=== PATIENT | female | born 1950 | race Caucasian/White ===

== ENCOUNTER 2023-11-21 04:34 | Inpatient (IN) | payer MEDICARE, SELFPAY ==
[2023-11-20 18:42] VITALS: BP 108/73
[2023-11-20 19:02] LABS: % Basophils 0.4 % (0-2); % Eosinophils 3.6 % (0-6); % Immature Granulocytes 0.4 % (0-0.5); % Lymphocytes 16.9 % (20.5-51.1); % Monocytes 6.5 % (1.7-9.3); % Neutrophils 72.2 % (42.2-75.2); Absolute Basophils 0.1 10^3/uL (0-0.2); Absolute Eosinophils 0.4 10^3/uL (0-0.7); Absolute Immature Granulocytes 0.1 10^3/uL (0-0.05); Absolute Lymphocytes 1.9 10^3/uL (1.2-3.4); Absolute Monocytes 0.7 10^3/uL (0.1-0.6); Absolute Neutrophils 8.1 10^3/uL (1.4-6.5); Hematocrit 24.1 % (37.0-47.0); Hemoglobin 7.5 g/dL (12.0-16.0); Mean Corp Hgb Conc. 31.1 g/dL (33.0-37.0); Mean Corpuscular Hgb 23.9 pg (27.0-31.0); Mean Corpuscular Volume 76.8 fL (81.0-99.0); Mean Platelet Volume 9.5 fL (7.4-10.4); Nucleated Red Blood Cells % 0 %; Platelet Count 419 10^3/uL (130-400); Red Blood Cell Count 3.14 10^6/uL (4.20-5.40); White Blood Cell Count 11.3 10^3/uL (4.8-10.8)
[2023-11-20 19:22] LABS: ALT (SGPT) 11 U/L (0-35); AST (SGOT) 14 U/L (14-36); Albumin 3.9 g/dl (3.5-5.0); Alkaline Phosphatase 111 U/L (38-126); Blood Urea Nitrogen 23 mg/dl (7-17); Calcium 9.3 mg/dl (8.4-10.2); Carbon Dioxide 22 mmol/L (22-30); Chloride 101 mmol/L (98-107); Glucose 150 mg/dl (70-99); Potassium 3.9 mmol/L (3.5-5.1); Sodium 135 mmol/L (135-145); Total Bilirubin 0.8 mg/dl (0.2-1.3); Total Protein 6.9 g/dl (6.3-8.2); eGFR 33.63
[2023-11-21] VITALS (27 sets, daily range): BP systolic 81–138; BP diastolic 53–91; BMI 37.1; BMI 35.1
--- NOTE | 2023-11-21 01:09 | ED.GENMED ---
History of Present Illness
General
Chief Complaint: Rectal Bleeding
Source: patient
Exam Limitations: none
Time Seen by Provider: 11/21/23 00:17
Nursing documentation reviewed up to this point in time: agreed with
Travel History
Have you had any contact with someone who has COVID-19?: No
Do you have any symptoms of coronavirus? Fever > 100 degrees, chills, cough, shortness of breath, sore throat, loss of taste or smell, muscle aches, or headache?: No
History of Present Illness
History of Present Illness:
73-year-old female with past medical history of stroke A-fib CHF hypertension hyperlipidemia on Eliquis presents to the ER for rectal bleeding. She reports has been constipated has been straining but she has bloody colored stool seeping out. She
denies any abdominal pain. She does feel weak and lightheaded. Family reports patient is pale.
Past History
Past History
ED Past Medical History: Arrthythmia (AFib), CHF, HTN, Hypercholesterolemia, NIDDM, Hypothyroidism and Other (PNA )
ED Past Surgical History: Gynecological (Tubal ligation)
Social History
Tobacco: Non-smoker
Alcohol: None
Drug: None
Personal:
Living: with family
Employment: Retired
Family History
Family History: Diabetes
Review of Systems
Review of Systems
Allergies reviewed?: Yes
Other source history: family
All Other Systems: ROS reviewed and negative except as documented in HPI and ROS
Constitutional: Reports fatigue
EENT: Reports no symptoms
Respiratory: Reports no symptoms
Cardiac: Reports no symptoms
ABD/GI: Reports other (blood stools )
Musculoskeletal: Reports no symptoms
Skin: Reports no symptoms
Neurological: Reports no symptoms
Psychiatric: Reports no symptoms
Phy Exam
General Physical Exam
General Presentation: no apparent distress
General age: appears stated age
General Skin: warm, dry and pale
General Habitus: elderly
General Mental: alert
General Hydration: appears well hydrated
Cardiovascular Exam
Cardiovascular Exam: tachycardia
Pulmonary Exam
Pulmonary Exam: lungs clear and no respiratory distress
Gastrointestinal Exam
Gastrointestinal Exam: non tender, soft and other (Maroon/bloody-colored stool)
Neurological Exam
Neurological Exam: alert and oriented x3
[place] Coma Scale
Eye Opening: Spontaneous
Verbal Response: Oriented
Motor Response: Obeys Commands
GCS Total Score: 15
Musculoskeletal Exam
Musculoskeletal Exam: full ROM
Skin Exam
Skin Exam: normal color and warm/dry
Psychiatric Exam
Psychiatric Exam: normal mood/affect
Course
Orders/Labs/Results
Orders:
Orders
11/20/23 18:44
Electrocardiogram (*1) Urgent
Reason for Study: Bradycardia / Tachycardia
EKG- Treatment ONCE
PT/INR [Prothrombin Time] Urgent
11/20/23 18:57
Complete Blood Count/With Diff Urgent
Comprehensive Metabolic Panel Urgent
11/21/23 01:08
Electrocardiogram (*1) Stat
Reason for Study: Abdominal Pain
EKG- Treatment ONCE
IV Insert/Care/Rem.- Treatment PRN
11/21/23 01:09
Type+Screen Urgent
IV Insert/Care/Rem.- Treatment PRN
11/21/23 01:12
0.9% Sodium Chloride 500 ml [Nss] 500 ml IV BOLUS
11/21/23 01:34
* Blood Bank Products Urgent
Marybeth Orders: arabella
Blood Bank Products: *Packed RBC Leuko(PRBC's)
Quantity: 2
Transfuse Today: Yes
Reason: Bleeding
Patient will require pre-treatment for transfusion:: No
Comment: obtained
Abnormal Lab Results
11/20/23 11/21/23
18:57 01:02
WBC 11.3 H 10^3/uL
(4.8-10.8)
RBC 3.14 L 10^6/uL
(4.20-5.40)
Hgb 7.5 L g/dL
(12.0-16.0)
Hct 24.1 L %
(37.0-47.0)
MCV 76.8 L fL
(81.0-99.0)
MCH 23.9 L pg
(27.0-31.0)
MCHC 31.1 L g/dL
(33.0-37.0)
RDW 16.0 H %
(11.5-14.5)
Plt Count 419 H 10^3/uL
(130-400)
Abs Immat Gran (auto) 0.1 H 10^3/uL
(0-0.05)
Absolute Neuts (auto) 8.1 H 10^3/uL
(1.4-6.5)
Absolute Monos (auto) 0.7 H 10^3/uL
(0.1-0.6)
Lymphocytes % 16.9 L %
(20.5-51.1)
PT 24.3 H Sec
(11.4-14.6)
BUN 23 H mg/dl
(7-17)
Creatinine 1.6 H mg/dL
(0.6-1.0)
Glucose 150 H mg/dl
(70-99)
11/20/23 18:57
11/20/23 18:57
Vital Signs
Initial and Last Documented VS:
Initial Vital Signs
Temp Pulse Resp BP Pulse Ox
98.2 F 117 16 108/73 98
11/20/23 18:42 11/20/23 18:42 11/20/23 18:42 11/20/23 18:42 11/20/23 18:42
Last Documented Vital Signs
Temp Pulse Resp BP Pulse Ox
98.2 F 117 16 108/73 98
11/20/23 18:42 11/20/23 18:42 11/20/23 18:42 11/20/23 18:42 11/20/23 18:42
Channel Opener consulted with Physician
Channel Opener consulted with physician?: Yes
Name of Physician Consulted: alexandra
MDM/Problems Addressed
Differential Diagnosis Includes:
Not limited to GI bleed hemorrhoids anemia
MDM/Problems Addressed:
Patient is a 73-year-old female on Eliquis for A-fib history presents to the ER for rectal bleeding. Patient has had intermittent bleeding for the past several weeks with constipation on exam there is maroon-colored stool no active bleeding she is
pale and does complain of fatigue. She did take Eliquis tonight as well as this morning. Patient has a hemoglobin of 7.5 with symptomatic anemia on anticoagulation will transfuse. Case reviewed with ED physician
Chronic conditions affecting care:
A-fib on Eliquis
*Pulse Oximetry
Patient hypoxic: no
*Critical Care Note
Total Time (30-74mins, 75-104mins- exclusive of procedures): Not Applicable
ED Attending Note
-
Portions of this chart may have been created with voice recognition software.� Occasional wrong word or��sound alike� substitutions may have occurred due to the inherent limitations of voice recognition software.
Discharge Plan
Departure
Patient Disposition: Admit
Date of Disposition: 11/21/23
Time of Disposition: 01:36
Admit to: Telemetry
Admit to doctor: jose
Presentation/result/management discussed w/ accepting MD/DO: Hospitalist
Patient with high blood pressure during this ER visit?: No
Condition: Fair
Covid-19: Not Applicable
Discharge Problem:
Acute GI bleeding, Symptomatic anemia, Acute renal insufficiency
Prescriptions:
No Action
tamsulosin 0.4 MG capsule
0.4 mg PO DAILY
cholecalciferol (vitamin D3) 1,000 UNITS tablet
1,000 units PO DAILY
insulin degludec [Tresiba FlexTouch U-100] 100 UNIT/ML insulin pen
26 unit SQ DAILY@1600
atorvastatin 40 mg Tablet
40 mg PO DAILY
glipizide 10 mg tablet extended release 24hr
10 mg PO BID@0900,1700
metoprolol succinate 50 MG tablet extended release 24 hr
75 mg PO BID
levothyroxine 125 MCG tablet
125 mcg PO DAILY
Eliquis 5 mg Tablet
5 mg PO BID Qty: 60 0RF
furosemide 40 mg Tablet
40 mg PO DAILY Qty: 30 0RF
potassium chloride 20 mEq Tablet Extended Release
20 meq PO BID
diltiazem HCl 180 mg Capsule,Extended Release 24hr
360 mg PO DAILY Qty: 30 0RF
cefdinir 300 mg capsule
300 mg PO BID Qty: 10 0RF
Referrals:
Pallavi Clarke PA-C [Family Provider] -
Interventions
Interventions:
*ED COVID-19 Vaccine History Last Done: 11/20/23 18:42
Discharge Date and Time
Print Language: TAMAZIGHT
[2023-11-21 01:32] LABS: PT 24.3 Sec (11.4-14.6)
[2023-11-21] MEDS: NSS 500 IV (02:28)
--- NOTE | 2023-11-21 04:23 | HPS.HSE ---
Family Physician
-
Family Physician: Pallavi Clarke PAC
Chief Complaint
-
rectal bleed
History of Present Illness
HPI
73F on chr Eliquis, Persistent AF, PPM implant, Chr HFpEF seen at ER for evalautipon of rectal bleed.
Acute rectal bleeding preceded by constipated
last night noted bloody colored stool seeping out.
No abdominal pain
Associated weakness and lightheaded
Last dose of Eliquis
Medical History
Past Medical History
Past Medical History: Reports Other
Additional Past Medical History:
Arrhythmia (AFib), CHF, HTN, Hypercholesterolemia, NIDDM, Hypothyroidism and Other (PNA )
Past Surgical History: Reports Gynocological (tubal ligation )
Social History
Tobacco: Non-smoker
Alcohol: None
Drug: None
Personal:
Living: With Family
Family History
Family History: Not pertinent
Allergies / Home Medications
Allergies reflects when Allergies were last updated in [employer].
Home Medications with original date entered in [employer]
Allergy/Medication List:
Allergies
Allergy/AdvReac Type Severity Reaction Status Date / Time
sulfamethoxazole Allergy hypotension Verified 11/20/23 18:43
[From Bactrim]
trimethoprim [From Bactrim] Allergy hypotension Verified 11/20/23 18:43
Home Medications
cholecalciferol (vitamin D3) 25 mcg (1,000 unit) tablet 1,000 units PO DAILY Supplement 07/31/21
insulin degludec 100 unit/mL (3 mL) subcutaneous pen (Tresiba FlexTouch U-100 insulin) 26 unit SQ DAILY@1600 Diabetes 07/31/21
tamsulosin 0.4 mg capsule 0.4 mg PO DAILY Urinary issue 07/31/21
atorvastatin 40 mg tablet 40 mg PO DAILY High cholesterol 09/28/22
glipizide 10 mg tablet, extended release 24 hr 10 mg PO BID@0900,1700 Diabetes 09/28/22
levothyroxine 125 mcg tablet 125 mcg PO DAILY Thyroid 09/28/22
metoprolol succinate 50 mg tablet,extended release 24 hr 75 mg PO BID Arrhythmia 09/28/22
apixaban 5 mg tablet (Eliquis) 5 mg PO BID #60 tabs 10/01/22
furosemide 40 mg tablet 40 mg PO DAILY #30 tabs 10/01/22
potassium chloride 20 mEq tablet,extended release 20 meq PO BID 12/02/22
cefdinir 300 mg capsule 300 mg PO BID #10 caps 12/07/22
diltiazem HCl 180 mg capsule,extended release 24 hr 360 mg (2 x 180 mg) PO DAILY #30 caps 12/07/22
Review of Systems
-
Constitutional: Reports No Symptoms
EENT: Reports No Symptoms
Respiratory: Reports No Symptoms
Cardiac: Reports No Symptoms
Abdomen/GI: Reports Bloody Stools
: Reports No Symptoms
Musculoskeletal: Reports No Symptoms
Skin: Reports No Symptoms
Neurological: Reports No Symptoms
Endocrine: Reports No Symptoms
Hematologic/Lymphatic: Reports No Symptoms
Psych: Reports No Symptoms
Physical Exam
Vital Signs
Vital Signs
Temp Pulse Resp BP Pulse Ox
98.2 F 115 21 92/57 98
11/20/23 18:42 11/21/23 04:01 11/21/23 04:01 11/21/23 04:01 11/21/23 04:01
Physical Exam
General: No Apparent Distress, Comfortable and Conversant
HEENT: NormoCephalic, Anicteric and Other (pale conjunctiva )
Cardiac: S1/S2 and Irregular Rhythm; No Murmur
GI: Soft, Non Tender, Non Distended and Normal Bowel Sounds
Rectal: Maroon Stools
Genito-urinary: Deferred by me
Musculoskeletal: No Edema
Skin: Warm, Dry and Other (pale complexion )
Neuro: AO x 3
Psych: Calm
Laboratory Results
-
11/20/23 18:57
11/20/23 18:57
Laboratory Results
PT 24.3 Sec (11.4-14.6) H 11/21/23 01:02
INR 2.20 11/21/23 01:02
Total Bilirubin 0.8 mg/dl (0.2-1.3) 11/20/23 18:57
AST 14 U/L (14-36) 11/20/23 18:57
ALT 11 U/L (0-35) 11/20/23 18:57
Alkaline Phosphatase 111 U/L (38-126) 11/20/23 18:57
Data Reviewed
-
Lab Data: Labs Reviewed by me
Old Records: Reviewed
Impression/Plan
-
Reviewed VS: remarkable for HR 115 BP 97/66
Data
WCC 11
Hgb 7.5 - bl 12 -13 MCV 75
Plt 419
INR 2.2
BUN 23
Cr 1.6 -bl 1.5- 1.8
e GFR 33
11/21/23 @0108Hr EKG
ACCELERATED JUNCTIONAL RHYTHM
NONSPECIFIC ST AND T WAVE ABNORMALITY
ABNORMAL ECG
WHEN COMPARED WITH ECG OF 20-NOV-2023 18:47,
JUNCTIONAL RHYTHM HAS REPLACED SINUS RHYTHM
NONSPECIFIC T WAVE ABNORMALITY HAS REPLACED INVERTED T WAVES IN LATERAL LEADS
11/20/23 @ 1844Hr EKG:
SINUS TACHYCARDIA WITH 1ST DEGREE A-V BLOCK
LOW VOLTAGE QRS
NONSPECIFIC ST AND T WAVE ABNORMALITY
ABNORMAL ECG
WHEN COMPARED WITH ECG OF 06-DEC-2022 03:41,
IL INTERVAL HAS INCREASED
VENT. RATE HAS INCREASED BY 44 BPM
T WAVE INVERSION NOW EVIDENT IN LATERAL LEADS
Last hospitalist admission: 12/02/22 - 12/07/22
Pacemaker implant
Persistent atrial fibrillation with tachybradycardia
Chr HFpEF
UTI
ASSESSMENT & PLAN
Pending Rx reconciliation
Acute maroon/bloody-colored stool painless rectal bleed preceded by constipation and straining
Asso, ACBL severe symptomatic anemia with Hgb7.5
Micrcytosis
Mild hypotension due to acute blood loss
Last dose of Eliquis
DDx; Hemorrhoids, diverticulosis, AVM
- Held eliquis
- T & C
- Blood consented
- agree with 2 units Blood Tx
- To give IV Lasix 40mg in between each units of Blood
- Trend H&H
- IV PPI daily
- IVF
- check ferritin
- GI consult
HX Persistent AG with tachybrady syndrome
PPM implant
Coagulopathy due to Eliquis
- held Eliquis due to GIB
- Held Cardizem, Frusemide , metoprolol due to hypotension
HX chr HFpEH
- Not in acute exacerbation
- To give IV Lasix 40mg in between each units of Blood
- Held schedule PO Lasix
CKD3b
- so far stable Cr
- f/u Cr
IDDM
- Held glipizide
- 1/2 the dose pf Tresiba = 13 units HS due tp NPO
- ISS low
HX CVA
Hyperlipidemia
- on statin can cont when no longer NPO
DVT Px: SCd
Full code
IP TLM
--- NOTE | 2023-11-21 06:02 | W.PN.UPDATE ---
Update Note
Progress Note Update
Patient is hypotensive with BP 81/53, HR 116, resp 17 and 98% on RA. Currently is receiving the first unit of blood. One time order placed of NSS IV bolus of 250cc.
[2023-11-21] MEDS: NSS 250 IV (08:00)
[2023-11-21] MEDS: PROTONIX IV 40 MG IV (08:14)
[2023-11-21] MEDS: NSS (PRESERVATIVE FREE) 10 ML IV (08:14)
[2023-11-21 08:55] LABS: Iron 35 ug/dl (37-170)
[2023-11-21 09:05] LABS: Percent Saturation 8 % (20-50); Total Iron Binding Capacity 437 ug/dl (265-497)
--- NOTE | 2023-11-21 09:07 | CON.GI ---
Addendum entered and electronically signed by Velvet Romero DO 11/21/23 15:28:
The patient was seen and examined by me independently in collaboration with the nurse practitioner.
Past medical history/social history/medications/allergies/family history reviewed.
Lab data and imaging data reviewed.
Briefly, patient is a 73 y.o. 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
hematochezia over the last few weeks. No prior colonoscopy or noninvasive stool testing for CRC screening. She denies any family history of colorectal cancer or advanced polyps. She reports her daughter has Crohns disease, diagnosed at age 20. She
suffers from baseline constipation, does not take any laxatives, states miralax gives her diarrhea, which I suspect is actually overflow diarrhea in the setting of chronic constipation. She was found to be anemic on arrival, hgb 7.5, INR 2.20, MCV
76.8, BUN 23/Cr. 1.6. Iron panel c/w iron deficiency anemia.
Given microcytic, iron deficiency anemia without prior endoscopic evaluation, recommend performing both EGD and Colonoscopy on (as long as INR <1.7). Last dose of eliquis taken yesterday, will allow 48 hours for washout period. Recommend
transfuse to hemoglobin >8 in setting of cardiac disease. Please give a dose of miralax 17 g tonight, clear liquids and full colonoscopy prep tomorrow. Please have patient evaluated by cardiology for pre-procedural risk stratification.
Needs regular bowel regimen on discharge.
Original Note:
Consultation
-
Date/Time Consultation Requested: 11/21/23 @ 04:40
Date/Time Consultation Performed: 11/21/23 @ 09:00
Requesting Provider: RAVIN Powell
Performing Provider: RAVIN Siu; Dr. Brendan Proctor
Reason for Consultation: rectal bleed, Eliquis on hold
Medical History
Chief Complaint / HPI
Chief Complaint: rectal bleeding
History of Present Illness:
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
hypertension, hyperlipidemia, hypothyroidism, DM2, CKD stage 3, who presented to the emergency room with complaints of rectal bleeding, which we are being asked to evaluate for. The pt notes she has been progressively constipated over the past month
which is new. She notes occasional episodes of constipation with diarrhea but overall fairly regular. She will take stool softeners when she gets constipated which usually helps. She notes significant straining to move her bowels recently as they
are difficult to pass. She has tried stool softeners again but this has not helped. She notes for the past 2 weeks she has been seeing dark blood passing when she has a bowel movement. She admits to feeling a 'pop' when trying to have a BM prior to
this onset and felt blood gush at that time. She is unable to quantify the amount of blood but wears a panty liner and it does not saturate the pad. She assumes she has hemorrhoids but has never had a colonoscopy. She generally has not been feeling
well over the past week with complaints of weakness and fatigue. She does admit to STOCK but denies chest pain. She denies any history of GI bleed but notes she had some anemia about a year ago when she was hospitalized with pneumonia. Her appetite
has been somewhat down but feels this is secondary to not feeling well. She otherwise denies any fevers, chills, abdominal pain, nausea, vomiting, dysphagia, unintentional weight loss, or heartburn. She follows with Dr. Harper from cardiology for
Afib and has a PPM for sick sinus syndrome and has had some tachycardia which her medications are being adjusted. She denies any FH CRC or other GI cancers or disorders. She is on Eliquis with her last dose yesterday at 8/9pm. She denies use of
NSAID's. She denies prior EGD/colonoscopy as above. Routine labs on admission showed WBC 11.3, hemoglobin 7.5, MCV 76.8, platelets 419,000, INR 2.20, BUN 23, creatinine 1.6, sodium 135, potassium 3.9, serum iron 35, iron saturation 8 total bilirubin
0.8, AST 14, ALT 11, alk phos 111, with ferritin, vitamin B12, and folate levels pending. EKG showing sinus tachycardia with first-degree AV block with T wave inversion evident in lateral leads. She had a repeat EKG with no significant change
earlier this morning. Noted to be hypotensive and tachycardic this morning, transfused with 1 unit of blood and given an IV fluid bolus with improvement. She denies any complaints currently.
Past Medical History
Past Medical History: Arrhythmias (Chronic atrial fibrillation, tachybradycardia syndrome with permanent pacemaker placement), CHF (Preserved EF), HTN, Hypercholesterolemia, Hypothyroidism, IDDM and Other (CKD stage III)
Past Surgical History: Cardiac (PPM) and Gynecological (tubal ligation)
Family History
Family History: Reviewed & Not Pertinent
Allergies / Home Medications
Allergy/AdvReac Type Severity Reaction Status Date / Time
sulfamethoxazole Allergy hypotension Verified 11/20/23 18:43
[From Bactrim]
trimethoprim [From Bactrim] Allergy hypotension Verified 11/20/23 18:43
�Medication �Instructions �Recorded
cholecalciferol (vitamin D3) 25 1,000 units PO DAILY Supplement 07/31/21
mcg (1,000 unit) tablet
insulin degludec 100 unit/mL (3 26 unit SQ DAILY@1600 Diabetes 07/31/21
mL) subcutaneous pen (Tresiba
FlexTouch U-100 insulin)
tamsulosin 0.4 mg capsule 0.4 mg PO DAILY Urinary issue 07/31/21
atorvastatin 40 mg tablet 40 mg PO DAILY High cholesterol 09/28/22
glipizide 10 mg tablet, extended 10 mg PO BID@0900,1700 Diabetes 09/28/22
release 24 hr
levothyroxine 125 mcg tablet 125 mcg PO DAILY Thyroid 09/28/22
metoprolol succinate 50 mg 75 mg PO BID Arrhythmia 09/28/22
tablet,extended release 24 hr
apixaban 5 mg tablet (Eliquis) 5 mg PO BID #60 tabs 10/01/22
furosemide 40 mg tablet 40 mg PO DAILY #30 tabs 10/01/22
potassium chloride 20 mEq 20 meq PO BID 12/02/22
tablet,extended release
cefdinir 300 mg capsule 300 mg PO BID #10 caps 12/07/22
diltiazem HCl 180 mg 360 mg (2 x 180 mg) PO DAILY #30 12/07/22
capsule,extended release 24 hr caps
Review of Systems
-
History Source: Patient
Constitutional: Reports Fatigue
EENT: Reports No Symptoms
Respiratory: Reports Trouble Breathing
Cardiac: Reports No Symptoms
Abdomen/GI: Reports Constipated and Bloody Stools
: Reports No Symptoms
Musculoskeletal: Reports No Symptoms
Skin: Reports No Symptoms
Neurological: Reports Weakness (generalized)
Vital Signs
Temp Pulse Resp BP Pulse Ox
98.6 F 116 17 103/66 100
11/21/23 08:19 11/21/23 08:19 11/21/23 08:19 11/21/23 08:19 11/21/23 08:19
Physical Exam
Exam
General: Well Developed, Comfortable and Other (pale appearing female in NAD)
HEENT: Normocephalic, Anicteric and Atraumatic
Respiratory: Clear
Cardiac: S1/S2 and Regular Rhythm (tachycardia on tele monitor)
Breast: Deferred by me
GI: Soft, Non Tender, Non Distended, Normal Bowel Sounds and Other (obese abdomen)
Rectal: Brown (brown with BRB oozing from her rectum)
Musculoskeletal: No Edema
Skin: Warm and Dry
Neuro: Awake, Alert and Oriented
Psych: Calm
Results
WBC 11.3 10^3/uL (4.8-10.8) H 11/20/23 18:57
Hgb 7.5 g/dL (12.0-16.0) L 11/20/23 18:57
Hct 24.1 % (37.0-47.0) L 11/20/23 18:57
MCV 76.8 fL (81.0-99.0) L 11/20/23 18:57
Plt Count 419 10^3/uL (130-400) H 11/20/23 18:57
Absolute Neuts (auto) 8.1 10^3/uL (1.4-6.5) H 11/20/23 18:57
PT 24.3 Sec (11.4-14.6) H 11/21/23 01:02
INR 2.20 11/21/23 01:02
Sodium 135 mmol/L (135-145) 11/20/23 18:57
Potassium 3.9 mmol/L (3.5-5.1) 11/20/23 18:57
Chloride 101 mmol/L (98-107) 11/20/23 18:57
Carbon Dioxide 22 mmol/L (22-30) 11/20/23 18:57
BUN 23 mg/dl (7-17) H 11/20/23 18:57
Creatinine 1.6 mg/dL (0.6-1.0) H 11/20/23 18:57
Calcium 9.3 mg/dl (8.4-10.2) 11/20/23 18:57
Total Bilirubin 0.8 mg/dl (0.2-1.3) 11/20/23 18:57
AST 14 U/L (14-36) 11/20/23 18:57
ALT 11 U/L (0-35) 11/20/23 18:57
Alkaline Phosphatase 111 U/L (38-126) 11/20/23 18:57
Prior GI Procedures:
EGD: none
Colonoscopy: none
Assessment / Plan
-
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
hypertension, hyperlipidemia, hypothyroidism, DM2, CKD stage 3, who presented to the emergency room with complaints of rectal bleeding for the last 2 weeks intermittently with new onset of constipation, found to have symptomatic anemia with concern
for lower GI bleeding. Eliquis was held on admission and she was transfused with 1 unit of PRBC pending additional unit. Picture consistent with localized bleeding, possibly hemorrhoidal v diverticular. She is hemodynamically stable at this time,
although mildly tachycardic.
Problem list:
-Rectal bleeding
-Symptomatic microcytic anemia
-Chronic anticoagulation on Eliquis
-OSMANY on CKD
-Tachycardia
-SSS s/p PPM placement
-Afib on AC
Other current medical history:
-Hypothyroidism
-Hypertension
-Hyperlipidemia
-CHF with preserved EF
Recommendations:
-Etiology of rectal bleeding possibly secondary to hemorrhoids v diverticular disease with reported constipation prior v other
---With BRB oozing from her rectum mixed with brown stool seen, suspect this to be hemorrhoidal exacerbated with constipation and Eliquis but with no prior colonoscopy cannot exclude malignancy
-Will review with Dr. Proctor, as the pt has never had a colonoscopy may be beneficial to do inpatient with the degree of her anemia v flex v anoscopy.
-Continue to hold Eliquis
-Monitor h/h and transfuse for hgb less than 7
-CLD OK for today
-Consider bleeding scan v CTA if brisk significant bleeding (if renal function improves but she does have CKD)
-Discussed with Dr. Manzano
-Monitor hemodynamics
-Will need management of constipation as well, can start with MiraLax 1 capful daily
-Consider CRC pending above
-Will follow
-
-
Thank you for consultation and allowing me to participate in the patient's care. Please call the loss prevention agent GI physician during the after hours with any questions or concerns.
[2023-11-21 09:48] LABS: Ferritin 8.3 ng/ml (11.1-264.0)
[2023-11-21 10:19] LABS: Folate 14.8 ng/ml (2.76-20); Vitamin B12 241 pg/ml (239-931)
[2023-11-21] MEDS: LASIX 40 MG IV ×2 (10:45→10:51)
[2023-11-21 11:49] LABS: Glucose - Point of Care 95 mg/dl (70-99)
--- NOTE | 2023-11-21 11:49 | W.PN.HOSP.TC ---
Addendum entered and electronically signed by Demetria Manzano MD 11/21/23 12:06:
non-billable note (H&P signed same calendar date)
Original Note:
Today's Communication/Plan
-
see outlined plan
Assessment / Plan
Assessment / Plan
Assessment:
Lower GI and rectal bleeding, exacerbated by Eliquis
symptomatic microcytic anemia
- Monitor Hb - next repeat is 2pm. Has received 2 urgent units PRBCs for Hb of 7.5 (baseline from last year 12)
- Iron deficiency on labs - start IV iron course tomorrow
- GI consulted
- considering colonoscopy vs flex vs anoscopy
- for now, continue clears
- continue Miralax
- may need colorectal input depending on etiology
Parox A. Fib
Hx of SSS s/p PPM
Chronic HFpEF
- resume Metoprolol with parameters; tachycardic in setting of bleeding
- hold Cardizem
- hold Eliquis
- holding oral Lasix
- IV Lasix given in between PRBCs; monitor I/Os, weights
CKD 3b
- monitor labs
Hypothyroidism - continue LT4
Essential Hypertension
- resume Metoprolol with parameters
- hold Cardizem
Hyperlipidemia - statin
type 2 DM
- continue SSI
- check A1c
- holding Jardiance/Glipizide
- continue Tresiba at 50% dose (13 units from 26 units) while limited intake
reactive thrombocytosis in setting of bleeding
DVT ppx: SCDs
Code: Full
Anticipated Discharge: > 48 hours
Subjective/Interval History
-
Date of Service: November 21, 2023
receiving 2nd unit of blood
no current complaints
Objective Data
-
Labs:
Laboratory Results
0411/21/23 11/21/23
01:02 06:00 11:00
WBC Pending
Hgb Pending
Hct Pending
Plt Count Pending
PT 24.3 H
INR 2.20
Sodium Pending
Potassium Pending
Chloride Pending
Carbon Dioxide Pending
BUN Pending
Creatinine Pending
Glucose Pending
Calcium Pending
11/21/23
14:00
WBC
Hgb Pending
Hct Pending
Plt Count
PT
INR
Sodium
Potassium
Chloride
Carbon Dioxide
BUN
Creatinine
Glucose
Calcium
Vital Signs:
Vital Signs
Temp Pulse Resp BP Pulse Ox
98.7 F 117 14 105/74 97
11/21/23 11:30 11/21/23 11:30 11/21/23 11:30 11/21/23 11:30 11/21/23 09:48
I&O
11/20/23 11/21/23 11/22/23
06:59 06:59 06:59
Intake Total 0 / 0 750 / 750
Balance 0 / 0 750 / 750
Physical Exam
-
General: No Apparent Distress and Obese
HEENT: Normocephalic, Atraumatic and Other (pale)
Respiratory: Clear to Auscultation; Negative Wheezes or Rales
Cardiac: Regular Rhythm, S1/S2 and Tachycardic
Rectal: Deferred by Provider (see GI note)
Genito-urinary: No Costovertebral Tender
Neuro: AO x 3
Psych: Calm
Data Reviewed
-
Total Time Spent with Patient (in minutes): 51
Labs: Labs Reviewed by me
[2023-11-21] MEDS: NOVOLOG FLEXPEN-LOW RESISTANCE SC ×2 (11:53→11:54)
[2023-11-21] MEDS: TOPROL XL 50 MG PO ×2 (14:14→19:53)
--- NOTE | 2023-11-21 15:00 | PTCARENOTE ---
11/20- Patient transferred and oriented to unit without issue. AAOX3; Skin=pale but CDI; Patient is able to independently walk with steady gait to bathroom. +PulsesX4; Cool pale extremitiesX4. Patient currently denies any complaints or needs.
--- NOTE | 2023-11-21 15:29 | W.PN.UPDATE ---
Update Note
Progress Note Update
Billing purposes
[2023-11-21 16:21] LABS: Glucose - Point of Care 241 mg/dl (70-99)
--- NOTE | 2023-11-21 16:32 | CON.CAR ---
Addendum entered and electronically signed by Rd Alvarado MD 11/21/23 18:24:
I saw and examined the patient.
The COMMUNITY SERVICE COORDINATOR's note was reviewed and I agree with the note.
73-year-old patient with paroxysmal atrial fibrillation, mitral annular calcification with moderate stenosis, hypertension diabetes prior subdural hematoma, heart failure preserved ejection fraction who was admitted with GI bleeding in the setting
of Eliquis. Patient had bloody stool and was noted to have severe anemia with a hemoglobin of 7.5 now admitted to the hospitalist with consultation by GI. ECG with possible atrial tachycardia versus sinus tach with first-degree AV block. Patient
normally on combination of beta-joseph and diltiazem. Patient has received PRBC and hemoglobin is up to 10.8. Last dose of Eliquis was about 24 hours ago.
-Hold Eliquis
-Monitor volume status with administration of PRBC.
-By hospitalist at a lower dose. Will continue to monitor response.
-With patient's prior history of PAF/atrial arrhythmias and mitral stenosis she has some increased risk for procedures but considering procedure with GI bleeding would be reasonable to plan to proceed with colonoscopy and EGD on . Patient's
condition will be reassessed tomorrow regarding stability to undergo procedures .
Original Note:
Consultation
Consultation Request
Date/Time Consultation Requested: 11/21/23 16:15
Date/Time Consultation Performed: 11/21/23 16:30
Requesting Provider: RAVIN Siu
Performing Provider: RAVIN Reyes for Dr. Alvarado
Reason for Consultation: Risk assessment
Medical History
-
Chief Complaint: BRBPR
History of Present Illness:
Indu Quesada is a 73-year-old female (known to Dr. Hsu, her primary scrap hooker), with paroxysmal atrial fibrillation (on apixaban), mitral stenosis, prior CVA, hypertension, type 2 diabetes melitis, prior subdural/SAH hemorrhage, HFpEF, and
chronic kidney disease who presented to the emergency department with a chief complaint of bright red blood per rectum. She endorsed constipation and had bloody stool with associated lightheadedness. Hemoglobin on arrival 7.5, last hemoglobin 12.0
in Dec, 2022. She has received 2 units of packed red blood cells. Hemoglobin 10.8 this afternoon. GI plans for colonoscopy. Cardiology was consulted for risk assessment.
Past Medical History
Past Medical History: Arrhythmias (Paroxysmal atrial fibrillation), CHF, CVA, HTN, Hypercholesterolemia, NIDDM, Renal Failure (CKD) and Valvular Disease (Mitral stenosis)
Past Surgical History: None
Social History
Tobacco: Non-Smoker
Alcohol: None
Drug: None
Living: With Family
Family History
Family History: Other (Father from CVA at age 57. Mom had CABG at the age of 68.)
Allergies / Home Medications
Allergy/AdvReac Type Severity Reaction Status Date / Time
sulfamethoxazole Allergy hypotension Verified 11/20/23 18:43
[From Bactrim]
trimethoprim [From Bactrim] Allergy hypotension Verified 11/20/23 18:43
�Medication �Instructions �Recorded �Confirmed �Type
cholecalciferol (vitamin D3) 25 1,000 units PO DAILY Supplement 07/31/21 11/21/23 History
mcg (1,000 unit) tablet
insulin degludec 100 unit/mL (3 26 unit SQ HS Diabetes 07/31/21 11/21/23 History
mL) subcutaneous pen (Tresiba
FlexTouch U-100 insulin)
tamsulosin 0.4 mg capsule 0.4 mg PO DAILY Urinary issue 07/31/21 11/21/23 History
atorvastatin 40 mg tablet 40 mg PO HS High cholesterol 09/28/22 11/21/23 History
glipizide 10 mg tablet, extended 10 mg PO BID@0800,1700 Diabetes 09/28/22 11/21/23 History
release 24 hr
levothyroxine 125 mcg tablet 125 mcg PO DAILY Thyroid 09/28/22 11/21/23 History
apixaban 5 mg tablet (Eliquis) 5 mg PO BID #60 tabs 10/01/22 11/21/23 Rx
furosemide 40 mg tablet 40 mg PO DAILY #30 tabs 10/01/22 11/21/23 Rx
potassium chloride 20 mEq 20 meq PO HS 12/02/22 11/21/23 History
tablet,extended release
diltiazem HCl 360 mg 360 mg PO DAILY Blood Pressure 11/21/23 11/21/23 History
capsule,extended release 24 hr
empagliflozin 25 mg tablet 25 mg PO DAILY Diabetes 11/21/23 11/21/23 History
(Jardiance)
metoprolol succinate 100 mg 100 mg PO BID Blood Pressure 11/21/23 11/21/23 History
tablet,extended release 24 hr
Physical Exam
Vital Signs
Temp Pulse Resp BP Pulse Ox
98.4 F 91 16 120/77 99
11/21/23 15:49 11/21/23 15:49 11/21/23 15:49 11/21/23 15:49 11/21/23 15:49
Impression / Plan
-
Pre-procedure risk assessment - EGD & colonoscopy
-Chest pain free
-No recent HF exacerbation
-No shortness of breath
Anemia, in the setting of LGIB
-S/P PRBC x 2
-Apixaban is on hold
-GI plans for EGD and colonoscopy
Tachycardia
-Possibly atrial tachycardia
-AV agents on hold in the setting of hypotension
-No telemetry for review, reviewed with nurse, may need to resume at low dose
Paroxysmal atrial fibrillation
-AV naveen agents on hold
-Oral Anticoagulation: Apixaban 5mg BID on hold as above
-[id number]: score 7 (Heart failure, HTN, Diabetes Mellitus, prior Stroke/TIA, age 65-73, female gender)
HFpEF, chronic
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
Mod mitral stenosis, peak/mean gradient 18/6mmHg
CKD3b
Type II DM
Data Reviewed
-
EKG: Report Reviewed by me (Sinus tachycardia, possibly atrial tachycardia, rate 114)
Medical Tests (Nuc Med, Echo etc): Report Reviewed by me (Echo as above)
Labs: Labs Reviewed by me
Old Records: Reviewed
[2023-11-21 16:35] LABS: Hematocrit 33.4 % (37.0-47.0); Hemoglobin 10.8 g/dL (12.0-16.0); Mean Corp Hgb Conc. 32.3 g/dL (33.0-37.0); Mean Corpuscular Hgb 25.9 pg (27.0-31.0); Mean Corpuscular Volume 80.1 fL (81.0-99.0); Mean Platelet Volume 9.9 fL (7.4-10.4); Platelet Count 396 10^3/uL (130-400); Red Blood Cell Count 4.17 10^6/uL (4.20-5.40); Red Cell Dist. Width 15.9 % (11.5-14.5); White Blood Cell Count 9.9 10^3/uL (4.8-10.8)
[2023-11-21 16:59] LABS: Blood Urea Nitrogen 22 mg/dl (7-17); Carbon Dioxide 23 mmol/L (22-30); Chloride 108 mmol/L (98-107); Estimated Creatinine Clearance 32 ml/min; Glucose 246 mg/dl (70-99); Potassium 3.8 mmol/L (3.5-5.1); Sodium 139 mmol/L (135-145); eGFR 33.63
[2023-11-21] MEDS: NOVOLOG FLEXPEN-LOW RESISTANCE 2 UNITS SC (17:45)
[2023-11-21 21:06] LABS: Glucose - Point of Care 246 mg/dl (70-99)
[2023-11-21] MEDS: KCL 20 MEQ PO (21:08)
[2023-11-21] MEDS: LIPITOR 40 MG PO (21:08)
[2023-11-21] MEDS: LANTUS 0.130000000000000004 UNITS SC (21:08)
[2023-11-22 03:20] VITALS: BP 121/77
--- NOTE | 2023-11-22 04:45 | DOWNTIME ---
There was a Retrotope Client Striker Out Downtime on 11/22/2023 from 0100 to 11/22/2023 at 0439. Downtime documentation of patient's care, including medication administrations, has been reconciled in the electronic record per guidelines. Refer to the
patient's paper chart under the miscellaneous tab to see printed paper medication records and downtime forms.
[2023-11-22 05:05] VITALS: BMI 34.9
[2023-11-22] MEDS: SYNTHROID 125 MCG PO (06:13)
[2023-11-22 07:47] LABS: Glucose - Point of Care 77 mg/dl (70-99)
[2023-11-22] MEDS: NOVOLOG FLEXPEN-LOW RESISTANCE SC ×2 (07:49→11:44)
[2023-11-22 07:55] VITALS: BP 110/73
[2023-11-22] MEDS: FLOMAX 0.400000000000000022 MG PO (08:04)
[2023-11-22] MEDS: MIRALAX 17 GRAMS PO (08:04)
[2023-11-22] MEDS: PROTONIX IV 40 MG IV (08:05)
[2023-11-22] MEDS: TOPROL XL 50 MG PO (08:05)
[2023-11-22] MEDS: NSS (PRESERVATIVE FREE) 10 ML IV (08:05)
[2023-11-22 09:12] LABS: Glycohemoglobin (HgbA1c) 7.6 % (4.0-5.6)
[2023-11-22 09:36] LABS: Hematocrit 31.1 % (37.0-47.0); Hemoglobin 9.7 g/dL (12.0-16.0); Mean Corp Hgb Conc. 31.2 g/dL (33.0-37.0); Mean Corpuscular Hgb 25.2 pg (27.0-31.0); Mean Corpuscular Volume 80.8 fL (81.0-99.0); Mean Platelet Volume 10.1 fL (7.4-10.4); Platelet Count 355 10^3/uL (130-400); Red Blood Cell Count 3.85 10^6/uL (4.20-5.40); Red Cell Dist. Width 15.9 % (11.5-14.5); White Blood Cell Count 10.1 10^3/uL (4.8-10.8)
[2023-11-22 09:51] LABS: INR 1.52; PT 18.4 Sec (11.4-14.6)
[2023-11-22 10:13] LABS: Blood Urea Nitrogen 20 mg/dl (7-17); Calcium 8.9 mg/dl (8.4-10.2); Carbon Dioxide 23 mmol/L (22-30); Chloride 111 mmol/L (98-107); Estimated Creatinine Clearance 36 ml/min; Glucose 74 mg/dl (70-99); Potassium 4.1 mmol/L (3.5-5.1); Sodium 138 mmol/L (135-145); eGFR 39.48
--- NOTE | 2023-11-22 11:06 | W.PN.GI.CBS2 ---
Today's Communication / Plan
-
EGD and Colonoscopy tomorrow.
Assessment / Plan
-
73-year-old female with a past medical history significant for persistent atrial fibrillation on Eliquis, tachy-thanh syndrome s/p dual chamber PPM, moderate mitral stenosis, CKD 3b, DM2, chronic HFpEF, HLD, hypothyroidism admitted with persistent
small-volume hematochezia, found to be profoundly anemic with iron deficiency, but otherwise, hemodynamically stable.
Recommendations:
-Etiology of rectal bleeding possibly secondary to benign anorectal pathology such as hemorrhoids vs. diverticular disease vs. AVM vs. Dieulafoy vs. ischemic vs. bleeding polyp vs. malignancy
-No prior colonoscopy, family history (daughter) with Crohn's disease; history/clinical symptoms not c/w IBD
-Hgb 7.5 --> 10.8 s/p 2 units of PRBC, repeat this AM was 9.7, recommend maintaining hemoglobin >8 in setting of cardiac disease
-maintain 2 large-bore peripheral gauge IVs
-Iron panel c/w iron deficiency-- started on IV iron
-Continue to hold eliquis
-Appreciate cardiology consultation, will plan to proceed with EGD and Colonoscopy tomorrow
-Clear liquid diet and prep today, NPO PMN
-If patient develops hemodynamically unstable GI Bleeding, please obtain stat CTA (borderline Cr, now improved from 1.6 -->1.4 in setting of CKD3b)
-Needs daily bowel regimen upon discharge
Subjective
Subjective
Date of Service: November 22, 2023
Patient seen and examined at the bedside, overall offers no complaints. She was transfused with 2 units of PRBC, repeat hemoglobin was 10.8, this morning is down to 9.7. She states she continued to have rectal bleeding overnight. INR today is
1.5, down from 2.2 yesterday. She is amenable to both EGD and colonoscopy tomorrow for evaluation of both iron deficiency anemia as well as recurrent rectal bleeding.
Objective
Data Reviewed
Laboratory Data:
Laboratory Results
11/22/23 08:42
11/22/23 08:42
Laboratory Results
PT 18.4 Sec (11.4-14.6) H 11/22/23 08:42
INR 1.52 11/22/23 08:42
Total Bilirubin 0.8 mg/dl (0.2-1.3) 11/20/23 18:57
AST 14 U/L (14-36) 11/20/23 18:57
ALT 11 U/L (0-35) 11/20/23 18:57
Alkaline Phosphatase 111 U/L (38-126) 11/20/23 18:57
Vital Signs and I&O:
Vital Signs
Temp Pulse Resp BP Pulse Ox
97.8 F 124 16 110/73 97
11/22/23 07:55 11/22/23 07:55 11/22/23 07:55 11/22/23 07:55 11/22/23 07:55
I&O
11/21/23 11/22/23 11/23/23
06:59 06:59 06:59
Intake Total 0 / 0 2189
Balance 0 / 0 2189
Physical Exam
Physical Exam
HEENT: Moist mucous membranes
Cardiology: Normal Sinus Rhythm, S1 and S2
Pulmonary: Clear and Other
GI: Soft, Non Distended, Non Tender and Normal Bowel Sounds
Extremities: No Edema
Neuro: Non Focal
[2023-11-22 11:40] LABS: Glucose - Point of Care 85 mg/dl (70-99)
--- NOTE | 2023-11-22 11:55 | W.PN.CD ---
Addendum entered and electronically signed by Spencer Neal MD 11/22/23 12:25:
I saw and examined the patient.
The AGRONOMY TEACHER's note was reviewed and I agree with the note.
Comment: 73F with GIB. Noted to have SVT stuck at 115 bpm
- increase BB
- CV would be challenging given apixaban hold and some uncertainty regarding her ability to tolerate AC afterward.
- OK for EGD/colon in AM
Original Note:
Today's Communication / Plan
-
-increase metoprolol and follow HR/BP
-Egd and colonoscopy are planned for tomorrow
Impression / Plan
-
73-year-old female (known to Dr. Hsu, her primary lawn maintenance worker), with paroxysmal atrial fibrillation (on apixaban), mitral stenosis, prior CVA, hypertension, type 2 diabetes melitis, prior subdural/SAH hemorrhage, HFpEF, and chronic kidney
disease who presented to the emergency department with blood stool and a hemoglobin of 7.5. Eliquis held and PRBC's given.
Pre-procedure risk assessment:
-EGD & colonoscopy (plan is for )
-With patient's prior history of PAF/atrial arrhythmias and mitral stenosis she has some increased risk for procedures, but considering active GI bleeding, would be reasonable to plan to proceed with colonoscopy and EGD on . Denies any SOB,
laying flat without difficulty. Monitor volume and telemetry.
Anemia, in the setting of GIB
-S/P PRBC x 2
-Apixaban is on hold
-GI plans for EGD and colonoscopy
-per patient, blood in stool still noted today
Tachycardia
-looks like atrial tachycardia to my review of telemetry
-some palps at times, but mostly asymptomatic
-BP's were on low end, so diltiazem held and BB started at lower dose. I will decrease to her usual BB dose (metoprolol 100 mg PO BID)
Paroxysmal atrial fibrillation
-BB/CCB plan as above
-Eliquis held
-follow telemetry
HFpEF, chronic
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
Mod mitral stenosis, peak/mean gradient 18/6mmHg
CKD3b
Type II DM
Physical Exam
Vital Signs/Labs
Vital Signs
Temp Pulse Resp BP Pulse Ox
97.8 F 124 16 110/73 97
11/22/23 07:55 11/22/23 07:55 11/22/23 07:55 11/22/23 07:55 11/22/23 07:55
11/21/23 11/22/23 11/23/23
06:59 06:59 06:59
Actual Weight 92 kg 86.438 kg
11/22/23 08:42
11/22/23 08:42
PT 18.4 Sec (11.4-14.6) H 11/22/23 08:42
INR 1.52 11/22/23 08:42
Physical Exam
Constitutional: No acute distress
EENT: Anicteric
Cardiovascular: Rhythm & rate is regular (regular, but tachycardic)
Respiratory: Respiratory effort normal and Lungs clear to auscul.
GI: Soft, Non tender and Normal bowel sounds
Neuro/Psych: AO x 3
Other: Skin (warm and dry)
Data Reviewed
-
Date of Service: November 22, 2023
EKG: Other (atrial tachycardia)
Labs: Labs Reviewed by me
[2023-11-22 12:03] VITALS: BP 106/73
[2023-11-22] MEDS: DULCOLAX 10 MG PO (12:18)
--- NOTE | 2023-11-22 12:30 | W.PN.HOSP.TC ---
Today's Communication/Plan
-
home BB dose; monitor tele
clears for now and prep. NPO p MN for EGD/Colon
Assessment / Plan
Assessment / Plan
Assessment:
Lower GI and rectal bleeding, exacerbated by Eliquis
symptomatic microcytic anemia
- s/p 2 units PRBC. Hb 9.7. Continue to trend
- Iron deficiency on labs - continue IV iron course
- GI following
- continue clears; prep tonight and NPO for EGD/Colon tomorrow
Parox A. Fib
Hx of SSS s/p PPM
Chronic HFpEF
- resume Metoprolol 100mg BID with parameters; tachycardic (SVT) in setting of bleeding
- hold Cardizem
- hold Eliquis
- holding oral Lasix
- IV Lasix prn if giving PRBCs; monitor I/Os, weights
CKD 3b
- monitor labs
Hypothyroidism - continue LT4
Essential Hypertension
- resume Metoprolol with parameters
- hold Cardizem
Hyperlipidemia - statin
type 2 DM
- A1c 7.6%
- holding Jardiance/Glipizide
- continue SSI
- continue Tresiba at 50% dose (13 units from 26 units) while limited intake
reactive thrombocytosis in setting of bleeding
DVT ppx: SCDs
Code: Full
Anticipated Discharge: > 48 hours
Subjective/Interval History
-
Date of Service: November 22, 2023
no complaints
Hb 9.7, INR 1.5
reports rectal bleeding overnight
Objective Data
-
Labs:
Laboratory Results
11/22/23
08:42
WBC 10.1
Hgb 9.7 L
Hct 31.1 L
Plt Count 355
PT 18.4 H
INR 1.52
Sodium 138
Potassium 4.1
Chloride 111 H
Carbon Dioxide 23
BUN 20 H
Creatinine 1.4 H
Glucose 74
Calcium 8.9
Vital Signs:
Vital Signs
Temp Pulse Resp BP Pulse Ox
98.0 F 123 16 106/73 96
11/22/23 12:03 11/22/23 12:03 11/22/23 12:03 11/22/23 12:03 11/22/23 12:03
I&O
11/21/23 11/22/23 11/23/23
06:59 06:59 06:59
Intake Total 0 / 0 2189
Balance 0 / 0 2189
Physical Exam
-
General: No Apparent Distress
HEENT: Normocephalic and Atraumatic
Cardiac: Regular Rhythm, S1/S2 and Tachycardic
Genito-urinary: No Costovertebral Tender
Neuro: AO x 3
Psych: Calm
Data Reviewed
-
Total Time Spent with Patient (in minutes): 42
Labs: Labs Reviewed by me
--- NOTE | 2023-11-22 12:34 | CM ---
Patient received consult for advance directive, paperwork provided to patient. Initial assessment completed. Patient reports she lives wit her son, daughter, daughter in law, and granddaughter in a 2 story home, patient mostly resides on first
floor, ramp to enter with half a step onto porch. Patient reports she has a walker at home and a wheelchair from her , patient reports she mostly ambulates without device. Patient reports VN in the past after a stroke, unsure with who, denies
SNF. Patient confirms PCP Pallavi Clarke through [facility], pharmacy [facility], unsure if she has prescription coverage. Patient denies food insecurities at home. Per Hospitalist note, plan for EGD/colonoscopy . CM will
continue to follow for discharge planning needs.
Plan; home no needs, watch for VN needs.
[2023-11-22] MEDS: FERRLECIT 110 MG IV (13:08)
[2023-11-22] MEDS: NULYTELY SOLUTION 4 LITERS PO (15:43)
[2023-11-22 15:55] VITALS: BP 124/93
[2023-11-22 17:10] LABS: Glucose - Point of Care 210 mg/dl (70-99)
[2023-11-22] MEDS: NOVOLOG FLEXPEN-LOW RESISTANCE 2 UNITS SC (17:14)
[2023-11-22 19:00] VITALS: BP 132/69
[2023-11-22] MEDS: TOPROL XL 100 MG PO (20:28)
[2023-11-22 22:01] LABS: Glucose - Point of Care 184 mg/dl (70-99)
[2023-11-22] MEDS: KCL 20 MEQ PO (22:05)
[2023-11-22] MEDS: LANTUS 0.130000000000000004 UNITS SC (22:05)
[2023-11-22] MEDS: LIPITOR 40 MG PO (22:05)
[2023-11-22 23:00] VITALS: BP 164/98
[2023-11-23 03:00] VITALS: BP 132/90
[2023-11-23 05:45] VITALS: BMI 35.0
[2023-11-23 06:06] LABS: Glucose - Point of Care 108 mg/dl (70-99)
[2023-11-23] MEDS: SYNTHROID 125 MCG PO (06:09)
[2023-11-23] MEDS: NOVOLOG FLEXPEN-LOW RESISTANCE SC ×3 (06:10→17:53)
[2023-11-23 08:00] VITALS: BP 116/79
--- NOTE | 2023-11-23 08:07 | W.PN.HOSP.TC ---
Today's Communication/Plan
-
Plan for upper endoscopy and colonoscopy today.
Assessment / Plan
Assessment / Plan
Physical exam:
General: Well Developed, Well Nourished and No Apparent Distress
HEENT: Normocephalic, Atraumatic and Moist Mucous Membranes
Respiratory: Clear to Auscultation; Negative Wheezes, Rales or Rhonchi
Cardiac: Regular Rhythm, tachycardic, and S1/S2
GI: Soft, Nontender and Nondistended
Musculoskeletal: No Clubbing, No Cyanosis and No Edema
Neuro: Awake, Alert and Oriented
Psych: Calm
Assessment:
Lower GI and rectal bleeding, exacerbated by Eliquis
symptomatic microcytic anemia
- s/p 2 units PRBC. Hb 10.1 today. Continue to trend
- Iron deficiency on labs - continue IV iron course
- GI following
- s/p prep last night and NPO for EGD/Colon today
Parox A. Fib
Hx of SSS s/p PPM
Chronic HFpEF
- resume Metoprolol 100mg BID with parameters; tachycardic (SVT) in setting of bleeding
- hold Cardizem
- hold Eliquis
-INR 1.5 yesterday
- holding oral Lasix
- IV Lasix prn if giving PRBCs; monitor I/Os, weights
-Might require cardioversion but cardiology will reevaluate after GI workup.
CKD 3b
- monitor labs
Hypothyroidism - continue LT4
Essential Hypertension
- resume Metoprolol with parameters
- hold Cardizem
Hyperlipidemia - statin
type 2 DM
- A1c 7.6%
- holding Jardiance/Glipizide
- continue SSI
- continue Tresiba at 50% dose (13 units from 26 units) while limited intake
reactive thrombocytosis in setting of bleeding
DVT ppx: SCDs
Code: Full
Anticipated Discharge: 24 - 48 hours
Subjective/Interval History
-
Date of Service: November 23, 2023
Patient denies any chest pain or shortness of breath. No abdominal pain.
Objective Data
-
Labs:
Laboratory Results
11/23/23
07:39
WBC Pending
Hgb Pending
Hct Pending
Plt Count Pending
Sodium Pending
Potassium Pending
Chloride Pending
Carbon Dioxide Pending
BUN Pending
Creatinine Pending
Glucose Pending
Calcium Pending
Vital Signs:
Vital Signs
Temp Pulse Resp BP Pulse Ox
98 F 131 14 132/90 100
11/23/23 03:00 11/23/23 03:00 11/23/23 03:00 11/23/23 03:00 11/23/23 03:00
I&O
11/22/23 11/23/23 11/24/23
06:59 06:59 06:59
Intake Total 2190 / 2190 1450 / 1450
Balance 2190 / 2190 1450 / 1450
Review of Systems
-
All other systems: Reviewed and negative
[2023-11-23] MEDS: MIRALAX PO (08:16)
[2023-11-23] MEDS: PROTONIX IV 40 MG IV (08:23)
[2023-11-23] MEDS: FLOMAX 0.400000000000000022 MG PO (08:23)
[2023-11-23] MEDS: TOPROL XL 100 MG PO ×2 (08:23→20:05)
[2023-11-23] MEDS: NSS (PRESERVATIVE FREE) 10 ML IV (08:23)
[2023-11-23 08:27] LABS: Hematocrit 32.4 % (37.0-47.0); Hemoglobin 10.1 g/dL (12.0-16.0); Mean Corp Hgb Conc. 31.2 g/dL (33.0-37.0); Mean Corpuscular Hgb 25.3 pg (27.0-31.0); Mean Corpuscular Volume 81.2 fL (81.0-99.0); Mean Platelet Volume 9.9 fL (7.4-10.4); Platelet Count 355 10^3/uL (130-400); Red Blood Cell Count 3.99 10^6/uL (4.20-5.40); Red Cell Dist. Width 16.5 % (11.5-14.5); White Blood Cell Count 9.5 10^3/uL (4.8-10.8)
--- NOTE | 2023-11-23 08:34 | W.PN.CD ---
Today's Communication / Plan
-
-Previously cleared and no changes since -> EGD/colon today
- Will need to sort out SVT after EGD/colonoscopy. May need DARION/CV, which would require some coordination given her GIB/need for AC after CV
Impression / Plan
-
Impression: 73-year-old female (known to Dr. Hsu, her primary trouble operator), with paroxysmal atrial fibrillation (on apixaban), mitral stenosis, prior CVA, hypertension, type 2 diabetes melitis, prior subdural/SAH hemorrhage, HFpEF, and
chronic kidney disease who presented to the emergency department with blood stool and a hemoglobin of 7.5. Eliquis held and PRBC's given.
Plan:
Pre-procedure risk assessment:
-EGD & colonoscopy
-Previously cleared and no changes since -> EGD/colon today
Anemia, in the setting of GIB
-S/P PRBC x 2
-Apixaban is on hold
Tachycardia
- Will need to sort out after EGD/colonoscopy
- May need DARION/CV
Paroxysmal atrial fibrillation
-BB/CCB plan as above
-Eliquis held
-follow telemetry
HFpEF, chronic
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
Mod mitral stenosis, peak/mean gradient 18/6mmHg
CKD3b
Type II DM
Subjective: rare paps.
Physical Exam
Vital Signs/Labs
Vital Signs
Temp Pulse Resp BP Pulse Ox
36.6 C 131 14 132/90 100
11/23/23 03:00 11/23/23 03:00 11/23/23 03:00 11/23/23 03:00 11/23/23 03:00
11/22/23 11/23/23 11/24/23
06:59 06:59 06:59
Actual Weight 190 lb 9 oz 191 lb
11/23/23 07:39
PT 18.4 Sec (11.4-14.6) H 11/22/23 08:42
INR 1.52 11/22/23 08:42
Physical Exam
Constitutional: No acute distress
EENT: Anicteric and Moist mucous membranes
Cardiovascular: Rhythm & rate is regular (Tachycardia), Systolic murmur absent and Diastolic murmur absent
Respiratory: Respiratory effort normal, Lungs clear to auscul., Crackles Absent and Rhonchi Absent
GI: Soft, Distention absent and Normal bowel sounds
Neuro/Psych: Alert
Data Reviewed
-
Date of Service: November 23, 2023
EKG: Other (SVT 115-130)
[2023-11-23 09:18] LABS: Blood Urea Nitrogen 16 mg/dl (7-17); Carbon Dioxide 26 mmol/L (22-30); Chloride 110 mmol/L (98-107); Estimated Creatinine Clearance 39 ml/min; Glucose 83 mg/dl (70-99); Potassium 3.6 mmol/L (3.5-5.1); Sodium 140 mmol/L (135-145); eGFR 43.15
[2023-11-23 13:42] LABS: Glucose - Point of Care 53 mg/dl (70-99)
[2023-11-23 13:45] VITALS: BP 110/84
[2023-11-23 14:01] LABS: Glucose - Point of Care 63 mg/dl (70-99)
--- NOTE | 2023-11-23 14:07 | W.PN.UPDATE ---
Update Note
Progress Note Update
s/p EGD and Colonoscopy today.
EGD Findings:
-Normal Esophagus
-Mild gastritis, biopsied.
-Normal duodenum, biopsies taken to r/o celiac disease
Colonoscopy Findings:
-Copious amounts of formed stool in the rectum. Mild oozing noted, unable to discern where it was coming from. Mucosa underneath stool appeared ulcerated but unable to determine severity/extent due to stool burden
Recc:
-Clear liquid diet, NPO PMN
-Prep for repeat colonoscopy tomorrow
-Orders for enema placed for today as well as tomorrow morning
-Hold eliquis
-Discussed plan with patient following procedure
[2023-11-23 14:23] LABS: Glucose - Point of Care 91 mg/dl (70-99)
--- NOTE | 2023-11-23 15:03 | CM ---
Patient seen bedside, chart reviewed. Plan for repeat colonoscopy tomorrow. CM will continue to be available, will follow for discharge planning needs.
Plan; home no needs likely.
[2023-11-23] MEDS: FLEET MINERAL OIL ENEMA 133 ML RECTAL (15:13)
[2023-11-23] MEDS: FERRLECIT 110 MG IV (15:13)
[2023-11-23] MEDS: NULYTELY SOLUTION 4 LITERS PO (15:13)
[2023-11-23 16:00] VITALS: BP 121/85
[2023-11-23 17:51] LABS: Glucose - Point of Care 81 mg/dl (70-99)
[2023-11-23 19:37] VITALS: BP 130/86
[2023-11-23 21:51] LABS: Glucose - Point of Care 143 mg/dl (70-99)
[2023-11-23] MEDS: LANTUS 0.130000000000000004 UNITS SC (21:52)
[2023-11-23] MEDS: LIPITOR 40 MG PO (21:52)
[2023-11-23] MEDS: KCL 20 MEQ PO (21:52)
[2023-11-23 23:50] VITALS: BP 125/82
[2023-11-24] VITALS (8 sets, daily range): BP systolic 90–125; BP diastolic 60–85; BMI 35.5
[2023-11-24] MEDS: SYNTHROID 125 MCG PO (06:01)
[2023-11-24 06:06] LABS: Glucose - Point of Care 64 mg/dl (70-99)
[2023-11-24 06:27] LABS: Glucose - Point of Care 69 mg/dl (70-99)
[2023-11-24 06:41] LABS: Glucose - Point of Care 81 mg/dl (70-99)
--- NOTE | 2023-11-24 07:16 | W.PN.HOSP.TC ---
Today's Communication/Plan
-
Colonoscopy today. Cardiac monitoring.
Assessment / Plan
Assessment / Plan
Physical exam:
General: Well Developed, Well Nourished and No Apparent Distress
HEENT: Normocephalic, Atraumatic and Moist Mucous Membranes
Respiratory: Clear to Auscultation; Negative Wheezes, Rales or Rhonchi
Cardiac: Regular Rhythm, tachycardic, and S1/S2
GI: Soft, Nontender and Nondistended
Musculoskeletal: No Clubbing, No Cyanosis and No Edema
Neuro: Awake, Alert and Oriented
Psych: Calm
EGD Findings:
-Normal Esophagus
-Mild gastritis, biopsied.
-Normal duodenum, biopsies taken to r/o celiac disease
Colonoscopy Findings:
-Copious amounts of formed stool in the rectum. Mild oozing noted, unable to discern where it was coming from. Mucosa underneath stool appeared ulcerated but unable to determine severity/extent due to stool burden
Assessment:
Lower GI and rectal bleeding, exacerbated by Eliquis
symptomatic microcytic anemia
- s/p 2 units PRBC. Hb 9.6 today. Continue to trend
- Iron deficiency on labs - continue IV iron course
- GI following
- s/p prep last night again and NPO for repeat colonoscopy today.
Asymptomatic hypotension and sinus tachycardia or atrial tachycardia
-Discussed with cardiology today and okay to hold beta-blockers preprocedure.
-Cardiology will continue to follow-up closely
-Holding anticoagulation for upcoming procedure today
Parox A. Fib
Hx of SSS s/p PPM
Chronic HFpEF
- resume Metoprolol 100mg BID with parameters; tachycardic (SVT) in setting of bleeding once able to tolerate oral
- hold Cardizem
- hold Eliquis
-INR 1.5 last time checked
- holding oral Lasix
- IV Lasix prn if giving PRBCs; monitor I/Os, weights
-Might require cardioversion but cardiology will reevaluate after GI workup.
CKD 3b
- monitor labs
Hypothyroidism - continue LT4
Essential Hypertension
- resume Metoprolol with parameters when able to tolerate
- hold Cardizem
Hyperlipidemia - statin
type 2 DM
- A1c 7.6%
- holding Jardiance/Glipizide
- continue SSI
- continue Tresiba at 50% dose (13 units from 26 units) while limited intake
reactive thrombocytosis in setting of bleeding
DVT ppx: SCDs
Code: Full
Anticipated Discharge: 24 - 48 hours
Subjective/Interval History
-
Date of Service: November 24, 2023
Patient thinks that she had a good bowel prep overnight. Heart rate elevated and blood pressure relatively low but denies any palpitations, diaphoresis, lightheadedness. Denies chest pain or shortness of breath.
Objective Data
-
Labs:
Laboratory Results
11/24/23
06:00
WBC Pending
Hgb Pending
Hct Pending
Plt Count Pending
Sodium Pending
Potassium Pending
Chloride Pending
Carbon Dioxide Pending
BUN Pending
Creatinine Pending
Glucose Pending
Calcium Pending
Vital Signs:
Vital Signs
Temp Pulse Resp BP Pulse Ox
98.6 F 135 18 125/82 100
11/24/23 03:49 11/24/23 03:49 11/24/23 03:49 11/24/23 03:49 11/24/23 03:49
I&O
11/23/23 11/24/23 11/25/23
06:59 06:59 06:59
Intake Total 1450 / 1450 480 / 480 240 / 240
Balance 1450 / 1450 480 / 480 240 / 240
Review of Systems
-
All other systems: Reviewed and negative
[2023-11-24 07:31] LABS: Glucose - Point of Care 110 mg/dl (70-99)
[2023-11-24] MEDS: NOVOLOG FLEXPEN-LOW RESISTANCE SC ×3 (07:38→16:29)
--- NOTE | 2023-11-24 07:47 | W.PN.CD ---
Today's Communication / Plan
-
add back on cardiac medication when able
cscope today
Impression / Plan
-
Impression: 73-year-old female (known to Dr. Hsu, her primary toll service observer), with paroxysmal atrial fibrillation (on apixaban), mitral stenosis, prior CVA, hypertension, type 2 diabetes melitis, prior subdural/SAH hemorrhage, HFpEF, and
chronic kidney disease who presented to the emergency department with blood stool and a hemoglobin of 7.5. Eliquis held and PRBC's given.
Plan:
Pre-procedure risk assessment:
-EGD without significant finding & colonoscopy today
-Previously cleared and no changes since -> EGD today
Anemia, in the setting of GIB (7.5 on admit)
-S/P PRBC x 2
-Apixaban is on hold
Tachycardia
-appears to be sinus tachycardia with first degree avblock, cannot rule out AT
- Will need to sort out after EGD/colonoscopy
Paroxysmal atrial fibrillation
-BB/CCB on hold due to NPO resume when able.
-Eliquis held, resume when taking po
-follow telemetry
HFpEF, chronic
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
Mod mitral stenosis, peak/mean gradient 18/6mmHg
CKD3b
Type II DM
Subjective: completed prep last night, no further bleeding, for cscope today
Physical Exam
Vital Signs/Labs
Vital Signs
Temp Pulse Resp BP Pulse Ox
98.6 F 135 18 125/82 100
11/24/23 03:49 11/24/23 03:49 11/24/23 03:49 11/24/23 03:49 11/24/23 03:49
11/23/23 11/24/23 11/25/23
06:59 06:59 06:59
Actual Weight 86.636 kg 87.861 kg
PT 18.4 Sec (11.4-14.6) H 11/22/23 08:42
INR 1.52 11/22/23 08:42
Physical Exam
Constitutional: No acute distress
Cardiovascular: Rhythm & rate is regular, Pedal edema is absent, JVD pressure is normal and Systolic murmur absent
Respiratory: Respiratory effort normal, Lungs clear to auscul., Wheeze Absent, Crackles Absent and Rhonchi Absent
Neuro/Psych: AO x 3
Data Reviewed
-
Date of Service: November 24, 2023
EKG: Tracing Personally Visualized and interpreted (ECG 4/16 ST with first degree av block) and Other (tele svt at 130's---?sinus tachycardia vs at)
[2023-11-24] MEDS: TOPROL XL PO (08:41)
[2023-11-24] MEDS: PROTONIX IV 40 MG IV (08:42)
[2023-11-24] MEDS: MIRALAX PO (08:42)
[2023-11-24] MEDS: NSS (PRESERVATIVE FREE) 10 ML IV (08:42)
[2023-11-24] MEDS: FLOMAX PO (08:47)
[2023-11-24 08:57] LABS: Hematocrit 30.5 % (37.0-47.0); Hemoglobin 9.6 g/dL (12.0-16.0); Mean Corp Hgb Conc. 31.5 g/dL (33.0-37.0); Mean Corpuscular Hgb 25.5 pg (27.0-31.0); Mean Corpuscular Volume 81.1 fL (81.0-99.0); Mean Platelet Volume 10.1 fL (7.4-10.4); Platelet Count 372 10^3/uL (130-400); Red Blood Cell Count 3.76 10^6/uL (4.20-5.40); Red Cell Dist. Width 16.9 % (11.5-14.5); White Blood Cell Count 8.4 10^3/uL (4.8-10.8)
[2023-11-24] MEDS: FLEET MINERAL OIL ENEMA 133 ML RECTAL (09:29)
[2023-11-24 09:33] LABS: Blood Urea Nitrogen 12 mg/dl (7-17); Calcium 9.3 mg/dl (8.4-10.2); Carbon Dioxide 21 mmol/L (22-30); Chloride 110 mmol/L (98-107); Estimated Creatinine Clearance 42 ml/min; Glucose 61 mg/dl (70-99); Magnesium 2.1 mg/dl (1.6-2.3); Potassium 4.1 mmol/L (3.5-5.1); Sodium 141 mmol/L (135-145)
--- NOTE | 2023-11-24 12:14 | W.PN.UPDATE ---
Update Note
Progress Note Update
s/p Colonoscopy today for evaluation of LIZETT and hematochezia.
3 mm polyp removed via cold snare polypectomy found in the ascending colon
Friable, ulcerated and inflamed mucosa found in the distal area with associated superficial ulcer, which bled easily upon contact, biopsies taken. Suspect stercoral colitis/ulcer in setting of constipation vs. mucosal prolapse vs. malignancy vs.
IBD.
Recommendations:
-Hydrocortisone suppositories daily x 1 month
-bowel regimen-- start with miralax 17g BID
-Will contact patient once pathology returns
-follow-up in GI office for ongoing management of acute on chronic constipation
-hold off on small bowel evaluation at this time, given source of bleeding identified
-Okay to resume eliquis tomorrow
GI will sign off. Please call with questions.
[2023-11-24 12:33] LABS: Glucose - Point of Care 95 mg/dl (70-99)
[2023-11-24] MEDS: FERRLECIT 110 MG IV (13:58)
--- NOTE | 2023-11-24 14:28 | CM ---
Patient for colonoscopy today. Patient seen bedside, reports no needs to CM at this time. CM will continue to follow for discharge planning needs.
Plan; home no needs likely.
[2023-11-24 16:21] LABS: Glucose - Point of Care 149 mg/dl (70-99)
[2023-11-24] MEDS: TOPROL XL 100 MG PO (20:24)
[2023-11-24] MEDS: KCL 20 MEQ PO (20:24)
[2023-11-24] MEDS: LIPITOR 40 MG PO (20:24)
[2023-11-24] MEDS: LANTUS 0.130000000000000004 UNITS SC (20:25)
[2023-11-24 21:26] LABS: Glucose - Point of Care 201 mg/dl (70-99)
[2023-11-24] MEDS: ANUSOL HC RECTAL (23:45)
[2023-11-25 03:00] VITALS: BP 107/67
[2023-11-25 06:00] VITALS: BMI 35.6
[2023-11-25] MEDS: SYNTHROID 125 MCG PO (06:27)
[2023-11-25 07:00] VITALS: BP 99/61
[2023-11-25] MEDS: MIRALAX 17 GRAMS PO ×2 (08:00→21:00)
[2023-11-25 08:19] LABS: Glucose - Point of Care 108 mg/dl (70-99)
[2023-11-25 08:43] LABS: Hematocrit 30.9 % (37.0-47.0); Hemoglobin 9.6 g/dL (12.0-16.0); Mean Corp Hgb Conc. 31.1 g/dL (33.0-37.0); Mean Corpuscular Hgb 25.7 pg (27.0-31.0); Mean Corpuscular Volume 82.8 fL (81.0-99.0); Platelet Count 331 10^3/uL (130-400); Red Blood Cell Count 3.73 10^6/uL (4.20-5.40); Red Cell Dist. Width 17.9 % (11.5-14.5); White Blood Cell Count 10.1 10^3/uL (4.8-10.8)
[2023-11-25] MEDS: NOVOLOG FLEXPEN-LOW RESISTANCE SC ×3 (08:54→17:04)
[2023-11-25] MEDS: TOPROL XL 100 MG PO ×2 (08:55→21:00)
[2023-11-25] MEDS: PROTONIX IV 40 MG IV (08:55)
[2023-11-25] MEDS: FLOMAX 0.400000000000000022 MG PO (08:56)
[2023-11-25 09:13] LABS: Blood Urea Nitrogen 16 mg/dl (7-17); Carbon Dioxide 17 mmol/L (22-30); Chloride 113 mmol/L (98-107); Estimated Creatinine Clearance 36 ml/min; Glucose 89 mg/dl (70-99); Potassium 4.5 mmol/L (3.5-5.1); Sodium 140 mmol/L (135-145); eGFR 39.48
[2023-11-25] MEDS: NSS (PRESERVATIVE FREE) 10 ML IV (09:30)
[2023-11-25] MEDS: FLEET MINERAL OIL ENEMA 133 ML RECTAL (09:54)
[2023-11-25 11:35] LABS: Glucose - Point of Care 83 mg/dl (70-99)
[2023-11-25 11:43] VITALS: BP 115/73
--- NOTE | 2023-11-25 11:46 | W.PN.HOSP.TC ---
Today's Communication/Plan
-
see bold
Assessment / Plan
Assessment / Plan
Gen: NAD, AAOx3.
Eyes: EOMI, PERRLA, no scleral icterus.
Neck: supple.
CV: tachy, reg rhythm, +S1/S2, no m/r/g.
Resp: CTAB, no rales, wheezes, or rhonchi.
Abd: +BS, soft, NT, ND
Skin: No rashes.
Neuro: CN 2-12 intact, non-focal.
Psych: Normal mood and affect.
EGD Findings:
-Normal Esophagus
-Mild gastritis, biopsied.
-Normal duodenum, biopsies taken to r/o celiac disease
Colonoscopy Findings:
-3 mm polyp removed via cold snare polypectomy found in the ascending colon. Friable, ulcerated and inflamed mucosa found in the distal area with associated superficial ulcer, which bled easily upon contact, biopsies taken. Suspect stercoral
colitis/ulcer in setting of constipation vs. mucosal prolapse vs. malignancy vs. IBD.
Lower GI and rectal bleeding:
-exacerbated by Eliquis
-symptomatic microcytic acute blood loss anemia
-s/p 2 units pRBC. Hb stable at 9.6 today. Continue to trend
-Iron deficiency on labs - continue IV iron course
-Colonoscopy above. Follow-up biopsy results.
-Anusol suppositories
-GI has signed off. Ok to restart Eliquis as per GI.
Asymptomatic hypotension and sinus tachycardia or atrial tachycardia
-cont BB
-Dr. Alvarado to see today
-? DARION/CV
Other problems:
Paroxysmal atrial fibrillation, h/o SSS s/p PPM: cont BB, restart Eliquis, home Cardizem on hold.
Chronic HFpEF: cont BB
CKD3b
Hypothyroidism: cont Levoxyl - continue LT4
Essential Hypertension: cont BB
Hyperlipidemia: cont statin
DM2: a1c 7.6%. Cont Lantus/SSI/accuchecks
Reactive thrombocytosis in setting of bleeding
FULL/SCDs
Anticipated Discharge: 24 - 48 hours
Subjective/Interval History
-
Date of Service: November 25, 2023
Occasional L-sided chest pressure. Denies SOB.
Objective Data
-
Labs:
Laboratory Results
11/25/23
07:58
WBC 10.1
Hgb 9.6 L
Hct 30.9 L
Plt Count 331
Sodium 140
Potassium 4.5
Chloride 113 H
Carbon Dioxide 17 L
BUN 16
Creatinine 1.4 H
Glucose 89
Calcium 9.0
Vital Signs:
Vital Signs
Temp Pulse Resp BP Pulse Ox
98.3 F 136 24 107/67 96
11/25/23 07:00 11/25/23 08:55 11/25/23 07:00 11/25/23 08:55 11/25/23 07:00
I&O
11/24/23 11/25/23 11/26/23
06:59 06:59 06:59
Intake Total 480 / 480 240 / 240
Balance 480 / 480 240 / 240
[2023-11-25] MEDS: ELIQUIS 5 MG PO ×2 (12:26→21:00)
--- NOTE | 2023-11-25 13:16 | W.PN.CD ---
Today's Communication / Plan
-
Heart rate still not adequately controlled.
Patient now back on usual beta-joseph dose
She was also on diltiazem 360 mg a day. Will resume low-dose short acting Cardizem and titrate as tolerated
Continue to monitor with reinitiation of anticoagulation
Impression / Plan
-
Impression: 73-year-old female (known to Dr. Hsu, her primary surgery manager), with paroxysmal atrial fibrillation (on apixaban), mitral stenosis, prior CVA, hypertension, type 2 diabetes melitis, prior subdural/SAH hemorrhage, HFpEF, and
chronic kidney disease who presented to the emergency department with blood stool and a hemoglobin of 7.5. Eliquis held and PRBC's given.
Plan:
Anemia, in the setting of GIB (7.5 on admit)
-S/P PRBC x 2
-Colonoscopy performed patient with polypectomy also more friable, ulcerated and inflamed mucosa found in the distal area with associated superficial ulcer, which bled easily upon contact, biopsies taken. Suspect stercoral colitis/ulcer in setting
of constipation vs. mucosal prolapse vs. malignancy vs. IBD.
-Eliquis okay to restart per GI. Being restarted by hospitalist. Monitor for recurrent bleeding.
Tachycardia
Patient with suspected atrial tachycardia.
Rates been challenging to control initially blood pressure limited resuming patient's outpatient dosing of metoprolol and Cardizem. Patient back on metoprolol. Will resume low-dose Cardizem. Of note patient had been on 360 a day
Paroxysmal atrial fibrillation
-BB/CCB on hold due to NPO resume when able.
-Eliquis held, resume when taking po
-follow telemetry
HFpEF, chronic
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
Mod mitral stenosis, peak/mean gradient 18/6mmHg
CKD3b
Type II DM
Subjective: Post colonoscopy. Patient palpitations but
Physical Exam
Vital Signs/Labs
Vital Signs
Temp Pulse Resp BP Pulse Ox
98.9 F 139 20 115/73 99
11/25/23 11:43 11/25/23 11:43 11/25/23 11:43 11/25/23 11:43 11/25/23 11:43
11/24/23 11/25/23 11/26/23
06:59 06:59 06:59
Actual Weight 87.861 kg 88.167 kg
11/25/23 07:58
11/25/23 07:58
PT 18.4 Sec (11.4-14.6) H 11/22/23 08:42
INR 1.52 11/22/23 08:42
Magnesium 2.0 mg/dl (1.6-2.3) 11/25/23 07:58
Physical Exam
Constitutional: No acute distress
Cardiovascular: Rhythm & rate is regular (Tachycardic)
Respiratory: Respiratory effort normal
GI: Soft
Neuro/Psych: Alert
Data Reviewed
-
Date of Service: November 25, 2023
Medical Decision Making: Reviewed Test Results
EKG: Report Reviewed by me
Medical Tests (PFT, Pathology etc): Report Reviewed by me
[2023-11-25] MEDS: CARDIZEM 30 MG PO ×2 (13:39→21:35)
[2023-11-25] MEDS: FERRLECIT 110 MG IV (13:40)
[2023-11-25] MEDS: CARDIZEM PO (14:37)
[2023-11-25 15:00] VITALS: BP 92/55
[2023-11-25 16:49] LABS: Glucose - Point of Care 134 mg/dl (70-99)
[2023-11-25 20:05] VITALS: BP 125/75
[2023-11-25] MEDS: LIPITOR 40 MG PO (21:35)
[2023-11-25] MEDS: KCL 20 MEQ PO (21:35)
[2023-11-25] MEDS: ANUSOL HC 25 MG RECTAL (21:36)
[2023-11-25] MEDS: LANTUS 0.130000000000000004 UNITS SC (23:00)
[2023-11-25 23:04] LABS: Glucose - Point of Care 170 mg/dl (70-99)
[2023-11-25 23:06] VITALS: BP 126/86
[2023-11-26 03:19] VITALS: BP 116/69
[2023-11-26 06:00] VITALS: BMI 36.1
[2023-11-26] MEDS: SYNTHROID 125 MCG PO (06:15)
[2023-11-26 07:39] LABS: Glucose - Point of Care 134 mg/dl (70-99)
[2023-11-26 08:00] VITALS: BP 114/76
[2023-11-26] MEDS: TOPROL XL 100 MG PO ×2 (08:11→21:45)
[2023-11-26] MEDS: CARDIZEM 30 MG PO ×2 (08:11→13:18)
[2023-11-26] MEDS: FLOMAX 0.400000000000000022 MG PO (08:11)
[2023-11-26] MEDS: ELIQUIS 5 MG PO ×2 (08:11→21:44)
[2023-11-26] MEDS: NSS (PRESERVATIVE FREE) 10 ML IV (08:12)
[2023-11-26] MEDS: MIRALAX 17 GRAMS PO (08:12)
[2023-11-26] MEDS: FLEET MINERAL OIL ENEMA 133 ML RECTAL (08:12)
[2023-11-26] MEDS: NOVOLOG FLEXPEN-LOW RESISTANCE SC (08:12)
[2023-11-26] MEDS: PROTONIX IV 40 MG IV (08:13)
[2023-11-26 11:30] LABS: Glucose - Point of Care 193 mg/dl (70-99)
--- NOTE | 2023-11-26 11:30 | W.PN.HOSP.TC ---
Today's Communication/Plan
-
see bold
Assessment / Plan
Assessment / Plan
Gen: NAD, AAOx3.
Eyes: EOMI, PERRLA, no scleral icterus.
Neck: supple.
CV: remains tachy, reg rhythm, +S1/S2, no m/r/g.
Resp: remains CTAB, no rales, wheezes, or rhonchi.
Abd: +BS, soft, NT, ND
Skin: No rashes.
Neuro: remains CN 2-12 intact, non-focal.
Psych: Normal mood and affect.
EGD Findings:
-Normal Esophagus
-Mild gastritis, biopsied.
-Normal duodenum, biopsies taken to r/o celiac disease
Colonoscopy Findings:
-3 mm polyp removed via cold snare polypectomy found in the ascending colon. Friable, ulcerated and inflamed mucosa found in the distal area with associated superficial ulcer, which bled easily upon contact, biopsies taken. Suspect stercoral
colitis/ulcer in setting of constipation vs. mucosal prolapse vs. malignancy vs. IBD.
Lower GI and rectal bleeding:
-exacerbated by Eliquis
-symptomatic microcytic acute blood loss anemia
-s/p 2 units pRBC. Hb stable at 9.6 today. Continue to trend
-Iron deficiency on labs - continue IV iron course
-Colonoscopy above. Follow-up biopsy results.
-Anusol suppositories
-GI has signed off. Eliquis restarted as per GI.
Asymptomatic hypotension and sinus tachycardia or atrial tachycardia
-cont BB, short acting cardizem (started 11/25/23)
-Dr. Alvarado to see later today (discussed with Dr. Alvarado)
-? DARION/CV
Other problems:
Paroxysmal atrial fibrillation, h/o SSS s/p PPM: cont BB/Eliquis/short acting cardizem
Chronic HFpEF: cont BB
CKD3b
Hypothyroidism: cont Levoxyl - continue LT4
Essential Hypertension: cont BB
Hyperlipidemia: cont statin
DM2: a1c 7.6%. Cont Lantus/SSI/accuchecks
Reactive thrombocytosis in setting of bleeding
FULL/SCDs
Anticipated Discharge: 24 - 48 hours
Subjective/Interval History
-
Date of Service: November 26, 2023
Denies CP. SOB with ambulation.
Objective Data
-
Vital Signs:
Vital Signs
Temp Pulse Resp BP Pulse Ox
98.6 F 128 18 114/76 98
11/26/23 08:00 11/26/23 08:11 11/26/23 08:00 11/26/23 08:11 11/26/23 08:00
I&O
11/25/23 11/26/23 11/27/23
06:59 06:59 06:59
Intake Total 240 / 240 580 / 580 720 / 720
Balance 240 / 240 580 / 580 720 / 720
[2023-11-26 11:37] VITALS: BP 114/70
[2023-11-26] MEDS: NOVOLOG FLEXPEN-LOW RESISTANCE 1 UNITS SC (11:51)
[2023-11-26 12:31] LABS: Hematocrit 29.3 % (37.0-47.0); Hemoglobin 9.2 g/dL (12.0-16.0); Mean Corp Hgb Conc. 31.4 g/dL (33.0-37.0); Mean Corpuscular Hgb 25.7 pg (27.0-31.0); Mean Corpuscular Volume 81.8 fL (81.0-99.0); Platelet Count 304 10^3/uL (130-400); Red Blood Cell Count 3.58 10^6/uL (4.20-5.40); Red Cell Dist. Width 18.7 % (11.5-14.5); White Blood Cell Count 8.4 10^3/uL (4.8-10.8)
[2023-11-26 12:42] LABS: Blood Urea Nitrogen 18 mg/dl (7-17); Calcium 8.6 mg/dl (8.4-10.2); Carbon Dioxide 21 mmol/L (22-30); Chloride 110 mmol/L (98-107); Estimated Creatinine Clearance 39 ml/min; Glucose 175 mg/dl (70-99); Potassium 4.5 mmol/L (3.5-5.1); Sodium 134 mmol/L (135-145); eGFR 43.15
--- NOTE | 2023-11-26 12:46 | W.PN.CD ---
Today's Communication / Plan
-
rates still in 120s
will titrate cardizme and try to get back to outpatient dosing.
if rates remain fast despite the above and she continues totolerate Eliquis then may cosidier DARION/CV tomorrow.
will keep NPO.
Impression / Plan
-
Impression: 73-year-old female (known to Dr. Hsu, her primary receiver), with paroxysmal atrial fibrillation (on apixaban), mitral stenosis, prior CVA, hypertension, type 2 diabetes melitis, prior subdural/SAH hemorrhage, HFpEF, and
chronic kidney disease who presented to the emergency department with blood stool and a hemoglobin of 7.5. Eliquis held and PRBC's given.
Plan:
Anemia, in the setting of GIB (7.5 on admit)
-S/P PRBC x 2
-Colonoscopy performed patient with polypectomy also more friable, ulcerated and inflamed mucosa found in the distal area with associated superficial ulcer, which bled easily upon contact, biopsies taken. Suspect stercoral colitis/ulcer in setting
of constipation vs. mucosal prolapse vs. malignancy vs. IBD.
-Eliquis okay to restart per GI. Being restarted by hospitalist. Monitor for recurrent bleeding.
Tachycardia
Patient with suspected atrial tachycardia.
Rates been challenging to control initially blood pressure limited resuming patient's outpatient dosing of metoprolol and Cardizem. Patient back on metoprolol. titrating cardizem
Paroxysmal atrial fibrillation
-BB/CCB on hold due to NPO resume when able.
-Eliquis held, resume when taking po
-follow telemetry
HFpEF, chronic
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
Mod mitral stenosis, peak/mean gradient 18/6mmHg
CKD3b
Type II DM
Subjective: Post colonoscopy. Patient palpitations but
Physical Exam
Vital Signs/Labs
Vital Signs
Temp Pulse Resp BP Pulse Ox
98.7 F 136 14 114/70 100
11/26/23 11:37 11/26/23 11:37 11/26/23 11:37 11/26/23 11:37 11/26/23 11:37
11/25/23 11/26/23 11/27/23
06:59 06:59 06:59
Actual Weight 88.167 kg 89.539 kg
11/26/23 12:13
11/26/23 12:13
PT 18.4 Sec (11.4-14.6) H 11/22/23 08:42
INR 1.52 11/22/23 08:42
Magnesium 2.0 mg/dl (1.6-2.3) 11/25/23 07:58
Physical Exam
Constitutional: No acute distress
EENT: Anicteric
Cardiovascular: Rhythm & rate is regular (tachycardic)
Respiratory: Respiratory effort normal
GI: Soft and Non tender
Neuro/Psych: Alert
Data Reviewed
-
Date of Service: November 26, 2023
X-Ray/CT/US/MRI/NUC/PET: Report Reviewed by me
Medical Tests (PFT, Pathology etc): Report Reviewed by me
Labs: Labs Reviewed by me
[2023-11-26] MEDS: CARDIZEM 60 MG PO (13:19)
[2023-11-26] MEDS: FERRLECIT 110 MG IV (13:22)
[2023-11-26 15:02] VITALS: BP 115/75
[2023-11-26 17:06] LABS: Glucose - Point of Care 237 mg/dl (70-99)
[2023-11-26] MEDS: NOVOLOG FLEXPEN-LOW RESISTANCE 2 UNITS SC (17:11)
[2023-11-26] MEDS: CARDIZEM 90 MG PO (17:28)
[2023-11-26 19:42] VITALS: BP 96/61
[2023-11-26 21:17] LABS: Glucose - Point of Care 263 mg/dl (70-99)
[2023-11-26] MEDS: MIRALAX PO ×2 (21:45→21:53)
[2023-11-26] MEDS: KCL 20 MEQ PO (21:46)
[2023-11-26] MEDS: ANUSOL HC 25 MG RECTAL (21:46)
[2023-11-26] MEDS: CARDIZEM PO (21:46)
[2023-11-26] MEDS: LANTUS 0.130000000000000004 UNITS SC (21:46)
[2023-11-26] MEDS: LIPITOR 40 MG PO (21:47)
[2023-11-26 23:16] VITALS: BP 106/71
[2023-11-26 23:51] LABS: Glucose - Point of Care 232 mg/dl (70-99)
[2023-11-27] MEDS: NOVOLOG FLEXPEN-LOW RESISTANCE 2 UNITS SC (00:05)
[2023-11-27 03:53] VITALS: BP 109/74
[2023-11-27 03:54] VITALS: BMI 36.7
[2023-11-27] MEDS: SYNTHROID PO (05:15)
[2023-11-27 05:47] LABS: Glucose - Point of Care 173 mg/dl (70-99)
[2023-11-27] MEDS: NOVOLOG FLEXPEN-LOW RESISTANCE 1 UNITS SC ×2 (05:54→13:42)
[2023-11-27 07:53] VITALS: BP 118/76
[2023-11-27 08:53] LABS: Hematocrit 30.7 % (37.0-47.0); Hemoglobin 9.4 g/dL (12.0-16.0); Mean Corp Hgb Conc. 30.6 g/dL (33.0-37.0); Mean Corpuscular Volume 84.8 fL (81.0-99.0); Mean Platelet Volume 9.9 fL (7.4-10.4); Platelet Count 294 10^3/uL (130-400); Red Blood Cell Count 3.62 10^6/uL (4.20-5.40)
[2023-11-27] MEDS: ELIQUIS 5 MG PO ×2 (09:07→20:44)
[2023-11-27] MEDS: TOPROL XL 100 MG PO (09:07)
[2023-11-27] MEDS: FLOMAX 0.400000000000000022 MG PO (09:07)
[2023-11-27] MEDS: CARDIZEM 90 MG PO (09:08)
[2023-11-27] MEDS: NSS (PRESERVATIVE FREE) 10 ML IV (09:08)
[2023-11-27] MEDS: MIRALAX PO ×4 (09:08→20:44)
[2023-11-27] MEDS: PROTONIX IV 40 MG IV (09:09)
[2023-11-27 09:21] LABS: Blood Urea Nitrogen 17 mg/dl (7-17); Calcium 9.3 mg/dl (8.4-10.2); Carbon Dioxide 18 mmol/L (22-30); Chloride 112 mmol/L (98-107); Estimated Creatinine Clearance 40 ml/min; Glucose 161 mg/dl (70-99); Sodium 138 mmol/L (135-145); eGFR 43.15
[2023-11-27] MEDS: FLEET MINERAL OIL ENEMA RECTAL (09:45)
--- NOTE | 2023-11-27 11:31 | W.PN.CD ---
Today's Communication / Plan
-
EP Consult dictated
DARION/DCCV today
Once in sinus we will initiate sotalol
May need to progress to AV node ablation (PVI/fib ablation is an option but her MV disease makes terminal computer operator sinus less likely to maintain)
80 min spent on consult today.
Impression / Plan
-
Impression: 73-year-old female (known to Dr. Hsu, her primary document management analyst), with paroxysmal atrial fibrillation (on apixaban), mitral stenosis, prior CVA, hypertension, type 2 diabetes melitis, prior subdural/SAH hemorrhage, HFpEF, and
chronic kidney disease who presented to the emergency department with blood stool and a hemoglobin of 7.5. Eliquis held and PRBC's given.
Persistent AFib/flutter
- Long hx of AFib
- At one time felt to be permanent
- But has conversion pause of 7 sec to NSR and pacer placed (December 2022)
- AFib was high burden on pacer checks but became persistent since Jun 2023
- More recently stuck in mostly 2:1 Flutter (likely typical)
- Back on Eliquis
- Reasonable to proceed to DARION/Cardioversion but will need to add AAD or send for ablation to keep in sinus
- Once in sinus will add AAD (sotalol or tikosyn or amiodarone)
- If sinus does not hold then AFib ablation or AV node ablation
- She has had been feeling in general worse since Fall 2022 suggesting fast flutter was bothering here.
Acute blood loss anemia, (Hgb 7.5 on admit) from GI bleed, S/P PRBC x 2 thsi admit
GI bleed
-Colonoscopy performed patient with polypectomy also more friable, ulcerated and inflamed mucosa found in the distal area with associated superficial ulcer, which bled easily upon contact, biopsies taken. Suspect stercoral colitis/ulcer in setting
of constipation vs. mucosal prolapse vs. malignancy vs. IBD.
-Eliquis okay to restart per GI. Being restarted by hospitalist. Monitor for recurrent bleeding.
HFpEF, chronic
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
Mod mitral stenosis, peak/mean gradient 18/6mmHg
CKD3b
Type II DM
Subjective: Post colonoscopy. Patient palpitations but
Physical Exam
Vital Signs/Labs
Vital Signs
Temp Pulse Resp BP Pulse Ox
98.7 F 126 16 118/72 97
11/27/23 07:53 11/27/23 09:08 11/27/23 07:53 11/27/23 09:08 11/27/23 07:53
11/26/23 11/27/23 11/28/23
06:59 06:59 06:59
Actual Weight 89.539 kg 90.832 kg
11/27/23 08:16
11/27/23 08:16
PT 18.4 Sec (11.4-14.6) H 11/22/23 08:42
INR 1.52 11/22/23 08:42
Magnesium 2.0 mg/dl (1.6-2.3) 11/25/23 07:58
Data Reviewed
-
Date of Service: November 27, 2023
--- NOTE | 2023-11-27 12:00 | ITS.CL.CARDI ---
Customer Support Representative - Cardioversion
Cardioversion
Procedure Report:
Date of Procedure: November 27 2023
Procedure: Cardioversion
Indication: Symptomatic atrial fibrillation
Performing Physician: César Solis DO, FACC
Technique: The patient was brought to the holding area. Signed informed consent was obtained. A time out was called and performed. The patient was anesthetized by the anesthesia service. Anticoagulation status was reviewed and appropriate. R2 pads
were placed anteriorly and posteriorly. Following successful DARION, a 250 J synchronized biphasic shock restored normal sinus rhythm without significant bradycardia. There were no complications.
Conclusion: Uncomplicated cardioversion from atrial fibrillation to sinus rhythm.
Recommendation: Routine post cardioversion care. Continue meterman anticoagulation.
[2023-11-27 13:24] LABS: Potassium 4.6 mmol/L (3.5-5.1)
[2023-11-27 13:30] VITALS: BP 115/76
--- NOTE | 2023-11-27 13:38 | W.PN.HOSP.TC ---
Today's Communication/Plan
-
s/p CV/DARION
reduce BB, stop CCB
Amio load
Assessment / Plan
Assessment / Plan
EGD Findings:
-Normal Esophagus
-Mild gastritis, biopsied.
-Normal duodenum, biopsies taken to r/o celiac disease
Colonoscopy Findings:
-3 mm polyp removed via cold snare polypectomy found in the ascending colon. Friable, ulcerated and inflamed mucosa found in the distal area with associated superficial ulcer, which bled easily upon contact, biopsies taken. Suspect stercoral
colitis/ulcer in setting of constipation vs. mucosal prolapse vs. malignancy vs. IBD.
Assessment:
Lower GI and rectal bleeding:
-exacerbated by Eliquis
-symptomatic microcytic acute blood loss anemia
-s/p 2 units pRBC. Hb stable at 9.4 today. Continue to trend
-Iron deficiency on labs - completed IV iron course
-Colonoscopy above. Follow-up biopsy results.
-Anusol suppositories
-GI has signed off. Eliquis restarted as per GI.
Persistent atrial fibrillation, h/o SSS s/p PPM
- cont BB
- s/p DARION/CV today
- Amio started
- continue Eliquis
- follow Cards recs; may initiate Sotalol
Chronic HFpEF: cont BB
CKD3b
Hypothyroidism: cont Levoxyl - continue LT4
Essential Hypertension: cont BB
Hyperlipidemia: cont statin
DM2: a1c 7.6%. Cont Lantus/SSI/accuchecks
Reactive thrombocytosis in setting of bleeding
FULL/SCDs
Anticipated Discharge: 24 - 48 hours
Subjective/Interval History
-
Date of Service: November 27, 2023
s/p cardioversion
no new complaints
Objective Data
-
Labs:
Laboratory Results
11/27/23
08:16
WBC 9.0
Hgb 9.4 L
Hct 30.7 L
Plt Count 294
Sodium 138
Potassium 4.6
Chloride 112 H
Carbon Dioxide 18 L
BUN 17
Creatinine 1.3 H
Glucose 161 H
Calcium 9.3
Vital Signs:
Vital Signs
Temp Pulse Resp BP Pulse Ox
98.7 F 126 16 118/72 97
11/27/23 07:53 11/27/23 09:08 11/27/23 07:53 11/27/23 09:08 11/27/23 07:53
I&O
11/26/23 11/27/23 11/28/23
06:59 06:59 06:59
Intake Total 580 / 580 2330 / 2330
Balance 580 / 580 2330 / 2330
Physical Exam
-
General: No Apparent Distress
HEENT: Normocephalic and Atraumatic
Respiratory: Negative Wheezes or Rales
Cardiac: Regular Rhythm and S1/S2
GI: Soft and Nontender
Neuro: AO x 3
Psych: Calm
Data Reviewed
-
Total Time Spent with Patient (in minutes): 41
Labs: Labs Reviewed by me
[2023-11-27 13:41] LABS: Glucose - Point of Care 153 mg/dl (70-99)
--- NOTE | 2023-11-27 16:02 | CM ---
CM reviewed chart, spoke with Hospitalist, plan for discharge tomorrow, no needs. CM will continue to follow for discharge planning needs.
Plan; no needs.
[2023-11-27 16:05] VITALS: BP 100/61
[2023-11-27] MEDS: PACERONE 400 MG PO ×2 (16:36→22:51)
[2023-11-27 16:56] LABS: Glucose - Point of Care 284 mg/dl (70-99)
[2023-11-27] MEDS: NOVOLOG FLEXPEN-LOW RESISTANCE 3 UNITS SC (16:56)
[2023-11-27 20:08] VITALS: BP 125/61
[2023-11-27] MEDS: TOPROL XL 50 MG PO (20:44)
[2023-11-27 21:30] LABS: Glucose - Point of Care 358 mg/dl (70-99)
[2023-11-27] MEDS: LIPITOR 40 MG PO (22:50)
[2023-11-27] MEDS: KCL 20 MEQ PO (22:50)
[2023-11-27] MEDS: ANUSOL HC RECTAL ×2 (22:50→22:54)
[2023-11-27] MEDS: LANTUS 0.179999999999999993 UNITS SC (22:53)
[2023-11-27 23:39] VITALS: BP 113/70
[2023-11-28 04:44] VITALS: BP 104/63
[2023-11-28 04:51] VITALS: BMI 36.8
[2023-11-28] MEDS: SYNTHROID 125 MCG PO (06:06)
[2023-11-28 07:31] LABS: Glucose - Point of Care 235 mg/dl (70-99)
[2023-11-28 08:01] VITALS: BP 101/65
[2023-11-28 08:34] LABS: Hematocrit 29.8 % (37.0-47.0); Hemoglobin 9.3 g/dL (12.0-16.0); Mean Corp Hgb Conc. 31.2 g/dL (33.0-37.0); Mean Corpuscular Hgb 26.3 pg (27.0-31.0); Mean Corpuscular Volume 84.2 fL (81.0-99.0); Mean Platelet Volume 10.4 fL (7.4-10.4); Platelet Count 286 10^3/uL (130-400); Red Blood Cell Count 3.54 10^6/uL (4.20-5.40); Red Cell Dist. Width 19.7 % (11.5-14.5); White Blood Cell Count 9.9 10^3/uL (4.8-10.8)
[2023-11-28] MEDS: FLOMAX 0.400000000000000022 MG PO (08:59)
[2023-11-28] MEDS: PROTONIX 40 MG PO (09:00)
[2023-11-28] MEDS: ELIQUIS 5 MG PO (09:00)
[2023-11-28] MEDS: MIRALAX PO ×2 (09:00→22:59)
[2023-11-28] MEDS: PACERONE 400 MG PO ×3 (09:00→23:00)
[2023-11-28] MEDS: JARDIANCE 25 MG PO (09:00)
[2023-11-28] MEDS: NOVOLOG FLEXPEN-LOW RESISTANCE 2 UNITS SC (09:00)
[2023-11-28] MEDS: TOPROL XL 50 MG PO ×2 (09:01→23:00)
[2023-11-28] MEDS: NSS (PRESERVATIVE FREE) IV (09:01)
--- NOTE | 2023-11-28 09:05 | W.PN.UPDATE ---
Update Note
Progress Note Update
Preliminary pathology results from patient's colonosocpy on 11/23 with findings of invasive squamous cell carcinoma, well-differentiated, p16 immunostain pending (should return today, per pathology). Discussed findings this morning with patient.
Discussed with primary team, Dr. Manzano. I also consulted colorectal surgery to see patient.
[2023-11-28 09:23] LABS: Blood Urea Nitrogen 23 mg/dl (7-17); Calcium 9.1 mg/dl (8.4-10.2); Carbon Dioxide 18 mmol/L (22-30); Chloride 110 mmol/L (98-107); Estimated Creatinine Clearance 35 ml/min; Glucose 208 mg/dl (70-99); Potassium 5.1 mmol/L (3.5-5.1); Sodium 135 mmol/L (135-145); eGFR 36.34
--- NOTE | 2023-11-28 10:14 | CON.CRS ---
Consultation
-
Date/Time Consultation Requested: 11/28/2023, 09:45
Date/Time Consultation Performed: 11/28/2023, 10:15
Requesting Provider: Velvet Romero DO
Performing Provider: Gerry Bradford MD
Reason for Consultation: anal cancer
Medical History
-
Chief Complaint: anal bleeding
History of Present Illness:
73-year-old with a past medical history of a permanent pacemaker and chronic A-fib on Eliquis, female presents to the emergency department on 11/20 complaining of anal bleeding. The patient states she has been constipated over the past month
which is new for her. She has episodes of constipation and diarrhea and is taking stool softeners when she gets constipated. She states that she has been straining to move her bowels given how hard they are to pass. Normally she was regular before
this instance. She has noticed dark blood clots when she has a bowel movement and has needed to use a panty liner. She also states her appetite has been decreased because she has been not feeling well. She denies fevers or chills. She denies
abdominal pain nausea or vomiting. She denies weight loss. She has never had a colonoscopy before. She denies a history of HPV or cervical dysplasia.
On admission her hemoglobin was 10.8. The patient received 2 units of packed red blood cells in the ER. Gastroenterology was consulted and an EGD and colonoscopy were performed on 11/23/2023. Due to poor prep, the patient again underwent a
colonoscopy on 11/24/2023. A localized area of moderately congested granular friable and ulcerated mucosa was found in the rectum which bled easily. There is also one 3 mm polyp in the ascending colon. Pathology back today on the rectal/anal area
reveals an invasive squamous cell carcinoma. We have been consulted for further surgical opinion.
Past Medical History
Past Medical History: Arrhythmias (atrial fibrillation, tachybradycardia syndrome), CHF, HTN, Hypercholesterolemia and Other (NIDDM, hypothyroidism, CKD)
Past Surgical History: Cardiac (PPM) and Gynecological (tubal ligation)
Social History
Tobacco: Non-Smoker
Alcohol: None
Drug: None
Living: With Family
Family History
Family History: Other (daughter with Crohns)
Allergies / Home Medications
Allergy/AdvReac Type Severity Reaction Status Date / Time
sulfamethoxazole Allergy hypotension Verified 11/20/23 18:43
[From Bactrim]
trimethoprim [From Bactrim] Allergy hypotension Verified 11/20/23 18:43
�Medication �Instructions �Recorded �Confirmed �Type
cholecalciferol (vitamin D3) 25 1,000 units PO DAILY Supplement 07/31/21 11/21/23 History
mcg (1,000 unit) tablet
insulin degludec 100 unit/mL (3 26 unit SQ HS Diabetes 07/31/21 11/21/23 History
mL) subcutaneous pen (Tresiba
FlexTouch U-100 insulin)
tamsulosin 0.4 mg capsule 0.4 mg PO DAILY Urinary issue 07/31/21 11/21/23 History
atorvastatin 40 mg tablet 40 mg PO HS High cholesterol 09/28/22 11/21/23 History
glipizide 10 mg tablet, extended 10 mg PO BID@0800,1700 Diabetes 09/28/22 11/21/23 History
release 24 hr
levothyroxine 125 mcg tablet 125 mcg PO DAILY Thyroid 09/28/22 11/21/23 History
apixaban 5 mg tablet (Eliquis) 5 mg PO BID #60 tabs 10/01/22 11/21/23 Rx
furosemide 40 mg tablet 40 mg PO DAILY #30 tabs 10/01/22 11/21/23 Rx
potassium chloride 20 mEq 20 meq PO HS Electrolyte Repletion 12/02/22 11/21/23 History
tablet,extended release
diltiazem HCl 360 mg 360 mg PO DAILY Blood Pressure 11/21/23 11/21/23 History
capsule,extended release 24 hr
empagliflozin 25 mg tablet 25 mg PO DAILY Diabetes 11/21/23 11/21/23 History
(Jardiance)
metoprolol succinate 100 mg 100 mg PO BID Blood Pressure 11/21/23 11/21/23 History
tablet,extended release 24 hr
Review of Systems
-
History Source: Patient
All other systems: Negative unless noted
Abdomen/GI: Constipated, Bloody Stools and Anorexia
A 10 point review of systems was completed, and was negative except as per HPI.
Physical Exam
Vital Signs
Temp 98.1 F 11/28/23 08:01
Pulse 73 11/28/23 08:01
Resp Rate 16 11/28/23 08:01
Blood pressure 101/65 11/28/23 08:01
SaO2 96 11/28/23 08:01
11/27/23 11/28/23 11/29/23
06:59 06:59 06:59
Actual Weight 90.832 kg 91.2 kg
Body Mass Index (BMI) 36.8
Lab Results / Allergies
11/28/23 08:03
11/28/23 08:03
WBC 9.9 10^3/uL (4.8-10.8) 11/28/23 08:03
Hgb 9.3 g/dL (12.0-16.0) L 11/28/23 08:03
Hct 29.8 % (37.0-47.0) L 11/28/23 08:03
Plt Count 286 10^3/uL (130-400) 11/28/23 08:03
Abs Immat Gran (auto) 0.1 10^3/uL (0-0.05) H 11/20/23 18:57
Neutrophils % 72.2 % (42.2-75.2) 11/20/23 18:57
Allergy/AdvReac Type Severity Reaction Status Date / Time
sulfamethoxazole Allergy hypotension Verified 11/20/23 18:43
[From Bactrim]
trimethoprim [From Bactrim] Allergy hypotension Verified 11/20/23 18:43
Physical Exam
General: Well Developed and Well Nourished
GI: Soft, Non Tender and Non Distended
Rectal: Other (external hemorrhoids, noted posterior anal mass on GUADALUPE, firm, no bleeding on fingertip, no prolapsing mass noted)
Skin: Warm and Dry
Neuro: AO x 3
Assessment / Plan
-
Assessment: 73yo female with a history of atrial fibrillation and PPM, on Eliquis, with rectal bleeding for the past month s/p 2 units PRBCs, found to have an anal mass on colonoscopy - path is invasive squamous cell
Plan:
Discussed diagnosis with patient. Will order CT C/A/P for metastatic work up. I discussed her lowered GFR with her and we will hydrate her prior/after the CT scan. Discussed with hospitalist. I have tentatively placed her on the OR schedule for this
, 11/30/2023 for an [id number] placement with Dr. Bradford. Hold Eliquis for now. Will consult medical oncology. No urgent surgery needed at this time. Will follow.
--- NOTE | 2023-11-28 11:47 | W.PN.CD ---
Today's Communication / Plan
-
- OK to hold eliquis if needed
- No plan for further cardioversion - if AF noted plan for rate control
Impression / Plan
-
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
chronic kidney disease who presented to the emergency department with blood stool and a hemoglobin of 7.5. Eliquis held and PRBC's given.
Persistent AFib/flutter
- Long hx of AFib
- At one time felt to be permanent
- But has conversion pause of 7 sec to NSR and pacer placed (December 2022)
- AFib was high burden on pacer checks but became persistent since Jun 2023
- More recently stuck in mostly 2:1 Flutter (likely typical)
- s/p DARION/ DCCV on 11/28/23
- Back on Eliquis due to cardioversion but GI bleed and biopsy consistent with invasive squamous cell carcinoma
- started on Amiodarone 400mg TID. plan to load for 5 days then 200 mg QD.
- If sinus does not hold then AFib /flutter ablation or AV node ablation
- OK to stop Eliquis if GI work up warrants it.
Acute blood loss anemia, (Hgb 7.5 on admit) from GI bleed, S/P PRBC x 2 thsi admit
GI bleed
-Colonoscopy performed patient with polypectomy also more friable, ulcerated and inflamed mucosa found in the distal area with associated superficial ulcer, which bled easily upon contact, biopsies taken. Suspect stercoral colitis/ulcer in setting
of constipation vs. mucosal prolapse vs. malignancy vs. IBD.
-Eliquis okay to restart per GI. Being restarted by hospitalist. Monitor for recurrent bleeding.
HFpEF, chronic
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
Mod mitral stenosis, peak/mean gradient 18/6mmHg
CKD3b
Type II DM
Subjective: s/p DARION/DCCV yesterday. now in sinus
Physical Exam
Vital Signs/Labs
Vital Signs
Temp Pulse Resp BP Pulse Ox
98.1 F 73 16 101/65 96
11/28/23 08:01 11/28/23 08:01 11/28/23 08:01 11/28/23 08:01 11/28/23 08:01
11/27/23 11/28/23 11/29/23
06:59 06:59 06:59
Actual Weight 90.832 kg 91.2 kg
11/28/23 08:03
11/28/23 08:03
PT 18.4 Sec (11.4-14.6) H 11/22/23 08:42
INR 1.52 11/22/23 08:42
Magnesium 2.0 mg/dl (1.6-2.3) 11/25/23 07:58
Physical Exam
Constitutional: No acute distress and Comfortable
EENT: Anicteric and Moist mucous membranes
Cardiovascular: Rhythm & rate is regular, Pedal edema is absent, JVD present and Systolic murmur present
Respiratory: Respiratory effort normal, Lungs clear to auscul. and Wheeze Absent
GI: Soft, Non tender and Normal bowel sounds
Neuro/Psych: Alert, Oriented and AO x 3
Data Reviewed
-
Date of Service: November 28, 2023
Medical Decision Making: Reviewed Test Results and Independent Historian Assessment
EKG: Tracing Personally Visualized and interpreted
Echo: Report Reviewed by me
Labs: Labs Reviewed by me
Old Records: Reviewed
[2023-11-28 11:56] LABS: Glucose - Point of Care 340 mg/dl (70-99)
[2023-11-28] MEDS: NOVOLOG FLEXPEN-LOW RESISTANCE 4 UNITS SC (12:05)
[2023-11-28 12:14] VITALS: BP 111/57
--- NOTE | 2023-11-28 13:49 | W.PN.HOSP.TC ---
Today's Communication/Plan
-
IV heparin while holding Eliquis
CT A/P with contrast; IVF added for prophylaxis
Colorectal, medical onc consults
Assessment / Plan
Assessment / Plan
EGD Findings:
-Normal Esophagus
-Mild gastritis, biopsied.
-Normal duodenum, biopsies taken to r/o celiac disease
Colonoscopy Findings:
-3 mm polyp removed via cold snare polypectomy found in the ascending colon. Friable, ulcerated and inflamed mucosa found in the distal area with associated superficial ulcer, which bled easily upon contact, biopsies taken. Suspect stercoral
colitis/ulcer in setting of constipation vs. mucosal prolapse vs. malignancy vs. IBD.
Assessment:
Lower GI and rectal bleeding:
- exacerbated by Eliquis
- symptomatic microcytic acute blood loss anemia
- s/p 2 units pRBC. Hb stable at 9.3 today. Continue to trend
- Iron deficiency on labs - completed IV iron course
- Colonoscopy above. Biopsy revealed: invasive squamous cell carcinoma, well-differentiated
- Colorectal consulted. CT A/P with contrast pending.
- Medical oncology consulted
- continue Anusol suppositories daily
Persistent atrial fibrillation, h/o SSS s/p PPM
- cont BB
- s/p DARION/CV 11/26
- Amio started
- holding Eliquis; start IV Heparin drip which requires intensive monitoring of PTT
- follow Cards recs; may initiate Sotalol
Chronic HFpEF: cont BB
CKD3b
- provide IVF for contrast prophylaxis in setting of CT scan
Hypothyroidism: cont Levoxyl - continue LT4
Essential Hypertension: cont BB
Hyperlipidemia: cont statin
DM2: a1c 7.6%. Cont Lantus/SSI/accuchecks
Reactive thrombocytosis in setting of bleeding
FULL/SCDs
Anticipated Discharge: > 48 hours
Subjective/Interval History
-
Date of Service: November 28, 2023
no complaints
she was notified by GI today of findings of cancer from scope biopsies
Objective Data
-
Labs:
Laboratory Results
11/28/23
08:03
WBC 9.9
Hgb 9.3 L
Hct 29.8 L
Plt Count 286
Sodium 135
Potassium 5.1
Chloride 110 H
Carbon Dioxide 18 L
BUN 23 H
Creatinine 1.5 H
Glucose 208 H
Calcium 9.1
Vital Signs:
Vital Signs
Temp Pulse Resp BP Pulse Ox
98.7 F 73 16 111/57 96
11/28/23 12:14 11/28/23 12:14 11/28/23 12:14 11/28/23 12:14 11/28/23 12:14
I&O
11/27/23 11/28/23 11/29/23
06:59 06:59 06:59
Intake Total 2330 / 2330 1220 / 1220
Balance 2330 / 2330 1220 / 1220
Physical Exam
-
General: No Apparent Distress
HEENT: Normocephalic and Atraumatic
Respiratory: Negative Wheezes
Cardiac: Regular Rhythm
GI: Soft
Genito-urinary: No Costovertebral Tender
Neuro: AO x 3
Psych: Calm
Data Reviewed
-
Total Time Spent with Patient (in minutes): 52
Labs: Labs Reviewed by me
--- NOTE | 2023-11-28 14:20 | CON.ONC ---
Impression
Impression
anal squamous cell carcinoma, prelim report
blood loss/iron def anemia, s/p prbcs and IV iron
afib, s/p cardioversion this admission, on Eliquis outpatient, now heparin
Plan
Plan
Discussed diagnosis of anal SCC
Await official path report
Staging CT scans ordered
Port tentatively for 11/29
Monitor CBC, s/p iron infusions
Anticoagulation per cardiology. Monitor for bleeding.
Definitive treatment plans TBD, likely chemo/RT if localized.
Will involve Rad Onc once staging scans and final path have resulted.
Will follow along and arrange f/u at time of discharge
Patient History
History of Present Illness
73 yo F w/ h/o Afib on Eliquis, presented with one month h/o rectal bleeding. EGD and colonoscopy on 11/23/23 showed mild gastritis, and copious amounts of formed stool in the rectum, with mild oozing. Repeat colonoscopy 11/24/23 showed friable,
ulcerated and inflamed mucosa in the distal rectum with ulcerated ulcer, biopsies taken. Per report, prelim is consistent with squamous call carcinoma of the anus, HPV pending. No h/o prior colonoscopy.
Eliquis was held at admission, she was just started on heparin. She required blood transfusion and rec'd a course of IV iron.
Hospital course noted for symptomatic afib, for which she underwent cardioversion.
Staging CT scans have been ordered, tentative port placement .
Past-Medical/Surgical History
Past Medical History
Past Medical History: Reports Other
Additional Past Medical History:
Arrhythmia (AFib), CHF, HTN, Hypercholesterolemia, NIDDM, Hypothyroidism and Other (PNA )
Past Surgical History: Reports Gynocological (tubal ligation )
Social History
Tobacco: Non-smoker
Alcohol: None
Drug: None
Personal:
Living: With Family
Family History
Family History: Not pertinent
Patient Medication
�Medication �Instructions �Recorded �Confirmed �Last Taken �Type
cholecalciferol (vitamin D3) 25 1,000 units PO DAILY Supplement 07/31/21 11/21/23 11/20/23 History
mcg (1,000 unit) tablet
insulin degludec 100 unit/mL (3 26 unit SQ HS Diabetes 07/31/21 11/21/23 11/20/23 History
mL) subcutaneous pen (Tresiba
FlexTouch U-100 insulin)
tamsulosin 0.4 mg capsule 0.4 mg PO DAILY Urinary issue 07/31/21 11/21/23 11/20/23 History
atorvastatin 40 mg tablet 40 mg PO HS High cholesterol 09/28/22 11/21/23 11/20/23 History
glipizide 10 mg tablet, extended 10 mg PO BID@0800,1700 Diabetes 09/28/22 11/21/23 11/20/23 History
release 24 hr
levothyroxine 125 mcg tablet 125 mcg PO DAILY Thyroid 09/28/22 11/21/23 11/20/23 History
apixaban 5 mg tablet (Eliquis) 5 mg PO BID #60 tabs 10/01/22 11/21/23 11/20/23 20:00 Rx
furosemide 40 mg tablet 40 mg PO DAILY #30 tabs 10/01/22 11/21/23 11/20/23 Rx
potassium chloride 20 mEq 20 meq PO HS Electrolyte Repletion 12/02/22 11/21/23 11/20/23 History
tablet,extended release
diltiazem HCl 360 mg 360 mg PO DAILY Blood Pressure 11/21/23 11/21/23 11/20/23 History
capsule,extended release 24 hr
empagliflozin 25 mg tablet 25 mg PO DAILY Diabetes 11/21/23 11/21/23 11/20/23 History
(Jardiance)
metoprolol succinate 100 mg 100 mg PO BID Blood Pressure 11/21/23 11/21/23 11/20/23 History
tablet,extended release 24 hr
Active Medications
Generic Name Dose Route Start Last Admin
Trade Name Freq PRN Reason Stop Dose Admin
Acetaminophen 650 mg 11/21/23 04:39
Acetaminophen 325 Mg Tablet PO 12/19/23 04:38
Q4HPRN PRN
mild pain/GARZA/temp> 100.4F
Amiodarone HCl 400 mg 11/27/23 16:00 11/28/23 09:00
Amiodarone 200 Mg Tablet PO 12/25/23 15:59 400 mg
TID CARLOS Administration
Apixaban 5 mg 11/25/23 12:00 11/28/23 09:00
Apixaban (Eliquis) 5 Mg Tablet PO 12/23/23 11:59 5 mg
BID CARLOS Administration
Atorvastatin Calcium 40 mg 11/21/23 22:00 11/27/23 22:50
Atorvastatin (Lipitor) 40 Mg Tablet PO 12/19/23 21:59 40 mg
HS CARLOS Administration
Dextrose 12.5 grams 11/21/23 04:39
Dextrose 50% (0.5 Grams/Ml) 50 Ml Syringe IV 12/19/23 04:38
[id number] PRN
hypoglycemia
Protocol
Empagliflozin 25 mg 11/28/23 08:45 11/28/23 09:00
Empagliflozin (Jardiance) 25 Mg Tablet PO 12/26/23 08:44 25 mg
DAILY CARLOS Administration
Furosemide 40 mg 11/29/23 08:00
Furosemide 40 Mg Tablet PO 12/27/23 07:59
DAILY CARLOS
Glipizide 10 mg 11/28/23 17:00
Glipizide 5 Mg Extended Release (24 H) Tablet PO 12/26/23 16:59
BID@0800,1700 CARLOS
Glucagon 1 mg 11/21/23 04:39
Glucagon 1 Mg Vial IM 12/19/23 04:38
PRN PRN
hypoglycemia
Protocol
Hydrocortisone Acetate 25 mg 11/24/23 22:00 11/27/23 22:54
Anusol Hc 25 Mg Rectal Suppository RECTAL 12/22/23 21:59 Not Given
HS CARLOS
Insulin Glargine 26 units/ 0.26 mls @ 0 mls/hr 11/28/23 22:00
Device SC 12/25/23 21:59
HS CARLOS
As Directed
Sodium Chloride 1,000 mls @ 70 mls/hr 11/28/23 13:45
Nss IV 11/29/23 04:02
.[id number] CARLOS
Heparin Sodium 25,000 units in 250 mls @ 0 mls/hr 11/28/23 14:00
Heparin 43334 Units/250 Ml IV
PER PROTOCOL CARLOS
Protocol
Per Protocol
Insulin Aspart 0 units 11/27/23 17:00 11/28/23 12:05
Insulin Aspart Low Resistance 300 Units/3 Ml Pen.Injctr SC 12/25/23 16:59 4 units
AC CARLOS Administration
Protocol
Iohexol 0 ml 11/28/23 14:30
Iohexol (240 Mg/Ml) 50 Ml Cat Scan PO 11/28/23 14:31
ONCE ONE
Protocol
Levothyroxine Sodium 125 mcg 11/22/23 06:00 11/28/23 06:06
Levothyroxine 125 Mcg Tablet PO 12/20/23 05:59 125 mcg
DAILY@0600 CARLOS Administration
Metoprolol Succinate 50 mg 11/27/23 20:00 11/28/23 09:01
Metoprolol 50 Mg Extended Release Tablet PO 12/25/23 19:59 50 mg
BID CARLOS Administration
Pantoprazole Sodium 40 mg 11/28/23 08:00 11/28/23 09:00
Pantoprazole 40 Mg Delayed Release Tablet PO 12/26/23 07:59 40 mg
DAILY CARLOS Administration
Polyethylene Glycol 17 grams 11/25/23 08:00 11/28/23 09:00
Polyethylene Glycol Powder 17 Grams Packet PO 12/23/23 07:59 Not Given
BID CARLOS
Potassium Chloride 20 meq 11/21/23 22:00 11/27/23 22:50
Potassium Chloride 20 Meq Extended Release Tablet PO 12/19/23 21:59 20 meq
HS CARLOS Administration
Sodium Chloride 0 flush 11/21/23 05:00
Sodium Chloride 0.9% (Flush) Syringe IV 12/19/23 04:59
PER PROTOCOL CARLOS
Sodium Chloride 10 ml 11/21/23 08:00 11/28/23 09:01
Sodium Chloride 0.9% (Preservative Free) 10 Ml Vial IV 12/19/23 07:59 Not Given
DAILY CARLOS
Tamsulosin HCl 0.4 mg 11/22/23 08:00 11/28/23 08:59
Tamsulosin 0.4 Mg Capsule PO 12/20/23 07:59 0.4 mg
DAILY CARLOS Administration
Physical Exam
-
General: Well Developed, Well Nourished, No Apparent Distress and Comfortable
HEENT: Moist Mucous Membranes
Cardiology: Normal Sinus Rhythm
Pulmonary: Clear
GI: Soft and Normal Bowel Sounds
Musculoskeletal: No Clubbing, No Cyanosis and No Edema
Neurology: Non Focal, No Lateralizing Symptoms and No Word Finding Difficulty
Skin: Warm and Dry
Psych: Calm and Intact Judgement/Insight
Labs
Lab Results
WBC 9.9 10^3/uL (4.8-10.8) 11/28/23 08:03
RBC 3.54 10^6/uL (4.20-5.40) L 11/28/23 08:03
Hgb 9.3 g/dL (12.0-16.0) L 11/28/23 08:03
Hct 29.8 % (37.0-47.0) L 11/28/23 08:03
MCV 84.2 fL (81.0-99.0) 11/28/23 08:03
MCH 26.3 pg (27.0-31.0) L 11/28/23 08:03
MCHC 31.2 g/dL (33.0-37.0) L 11/28/23 08:03
RDW 19.7 % (11.5-14.5) H 11/28/23 08:03
Plt Count 286 10^3/uL (130-400) 11/28/23 08:03
MPV 10.4 fL (7.4-10.4) 11/28/23 08:03
Abs Immat Gran (auto) 0.1 10^3/uL (0-0.05) H 11/20/23 18:57
Absolute Neuts (auto) 8.1 10^3/uL (1.4-6.5) H 11/20/23 18:57
Absolute Lymphs (auto) 1.9 10^3/uL (1.2-3.4) 11/20/23 18:57
Absolute Monos (auto) 0.7 10^3/uL (0.1-0.6) H 11/20/23 18:57
Absolute Eos (auto) 0.4 10^3/uL (0-0.7) 11/20/23 18:57
Absolute Basos (auto) 0.1 10^3/uL (0-0.2) 11/20/23 18:57
Immature Gran % 0.4 % (0-0.5) 11/20/23 18:57
Neutrophils % 72.2 % (42.2-75.2) 11/20/23 18:57
Lymphocytes % 16.9 % (20.5-51.1) L 11/20/23 18:57
Monocytes % 6.5 % (1.7-9.3) 11/20/23 18:57
Eosinophils % 3.6 % (0-6) 11/20/23 18:57
Basophils % 0.4 % (0-2) 11/20/23 18:57
Creatinine 1.5 mg/dL (0.6-1.0) H 11/28/23 08:03
Vital Signs
Vital Signs
Temp Pulse Resp BP Pulse Ox
98.7 F 73 16 111/57 96
11/28/23 12:14 11/28/23 12:14 11/28/23 12:14 11/28/23 12:14 11/28/23 12:14
[2023-11-28] MEDS: OMNIPAQUE 50 ML PO (14:48)
[2023-11-28] MEDS: NSS 1000 IV (14:49)
--- NOTE | 2023-11-28 14:56 | CM ---
Patient seen bedside, offered support. CM reviewed chart, per Hospitalist notes, medical oncology consulted. CM will continue to follow for discharge planning needs.
IMM signed placed in chart.
Plan; will depend on further medical eval.
[2023-11-28 15:03] LABS: APTT 38.3 Sec (23.4-35.0)
[2023-11-28 16:28] VITALS: BP 113/65
[2023-11-28 16:48] LABS: Glucose - Point of Care 160 mg/dl (70-99)
[2023-11-28] MEDS: GLUCOTROL XL (EXTENDED RELEASE) PO (16:53)
[2023-11-28] MEDS: NOVOLOG FLEXPEN-LOW RESISTANCE 1 UNITS SC (16:54)
[2023-11-28 19:15] VITALS: BP 133/77
--- NOTE | 2023-11-28 20:30 | VATNOTE ---
Unsuccessful attempt at IV start x2 at this time. 2nd VAT RN attempted unsuccessfully x1. Due to pt's need for continuous medication infusion and frequent lab draws PICC order was recommended to PCN who will contact provider to obtain order due to
patient's limited venous access.
[2023-11-28 21:26] LABS: Glucose - Point of Care 142 mg/dl (70-99)
--- NOTE | 2023-11-28 21:45 | VATNOTE ---
PICC tip placement in the SVC, notified PCN of same. Asked if a baseline PTT was drawn, PCN states it was drawn a couple of hours ago. Reminded PCN to change all infusion tubing prior to using PICC.
[2023-11-28] MEDS: HEPARIN 25000 UNITS/250 ML IV (22:46)
[2023-11-28] MEDS: ANUSOL HC RECTAL (22:59)
[2023-11-28] MEDS: LANTUS 0.260000000000000009 UNITS SC (22:59)
[2023-11-28] MEDS: KCL 20 MEQ PO (23:00)
--- NOTE | 2023-11-28 23:00 | PTCARENOTE ---
Pt ordered 1x bag of NS and IV heparin gtt at 10 mL/hr with no IV access. Pt's IV removed during CT abd/pelvis d/t leakage. VAT contacted and unable to insert peripheral IV despite multiple attempts. [place] TODD Nickerson notified of difficult
access, need for frequent lab draws and continuous IV infusions as well as port placement planned for . [place] TOD[facility] Nickerson ordered PICC line insertion. Double lumen PICC inserted in right brachial vein by VAT, CXR ordered by this RN
and confirmed placement of right PICC line. Confirmation of placement discussed with VAT. IV NS now infusing at 70 mL/hr and heparin gtt infusing at 10 mL/hr in PICC. Blood return noted in both lumens by this RN before beginning both infusions. Pt
sent for another attempt at CT abd/pelvis after PICC line insertion was confirmed. Will continue to monitor.
[2023-11-28] MEDS: LIPITOR 40 MG PO (23:01)
[2023-11-28 23:09] VITALS: BP 119/71
[2023-11-29] VITALS (9 sets, daily range): BP systolic 74–130; BP diastolic 56–80; PULSE 76; O2SAT 98; BMI 36.5
[2023-11-29 05:25] LABS: % Basophils 0.7 % (0-2); % Eosinophils 4.1 % (0-6); % Immature Granulocytes 0.6 % (0-0.5); % Lymphocytes 15.1 % (20.5-51.1); % Monocytes 5.7 % (1.7-9.3); % Neutrophils 73.8 % (42.2-75.2); Absolute Basophils 0.1 10^3/uL (0-0.2); Absolute Eosinophils 0.4 10^3/uL (0-0.7); Absolute Immature Granulocytes 0.1 10^3/uL (0-0.05); Absolute Lymphocytes 1.3 10^3/uL (1.2-3.4); Absolute Monocytes 0.5 10^3/uL (0.1-0.6); Absolute Neutrophils 6.4 10^3/uL (1.4-6.5); Hematocrit 30.1 % (37.0-47.0); Mean Corp Hgb Conc. 29.9 g/dL (33.0-37.0); Mean Corpuscular Hgb 25.9 pg (27.0-31.0); Mean Corpuscular Volume 86.5 fL (81.0-99.0); Mean Platelet Volume 10.4 fL (7.4-10.4); Nucleated Red Blood Cells % 0 %; Platelet Count 261 10^3/uL (130-400); Red Blood Cell Count 3.48 10^6/uL (4.20-5.40); Red Cell Dist. Width 20.5 % (11.5-14.5); White Blood Cell Count 8.7 10^3/uL (4.8-10.8)
[2023-11-29 06:00] LABS: Blood Urea Nitrogen 20 mg/dl (7-17); Calcium 9.2 mg/dl (8.4-10.2); Carbon Dioxide 19 mmol/L (22-30); Chloride 115 mmol/L (98-107); Estimated Creatinine Clearance 32 ml/min; Glucose 93 mg/dl (70-99); Potassium 4.3 mmol/L (3.5-5.1); Sodium 139 mmol/L (135-145); eGFR 33.63
[2023-11-29] MEDS: SYNTHROID 125 MCG PO (06:12)
[2023-11-29 07:20] LABS: Glucose - Point of Care 89 mg/dl (70-99)
[2023-11-29] MEDS: NOVOLOG FLEXPEN-LOW RESISTANCE SC ×3 (07:32→17:06)
--- NOTE | 2023-11-29 08:05 | W.PN.ONC2 ---
Today's Communication / Plan
-
CT scan negative for metastatic disease. Will need definitive chemoradiation. Port-A-Cath replaced tomorrow.
Anticoagulation management per cardiology based on cardioversion 11/26. Currently on IV heparin. Will need to be held for Port-A-Cath placement.
Impression
Impression
anal squamous cell carcinoma
blood loss/iron def anemia, s/p prbcs and IV iron
afib, s/p cardioversion this admission, on Eliquis outpatient, now heparin
Plan
Plan
Discussed diagnosis of anal SCC by Dr. Bernard yesterday
Staging CT scans show no evidence of metastatic disease in the chest/abdomen/pelvis
Port tentatively for 11/29
Monitor CBC, s/p iron infusions
Anticoagulation per cardiology. Monitor for bleeding.
Definitive treatment plans typically include combination chemoradiation.
To be set up as an outpatient.
Subjective/Objective
Chief Complaint
ACS Heme Onc
Subjective
Patient has no complaints. She is on IV heparin.
Vital Signs:
Vital Signs
Temp Pulse Resp BP Pulse Ox
97.8 F 72 16 129/66 96
11/29/23 07:58 11/29/23 07:58 11/29/23 07:58 11/29/23 07:58 11/29/23 07:58
Lab Results:
Laboratory Data
WBC 8.7 10^3/uL (4.8-10.8) 11/29/23 05:05
Hgb 9.0 g/dL (12.0-16.0) L 11/29/23 05:05
Plt Count 261 10^3/uL (130-400) 11/29/23 05:05
PT 18.4 Sec (11.4-14.6) H 11/22/23 08:42
INR 1.52 11/22/23 08:42
APTT 49.0 Sec (23.4-35.0) H 11/29/23 05:05
eGFR 33.63 11/29/23 05:05
Physical Exam
HEENT: No Jaundice
Cardiology: S1 and S2
Pulmonary: Clear
GI: Soft
[2023-11-29] MEDS: GLUCOTROL XL (EXTENDED RELEASE) 10 MG PO ×2 (08:35→17:07)
[2023-11-29] MEDS: FLOMAX 0.400000000000000022 MG PO (08:35)
[2023-11-29] MEDS: PACERONE 400 MG PO ×3 (08:35→22:38)
[2023-11-29] MEDS: TOPROL XL 50 MG PO ×2 (08:36→20:11)
[2023-11-29] MEDS: NSS (PRESERVATIVE FREE) IV (08:36)
[2023-11-29] MEDS: MIRALAX PO ×2 (08:36→20:11)
[2023-11-29] MEDS: JARDIANCE 25 MG PO (08:36)
[2023-11-29] MEDS: LASIX 40 MG PO (08:36)
[2023-11-29] MEDS: PROTONIX 40 MG PO (08:36)
[2023-11-29 09:34] LABS: Total Protein 6.1 g/dl (6.3-8.2)
[2023-11-29 10:12] LABS: LDH 207 U/L (120-246)
[2023-11-29 11:17] LABS: Body Fluid pH 7.43
--- NOTE | 2023-11-29 11:19 | W.PN.UPDATE ---
Update Note
Progress Note Update
Attempted to round on patient but she was not in the room due to a procedure. Discussed case with hospitalist. NPO at midnight for port tomorrow. Hold heparin gtt at midnight.
[2023-11-29 11:27] LABS: Body Fluid Amylase < 30 U/L; Body Fluid Glucose 103 mg/dl; Body Fluid LDH < 90 U/L; Body Fluid Protein < 2.0 g/dl; Body Fluid Triglycerides < 30 mg/dl
[2023-11-29 11:29] LABS: Body Fluid Mononuclear 92.7 %; Body Fluid Polymorphonuclear 7.3 %; Body Fluid WBC 232 /CUMM
[2023-11-29 11:36] LABS: Body Fluid Second Tech EF
--- NOTE | 2023-11-29 11:44 | W.PN.HOSP.TC ---
Today's Communication/Plan
-
s/p thoracentesis
hold IV heparin @ [place] for PORT placement
Assessment / Plan
Assessment / Plan
EGD Findings:
-Normal Esophagus
-Mild gastritis, biopsied.
-Normal duodenum, biopsies taken to r/o celiac disease
Colonoscopy Findings:
-3 mm polyp removed via cold snare polypectomy found in the ascending colon. Friable, ulcerated and inflamed mucosa found in the distal area with associated superficial ulcer, which bled easily upon contact, biopsies taken. Suspect stercoral
colitis/ulcer in setting of constipation vs. mucosal prolapse vs. malignancy vs. IBD.
Assessment:
Lower GI and rectal bleeding:
- exacerbated by Eliquis
- symptomatic microcytic acute blood loss anemia
- s/p 2 units pRBC. Hb stable at 9.0 today. Continue to trend
- Iron deficiency on labs - completed IV iron course
- Colonoscopy above. Biopsy revealed: invasive squamous cell carcinoma, well-differentiated
- Colorectal consulted. CT C/A/P without evidence of mets
- Medical oncology consulted
- for PORT placement tomorrow
- continue Anusol suppositories daily
Persistent atrial fibrillation, h/o SSS s/p PPM
- cont BB
- s/p DARION/CV 11/26
- Amio continues
- holding Eliquis; continue IV Heparin drip which requires intensive monitoring of PTT; will have to hold it at midnight for PORT placement in AM
- follow Cards recs
Moderate R pleural effusion
- s/p thoracentesis 11/28; cytology pending
Chronic HFpEF: cont BB
CKD3b
- monitor BMP
Hypothyroidism: cont Levoxyl - continue LT4
Essential Hypertension: cont BB
Hyperlipidemia: cont statin
DM2: a1c 7.6%. Cont Lantus/SSI/accuchecks
Reactive thrombocytosis in setting of bleeding
FULL/IV Heparin
Anticipated Discharge: > 48 hours
Subjective/Interval History
-
Date of Service: November 29, 2023
seen s/p thoracentesis 700 cc removed
denies any new complaints at present
some trickle bleed at times but vitals/Hb relatively stable; she is comfortable to continue AC
Objective Data
-
Labs:
Laboratory Results
11/29/23 11/29/23 11/29/23
05:05 11:56 17:35
WBC 8.7
Hgb 9.0 L
Hct 30.1 L
Plt Count 261
APTT 49.0 H Cancelled Pending
Sodium 139
Potassium 4.3
Chloride 115 H
Carbon Dioxide 19 L
BUN 20 H
Creatinine 1.6 H
Glucose 93
Calcium 9.2
Vital Signs:
Vital Signs
Temp Pulse Resp BP Pulse Ox
98 F 69 16 117/65 96
11/29/23 10:00 11/29/23 10:35 11/29/23 10:35 11/29/23 10:35 11/29/23 10:00
I&O
11/28/23 11/29/23 11/30/23
06:59 06:59 06:59
Intake Total 1220 / 1220 1150 / 1150
Balance 1220 / 1220 1150 / 1150
Physical Exam
-
General: No Apparent Distress
HEENT: Normocephalic and Atraumatic
Respiratory: Negative Wheezes or Rales
Cardiac: Regular Rhythm and S1/S2
GI: Soft
Neuro: AO x 3
Psych: Calm
Data Reviewed
-
Total Time Spent with Patient (in minutes): 51
Labs: Labs Reviewed by me
[2023-11-29 12:11] LABS: Glucose - Point of Care 163 mg/dl (70-99)
--- NOTE | 2023-11-29 14:20 | CM ---
Patient seen bedside, reports no needs at this time. Per Hospitalist patient for PORT placement tomorrow. PT assessed patient, no skilled need. CM will continue to follow for discharge planning needs.
Plan; home no needs likely.
[2023-11-29 16:51] LABS: Glucose - Point of Care 81 mg/dl (70-99)
[2023-11-29] MEDS: LANTUS SC (17:05)
[2023-11-29 18:28] LABS: APTT 60.1 Sec (23.4-35.0)
[2023-11-29 21:19] LABS: Glucose - Point of Care 164 mg/dl (70-99)
[2023-11-29] MEDS: HEPARIN 25000 UNITS/250 ML IV (22:20)
[2023-11-29] MEDS: ANUSOL HC RECTAL (22:37)
[2023-11-29] MEDS: KCL 20 MEQ PO (22:38)
[2023-11-29] MEDS: LIPITOR 40 MG PO (22:38)
[2023-11-30] VITALS (19 sets, daily range): BP systolic 74–149; BP diastolic 52–92; BMI 35.2
--- NOTE | 2023-11-30 | PTCARENOTE ---
Heparin gtt on hold per MD order d/t port placement procedure in AM 11/29.
[2023-11-30] MEDS: SYNTHROID PO (04:16)
[2023-11-30 05:11] LABS: % Basophils 0.5 % (0-2); % Eosinophils 3.8 % (0-6); % Immature Granulocytes 0.2 % (0-0.5); % Lymphocytes 19.7 % (20.5-51.1); % Neutrophils 69.8 % (42.2-75.2); Absolute Basophils 0.1 10^3/uL (0-0.2); Absolute Eosinophils 0.4 10^3/uL (0-0.7); Absolute Lymphocytes 1.8 10^3/uL (1.2-3.4); Absolute Monocytes 0.6 10^3/uL (0.1-0.6); Absolute Neutrophils 6.5 10^3/uL (1.4-6.5); Hematocrit 29.7 % (37.0-47.0); Hemoglobin 9.1 g/dL (12.0-16.0); Mean Corp Hgb Conc. 30.6 g/dL (33.0-37.0); Mean Corpuscular Hgb 26.5 pg (27.0-31.0); Mean Corpuscular Volume 86.6 fL (81.0-99.0); Mean Platelet Volume 9.8 fL (7.4-10.4); Nucleated Red Blood Cells % 0 %; Platelet Count 237 10^3/uL (130-400); Red Blood Cell Count 3.43 10^6/uL (4.20-5.40); Red Cell Dist. Width 21.1 % (11.5-14.5); White Blood Cell Count 9.3 10^3/uL (4.8-10.8)
[2023-11-30 05:43] LABS: Blood Urea Nitrogen 21 mg/dl (7-17); Carbon Dioxide 22 mmol/L (22-30); Chloride 114 mmol/L (98-107); Estimated Creatinine Clearance 29 ml/min; Glucose 40 mg/dl (70-99); Potassium 4.2 mmol/L (3.5-5.1); Sodium 143 mmol/L (135-145)
[2023-11-30 05:46] LABS: Glucose - Point of Care 50 mg/dl (70-99)
[2023-11-30] MEDS: DEXTROSE 50% SYRINGE 12.5 GRAMS IV ×2 (05:49→11:38)
[2023-11-30 06:23] LABS: Glucose - Point of Care 112 mg/dl (70-99)
--- NOTE | 2023-11-30 06:29 | PTCARENOTE ---
0600: Pt's lab draw glucose was 40, accucheck 50. Pt asymptomatic at this time. Pt provided IV Dextrose 50% as pt is currently NPO for port placement this AM. [place] [employer] FINAL [employer]PECT[employer] Princess Nickerson notified, will recheck blood sugar in 15 minutes.
0615: Rechecked accucheck was 112, pt still asymptomatic. [place] TODD Nickerson notified of results, no new orders at this time. Will pass along to dayshift PCT to recheck blood sugar at 0815 and 1015, then 0300 tomorrow morning 11/30.
--- NOTE | 2023-11-30 07:55 | W.PN.CD ---
Today's Communication / Plan
-
- Port placement today
- Please call with questions.
Impression / Plan
-
Impression: 73-year-old female (known to Dr. 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
chronic kidney disease who presented to the emergency department with blood stool and a hemoglobin of 7.5. Eliquis held and PRBC's given.
Persistent AFib/flutter
- Long hx of AFib
- AF one time felt to be permanent
- But has conversion pause of 7 sec to NSR and pacer placed (December 2022)
- AFib was high burden on pacer checks but became persistent since Jun 2023
- More recently stuck in mostly 2:1 Flutter (likely typical)
- s/p DARION/ DCCV on 11/28/23
- Back on Eliquis due to cardioversion but GI bleed and biopsy consistent with invasive squamous cell carcinoma
- started on Amiodarone 400mg TID (day 3/5). plan to load for 5 days then 200 mg QD.
- If sinus does not hold then AFib /flutter ablation or AV node ablation
- OK to stop Eliquis if GI work up warrants it.
Acute blood loss anemia, (Hgb 7.5 on admit) from GI bleed, S/P PRBC x 2 this admit
GI bleed
-Colonoscopy performed patient with polypectomy also more friable, ulcerated and inflamed mucosa found in the distal area with associated superficial ulcer, -biopsy consistent with invasive squamous cell carcinoma
-Eliquis on hold. Port placement today. Monitor for recurrent bleeding.
- Hold heparin for procedure. Restart Eliquis if smf ehrn acceptable by GI/surg.
HFpEF, chronic
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
Mod mitral stenosis, peak/mean gradient 18/6mmHg
CKD3b
Type II DM
Subjective: s/p DARION/DCCV- now in sinus. Port placement for chemo
Physical Exam
Vital Signs/Labs
Vital Signs
Temp Pulse Resp BP Pulse Ox
97.6 F 72 18 104/55 96
11/30/23 04:18 11/30/23 04:18 11/30/23 04:18 11/30/23 04:18 11/30/23 04:18
11/29/23 11/30/23 12/01/23
06:59 06:59 06:59
Actual Weight 90.463 kg 87.203 kg
11/30/23 05:03
11/30/23 05:03
PT 18.4 Sec (11.4-14.6) H 11/22/23 08:42
INR 1.52 11/22/23 08:42
APTT 60.1 Sec (23.4-35.0) H 11/29/23 17:29
Magnesium 2.0 mg/dl (1.6-2.3) 11/25/23 07:58
Physical Exam
Constitutional: No acute distress and Comfortable
Cardiovascular: Rhythm & rate is regular and Systolic murmur present
Respiratory: Respiratory effort normal, Wheeze Absent and Crackles Absent
GI: Soft and Normal bowel sounds
Neuro/Psych: Alert, Oriented and AO x 3
Data Reviewed
-
Date of Service: November 30, 2023
Medical Decision Making: Reviewed Test Results
EKG: Tracing Personally Visualized and interpreted and Report Reviewed by me
Echo: Report Reviewed by me
Labs: Labs Reviewed by me
Old Records: Reviewed
[2023-11-30] MEDS: LASIX PO (08:25)
[2023-11-30] MEDS: JARDIANCE PO (08:25)
[2023-11-30] MEDS: GLUCOTROL XL (EXTENDED RELEASE) PO (08:25)
[2023-11-30] MEDS: NSS (PRESERVATIVE FREE) IV (08:25)
[2023-11-30] MEDS: MIRALAX PO (08:26)
[2023-11-30] MEDS: TOPROL XL PO ×2 (08:26→16:17)
[2023-11-30 08:31] LABS: Glucose - Point of Care 72 mg/dl (70-99)
--- NOTE | 2023-11-30 11:24 | W.IMMPOSTOP ---
Addendum entered and electronically signed by Gerry Bradford MD 11/30/23 11:37:
Patient's son, maxim Jackson.
Original Note:
Surgical Immed Post Op Note
-
Primary Surgeon: Elodia Bradford MD
Assisting Surgeon: none
Pre-op Diagnosis: anal cancer
Post-op Diagnosis: same
Procedure Performed: 1) flexible sigmoidoscopy 2) right subclavian port-a-cath placement.
Anesthesia Type: MAC plus local
Specimen / Cultures: none
Estimated Blood Loss: 25 cc
Complications: no immediate
Operative Findings: 50% circumferential posterior anorectal mass (non-obstructing)
Will get CXR.
[2023-11-30 11:30] LABS: Glucose - Point of Care 44 mg/dl (70-99)
[2023-11-30 11:57] LABS: Glucose - Point of Care 85 mg/dl (70-99)
[2023-11-30 12:07] LABS: Glucose 40 mg/dl (70-99)
--- NOTE | 2023-11-30 12:08 | PTCARENOTE ---
Post op accu-check 44, Blood draw results 40 patient was treated with50% Dextrose 12.5 gram I.V. Accu-check post 85 patient was asymptomatic
--- NOTE | 2023-11-30 12:46 | PN.DE.MGMTRT ---
Insulin Management
- -
11/30/2023: Diabetes Management Consult
73 year old female admitted on 11/21/23 w/ h/o rectal bleeding. EGD/colonoscopy on 11/23/23 showed mild gastritis, and copious amounts of formed stool in the rectum, with mild oozing. Repeat colonoscopy 11/24/23 showed friable, ulcerated and inflamed
mucosa in the distal rectum w/ ulcerated ulcer c/w Anal SCC.
PMH includes: PAF, Mitral stenosis, H/o CVA, HTN, HLD, H/o SDH/SAH, HFpEF, CKD Hypothyroid and T2DM, A1C 7.6%, states it was ~10% a yr ago, was taking Tresiba 26 units @ HS, Glipizide 10mg BID and Jardiance 25mg daily prior to admission. States she
was previously taking Metformin-->d/c'd ~a yr ago due to CKD, and was started on glipizide and Jardiance. Cr 1.8, eGFR 29.20
Pt seen in PACU s/p flexible sigmoidoscopy and right subclavian port-a-cath placement.
Pt is Awake, A/O x3, resting in bed, offers no complaints, able to participate in discussion regarding Diabetes.
States that she routinely follows with [facility], sees Dr. Nicholson. She has 2 glucose meters with enough supplies- OneTouch and [employer]
Current Diabetes regimen includes, Lantus 26 units- has been reduced to 18 units @ HS, glipizide 10mg BID and Jardiance 25mg -currently on hold.
Pt is noted for recurrently hypoglycemia, as low as 40 this AM. Last dose of Lantus was on 11/27, and glipizide 10mg last evening @ dinner time.
Pt has been NPO since [place] for procedure, states she is not hungry and does not have much of an appetite.
Will further reduce Lantus dose to 15 units @ HS. HOLD Lantus if pt does not eat her dinner tonight.
Reduce Glipizide from 10mg to 5mg BID, 1st dose in AM. Change diet from 2000 chloé to 1800 chloé diet.
Will closely follow and make further adjustments if needed
Diabetes History
- -
Type of Diabetes: 2 requiring insulin
Pre-Admission Diabetes Regimen
11/30/23
05:03
Creatinine 1.8 H
Lab Results
Hemoglobin A1c 7.6 % (4.0-5.6) H 11/21/23 16:26
Insulin Pump Settings
IP Diabetes Regimen
11/29/23 11/29/23 11/30/23
16:50 21:18 05:03
Glucose 40 L*
POC Glucose 81 164 H
11/30/23 11/30/23 11/30/23
05:44 06:21 08:29
Glucose
POC Glucose 50 L* 112 H 72
11/30/23 11/30/23 11/30/23
11:28 11:42 11:55
Glucose 40 L*
POC Glucose 44 L* 85
Meal type: Dinner
Meal type: Lunch
Meal type: Breakfast
Amount consumed: 100%
Amount consumed: 100%
Amount consumed: 100%
Patient Education
[2023-11-30 13:09] LABS: Glucose - Point of Care 78 mg/dl (70-99)
--- NOTE | 2023-11-30 15:43 | W.PN.HOSP.TC ---
Today's Communication/Plan
-
appreciate MIXER BLENDER recs for DM management
resume Eliquis this evening
repeat AM labs - if Cr rises further, will consider Renal eval
Assessment / Plan
Assessment / Plan
EGD Findings:
-Normal Esophagus
-Mild gastritis, biopsied.
-Normal duodenum, biopsies taken to r/o celiac disease
Colonoscopy Findings:
-3 mm polyp removed via cold snare polypectomy found in the ascending colon. Friable, ulcerated and inflamed mucosa found in the distal area with associated superficial ulcer, which bled easily upon contact, biopsies taken. Suspect stercoral
colitis/ulcer in setting of constipation vs. mucosal prolapse vs. malignancy vs. IBD.
Assessment:
Lower GI and rectal bleeding:
- exacerbated by Eliquis
- symptomatic microcytic acute blood loss anemia
- s/p 2 units pRBC. Hb stable at 9.1 today. Continue to trend
- Iron deficiency on labs - completed IV iron course
- Colonoscopy above. Biopsy revealed: invasive squamous cell carcinoma, well-differentiated
- Colorectal consulted. CT C/A/P without evidence of mets
- Medical oncology consulted - OP f/u to consider chemo/XRT
- s/p PORT placement 11/29
- continue Anusol suppositories daily
Persistent atrial fibrillation, h/o SSS s/p PPM
- cont BB
- s/p DARION/CV 11/26
- Amio load continues; at DC to Amio 200mg daily
- resume Eliquis tonight; cleared by CRS service
- follow Cards recs
Moderate R pleural effusion
- s/p thoracentesis 11/28; cytology pending
Chronic HFpEF: cont BB
CKD3b
- monitor BMP
Hypothyroidism: cont Levoxyl - continue LT4
Essential Hypertension: cont BB
Hyperlipidemia: cont statin
DM2: a1c 7.6%. Cont Lantus/SSI/accuchecks
- MIXER BLENDER managing
Reactive thrombocytosis in setting of bleeding
FULL/IV Heparin
Anticipated Discharge: 24 - 48 hours
Subjective/Interval History
-
Date of Service: November 30, 2023
seen s/p PORT placement
reports poor appetite and therefore sugar was low
Objective Data
-
Labs:
Laboratory Results
11/30/23 11/30/23
05:03 11:42
WBC 9.3
Hgb 9.1 L
Hct 29.7 L
Plt Count 237
Sodium 143
Potassium 4.2
Chloride 114 H
Carbon Dioxide 22
BUN 21 H
Creatinine 1.8 H
Glucose 40 L* 40 L*
Calcium 9.0
Vital Signs:
Vital Signs
Temp Pulse Resp BP Pulse Ox
98.4 F 75 20 92/52 95
11/30/23 15:35 11/30/23 15:35 11/30/23 15:35 11/30/23 15:35 11/30/23 15:35
I&O
11/29/23 11/30/23 12/01/23
06:59 06:59 06:59
Intake Total 2580 / 2580 1640 / 1640 200 / 200
Balance 2580 / 2580 1640 / 1640 200 / 200
Physical Exam
-
General: No Apparent Distress
HEENT: Normocephalic, Atraumatic and Other (PORT)
Respiratory: Negative Wheezes
Cardiac: Regular Rhythm and S1/S2
Genito-urinary: No Costovertebral Tender
Neuro: AO x 3
Psych: Calm
Data Reviewed
-
Total Time Spent with Patient (in minutes): 41
Labs: Labs Reviewed by me
[2023-11-30] MEDS: PACERONE PO (16:16)
[2023-11-30] MEDS: PACERONE 400 MG PO ×2 (16:21→22:17)
[2023-11-30] MEDS: FLOMAX 0.400000000000000022 MG PO (16:21)
[2023-11-30] MEDS: PROTONIX 40 MG PO (16:21)
[2023-11-30 17:20] LABS: Glucose - Point of Care 188 mg/dl (70-99)
[2023-11-30] MEDS: NOVOLOG FLEXPEN-LOW RESISTANCE 1 UNITS SC (17:40)
[2023-11-30 18:21] LABS: Urine Albumin Negative (Neg - Trace); Urine Bilirubin Negative (Negative); Urine Character Clear (Clear); Urine Color Yellow; Urine Glucose 2+ (Negative); Urine Ketone Negative (Negative); Urine Leukocyte 2+ (Negative); Urine Nitrite Negative (Negative); Urine Occult Blood 1+ (Negative); Urine Specific Gravity 1.005 (<1.030); Urine Urobilinogen Negative (Neg - 1+)
[2023-11-30 18:26] LABS: Urine Bacteria Moderate (Negative)
[2023-11-30 18:41] LABS: Urine Sodium 34 mmol/L (30-90)
[2023-11-30] MEDS: ELIQUIS 5 MG PO (20:10)
[2023-11-30] MEDS: TOPROL XL 25 MG PO (20:10)
[2023-11-30 21:26] LABS: Glucose - Point of Care 192 mg/dl (70-99)
[2023-11-30] MEDS: LIPITOR 40 MG PO (22:16)
[2023-11-30] MEDS: LANTUS 0.149999999999999994 UNITS SC (22:16)
[2023-11-30] MEDS: KCL 20 MEQ PO (22:17)
[2023-11-30] MEDS: ANUSOL HC RECTAL (22:21)
[2023-12-01] VITALS (8 sets, daily range): BP systolic 85–139; BP diastolic 49–76; PULSE 62–72; O2SAT 97–99; BMI 35.9
--- NOTE | 2023-12-01 02:53 | PTCARENOTE ---
pt has rec'vd education and encouraged to accept rectal hydrocortisone suppository. Pt verbalizes understanding however is expressing she will refuse if for tonight , she has been going through a lot and would like to not have diarrhea. Pt requires
further education as she is not comprehending the suppositories use. Will continue to educate and give support.
[2023-12-01] MEDS: SYNTHROID 125 MCG PO (05:46)
[2023-12-01 06:43] LABS: % Basophils 0.7 % (0-2); % Eosinophils 4.8 % (0-6); % Immature Granulocytes 0.4 % (0-0.5); % Lymphocytes 14.5 % (20.5-51.1); % Monocytes 6.4 % (1.7-9.3); % Neutrophils 73.2 % (42.2-75.2); Absolute Basophils 0.1 10^3/uL (0-0.2); Absolute Eosinophils 0.4 10^3/uL (0-0.7); Absolute Lymphocytes 1.2 10^3/uL (1.2-3.4); Absolute Monocytes 0.5 10^3/uL (0.1-0.6); Hematocrit 32.7 % (37.0-47.0); Hemoglobin 9.6 g/dL (12.0-16.0); Mean Corp Hgb Conc. 29.4 g/dL (33.0-37.0); Mean Corpuscular Hgb 26.3 pg (27.0-31.0); Mean Corpuscular Volume 89.6 fL (81.0-99.0); Mean Platelet Volume 10.8 fL (7.4-10.4); Nucleated Red Blood Cells % 0 %; Platelet Count 238 10^3/uL (130-400); Red Blood Cell Count 3.65 10^6/uL (4.20-5.40); Red Cell Dist. Width 21.2 % (11.5-14.5); White Blood Cell Count 8.1 10^3/uL (4.8-10.8)
[2023-12-01 07:17] LABS: Blood Urea Nitrogen 18 mg/dl (7-17); Calcium 9.1 mg/dl (8.4-10.2); Carbon Dioxide 20 mmol/L (22-30); Chloride 115 mmol/L (98-107); Estimated Creatinine Clearance 28 ml/min; Glucose 112 mg/dl (70-99); Potassium 4.9 mmol/L (3.5-5.1); Sodium 144 mmol/L (135-145)
[2023-12-01] MEDS: MIRALAX PO (07:35)
[2023-12-01] MEDS: NSS (PRESERVATIVE FREE) IV (07:36)
[2023-12-01] MEDS: GLUCOTROL XL (EXTENDED RELEASE) 5 MG PO (07:37)
[2023-12-01] MEDS: FLOMAX 0.400000000000000022 MG PO (07:37)
[2023-12-01] MEDS: TOPROL XL 25 MG PO ×2 (07:37→19:57)
[2023-12-01] MEDS: PACERONE 400 MG PO ×3 (07:37→21:59)
[2023-12-01] MEDS: PROTONIX 40 MG PO (07:38)
[2023-12-01] MEDS: ELIQUIS 5 MG PO ×2 (07:38→20:04)
[2023-12-01 07:47] LABS: Glucose - Point of Care 113 mg/dl (70-99)
[2023-12-01] MEDS: NOVOLOG FLEXPEN-LOW RESISTANCE SC (07:59)
--- NOTE | 2023-12-01 08:12 | PN.DE.MGMTRT ---
Insulin Management
- -
12/01/2023: Diabetes Management F/U:
73 year old female admitted on 11/21/23 w/ h/o rectal bleeding. EGD/colonoscopy on 11/23/23 showed mild gastritis, and copious amounts of formed stool in the rectum, with mild oozing. Repeat colonoscopy 11/24/23 showed friable, ulcerated and inflamed
mucosa in the distal rectum w/ ulcerated ulcer c/w Anal SCC.
PMH includes: PAF, Mitral stenosis, H/o CVA, HTN, HLD, H/o SDH/SAH, HFpEF, CKD Hypothyroid and T2DM, A1C 7.6%, states it was ~10% a yr ago, was taking Tresiba 26 units @ HS, Glipizide 10mg BID and Jardiance 25mg daily prior to admission. States she
was previously taking Metformin-->d/c'd ~a yr ago due to CKD, and was started on glipizide and Jardiance. Cr 1.8, eGFR 29.20
POD#1 s/p flexible sigmoidoscopy and right subclavian port-a-cath placement.
Pt is Awake, A/O x3, resting in bed, offers no complaints, able to participate in discussion regarding Diabetes.
Glucose improved with reduced dose of Lantus. FBG 112 (V) this AM and 113 prebreakfast.
Will make no changes to current regimen: Lantus 15 units @ HS and Glipizide 5mg BID, 1st dose this AM.
Jardiance remains on hold for eGFR<45. Will closely follow and resume Jardiance when renal fxn has improved and if needed
Diabetes History
- -
Type of Diabetes: 2 requiring insulin
Pre-Admission Diabetes Regimen
12/01/23
06:11
Creatinine 1.8 H
Lab Results
Hemoglobin A1c 7.6 % (4.0-5.6) H 11/21/23 16:26
Insulin Pump Settings
IP Diabetes Regimen
11/30/23 11/30/23 11/30/23
08:29 11:28 11:42
Glucose 40 L*
POC Glucose 72 44 L*
11/30/23 11/30/23 11/30/23
11:55 13:07 17:19
Glucose
POC Glucose 85 78 188 H
11/30/23 12/01/23 12/01/23
21:25 06:11 07:46
Glucose 112 H
POC Glucose 192 H 113 H
Patient Education
[2023-12-01] MEDS: STERILE WATER FOR INJECTION 10 ML IV (09:06)
[2023-12-01] MEDS: ROCEPHIN 1000 MG IV (09:06)
[2023-12-01] MEDS: SODIUM BICARBONATE 1150 MEQ IV (09:08)
--- NOTE | 2023-12-01 09:51 | W.PN.CRS1 ---
Today's Communication / Plan
-
discontinue dressing tomorrow
okay for blood thinners
f/u with oncology
will s/o
Assessment/Plan
-
POD#1 insertion of port-a-cath placement in the setting of anal cancer
1. Dressing for cath can be removed tomorrow.
2. Eliquis has been resumed. Okay to start heparin gtt today if needed.
3. OOB as tolerated.
4. No plans for further surgery at this time.
5. She will need follow up with hematology oncology and radiation.
6. Follow up with Dr. Bradford after her treatments with oncology. Will sign off, please contact if further issues arise.
Subjective Data
Subjective Data
Date of Service: December 01, 2023
Patient states she has no complaints. She is sore from the area of infusaport insertion yesterday.
Objective Data
-
Vital Signs
Temp Pulse Resp BP Pulse Ox
98.5 F 70 12 139/76 97
12/01/23 07:54 12/01/23 07:54 12/01/23 07:54 12/01/23 07:54 12/01/23 07:54
Intake & Output
11/30/23 12/01/23 12/02/23
06:59 06:59 06:59
Intake Total 1640 / 1640 1160 / 1160
Balance 1640 / 1640 1160 / 1160
Intake:
Oral fluids 1580 / 1580 960 / 960
IV fluids (Total) 200 / 200
Normosol 200 / 200
IV piggybacks 60 / 60
Other:
Number of approximated MODERATE 1 2
amounts of urine
Number of approximated LARGE 1
amounts of urine
Lab Results
12/01/23 06:11
12/01/23 06:11
Physical Exam
-
General: No Acute Distress and AOx3
Abdomen: Soft, Non Distended and Non Tender
Wound: Dressing in Place
--- NOTE | 2023-12-01 11:47 | W.PN.HOSP.TC ---
Today's Communication/Plan
-
Rocephin for UTI pending cultures
bicarbonate IVF to help improve OSMANY; hold Lasix
repeat PT/OT
Assessment / Plan
Assessment / Plan
EGD Findings:
-Normal Esophagus
-Mild gastritis, biopsied.
-Normal duodenum, biopsies taken to r/o celiac disease
Colonoscopy Findings:
-3 mm polyp removed via cold snare polypectomy found in the ascending colon. Friable, ulcerated and inflamed mucosa found in the distal area with associated superficial ulcer, which bled easily upon contact, biopsies taken. Suspect stercoral
colitis/ulcer in setting of constipation vs. mucosal prolapse vs. malignancy vs. IBD.
Assessment:
Lower GI and rectal bleeding:
- exacerbated by Eliquis
- symptomatic microcytic acute blood loss anemia
- s/p 2 units pRBC. Hb stable at 9.6 today. Continue to trend
- Iron deficiency on labs - completed IV iron course
- Colonoscopy above. Biopsy revealed: invasive squamous cell carcinoma, well-differentiated
- Colorectal consulted. CT C/A/P without evidence of mets
- Medical oncology consulted - OP f/u to consider chemo/XRT
- s/p PORT placement 11/29; dressing to be removed Monday. Outpatient Colorectal follow up
- continue Anusol suppositories daily
Persistent atrial fibrillation, h/o SSS s/p PPM
- cont BB; Dilt stopped
- s/p DARION/CV 11/26
- Amio load continues; at DC decrease Amio to 200mg daily
- Continue Eliquis
- Cards signed off
Moderate R pleural effusion
- s/p thoracentesis 11/28; cytology pending
Chronic HFpEF
- cont BB
- hold Lasix
OSMANY on CKD3b with metabolic acidosis
- suspect relatively dry in setting of multiple procedures, bowel prep, bleeding
- FENA pre-renal
- hold Lasix; give 1 bag bicarbonate fluids
- monitor BMP
UTI
- start Rocephin, day 1 - await culture
Hypothyroidism: cont Levoxyl - continue LT4
Essential Hypertension: cont BB
Hyperlipidemia: cont statin
DM2: a1c 7.6%. Cont Lantus + glipizide/SSI/accu-checks
- holding Jardiance
- STILL WORKER HELPER managing
Reactive thrombocytosis in setting of bleeding
DVT ppx: Eliquis
Code: Full
Anticipated Discharge: 24 - 48 hours
Subjective/Interval History
-
Date of Service: December 01, 2023
found to have UTI - Abx started
denies any new complaints
Objective Data
-
Labs:
Laboratory Results
12/01/23
06:11
WBC 8.1
Hgb 9.6 L
Hct 32.7 L
Plt Count 238
Sodium 144
Potassium 4.9
Chloride 115 H
Carbon Dioxide 20 L
BUN 18 H
Creatinine 1.8 H
Glucose 112 H
Calcium 9.1
Vital Signs:
Vital Signs
Temp Pulse Resp BP Pulse Ox
98.2 F 62 14 113/49 100
12/01/23 11:13 12/01/23 11:13 12/01/23 11:13 12/01/23 11:13 12/01/23 11:13
I&O
11/30/23 12/01/23 12/02/23
06:59 06:59 06:59
Intake Total 1640 / 1640 1160 / 1160
Balance 1640 / 1640 1160 / 1160
Physical Exam
-
General: No Apparent Distress
HEENT: Normocephalic and Atraumatic
Respiratory: Negative Wheezes
Cardiac: Regular Rhythm
GI: Soft
Genito-urinary: No Costovertebral Tender
Musculoskeletal: No Edema
Neuro: AO x 3
Psych: Calm
Data Reviewed
-
Total Time Spent with Patient (in minutes): 42
Labs: Labs Reviewed by me
[2023-12-01 12:19] LABS: Glucose - Point of Care 176 mg/dl (70-99)
--- NOTE | 2023-12-01 12:27 | W.PN.ONC ---
Addendum entered and electronically signed by Odilia Bernard MD 12/01/23 16:40:
Agree w/ A&P as below
Likely d/c in next day or two
Will arrange med onc office f/u
I've reached out to rad onc asking that they arrange outpatient consultation as well, to plan chemo/RT
Original Note:
Today's Communication / Plan
-
11/30 Hgb 9.6, Hct 32.7, PLT 238
s/p 2units PRBCs
Monitor CBC with diff daily
Transfuse as needed to maintain Hgb >[address] scans show no evidence of metastatic disease in the chest/abdomen/pelvis
11/29 Port-a-cath placed successfully
Resumption of Eliquis per Cardiology
Monitor for bleeding
Urine culture in progress: Gram negative bacilli
B12/folate repletion
Continue PT/OT
Supportive care
Definitive treatment plans typically include combination chemoradiation to be set up as an outpatient.
Radiation Oncology to get involved upon discharge. Await final pathology from pleural fluid.
[place] office has been notified of patient to begin coordinating care. Our card was provided.
Impression
Impression
Anal squamous cell carcinoma
Lower GI bleed on Eliquis
Symptomatic blood loss anemia
Iron deficiency anemia s/p IV iron
Atrial fibrillation s/p cardioversion this admission
Acute urinary tract infection
Right pleural effusion s/p thoracentesis
Gastritis on EGD
Acute kidney injury
Subjective/Objective
Subjective/Objective
patient is resting in bed. she notes skin irritation from silk tape covering former PICC site. Right chest wall port site is covered. she denies pain.
Vital Signs:
Vital Signs
Temp Pulse Resp BP Pulse Ox
98.2 F 62 14 113/49 100
12/01/23 11:13 12/01/23 11:13 12/01/23 11:13 12/01/23 11:13 12/01/23 11:13
physical exam:
aaox3, calm/cooperative
HRR, lungs clear/diminished on RA
scattered erythema/ecchymosis bilateral arms
dressings in place
Lab Results:
Laboratory Data
WBC 8.1 10^3/uL (4.8-10.8) 12/01/23 06:11
Hgb 9.6 g/dL (12.0-16.0) L 12/01/23 06:11
Plt Count 238 10^3/uL (130-400) 12/01/23 06:11
PT 18.4 Sec (11.4-14.6) H 11/22/23 08:42
INR 1.52 11/22/23 08:42
APTT 60.1 Sec (23.4-35.0) H 11/29/23 17:29
eGFR 29.20 12/01/23 06:11
11/28/23 CT c/a/p: No CT evidence for metastatic disease in the chest, abdomen, or pelvis. Soft tissue mass at the level of the anus measuring up to 5.2 cm compatible with the provided history of anal carcinoma. Moderate right and small left pleural
effusions. Additional chronic findings are stable, as detailed above.
11/29/23 Thoracentesis: Successful ultrasound-guided thoracentesis, yielding 700 cc of clear yellow pleural fluid.
11/24/23 Pathology:
A. Rectum, �ulcer�, cold forceps biopsy:
Invasive squamous cell carcinoma, well-differentiated.
CMV immunostain is negative.
B. Colon, ascending, polyp, cold snare polypectomy:
Inflammatory-type polyp with hyperplastic change
[2023-12-01] MEDS: NOVOLOG FLEXPEN-LOW RESISTANCE 1 UNITS SC ×2 (12:42→17:59)
[2023-12-01] MEDS: FOLVITE 1 MG PO (15:38)
[2023-12-01] MEDS: VITAMIN B-12 1000 MCG PO (15:39)
--- NOTE | 2023-12-01 15:47 | PTOTSP ---
pt currently demonstrates ability to complete simple ADLs, functional transfers, ambulation with supervision to no assistance. pt tolerated standing at sink, reports going to bathroom without difficulty. no acute OT needs identified, will sign off.
--- NOTE | 2023-12-01 16:00 | CM ---
Reviewed the chart notes and spoke with the patient at the bedside. IMM signed and placed on the chart. The patient anticipates being discharged to home with no anticipated needs when medically stable. CM continues to be available to
patient/family and is monitoring medical plan for needs at discharge.
Plan: Discharge to home when medically stable.
[2023-12-01] MEDS: GLUCOTROL 5 MG PO (17:22)
[2023-12-01 17:40] LABS: Glucose - Point of Care 173 mg/dl (70-99)
[2023-12-01 21:58] LABS: Glucose - Point of Care 206 mg/dl (70-99)
[2023-12-01] MEDS: KCL 20 MEQ PO (21:59)
[2023-12-01] MEDS: LANTUS 0.149999999999999994 UNITS SC (21:59)
[2023-12-01] MEDS: ANUSOL HC RECTAL (21:59)
[2023-12-01] MEDS: LIPITOR 40 MG PO (22:00)
[2023-12-02 03:50] VITALS: BP 117/64
[2023-12-02] MEDS: SYNTHROID 125 MCG PO (05:39)
[2023-12-02 06:00] VITALS: BMI 36.6
[2023-12-02 07:36] LABS: Glucose - Point of Care 55 mg/dl (70-99)
[2023-12-02] MEDS: NOVOLOG FLEXPEN-LOW RESISTANCE SC ×3 (07:43→17:20)
[2023-12-02 07:45] VITALS: BP 116/60
[2023-12-02 07:54] LABS: Glucose - Point of Care 78 mg/dl (70-99)
[2023-12-02] MEDS: PACERONE 400 MG PO ×3 (07:55→21:23)
[2023-12-02] MEDS: PROTONIX 40 MG PO (07:55)
[2023-12-02] MEDS: VITAMIN B-12 1000 MCG PO (07:55)
[2023-12-02] MEDS: ELIQUIS 5 MG PO ×2 (07:55→20:36)
[2023-12-02] MEDS: TOPROL XL 25 MG PO ×2 (07:56→20:35)
[2023-12-02] MEDS: FLOMAX 0.400000000000000022 MG PO (07:56)
[2023-12-02] MEDS: FOLVITE 1 MG PO (07:56)
[2023-12-02 07:57] LABS: % Basophils 0.6 % (0-2); % Eosinophils 5.9 % (0-6); % Immature Granulocytes 0.2 % (0-0.5); % Lymphocytes 16.3 % (20.5-51.1); % Monocytes 6.3 % (1.7-9.3); % Neutrophils 70.7 % (42.2-75.2); Absolute Basophils 0.1 10^3/uL (0-0.2); Absolute Eosinophils 0.5 10^3/uL (0-0.7); Absolute Lymphocytes 1.3 10^3/uL (1.2-3.4); Absolute Monocytes 0.5 10^3/uL (0.1-0.6); Absolute Neutrophils 5.8 10^3/uL (1.4-6.5); Hematocrit 29.8 % (37.0-47.0); Hemoglobin 9.1 g/dL (12.0-16.0); Mean Corp Hgb Conc. 30.5 g/dL (33.0-37.0); Mean Corpuscular Hgb 26.3 pg (27.0-31.0); Mean Corpuscular Volume 86.1 fL (81.0-99.0); Mean Platelet Volume 10.8 fL (7.4-10.4); Nucleated Red Blood Cells % 0 %; Platelet Count 203 10^3/uL (130-400); Red Blood Cell Count 3.46 10^6/uL (4.20-5.40); Red Cell Dist. Width 20.8 % (11.5-14.5); White Blood Cell Count 8.2 10^3/uL (4.8-10.8)
[2023-12-02] MEDS: ROCEPHIN 1000 MG IV (07:57)
[2023-12-02] MEDS: MIRALAX PO (07:57)
[2023-12-02] MEDS: STERILE WATER FOR INJECTION 10 ML IV (07:57)
[2023-12-02] MEDS: NSS (PRESERVATIVE FREE) IV (08:02)
[2023-12-02] MEDS: GLUCOTROL PO (08:15)
[2023-12-02 08:56] LABS: Blood Urea Nitrogen 20 mg/dl (7-17); Calcium 8.7 mg/dl (8.4-10.2); Carbon Dioxide 24 mmol/L (22-30); Chloride 108 mmol/L (98-107); Estimated Creatinine Clearance 32 ml/min; Glucose 50 mg/dl (70-99); Potassium 4.6 mmol/L (3.5-5.1); Sodium 137 mmol/L (135-145); eGFR 33.63
[2023-12-02 10:04] LABS: Glucose - Point of Care 181 mg/dl (70-99)
--- NOTE | 2023-12-02 11:36 | W.PN.HOSP.TC ---
Today's Communication/Plan
-
Continue with empirical antibiotic pending culture data
Hold glipizide.
DC planning
Assessment / Plan
Assessment / Plan
EGD Findings:
-Normal Esophagus
-Mild gastritis, biopsied.
-Normal duodenum, biopsies taken to r/o celiac disease
Colonoscopy Findings:
-3 mm polyp removed via cold snare polypectomy found in the ascending colon. Friable, ulcerated and inflamed mucosa found in the distal area with associated superficial ulcer, which bled easily upon contact, biopsies taken. Suspect stercoral
colitis/ulcer in setting of constipation vs. mucosal prolapse vs. malignancy vs. IBD.
Assessment:
Lower GI and rectal bleeding:
- exacerbated by Eliquis
- symptomatic microcytic acute blood loss anemia
- s/p 2 units pRBC. Hb stable at 9.1 today. Continue to trend
- Iron deficiency on labs - completed IV iron course
- Colonoscopy above. Biopsy revealed: invasive squamous cell carcinoma, well-differentiated
- Colorectal consulted. CT C/A/P without evidence of mets
- Medical oncology consulted - OP f/u to consider chemo/XRT
- s/p PORT placement 11/29; dressing removed . Outpatient Colorectal follow up
- continue Anusol suppositories daily
Persistent atrial fibrillation, h/o SSS s/p PPM
- cont BB; Dilt stopped
- s/p DARION/CV 11/26
- Amio load continues; at DC decrease Amio to 200mg daily
- Continue Eliquis
- Cards signed off
Moderate R pleural effusion
- s/p thoracentesis 11/28; cytology pending
Chronic HFpEF
- cont BB
- hold Lasix
OSMANY on CKD3b with metabolic acidosis
- suspect relatively dry in setting of multiple procedures, bowel prep, bleeding
- FENA pre-renal
- hold Lasix; given 1 bag bicarbonate fluids
- monitor BMP
UTI
- start Rocephin, day 1 - await culture
Hypothyroidism: cont Levoxyl - continue LT4
Essential Hypertension: cont BB
Hyperlipidemia: cont statin
DM2: a1c 7.6%. on Lantus + glipizide/SSI/accu-checks
- Hypoglycemia noted - would hold sulfonylureas going forward.
- holding Jardiance
- MANAGER SUSTAINABILITY managing
Reactive thrombocytosis in setting of bleeding
DVT ppx: Eliquis
Code: Full
Anticipated Discharge: 24 - 48 hours
Subjective/Interval History
-
Date of Service: December 02, 2023
Tolerating diet okay.
Objective Data
-
Labs:
Laboratory Results
12/02/23 12/02/23
07:13 07:14
WBC 8.2
Hgb 9.1 L
Hct 29.8 L
Plt Count 203
Sodium 137
Potassium 4.6
Chloride 108 H
Carbon Dioxide 24
BUN 20 H
Creatinine 1.6 H
Glucose 50 L*
Calcium 8.7
Vital Signs:
Vital Signs
Temp Pulse Resp BP Pulse Ox
98.2 F 61 16 116/60 98
12/02/23 07:45 12/02/23 07:55 12/02/23 07:45 12/02/23 07:55 12/02/23 08:00
I&O
12/01/23 12/02/23 12/03/23
06:59 06:59 06:59
Intake Total 1160 / 1160 3060 / 3060
Balance 1160 / 1160 3060 / 3060
Review of Systems
-
Constitutional: Denies Fever
EENT: Denies Sore Throat
Respiratory: Denies Cough or Trouble Breathing
Cardiac: Denies Chest Pain
Abdomen/GI: Denies Abdominal Pain, Nausea or Vomiting
Genitourinary: Denies Dysuria or Frequency
Neuro: Denies Dizzy
Physical Exam
-
General: No Apparent Distress and Appears in Distress
HEENT: Normocephalic
Cardiac: Regular Rhythm and S1/S2; Negative Tachycardic
GI: Soft and Nontender
Neuro: AO x 3
Data Reviewed
-
Labs: Labs Reviewed by me
[2023-12-02 11:47] VITALS: BP 111/61
[2023-12-02 12:10] LABS: Glucose - Point of Care 127 mg/dl (70-99)
[2023-12-02 15:07] VITALS: BP 126/71
[2023-12-02 17:14] LABS: Glucose - Point of Care 120 mg/dl (70-99)
[2023-12-02 19:18] VITALS: BP 128/53
[2023-12-02 21:16] LABS: Glucose - Point of Care 194 mg/dl (70-99)
[2023-12-02] MEDS: LIPITOR 40 MG PO (21:34)
[2023-12-02] MEDS: KCL 20 MEQ PO (21:34)
[2023-12-02] MEDS: LANTUS 0.149999999999999994 UNITS SC (21:35)
[2023-12-02] MEDS: ANUSOL HC 25 MG RECTAL (21:36)
[2023-12-02 23:16] VITALS: BP 135/62
[2023-12-03] VITALS (7 sets, daily range): BP systolic 119–146; BP diastolic 60–76
[2023-12-03 04:46] LABS: Glucose - Point of Care 112 mg/dl (70-99)
[2023-12-03] MEDS: SYNTHROID 125 MCG PO (05:14)
[2023-12-03 07:06] LABS: Hematocrit 29.6 % (37.0-47.0); Hemoglobin 9.3 g/dL (12.0-16.0); Mean Corp Hgb Conc. 31.4 g/dL (33.0-37.0); Mean Corpuscular Hgb 26.3 pg (27.0-31.0); Mean Corpuscular Volume 83.9 fL (81.0-99.0); Mean Platelet Volume 11.3 fL (7.4-10.4); Platelet Count 198 10^3/uL (130-400); Red Blood Cell Count 3.53 10^6/uL (4.20-5.40); Red Cell Dist. Width 20.7 % (11.5-14.5); White Blood Cell Count 7.6 10^3/uL (4.8-10.8)
[2023-12-03 07:45] LABS: Glucose - Point of Care 94 mg/dl (70-99)
[2023-12-03] MEDS: NOVOLOG FLEXPEN-LOW RESISTANCE SC ×2 (08:13→12:14)
[2023-12-03] MEDS: FLOMAX 0.400000000000000022 MG PO (08:14)
[2023-12-03] MEDS: TOPROL XL 25 MG PO ×2 (08:14→20:40)
[2023-12-03] MEDS: FOLVITE 1 MG PO (08:14)
[2023-12-03] MEDS: PROTONIX 40 MG PO (08:14)
[2023-12-03] MEDS: ELIQUIS 5 MG PO ×2 (08:14→20:40)
[2023-12-03] MEDS: VITAMIN B-12 1000 MCG PO (08:14)
[2023-12-03] MEDS: PACERONE 400 MG PO ×3 (08:14→22:09)
[2023-12-03] MEDS: ROCEPHIN 1000 MG IV (08:15)
[2023-12-03] MEDS: NSS (PRESERVATIVE FREE) IV (08:15)
[2023-12-03] MEDS: STERILE WATER FOR INJECTION 10 ML IV (08:15)
[2023-12-03] MEDS: MIRALAX PO (08:19)
[2023-12-03 12:13] LABS: Glucose - Point of Care 137 mg/dl (70-99)
--- NOTE | 2023-12-03 14:12 | CON.ID ---
Consultation
-
Date/Time Consultation Requested: December 03, 2023 1053
Date/Time Consultation Performed: December 03, 2023 1410
Requesting Provider: Dr. Ismael Dodson
Performing Provider: Dr. Juana Hartmann
Reason for Consultation: ESBL in urine
Chief Complaint / Past History
Chief Complaint
Rectal bleeding
History of Present Illness
History obtained from review of medical records as well as from the patient. She is a 73-year-old female with atrial fibrillation, diabetes mellitus, CKD 3B who presented to the hospital on November 19 with bright red blood per rectum. She underwent
colonoscopy noted to have rectal ulcer which was biopsied and resulted as invasive squamous cell carcinoma. Patient in permanent atrial fibrillation status post DARION and cardioversion. Noted to have small pleural effusion status post thoracentesis
with negative infection. November 29 she underwent port placement, flex sig noted to have nonobstructing 50% circumferential anorectal mass. November 29 patient's creatinine noted to be have increased. Urine analysis reflex to urine culture obtained.
Patient was started on ceftriaxone for possible UTI. The culture came back as 60,000 CFU ESBL E. coli. Today patient reports she is not sure why the urine culture was obtained. She has no urinary symptoms of dysuria, urinary urgency, or
frequency. No flank pain. She feels well overall.
Past History
Additional Past Medical History:
Diabetes mellitus
Hypertension
Hypothyroidism
Dyslipidemia
Atrial fibrillation
Pacemaker placement
Heart failure with preserved EF
CKD3b
hx CVA
Tubal ligation
Allergy History:
sulfamethoxazole [From Bactrim] Allergy (Verified 11/20/23 18:43)
hypotension
trimethoprim [From Bactrim] Allergy (Verified 11/20/23 18:43)
hypotension
Medications Reviewed: Yes
Current Antibiotics:
Ceftriaxone d3
Social History
Tobacco: Non-Smoker
Alcohol: None
Drug: None
Personal:
Family History
Family History: Not Pertinent
Review of Systems
Review of Systems
General: Negative Fever, Chills or Change in Appetite
HEENT: Negative Sinus Problems or Headache
Respiratory: Negative Dyspnea or Cough
Gasteroenterology: Negative Nausea or Vomiting
Genital / Urological: Negative Dysuria or Flank Pain
Endocrine: Negative Weakness
Skin / Hair / Nails: Negative Rash
Neurological: Negative Headache or Dizziness
All systems: All other systems were reviewed and were negative
Vital Signs
Temp Pulse Resp BP Pulse Ox
97.6 F 61 16 124/60 95
12/03/23 11:21 12/03/23 11:21 12/03/23 11:21 12/03/23 11:21 12/03/23 11:21
Physical Exam
Physical Exam
Constitutional: No Acute Distress and Comfortable
Eyes: Negative No Conjunctival Hemorrhage
Cardiovascular: Regular Rate and S1/S2
Pulmonary: Clear
Gastrointestinal: Soft, Non Tender and Non Distended
Genito-Urinary: Negative Suprapubic Tenderness or CVA Tenderness
Extremities: Negative Edema
Neurological: AO x 3
Lines: Port (RCW steristrip in place)
Lab / Diagnostic Study Results
12/03/23 06:17
12/02/23 07:14
Abs Immat Gran (auto) 0.0 10^3/uL (0-0.05) 12/02/23 07:13
Absolute Neuts (auto) 5.8 10^3/uL (1.4-6.5) 12/02/23 07:13
Absolute Lymphs (auto) 1.3 10^3/uL (1.2-3.4) 12/02/23 07:13
Absolute Monos (auto) 0.5 10^3/uL (0.1-0.6) 12/02/23 07:13
Absolute Basos (auto) 0.1 10^3/uL (0-0.2) 12/02/23 07:13
Immature Gran % 0.2 % (0-0.5) 12/02/23 07:13
Neutrophils % 70.7 % (42.2-75.2) 12/02/23 07:13
Lymphocytes % 16.3 % (20.5-51.1) L 12/02/23 07:13
Monocytes % 6.3 % (1.7-9.3) 12/02/23 07:13
Eosinophils % 5.9 % (0-6) 12/02/23 07:13
Basophils % 0.6 % (0-2) 12/02/23 07:13
PT 18.4 Sec (11.4-14.6) H 11/22/23 08:42
INR 1.52 11/22/23 08:42
Ur Squamous Epith Cells 11-15 /LPF (Few) 11/30/23 18:12
Microbiology Results
Micro:
11/30/23 18:12 Urine Culture - Final
Urine Escherichia coli - ESBL
11/29/23 10:23 Body Fluid Culture - Final
Pleural Fluid No Growth After 72 Hours
Gram Stain - Final
11/29/23 10:19 Acid Fast Bacilli Smear - Preliminary
Pleural Fluid Acid Fast Bacilli Culture - Preliminary
11/29/23 10:19 Fungal Smear - Final
Pleural Fluid No yeast or fungal elements seen.
Fungal Culture - Preliminary
Culture in progress.
Positive cultures are reported as soon as detected.
Final report to follow in four to five weeks.
11/28/23 CT a/p: No CT evidence for metastatic disease in the chest, abdomen, or pelvis. Soft tissue mass at the level of the anus measuring up to 5.2 cm compatible with the provided history of anal carcinoma. Moderate right and small left pleural
effusions.
Assessment / Plan
# Asymptomatic ESBL-Ecoli bacteruria
- no indication for abx.
-DC ceftriaxone
# OSMANY on CKD3 improving
# New dx of anorectal cancer.
ID will sign off.
Care Review
Plan reviewed with: Physician (Dr. Dodson)
--- NOTE | 2023-12-03 15:12 | W.PN.HOSP.TC ---
Today's Communication/Plan
-
Consult ID
DC planning
Assessment / Plan
Assessment / Plan
EGD Findings:
-Normal Esophagus
-Mild gastritis, biopsied.
-Normal duodenum, biopsies taken to r/o celiac disease
Colonoscopy Findings:
-3 mm polyp removed via cold snare polypectomy found in the ascending colon. Friable, ulcerated and inflamed mucosa found in the distal area with associated superficial ulcer, which bled easily upon contact, biopsies taken. Suspect stercoral
colitis/ulcer in setting of constipation vs. mucosal prolapse vs. malignancy vs. IBD.
Assessment:
Lower GI and rectal bleeding:
- exacerbated by Eliquis
- symptomatic microcytic acute blood loss anemia
- s/p 2 units pRBC. Hb stable at 9.3 today.
- Iron deficiency on labs - completed IV iron course
- Colonoscopy above. Biopsy revealed: invasive squamous cell carcinoma, well-differentiated
- Colorectal consulted. CT C/A/P without evidence of mets
- Medical oncology consulted - OP f/u to consider chemo/XRT
- s/p PORT placement 11/29; dressing removed . Outpatient Colorectal follow up
- continue Anusol suppositories daily
Persistent atrial fibrillation, h/o SSS s/p PPM
- cont BB; Dilt stopped
- s/p DARION/CV 11/26
- Amio load continues; at DC decrease Amio to 200mg daily
- Continue Eliquis
- Cards signed off
Moderate R pleural effusion
- s/p thoracentesis 11/28; cytology pending
Chronic HFpEF
- cont BB
- hold Lasix
OSMANY on CKD3b with metabolic acidosis
- suspect relatively dry in setting of multiple procedures, bowel prep, bleeding
- FENA pre-renal
- hold Lasix; given 1 bag bicarbonate fluids
- monitor BMP
Possible UTI
- UA with squamous cells, pt asymptomatic.
- UCX ESBL Ecoli
- suspect contamination -consult ID
Hypothyroidism: cont Levoxyl - continue LT4
Essential Hypertension: cont BB
Hyperlipidemia: cont statin
DM2: a1c 7.6%. on Lantus + glipizide/SSI/accu-checks
- Hypoglycemia noted - would hold sulfonylureas going forward.
- holding Jardiance
- APPLICATION SERVICES MANAGER managing
Reactive thrombocytosis in setting of bleeding
DVT ppx: Eliquis
Code: Full
Anticipated Discharge: Within 24 hours
Subjective/Interval History
-
Date of Service: December 03, 2023
Feels ok
Urinated 3 times today so far . Her frequency is from lasix she thinks.No dyuria or change in urine habits.
Objective Data
-
Labs:
Laboratory Results
12/03/23
06:17
WBC 7.6
Hgb 9.3 L
Hct 29.6 L
Plt Count 198
Vital Signs:
Vital Signs
Temp Pulse Resp BP Pulse Ox
97.6 F 61 16 124/60 95
12/03/23 11:21 12/03/23 11:21 12/03/23 11:21 12/03/23 11:21 12/03/23 11:21
I&O
12/02/23 12/03/23 12/04/23
06:59 06:59 06:59
Intake Total 3060 / 3060 1300 / 1300 1200 / 1200
Balance 3060 / 3060 1300 / 1300 1200 / 1200
Review of Systems
-
Respiratory: Denies Trouble Breathing
Cardiac: Denies Chest Pain
Abdomen/GI: Denies Abdominal Pain, Nausea or Vomiting
Neuro: Denies Dizzy
Physical Exam
-
General: No Apparent Distress
HEENT: Moist Mucous Membranes
Respiratory: Clear to Auscultation
Cardiac: Regular Rhythm and S1/S2
Neuro: AO x 3
Data Reviewed
-
Labs: Labs Reviewed by me
--- NOTE | 2023-12-03 16:23 | PTCARENOTE ---
Received patient as transfer from [address] [place] [address] into room 2128. Patient AAOx3, VSS, ambulatory in room, NSR on pvc monitor. Patient oriented to room and call chaves, states no complaints at this time.
[2023-12-03 16:52] LABS: Glucose - Point of Care 228 mg/dl (70-99)
[2023-12-03] MEDS: NOVOLOG FLEXPEN-LOW RESISTANCE 2 UNITS SC (17:48)
[2023-12-03] MEDS: TYLENOL 650 MG PO (20:39)
[2023-12-03] MEDS: LIPITOR 40 MG PO (20:40)
[2023-12-03 21:49] LABS: Glucose - Point of Care 196 mg/dl (70-99)
[2023-12-03] MEDS: LANTUS 0.149999999999999994 UNITS SC (22:09)
[2023-12-03] MEDS: KCL 20 MEQ PO (22:09)
[2023-12-03] MEDS: ANUSOL HC RECTAL (22:12)
[2023-12-04 03:27] VITALS: BP 143/70
[2023-12-04 06:00] VITALS: BMI 36.8
[2023-12-04] MEDS: SYNTHROID 125 MCG PO (06:44)
[2023-12-04 08:01] LABS: Glucose - Point of Care 106 mg/dl (70-99)
[2023-12-04 08:10] VITALS: BP 146/76
[2023-12-04] MEDS: NOVOLOG FLEXPEN-LOW RESISTANCE SC (08:36)
[2023-12-04] MEDS: PROTONIX 40 MG PO (08:36)
[2023-12-04] MEDS: PACERONE 400 MG PO ×2 (08:37→17:54)
[2023-12-04] MEDS: NSS (PRESERVATIVE FREE) IV (08:38)
[2023-12-04] MEDS: ELIQUIS 5 MG PO (08:39)
[2023-12-04] MEDS: FOLVITE 1 MG PO (08:39)
[2023-12-04] MEDS: FLOMAX 0.400000000000000022 MG PO (08:39)
[2023-12-04] MEDS: TOPROL XL 25 MG PO (08:39)
[2023-12-04] MEDS: VITAMIN B-12 1000 MCG PO (08:39)
--- NOTE | 2023-12-04 08:41 | PN.DE.MGMTRT ---
Insulin Management
- -
12/04/2023: Diabetes Management F/U:
73 year old female admitted on 11/21/23 w/ h/o rectal bleeding. EGD/colonoscopy on 11/23/23 showed mild gastritis, and copious amounts of formed stool in the rectum, with mild oozing. Repeat colonoscopy 11/24/23 showed friable, ulcerated and inflamed
mucosa in the distal rectum w/ ulcerated ulcer c/w Anal SCC.
PMH includes: PAF, Mitral stenosis, H/o CVA, HTN, HLD, H/o SDH/SAH, HFpEF, CKD Hypothyroid and T2DM, A1C 7.6%, states it was ~10% a yr ago, was taking Tresiba 26 units @ HS, Glipizide 10mg BID and Jardiance 25mg daily prior to admission. States she
was previously taking Metformin-->d/c'd ~a yr ago due to CKD, and was started on glipizide and Jardiance. Cr 1.8, eGFR 29.20
POD#4 s/p flexible sigmoidoscopy and right subclavian port-a-cath placement.
Pt is Awake, A/O x3, resting in bed, offers no complaints, able to participate in discussion regarding Diabetes.
States her appetite is poor and she is not eating as much.
Glipizide was d/c'd on 12/01 due to hypoglycemia. Glucose has remained stable w/o recurrent hypoglycemic episodes.
Pre-dinner glucose 228, received 2 units of corrective insulin, FBG 106 this AM.
Will make no changes to current regimen: Lantus 15 units @ HS.
Instructed pt to closely monitor her blood sugars and resume Glipizide 5mg once a day in AM if her BG is >150 before lunch and dinner.
Pt will follow up with her PCP to determine when to resume Jardiance-remains on hold for eGFR<45.
Diabetes History
- -
Type of Diabetes: 2 requiring insulin
Pre-Admission Diabetes Regimen
Lab Results
Hemoglobin A1c 7.6 % (4.0-5.6) H 11/21/23 16:26
Insulin Pump Settings
IP Diabetes Regimen
12/03/23 12/03/23 12/03/23
12:12 16:50 21:48
POC Glucose 137 H 228 H 196 H
12/04/23
07:59
POC Glucose 106 H
Meal type: Breakfast
Amount consumed: 100%
Patient Education
[2023-12-04] MEDS: MIRALAX 17 GRAMS PO (08:43)
--- NOTE | 2023-12-04 09:13 | W.PN.ONC ---
Today's Communication / Plan
-
12/03 Hgb 9.3, Hct 29.6, PLT 198
s/p 2units PRBCs
Monitor CBC w/ diff daily
Transfuse as needed to maintain Hgb >7, PLT>20
Eliquis resumed per Cardiology - monitor for bleeding
IV iron completed
Right chest wall port placed successfully
Right pleural fluid cytology remains pending
CT c/a/p without evidence of metastatic disease
Radiation Oncology planning for outpatient consultation upon discharge
Discharge planning home in progress
Emotional support
[facility] office has been updated of patient's clinical status.
Impression
Impression
Anal squamous cell carcinoma
Lower GI bleed on Eliquis
Symptomatic blood loss anemia
Iron deficiency anemia s/p IV iron
Atrial fibrillation s/p cardioversion this admission
ESBL urinary tract infection
Right pleural effusion s/p thoracentesis
Gastritis seen on EGD
Acute kidney injury
Subjective/Objective
Subjective/Objective
patient ambulating around the room independently with PT. OOB to the chair and tolerating diet. denies pain. she states her port site feels less sore.
Vital Signs:
Vital Signs
Temp Pulse Resp BP Pulse Ox
97.7 F 63 16 146/76 98
12/04/23 08:10 12/04/23 08:39 12/04/23 08:10 12/04/23 08:39 12/04/23 08:10
Lab Results:
Laboratory Data
WBC 7.6 10^3/uL (4.8-10.8) 12/03/23 06:17
Hgb 9.3 g/dL (12.0-16.0) L 12/03/23 06:17
Plt Count 198 10^3/uL (130-400) 12/03/23 06:17
PT 18.4 Sec (11.4-14.6) H 11/22/23 08:42
INR 1.52 11/22/23 08:42
APTT 60.1 Sec (23.4-35.0) H 11/29/23 17:29
eGFR 33.63 12/02/23 07:14
physical exam unchanged.
[2023-12-04 10:31] VITALS: BP 130/65; PULSE 63; O2SAT 98
[2023-12-04 11:31] VITALS: BP 130/65
[2023-12-04 11:50] LABS: Glucose - Point of Care 193 mg/dl (70-99)
[2023-12-04] MEDS: NOVOLOG FLEXPEN-LOW RESISTANCE 1 UNITS SC (12:47)
--- NOTE | 2023-12-04 14:24 | W.PN.HOSP.TC ---
Today's Communication/Plan
-
DC
Assessment / Plan
Assessment / Plan
EGD Findings:
-Normal Esophagus
-Mild gastritis, biopsied.
-Normal duodenum, biopsies taken to r/o celiac disease
Colonoscopy Findings:
-3 mm polyp removed via cold snare polypectomy found in the ascending colon. Friable, ulcerated and inflamed mucosa found in the distal area with associated superficial ulcer, which bled easily upon contact, biopsies taken. Suspect stercoral
colitis/ulcer in setting of constipation vs. mucosal prolapse vs. malignancy vs. IBD.
Assessment:
Lower GI and rectal bleeding:
- exacerbated by Eliquis
- symptomatic microcytic acute blood loss anemia
- s/p 2 units pRBC. Hb stable at 9.3 yesterday.
- Iron deficiency on labs - completed IV iron course
- Colonoscopy above. Biopsy revealed: invasive squamous cell carcinoma, well-differentiated
- Colorectal consulted. CT C/A/P without evidence of mets
- Medical oncology consulted - OP f/u to consider chemo/XRT
- s/p PORT placement 11/29; dressing removed . Outpatient Colorectal follow up
- continue Anusol suppositories daily
-Patient had bowel movement with some blood but at that time she had bowel movement without blood. No overt bleeding or clots. She is back on Eliquis. In review of A-fib and cardioversion on this admission would favor continuing Eliquis unless
symptoms she has significant active bleeding. She is not weak or tired. She did well with PT today. Patient advised to keep an eye on her stools and if persistent bleeding or clots or feeling weak to stop Eliquis and get a H&H check.
Persistent atrial fibrillation, h/o SSS s/p PPM
- cont BB; Dilt stopped
- s/p DARION/CV 11/26
- Amio load continues; at DC decrease Amio to 200mg daily
- Continue Eliquis
- Cards signed off
Moderate R pleural effusion
- s/p thoracentesis 11/28; cytology pending
Chronic HFpEF
- cont BB
- hold Lasix
OSMANY on CKD3b with metabolic acidosis
- suspect relatively dry in setting of multiple procedures, bowel prep, bleeding
- FENA pre-renal
- hold Lasix; given 1 bag bicarbonate fluids
- monitor BMP
Possible UTI
- UA with squamous cells, pt asymptomatic.
- UCX ESBL Ecoli
- suspect contamination -consult ID
Hypothyroidism: cont Levoxyl - continue LT4
Essential Hypertension: cont BB
Hyperlipidemia: cont statin
DM2: a1c 7.6%. on Lantus + glipizide/SSI/accu-checks
- Hypoglycemia noted - would hold sulfonylureas going forward.
- holding Jardiance due to low GFR
- FUR DRESSING SUPERVISOR input noted.
Reactive thrombocytosis in setting of bleeding
DVT ppx: Eliquis
Code: Full
PT report noted.
No home care needs on discharge
Patient seen by oncology today and would follow-up with their team on discharge for treatments.
Total time of discharge 35 minutes
Anticipated Discharge: Today
Subjective/Interval History
-
Date of Service: December 04, 2023
Change bowel movement was little bloody, no clots. She had a small bowel movements where there was no blood. No abdominal pain. No nausea vomiting.
No fever or chills.
Objective Data
-
Vital Signs:
Vital Signs
Temp Pulse Resp BP Pulse Ox
97.7 F 63 16 130/65 98
12/04/23 11:31 12/04/23 11:31 12/04/23 11:31 12/04/23 11:31 12/04/23 11:31
I&O
12/03/23 12/04/23 12/05/23
06:59 06:59 06:59
Intake Total 1300 / 1300 1200 / 1200
Balance 1300 / 1300 1200 / 1200
Review of Systems
-
Constitutional: Denies Fever or Weakness
EENT: Denies Sore Throat
Respiratory: Denies Cough or Trouble Breathing
Cardiac: Denies Chest Pain
Neuro: Denies Dizzy or Headache
Physical Exam
-
General: No Apparent Distress
HEENT: Moist Mucous Membranes
Respiratory: Clear to Auscultation
Cardiac: Regular Rhythm and S1/S2; Negative Tachycardic
GI: Soft and Nontender
Neuro: AO x 3
Psych: Calm
--- NOTE | 2023-12-04 14:39 | W.DS.TRANS ---
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
-
Discharge Instructions:
Discharge Diagnosis/Procedures Anorectal cancer; GI bleed needing blood
transufion; afib s/p DARION/CV
Diet Diabetic, Carb Controlled
Activity As tolerated
Driving Restrictions Not until seen by your Dr
Bathing Restrictions None
Blood Work CBC/BMP blood check in one week -arrange through
your PCP
Instructions:
Stand-Alone Forms:
Changes to Home Medications: Yes
Discharge Medications:
DC Medications w/original date entered in [facility]
cholecalciferol (vitamin D3) 25 mcg (1,000 unit) tablet 1,000 units PO DAILY Supplement 07/31/21
tamsulosin 0.4 mg capsule 0.4 mg PO DAILY Urinary issue 07/31/21
atorvastatin 40 mg tablet 40 mg PO HS High cholesterol 09/28/22
levothyroxine 125 mcg tablet 125 mcg PO DAILY Thyroid 09/28/22
apixaban 5 mg tablet (Eliquis) 5 mg PO BID #60 tabs 10/01/22
furosemide 40 mg tablet 40 mg PO DAILY #30 tabs 10/01/22
potassium chloride 20 mEq tablet,extended release 20 meq PO HS Electrolyte Repletion 12/02/22
amiodarone 200 mg tablet 200 mg PO DAILY #30 tabs 12/04/23
cyanocobalamin (vitamin B-12) 1,000 mcg tablet 1,000 mcg PO DAILY #30 tabs 12/04/23
glipizide 5 mg tablet 5 mg PO DAILY #30 tabs 12/04/23
hydrocortisone acetate 25 mg rectal suppository 25 mg OK HS #7 ea 12/04/23
insulin degludec 100 unit/mL (3 mL) subcutaneous pen (Tresiba FlexTouch U-100 insulin) 15 unit (0.15 mL) SQ HS Diabetes #0 mL 12/04/23
metoprolol succinate 25 mg tablet,extended release 24 hr 25 mg PO BID #60 tabs 12/04/23
polyethylene glycol 3350 17 gram oral powder packet (HealthyLax) 17 g PO DAILY #30 ea 12/04/23
Home Medication Changes
To medication-MiraLAX, Anusol, vitamin B12, amiodarone
Change medication-decrease dose of metoprolol, decrease dose of diuretic insulin, decrease dose of glipizide
Discontinue medication-Cardizem
Pending Results: Yes (Cytology from pleural effusion)
[2023-12-04 16:09] VITALS: BP 150/77
--- NOTE | 2023-12-04 16:28 | CM ---
Patient has been medically cleared for discharge to home with no additional skilled services. Patient has made arrangement for transport home.
[2023-12-04 17:44] LABS: Glucose - Point of Care 259 mg/dl (70-99)
[2023-12-04] MEDS: NOVOLOG FLEXPEN-LOW RESISTANCE 3 UNITS SC (17:52)
== END 2023-12-04 19:37 | disposition home or self-care (01) | DRG 375 ==
LOC: 2 NORTH 04:34
PROVIDERS: Emergency Medicine; Hospitalist; Internal Medicine; Nuclear Medicine Nuclear Cardiology; Physician Assistant; Radiology Vascular & Interventional Radiology; Registered Nurse; ADMITTING PHYSICIAN Internal Medicine; ATTENDING PHYSICIAN Internal Medicine; CONSULT PHYSICIAN Internal Medicine Cardiovascular Disease; CONSULT PHYSICIAN Internal Medicine Hematology & Oncology; CONSULT PHYSICIAN Internal Medicine Infectious Disease; CONSULT PHYSICIAN Surgery; EMERGENCY PHYSICIAN Student in an Organized Health Care Education/Training Program; FAMILY PHYSICIAN Physician Assistant; OTHER PHYSICIAN Internal Medicine; OTHER PHYSICIAN Internal Medicine Cardiovascular Disease
PROC: 30233N1 Transfusion of Nonautologous Red Blood Cells into Peripheral Vein, Percutaneous Approach (ICD-10-PCS; 2023-11-21)
PROC: 0DB68ZX Excision of Stomach, Via Natural or Artificial Opening Endoscopic, Diagnostic (ICD-10-PCS; 2023-11-23)
PROC: 0DB98ZX Excision of Duodenum, Via Natural or Artificial Opening Endoscopic, Diagnostic (ICD-10-PCS; 2023-11-23)
PROC: 0DJD8ZZ Inspection of Lower Intestinal Tract, Via Natural or Artificial Opening Endoscopic (ICD-10-PCS; 2023-11-23)
PROC: 0DBP8ZX Excision of Rectum, Via Natural or Artificial Opening Endoscopic, Diagnostic (ICD-10-PCS; 2023-11-24)
PROC: 0DBK8ZZ Excision of Ascending Colon, Via Natural or Artificial Opening Endoscopic (ICD-10-PCS; 2023-11-24)
PROC: 5A2204Z Restoration of Cardiac Rhythm, Single (ICD-10-PCS; 2023-11-27)
PROC: B24BZZ4 Ultrasonography of Heart with Aorta, Transesophageal (ICD-10-PCS; 2023-11-27)
PROC: 02HV33Z Insertion of Infusion Device into Superior Vena Cava, Percutaneous Approach (ICD-10-PCS; 2023-11-28)
PROC: 0W993ZZ Drainage of Right Pleural Cavity, Percutaneous Approach (ICD-10-PCS; 2023-11-29)
PROC: 0JH60XZ Insertion of Tunneled Vascular Access Device into Chest Subcutaneous Tissue and Fascia, Open Approach (ICD-10-PCS; 2023-11-30)
DX: C21.0 Malignant neoplasm of anus, unspecified (principal); D62 Acute posthemorrhagic anemia; I48.21 Permanent atrial fibrillation; I13.0 Hypertensive heart and chronic kidney disease with heart failure and stage 1 through stage 4 chronic kidney disease, or unspecified chronic kidney disease; I50.32 Chronic diastolic (congestive) heart failure; D68.32 Hemorrhagic disorder due to extrinsic circulating anticoagulants; N17.9 Acute kidney failure, unspecified; K62.6 Ulcer of anus and rectum; I48.92 Unspecified atrial flutter; J91.8 Pleural effusion in other conditions classified elsewhere; K92.1 Melena; Q43.8 Other specified congenital malformations of intestine; E87.20 Acidosis, unspecified; N39.0 Urinary tract infection, site not specified; N18.32 Chronic kidney disease, stage 3b; E78.00 Pure hypercholesterolemia, unspecified; E03.9 Hypothyroidism, unspecified; E11.22 Type 2 diabetes mellitus with diabetic chronic kidney disease; I49.5 Sick sinus syndrome; T45.515A Adverse effect of anticoagulants, initial encounter; I95.9 Hypotension, unspecified; K58.0 Irritable bowel syndrome with diarrhea; E66.9 Obesity, unspecified; I08.1 Rheumatic disorders of both mitral and tricuspid valves; K29.70 Gastritis, unspecified, without bleeding; K64.8 Other hemorrhoids; D12.2 Benign neoplasm of ascending colon; Z68.36 Body mass index [BMI] 36.0-36.9, adult; Z79.01 Long term (current) use of anticoagulants; Z79.4 Long term (current) use of insulin; Z79.899 Other long term (current) drug therapy; Z86.73 Personal history of transient ischemic attack (TIA), and cerebral infarction without residual deficits; Z95.0 Presence of cardiac pacemaker; E11.649 Type 2 diabetes mellitus with hypoglycemia without coma; K31.89 Other diseases of stomach and duodenum
CPT/HCPCS: 88305; 32555; 71045; 71260; 74177; 76000; 80048; 80053; 81003; 81015; 82150; 82570; 82607; 82728; 82746; 82945; 82947; 82962; 83036; 83540; 83550; 83615; 83735; 83986; 84155; 84157; 84300; 84478; 85025; 85027; 85610; 85730; 86850; 86900; 86901; 86920; 87015; 87070; 87077; 87086; 87102; 87116; 87186; 87205; 87206; 88112; 88341; 88342; 89051; 92960; 93005; 93312; 93320; 93325; 97116; 97162; 97164; 97165; 97530; 99285; C1788; J1610; J2916; P9016; Q9967

== ENCOUNTER 2024-02-10 21:13 | Inpatient (IN) | payer MEDICARE, SELFPAY ==
[2024-02-10] VITALS (29 sets, daily range): BP systolic 66–128; BP diastolic 35–83; BMI 34.8; BMI 35.3
[2024-02-10 15:04] LABS: Glucose - Point of Care 58 mg/dl (70-99)
--- NOTE | 2024-02-10 15:19 | ED.GENMED ---
History of Present Illness
General
Chief Complaint: Cancer Problem
Source: patient and ambulance crew
Time Seen by Provider: 02/10/24 15:02
History of Present Illness
History of Present Illness:
73yoF with a history of rectal cancer receiving chemotherapy and radiation, atrial fibrillation on Eliquis, hypertension, and type 2 diabetes presenting via EMS for evaluation of generalized weakness. Patient reports feeling generally week over the
past several days. She reports decreased PO intake and has not eaten today. She is also having decreased urine output and dysuria. She endorses palpitations but denies any chest pain. She developed chills earlier today and is febrile to 100.5 on
arrival. She was unable to ambulate today due to her weakness and EMS was called. She denies any vomiting or diarrhea. She receives her cancer treatment at [facility] and was started on chemo/radiation within the past month.
Past History
Past History
ED Past Medical History: Arrthythmia (AFib), CHF, HTN, Hypercholesterolemia, NIDDM, Hypothyroidism and Other (PNA )
ED Past Surgical History: Gynecological (Tubal ligation)
Social History
Tobacco: Non-smoker
Alcohol: None
Drug: None
Personal:
Living: with family
Employment: Retired
Family History
Family History: Diabetes
Phy Exam
Physical Exam
Physical Exam:
Ill appearing, deconditioned, pale
General Physical Exam
General age: appears older than age
General Skin: warm, dry and pale
General Habitus: elderly and frail
General Mental: alert
Cardiovascular Exam
Cardiovascular Exam: irregularly irregular and tachycardia
Pulmonary Exam
Pulmonary Exam: lungs clear, no respiratory distress, no crackles and no wheezing
Gastrointestinal Exam
Gastrointestinal Exam: non tender, soft and non distended
Musculoskeletal Exam
Musculoskeletal Exam: no edema
Course
Orders/Labs/Results
Orders:
Orders
02/10/24 14:52
Electrocardiogram (*1) Urgent
Reason for Study: Tachycardia
02/10/24 14:53
EKG- Treatment ONCE
02/10/24 15:17
0.9% Sodium Chloride 1000 ml [Nss] 1,000 ml IV BOLUS
Acetaminophen [Tylenol] 1,000 mg PO NOW STA
02/10/24 15:18
CR Chest - 2 Views Urgent
Comment:
Reason For Exam: Fever
02/10/24 15:26
COVID-19 Antigen Urgent
Source: Nasal Swab
Influenza A+B Rapid Molecular Urgent
GLENYS Source: Nasal Swab
Specimen Description:
02/10/24 16:04
CMP [Comprehensive Metabolic Panel] Urgent
Complete Blood Count/With Diff Urgent
Lactic Acid Urgent
Magnesium Urgent
TSH Reflex To Free T4 Urgent
Troponin I Urgent
02/10/24 16:10
Blood Culture Routine
GLENYS Source: Blood/Venous
Specimen Description:
Blood Culture Urgent
GLENYS Source: Blood/Venous
Specimen Description:
02/10/24 16:45
Potassium Chloride [KCl] 20 meq PO NOW STA
02/10/24 17:15
0.9% Sodium Chloride 1000 ml [Nss] 1,000 ml IV BOLUS
02/10/24 17:16
CT Abd/pel Without Iv Or Oral Urgent
Comment:
Reason For Exam: Fever, unknown source, hx of rectal cancer, OSMANY
02/10/24 17:22
Cefepime HCl [Maxipime] 2,000 mg IV NOW STA
02/10/24 18:00
Straight Cath As Directed
Frequency: One time now
02/10/24 18:02
Urinalysis Reflex To Culture Urgent
Date Specimen was Collected: 02/10/24
Time Specimen was Collected: 18:00
Urine Microscopic Reflex Cult Urgent
Urine Culture Urgent
GLENYS Source: U
Specimen Description:
Date Specimen was Collected: 02/10/24
Time Specimen was Collected: 18:00
02/10/24 18:28
0.9% Sodium Chloride 500 ml [Nss] 500 ml IV BOLUS
02/10/24 19:30
NORepinephrine 4 MG/250 ML [Levophed] 4 mg in 250 ml IV PER PROTOCOL
Initial dose in mcg/min, then titrate:: 2
Titrate to keep:: SBP > 90 mmHg
Titrate by mcg/min:: 1-2 mcg/min
Frequency of titrations (minutes):: 5
Maximum dose in ICU in mcg/min:: 30
Maximum dose in IMU in mcg/min:: 8
Maximum dose in IVU in mcg/min:: 4
Begin to taper infusion when:: Remained at goal for 4hrs
Taper by mcg/min:: 1-2 mcg/min
Frequency of taper (minutes) if patient maintains goal:: 30
Taper to off?: Yes
If infusion off & no longer maintaining goal:: Contact Provider
02/10/24 20:30
Lactate Level [Lactic Acid] Routine
02/10/24 20:52
Vancomycin [Vancocin] 1,750 mg 0.9% Sodium Chloride 500 ml [Nss] 500 ml IV NOW
02/10/24 20:54
Admit/Transfer Patient As Directed
Co-Sign Provider:
Level of Care: Inpatient admission
Assign to:: ICU
Physician / Group: [email or web address]
Diagnosis: Septic shock, Neutropenic fever,
Reason for Hospitalization: Septic shock require pressors
Neutropenic fever related to current chrmo and XRT
Oliguruc OSMANY due to septic shock
Pancytopenia
Severe thrombocytopenia due to sepsis and chemo
Current Recatal CA
Expected length of stay greater than two midnights?: Yes
ELOS- Estimated Length of Stay in days: 7
I certify the patient meets the requirements for IP care: Yes
02/10/24 20:57
Code Status As Directed
Resuscitation Status: Full Code
02/10/24 22:00
VANCOMYCIN Pharmacy to Dose [VANCOCIN Pharmacy to Dose] 1 each Pharmacy To Prepare [Call Pharmacy To Prepare] 0 ml IV PER PROTOCOL
02/11/24 06:00
Vancomycin Random IN AM
Abnormal Lab Results
02/10/24 02/10/24 02/10/24
15:00 16:04 18:02
WBC 0.4 L* 10^3/uL
(4.8-10.8)
RBC 3.62 L 10^6/uL
(4.20-5.40)
Hgb 9.5 L g/dL
(12.0-16.0)
Hct 29.2 L %
(37.0-47.0)
MCV 80.7 L fL
(81.0-99.0)
MCH 26.2 L pg
(27.0-31.0)
MCHC 32.5 L g/dL
(33.0-37.0)
RDW 18.0 H %
(11.5-14.5)
Plt Count 37 L 10^3/uL
(130-400)
Absolute Neuts (auto) 0.1 L* 10^3/uL
(1.4-6.5)
Absolute Lymphs (auto) 0.1 L 10^3/uL
(1.2-3.4)
Immature Gran % 2.6 H %
(0-0.5)
Neutrophils % 36.8 L %
(42.2-75.2)
Monocytes % 13.2 H %
(1.7-9.3)
Eosinophils % 13.2 H %
(0-6)
Potassium 3.4 L mmol/L
(3.5-5.1)
Chloride 113 H mmol/L
(98-107)
Carbon Dioxide 20 L mmol/L
(22-30)
BUN 44 H mg/dl
(7-17)
Creatinine 2.1 H mg/dL
(0.6-1.0)
Total Protein 5.9 L g/dl
(6.3-8.2)
Albumin 3.2 L g/dl
(3.5-5.0)
Leukocyte Esterase Rfl Trace A
(Negative)
Urine Bacteria (Reflex) Many A
(Negative)
POC Glucose 58 L mg/dl
(70-99)
02/10/24 02/10/24 02/10/24
19:42 19:56 20:07
WBC
RBC
Hgb
Hct
MCV
MCH
MCHC
RDW
Plt Count
Absolute Neuts (auto)
Absolute Lymphs (auto)
Immature Gran %
Neutrophils %
Monocytes %
Eosinophils %
Potassium
Chloride
Carbon Dioxide
BUN
Creatinine
Total Protein
Albumin
Leukocyte Esterase Rfl
Urine Bacteria (Reflex)
POC Glucose 52 L* mg/dl 55 L* mg/dl 62 L mg/dl
(70-99) (70-99) (70-99)
02/10/24 16:04
02/10/24 16:04
Vital Signs
Initial and Last Documented VS:
Initial Vital Signs
Temp Pulse Resp Pulse Ox
100.5 F H 138 18 94
02/10/24 14:47 02/10/24 14:47 02/10/24 14:47 02/10/24 14:47
Last Documented Vital Signs
Temp Pulse Resp BP Pulse Ox
98.6 F 130 30 98/64 99
02/10/24 18:14 02/10/24 21:15 02/10/24 17:45 02/10/24 21:15 02/10/24 19:33
MDM/Problems Addressed
Differential Diagnosis Includes:
73yoF presenting for generalized weakness and poor PO intake. Hx of rectal cancer on chemo and radiation. She is febrile to 100.5 on arrival. HR 138. EKG confirms afib with RVR. She is also hypoglycemia to 56 and has not eaten at all today. Patient
is ill appearing and pale on arrival. Mucous membranes are dry. Differential diagnosis includes but is not limited to: Sepsis, dehydration, electrolyte abnormality, OSMANY
Initial ED plan: Check septic workup including blood cultures, UA, COVID/influenza swab, chest x-ray. Apple juice for hypoglycemia. Tylenol and IV fluid bolus and reassess.
*EKG
Interpreted by ED Provider?: Yes
EKG Intrepretation Date: 02/10/24
Heart Rate: 139
Rate: tachycardiac
Rhythm: a-fib
[place]: left axis deviation
Ischemia: non-specific ST changes
*Critical Care Note
Total Time (30-74mins, 75-104mins- exclusive of procedures): 45
Update Note
Update Note:
Labs reveal pancytopenia with a white blood cell count of 0.4 and a platelet count of 37. ANC 0.1. Creatinine 2.1 which is up from 1.6 in November 2023. No clear source of infection identified. Possible UTI as there are many bacteria on urinalysis
although only 3-5 WBCs. Chest x-ray clear. CT abdomen added which is negative for source of infection. Patient became hypotensive during ED stay. Patient was persistently hypotensive despite receiving 30 cc/kg of IV fluids and she was initiated
on IV Levophed for blood pressure support. IV cefepime given for broad coverage. Patient was admitted for further management.
ED Attending Note
-
Portions of this chart may have been created with voice recognition software.� Occasional wrong word or��sound alike� substitutions may have occurred due to the inherent limitations of voice recognition software.
Discharge Plan
Departure
Patient Disposition: Admit
Date of Disposition: 02/10/24
Time of Disposition: 20:41
Presentation/result/management discussed w/ accepting MD/DO: Hospitalist
Discharge Problem:
Septic shock, Neutropenic fever, Pancytopenia, Atrial fibrillation with RVR, Hypoglycemia
Interventions
Interventions:
*Risk Screen - Suicide Last Done: 02/10/24 14:47
*General Assessment Last Done: 02/10/24 14:47
*Neglect/Abuse Screening Last Done: 02/10/24 14:47
ED- Fall Risk Assessment Last Done: 02/10/24 14:47
*ED COVID-19 Vaccine History Last Done: 02/10/24 14:47
[2024-02-10 15:32] LABS: Glucose - Point of Care 82 mg/dl (70-99)
[2024-02-10] MEDS: TYLENOL 1000 MG PO (15:50)
[2024-02-10] MEDS: NSS 1000 IV ×2 (16:02→17:47)
[2024-02-10 16:10] LABS: COVID-19 Antigen Negative (Negative)
[2024-02-10 16:17] LABS: % Eosinophils 13.2 % (0-6); % Immature Granulocytes 2.6 % (0-0.5); % Lymphocytes 34.2 % (20.5-51.1); % Monocytes 13.2 % (1.7-9.3); % Neutrophils 36.8 % (42.2-75.2); Absolute Eosinophils 0.1 10^3/uL (0-0.7); Absolute Lymphocytes 0.1 10^3/uL (1.2-3.4); Absolute Monocytes 0.1 10^3/uL (0.1-0.6); Hematocrit 29.2 % (37.0-47.0); Hemoglobin 9.5 g/dL (12.0-16.0); Mean Corp Hgb Conc. 32.5 g/dL (33.0-37.0); Mean Corpuscular Hgb 26.2 pg (27.0-31.0); Mean Corpuscular Volume 80.7 fL (81.0-99.0); Mean Platelet Volume 10.4 fL (7.4-10.4); Nucleated Red Blood Cells % 0 %; Platelet Count 37 10^3/uL (130-400); Red Blood Cell Count 3.62 10^6/uL (4.20-5.40)
[2024-02-10 16:29] LABS: AST (SGOT) 15 U/L (14-36); Albumin 3.2 g/dl (3.5-5.0); Alkaline Phosphatase 67 U/L (38-126); Blood Urea Nitrogen 44 mg/dl (7-17); Carbon Dioxide 20 mmol/L (22-30); Estimated Creatinine Clearance 24 ml/min; Glucose 84 mg/dl (70-99); Magnesium 1.6 mg/dl (1.6-2.3); Potassium 3.4 mmol/L (3.5-5.1); Total Bilirubin 1.2 mg/dl (0.2-1.3); Total Protein 5.9 g/dl (6.3-8.2); eGFR 24.27
[2024-02-10 16:37] LABS: ALT (SGPT) 16 U/L (0-35); Calcium 8.4 mg/dl (8.4-10.2); Chloride 113 mmol/L (98-107); Sodium 143 mmol/L (135-145)
[2024-02-10 16:41] LABS: Troponin I < 0.012 ng/ml
[2024-02-10] MEDS: KCL 20 MEQ PO (16:51)
[2024-02-10 16:59] LABS: TSH Reflex To Free T4 0.74 uIU/ml (0.47-4.68)
[2024-02-10 17:03] LABS: Absolute Neutrophils 0.1 10^3/uL (1.4-6.5); White Blood Cell Count 0.4 10^3/uL (4.8-10.8)
[2024-02-10] MEDS: MAXIPIME 2000 MG IV (17:26)
[2024-02-10 18:16] LABS: Urine Albumin Negative (Neg - Trace); Urine Bilirubin Negative (Negative); Urine Character Clear (Clear); Urine Color Yellow; Urine Glucose Negative (Negative); Urine Ketone Negative (Negative); Urine Leukocyte Trace (Negative); Urine Nitrite Negative (Negative); Urine Occult Blood Negative (Negative); Urine Specific Gravity 1.015 (<1.030); Urine Urobilinogen Negative (Neg - 1+)
[2024-02-10] MEDS: NSS 500 IV (19:04)
[2024-02-10 19:20] LABS: Urine Bacteria Many (Negative); Urine Red Blood Cell 0-2 /HPF (0-2)
[2024-02-10 19:44] LABS: Glucose - Point of Care 52 mg/dl (70-99)
[2024-02-10 19:57] LABS: Glucose - Point of Care 55 mg/dl (70-99)
[2024-02-10 20:08] LABS: Glucose - Point of Care 62 mg/dl (70-99)
[2024-02-10 20:20] LABS: Glucose - Point of Care 71 mg/dl (70-99)
[2024-02-10] MEDS: LEVOPHED 250 IV (20:23)
--- NOTE | 2024-02-10 20:48 | HPS.HSE ---
Family Physician
-
Family Physician: Pallavi Clarke, PAC
Chief Complaint
-
Generalized weakness with poor POs, poor urine output
History of Present Illness
73F HX anorectal CA on chemo and XRT , AF on Eliquis , HTN, T2DM bib EMD for evaluation of generalized weakness.
Generalized weakness:
- over several days with por appetite, poor PO intake
- noted decreased UO and dysuria but unremarkable UA at ER
- new onset of chills earlier today and is febrile to 100.5 on arrival
- receives her cancer treatment at [facility]
- currently on XRT. Last chemo was 1 week ago
Medical History
Past Medical History
Past Medical History: Reports Other
Additional Past Medical History:
Arrhythmia (AFib), CHF, HTN, Hypercholesterolemia, NIDDM, Hypothyroidism and Other (PNA )
Past Surgical History: Reports Gynocological (tubal ligation )
Social History
Tobacco: Non-smoker
Alcohol: None
Drug: None
Personal:
Living: With Family
Family History
Family History: Not pertinent
Allergies / Home Medications
Allergies reflects when Allergies were last updated in [facility].
Home Medications with original date entered in [facility]
Allergy/Medication List:
Allergies
Allergy/AdvReac Type Severity Reaction Status Date / Time
sulfamethoxazole Allergy hypotension Verified 11/20/23 18:43
[From Bactrim]
trimethoprim [From Bactrim] Allergy hypotension Verified 11/20/23 18:43
Home Medications
cholecalciferol (vitamin D3) 25 mcg (1,000 unit) tablet 1,000 units PO DAILY Supplement 07/31/21
insulin degludec 100 unit/mL (3 mL) subcutaneous pen (Tresiba FlexTouch U-100 insulin) 26 unit SQ DAILY@1600 Diabetes 07/31/21
tamsulosin 0.4 mg capsule 0.4 mg PO DAILY Urinary issue 07/31/21
atorvastatin 40 mg tablet 40 mg PO DAILY High cholesterol 09/28/22
glipizide 10 mg tablet, extended release 24 hr 10 mg PO BID@0900,1700 Diabetes 09/28/22
levothyroxine 125 mcg tablet 125 mcg PO DAILY Thyroid 09/28/22
metoprolol succinate 50 mg tablet,extended release 24 hr 75 mg PO BID Arrhythmia 09/28/22
apixaban 5 mg tablet (Eliquis) 5 mg PO BID #60 tabs 10/01/22
furosemide 40 mg tablet 40 mg PO DAILY #30 tabs 10/01/22
potassium chloride 20 mEq tablet,extended release 20 meq PO BID 12/02/22
cefdinir 300 mg capsule 300 mg PO BID #10 caps 12/07/22
diltiazem HCl 180 mg capsule,extended release 24 hr 360 mg (2 x 180 mg) PO DAILY #30 caps 12/07/22
Review of Systems
-
Constitutional: Reports See HPI, Fever and Chills
EENT: Reports No Symptoms
Respiratory: Reports No Symptoms
Cardiac: Reports No Symptoms
Abdomen/GI: Reports No Symptoms and Bloody Stools
: Reports Other (poor urine output )
Musculoskeletal: Reports No Symptoms
Skin: Reports No Symptoms
Neurological: Reports Weakness (generalized)
Endocrine: Reports No Symptoms
Hematologic/Lymphatic: Reports No Symptoms
Psych: Reports No Symptoms
Physical Exam
Vital Signs
Vital Signs
Temp Pulse Resp BP Pulse Ox
98.6 F 130 30 83/60 99
02/10/24 18:14 02/10/24 20:30 02/10/24 17:45 02/10/24 20:30 02/10/24 19:33
Physical Exam
General: Well Developed, Well Nourished, Conversant, Appears in Distress (anxiuos ), Poor Appetite and Other (obese )
HEENT: NormoCephalic, Anicteric and Moist mucous membranes (dry)
Respiratory: Clear; No Wheezes, Rales or Rhonchi
Cardiac: S1/S2, Irregular Rhythm and Tachycardia
Breast: Deferred by me
GI: Soft, Non Tender and Non Distended
Rectal: Deferred by Provider
Genito-urinary: Deferred by me
Musculoskeletal: No Edema
Skin: Warm, Dry and Other (Non tender Rt SCL PORT ); No Rash
Neuro: AO x 3 and No Motor Deficits
Psych: Intact Judgment/Insight and Anxious
Laboratory Results
-
02/10/24 16:04
02/10/24 16:04
Laboratory Results
Lactic Acid 1.0 mmol/L (0.7-2.0) 02/10/24 16:04
Total Bilirubin 1.2 mg/dl (0.2-1.3) 02/10/24 16:04
AST 15 U/L (14-36) 02/10/24 16:04
ALT 16 U/L (0-35) 02/10/24 16:04
Alkaline Phosphatase 67 U/L (38-126) 02/10/24 16:04
Troponin I < 0.012 ng/ml 02/10/24 16:04
Data Reviewed
-
Diagnostic Radiology: Report Reviewed by me
CT Scan: Report Reviewed by me
Lab Data: Labs Reviewed by me
Old Records: Reviewed
Impression/Plan
-
Reviewed VS: Tmax 100.5 Lowest BP 73/56-->90/50 HR 130 RR 30 POx 99
Data
WCC 0.4 - baseline is 7-8 in November 2023
ANC 157
Hgb 9.5 - baseline is low 9s
Plt 37 - baseline is 198
Na 143
K 3.4
Cl 113
BUN 44
Cr 2.1 - baseline is mid 1s to 1.8
eGFR 24- baseline is 33s c/w CKD 3b
Nl LFts
BCx x2 sent
NEG UA
NEG Covid
02/10/24 CXR: No acute cardiopulmonary process.
02/10/24 CT Abd/pel Without Iv Or Oral
- No clear evidence for an acute process in the abdomen or pelvis given the significant limitations of the lack of oral and intravenous contrast.
- Soft tissue thickening at the level of the anus compatible with the patient's known anal carcinoma.
09/29/22 TTE
LVEF 50
Moderate mitral stenosis.
Mild tricuspid regurgitation. Severely elevated PASP. Estimated PASP of 68 mmHg assuming a right atrial pressure of 15 mmHg.
Last hospitalist admission: 11/21/23 - 12/04/23
DC DIAGNOSES:
1. Lower gastrointestinal bleed.
2. Symptomatic acute blood loss anemia status post 2 units of blood transfusion.
3. Moderate right pleural effusion status post thoracentesis,cytology pending.
4. Acute kidney injury on chronic kidney disease, stage 3B.
SECONDARY DIAGNOSES:
1. Persistent atrial fibrillation.
2. Chronic heart failure with preserved ejection fraction.
3. Essential hypertension.
4. Hyperlipidemia.
5. Hypothyroidism.
6. Diabetes mellitus with hemoglobin A1c of 10.6.
ASSESSMENT & PLAN
Pending Rx reconciliation
Septic shock require pressors
Neutropenic fever related to current chemo and XRT : calculated ANC 157
No obvious source of infection identified on CXR, CT abdomen, or UA.
No prior MRSA screen in Micro data
Non tender Rt SCL PORT
- BCx times 2
- Agree with Cefepime, will add IV Vanco dose by pharmacy for current eGFR
- Switch to IVF LR
- cont NE gtt
- Held all anti HTN Meds
- ID and ICU consult
Oliguric OSMANY due to septic shock
HX CKD3b with metabolic acidosis
- hold Frusemide
- Trend BMP
- f/u UO
Pancytopenia due to chemo
Severe thrombocytopenia due to sepsis and chemo
No active bleeding
Current Rectal CA
Has Non tender Rt SCL PORT
- currently on XRT. Last chemo was 1 week
- T & S
- Blood consented and scanned
- Trend CBC with Diff
- Onco consult
Fast AF due to septic shock
Permissive VR due to sepsis
HX Prx AF on Eliquis
- Held Eliquis for now
- cont Amiodarone
Chronic HFpEF
- Held BB and Frusemide due to septic shock
Essential Hypertension:
- Held BB and Frusemide
Hyperlipidemia: cont statin
DM2: Last a1c 7.6%.
- Held Glipizide
- Held Jardiance
- Held Lantus
- add ISS low
DVT Px: SCD
Code: Full code
ICU
Total Critical Care Time__50___ minutes.
I was immediately available to the patient and staff. I personally examined, reviewed labs, diagnostic images/reports, interpretations, treatment plans, discussed patient care with other providers and family or caregivers (if patient is unable to
make decisions), entered orders as appropriate and documented the medical record.
--- NOTE | 2024-02-10 20:55 | PHA.VAN.IN ---
Assessment
- Assessment
Renal Function: Appears elevated from baseline
Maximum Temperature: 100.5 F
Plan
- Plan
Initial / Loading Dose: VANCO 1750MG X1
Monitoring: RANDOM 02/10 @0600
Pharmacokinetics Vancomycin I
- -
Patient Age: 73
Patient Sex: Female
Vancomycin Day #: 1
Indication:
Requesting Provider: DR. GONCALVES
Pertinent Antimicrobial Allergies:
TRIMETHOPRIM-SULFAMETHOXAZOLE (HYPOTENSION)
Height / Weight:
Height 5 ft 2 in
Actual Weight 86.1 kg
IBW in k.1
Adjusted BW in k.5
Pertinent Past Medical History: RECTAL CANCER ON CHEMO/RADIATION, DM
- Vital Signs / Lab Results
Temp Pulse Resp BP Pulse Ox
98.6 F 127 30 80/63 99
02/10/24 18:14 02/10/24 20:45 02/10/24 17:45 02/10/24 20:45 02/10/24 19:33
Lab Results - Hematology
02/10/24
16:04
WBC 0.4 L*
Lab Results - Chemistry
02/10/24
16:04
BUN 44 H
Creatinine 2.1 H
Estimated Creat Clear 24
Albumin 3.2 L
02/10/24
16:04
Lactic Acid 1.0
Lab Results - Urine
02/10/24
18:02
Urine Nitrite (Reflex) Negative
Leukocyte Esterase Rfl Trace A
Urine WBC (Reflex) 3-5
Urine Bacteria (Reflex) Many A
Microbiology Results
02/10/24 15:26 Influenza Types A & B (MAKENNA) - Final
Nasal Swab Negative for Influenza A & B, NAAT
Negative results must be combined with clinical observations
and patient history.
Nucleic Acid Amplification test (NAAT)performed on the
[employer] NOW platform.
[2024-02-10 22:30] LABS: Glucose - Point of Care 87 mg/dl (70-99)
[2024-02-10] MEDS: LR 1000 IV (22:32)
[2024-02-10] MEDS: NEO-SYNEPHRINE 250 IV (22:44)
[2024-02-10] MEDS: VANCOCIN 535 MG IV (22:56)
[2024-02-10] MEDS: KCL 160 MEQ IV (23:36)
[2024-02-10 23:42] LABS: Glucose - Point of Care 77 mg/dl (70-99)
[2024-02-11] VITALS (35 sets, daily range): BP systolic 77–109; BP diastolic 47–87; BMI 35.3
[2024-02-11] MEDS: CORDARONE 103 MG IV (00:17)
--- NOTE | 2024-02-11 00:24 | PTCARENOTE ---
rec'd patient from ER around 2200. levo gtt infusing through RCW port. no other IV access upon arrival, delay in hanging meds, see MAR. pt oriented x3. assessment as documented. afebrile. afib on monitor, HR 140s-160s, ICU MANAGER CULINARY aware. amio bolus
infusing. levo gtt titrated off per MANAGER CULINARY, merrill gtt initiated and titrated off per protocol. on RA, denies SOB. BGM [address] arrival. [address] in place. buttocks and groin excoriated, barrier ointment applied. US guided IV placed in LAC. mono repleted.
call chaves within reach, care ongoing.
[2024-02-11] MEDS: CORDARONE 518 MG IV (00:29)
--- NOTE | 2024-02-11 02:14 | PTCARENOTE ---
US guided PIV infiltrated, LUE puffy and firm. PIV removed, RCW port currently infusing amio gtt, no other access at this time. multiple RNs attempted PIV access. ICU EARLY CHILDHOOD DIRECTOR aware.
[2024-02-11] MEDS: MAGNESIUM SULFATE 50 IV (03:05)
[2024-02-11 03:33] LABS: % Eosinophils 10.3 % (0-6); % Lymphocytes 41.4 % (20.5-51.1); % Monocytes 20.7 % (1.7-9.3); % Neutrophils 27.6 % (42.2-75.2); Absolute Lymphocytes 0.1 10^3/uL (1.2-3.4); Absolute Monocytes 0.1 10^3/uL (0.1-0.6); Hematocrit 27.7 % (37.0-47.0); Hemoglobin 8.9 g/dL (12.0-16.0); Mean Corp Hgb Conc. 32.1 g/dL (33.0-37.0); Mean Corpuscular Hgb 26.2 pg (27.0-31.0); Mean Corpuscular Volume 81.5 fL (81.0-99.0); Nucleated Red Blood Cells % 6.9 %; Platelet Count 33 10^3/uL (130-400); Red Cell Dist. Width 18.1 % (11.5-14.5)
[2024-02-11 03:39] LABS: Absolute Neutrophils 0.1 10^3/uL (1.4-6.5); White Blood Cell Count 0.3 10^3/uL (4.8-10.8)
[2024-02-11 03:42] LABS: APTT 33.8 Sec (23.4-35.0); INR 2.02; PT 23.1 Sec (11.4-14.6)
[2024-02-11 03:49] LABS: Vancomycin Random 22.2 ug/ml
[2024-02-11 03:54] LABS: ALT (SGPT) 16 U/L (0-35); AST (SGOT) 17 U/L (14-36); Albumin 2.7 g/dl (3.5-5.0); Alkaline Phosphatase 55 U/L (38-126); Blood Urea Nitrogen 42 mg/dl (7-17); Calcium 7.7 mg/dl (8.4-10.2); Carbon Dioxide 18 mmol/L (22-30); Chloride 116 mmol/L (98-107); Estimated Creatinine Clearance 24 ml/min; Glucose 90 mg/dl (70-99); Magnesium 1.4 mg/dl (1.6-2.3); Potassium 3.9 mmol/L (3.5-5.1); Sodium 141 mmol/L (135-145); Total Bilirubin 1.3 mg/dl (0.2-1.3); Total Protein 5.2 g/dl (6.3-8.2); eGFR 24.27
--- NOTE | 2024-02-11 04:30 | PTCARENOTE ---
AM labs sent. VAT placed 24g in R hand, IVF infusing. no UOP overnight, BS for 515ml, SC for 550mL. pt with pain in vagina/groin/buttock areas due to radiation therapy. barrier ointment applied. purewick removed. pt repositioned. call chaves within
reach, care ongoing.
[2024-02-11] MEDS: STERILE WATER FOR INJECTION 10 ML IV ×3 (04:58→22:19)
[2024-02-11] MEDS: MAXIPIME 1000 MG IV (04:58)
--- NOTE | 2024-02-11 07:06 | CON.INTV ---
Consultation
Consultation Request
Date/Time Consultation Requested: 02/10
Date/Time Consultation Performed: 02/10
Reason for Consultation: Critical care
Medical History
-
History of Present Illness:
History obtained from hospital records, patient, outpatient records. Patient with extremely complex medical history. 73-year-old female with history of anal cancer status postchemotherapy/radiation treated primarily at [facility], atrial
fibrillation, history of stroke, diabetes, brought in by ambulance because of general weakness. Patient has had poor p.o. intake, general weakness over the past few days, states she last received chemotherapy about 1 week ago. She also describes
chills and subjective fevers. She gets occasional chest discomfort. She denies any falls or syncope. Upon arrival to [facility], temperature 100.5, pulse 138, breathing 18, 94%. She was noted to to be pancytopenic. She was pancultured,
given IV fluids. CT abdomen was obtained without any source of infection. Patient developed hypotension that ED, requiring norepinephrine. She was given cefepime/vancomycin admitted to ICU for further management
.
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
history of heart failure, ESBL UTI, GERD/gastritis, history of lower GI bleed on anticoagulation. History of pacemaker 2022, tubal ligation
Past Medical History
Past Medical History: None (See above)
Past Surgical History: None (See above)
Social History
Tobacco: Non-smoker
Alcohol: Occasional
Drug: None
Living: With Family (Takes care of her 10-year-old grandchild. Under significant stress at home. Children have issues with the law/drug abuse, lives with son and daughter as well)
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
Family History
Family History: Other (Both mother and father , history of diabetes. Father had a stroke age 57, mother had coronary disease bypass surgery age 68)
Allergies / Home Medications
Allergies
Allergy/AdvReac Type Severity Reaction Status Date / Time
sulfamethoxazole Allergy hypotension Verified 11/20/23 18:43
[From Bactrim]
trimethoprim [From Bactrim] Allergy hypotension Verified 11/20/23 18:43
Home Medications
�Medication �Instructions �Recorded �Confirmed �Last Taken �Type
cholecalciferol (vitamin D3) 25 1,000 units PO DAILY Supplement 07/31/21 11/21/23 11/20/23 History
mcg (1,000 unit) tablet
tamsulosin 0.4 mg capsule 0.4 mg PO DAILY Urinary issue 07/31/21 11/21/23 11/20/23 History
atorvastatin 40 mg tablet 40 mg PO HS High cholesterol 09/28/22 11/21/23 11/20/23 History
levothyroxine 125 mcg tablet 125 mcg PO DAILY Thyroid 09/28/22 11/21/23 11/20/23 History
apixaban 5 mg tablet (Eliquis) 5 mg PO BID #60 tabs 10/01/22 11/21/23 11/20/23 20:00 Rx
furosemide 40 mg tablet 40 mg PO DAILY #30 tabs 10/01/22 11/21/23 11/20/23 Rx
potassium chloride 20 mEq 20 meq PO HS Electrolyte Repletion 12/02/22 11/21/23 11/20/23 History
tablet,extended release
amiodarone 200 mg tablet 200 mg PO DAILY #30 tabs 12/04/23 Unknown Rx
cyanocobalamin (vitamin B-12) 1,000 mcg PO DAILY #30 tabs 12/04/23 Unknown Rx
1,000 mcg tablet
glipizide 5 mg tablet 5 mg PO DAILY #30 tabs 12/04/23 Unknown Rx
hydrocortisone acetate 25 mg 25 mg CO HS #7 ea 12/04/23 Unknown Rx
rectal suppository
insulin degludec 100 unit/mL (3 15 unit (0.15 mL) SQ HS Diabetes 12/04/23 11/21/23 11/20/23 Rx
mL) subcutaneous pen (Tresiba #0 mL
FlexTouch U-100 insulin)
metoprolol succinate 25 mg 25 mg PO BID #60 tabs 12/04/23 Unknown Rx
tablet,extended release 24 hr
polyethylene glycol 3350 17 gram 17 g PO DAILY #30 ea 12/04/23 Unknown Rx
oral powder packet (HealthyLax)
Review of Systems
-
All other systems: Negative unless noted
Vitals / Labs / Diagnostic Testing
Vital Signs
Temp Pulse Resp BP Pulse Ox
99.6 F 133 17 99/69 98
02/11/24 03:04 02/11/24 06:00 02/11/24 06:00 02/11/24 06:00 02/11/24 06:00
Lab Data
02/11/24 03:03
02/11/24 03:03
Laboratory Results
02/11/24
03:03
PT 23.1 H
INR 2.02
APTT 33.8
Microbiology
02/10/24 15:26 Nasal Swab Influenza Types A & B (MAKENNA) - Final
Negative for Influenza A & B, NAAT
Negative results must be combined with clinical observations
and patient history.
Nucleic Acid Amplification test (NAAT)performed on the
[employer] NOW platform.
Diagnostic Testing:
Physical Exam
-
HEENT: Normocephalic, Anicteric and Other (Anterior chest port)
Cardiovascular: S1/S2, Irregular Rhythm (Tachycardic), Murmur (n), Rub (n), Peripheral Edema (tr) and Calf Tenderness (n)
Respiratory: Wheeze (n), Rales (n), Rhonchi (n) and Non-Labored Respirations
GI: Soft, Non Distended (Obese) and Non Tender
Neurology: Awake (Lethargic but arousable. Depressed affect) and No Motor Deficits (General weakness)
Skin: Other (Pallorous, no skin rash)
General: Comfortable (Appears fatigued)
Assessment
-
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
pancytopenic, hypotensive with fevers and renal insufficiency. Patient admitted to ICU for neutropenic fever and sepsis
Septic shock, requiring pressors
Neutropenic fever
Pancytopenia, ANC 157
Acute renal insufficiency, creatinine 2.1
History of CKD stage IIIb
History of renal failure July 2021 with
Anal squamous cell cancer, stage III
Diagnosed November 2023, not surgical candidate
Ongoing chemotherapy/radiation at [place]
Follows oncology ([facility])
Atrial fibrillation with rapid ventricular response
On amiodarone
Held for lower GI bleed
Moderate MR/TR, mitral stenosis
Per DARION 11/27/2023
Moderate pulm hypertension, PA systolic pressure 68 per echo September 2022
Conditions present prior to admission
History of congestive heart failure
Tachybradycardia syndrome
Pacemaker placement August 2022
History of stroke 1994
Diabetes
Morbid obesity
Plan/recommendations
Patient with extremely complex medical history. Salient features include neutropenic fever with septic shock without any obvious source at this time. Abdominal imaging without any focal abnormality
No abdominal pain on exam. Chest x-ray unremarkable
Patient with also complex cardiac history, valvular disease, pulm hypertension, difficult to control atrial fibrillation. She is not on anticoagulation due to recent lower GI bleed
She does have a Medtronic pacemaker
Moving forward
Continue with empiric antibiotics, cefepime/vancomycin.
Follow cultures (blood, urine)
She has a history of ESBL UTI November 2023, resistant to cefepime. Sensitive to ampicillin/clavulanate, ertapenem, gentamicin, meropenem, Zosyn, Bactrim
ID has been consulted
Remarkably, lactate is normal
Patient with anal cancer, ongoing chemotherapy/radiation
Oncology has been consulted
Will hold off on stress dose steroids at this time. Not sure whether patient received steroids with her chemotherapy regimen
Oncology has been consulted
If does not respond to fluids and requires increased pressors, will empirically start stress dose steroids
Continue with IV fluids, LR
Recent echocardiogram with normal biventricular function, pulm hypertension noted. Baseline creatinine 1.6
Currently 2.1
Monitor I's and O's
Pancytopenia noted. Maintain active type and screen
Will require PICC line, midline
May require central line depending on clinical course. Will contact IR if needed
Port is currently accessed
Lastly, may require cardiology evaluation
Patient has Medtronic pacemaker. Digoxin was discontinued in the past due to renal disease
Patient follows cardiology ([facility])
Follow blood sugars, insulin sliding scale
DVT prophylaxis: Sequential teds
GI prophylaxis: Will add Protonix
Remains high risk situation
Presently, full CODE STATUS noted
TCCT 50 min
--- NOTE | 2024-02-11 07:40 | PHA.VAN.FU ---
Vancomycin Assessment / Plan
- Assessment
Renal Function: Stable (2.1>2.1)
WBC's are: Trending Down (0.4>0.3, MVG=720)
In the past 24 hrs, patient has been: Febrile (Tmax 100.5 02/10/24 at 14:47 orally, currently afebrile)
Concomitant Antimicrobials: Cefepime
- Assessment - Therapeutic Drug Monitoring
Random Level: 22.2 drawn ~4 hrs after vanco 1750mg loading dose given
- Dosing Plan
Dosing by Level: Hold off on dosing today
- Monitoring Plan
Random Level: Ordered for 02/12/24 at 06:00
- Follow Up
Pharmacy will continue to follow.
Vancomycin Follow UP
- -
Patient Age: 73
Patient Sex: Female
Vancomycin Day #: 2
Indication: NEUTR
Requesting Provider: DR. GONCALVES
Pertinent Antimicrobial Allergies:
TRIMETHOPRIM-SULFAMETHOXAZOLE (HYPOTENSION)
Height / Weight:
Height 5 ft 2 in
Actual Weight 87.5 kg
IBW in k.1
Adjusted BW in k.5
Pertinent Past Medical History: RECTAL CANCER ON CHEMO/RADIATION, DM
- Vital Signs / Lab Results
Temp Pulse Resp BP Pulse Ox
99.6 F 133 17 99/69 98
02/11/24 03:04 02/11/24 06:00 02/11/24 06:00 02/11/24 06:00 02/11/24 06:00
Lab Results - Hematology
02/10/24 02/11/24
16:04 03:03
WBC 0.4 L* 0.3 L*
Lab Results - Chemistry
02/10/24 02/11/24
16:04 03:03
BUN 44 H 42 H
Creatinine 2.1 H 2.1 H
Estimated Creat Clear
Albumin 3.2 L 2.7 L
02/10/24 02/10/24 02/10/24
16:04 20:30 22:03
Lactic Acid 1.0 Cancelled Cancelled
02/11/24
02:03
Lactic Acid Cancelled
Lab Results - Urine
02/10/24
18:02
Urine Nitrite (Reflex) Negative
Leukocyte Esterase Rfl Trace A
Microbiology Results
02/10/24 15:26 Influenza Types A & B (MAKENNA) - Final
Nasal Swab Negative for Influenza A & B, NAAT
Negative results must be combined with clinical observations
and patient history.
Nucleic Acid Amplification test (NAAT)performed on the
Virtual Web platform.
Therapeutic Drug Monitoring
Random Vancomycin 22.2 ug/ml 02/11/24 03:03
[2024-02-11] MEDS: NOVOLOG FLEXPEN-LOW RESISTANCE SC ×3 (07:45→16:38)
[2024-02-11] MEDS: LR 1000 IV ×2 (08:09→16:45)
--- NOTE | 2024-02-11 08:32 | PTCARENOTE ---
Update with yarn sorter team. Review concerns for ICU and events of evening. Continue to work with VAT team. Follow up picc vs midline. Amiodarone as per protocol. Neosynephrine remains off. IVF as ordered will follow lab trends and continue with
assessment, vital sign trends ongoing. Follow input output trends with bladder scan and urine totals. Ongoing skin concerns will update wound care needs, continue with skin care protocols. Patient emotional this am. Continue emotional support and
supportive cares. Await consult follow up.
--- NOTE | 2024-02-11 09:03 | CON.ID ---
Consultation
-
Date/Time Consultation Requested: 02/10/24 22:03
Date/Time Consultation Performed: 02/11/24 9:03
Requesting Provider: Dr Howell
Performing Provider: Dr Myers
Reason for Consultation: Rectal CA on XRT a/w septic shock, neurtropenic fever, OSMANY on CKD3b
Chief Complaint / Past History
Chief Complaint
Generalized weakness with poor POs, poor urine output
History of Present Illness
Ms Quesada is a 73 year old female with history of anorectal cancer on on chemotherapy and XRT (last chemotherapy about 1 week ago, typically gets treatment at [facility]), DM2 presented here last night via EMS for several days of weakness, dysuria,
decreased urine output. Also palpitations without chest pain. Progressed to fevers and chills on the day of admission. When she was unable to ambulate EMS was called. Of note on hydrocortisone as an outpatient.
Since arrival here tmax 100.5 orally, initially hypotensive requiring pressors to a max of norepi 4 now off, pulse remains 130s, intermittent tachypnea noted, wbc 0.4 on arrival now 0.3, hgb 8.9, plt 33 down from normal 3 months ago, ANC 100, cr 1.6
baseline now 2.1, lactic acid 1.0, covid ag neg, CT a/p without IV or oral contrast: soft tissue thickening at the anus - consistent with anal carcinoma, CXR: no acute process, ua negative, urine culture pending, blood cultures x2 in progress,
influenza negative, previously colonized with an ESBL a few months ago. Currently on vancomycin and cefepime, ID is consulted for assistance with management.
Past History
Additional Past Medical History:
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
heart failure, ESBL UTI, GERD/gastritis, history of lower GI bleed on anticoagulation. History of pacemaker 2022, tubal ligation
Additional Past Surgical History:
(tubal ligation )
Allergy History:
sulfamethoxazole [From Bactrim] Allergy (Verified 11/20/23 18:43)
hypotension
trimethoprim [From Bactrim] Allergy (Verified 11/20/23 18:43)
hypotension
Medications Reviewed: Yes
Social History
Tobacco: Non-Smoker
Alcohol: None
Drug: None
Personal: Other (Takes care of her 10-year-old grandchild. Under significant stress at home. Children have issues with the law/drug abuse, lives with son and daughter as well)
Family History
Family History: Not Pertinent
Review of Systems
Review of Systems
General: Fever and Chills
All systems: All other systems were reviewed and were negative
Vital Signs
Temp Pulse Resp BP Pulse Ox
99 F 135 24 88/61 98
02/11/24 07:47 02/11/24 07:47 02/11/24 07:47 02/11/24 07:47 02/11/24 08:00
Physical Exam
Physical Exam
Constitutional: No Acute Distress, Chronically Ill and Obese
Cardiovascular: Regular Rate and S1/S2; Negative Murmur or Rub
Pulmonary: Clear and Symmetric; Negative Wheezes, Rales or Rhonchi
Gastrointestinal: Soft, Non Tender, Non Distended and Normal Bowel Sounds
Skin: Warm and Dry; Negative Rash or Jaundice
Wound: Other (few scattered open lesions around the rectum without significant surrounding erythema)
Neurological: Awake
Lines: Port and Other (midline)
Lab / Diagnostic Study Results
02/11/24 03:03
02/11/24 03:03
Abs Immat Gran (auto) 0.0 10^3/uL (0-0.05) 02/11/24 03:03
Absolute Neuts (auto) 0.1 10^3/uL (1.4-6.5) L* 02/11/24 03:03
Absolute Lymphs (auto) 0.1 10^3/uL (1.2-3.4) L 02/11/24 03:03
Absolute Monos (auto) 0.1 10^3/uL (0.1-0.6) 02/11/24 03:03
Absolute Basos (auto) 0.0 10^3/uL (0-0.2) 02/11/24 03:03
Immature Gran % 0.0 % (0-0.5) 02/11/24 03:03
Neutrophils % 27.6 % (42.2-75.2) L 02/11/24 03:03
Lymphocytes % 41.4 % (20.5-51.1) 02/11/24 03:03
Monocytes % 20.7 % (1.7-9.3) H 02/11/24 03:03
Eosinophils % 10.3 % (0-6) H 02/11/24 03:03
Basophils % 0.0 % (0-2) 02/11/24 03:03
PT 23.1 Sec (11.4-14.6) H 02/11/24 03:03
INR 2.02 02/11/24 03:03
Lactic Acid Cancelled 02/11/24 02:03
Microbiology Results
Micro:
02/10/24 16:10 Blood Culture - Pending
Blood/Venous
02/10/24 16:10 Blood Culture - Pending
Blood/Venous
02/10/24 18:02 Urine Culture - Pending
Urine
02/10/24 15:26 Influenza Types A & B (MAKENNA) - Final
Nasal Swab Negative for Influenza A & B, NAAT
Negative results must be combined with clinical observations
and patient history.
Nucleic Acid Amplification test (NAAT)performed on the
[employer] platform.
Assessment / Plan
Neutropenic Fever
Pancytopenia
Anal Cancer on chemotherapy
OSMANY on CKD
- blood cultures x2 in progress
- note colonization with ESBL
- CXR without infiltrates
- UA negative, urine culture in progress
- covid and influenza ags negative
- mrsa screen, will continue vancomycin to at least 48 hours while following blood cultures in this neutropenic patient with open skin lesions
- weaned off of pressors overnight
- start meropenem - renally dosed
- continue vancomycin - has open lesions around the rectum
- follow clinically
Care Review
Plan reviewed with: Physician (Dr Edge)
[2024-02-11] MEDS: MERREM 500 MG IV ×2 (09:32→22:19)
[2024-02-11 09:33] LABS: Glycohemoglobin (HgbA1c) 7.8 % (4.0-5.6)
[2024-02-11] MEDS: SYNTHROID 125 MCG PO (09:39)
[2024-02-11] MEDS: PROTONIX IV 40 MG IV (09:39)
[2024-02-11] MEDS: OFIRMEV 100 IV ×3 (10:14→22:42)
[2024-02-11 10:16] LABS: Lactic Acid 1.5 mmol/L (0.7-2.0)
--- NOTE | 2024-02-11 10:25 | W.PN.HOSP.TC ---
Addendum entered and electronically signed by Beny Hector MD 02/11/24 11:23:
I personally performed a history and physical exam of the patient and discussed management with the resident. I reviewed the resident's note and agree with the documented findings and plan of care HPI/CC except changes in documentation.
73-year-old female with anal cancer on chemotherapy admitted with generalized weakness. Also had several days of poor appetite and poor p.o. intake. She had decreased urine output
DARION 11/27/2023-normal LV size and function. Ejection fraction 55 to 60%. Biatrial enlargement. Dense mitral annular calcification. Mild to moderate MR. Mild to moderate TR. Moderate MS.
CVS: S1-S2 irregular, tachy, sm at apex
Chest: CTA B/L
Abdomen: Soft, NT , Bowel sounds present
Extremities: No edema
CASH PROCESSOR: Non focal exam
# Septic shock
Neutropenic fever
CAT scan of the abdomen pelvis without contrast-no evidence of infection
Urinalysis-without evidence of UTI
Chest x-ray without evidence of pneumonia
Blood cultures and urine culture pending
Loose stools- check stool studies
On pressors
History of ESBL UTI
Antibiotics changed to meropenem and continue vancomycin
Infectious disease has been consulted
Continue IV fluids
Pressors and wean as tolerated
# Squamous cell anal cancer stage III status postchemotherapy/radiation at [facility]
Diagnosed December 2023
No surgery
Follows with Dr. Bernard oncology
Oncology Consulted
# Pancytopenia secondary to chemotherapy
Transfuse as needed
Last chemotherapy was a week ago
# Acute kidney injury likely secondary to septic shock
History of CKD stage IIIb
Metabolic acidosis
Hold Lasix
# Atrial fibrillation with rapid rate
History of DARION cardioversion November 2023
Continue amiodarone
Patient is also on Eliquis as outpatient- holding as she has thrombocytopenia
# Pacemaker placement 2022
# Moderate MR/TR and MS
Moderate pulmonary hypertension
# Chronic heart failure. Ejection fraction
Hold beta-blockers and Lasix secondary to hypotension
# Hypomagnesemia-replaced
# Hyperlipidemia-continue statin
# Diabetes
Hold glipizide/Jardiance/Lantus
Use sliding scale coverage
# Hypothyroidism-continue Synthroid 125 mcg
# History of stroke
# History of ESBL UTI
# GERD/gastritis-add PPI
# History of right pleural effusion with thoracentesis in the past
# History of lower GI bleed while on anticoagulation
# History of prior intracranial hemorrhage-details unclear
# Obesity per BMI criteria
# Hypoalbuminemia
# DVT prophylaxis-SCDs
# Full code
Discussed with infectious disease
Discussed with music therapist [employer]
D/W RN at bed side
Called son went to message no mail box
Called daughter listed and updated. Made her aware that mom is really sick hypotensive
Total Critical Care Time 45 minutes. I was immediately available to the patient and staff. I personally examined, reviewed labs, diagnostic images/reports, interpretations, treatment plans, discussed patient care with other providers and family
or caregivers (if patient is unable to make decisions), entered orders as appropriate and documented the medical record.
Original Note:
Today's Communication/Plan
-
Septic Shock:
No obvious source of infection. Off pressors with normal MAP
CXR: No acute cardiopulmonary process,
Blood cxs x2: pending
Urinalysis unremarkable, recent hx of Ecoli (ESBL) urine Cx pending
Will send stool cultures/study
Continue Cefepime + Meropenem
Appreciate ID input
Anal cancer:
-Receives chemotherapy and radiation with GVH. Last chemo 2 weeks ago, last radiation 1 week ago
Pancytopenia
Likely secondary to chemotherapy
-Appreciate hem/onc
Afib
with RVR on presentation
Recent Hx of cardioversion with return to SR
-Hold Eliquis given thrombocytopenia
-Continue Amioderone for rhythm control
OSMANY on CKD3b
Oliguria, Cr 2.1. Unimproved with IVF hydration. Baseline 1.2 from 11/2023
Continue IVF
-Get urinary sodium and creatinine
Hypokalemia:
Repleted, resolved
Hypertension:
Hold home antihypertensive for shock
Diabetes:
Hold Home meds
-ISS
Hyperlipidemia
-Continue Statin
Hx of CHF:
-Metoprolol and furiosemide held for shock
Hx of Stroke
Obesity
DVT prophylaxis: SCDs
Code Status; Full Code
Assessment / Plan
Assessment / Plan
Anticipated Discharge: > 48 hours
Subjective/Interval History
-
Date of Service: February 11, 2024
Off pressors
Objective Data
-
Labs:
Laboratory Results
02/11/24 02/11/24
03:03 09:55
WBC 0.3 L*
Hgb 8.9 L
Hct 27.7 L
Plt Count 33 L
PT 23.1 H
INR 2.02
APTT 33.8
Sodium 141
Potassium 3.9 Pending
Chloride 116 H
Carbon Dioxide 18 L
BUN 42 H
Creatinine 2.1 H
Glucose 90
Calcium 7.7 L
Total Bilirubin 1.3
AST 17
ALT 16
Alkaline Phosphatase 55
Vital Signs:
Vital Signs
Temp Pulse Resp BP Pulse Ox
99 F 133 21 95/60 97
02/11/24 07:47 02/11/24 09:00 02/11/24 09:00 02/11/24 08:00 02/11/24 09:00
I&O
02/10/24 02/11/24 02/12/24
06:59 06:59 06:59
Intake Total 1789.8 / 1906.5 596.8 / 596.8
Output Total 550 / 550
Balance 1239.8 / 1356.5 596.8 / 596.8
Review of Systems
-
History Source: Patient
Respiratory: Denies Cough or Trouble Breathing
Cardiac: Denies Chest Pain
Abdomen/GI: Reports Diarrhea; Denies Abdominal Pain or Constipated
Genitourinary: Reports Dysuria
Physical Exam
-
General: No Apparent Distress, Comfortable, Obese and Other (somnolent, but responsive)
HEENT: Normocephalic, Atraumatic and Anicteric
Respiratory: Clear to Auscultation and Non Labored Respirations
Cardiac: Regular Rhythm, S1/S2 and Tachycardic; Negative Murmur
GI: Soft, Nontender, Nondistended and Normal Bowel Sounds
Musculoskeletal: No Clubbing, No Cyanosis and No Edema
Skin: Warm and Dry; Negative Rash
Neuro: Oriented and Other (Somnolent, but rousable and responds to questions )
[2024-02-11 10:27] LABS: Potassium 4.1 mmol/L (3.5-5.1)
[2024-02-11 11:53] LABS: Glucose - Point of Care 84 mg/dl (70-99)
--- NOTE | 2024-02-11 12:13 | CM ---
CM following re: discharge planning.
Reviewed pt's chart, met with pt.
Pt is a 73 year old female, admitted with primary dx of Septic shock.
Pt reports she lives with son and a daughter 2SH, 2 steps to enter, has 1st floor set up. Pt reports she mostly ambulates with a cane, has a walker and a w/c, [facility]. pt expressed her desire to return back home at discharge with [facility] and
family support.
PCP: Pallavi Lunsford
Pharmacy: [facility].
D/C plan: home with [facility] and family support. Family to transport at discharge.
CM will follow with discharge plan updates as hospitalization progresses
--- NOTE | 2024-02-11 12:38 | PTCARENOTE ---
Hospitalist team in and out at bedside. Oncology also into see patient. Instructor Programmable Controllers continues to round and follow up vs and assessment trends. Infectious disease at bedside earlier today with follow up labs and antibiotics. Continue with drip trends
and charting. Ongoing hourly rounds, safety checks and skin cares as per unit based protocols.
[2024-02-11 13:22] LABS: Urine Sodium < 5 mmol/L (30-90)
--- NOTE | 2024-02-11 15:23 | CON.ONC ---
Impression
Impression
sepsis - unclear etiology
neutropenic fever
anal cancer -s/p mitomycin C/ infusional 5FU 01/28 - 02/01 - ongoing XRT
afib
anemia
thrombocytopenia
OSMANY on CKD
Plan
Plan
1. Sepsis / neutropenic fever
-in ICU - nutrition internship managing
-cultures pending
-antibiotics as per ID
2. Anal cancer s/p mitomycin C/ 5FU - 01/28 - 02/01 - w/ oncoing XRT
-component of cytopenias are likely related to recent chemotherapy administration
-monitor CBC closely
-w/ patient being critically ill - XRT will likely be held
-cont supportive care
Will continue to follow with you.
Patient History
History of Present Illness
73y/o female seen in consultation today regarding h/o anal cancer. She is currently undergoing concurrent chemotherapy and XRT, under the care of Dr. Still and Dr. Lang. She received her 1st week of mitomycin C and infusional 5FU 01/28 - 02/01.
She now presents to the [place] ER w/ increased fatigue and lethargy. On arrival to the ER, she was febrile to 100.5 and tachycardic. Due to hypotension, she was admitted to the ICU for management of sepsis. She has been started on
pressors along w/ broad spectrum antibiotics. CBC on presentation revealed neutropenia w/ total WBC 400, w/ ANC 100. Hemoglobin was 9.5g/dl and platelet count 37,000.
She remains febrile this am. She notes no SOB at rest. No chest pain. No abdominal pain.
Past-Medical/Surgical History
PMH:
anal cancer - mitomycin C/ infusional 5FU - XRT
atrial fibrillation
history of right pleural effusion
hyperthyroidism
hypertension
hyperlipidemia
hypothyroidism
history of stroke 1994
ESBL UTI
GERD/gastritis
history of lower GI bleed on anticoagulation
History of pacemaker 2022
SH:
Tobacco: Non-smoker
Alcohol: Occasional
Drug: None
FH:
Family History: Other (Both mother and father , history of diabetes. Father had a stroke age 57, mother had coronary disease bypass surgery age 68
Allergies: NKDA
Patient Medication
�Medication �Instructions �Recorded �Confirmed �Last Taken �Type
cholecalciferol (vitamin D3) 25 1,000 units PO DAILY Supplement 07/31/21 02/11/24 02/09/24 08:00 History
mcg (1,000 unit) tablet
tamsulosin 0.4 mg capsule 0.4 mg PO DAILY Urinary issue 07/31/21 02/11/24 02/09/24 08:00 History
atorvastatin 40 mg tablet 40 mg PO HS High cholesterol 09/28/22 02/11/24 02/10/24 18:00 History
levothyroxine 125 mcg tablet 125 mcg PO DAILY Thyroid 09/28/22 02/11/24 02/09/24 07:00 History
apixaban 5 mg tablet (Eliquis) 5 mg PO BID #60 tabs 10/01/22 02/11/24 02/10/24 18:00 Rx
furosemide 40 mg tablet 40 mg PO DAILY #30 tabs 10/01/22 02/11/24 02/10/24 Rx
potassium chloride 20 mEq 20 meq PO HS Electrolyte Repletion 12/02/22 02/11/24 02/08/24 08:00 History
tablet,extended release
amiodarone 200 mg tablet 200 mg PO DAILY #30 tabs 12/04/23 02/11/24 02/10/24 08:00 Rx
cyanocobalamin (vitamin B-12) 1,000 mcg PO DAILY #30 tabs 12/04/23 02/11/24 02/09/24 08:00 Rx
1,000 mcg tablet
glipizide 5 mg tablet 5 mg PO DAILY #30 tabs 12/04/23 02/11/24 02/10/24 08:00 Rx
hydrocortisone acetate 25 mg 25 mg AR HS #7 ea 12/04/23 02/11/24 02/08/24 Rx
rectal suppository
insulin degludec 100 unit/mL (3 15 unit (0.15 mL) SQ HS Diabetes 12/04/23 02/11/24 02/10/24 21:00 Rx
mL) subcutaneous pen (Tresiba #0 mL
FlexTouch U-100 insulin)
metoprolol succinate 25 mg 25 mg PO BID #60 tabs 12/04/23 02/11/24 02/10/24 08:00 Rx
tablet,extended release 24 hr
polyethylene glycol 3350 17 gram 17 g PO DAILY #30 ea 12/04/23 02/11/24 02/09/24 08:00 Rx
oral powder packet (HealthyLax)
Active Medications
Generic Name Dose Route Start Last Admin
Trade Name Freq PRN Reason Stop Dose Admin
Amiodarone HCl 200 mg 02/11/24 08:00
Amiodarone 200 Mg Tablet PO 03/10/24 07:59
DAILY CARLOS
Atorvastatin Calcium 40 mg 02/11/24 22:00
Atorvastatin (Lipitor) 40 Mg Tablet PO 03/10/24 21:59
HS CARLOS
Cholecalciferol 25 mcg 02/12/24 08:00
Cholecalciferol (Vitamin D3) 25 Mcg Tablet (1,000 Units) PO 03/11/24 07:59
DAILY CARLOS
Cyanocobalamin 1,000 mcg 02/12/24 08:00
Cyanocobalamin 1,000 Mcg Tablet PO 03/11/24 07:59
DAILY CARLOS
Dextrose 12.5 grams 02/10/24 22:03
Dextrose 50% (0.5 Grams/Ml) 50 Ml Syringe IV 03/09/24 22:02
[id number] PRN
hypoglycemia
Protocol
Glucagon 1 mg 02/10/24 22:03
Glucagon 1 Mg Vial IM 03/09/24 22:02
PRN PRN
hypoglycemia
Protocol
Hydrocortisone Acetate 25 mg 02/10/24 22:03 02/10/24 23:28
Anusol Hc 25 Mg Rectal Suppository RECTAL 03/09/24 22:02 Not Given
HS CARLOS
Vancomycin HCl 1 each/ Device 0 mls @ 0 mls/hr 02/10/24 22:00
IV
PER PROTOCOL CARLOS
As Directed
Lactated Ringer's 1,000 mls @ 100 mls/hr 02/10/24 22:03 02/11/24 08:09
Lr IV 1,000 mls
.Q10H CARLOS Administration
Phenylephrine HCl 50 mg in 250 mls @ 0 mls/hr 02/10/24 22:30 02/10/24 22:44
Adam-Synephrine IV 250 mls
PER PROTOCOL CARLOS Administration
Protocol
Per Protocol
Amiodarone HCl 900 mg/ 518 mls @ 0 mls/hr 02/10/24 23:45 02/11/24 00:29
Dextrose/Water IV 518 mls
PER PROTOCOL CARLOS Administration
Protocol
Per Protocol
Acetaminophen 1,000 mg in 100 mls @ 400 mls/hr 02/11/24 10:08 02/11/24 10:14
Ofirmev IV 02/12/24 10:07 100 mls
Q6HPRN PRN Administration
temp > 100.5
Protocol
Insulin Aspart 0 units 02/11/24 07:30 02/11/24 12:34
Insulin Aspart Low Resistance 300 Units/3 Ml Pen.Injctr SC 03/10/24 07:29 Not Given
AC CARLOS
Protocol
Levothyroxine Sodium 125 mcg 02/11/24 10:00 02/11/24 09:39
Levothyroxine 125 Mcg Tablet PO 03/10/24 09:59 125 mcg
DAILY@0600 CARLOS Administration
Meropenem 500 mg 02/11/24 10:00 02/11/24 09:32
Meropenem 500 Mg/10 Ml Vial IV 500 mg
Q12H CARLOS Administration
Pantoprazole Sodium 40 mg 02/11/24 10:00 02/11/24 09:39
Pantoprazole Sodium 40 Mg/10 Ml Vial IV 03/10/24 09:59 40 mg
DAILY CARLOS Administration
Sodium Chloride 0 flush 02/10/24 23:00
Sodium Chloride 0.9% (Flush) Syringe IV 03/09/24 22:59
PER PROTOCOL CARLOS
Sterile Water 10 ml 02/11/24 10:00 02/11/24 09:32
Sterile Water For Injection 10 Ml Vial IV 03/10/24 09:59 10 ml
Q12H CARLOS Administration
Tamsulosin HCl 0.4 mg 02/12/24 08:00
Tamsulosin 0.4 Mg Capsule PO 03/11/24 07:59
DAILY CARLOS
Review of Systems
-
A limited ROS was performed due to the patient's critically ill state w/ pertinent findings as per HPI.
Physical Exam
-
General: Well Developed
HEENT: Negative Jaundice
Cardiology: Irregular Rate/Rhythm
Pulmonary: Other (decreased at bases)
GI: Soft
Extremities: No C/C/E
Neurology: Non Focal
Labs
Lab Results
WBC 0.3 10^3/uL (4.8-10.8) L* 02/11/24 03:03
RBC 3.40 10^6/uL (4.20-5.40) L 02/11/24 03:03
Hgb 8.9 g/dL (12.0-16.0) L 02/11/24 03:03
Hct 27.7 % (37.0-47.0) L 02/11/24 03:03
MCV 81.5 fL (81.0-99.0) 02/11/24 03:03
MCH 26.2 pg (27.0-31.0) L 02/11/24 03:03
MCHC 32.1 g/dL (33.0-37.0) L 02/11/24 03:03
RDW 18.1 % (11.5-14.5) H 02/11/24 03:03
Plt Count 33 10^3/uL (130-400) L 02/11/24 03:03
MPV Not Reportable 02/11/24 03:03
Abs Immat Gran (auto) 0.0 10^3/uL (0-0.05) 02/11/24 03:03
Absolute Neuts (auto) 0.1 10^3/uL (1.4-6.5) L* 02/11/24 03:03
Absolute Lymphs (auto) 0.1 10^3/uL (1.2-3.4) L 02/11/24 03:03
Absolute Monos (auto) 0.1 10^3/uL (0.1-0.6) 02/11/24 03:03
Absolute Eos (auto) 0.0 10^3/uL (0-0.7) 02/11/24 03:03
Absolute Basos (auto) 0.0 10^3/uL (0-0.2) 02/11/24 03:03
Immature Gran % 0.0 % (0-0.5) 02/11/24 03:03
Neutrophils % 27.6 % (42.2-75.2) L 02/11/24 03:03
Lymphocytes % 41.4 % (20.5-51.1) 02/11/24 03:03
Monocytes % 20.7 % (1.7-9.3) H 02/11/24 03:03
Eosinophils % 10.3 % (0-6) H 02/11/24 03:03
Basophils % 0.0 % (0-2) 02/11/24 03:03
Creatinine 2.1 mg/dL (0.6-1.0) H 02/11/24 03:03
Vital Signs
Vital Signs
Temp Pulse Resp BP Pulse Ox
100.5 F H 117 16 108/77 100
02/11/24 11:47 02/11/24 15:00 02/11/24 15:00 02/11/24 15:00 02/11/24 15:00
--- NOTE | 2024-02-11 15:35 | PTCARENOTE ---
Patient's daughter updated via phone by MD. Follow up concerns of cares. She stated that her mother has been dealing with alot of stress and has history of frequent urinary tract infections. Continue with teaching, supportive cares and skin care
protocols. Patient still states has no appetite, feels sick to stomach with PO intake at all. Continue to offer fluids and nutrition, offer several options even reviewed menu options. Patient continues to offer no interest at this time. Will update
MD follow any changes and orders.
--- NOTE | 2024-02-11 16:51 | PTCARENOTE ---
Patient again expressing no interest in dinner. Also expressing she's exhausted and does not want to talk with her family as of this assessment. Skin cares and completed bed bath done. Repositioned for comfort, meds with follow up via emar. Heart
rate much improved thru shift. See follow up vital sign trends.
[2024-02-11 17:13] LABS: Glucose - Point of Care 73 mg/dl (70-99)
--- NOTE | 2024-02-11 18:06 | PTCARENOTE ---
Continue to offer nourishment. Patient tolerating sips of tr shimon and apple juice. Ordered clear tray soup broth jello reinforcing need to increase po intake. Patient expressing concerns with nausea, loose stools and abdominal pain. Discuss some
diet concerns, reinforce teaching and continue supportive cares. Will update possible dietary consult to assist in am.
--- NOTE | 2024-02-11 20:30 | PTCARENOTE ---
rec'd patient. assessment as documented. oriented x3. afib on monitor. amio/IVF/merrill gtts continue. SCDs in place. on 2L NC, denies SOB. poor appetite, oral intake provided at this time. brewer in place. excoriation to groin/buttocks, cream provided.
pt repositioned with pillows. call chaves within reach, care ongoing.
[2024-02-11] MEDS: LIPITOR 40 MG PO (22:18)
[2024-02-12] VITALS (58 sets, daily range): BP systolic 60–115; BP diastolic 37–100; BMI 36.2
[2024-02-12] MEDS: CORDARONE 518 MG IV (01:15)
[2024-02-12] MEDS: LR 1000 IV ×3 (03:49→21:50)
--- NOTE | 2024-02-12 04:18 | PTCARENOTE ---
AM labs sent. merrill, amio, IVF gtts continue. HR 90-110s, MAP maintained >65. pt with small BM, cleaned and repositioned, stool sample sent. call chaves within reach, care ongoing.
[2024-02-12 04:41] LABS: ALT (SGPT) 25 U/L (0-35); AST (SGOT) 24 U/L (14-36); Albumin 2.5 g/dl (3.5-5.0); Alkaline Phosphatase 56 U/L (38-126); Blood Urea Nitrogen 46 mg/dl (7-17); Calcium 7.8 mg/dl (8.4-10.2); Carbon Dioxide 19 mmol/L (22-30); Chloride 114 mmol/L (98-107); Estimated Creatinine Clearance 24 ml/min; Glucose 81 mg/dl (70-99); Magnesium 1.9 mg/dl (1.6-2.3); Sodium 139 mmol/L (135-145); Total Bilirubin 1.2 mg/dl (0.2-1.3); Vancomycin Random 12.3 ug/ml; eGFR 24.27
[2024-02-12 04:42] LABS: % Eosinophils 6.3 % (0-6); % Immature Granulocytes 2.1 % (0-0.5); % Lymphocytes 45.8 % (20.5-51.1); % Monocytes 18.8 % (1.7-9.3); Absolute Lymphocytes 0.2 10^3/uL (1.2-3.4); Absolute Monocytes 0.1 10^3/uL (0.1-0.6); Hematocrit 26.8 % (37.0-47.0); Hemoglobin 8.6 g/dL (12.0-16.0); Mean Corp Hgb Conc. 32.1 g/dL (33.0-37.0); Mean Corpuscular Hgb 26.1 pg (27.0-31.0); Mean Corpuscular Volume 81.5 fL (81.0-99.0); Nucleated Red Blood Cells % 8.3 %; Platelet Count 52 10^3/uL (130-400); Red Blood Cell Count 3.29 10^6/uL (4.20-5.40)
[2024-02-12 04:44] LABS: White Blood Cell Count 0.5 10^3/uL (4.8-10.8)
[2024-02-12 04:45] LABS: Absolute Neutrophils 0.1 10^3/uL (1.4-6.5)
[2024-02-12] MEDS: SYNTHROID 125 MCG PO (05:07)
[2024-02-12] MEDS: NEO-SYNEPHRINE 250 IV ×2 (05:48→18:25)
--- NOTE | 2024-02-12 07:22 | W.PN.HOSP.TC ---
Addendum entered and electronically signed by Beny Hector MD 02/12/24 15:04:
Resumed anticoagulation with heparin drip while in ICU. Hold off on Eliquis until patient is more stable.
Addendum entered and electronically signed by Beny Hector MD 02/12/24 11:26:
I personally performed a history and physical exam of the patient and discussed management with the resident. I reviewed the resident's note and agree with the documented findings and plan of care HPI/CC except changes in documentation.
73-year-old female with anal cancer on chemotherapy admitted with generalized weakness. Also had several days of poor appetite and poor p.o. intake. She had decreased urine output
DARION 11/27/2023-normal LV size and function. Ejection fraction 55 to 60%. Biatrial enlargement. Dense mitral annular calcification. Mild to moderate MR. Mild to moderate TR. Moderate MS.
CVS: S1-S2 tachy, sm at apex
Chest: CTA B/L, decreased at bases
Abdomen: Soft, NT , Bowel sounds present
Extremities: No edema
SYSTEMS LEAD: Non focal exam
# Septic shock
Neutropenic fever
CAT scan of the abdomen pelvis without contrast-no evidence of infection
Urinalysis-without evidence of UTI
Chest x-ray without evidence of pneumonia
Blood cultures and urine culture pending
C diff AG positive and toxin neg- Will add PO Vanco
On pressors
History of ESBL UTI
Antibiotics changed to meropenem and continue vancomycin
Infectious disease following
Continue IV fluids
Pressors and wean as tolerated-Back on it now
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
Diagnosed December 2023
No surgery
Follows with Dr. Bernard oncology
Oncology Consulted and following
# Pancytopenia secondary to chemotherapy
Transfuse as needed
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
# Acute kidney injury likely secondary to septic shock
History of CKD stage IIIb
Metabolic acidosis- better
Hold Lasix
# Atrial fibrillation with rapid rate
History of DARION cardioversion November 2023
Continue amiodarone, change from IV to PO
Patient is also on Eliquis as outpatient- Restarted per D/W Heme Onc
# Pacemaker placement 2022
# Moderate MR/TR and MS
Moderate pulmonary hypertension
# Chronic heart failure with preserved EF
Hold beta-blockers and Lasix secondary to hypotension
# Hypomagnesemia-replaced
# Hyperlipidemia-continue statin
# Diabetes
Hold glipizide/Jardiance/Lantus
Use sliding scale coverage
# Hypothyroidism-continue Synthroid 125 mcg
# History of stroke
# History of ESBL UTI
# GERD/gastritis-added PPI
# History of right pleural effusion with thoracentesis in the past
# History of lower GI bleed while on anticoagulation
# History of prior intracranial hemorrhage-details unclear
# Obesity per BMI criteria
# Hypoalbuminemia
# DVT prophylaxis-SCDs
# Full code
D/W [employer]
Total Critical Care Time 37 minutes. I was immediately available to the patient and staff. I personally examined, reviewed labs, diagnostic images/reports, interpretations, treatment plans, discussed patient care with other providers entered
orders as appropriate and documented the medical record.
Original Note:
Today's Communication/Plan
-
Continue IV antibiotic, IV fluids, pressors as needed
Assessment / Plan
Assessment / Plan
73-year-old female with anal cancer on chemotherapy admitted with generalized weakness. Also had several days of poor appetite and poor p.o. intake. She had decreased urine output
Septic Shock:
No obvious source of infection. hypotensive, back on pressors for reduced MAP
CXR: No acute cardiopulmonary process,
Blood cxs x2: pending
Urinalysis unremarkable, recent hx of Ecoli (ESBL) urine Cx pending
stool cultures/study pending
Continue vancomycin + Meropenem
Appreciate ID input
Anal cancer:
-Receives chemotherapy and radiation with [facility]. Last chemo 1-2 weeks ago, last radiation 1 week ago
-Pain control
Pancytopenia
Likely secondary to chemotherapy
-Will transfuse as needed
-Appreciate heme-onc input
Afib
with RVR on presentation
Recent Hx of cardioversion with return to SR
-Okay to resume Eliquis
-Continue Amioderone for rhythm control
OSMANY on CKD3b
Oliguria, Cr 2.1. Unimproved with IVF hydration. Baseline 1.2 from 11/2023
FeNa 0%. Prerenal, secondary to shock
-Continue IVF
Hypokalemia:
Repleted, resolved
Hypomagnesemia:
Repleted, resolved, monitor
Hypertension:
Hold home antihypertensive for shock
Diabetes:
Hold Home meds
-ISS
Hyperlipidemia
-Continue Statin
Hx of CHF:
-Metoprolol and furosemide held for shock
Pacemaker placement 2022
Hx of Stroke
Obesity
History of ESBL UTI
GERD/gastritis-add PPI
History of right pleural effusion with thoracentesis in the past
History of lower GI bleed while on anticoagulation
History of prior intracranial hemorrhage-details unclear
Hypoalbuminemia
DVT prophylaxis: SCDs
Code Status; Full Code
Anticipated Discharge: > 48 hours
Subjective/Interval History
-
Date of Service: February 12, 2024
Back on pressors this morning for MAP 55
Objective Data
-
Labs:
Laboratory Results
02/12/24
03:57
WBC 0.5 L*
Hgb 8.6 L
Hct 26.8 L
Plt Count 52 L D
Sodium 139
Potassium 4.0
Chloride 114 H
Carbon Dioxide 19 L
BUN 46 H
Creatinine 2.1 H
Glucose 81
Calcium 7.8 L
Total Bilirubin 1.2
AST 24
ALT 25
Alkaline Phosphatase 56
Vital Signs:
Vital Signs
Temp Pulse Resp BP Pulse Ox
99.8 F 115 12 80/47 100
02/12/24 07:08 02/12/24 06:31 02/12/24 06:31 02/12/24 06:31 02/12/24 06:31
I&O
02/11/24 02/12/24 02/13/24
06:59 06:59 06:59
Intake Total 1789.8 / 1906.5 3526.3 / 3526.3
Output Total 550 / 550 1035 / 1035
Balance 1239.8 / 1356.5 2491.3 / 2491.3
Review of Systems
-
History Source: Patient
Constitutional: Reports Chills
Respiratory: Reports No Symptoms; Denies Cough or Trouble Breathing
Cardiac: Reports Palpitations; Denies Chest Pain
Abdomen/GI: Reports No Symptoms; Denies Abdominal Pain, Nausea or Vomiting
Breast: Reports No Symptoms
Musculoskeletal: Reports No Symptoms and Muscle Stiffness (mild neck stiffness); Denies Joint Pain or Joint Swelling
Physical Exam
-
General: Comfortable; Negative Respiratory Distress
HEENT: Normocephalic, Atraumatic and Moist Mucous Membranes; Negative Thrush
Respiratory: Clear to Auscultation and Non Labored Respirations; Negative Wheezes, Rales or Rhonchi
Cardiac: Regular Rhythm, S1/S2 and Tachycardic
GI: Soft, Nontender, Nondistended and Normal Bowel Sounds
Musculoskeletal: No Clubbing, No Cyanosis and No Edema
Skin: Warm and Dry
Neuro: Awake and Alert
Psych: Calm
--- NOTE | 2024-02-12 07:36 | W.PN.INTV ---
Today's Communication / Plan
Recommendations
Transition to oral amiodarone
Wean pressors as able
Continue broad-spectrum antibiotics
IV fluids
Ensure supplements, follow blood sugars
Assessment
-
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
pancytopenic, hypotensive with fevers and renal insufficiency. Patient admitted to ICU for neutropenic fever and sepsis
Septic shock, requiring pressors
Neutropenic fever
Pancytopenia, ANC 157
Acute renal insufficiency, creatinine 2.1
History of CKD stage IIIb
History of renal failure July 2021 with
Anal squamous cell cancer, stage III
Diagnosed November 2023, not surgical candidate
Ongoing chemotherapy/radiation at [facility]
Follows oncology ([facility])
Atrial fibrillation with rapid ventricular response
On amiodarone
Held for lower GI bleed
Moderate MR/TR, mitral stenosis
Per DARION 11/27/2023
Moderate pulm hypertension, PA systolic pressure 68 per echo September 2022
Conditions present prior to admission
History of congestive heart failure
Tachybradycardia syndrome
Pacemaker placement August 2022
History of stroke 1994
Diabetes
Morbid obesity
Plan/recommendations
Patient with extremely complex medical history. Salient features include neutropenic fever with septic shock without any obvious source at this time. Abdominal imaging without any focal abnormality
No abdominal pain on exam. Chest x-ray unremarkable
Patient with also complex cardiac history, valvular disease, pulm hypertension, difficult to control atrial fibrillation. She is not on anticoagulation due to recent lower GI bleed
She does have a [employer] pacemaker
Remains on amiodarone drip, Adam-Synephrine
Moving forward
Continue with empiric antibiotics, vancomycin/meropenem. Micafungin added
Follow cultures (blood, urine)
She has a history of ESBL UTI November 2023, resistant to cefepime. Sensitive to ampicillin/clavulanate, ertapenem, gentamicin, meropenem, Zosyn, Bactrim
Remarkably, lactate is normal
Perianal lesions noted secondary to radiation therapy
ID following
Patient with anal cancer, ongoing chemotherapy/radiation
Oncology following
Will hold off on stress dose steroids at this time. Not sure whether patient received steroids with her chemotherapy regimen
Oncology has been consulted
If does not respond to fluids and requires increased pressors, will empirically start stress dose steroids
Continue with IV fluids, LR
Recent echocardiogram with normal biventricular function, pulm hypertension noted. Baseline creatinine 1.6
Currently 2.1
Monitor I's and O's
Pancytopenia noted. Maintain active type and screen
Presently have midline. May require PICC line depending on clinical course. Hopefully we can avoid
May require central line depending on clinical course. Will contact IR if needed
Port is currently accessed
Lastly, may require cardiology evaluation
Patient has Medtronic pacemaker. Digoxin was discontinued in the past due to renal disease
Amiodarone started, remains. May consider transitioning to oral
Patient follows cardiology ([facility])
Consider cardiology evaluation if rate control becomes an issue
Follow blood sugars, insulin sliding scale
Hypoglycemia noted but hemoglobin A1c 7.8
Ensure supplements
DVT prophylaxis: Sequential teds
GI prophylaxis: Protonix
Remains high risk situation
Presently, full CODE STATUS noted
TCCT 31 min
Subjective Dataa
Subjective Data
Date of Service:
Date of Service: February 12, 2024
Subjective:
Patient remains critically ill, but may be slightly improved with regards to fatigue and strength. Remains neutropenic. Requiring pressors, Adam-Synephrine at 56 mcg. Also on amiodarone drip. Patient denies chest pain but does have some mild
abdominal discomfort, rectal pain, perineal pain
Objective Data
Data Reviewed
Vital Signs / I&O / Oxygen:
Vital Signs
Temp Pulse Resp BP Pulse Ox
99.8 F 115 12 80/47 100
02/12/24 07:08 02/12/24 06:31 02/12/24 06:31 02/12/24 06:31 02/12/24 06:31
Intake and Output
02/11/24 02/12/24 02/13/24
06:59 06:59 06:59
Intake Total 1789.8 / 1906.5 3526.3 / 3526.3
Output Total 550 / 550 1035 / 1035
Balance 1239.8 / 1356.5 2491.3 / 2491.3
SaO2 100
Nasal Cannula flow liters per 2
minute
Physical Exam
General: Comfortable, Other (.Upper extremity midline ) and Other (Anterior chest port)
HEENT: Normocephalic and Anicteric
Cardiovascular: S1-S2, Regular Rhythm, Murmur (n), Rub (n), Peripheral Edema (n) and Calf Tenderness (n)
Respiratory: Wheeze (n), Crackles (n), Rhonchi (n) and Non-Labored Respirations
GI: Soft, Non Distended and Non Tender
Neurology: Awake, Alert and No Motor Deficits
Skin: Good Color (Mild pallor), Cyanosis (n), Jaundice (n) and Rash
Labs/Micro/Reports
Lab Data
02/12/24 03:57
02/12/24 03:57
Microbiology
02/10/24 16:10 Blood/Venous Blood Culture - Preliminary
No Growth in 24 hours- Final report to follow
02/10/24 16:10 Blood/Venous Blood Culture - Preliminary
No Growth in 24 hours- Final report to follow
02/10/24 15:26 Nasal Swab Influenza Types A & B (MAKENNA) - Final
Negative for Influenza A & B, NAAT
Negative results must be combined with clinical observations
and patient history.
Nucleic Acid Amplification test (NAAT)performed on the
[employer] platform.
[2024-02-12 07:40] LABS: Glucose - Point of Care 84 mg/dl (70-99)
[2024-02-12] MEDS: NOVOLOG FLEXPEN-LOW RESISTANCE SC ×3 (07:57→17:19)
[2024-02-12] MEDS: FLOMAX 0.4 MG PO (08:00)
[2024-02-12] MEDS: VITAMIN D3 (cholecalciferol) 25 MCG PO (08:00)
[2024-02-12] MEDS: VITAMIN B-12 1000 MCG PO (08:00)
[2024-02-12] MEDS: PROTONIX IV 40 MG IV (08:03)
[2024-02-12] MEDS: OFIRMEV 100 IV (08:05)
--- NOTE | 2024-02-12 08:42 | W.PN.ID1 ---
Date of Service
Date of Service: February 12, 2024
Today's Communication
- continue meropenem - renally dosed
- continue vancomycin - has open lesions around the rectum
- add micafungin
Assessment / Plan
Shock likely Septic- ongoing
Neutropenic Fever
Pancytopenia
Anal Cancer on chemotherapy with open excoriations around the anus
OSMANY on CKD
Pacemaker
- blood cultures x2 in progress - no growth to date
- note recent colonization with ESBL
- urine culture in progress
- mrsa screen, will continue vancomycin to at least 72 hours while following blood cultures in this neutropenic patient with open skin lesions, ongoing shock
- continue meropenem - renally dosed
- continue vancomycin - has open lesions around the rectum
- add micafungin
- follow clinically
Chief Complaint
-: Clinical Sepsis (shock) and Other (neutropenic fever)
Subjective / Review of Systems
fever curve improving
now requiring phenylephrine at 50 mcg/min
tachycardia ongoing
mild improvement in leukopenia, plt improving
cr 2.1
blood cultures x2 no growth to date
C difficile was sent today, stool culture was sent today
reports that she did have more tenderness around her rectum prior to arrival
-s/p mitomycin C/ infusional 5FU 01/28 - 02/01 - ongoing XRT
Vital Signs / Physical Exam
Vital Signs
Vital Signs
Temp Pulse Resp BP Pulse Ox
99.8 F 115 12 80/47 100
02/12/24 07:08 02/12/24 06:31 02/12/24 06:31 02/12/24 06:31 02/12/24 06:31
Physical Exam
Constitutional: Acutely Ill and Chronically Ill
Cardiovascular: Regular Rate and S1/S2; Negative Murmur or Rub
Pulmonary: Clear and Symmetric; Negative Wheezes or Rales
Gastrointestinal: Soft, Non Tender, Non Distended and Normal Bowel Sounds
Skin: Warm and Dry; Negative Rash or Jaundice
Objective Data
Lab Data
Lab Results
02/12/24 03:57
02/12/24 03:57
PT 23.1 Sec (11.4-14.6) H 02/11/24 03:03
INR 2.02 02/11/24 03:03
APTT 33.8 Sec (23.4-35.0) 02/11/24 03:03
Estimated Creat Clear 24 ml/min 02/12/24 03:57
Lactic Acid 1.5 mmol/L (0.7-2.0) 02/11/24 09:55
Total Bilirubin 1.2 mg/dl (0.2-1.3) 02/12/24 03:57
AST 24 U/L (14-36) 02/12/24 03:57
ALT 25 U/L (0-35) 02/12/24 03:57
Alkaline Phosphatase 56 U/L (38-126) 02/12/24 03:57
Most recent labs reviewed.
Micro Results:
02/12/24 03:59 C. difficile GDH Antigen & Toxins - Pending
Feces/Stool
02/12/24 03:59 Salmonella/Shigella Culture - Pending
Feces/Stool Campylobacter Culture - Pending
Shiga Toxin Test - Pending
02/10/24 16:10 Blood Culture - Preliminary
Blood/Venous No Growth in 24 hours- Final report to follow
02/10/24 16:10 Blood Culture - Preliminary
Blood/Venous No Growth in 24 hours- Final report to follow
02/11/24 09:55 MRSA Screen - Pending
Nose
02/10/24 18:02 Urine Culture - Pending
Urine
02/10/24 15:26 Influenza Types A & B (MAKENNA) - Final
Nasal Swab Negative for Influenza A & B, NAAT
Negative results must be combined with clinical observations
and patient history.
Nucleic Acid Amplification test (NAAT)performed on the
[employer] platform.
--- NOTE | 2024-02-12 09:20 | PHA.VAN.FU ---
Vancomycin Assessment / Plan
- Assessment
Renal Function: Stable
WBC's are: Stable
Neutropenia: ANC = 100
Concomitant Antimicrobials: meropenem, micafungin
- Assessment - Therapeutic Drug Monitoring
Random Level: 12.3 - drawn ~25H after previous level of 22.2
Calculated ke: 0.0237
Calculated half life (H): 29.2
- Dosing Plan
Dosing by Level: Re-dose today (Vanc 1000mg)
- Monitoring Plan
Random Level: 02/12 600
- Follow Up
Pharmacy will continue to follow.
Vancomycin Follow UP
- -
Patient Age: 73
Patient Sex: Female
Vancomycin Day #: 3
Indication: Neutropenic Fever
Requesting Provider: Dr. Howell / [facility]
Pertinent Antimicrobial Allergies:
aulfamethoxazole/trimethoprim - hypotension
Height / Weight:
Height 5 ft 2 in
Actual Weight 89.6 kg
IBW in k.1
Adjusted BW in k.5
Pertinent Past Medical History: BMI ~36, CKD (baseline SCR ~1.2), DM, Anal cancer
- Vital Signs / Lab Results
Temp Pulse Resp BP Pulse Ox
99.8 F 115 12 80/47 97
02/12/24 07:08 02/12/24 06:31 02/12/24 06:31 02/12/24 06:31 02/12/24 08:00
Lab Results - Hematology
02/10/24 02/11/24 02/12/24
16:04 03:03 03:57
WBC 0.4 L* 0.3 L* 0.5 L*
Lab Results - Chemistry
02/10/24 02/11/24 02/12/24
16:04 03:03 03:57
BUN 44 H 42 H 46 H
Creatinine 2.1 H 2.1 H 2.1 H
Estimated Creat Clear
Albumin 3.2 L 2.7 L 2.5 L
02/10/24 02/10/24 02/10/24
16:04 20:30 22:03
Lactic Acid 1.0 Cancelled Cancelled
02/11/24 02/11/24 02/11/24
02:03 06:03 09:55
Lactic Acid Cancelled Cancelled 1.5
Microbiology Results
02/10/24 16:10 Blood Culture - Preliminary
Blood/Venous No Growth in 24 hours- Final report to follow
02/10/24 16:10 Blood Culture - Preliminary
Blood/Venous No Growth in 24 hours- Final report to follow
02/10/24 15:26 Influenza Types A & B (MAKENNA) - Final
Nasal Swab Negative for Influenza A & B, NAAT
Negative results must be combined with clinical observations
and patient history.
Nucleic Acid Amplification test (NAAT)performed on the
[employer] platform.
Therapeutic Drug Monitoring
Random Vancomycin 12.3 ug/ml 02/12/24 03:57
--- NOTE | 2024-02-12 09:41 | PTCARENOTE ---
Received pt awake and alert.Speech is appropriate.c/o /10 perineum pain.Medicated with Tylenol with good relief.A Fib noted.Right SQ port intact with Amiodarone and Phenylephrine gtts.LR infusing via right midline.O2 2l NC.POX 98%Decreased breath
sounds bibasilar noted.Appetite poor.Pt is fearful of eating.she states 'it goes right through me'.Ensure ordered as per MD.Rogers draining yellow urine.Skin integrity as documented.Woud care consulted as per MD order for assessment and relief of
shaina discomfort.Plan of care discussed with pt.
[2024-02-12] MEDS: STERILE WATER FOR INJECTION 10 ML IV ×2 (10:18→21:51)
[2024-02-12] MEDS: MERREM 500 MG IV ×2 (10:18→21:51)
--- NOTE | 2024-02-12 10:18 | W.PN.ONC2 ---
Today's Communication / Plan
-
- persistent neutropenia with low grade fever over last 24 hours.
- hemodynamically stable on phenylephrine, amio gtt for afib
- ok to resume anticoagulation for afib at this time.
Impression
Impression
sepsis - unclear etiology
neutropenic fever
anal cancer -s/p mitomycin C/ infusional 5FU 01/28 - 02/01 - ongoing XRT
afib
anemia
thrombocytopenia
OSMANY on CKD
Plan
Plan
1. Sepsis / neutropenic fever
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
-cultures pending. BCx NTD, UA fairly unremarkable (trace LE)
-antibiotics as per ID
- G-CSF commonly held with current regimen due to concomitant radiation however this is not absolute contraindication. Pt clinically stable at this time. therefore will continue to hold.
2. Anal cancer s/p mitomycin C/ 5FU - 01/28 - 02/01 - w/ ongoing XRT
-component of cytopenias are likely related to recent chemotherapy administration
-monitor CBC closely
-w/ patient being critically ill - XRT on hold (gets at [facility])
-cont supportive care
- thrombocytopenia improving with plts 52k now. Ok to restart stroke ppx AC with hx of afib at this time from hematological standpoint. Favor use of Lovenox vs. heparin gtt while in pt/ICU then transition to eliquis once more stable.
Will continue to follow with you.
Subjective/Objective
Chief Complaint
neutropenic fever
Subjective
pt notes episode of significant chills overnight. Denies SOB, cough, diarrhea, abdominal pain. She remains on phenylephrine for BP support, amio drip for Afib with RVR. Denies chest pain.
Vital Signs:
Vital Signs
Temp Pulse Resp BP Pulse Ox
99.8 F 118 13 79/54 98
02/12/24 07:08 02/12/24 10:00 02/12/24 10:00 02/12/24 10:00 02/12/24 10:00
Lab Results:
Laboratory Data
WBC 0.5 10^3/uL (4.8-10.8) L* 02/12/24 03:57
Hgb 8.6 g/dL (12.0-16.0) L 02/12/24 03:57
Plt Count 52 10^3/uL (130-400) L D 02/12/24 03:57
PT 23.1 Sec (11.4-14.6) H 02/11/24 03:03
INR 2.02 02/11/24 03:03
APTT 33.8 Sec (23.4-35.0) 02/11/24 03:03
eGFR 24.27 02/12/24 03:57
Physical Exam
HEENT: No Jaundice
Cardiology: Irregular rate/rhythm (afib with tachycardia )
Pulmonary: Clear
GI: Soft
Extremities: No Edema
Neuro: Non Focal
Review of Systems
Review of Systems
Constitutional: Reports Fatigue and Other (chills )
Head: Denies Sore Throat
Respiratory: Denies Dyspnea
Cardiovascular: Denies Chest Pain or Palpitations
Gastrointestinal: Denies Diarrhea
Neurological: Denies Headache
[2024-02-12] MEDS: MYCAMINE 105 MG IV (10:27)
--- NOTE | 2024-02-12 11:48 | PN.CDI ---
Addendum entered and electronically signed by Beny Hector MD 02/12/24 14:22:
Documentation is complete at this time.
Original Note:
CDI
- -
CDI:
Physician Documentation Request
Admit Date: 02/10/24 21:13
Dear Doctor Nicky,
Patient admitted with septic shock, neutropenic fever.
Urine culture positive for e coli
UA result:
Laboratory Tests
02/10/24
18:02
Urine Color Yellow
Urine Clarity Clear
Urine Nitrite (Reflex) Negative
Leukocyte Esterase Rfl Trace A
Urine WBC (Reflex) 3-5
Urine Bacteria (Reflex) Many A
Could you please provide a diagnosis, that supports the above lab abnormalities and additional evaluation/ monitoring:
UTI
Asymptomatic Bacteruria
Other
Use of terms such as suspected, likely, concern for, or probable (associated with a specific diagnosis that is being evaluated, monitored, or treated as if it exists) are acceptable and can be coded in the inpatient setting, when documented at the
time of discharge.
Thank you,
Ana Jack RN, BSN
CDI Specialist
tiger text
Please use your independent medical judgment in providing your response.
[2024-02-12] MEDS: PACERONE 200 MG PO (11:59)
[2024-02-12 12:14] LABS: Glucose - Point of Care 132 mg/dl (70-99)
--- NOTE | 2024-02-12 12:27 | PTCARENOTE ---
Pt assessed.No change in assessment noted.Amiodarone discontinued as ordered.+ liquid BM.
[2024-02-12] MEDS: VANCOCIN 200 IV (13:14)
[2024-02-12] MEDS: FIRVANQ 125 MG PO ×3 (13:23→23:44)
--- NOTE | 2024-02-12 14:31 | WOUNDNOTE ---
YAZMIN RN note: Patient admitted with septic shock, neutropenic fever.
See H&P for complete history. Lives with son.
PMH: Obesity, NIDDM,A FIB-ELIQUIS, CHF,HTN,UTI, Rectal cancer with recent chemo and radiation.
Wound Location and type/assessment: Patient admitted with: Perianal severe excoriation from both Diarrhea and chemo/radiation. Appearing as burn on skin rather than ulcers. Patient states she has had loose stools for last few weeks, suspect
incontinent associated skin damage. Barrier cream in use. Lidocaine topical gel is now on order. RN Alysha assisted with care. Heels and sacrum are intact. Skin folds of groin with milder MASD.
Appetite: poor po intake recently.
Pressure redistribution devices in place: Centrella air with turning schedule, pillow under calves.
Plan: Discussed concerns with pharmacy team in ICU, came up with a plan to use Cholestyramine with Aquaphor then can use lidocaine gel inbtw application prn diarrhea and skin care. Pharmacist will put in orders and confirm with Dr. Edge. Nurse
Alysha updated on care. Updated care plan and will follow as needed.
Note to case management of equipment requested for discharge: TBD.
--- NOTE | 2024-02-12 15:36 | CM ---
CM following re: discharge planning.
Discussed in Rounds, reviewed pt's chart. Per Rounds meeting, wean pressors as able, continue supportive care. PT and OT to evaluate.
Pt lives with son and a daughter 2SH, 2 steps to enter, has 1st floor set up. Pt reports she mostly ambulates with a cane, has a walker and a w/c, known to [facility].
A referral to [facility] made.
D/C plan: home with [facility] and family support. Family to transport at discharge.
CM will follow with discharge plan updates as hospitalization progresses
[2024-02-12] MEDS: SOLU-CORTEF 100 MG IV (15:49)
[2024-02-12] MEDS: HEPARIN 25000 UNITS/250 ML IV (15:54)
--- NOTE | 2024-02-12 16:00 | PTCARENOTE ---
Pt assessed.Phenylephrine titrated up to [address] Avlarado made aware. Stress dose steroids ordered.Heparin gtt initiated as ordered.
[2024-02-12 16:08] LABS: Hematocrit 25.3 % (37.0-47.0); Hemoglobin 8.1 g/dL (12.0-16.0); Mean Corpuscular Hgb 26.2 pg (27.0-31.0); Mean Corpuscular Volume 81.9 fL (81.0-99.0); Platelet Count 71 10^3/uL (130-400); Red Blood Cell Count 3.09 10^6/uL (4.20-5.40); Red Cell Dist. Width 18.4 % (11.5-14.5)
[2024-02-12 16:14] LABS: APTT 43.1 Sec (23.4-35.0)
[2024-02-12 16:16] LABS: White Blood Cell Count 0.7 10^3/uL (4.8-10.8)
[2024-02-12 16:19] LABS: Cortisol, Random 37.4 ug/dl
[2024-02-12 17:28] LABS: Glucose - Point of Care 142 mg/dl (70-99)
[2024-02-12] MEDS: LMX 4 1 APPLIC TOPICAL (18:04)
--- NOTE | 2024-02-12 19:58 | PTCARENOTE ---
rec'd patient. assessment as documented. oriented x3, afib on monitor. on 2L NC, denies SOB. merrill gtt and IVF continue. heparin gtt infusing, PTT due at 2200. pt with poor appetite, PO intake offered. brewer in place. pt repositioned, call chaves within
reach, care ongoing.
[2024-02-12] MEDS: QUESTRAN 4 grams in 100 grams AQUAPHOR 1 APPLIC TOPICAL (20:19)
[2024-02-12 21:36] LABS: Glucose - Point of Care 191 mg/dl (70-99)
[2024-02-12] MEDS: TYLENOL 650 MG PO (21:51)
[2024-02-12] MEDS: LIPITOR 40 MG PO (21:51)
[2024-02-12 22:16] LABS: APTT 72.8 Sec (23.4-35.0)
[2024-02-12] MEDS: SOLU-CORTEF 50 MG IV (23:44)
[2024-02-13] VITALS (51 sets, daily range): BP systolic 83–131; BP diastolic 43–89; PULSE 114–117; O2SAT 100; BMI 37.3
--- NOTE | 2024-02-13 00:53 | PTCARENOTE ---
pt with liquid/mucoid BM x2 this shift. pt c/o severe pain with shaina care, creams applied. otherwise assessment unchanged. call chaves within reach, care ongoing.
--- NOTE | 2024-02-13 04:10 | PTCARENOTE ---
AM labs sent. pt provided liquids overnight, appetite remains poor. repositioned with assistance, cont. with cream to groin and rectum/buttocks. call chaves within reach, care ongoing.
[2024-02-13 04:23] LABS: % Basophils 0.9 % (0-2); % Eosinophils 0.5 % (0-6); % Immature Granulocytes 2.8 % (0-0.5); % Lymphocytes 9.6 % (20.5-51.1); % Monocytes 16.5 % (1.7-9.3); % Neutrophils 69.7 % (42.2-75.2); Absolute Immature Granulocytes 0.1 10^3/uL (0-0.05); Absolute Lymphocytes 0.2 10^3/uL (1.2-3.4); Absolute Monocytes 0.4 10^3/uL (0.1-0.6); Absolute Neutrophils 1.5 10^3/uL (1.4-6.5); Hematocrit 27.3 % (37.0-47.0); Hemoglobin 8.8 g/dL (12.0-16.0); Mean Corp Hgb Conc. 32.2 g/dL (33.0-37.0); Mean Corpuscular Hgb 26.3 pg (27.0-31.0); Mean Corpuscular Volume 81.7 fL (81.0-99.0); Nucleated Red Blood Cells % 3.7 %; Platelet Count 105 10^3/uL (130-400); Red Blood Cell Count 3.34 10^6/uL (4.20-5.40); Red Cell Dist. Width 18.6 % (11.5-14.5)
[2024-02-13 04:32] LABS: APTT 76.8 Sec (23.4-35.0)
[2024-02-13 04:40] LABS: White Blood Cell Count 2.2 10^3/uL (4.8-10.8)
[2024-02-13 04:42] LABS: Vancomycin Random 16.5 ug/ml
[2024-02-13 04:44] LABS: ALT (SGPT) 27 U/L (0-35); AST (SGOT) 18 U/L (14-36); Albumin 2.3 g/dl (3.5-5.0); Alkaline Phosphatase 58 U/L (38-126); Blood Urea Nitrogen 50 mg/dl (7-17); Carbon Dioxide 17 mmol/L (22-30); Chloride 110 mmol/L (98-107); Estimated Creatinine Clearance 26 ml/min; Glucose 209 mg/dl (70-99); Sodium 136 mmol/L (135-145); Total Bilirubin 1.1 mg/dl (0.2-1.3); Total Protein 4.9 g/dl (6.3-8.2); eGFR 25.73
[2024-02-13 04:49] LABS: Potassium 4.4 mmol/L (3.5-5.1)
[2024-02-13] MEDS: FIRVANQ 125 MG PO ×4 (06:12→22:55)
[2024-02-13] MEDS: SOLU-CORTEF 50 MG IV (06:12)
[2024-02-13] MEDS: SYNTHROID 125 MCG PO (06:12)
--- NOTE | 2024-02-13 07:08 | W.PN.INTV ---
Today's Communication / Plan
Recommendations
Weaning down on pressors
ST ongoing, may need cards eval if not improving
PT/OT, OOB--she has pressure sores on her buttocks/deconditioning is a factor
Continue abx per ID
Slow progress
Assessment
-
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
pancytopenic, hypotensive with fevers and renal insufficiency. Patient admitted to ICU for neutropenic fever and sepsis
Septic shock, requiring pressors
UTI, E coli
Neutropenic fever
Pancytopenia, ANC 157
Acute renal insufficiency, creatinine 2.1
History of CKD stage IIIb
History of renal failure July 2021 with
Anal squamous cell cancer, stage III
Diagnosed November 2023, not surgical candidate
Ongoing chemotherapy/radiation at [place]
Follows oncology ([facility])
Atrial fibrillation with rapid ventricular response
On amiodarone
Held for lower GI bleed
s/p recent CV 11/27/23
Moderate MR/TR, mitral stenosis
Per [facility] 11/27/2023
Moderate pulm hypertension, PA systolic pressure 68 per echo September 2022
Conditions present prior to admission
History of congestive heart failure
Tachybradycardia syndrome
Pacemaker placement August 2022
History of stroke 1994
Diabetes
Morbid obesity
Plan/recommendations
Patient with extremely complex medical history: valvular disease, pulm hypertension, difficult to control atrial fibrillation.
She is not on anticoagulation due to recent lower GI bleed
She does have a [employer] pacemaker
Remains on amiodarone drip, Adam-Synephrine--weaning down
UTI noted, E coli+
Abdominal imaging without any focal abnormality
No abdominal pain on exam. Chest x-ray unremarkable
Moving forward
Continue with empiric antibiotics, vancomycin/meropenem. Micafungin added
Follow cultures (blood, urine)
She has a history of ESBL UTI November 2023, resistant to cefepime.
Sensitive to ampicillin/clavulanate, ertapenem, gentamicin, meropenem, Zosyn, Bactrim
Remarkably, lactate is normal
Perianal lesions noted secondary to radiation therapy
ID following
Patient with anal cancer, ongoing chemotherapy/radiation
Oncology following
Stop stress dose steroids at this time.
Not sure whether patient received steroids with her chemotherapy regimen--has SD dosing which we will confirm
Oncology has been consulted
Adam maintained at 55, wean as tolerated
Continue with IV fluids, LR
Recent echocardiogram with normal biventricular function, pulm hypertension noted. Baseline creatinine 1.6
Currently 2.1
Monitor I's and O's
Pancytopenia noted. Maintain active type and screen
Port is currently accessed
Lastly, may require cardiology evaluation, sinus tach ongoing
Patient has Medtronic pacemaker. Digoxin was discontinued in the past due to renal disease
Amiodarone started, remains. May consider transitioning to oral
Patient follows cardiology ([facility])
Consider cardiology evaluation if rate control becomes an issue
Follow blood sugars, insulin sliding scale
Hypoglycemia noted but hemoglobin A1c 7.8
Ensure supplements
DVT prophylaxis: Sequential teds
GI prophylaxis: Protonix
PT/OT, OOB
Presently, full CODE STATUS noted
Diagnostic Data
CXR 02/10/24- No acute cardiopulmonary process.
Duplex 02/12/24- 1. No evidence of deep venous thrombosis in the bilateral lower extremities as described above.
CT Abd 02/10/24- No clear evidence for an acute process in the abdomen or pelvis given the significant limitations of the lack of oral and intravenous contrast. Soft tissue thickening at the level of the anus compatible with the patient's known anal
carcinoma.
PET CT 01/15/24- Face and neck: There are no areas of abnormal FDG avidity in the face or neck. There is no cervical lymphadenopathy
CHEST: There are no areas of abnormal FDG avidity in the chest. There is small-moderate right pleural effusion with associated compressive atelectasis at the right lung base
There is mild hazy and groundglass parenchymal airspace disease in the upper portions of both lungs.
Abdomen and pelvis: There is a 6.5 cm FDG avid rectal neoplasm measuring 17.4 SUV max consistent with patient's known malignancy
There is no evidence of metastatic disease or metastatic adenopathy in the abdomen or pelvis.
Osseous: There is degenerative disc disease at L5-S1. There is no evidence of FDG avid metastasis in the regional osseous system.
[facility]ION 11/27/23- CONCLUSIONS: Normal left ventricular size and function. Left ventricular ejection fraction is 55-60%. Biatrial enlargement No left atrial appendage thrombus. Dense mitral annular calcification. Thickened restricted mitral valve
leaflets. Mild to moderate mitral regurgitation. Mild to moderate tricuspid regurgitation. Compared to prior echo from Sep 2022, prior echo had EF 50%with known moderate MS with mean mitral gradient 6 mmHg.
-----
Critical Care time 36 mins -- The patient is admitted for acute critical illness for the treatment of vital organ failure and/or prevention of further life-threatening conditions. Total care includes time spent in review of history, physical exam,
medications, hemodynamic/ventilator parameters, laboratory data, imaging and discussion with house staff, pharmacy, respiratory therapy, jumpbasting lining baster, and nursing.
Subjective Dataa
Subjective Data
Date of Service:
Date of Service: February 13, 2024
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
Subjective:
Doing well, remains on low dose pressor/weaning down
Still has tachycardia but this appears baseline
Deconditioned appearing
No new complaints
Objective Data
Data Reviewed
Vital Signs / I&O / Oxygen:
Vital Signs
Temp Pulse Resp BP Pulse Ox
99.1 F 109 15 114/74 99
02/13/24 03:38 02/13/24 07:00 02/13/24 07:00 02/13/24 07:00 02/13/24 07:00
Intake and Output
02/12/24 02/13/24 02/14/24
06:59 06:59 06:59
Intake Total 3526.3 / 3658.0 3784.7 / 3784.7
Output Total 1035 / 1035 940 / 940
Balance 2491.3 / 2623.0 2844.7 / 2844.7
SaO2 99
Nasal Cannula flow liters per 2
minute
Physical Exam
General: Comfortable, Other (Upper extremity midline ) and Other (Anterior chest port)
HEENT: Normocephalic, Anicteric and Moist Mucous Membranes
Cardiovascular: S1-S2, Regular Rhythm, Murmur (n), Rub (n), Peripheral Edema (n) and Calf Tenderness (n)
Respiratory: Clear, Wheeze (n), Crackles (n), Rhonchi (n) and Non-Labored Respirations
GI: Soft, Non Distended and Non Tender
Neurology: Awake, Alert, Oriented, AO x 3, No Motor Deficits and Depressed (flat affect)
Skin: Good Color (Mild pallor), Cyanosis (n), Jaundice (n) and Rash
Labs/Micro/Reports
Lab Data
02/13/24 03:59
02/13/24 03:59
Laboratory Results
02/12/24 02/12/24 02/13/24
15:48 21:59 03:59
APTT 43.1 H 72.8 H 76.8 H
Microbiology
02/10/24 16:10 Blood/Venous Blood Culture - Preliminary
No Growth in 48 hours- Final report to follow
02/10/24 16:10 Blood/Venous Blood Culture - Preliminary
No Growth in 48 hours- Final report to follow
02/11/24 09:55 Nose MRSA Screen - Final
No Methicillin Resistant Staphylococcus aureus isolated.
02/10/24 18:02 Urine Urine Culture - Preliminary
Escherichia coli
02/12/24 03:59 Feces/Stool C. difficile GDH Antigen & Toxins - Final
C. difficile antigen positive, toxin negative.
Clostridium difficile present, but toxin not detected.
Patient may be a carrier, colonized with nontoxinogenic
strain or the level of toxin in sample is below detection
limits. This information should be used in conjunction with
the patient's clinical history.
02/10/24 15:26 Nasal Swab Influenza Types A & B (MAKENNA) - Final
Negative for Influenza A & B, NAAT
Negative results must be combined with clinical observations
and patient history.
Nucleic Acid Amplification test (NAAT)performed on the
[employer] platform.
--- NOTE | 2024-02-13 07:28 | W.PN.HOSP.TC ---
Addendum entered and electronically signed by Liam Sykes MD 02/13/24 11:32:
I saw and evaluated the patient. I reviewed the resident�s note and agree with findings and plan as documented in the resident�s note.
Patient reports diarrhea without melena or hematochezia.
Gen: NAD, AAOx3.
Eyes: EOMI, PERRLA, no scleral icterus.
Neck: supple.
CV: tachycardic, irreg/irreg, +S1/S2, no m/r/g.
Resp: CTAB, no rales, wheezes, or rhonchi.
Abd: +BS, soft, NT, ND
Skin: No rashes.
Neuro: CN 2-12 intact, non-focal.
Psych: Normal mood and affect.
02/12/24 03:59 Feces/Stool Salmonella/Shigella Culture - Preliminary
Culture in Progress
02/12/24 03:59 Feces/Stool Campylobacter Culture - Preliminary
Culture in Progress
02/10/24 18:02 Urine Urine Culture - Final
Escherichia coli - ESBL
02/10/24 16:10 Blood/Venous Blood Culture - Preliminary
No Growth in 48 hours- Final report to follow
02/10/24 16:10 Blood/Venous Blood Culture - Preliminary
No Growth in 48 hours- Final report to follow
02/11/24 09:55 Nose MRSA Screen - Final
No Methicillin Resistant Staphylococcus aureus isolated.
02/12/24 03:59 Feces/Stool C. difficile GDH Antigen & Toxins - Final
C. difficile antigen positive, toxin negative.
Clostridium difficile present, but toxin not detected.
Patient may be a carrier, colonized with nontoxinogenic
strain or the level of toxin in sample is below detection
limits. This information should be used in conjunction with
the patient's clinical history.
02/10/24 15:26 Nasal Swab Influenza Types A & B (MAKENNA) - Final
Negative for Influenza A & B, NAAT
Negative results must be combined with clinical observations
and patient history.
Nucleic Acid Amplification test (NAAT)performed on the
[employer] platform.
Septic shock and neutropenic fever:
-Fevers resolved
-Continue IV meropenem/vancomycin/micafungin as per infectious disease
-cont PO Vanco with C diff Ag POS
-wean vasopressin as tolerated
Afib with RVR:
-currently on PO Amio, heparin gtt
-c/s cardiology
Non-AG met acidosis, OSMANY:
-baseline Cr 1.6
-will start PO HCO3-
Total critical care time spent = 43min
Original Note:
Today's Communication/Plan
-
ABX, IV fluids pain management
Assessment / Plan
Assessment / Plan
73-year-old female with anal cancer on chemotherapy admitted with generalized weakness. Also had several days of poor appetite and poor p.o. intake. She had decreased urine output
Septic Shock:
Off pressors
Neutropenic fever.
CXR: No acute cardiopulmonary process,
Blood cxs x2: No growth in 48 hours
Urinalysis unremarkable, recent hx of Ecoli (ESBL). Urine cultures positive for E. coli.
C. difficile antigen positive toxin negative. Oral vancomycin started stool studies pending
Continue p.o. vancomycin + IV vancomycin (skin excoriation). Consider switch from meropenem to other agent for E. coli UTI
Appreciate ID input
Anal cancer:
-Receives chemotherapy and radiation with [facility]. Last chemo 1-2 weeks ago, last radiation 1 week ago
-Pain control
Pancytopenia
Likely secondary to chemotherapy. Leukopenia and thrombocytopenia improving
-Anemia stable. Will transfuse as needed
-Appreciate heme-onc input
Afib
with RVR on presentation
-Continue heparin, will convert to oral anticoagulant when patient is more stable.
-Converted to oral amiodarone
OSMANY on CKD3b
Oliguria, Cr 2.0. Baseline 1.2 from 11/2023
FeNa 0%. Prerenal, secondary to shock
-Continue IVF
Hypokalemia:
Repleted, resolved
Hypomagnesemia:
Repleted, resolved, monitor
Hypertension:
Hold home antihypertensive for shock
Diabetes:
Hold Home meds
-ISS
Hyperlipidemia
-Continue Statin
Hx of CHF:
-Metoprolol and furosemide held for shock
Pacemaker placement 2022
Hx of Stroke
Obesity
History of ESBL UTI
GERD/gastritis-add PPI
History of right pleural effusion with thoracentesis in the past
History of lower GI bleed while on anticoagulation
History of prior intracranial hemorrhage-details unclear
Hypoalbuminemia
DVT prophylaxis: SCDs
Code Status; Full Code
Anticipated Discharge: 24 - 48 hours
Subjective/Interval History
-
Date of Service: February 13, 2024
Poor appetite but will make effort to eat
Severe rectal pain
Patient subjectively feels better
Objective Data
-
Labs:
Laboratory Results
02/12/24 02/13/24 02/13/24
21:59 03:59 11:00
WBC 2.2 L*
Hgb 8.8 L
Hct 27.3 L
Plt Count 105 L D
APTT 72.8 H 76.8 H Pending
Sodium 136
Potassium 4.4
Chloride 110 H
Carbon Dioxide 17 L
BUN 50 H
Creatinine 2.0 H
Glucose 209 H
Calcium 8.0 L
Total Bilirubin 1.1
AST 18
ALT 27
Alkaline Phosphatase 58
Vital Signs:
Vital Signs
Temp Pulse Resp BP Pulse Ox
99.1 F 109 15 114/74 99
02/13/24 03:38 02/13/24 07:00 02/13/24 07:00 02/13/24 07:00 02/13/24 07:00
I&O
02/12/24 02/13/24 02/14/24
06:59 06:59 06:59
Intake Total 3526.3 / 3658.0 3784.7 / 3912.2 127.5 / 127.5
Output Total 1035 / 1035 940 / 940
Balance 2491.3 / 2623.0 2844.7 / 2972.2 127.5 / 127.5
Review of Systems
-
History Source: Patient
Constitutional: Reports Weakness
Respiratory: Reports No Symptoms; Denies Cough or Trouble Breathing
Cardiac: Reports No Symptoms; Denies Chest Pain
Abdomen/GI: Reports No Symptoms; Denies Abdominal Pain, Nausea or Vomiting
Physical Exam
-
HEENT: Normocephalic and Atraumatic
Respiratory: Clear to Auscultation; Negative Wheezes, Rales, Rhonchi or Crackles
Cardiac: S1/S2 and Irregular Rhythm; Negative Murmur, Rub or Calf Tenderness
GI: Soft, Nontender, Nondistended and Normal Bowel Sounds
Genito-urinary: Clear Urine and Rogers
Musculoskeletal: No Clubbing, No Cyanosis and No Edema
Skin: Warm, Dry and Rash (redness in sacral area)
Neuro: Awake, Alert and Oriented
Psych: Calm
[2024-02-13] MEDS: VITAMIN B-12 1000 MCG PO (07:42)
[2024-02-13] MEDS: FLOMAX 0.4 MG PO (07:42)
[2024-02-13] MEDS: PROTONIX 40 MG PO (07:42)
[2024-02-13] MEDS: PACERONE 200 MG PO (07:42)
[2024-02-13] MEDS: VITAMIN D3 (cholecalciferol) 25 MCG PO (07:42)
[2024-02-13 07:50] LABS: Glucose - Point of Care 224 mg/dl (70-99)
[2024-02-13] MEDS: NOVOLOG FLEXPEN-LOW RESISTANCE 2 UNITS SC (07:52)
[2024-02-13] MEDS: QUESTRAN 4 grams in 100 grams AQUAPHOR 1 APPLIC TOPICAL ×2 (07:53→19:51)
--- NOTE | 2024-02-13 08:29 | PHA.VAN.FU ---
Vancomycin Assessment / Plan
- Assessment
Renal Function: Stable
WBC's are: Trending Up
Neutropenia: ANC = 1500
In the past 24 hrs, patient has been: Afebrile
Concomitant Antimicrobials: meropenem, micafungin, vanco PO
- Assessment - Therapeutic Drug Monitoring
Random Level: 16.5 - drawn ~14.5H after previous dose of 1000mg
- Dosing Plan
Dosing by Level: Re-dose today (Vanc 1000mg)
Dosing Comments: re-dose today but may require prolonged interval based on half-life >24H
- Monitoring Plan
Random Level: 02/13 0600
- Follow Up
Pharmacy will continue to follow.
Vancomycin Follow UP
- -
Patient Age: 73
Patient Sex: Female
Vancomycin Day #: 4
Indication: Neutropenic Fever
Requesting Provider: Dr. Howell / [place]
Pertinent Antimicrobial Allergies:
aulfamethoxazole/trimethoprim - hypotension
Height / Weight:
Height 5 ft 2 in
Actual Weight 92.5 kg
IBW in k.1
Adjusted BW in k.5
Pertinent Past Medical History: BMI ~36, CKD (baseline SCR ~1.2), DM, Anal cancer
- Vital Signs / Lab Results
Temp Pulse Resp BP Pulse Ox
98.0 F 110 15 111/73 99
02/13/24 07:52 02/13/24 07:42 02/13/24 07:00 02/13/24 07:42 02/13/24 07:00
Lab Results - Hematology
02/10/24 02/11/24 02/12/24
16:04 03:03 03:57
WBC 0.4 L* 0.3 L* 0.5 L*
02/12/24 02/13/24
15:48 03:59
WBC 0.7 L* 2.2 L*
Lab Results - Chemistry
02/10/24 02/11/24 02/12/24
16:04 03:03 03:57
BUN 44 H 42 H 46 H
Creatinine 2.1 H 2.1 H 2.1 H
Estimated Creat Clear
Albumin 3.2 L 2.7 L 2.5 L
02/13/24
03:59
BUN 50 H
Creatinine 2.0 H
Estimated Creat Clear 26
Albumin 2.3 L
02/10/24 02/10/24 02/10/24
16:04 20:30 22:03
Lactic Acid 1.0 Cancelled Cancelled
02/11/24 02/11/24 02/11/24
02:03 06:03 09:55
Lactic Acid Cancelled Cancelled 1.5
Microbiology Results
02/10/24 16:10 Blood Culture - Preliminary
Blood/Venous No Growth in 48 hours- Final report to follow
02/10/24 16:10 Blood Culture - Preliminary
Blood/Venous No Growth in 48 hours- Final report to follow
02/11/24 09:55 MRSA Screen - Final
Nose No Methicillin Resistant Staphylococcus aureus isolated.
02/10/24 18:02 Urine Culture - Preliminary
Urine Escherichia coli
02/12/24 03:59 C. difficile GDH Antigen & Toxins - Final
Feces/Stool C. difficile antigen positive, toxin negative.
Clostridium difficile present, but toxin not detected.
Patient may be a carrier, colonized with nontoxinogenic
strain or the level of toxin in sample is below detection
limits. This information should be used in conjunction with
the patient's clinical history.
Therapeutic Drug Monitoring
Random Vancomycin 16.5 ug/ml 02/13/24 03:59
[2024-02-13] MEDS: MYCAMINE 105 MG IV (09:21)
[2024-02-13] MEDS: NEO-SYNEPHRINE 250 IV (09:25)
[2024-02-13] MEDS: MERREM 500 MG IV ×2 (09:29→21:34)
[2024-02-13] MEDS: STERILE WATER FOR INJECTION 10 ML IV ×2 (09:29→21:33)
[2024-02-13] MEDS: TYLENOL 650 MG PO (09:36)
[2024-02-13] MEDS: LMX 4 1 APPLIC TOPICAL (09:36)
--- NOTE | 2024-02-13 09:54 | W.PN.ID1 ---
Date of Service
Date of Service: February 13, 2024
Today's Communication
continue meropenem
continue vancomycin another day while following blood cultures
continue micafungin for now
follow hemodynamics
Assessment / Plan
Shock likely Septic- ongoing
Neutropenic Fever - resolved
Anal Cancer on chemotherapy with open excoriations around the anus
OSMANY on CKD
Pacemaker
- blood cultures x2 in progress - no growth to date
- 02/09 urine culture 100 K ESBL E coli
- mrsa screen negative
- will continue vancomycin to at least 72 hours while following blood cultures in this neutropenic patient with open skin lesions, ongoing shock
- continue meropenem - renally dosed
- continue vancomycin - has open lesions around the rectum
- conntinue micafungin for today -
- follow clinically
Chief Complaint
-: Clinical Sepsis (shock) and Other (neutropenic fever)
Subjective / Review of Systems
afebrile
continues to require pressors
wbc now improved
hgb 8.8
plt 105
anc now 1500
cr 2.0
urine culture esbl e coli
does complain of some suprapubic pressure now
Vital Signs / Physical Exam
Vital Signs
Vital Signs
Temp Pulse Resp BP Pulse Ox
98.0 F 110 15 111/73 99
02/13/24 07:52 02/13/24 07:42 02/13/24 07:00 02/13/24 07:42 02/13/24 07:00
Physical Exam
Constitutional: No Acute Distress and Chronically Ill
Cardiovascular: Regular Rate and S1/S2; Negative Murmur or Rub
Pulmonary: Clear and Symmetric; Negative Wheezes or Rales
Gastrointestinal: Soft, Non Tender, Non Distended and Normal Bowel Sounds
Skin: Warm and Dry; Negative Rash or Jaundice
Objective Data
Lab Data
Lab Results
02/13/24 03:59
02/13/24 03:59
PT 23.1 Sec (11.4-14.6) H 02/11/24 03:03
INR 2.02 02/11/24 03:03
APTT 76.8 Sec (23.4-35.0) H 02/13/24 03:59
Estimated Creat Clear 26 ml/min 02/13/24 03:59
Lactic Acid 1.5 mmol/L (0.7-2.0) 02/11/24 09:55
Total Bilirubin 1.1 mg/dl (0.2-1.3) 02/13/24 03:59
AST 18 U/L (14-36) 02/13/24 03:59
ALT 27 U/L (0-35) 02/13/24 03:59
Alkaline Phosphatase 58 U/L (38-126) 02/13/24 03:59
Most recent labs reviewed.
Micro Results:
02/10/24 18:02 Urine Culture - Final
Urine Escherichia coli - ESBL
02/10/24 16:10 Blood Culture - Preliminary
Blood/Venous No Growth in 48 hours- Final report to follow
02/10/24 16:10 Blood Culture - Preliminary
Blood/Venous No Growth in 48 hours- Final report to follow
02/11/24 09:55 MRSA Screen - Final
Nose No Methicillin Resistant Staphylococcus aureus isolated.
02/12/24 03:59 C. difficile GDH Antigen & Toxins - Final
Feces/Stool C. difficile antigen positive, toxin negative.
Clostridium difficile present, but toxin not detected.
Patient may be a carrier, colonized with nontoxinogenic
strain or the level of toxin in sample is below detection
limits. This information should be used in conjunction with
the patient's clinical history.
02/12/24 03:59 Salmonella/Shigella Culture - Pending
Feces/Stool Campylobacter Culture - Pending
Shiga Toxin Test - Pending
02/10/24 15:26 Influenza Types A & B (MAKENNA) - Final
Nasal Swab Negative for Influenza A & B, NAAT
Negative results must be combined with clinical observations
and patient history.
Nucleic Acid Amplification test (NAAT)performed on the
[employer] platform.
[2024-02-13] MEDS: VANCOCIN 200 IV (10:40)
[2024-02-13 11:36] LABS: APTT 73.9 Sec (23.4-35.0)
[2024-02-13 11:55] LABS: Glucose - Point of Care 326 mg/dl (70-99)
--- NOTE | 2024-02-13 12:00 | PTCARENOTE ---
Received pt in bed, c/o rectal pain, rectum macerated, pt cleaned and repositioned, ointment applied, see MAR. Assisted pt OOB to chair. HR 150's briefly w/ activity, recovered to low 110's while resting in bed. PT/OT orders placed by . Pt
continues w/ incontinence of loose/mucoid stool. Pt ate 100% on breakfast, drank Ensure. IVFs capped per MD. At change of shift, Adam @ 55 mcg/min, decreased to 35mcg per protocol, will continue to monitor and wean as tolerates. Heparin gtt @
1100units/hr, per protocol, infusing via R Midline. R SQ port w/ KVO and ABX, good blood return. 2L NC, LSCTA, sating 97-99%. Full assessment as documented. Will continue to monitor.
--- NOTE | 2024-02-13 12:16 | CON.CAR ---
Addendum entered and electronically signed by Marco Zelaya MD 02/13/24 14:38:
Patient seen and examined in collaboration with PGY 2 resident; agree with below.
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
Cardiology consulted for atrial fibrillation with RVR.
-Examination: Irregular rate and rhythm, tachycardic; compensated on examination.
-Will reload with amiodarone; give 150 mg IV now, then placed on a drip for 24 hours.
-Will likely then placed on amiodarone 400 mg PO BID tomorrow.
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
-Will follow.
Original Note:
Consultation
Consultation Request
Date/Time Consultation Requested: 02/13/2024-11:29 AM.
Date/Time Consultation Performed: 02/13/2024-1 PM
Requesting Provider: Dr. Onel Wheeler
Performing Provider: Wendi Holder for Marco Gonzalez
Reason for Consultation: A-fib with RVR
Medical History
-
Chief Complaint: Generalized fatigue, subjective fevers and chills that improved,SOB
History of Present Illness:
73-year-old female with PMHx significant for squamous cell carcinoma of the anus, s/p radiation and chemotherapy, A-fib with RVR s/p cardioversion on long-term anticoagulation, tachycardia-bradycardia syndrome s/p dual chamber pacemaker, CVA x 2,
CKD stage IIIb, subdural/subarachnoid hemorrhage, GERD, type 2 diabetes mellitus, hypertension, hyperlipidemia, chronic heart failure (HFpEF) presents to the emergency room 3 days ago with 1 week onset of generalized fatigue subjective fevers and
chills and shortness of breath x 1 week. Currently patient's fever chills and fatigue improved.
Patient always had baseline dyspnea on exertion, could not walk 1 block without getting short of breath, but over the last 1 week patient found it difficult to walk from her recliner to the restroom. This was accompanied by fatigue fevers and
chills. Patient also reports to be sleeping in the recliner as her baseline but recently has been propping up herself with pillows. However following hospital admission 3 days ago her symptoms improved. Currently she has been experiencing
palpitations.
She denies having syncopal episodes, PND, lightheadedness, dizziness.
Past Medical History
Past Medical History: CHF, HTN, Hypercholesterolemia, Hypothyroidism, NIDDM, Renal Failure and Other (Anal cancer s/p radiation and chemotherapy, A-fib with RVR s/p cardioversion on long-term anticoagulation with Eliquis, tachycardia-bradycardia
syndrome s/p dual-chamber pacemaker, CVA x 2, subdural/subarachnoid hemorrhage,)
Past Surgical History: None
Social History
Tobacco: Non-Smoker
Alcohol: Occasional
Drug: None
Living: With Family (Lives with son and daughter, reports to sleep in hallway, children have issues with law, significant stress at home.)
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
Allergies / Home Medications
Allergy/AdvReac Type Severity Reaction Status Date / Time
sulfamethoxazole Allergy hypotension Verified 11/20/23 18:43
[From Bactrim]
trimethoprim [From Bactrim] Allergy hypotension Verified 11/20/23 18:43
�Medication �Instructions �Recorded �Confirmed �Type
cholecalciferol (vitamin D3) 25 1,000 units PO DAILY Supplement 07/31/21 02/11/24 History
mcg (1,000 unit) tablet
tamsulosin 0.4 mg capsule 0.4 mg PO DAILY Urinary issue 07/31/21 02/11/24 History
atorvastatin 40 mg tablet 40 mg PO HS High cholesterol 09/28/22 02/11/24 History
levothyroxine 125 mcg tablet 125 mcg PO DAILY Thyroid 09/28/22 02/11/24 History
apixaban 5 mg tablet (Eliquis) 5 mg PO BID #60 tabs 10/01/22 02/11/24 Rx
furosemide 40 mg tablet 40 mg PO DAILY #30 tabs 10/01/22 02/11/24 Rx
potassium chloride 20 mEq 20 meq PO HS Electrolyte Repletion 12/02/22 02/11/24 History
tablet,extended release
amiodarone 200 mg tablet 200 mg PO DAILY #30 tabs 12/04/23 02/11/24 Rx
cyanocobalamin (vitamin B-12) 1,000 mcg PO DAILY #30 tabs 12/04/23 02/11/24 Rx
1,000 mcg tablet
glipizide 5 mg tablet 5 mg PO DAILY #30 tabs 12/04/23 02/11/24 Rx
hydrocortisone acetate 25 mg 25 mg ND HS #7 ea 12/04/23 02/11/24 Rx
rectal suppository
insulin degludec 100 unit/mL (3 15 unit (0.15 mL) SQ HS Diabetes 12/04/23 02/11/24 Rx
mL) subcutaneous pen (Tresiba #0 mL
FlexTouch U-100 insulin)
metoprolol succinate 25 mg 25 mg PO BID #60 tabs 12/04/23 02/11/24 Rx
tablet,extended release 24 hr
polyethylene glycol 3350 17 gram 17 g PO DAILY #30 ea 12/04/23 02/11/24 Rx
oral powder packet (HealthyLax)
Review of Systems
-
History Source: Patient
Constitutional: Fatigue
Respiratory: Trouble Breathing
Cardiac: Palpitations
Abdomen/GI: No Symptoms
Musculoskeletal: Muscle Pain
Skin: No Symptoms
Neurological: No Symptoms
Hematologic/Lymphatic: No Symptoms
Physical Exam
Vital Signs
Temp Pulse Resp BP Pulse Ox
96.9 F L 127 13 99/60 99
02/13/24 11:47 02/13/24 10:30 02/13/24 10:30 02/13/24 10:30 02/13/24 10:56
Lab Results
07/09/24 03:59
02/13/24 03:59
Troponin I < 0.012 ng/ml 02/10/24 16:04
Physical Exam
General: Comfortable (On mid flow nasal cannula)
HEENT: Normocephalic and Anicteric
Respiratory: Clear; Negative Wheezes, Crackles or Rhonchi
Cardiac: S1/S2 and Irregular Rhythm; Negative Murmur, Rub or Peripheral Edema
GI: Soft, Non Tender, Non Distended and Normal Bowel Sounds
Musculoskeletal: No Edema
Neuro: AO x 3
Psych: Calm
Impression / Plan
-
background -
73-year-old female known to cardiology service in the past for persistent A-fib s/p cardioversion on Eliquis, tachycardia - bradycardia syndrome s/p dual-chamber pacemaker placement-2022, chronic HFpEF, mitral stenosis, prior CVA-1994, 2005,
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
fevers and chills x 1 week-found to have pancytopenia and neutropenic fever, currently in septic shock. Cardiology consulted for A-fib with RVR. (known to Dr. Hsu, her primary toy consultant),
Impression -
Septic shock -
-Requiring pressors, Adam-Synephrine weaning down.
AFib with RVR -
-Long hx of AFib, came in with sinus rhythm.
-Currently telemetry findings significant for A-fib with RVR, with aberrations.
-Will give a bolus of amiodarone 150 mg, and then start her on amiodarone drip.
-Monitor for hypotension when on amiodarone drip may need Adam-Synephrine dose titration..
-Underwent cardioversion 11/27/2023.
-Anticoagulation-currently on heparin drip.
-On rhythm control with amiodarone 200 once daily and anticoagulation with Eliquis at home.
Chronic HFpEF -
-Physical examination findings not consistent for decompensation.
-Hence currently stable. Does not need an echocardiogram as of today.
-Will reevaluate if necessary.
-Given septic shock-Home GDMT-furosemide, metoprolol succinate on hold.
-Not on any GDMT-during current hospitalization (SGLT2, MRA, loop diuretics, beta-blockers.)
-Monitor weight, I&O.
Systemic hypertension-
-Home antihypertensive medications-furosemide 40 mg, metoprolol succinate 25 twice a day on hold.
Tachybradycardia syndrome-
-S/P dual chamber PPM 12/05/2022
Pancytopenia
CKD3b
Type II DM
Squamous cell carcinoma of the anus
History of CVA x 2
History of ESBL UTI
GERD
History of right pleural effusion s/p thoracocentesis in the past.
Subjective-
Patient reports to experience occasional palpitations X 2 days.
Data reviewed-
EKG-02/10/2024-atrial fibrillation with RVR.
Telemetry-02/13/20243557-[id number] heart rate 102, A-fib with RVR with some aberrations.
Echocardiogram-11/27/2023-LVEF 55 to 60%, biatrial enlargement, mitral annulus calcification with mitral stenosis, mild to mod MR, TR.
11/27/2023-s/p cardioversion.
12/05/2022-[employer] dual chamber pacemaker placement.
Data Reviewed
-
EKG: Tracing Personally Visualized and interpreted
CT Scan: Image Personally Visualized and interpreted
Medical Tests (Nuc Med, Echo etc): Image Personally Visualized and interpreted
Labs: Labs Reviewed by me
--- NOTE | 2024-02-13 12:27 | W.PN.ONC ---
Today's Communication / Plan
-
Neutropenia has resolved. Platelets also continue to rise. No objections to resuming Eliquis.
I am concerned about her overall condition. With anal cancer, this is to an extent are best shot at achieving a cure. It is important not to interrupt chemotherapy and radiation therapy. If she were to go to a rehab facility, that might happen.
In addition, her radiation is at [facility]. I will look into potential transfer either to [facility] or [facility].
Impression
Impression
sepsis - unclear etiology
neutropenic fever
anal cancer -s/p mitomycin C/ infusional 5FU 01/28 - 02/01 - ongoing XRT
afib
anemia
thrombocytopenia
OSMANY on CKD
Plan
Plan
1. Sepsis / neutropenic fever
-in ICU - direct care professional managing
-cultures pending. BCx NTD, UA fairly unremarkable (trace LE)
-antibiotics as per ID
- G-CSF commonly held with current regimen due to concomitant radiation however this is not absolute contraindication. Pt clinically stable at this time. therefore will continue to hold.
2. Anal cancer s/p mitomycin C/ 5FU - 01/28 - 02/01 - w/ ongoing XRT
-component of cytopenias are likely related to recent chemotherapy administration
-monitor CBC closely
-w/ patient being critically ill - XRT on hold (gets at [facility])
-cont supportive care
- thrombocytopenia improving with plts 52k now. Ok to restart stroke ppx AC with hx of afib at this time from hematological standpoint. Favor use of Lovenox vs. heparin gtt while in pt/ICU then transition to eliquis once more stable.
Will continue to follow with you.
Subjective/Objective
Subjective/Objective
She is feeling about the same. She remains quite weak. Examination is unchanged.
Vital Signs:
Vital Signs
Temp Pulse Resp BP Pulse Ox
96.9 F L 127 13 99/60 99
02/13/24 11:47 02/13/24 10:30 02/13/24 10:30 02/13/24 10:30 02/13/24 10:56
Lab Results:
Laboratory Data
WBC 2.2 10^3/uL (4.8-10.8) L* 02/13/24 03:59
Hgb 8.8 g/dL (12.0-16.0) L 02/13/24 03:59
Plt Count 105 10^3/uL (130-400) L D 02/13/24 03:59
PT 23.1 Sec (11.4-14.6) H 02/11/24 03:03
INR 2.02 02/11/24 03:03
APTT 73.9 Sec (23.4-35.0) H 02/13/24 11:09
eGFR 25.73 02/13/24 03:59
[2024-02-13] MEDS: NOVOLOG FLEXPEN-LOW RESISTANCE SC (12:58)
[2024-02-13] MEDS: NOVOLOG FLEXPEN-MODERATE RESISTANCE 9 UNITS SC ×2 (12:58→17:34)
[2024-02-13] MEDS: SODIUM BICARBONATE 650 MG PO ×3 (12:58→21:33)
[2024-02-13] MEDS: CORDARONE 103 MG IV (13:52)
[2024-02-13] MEDS: CORDARONE 518 MG IV (14:08)
[2024-02-13] MEDS: NOVOLIN N vial 0.1 UNITS SC (14:49)
[2024-02-13 15:03] LABS: Glucose - Point of Care 415 mg/dl (70-99)
[2024-02-13] MEDS: HEPARIN 25000 UNITS/250 ML IV (15:14)
[2024-02-13 15:50] LABS: Glucose 372 mg/dl (70-99)
--- NOTE | 2024-02-13 16:10 | PTCARENOTE ---
@ 1400 Amio bolus given, followed by gtt started @ 1mg/min 33.3. HR now 99-110's A fib. Adam weaned to off, however BP dropped 83/53 at this time. Adam restarted @ 25mcg/min. Will continue to monitor. Pt remained OOB from 0800 until 1500, working w/
PT/OT in the room.
--- NOTE | 2024-02-13 16:15 | PTCARENOTE ---
Dr Scott made aware pt's BS is 372, 10 units NPH had been ordered and given, NovoLog SS increased to moderate and 15 units Lantus added for tonight.
--- NOTE | 2024-02-13 16:24 | CM ---
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
to [facility]. Will send referral to [facility] to see if they would accept patient.
Plan; Possible transfer to [facility] or [facility].
[2024-02-13 17:45] LABS: Glucose - Point of Care 391 mg/dl (70-99)
--- NOTE | 2024-02-13 20:16 | PTCARENOTE ---
Received patient AAOx3, following commands, pain at acceptable level. Trace generalized anasarca, +1 bilateral lower extremity. BP 90s-100s/50s-60s. Normothermic, SCDs on, heparin gtt ongoing per order. On 2 liters nasal cannula, saturating 100%,
lung sounds diminished throughout. Abdomen soft, round, obese, hypoactive bowel sounds. Rogers in place draining yellow urine. MASD on groin and rectum. Amio gtt ongoing through right subcutaneous port, heparin and neosynephrine gtt ongoing through
midline per order. Call chaves within reach.
[2024-02-13] MEDS: LIPITOR 40 MG PO (21:33)
[2024-02-13] MEDS: LANTUS 0.15 UNITS SC (21:34)
[2024-02-13] MEDS: NOVOLOG FLEXPEN 10 UNITS SC (21:47)
[2024-02-13 21:52] LABS: Glucose - Point of Care 327 mg/dl (70-99)
[2024-02-14] VITALS (32 sets, daily range): BP systolic 78–122; BP diastolic 53–87; PULSE 115; BMI 39.0
--- NOTE | 2024-02-14 00:38 | PTCARENOTE ---
Mouth care and denture care done. Patient ate about 55% of dinner. Covered with insulin for HS check. Otherwise patient assessment unchanged from previous, call chaves within reach.
--- NOTE | 2024-02-14 04:35 | PTCARENOTE ---
Patient assessment unchanged from previous, sleeping comfortably. Call chaves within reach.
[2024-02-14] MEDS: SYNTHROID 125 MCG PO (05:42)
[2024-02-14] MEDS: FIRVANQ 125 MG PO ×2 (05:43→20:47)
[2024-02-14 06:09] LABS: Hematocrit 25.5 % (37.0-47.0); Hemoglobin 8.3 g/dL (12.0-16.0); Mean Corp Hgb Conc. 32.5 g/dL (33.0-37.0); Mean Corpuscular Hgb 25.9 pg (27.0-31.0); Mean Corpuscular Volume 79.7 fL (81.0-99.0); Mean Platelet Volume 11.2 fL (7.4-10.4); Platelet Count 118 10^3/uL (130-400); Red Cell Dist. Width 18.2 % (11.5-14.5)
--- NOTE | 2024-02-14 06:18 | PTCARENOTE ---
CHG bath done, brewre care done, gown and sheets changed. Repositioned, labs sent.
[2024-02-14 06:20] LABS: APTT 89.8 Sec (23.4-35.0)
[2024-02-14 06:27] LABS: Blood Urea Nitrogen 55 mg/dl (7-17); Calcium 7.8 mg/dl (8.4-10.2); Carbon Dioxide 19 mmol/L (22-30); Chloride 105 mmol/L (98-107); Estimated Creatinine Clearance 27 ml/min; Glucose 208 mg/dl (70-99); Sodium 130 mmol/L (135-145); eGFR 25.73
[2024-02-14 06:33] LABS: Vancomycin Random 19.6 ug/ml
--- NOTE | 2024-02-14 07:14 | W.PN.INTV ---
Today's Communication / Plan
Recommendations
Doing well, off pressors
Transition amio to oral, can transition to Eliquis as well
PT/OT, continued
Tolerating diet, will adjust insulin requirements today
Abx per ID
Discussions with care team regarding transfer to [facility], we will sign off upon transfer
Assessment
-
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
pancytopenic, hypotensive with fevers and renal insufficiency. Patient admitted to ICU for neutropenic fever and sepsis
Septic shock, improving
UTI, E coli
Neutropenic fever
Pancytopenia, ANC 157
Acute renal insufficiency, creatinine 2.1
History of CKD stage IIIb
History of renal failure July 2021 with
Anal squamous cell cancer, stage III
Diagnosed November 2023, not surgical candidate
Ongoing chemotherapy/radiation at [place]
Follows oncology ([facility])
Atrial fibrillation with rapid ventricular response
On amiodarone
Held for lower GI bleed
s/p recent CV 11/27/23
Moderate MR/TR, mitral stenosis
Per [facility] 11/27/2023
Moderate pulm hypertension, PA systolic pressure 68 per echo September 2022
Conditions present prior to admission
History of congestive heart failure
Tachybradycardia syndrome
Pacemaker placement August 2022
History of stroke 1994
Diabetes
Morbid obesity
Plan/recommendations
Patient with extremely complex medical history: valvular disease, pulm hypertension, difficult to control atrial fibrillation.
She is not on anticoagulation due to recent lower GI bleed
She does have a Medtronic pacemaker
Remains on amiodarone drip, can transition to orals, now off pressors
UTI noted, E coli+
Abdominal imaging without any focal abnormality
No abdominal pain on exam. Chest x-ray unremarkable
Moving forward
Continue with empiric antibiotics, vancomycin/meropenem. Micafungin added
Follow cultures (blood, urine)
She has a history of ESBL UTI November 2023, resistant to cefepime.
Sensitive to ampicillin/clavulanate, ertapenem, gentamicin, meropenem, Zosyn, Bactrim
Remarkably, lactate is normal
Perianal lesions noted secondary to radiation therapy
ID following
Patient with anal cancer, ongoing chemotherapy/radiation
Oncology following
Consideration for transfer to [facility] per notes for ongoing treatment
Stop stress dose steroids at this time.
Not sure whether patient received steroids with her chemotherapy regimen--has ND dosing which we will confirm
Continue with IV fluids, LR
Recent echocardiogram with normal biventricular function, pulm hypertension noted.
Baseline creatinine 1.6 --> peak 2.1/ now 2.0
Monitor I's and O's
Pancytopenia noted. Maintain active type and screen
Port is currently accessed
Lastly, may require cardiology evaluation, sinus tach ongoing
Patient has Medtronic pacemaker. Digoxin was discontinued in the past due to renal disease
Amiodarone PO ongoing
Patient follows cardiology ([facility])
Consider cardiology evaluation if rate control becomes an issue
Follow blood sugars, insulin sliding scale
Adjustments on prandial insulin, required units overnight
Hypoglycemia noted but hemoglobin A1c 7.8
Ensure supplements
DVT prophylaxis: Sequential teds
GI prophylaxis: Protonix
PT/OT, OOB
Presently, full CODE STATUS noted
Diagnostic Data
CXR 02/10/24- No acute cardiopulmonary process.
Duplex 02/12/24- 1. No evidence of deep venous thrombosis in the bilateral lower extremities as described above.
CT Abd 02/10/24- No clear evidence for an acute process in the abdomen or pelvis given the significant limitations of the lack of oral and intravenous contrast. Soft tissue thickening at the level of the anus compatible with the patient's known anal
carcinoma.
PET CT 01/15/24- Face and neck: There are no areas of abnormal FDG avidity in the face or neck. There is no cervical lymphadenopathy
CHEST: There are no areas of abnormal FDG avidity in the chest. There is small-moderate right pleural effusion with associated compressive atelectasis at the right lung base
There is mild hazy and groundglass parenchymal airspace disease in the upper portions of both lungs.
Abdomen and pelvis: There is a 6.5 cm FDG avid rectal neoplasm measuring 17.4 SUV max consistent with patient's known malignancy
There is no evidence of metastatic disease or metastatic adenopathy in the abdomen or pelvis.
Osseous: There is degenerative disc disease at L5-S1. There is no evidence of FDG avid metastasis in the regional osseous system.
DARION 11/27/23- CONCLUSIONS: Normal left ventricular size and function. Left ventricular ejection fraction is 55-60%. Biatrial enlargement No left atrial appendage thrombus. Dense mitral annular calcification. Thickened restricted mitral valve
leaflets. Mild to moderate mitral regurgitation. Mild to moderate tricuspid regurgitation. Compared to prior echo from Sep 2022, prior echo had EF 50%with known moderate MS with mean mitral gradient 6 mmHg.
-----
Critical Care time 34 mins -- The patient is admitted for acute critical illness for the treatment of vital organ failure and/or prevention of further life-threatening conditions. Total care includes time spent in review of history, physical exam,
medications, hemodynamic/ventilator parameters, laboratory data, imaging and discussion with house staff, pharmacy, respiratory therapy, live in housekeeper nanny, and nursing.
Subjective Dataa
Subjective Data
Date of Service:
Date of Service: February 14, 2024
Chief Complaint: Claims Director Follow Up
Subjective:
no acute events ON, off pressors
no new complaints
tolerating diet
Objective Data
Data Reviewed
Vital Signs / I&O / Oxygen:
Vital Signs
Temp Pulse Resp BP Pulse Ox
96.4 F L 112 15 104/65 99
02/14/24 03:10 02/14/24 06:00 02/14/24 06:00 02/14/24 06:00 02/14/24 06:00
Intake and Output
02/13/24 02/14/24 02/15/24
06:59 06:59 06:59
Intake Total 3784.7 / 3912.2 2538.3 / 2538.3
Output Total 940 / 940 805 / 805
Balance 2844.7 / 2972.2 1733.3 / 1733.3
SaO2 99
Nasal Cannula flow liters per 2
minute
Physical Exam
General: Comfortable, Other (Upper extremity midline ) and Other (Anterior chest port)
HEENT: Normocephalic, Anicteric and Moist Mucous Membranes
Cardiovascular: S1-S2, Regular Rhythm, Murmur (n), Rub (n), Peripheral Edema (n) and Calf Tenderness (n)
Respiratory: Clear, Wheeze (n), Crackles (n), Rhonchi (n) and Non-Labored Respirations
GI: Soft, Non Distended and Non Tender
Neurology: Awake, Alert, Oriented, AO x 3, No Motor Deficits and Depressed (flat affect)
Skin: Good Color (Mild pallor), Cyanosis (n), Jaundice (n) and Rash
Labs/Micro/Reports
Lab Data
02/14/24 05:50
02/14/24 05:50
Laboratory Results
02/13/24 02/14/24
11:09 05:50
APTT 73.9 H 89.8 H
Microbiology
02/10/24 16:10 Blood/Venous Blood Culture - Preliminary
No Growth in 72 hours- Final report to follow
02/10/24 16:10 Blood/Venous Blood Culture - Preliminary
No Growth in 72 hours- Final report to follow
02/12/24 03:59 Feces/Stool Salmonella/Shigella Culture - Preliminary
Culture in Progress
02/12/24 03:59 Feces/Stool Campylobacter Culture - Preliminary
Culture in Progress
02/10/24 18:02 Urine Urine Culture - Final
Escherichia coli - ESBL
02/11/24 09:55 Nose MRSA Screen - Final
No Methicillin Resistant Staphylococcus aureus isolated.
02/12/24 03:59 Feces/Stool C. difficile GDH Antigen & Toxins - Final
C. difficile antigen positive, toxin negative.
Clostridium difficile present, but toxin not detected.
Patient may be a carrier, colonized with nontoxinogenic
strain or the level of toxin in sample is below detection
limits. This information should be used in conjunction with
the patient's clinical history.
--- NOTE | 2024-02-14 07:58 | W.PN.HOSP.TC ---
Addendum entered and electronically signed by Liam Sykes MD 02/14/24 14:24:
Acute kidney injury cannot be proven and has been ruled out at this time.
Addendum entered and electronically signed by Liam Sykes MD 02/14/24 11:17:
I saw and evaluated the patient. I reviewed the resident�s note and agree with findings and plan as documented in the resident�s note.
Patient reports SOB with exertion and diarrhea
Gen: remains NAD, AAOx3.
Eyes: EOMI, PERRLA, no scleral icterus.
Neck: supple.
CV: remains tachycardic, irreg/irreg, +S1/S2, no m/r/g.
Resp: remains CTAB, no rales, wheezes, or rhonchi.
Abd: +BS, soft, NT, ND
Skin: No rashes.
Neuro: CN 2-12 intact, non-focal.
Psych: Normal mood and affect.
02/12/24 03:59 Feces/Stool Salmonella/Shigella Culture - Final
No Salmonella, Shigella, Aeromonas or Plesiomonas species
isolated.
02/12/24 03:59 Feces/Stool Campylobacter Culture - Final
No Campylobacter species isolated.
02/10/24 16:10 Blood/Venous Blood Culture - Preliminary
No Growth in 72 hours- Final report to follow
02/10/24 16:10 Blood/Venous Blood Culture - Preliminary
No Growth in 72 hours- Final report to follow
02/10/24 18:02 Urine Urine Culture - Final
Escherichia coli - ESBL
02/11/24 09:55 Nose MRSA Screen - Final
No Methicillin Resistant Staphylococcus aureus isolated.
02/12/24 03:59 Feces/Stool C. difficile GDH Antigen & Toxins - Final
C. difficile antigen positive, toxin negative.
Clostridium difficile present, but toxin not detected.
Patient may be a carrier, colonized with nontoxinogenic
strain or the level of toxin in sample is below detection
limits. This information should be used in conjunction with
the patient's clinical history.
02/10/24 15:26 Nasal Swab Influenza Types A & B (MAKENNA) - Final
Negative for Influenza A & B, NAAT
Negative results must be combined with clinical observations
and patient history.
Nucleic Acid Amplification test (NAAT)performed on the
[employer] platform.
Septic shock and neutropenic fever:
-Fevers and neutropenia have resolved
-Continue IV meropenem and prophylactic PO Vanco (C diff Ag POS) infectious disease
-wean vasopressin as tolerated
Afib with RVR:
-cont Amio gtt
-cont Eliquis
-cardiology following
Non-AG met acidosis, OSMANY:
-baseline Cr 1.6
-cont PO HCO3-
Mild hyponatremia
Total time spent on today's encounter was 50 minutes which included time spent in counseling the patient/family regarding diagnosis and treatment plan as listed above, goals of care, and symptom management. Case was discussed with nursing staff,
specialists, and care coordinators/case management. All labs and imaging personally reviewed by me. Remainder the time spent in detailed review of previous records, lab data, imaging, and other medical provider documentation.
Original Note:
Today's Communication/Plan
-
Continue ABX, IV amiodarone, okay to stepdown to IMU
Assessment / Plan
Assessment / Plan
73-year-old female with anal cancer on chemotherapy admitted with generalized weakness. Also had several days of poor appetite and poor p.o. intake. She had decreased urine output
Septic Shock:
Off pressors
Neutropenic fever.
CXR: No acute cardiopulmonary process,
Blood cxs x2: No growth
Urinalysis unremarkable, recent hx of Ecoli (ESBL). Urine cultures positive for E. coli (ESBL).
C. difficile antigen positive toxin negative. Oral vancomycin started stool studies pending
Continue p.o. vancomycin + IV vancomycin (skin excoriation), Meropenem for ESBL coverage
Appreciate ID input
Anal cancer:
-Receives chemotherapy and radiation with [facility]. Last chemo 1-2 weeks ago, last radiation 1 week ago
-appreciate hemonc input
-Pain control
Pancytopenia
Likely secondary to chemotherapy. Neutropenia resolved. Leukopenia rapidly improving. thrombocytopenia resolved
-Anemia stable. Will transfuse as needed
-Appreciate heme-onc input
Afib
with RVR on presentation
-Switch to oral anticoagulant today
-Amioderone IV, will convert to oral per patient's response
OSMANY on CKD3b
Oliguria, Cr 2.0. Baseline 1.2 from 11/2023
FeNa 0%. Prerenal, secondary to shock
-Continue IVF
Hypokalemia:
Repleted, resolved
Hypomagnesemia:
Repleted, resolved
Hyponatremia: 130
-Follow BMP
Hypertension:
Hold home antihypertensive for shock
Diabetes:
Hold Home meds
-ISS
Hyperlipidemia
-Continue Statin
Hx of CHF:
-Metoprolol and furosemide held for shock
Pacemaker placement 2022
Hx of Stroke
Obesity
History of ESBL UTI
GERD/gastritis-add PPI
History of right pleural effusion with thoracentesis in the past
History of lower GI bleed while on anticoagulation
History of prior intracranial hemorrhage-details unclear
Hypoalbuminemia
DVT prophylaxis: SCDs
Code Status; Full Code
Anticipated Discharge: 24 - 48 hours
Subjective/Interval History
-
Date of Service: February 14, 2024
Improved appetite, generally feels better
Objective Data
-
Labs:
Laboratory Results
02/14/24
05:50
WBC 4.0 L
Hgb 8.3 L
Hct 25.5 L
Plt Count 118 L
APTT 89.8 H
Sodium 130 L
Potassium 4.0
Chloride 105
Carbon Dioxide 19 L
BUN 55 H
Creatinine 2.0 H
Glucose 208 H
Calcium 7.8 L
Vital Signs:
Vital Signs
Temp Pulse Resp BP Pulse Ox
96.9 F L 112 15 104/65 99
02/14/24 07:32 02/14/24 06:00 02/14/24 06:00 02/14/24 06:00 02/14/24 06:00
I&O
02/13/24 02/14/24 02/15/24
06:59 06:59 06:59
Intake Total 3784.7 / 3912.2 2538.3 / 2538.3
Output Total 940 / 940 805 / 805
Balance 2844.7 / 2972.2 1733.3 / 1733.3
Review of Systems
-
History Source: Patient
Constitutional: Denies Fever or Chills
Respiratory: Denies Cough or Trouble Breathing
Cardiac: Reports No Symptoms; Denies Chest Pain, Diaphoresis or Palpitations
Abdomen/GI: Reports No Symptoms; Denies Abdominal Pain, Nausea or Vomiting
Physical Exam
-
General: No Apparent Distress and Comfortable
Respiratory: Clear to Auscultation and Non Labored Respirations; Negative Wheezes, Rales, Rhonchi or Crackles
Cardiac: Regular Rhythm, S1/S2 and Tachycardic; Negative Murmur, Rub or Calf Tenderness
GI: Soft
Genito-urinary: No Costovertebral Tender and Clear Urine
Musculoskeletal: No Clubbing, No Cyanosis and No Edema
Skin: Warm and Dry
Neuro: Awake, Alert and Oriented
Psych: Calm
[2024-02-14 08:01] LABS: Glucose - Point of Care 228 mg/dl (70-99)
[2024-02-14] MEDS: NOVOLOG FLEXPEN-MODERATE RESISTANCE 9 UNITS SC (08:17)
[2024-02-14] MEDS: SODIUM BICARBONATE 650 MG PO ×3 (08:18→22:51)
[2024-02-14] MEDS: PROTONIX 40 MG PO (08:18)
[2024-02-14] MEDS: QUESTRAN 4 grams in 100 grams AQUAPHOR 1 APPLIC TOPICAL ×2 (08:18→20:47)
[2024-02-14] MEDS: VITAMIN B-12 1000 MCG PO (08:18)
[2024-02-14] MEDS: FLOMAX 0.4 MG PO (08:18)
[2024-02-14] MEDS: VITAMIN D3 (cholecalciferol) 25 MCG PO (08:18)
--- NOTE | 2024-02-14 09:08 | W.PN.ID1 ---
Date of Service
Date of Service: February 14, 2024
Today's Communication
- continue meropenem - renally dosed
- continue oral vancomycin - redosed at BID for prophyalxis
- stop IV vancomycin, stop micafungin
Assessment / Plan
Neutropenic Fever - resolved
Shock - resolved
UTI
Anal Cancer on chemotherapy with open excoriations around the anus
OSMANY on CKD
Pacemaker
- blood cultures x2 in progress - no growth to date
- 02/09 urine culture 100 K ESBL E coli
- continue meropenem - renally dosed
- continue oral vancomycin - redosed at BID for prophyalxis
- stop IV vancomycin, stop micafungin
- follow clinically; note plans for possible transfer to [facility] to continue oncology care per oncology team
Chief Complaint
-: Clinical Sepsis (shock) and Other (neutropenic fever)
Subjective / Review of Systems
persistent hypothermia
phenylephrine weaned off
wbc now 4.0
cr 2.0
colonized with C diff
reports ongoing tenderness in the perirectal area
Vital Signs / Physical Exam
Vital Signs
Vital Signs
Temp Pulse Resp BP Pulse Ox
97.5 F 112 15 104/65 99
02/14/24 08:54 02/14/24 06:00 02/14/24 06:00 02/14/24 06:00 02/14/24 06:00
Physical Exam
Constitutional: No Acute Distress
Cardiovascular: Regular Rate and S1/S2; Negative Murmur or Rub
Pulmonary: Clear and Symmetric; Negative Wheezes or Rales
Gastrointestinal: Soft, Tender (mild more so in the RLQ), Non Distended and Normal Bowel Sounds
Skin: Warm and Dry; Negative Rash or Jaundice
Objective Data
Lab Data
Lab Results
02/14/24 05:50
02/14/24 05:50
PT 23.1 Sec (11.4-14.6) H 02/11/24 03:03
INR 2.02 02/11/24 03:03
APTT 89.8 Sec (23.4-35.0) H 02/14/24 05:50
Estimated Creat Clear 27 ml/min 02/14/24 05:50
Lactic Acid 1.5 mmol/L (0.7-2.0) 02/11/24 09:55
Total Bilirubin 1.1 mg/dl (0.2-1.3) 02/13/24 03:59
AST 18 U/L (14-36) 02/13/24 03:59
ALT 27 U/L (0-35) 02/13/24 03:59
Alkaline Phosphatase 58 U/L (38-126) 02/13/24 03:59
Most recent labs reviewed.
Micro Results:
02/12/24 03:59 Salmonella/Shigella Culture - Final
Feces/Stool No Salmonella, Shigella, Aeromonas or Plesiomonas species
isolated.
Campylobacter Culture - Final
No Campylobacter species isolated.
Shiga Toxin Test - Pending
02/10/24 16:10 Blood Culture - Preliminary
Blood/Venous No Growth in 72 hours- Final report to follow
02/10/24 16:10 Blood Culture - Preliminary
Blood/Venous No Growth in 72 hours- Final report to follow
02/10/24 18:02 Urine Culture - Final
Urine Escherichia coli - ESBL
02/11/24 09:55 MRSA Screen - Final
Nose No Methicillin Resistant Staphylococcus aureus isolated.
02/12/24 03:59 C. difficile GDH Antigen & Toxins - Final
Feces/Stool C. difficile antigen positive, toxin negative.
Clostridium difficile present, but toxin not detected.
Patient may be a carrier, colonized with nontoxinogenic
strain or the level of toxin in sample is below detection
limits. This information should be used in conjunction with
the patient's clinical history.
02/10/24 15:26 Influenza Types A & B (MAKENNA) - Final
Nasal Swab Negative for Influenza A & B, NAAT
Negative results must be combined with clinical observations
and patient history.
Nucleic Acid Amplification test (NAAT)performed on the
[employer] platform.
--- NOTE | 2024-02-14 09:40 | W.PN.CD ---
Addendum entered and electronically signed by Marco Zelaya MD 02/14/24 14:32:
Patient seen and examined in collaboration with PGY2 Resident; agree with below.
-Patient still with atrial fibrillation with suboptimal heart rate control.
-Exam: Irregular rate and rhythm, decreased bibasilar breath sounds.
-Continue amiodarone drip for now.
-Continue harbour master.
-On Eliquis.
Original Note:
Today's Communication / Plan
-
-Amiodarone drip via central line.
-Switched to eliquis.
Impression / Plan
-
background -
73-year-old female known to cardiology service in the past for persistent A-fib s/p cardioversion on Eliquis, tachycardia - bradycardia syndrome s/p dual-chamber pacemaker placement-2022, chronic HFpEF, mitral stenosis, prior CVA-2005,
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
fevers and chills x 1 week-found to have pancytopenia and neutropenic fever, currently in septic shock. Cardiology consulted for A-fib with RVR. (known to Dr. Hsu, her primary youth care worker),
Impression -
Septic shock -
-Off of pressors, blood pressure remained stable.
AFib with RVR -
-Long hx of AFib, came in with sinus rhythm.
-Currently telemetry findings significant for A-fib with RVR, with aberrations.
-Will give a bolus of amiodarone 150 mg, and then on amiodarone drip since 02/13/2024.
-Continue amiodarone drip.
-Monitor for hypotension when on amiodarone drip, BP trending low.
-Underwent cardioversion 11/27/2023.
-Heparin discontinued, back on eliquis.
-On rhythm control with amiodarone 200 once daily and anticoagulation with Eliquis at home.
Chronic HFpEF -
-Physical examination findings not consistent for decompensation.
-Hence currently stable. Does not need an echocardiogram as of today.
-Will reevaluate if necessary.
-Given septic shock-Home GDMT-furosemide, metoprolol succinate on hold.
-Not on any GDMT-during current hospitalization (SGLT2, MRA, loop diuretics, beta-blockers.)
-Monitor weight, I&O.
Systemic hypertension-
-Home antihypertensive medications-furosemide 40 mg, metoprolol succinate 25 twice a day on hold.
Tachybradycardia syndrome-
-S/P dual chamber PPM 12/05/2022
Pancytopenia
CKD3b
Type II DM
Squamous cell carcinoma of the anus
History of CVA x 2
History of ESBL UTI
GERD
History of right pleural effusion s/p thoracocentesis in the past.
Subjective-
Patient reports to experience occasional palpitations X 2 days.
Data reviewed-
EKG-02/10/2024-atrial fibrillation with RVR.
Telemetry-02/13/20245803-[id number] heart rate 102, A-fib with RVR with some aberrations.
Echocardiogram-11/27/2023-LVEF 55 to 60%, biatrial enlargement, mitral annulus calcification with mitral stenosis, mild to mod MR, TR.
11/27/2023-s/p cardioversion.
12/05/2022-Medtronic dual chamber pacemaker placement.
Physical Exam
Vital Signs/Labs
Vital Signs
Temp Pulse Resp BP Pulse Ox
97.5 F 112 15 104/65 99
02/14/24 08:54 02/14/24 06:00 02/14/24 06:00 02/14/24 06:00 02/14/24 06:00
02/13/24 02/14/24 02/15/24
06:59 06:59 06:59
Actual Weight 92.5 kg 96.5 kg
02/14/24 05:50
02/14/24 05:50
PT 23.1 Sec (11.4-14.6) H 02/11/24 03:03
INR 2.02 02/11/24 03:03
APTT 89.8 Sec (23.4-35.0) H 02/14/24 05:50
Magnesium 1.9 mg/dl (1.6-2.3) 02/12/24 03:57
Physical Exam
Constitutional: Comfortable
Cardiovascular: Rhythm/rate is irregular, S1S2 is normal and Murmur/rub/gallop absent
Respiratory: Lungs clear to auscul. and Other (Diminished breath sounds in the left lower lobe.)
Neuro/Psych: AO x 3
Data Reviewed
-
Date of Service: February 14, 2024
EKG: Tracing Personally Visualized and interpreted
Labs: Labs Reviewed by me
[2024-02-14] MEDS: TYLENOL 650 MG PO (09:58)
[2024-02-14] MEDS: MERREM 500 MG IV ×2 (10:00→22:51)
[2024-02-14] MEDS: STERILE WATER FOR INJECTION 10 ML IV ×2 (10:00→22:51)
[2024-02-14] MEDS: ProAmatine 5 MG PO (10:46)
[2024-02-14] MEDS: ELIQUIS 5 MG PO ×2 (10:46→22:51)
--- NOTE | 2024-02-14 11:23 | W.PN.ONC2 ---
Addendum entered and electronically signed by Odilia Bernard MD 02/14/24 12:09:
agree w/ A&P as outlined below
Will d/w Rad Onc at [facility] re: possibility of transfer to [facility] to continue RT. Alternatively, could resume RT as outpatient if d/c in next 1-2 days.
Original Note:
Today's Communication / Plan
-
follow CBC
consider transfer to [facility] once medical stable, ie transferred out of ICU
Impression
Impression
sepsis - unclear etiology
neutropenic fever
anal cancer -s/p mitomycin C/ infusional 5FU 01/28 - 02/01 - ongoing XRT
afib
anemia
thrombocytopenia
OSMANY on CKD
Plan
Plan
1. Sepsis / neutropenic fever
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
-antibiotics as per ID
-neutropenia resolved
2. Anal cancer s/p mitomycin C/ 5FU - 01/28 - 02/01 - w/ ongoing XRT
-component of cytopenias are likely related to recent chemotherapy administration
-w/ patient being critically ill - XRT on hold (gets at [facility]) and will explore transfer options once transfered out of ICU to continue curative intent XRT at [facility]
-cont supportive care
- Hold anticoagulation, antiplatelet, and nsaids for platelet count <50,000 -platelet count recoved to >100,000
Subjective/Objective
Chief Complaint
fatigue, STOCK and continued diarrhea
Subjective
remains on pressor support
Vital Signs:
Vital Signs
Temp Pulse Resp BP Pulse Ox
96.5 F L 112 15 104/65 98
02/14/24 11:18 02/14/24 06:00 02/14/24 06:00 02/14/24 06:00 02/14/24 10:37
Lab Results:
Laboratory Data
WBC 4.0 10^3/uL (4.8-10.8) L 02/14/24 05:50
Hgb 8.3 g/dL (12.0-16.0) L 02/14/24 05:50
Plt Count 118 10^3/uL (130-400) L 02/14/24 05:50
PT 23.1 Sec (11.4-14.6) H 02/11/24 03:03
INR 2.02 02/11/24 03:03
APTT 89.8 Sec (23.4-35.0) H 02/14/24 05:50
eGFR 25.73 02/14/24 05:50
Physical Exam
HEENT: No Jaundice
Cardiology: Irregular rate/rhythm (afib with tachycardia )
Pulmonary: Clear
GI: Soft
Extremities: No Edema
Neuro: Non Focal
Review of Systems
Review of Systems
review of systems notable for subjective, otherwise negative
--- NOTE | 2024-02-14 12:00 | PTCARENOTE ---
Received pt AOx3, fatigued, assisted OOB to BSC then chair. Pt continues to be incontinent of loose bowel movements, c/o rectal pain, ointments applied, see MAR, 650mg PO Tylenol given. BP low but within normal limits, prn Midodrine as needed. A fib
on monitor 110-130's. Amio @ 0.5 mcg/min via R SQ Port. R midline w/ Heparin gtt, dc'd this AM and Eliquis started. Rogers w/ decreased urine output, Dr Scott aware. Pt to be downgraded to tele. RA 97%. Will continue to monitor. Full assessment as
documented
[2024-02-14] MEDS: NOVOLOG FLEXPEN-MODERATE RESISTANCE 3 UNITS SC (12:03)
[2024-02-14] MEDS: NOVOLOG FLEXPEN 5 UNITS SC ×2 (12:03→17:58)
[2024-02-14 12:13] LABS: Glucose - Point of Care 203 mg/dl (70-99)
--- NOTE | 2024-02-14 12:16 | PN.CDI ---
CDI
- -
CDI:
Physician Documentation Request
Admit Date: 02/10/24 21:13
Dear Doctor Nicky,
Patient admitted with septic shock an neutropenic fever.
Progress notes include a diagnosis of OSMANY.
Creatinine results:
Laboratory Tests
02/10/24 02/11/24 02/12/24
16:04 03:03 03:57
Creatinine 2.1 H 2.1 H 2.1 H
02/13/24 02/14/24
03:59 05:50
Creatinine 2.0 H 2.0 H
Criteria for OSMANY*
1 Increase in serum creatinine by > or = to 0.3 mg/dL (> or = to 26.5 micromol/L) within 48 hours, OR
2 Increase in serum creatinine to > or = to 1.5 times baseline, which is known or presumed to have occurred within 7 days, OR
3 Urine volume < 0.5 nL/kg/hour for six hours
Based on the above information and the recognized standard for OSMANY could you please verify this diagnoses is still accurate and reflective of the patient�s condition to ensure quality of the medical record.
Please clarify in the Progress Notes:
�OSMANY is/was present and is a clinical diagnosis based on (please include this additional support in the medical record)
�After study OSMANY has been ruled out
�Other
Use of terms such as suspected, likely, concern for, or probable (associated with a specific diagnosis that is being evaluated, monitored, or treated as if it exists) are acceptable and can be coded in the inpatient setting, when documented at the
time of discharge.
Thank you,
Ana Jack RN, BSN
CDI Specialist
tiger text
Please use your independent medical judgment in providing your response.
--- NOTE | 2024-02-14 13:04 | PTCARENOTE ---
Ken nice. Due to void @ 6551.
--- NOTE | 2024-02-14 14:33 | CM ---
CM following re: discharge planning.
Reviewed pt's chart, met with pt.
Pt stated she feels weak and she does not know what her next level of care will be.
PT and OT evaluations noted - acute rehab level of care recommended. Per RAVIN Clinton, pt will get radiation therapy at [facility] and [facility] recommended.
Per CM note from yesterday, a referral made to [facility] yesterday and a referral has been denied.
At this point, per RAVIN Clinton, pt most likely will be transferred to [facility].
D/C plan: uncertain at this time, possible transfer the pt to [facility].
CM will follow with discharge plan updates as hospitalization progresses.
[2024-02-14] MEDS: CORDARONE 518 MG IV (16:13)
[2024-02-14 17:54] LABS: Glucose - Point of Care 158 mg/dl (70-99)
[2024-02-14] MEDS: NOVOLOG FLEXPEN-MODERATE RESISTANCE 1 UNITS SC (17:57)
--- NOTE | 2024-02-14 21:18 | PTCARENOTE ---
Received patient AAOx3, following commands, pain at acceptable level. Trace generalized anasarca, +1 bilateral lower extremities. Afib, 100s, BP stable, 90s/60s-70s, SCDs on. Amio gtt ongoing per order. On room air, saturating 98%, lung sounds
diminished throughout. Abdomen soft, round, obese, hypoactive bowel sounds. Bladder scan due 0000. Loose stool, cleaned and questram and barrier cream applied. Subcutaneous port and PIVs WNL, patent. Warm blankets provided, call chaves within reach.
[2024-02-14 22:29] LABS: Glucose - Point of Care 168 mg/dl (70-99)
[2024-02-14] MEDS: LANTUS 0.2 UNITS SC (22:52)
[2024-02-14] MEDS: LIPITOR 40 MG PO (22:53)
[2024-02-15] VITALS (12 sets, daily range): BP systolic 87–113; BP diastolic 43–86; BMI 39.5
[2024-02-15 04:36] LABS: Blood Urea Nitrogen 58 mg/dl (7-17); Calcium 8.2 mg/dl (8.4-10.2); Carbon Dioxide 18 mmol/L (22-30); Chloride 104 mmol/L (98-107); Estimated Creatinine Clearance 28 ml/min; Glucose 160 mg/dl (70-99); Magnesium 2.1 mg/dl (1.6-2.3); Potassium 3.8 mmol/L (3.5-5.1); Sodium 131 mmol/L (135-145); eGFR 27.37
[2024-02-15] MEDS: SYNTHROID 125 MCG PO (06:04)
--- NOTE | 2024-02-15 07:39 | W.PN.HOSP.TC ---
Addendum entered and electronically signed by Liam Sykes MD 02/15/24 09:12:
I saw and evaluated the patient. I reviewed the resident�s note and agree with findings and plan as documented in the resident�s note.
Patient reports SOB with exertion and diarrhea
Gen: continues to remain NAD, AAOx3.
Eyes: EOMI, PERRLA, no scleral icterus.
Neck: supple.
CV: continues to remain tachycardic, irreg/irreg, +S1/S2, no m/r/g.
Resp: continues to remain CTAB, no rales, wheezes, or rhonchi.
Abd: +BS, soft, NT, ND
Skin: No rashes.
Neuro: CN 2-12 intact, non-focal.
Psych: Normal mood and affect.
02/10/24 16:10 Blood/Venous Blood Culture - Preliminary
No Growth in 4 days- Final report to follow
02/10/24 16:10 Blood/Venous Blood Culture - Preliminary
No Growth in 4 days- Final report to follow
02/12/24 03:59 Feces/Stool Salmonella/Shigella Culture - Final
No Salmonella, Shigella, Aeromonas or Plesiomonas species
isolated.
02/12/24 03:59 Feces/Stool Campylobacter Culture - Final
No Campylobacter species isolated.
02/10/24 18:02 Urine Urine Culture - Final
Escherichia coli - ESBL
02/11/24 09:55 Nose MRSA Screen - Final
No Methicillin Resistant Staphylococcus aureus isolated.
02/12/24 03:59 Feces/Stool C. difficile GDH Antigen & Toxins - Final
C. difficile antigen positive, toxin negative.
Clostridium difficile present, but toxin not detected.
Patient may be a carrier, colonized with nontoxinogenic
strain or the level of toxin in sample is below detection
limits. This information should be used in conjunction with
the patient's clinical history.
02/10/24 15:26 Nasal Swab Influenza Types A & B (MAKENNA) - Final
Negative for Influenza A & B, NAAT
Negative results must be combined with clinical observations
and patient history.
Nucleic Acid Amplification test (NAAT)performed on the
[employer] platform.
Septic shock and neutropenic fever due to ESBL E coli UTI:
-Fevers and neutropenia/leukopenia have resolved
-was on meropenem, now transitioning to 10 days Cipro (discussed with Dr. Myers)
-Continue prophylactic PO Vanco (C diff Ag POS) infectious disease
-wean vasopressin as tolerated
Afib with RVR:
-currently finishing Amio gtt and transitioning to PO Amio
-check echo
-cont Eliquis
-cardiology following
Anal CA:
-possible transfer to [facility] in next 1-2 days for XRT
Non-AG met acidosis: cont PO HCO3-
Mild hyponatremia
CKD3a
Total time spent on today's encounter was 51 minutes which included time spent in counseling the patient/family regarding diagnosis and treatment plan as listed above, goals of care, and symptom management. Case was discussed with nursing staff,
specialists, and care coordinators/case management. All labs and imaging personally reviewed by me. Remainder the time spent in detailed review of previous records, lab data, imaging, and other medical provider documentation.
Original Note:
Today's Communication/Plan
-
Continue ABX, amiodarone gtt
Assessment / Plan
Assessment / Plan
73-year-old female with anal cancer on chemotherapy admitted with generalized weakness. Also had several days of poor appetite and poor p.o. intake. She had decreased urine output
Septic Shock:
Secondary to UTI. Neutropenic fever.
Off pressors
CXR: No acute cardiopulmonary process,
Blood cxs x2: No growth
Urinalysis unremarkable, recent hx of Ecoli (ESBL). Urine cultures positive for E. coli (ESBL).
C. difficile antigen positive toxin negative. Stool cx negative
IV Vanc discontinued. Continue p.o. vancomycin for ppx and Meropenem for ESBL coverage, per ID
Appreciate ID input
Anal cancer:
-Receives chemotherapy and radiation with GVH. Last chemo 1-2 weeks ago, last radiation 1 week ago
-appreciate hemonc input
-Pain control
Pancytopenia
Likely secondary to chemotherapy. Neutropenia resolved. Leukopenia rapidly improving. thrombocytopenia resolved
-Anemia stable. Will transfuse as needed
-Appreciate heme-onc input
Afib
with RVR on presentation
-Continue Eliquis
-Continue Amioderone gtt today, will convert to oral per patient's response
-Appreciate cardiology input
Metabolic acidosis:
None anion gap.
-Continue bicarb, PO
-Follow BMP
OSMANY on CKD3b
Oliguria, Cr 2.0. Baseline cr 1.6
FeNa 0%. Prerenal, secondary to shock
-Follow BMP
Hypokalemia:
Repleted, resolved
Hypomagnesemia:
Repleted, resolved
Hyponatremia: 131
-Likely fluid overload from IVF
-Follow BMP
Hypertension:
Hold home antihypertensives for shock
Diabetes:
Hold Home meds
-ISS
Hyperlipidemia
-Continue Statin
Hx of CHF:
-Metoprolol and furosemide held for shock
Pacemaker placement 2022
Hx of Stroke
Obesity
History of ESBL UTI
GERD/gastritis-add PPI
History of right pleural effusion with thoracentesis in the past
History of lower GI bleed while on anticoagulation
History of prior intracranial hemorrhage-details unclear
Hypoalbuminemia
DVT prophylaxis: SCDs
Code Status; Full Code
Anticipated Discharge: 24 - 48 hours
Subjective/Interval History
-
Date of Service: February 15, 2024
Rogers discontinued yesterday afternoon. Patient required straight cath for voiding. Continued loose stools
Objective Data
-
Labs:
Laboratory Results
02/15/24 02/15/24
04:00 07:27
WBC Pending
Hgb Pending
Hct Pending
Plt Count Pending
Sodium 131 L
Potassium 3.8
Chloride 104
Carbon Dioxide 18 L
BUN 58 H
Creatinine 1.9 H
Glucose 160 H
Calcium 8.2 L
Vital Signs:
Vital Signs
Temp Pulse Resp BP Pulse Ox
96.6 F L 101 16 102/59 98
02/15/24 04:00 02/15/24 06:00 02/15/24 06:00 02/15/24 06:00 02/14/24 21:13
I&O
02/14/24 02/15/24 02/16/24
06:59 06:59 06:59
Intake Total 2538.3 / 2566.0 796.5 / 796.5
Output Total 805 / 805 700 / 700
Balance 1733.3 / 1761.0 96.5 / 96.5
Review of Systems
-
History Source: Patient
Respiratory: Denies Trouble Breathing
Cardiac: Reports No Symptoms; Denies Chest Pain or Palpitations
Abdomen/GI: Reports No Symptoms
Neuro: Denies Dizzy or Headache
Physical Exam
-
General: Comfortable
HEENT: Moist Mucous Membranes
Respiratory: Clear to Auscultation, Non Labored Respirations and Decreased Breath Sounds (righ lower lobe); Negative Wheezes, Rales, Rhonchi or Crackles
Cardiac: Irregular Rhythm and Tachycardic; Negative Murmur, Rub or Calf Tenderness
GI: Soft, Nontender and Nondistended
Musculoskeletal: No Clubbing, No Cyanosis, Edema, Right Lower Extrem (+1) and Edema, Left Lower Extrem (+1)
Skin: Warm and Dry; Negative Rash
Neuro: Awake, Alert and Oriented
[2024-02-15 07:55] LABS: Glucose - Point of Care 106 mg/dl (70-99)
[2024-02-15] MEDS: NOVOLOG FLEXPEN-MODERATE RESISTANCE SC ×3 (07:57→17:40)
[2024-02-15] MEDS: SODIUM BICARBONATE 650 MG PO ×3 (07:58→22:27)
[2024-02-15] MEDS: FLOMAX 0.4 MG PO (07:58)
[2024-02-15] MEDS: VITAMIN D3 (cholecalciferol) 25 MCG PO (07:58)
[2024-02-15] MEDS: ELIQUIS 5 MG PO ×2 (07:58→20:41)
[2024-02-15] MEDS: VITAMIN B-12 1000 MCG PO (07:58)
[2024-02-15] MEDS: PROTONIX 40 MG PO (07:58)
[2024-02-15] MEDS: QUESTRAN 4 grams in 100 grams AQUAPHOR 1 APPLIC TOPICAL ×2 (07:59→20:44)
[2024-02-15 08:09] LABS: Hematocrit 26.8 % (37.0-47.0); Mean Corp Hgb Conc. 33.6 g/dL (33.0-37.0); Mean Corpuscular Volume 80.5 fL (81.0-99.0); Mean Platelet Volume 10.8 fL (7.4-10.4); Platelet Count 158 10^3/uL (130-400); Red Blood Cell Count 3.33 10^6/uL (4.20-5.40); Red Cell Dist. Width 18.2 % (11.5-14.5); White Blood Cell Count 8.1 10^3/uL (4.8-10.8)
--- NOTE | 2024-02-15 08:40 | W.PN.CD ---
Addendum entered and electronically signed by Rd Alvarado MD 02/15/24 08:55:
14 beat wide complex rhythm at about 120 bpm, patient on amio
BB being restarted
echo ordered.
Original Note:
Today's Communication / Plan
-
Patient in A-fib rates mildly accelerated
transition from IV amiodarone to oral
Resume low-dose metoprolol. Then eventually can get back to metoprolol 25 mg twice daily which was outpatient dosing.
Continue anticoagulation
Impression / Plan
-
-
73-year-old female known to cardiology service in the past for persistent A-fib s/p cardioversion on Eliquis, tachycardia - bradycardia syndrome s/p dual-chamber pacemaker placement-2022, chronic HFpEF, mitral stenosis, prior CVA-1994, 2005,
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
fevers and chills x 1 week-found to have pancytopenia and neutropenic fever, currently in septic shock. Cardiology consulted for A-fib with RVR. (known to Dr. Hsu, her primary emergency response officer),
Septic shock -
-Off of pressors, blood pressure remained stable.
AFib with RVR -
-Long hx of AFib, came in with sinus rhythm. Then developed A-fib with RVR currently on IV amiodarone. Heart rates mildly accelerated. Patient not currently feeling A-fib.
-Transition back to amiodarone
-Patient has pacemaker.
-Resume metoprolol as both blood pressure tolerates
-After recovery from acute illness if patient does not convert back to sinus rhythm then could consider cardioversion. Last cardioversion 11/27/2023
-H continue Eliquis
-On rhythm control with amiodarone 200 once daily and anticoagulation with Eliquis at home.
Chronic HFpEF -
Stable continue to monitor volume status
Systemic hypertension-
-Home antihypertensive medications-furosemide 40 mg, metoprolol succinate 25 twice a day on hold.
Tachybradycardia syndrome-
-S/P dual chamber PPM 12/05/2022
Pancytopenia
CKD3b
Type II DM
Squamous cell carcinoma of the anus
History of CVA x 2
History of ESBL UTI
GERD
History of right pleural effusion s/p thoracocentesis in the past.
Subjective-
Patient reports to experience occasional palpitations X 2 days.
Data reviewed-
EKG-02/10/2024-atrial fibrillation with RVR.
Telemetry-02/13/20247891-[id number] heart rate 102, A-fib with RVR with some aberrations.
Echocardiogram-11/27/2023-LVEF 55 to 60%, biatrial enlargement, mitral annulus calcification with mitral stenosis, mild to mod MR, TR.
11/27/2023-s/p cardioversion.
12/05/2022-[employer] dual chamber pacemaker placement.
Physical Exam
Vital Signs/Labs
Vital Signs
Temp Pulse Resp BP Pulse Ox
97.5 F 101 16 102/59 98
02/15/24 08:13 02/15/24 06:00 02/15/24 06:00 02/15/24 06:00 02/14/24 21:13
02/14/24 02/15/24 02/16/24
06:59 06:59 06:59
Actual Weight 96.5 kg 97.9 kg
02/15/24 07:55
02/15/24 04:00
PT 23.1 Sec (11.4-14.6) H 02/11/24 03:03
INR 2.02 02/11/24 03:03
APTT 89.8 Sec (23.4-35.0) H 02/14/24 05:50
Magnesium 2.1 mg/dl (1.6-2.3) 02/15/24 04:00
Physical Exam
Constitutional: No acute distress
Cardiovascular: Rhythm/rate is irregular
Respiratory: Respiratory effort normal
GI: Soft
Neuro/Psych: Alert
Data Reviewed
-
Date of Service: February 15, 2024
Medical Decision Making: Reviewed Test Results
Medical Tests (PFT, Pathology etc): Image Personally Visualized and interpreted
Labs: Labs Reviewed by me
--- NOTE | 2024-02-15 08:48 | W.PN.ID1 ---
Date of Service
Date of Service: February 15, 2024
Today's Communication
- note weight up 10 kg since admission - further assessment/management per primary team
- start ciprofloxacin 02/10-02/19 (10 day course) - renally dosed
- EKG at 3PM to reassess qtc
- note drug:drug interaction between questran and oral vancomycin - Questran binds the oral vancomycin making it less effective, suggest d/c questran if feasible, if not able to do so limited utility of the oral vancomycin and it could be stopped
- will add probiotics at this time
Assessment / Plan
Neutropenic Fever - resolved
Hypotension - remains on midodrine
UTI
Anal Cancer on chemotherapy with open excoriations around the anus
OSMANY on CKD
Pacemaker
- note weight up 10 kg since admission - further assessment/management per primary team
- blood cultures x2 in progress - no growth to date
- 02/09 urine culture 100 K ESBL E coli
- stop meropenem
- start ciprofloxacin 02/10-02/19 (10 day course) - renally dosed
- EKG at 3PM to reassess qtc
- continue oral vancomycin - redosed at BID for prophylaxis
- note drug:drug interaction between questran and oral vancomycin - Questran binds the oral vancomycin making it less effective, suggest d/c questran if feasible, if not able to do so limited utility of the oral vancomycin and it could be stopped
- will add probiotics at this time
- follow clinically; note plans for possible transfer to [facility] to continue oncology care per oncology team
Chief Complaint
-: Clinical Sepsis (shock) and Other (neutropenic fever)
Subjective / Review of Systems
persistent hypothermia on core Ts
BP stable on midodrine
wbc normalized, plt normalized
cr 1.9
urine culture 100K ESBL E coli
qtc 480
Vital Signs / Physical Exam
Vital Signs
Vital Signs
Temp Pulse Resp BP Pulse Ox
97.5 F 101 16 102/59 98
02/15/24 08:13 02/15/24 06:00 02/15/24 06:00 02/15/24 06:00 02/14/24 21:13
Physical Exam
Constitutional: No Acute Distress and Chronically Ill
Cardiovascular: Regular Rate and S1/S2; Negative Murmur or Rub
Pulmonary: Clear and Symmetric; Negative Wheezes or Rales
Gastrointestinal: Soft, Non Tender, Non Distended and Normal Bowel Sounds
Skin: Warm and Dry; Negative Rash or Jaundice
Objective Data
Lab Data
Lab Results
02/15/24 07:55
02/15/24 04:00
PT 23.1 Sec (11.4-14.6) H 02/11/24 03:03
INR 2.02 02/11/24 03:03
APTT 89.8 Sec (23.4-35.0) H 02/14/24 05:50
Estimated Creat Clear 28 ml/min 02/15/24 04:00
Lactic Acid 1.5 mmol/L (0.7-2.0) 02/11/24 09:55
Total Bilirubin 1.1 mg/dl (0.2-1.3) 02/13/24 03:59
AST 18 U/L (14-36) 02/13/24 03:59
ALT 27 U/L (0-35) 02/13/24 03:59
Alkaline Phosphatase 58 U/L (38-126) 02/13/24 03:59
Most recent labs reviewed.
Micro Results:
02/10/24 16:10 Blood Culture - Preliminary
Blood/Venous No Growth in 4 days- Final report to follow
02/10/24 16:10 Blood Culture - Preliminary
Blood/Venous No Growth in 4 days- Final report to follow
02/12/24 03:59 Salmonella/Shigella Culture - Final
Feces/Stool No Salmonella, Shigella, Aeromonas or Plesiomonas species
isolated.
Campylobacter Culture - Final
No Campylobacter species isolated.
Shiga Toxin Test - Pending
02/10/24 18:02 Urine Culture - Final
Urine Escherichia coli - ESBL
02/11/24 09:55 MRSA Screen - Final
Nose No Methicillin Resistant Staphylococcus aureus isolated.
02/12/24 03:59 C. difficile GDH Antigen & Toxins - Final
Feces/Stool C. difficile antigen positive, toxin negative.
Clostridium difficile present, but toxin not detected.
Patient may be a carrier, colonized with nontoxinogenic
strain or the level of toxin in sample is below detection
limits. This information should be used in conjunction with
the patient's clinical history.
02/10/24 15:26 Influenza Types A & B (MAKENNA) - Final
Nasal Swab Negative for Influenza A & B, NAAT
Negative results must be combined with clinical observations
and patient history.
Nucleic Acid Amplification test (NAAT)performed on the
[employer] platform.
Care Review
Plan reviewed with: Physician (Dr Sykes - duration of antibiotics)
[2024-02-15] MEDS: VISBIOME 2 CAP PO (09:28)
[2024-02-15] MEDS: PACERONE 200 MG PO (09:29)
[2024-02-15] MEDS: LOPRESSOR 12.5 MG PO ×2 (09:29→20:41)
[2024-02-15] MEDS: FIRVANQ 125 MG PO ×2 (09:31→20:41)
[2024-02-15] MEDS: CIPRO 500 MG PO (11:49)
[2024-02-15] MEDS: NOVOLOG FLEXPEN SC ×3 (11:49→17:40)
[2024-02-15] MEDS: TYLENOL 650 MG PO (11:49)
--- NOTE | 2024-02-15 12:26 | W.PN.ONC2 ---
Today's Communication / Plan
-
Will continue to collaborate with the hospitalist if/when pt is medically stable to consider transfer to [facility] in order to continue XRT. Alternatively, could resume RT as outpatient if d/c in next 1-2 days.
Impression
Impression
sepsis - unclear etiology
neutropenic fever
anal cancer -s/p mitomycin C/ infusional 5FU 01/28 - 02/01 - ongoing XRT
afib
anemia
thrombocytopenia
OSMANY on CKD
Plan
Plan
1. Sepsis / neutropenic fever
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
-antibiotics as per ID
-neutropenia resolved
2. Anal cancer s/p mitomycin C/ 5FU - 01/28 - 02/01 - w/ ongoing XRT
-component of cytopenias are likely related to recent chemotherapy administration
-w/ patient being critically ill - XRT on hold (gets at [facility]) and will explore transfer options once transfered out of ICU to continue curative intent XRT at [facility]
-cont supportive care
- Hold anticoagulation, antiplatelet, and nsaids for platelet count <50,000 -platelet count recoved to >100,000
Subjective/Objective
Chief Complaint
4 loose stools overnight and abdominal discomfort unchanged
Subjective
denies overt bleeding
Vital Signs:
Vital Signs
Temp Pulse Resp BP Pulse Ox
97.9 F 122 12 104/76 98
02/15/24 12:19 02/15/24 12:00 02/15/24 12:00 02/15/24 12:00 02/15/24 08:00
Lab Results:
Laboratory Data
WBC 8.1 10^3/uL (4.8-10.8) 02/15/24 07:55
Hgb 9.0 g/dL (12.0-16.0) L 02/15/24 07:55
Plt Count 158 10^3/uL (130-400) D 02/15/24 07:55
PT 23.1 Sec (11.4-14.6) H 02/11/24 03:03
INR 2.02 02/11/24 03:03
APTT 89.8 Sec (23.4-35.0) H 02/14/24 05:50
eGFR 27.37 02/15/24 04:00
Physical Exam
HEENT: No Jaundice
Cardiology: Irregular rate/rhythm (afib with tachycardia )
Pulmonary: Clear
GI: Soft
Extremities: No Edema
Neuro: Non Focal
Review of Systems
Review of Systems
notable for subjective, otherwise negative
[2024-02-15 14:03] LABS: Glucose - Point of Care 94 mg/dl (70-99)
--- NOTE | 2024-02-15 14:45 | PTCARENOTE ---
pt unable to void, pt bladder scanned for 515 ml. straight cathed per protocol for 500 ml urine.
--- NOTE | 2024-02-15 16:50 | PTCARENOTE ---
pt transferred to room 2133 on new bed. report given to 2N RN.
--- NOTE | 2024-02-15 17:01 | PTCARENOTE ---
pt received from ICU. AAOx3, meds including insulin pen brought from ICU. Neutropenic and contact precautions. nursing assessment complete
[2024-02-15 17:18] LABS: Glucose - Point of Care 68 mg/dl (70-99)
[2024-02-15 17:38] LABS: Glucose - Point of Care 70 mg/dl (70-99)
[2024-02-15 18:16] LABS: Glucose - Point of Care 86 mg/dl (70-99)
[2024-02-15 20:06] LABS: Glucose - Point of Care 164 mg/dl (70-99)
[2024-02-15] MEDS: LMX 4 1 APPLIC TOPICAL (20:43)
[2024-02-15 22:25] LABS: Glucose - Point of Care 154 mg/dl (70-99)
[2024-02-15] MEDS: LANTUS 0.2 UNITS SC (22:27)
[2024-02-15] MEDS: LIPITOR 40 MG PO (22:27)
[2024-02-16 03:01] LABS: Glucose - Point of Care 98 mg/dl (70-99)
[2024-02-16] MEDS: SYNTHROID 125 MCG PO (05:08)
[2024-02-16 06:52] LABS: Hematocrit 27.2 % (37.0-47.0); Hemoglobin 9.1 g/dL (12.0-16.0); Mean Corp Hgb Conc. 33.5 g/dL (33.0-37.0); Mean Corpuscular Hgb 26.8 pg (27.0-31.0); Mean Platelet Volume 10.6 fL (7.4-10.4); Platelet Count 162 10^3/uL (130-400); Red Cell Dist. Width 18.5 % (11.5-14.5); White Blood Cell Count 10.1 10^3/uL (4.8-10.8)
[2024-02-16 07:11] LABS: Blood Urea Nitrogen 52 mg/dl (7-17); Calcium 8.3 mg/dl (8.4-10.2); Carbon Dioxide 22 mmol/L (22-30); Chloride 107 mmol/L (98-107); Estimated Creatinine Clearance 32 ml/min; Glucose 72 mg/dl (70-99); Sodium 134 mmol/L (135-145); eGFR 31.27
--- NOTE | 2024-02-16 07:44 | W.PN.HOSP.TC ---
Addendum entered and electronically signed by Liam Sykes MD 02/16/24 10:05:
I saw and evaluated the patient. I reviewed the resident�s note and agree with findings and plan as documented in the resident�s note.
Patient reports abdominal discomfort followed by chest pressure over the last 5 min.
Gen: NAD, AAOx3.
Eyes: EOMI, PERRLA, no scleral icterus.
Neck: supple.
CV: irreg/irreg, +S1/S2
Resp: CTAB, no rales, wheezes, or rhonchi.
Abd: +BS, soft, NT, ND
Skin: No rashes.
Neuro: CN 2-12 intact, non-focal.
Psych: Normal mood and affect.
02/10/24 16:10 Blood/Venous Blood Culture - Final
No Growth - Final Report
02/10/24 16:10 Blood/Venous Blood Culture - Final
No Growth - Final Report
02/12/24 03:59 Feces/Stool Salmonella/Shigella Culture - Final
No Salmonella, Shigella, Aeromonas or Plesiomonas species
isolated.
02/12/24 03:59 Feces/Stool Campylobacter Culture - Final
No Campylobacter species isolated.
02/12/24 03:59 Feces/Stool Shiga Toxin Test - Final
No E. coli Shiga Toxin 1 or 2 detected.
02/10/24 18:02 Urine Urine Culture - Final
Escherichia coli - ESBL
02/11/24 09:55 Nose MRSA Screen - Final
No Methicillin Resistant Staphylococcus aureus isolated.
02/12/24 03:59 Feces/Stool C. difficile GDH Antigen & Toxins - Final
C. difficile antigen positive, toxin negative.
Clostridium difficile present, but toxin not detected.
Patient may be a carrier, colonized with nontoxinogenic
strain or the level of toxin in sample is below detection
limits. This information should be used in conjunction with
the patient's clinical history.
02/10/24 15:26 Nasal Swab Influenza Types A & B (MAKENNA) - Final
Negative for Influenza A & B, NAAT
Negative results must be combined with clinical observations
and patient history.
Nucleic Acid Amplification test (NAAT)performed on the
[employer] ID NOW platform.
Septic shock and neutropenic fever due to ESBL E coli UTI:
-Fevers and neutropenia/leukopenia have resolved, off pressors
-was on meropenem, now on Cipro through 02/20/24
-Continue prophylactic PO Vanco (C diff Ag POS) infectious disease
Afib with RVR:
-was on Amio gtt, now transitioned to PO Amio and BB
-Echo showed normal EF, moderate mitral stenosis moderate to severe tricuspid regurgitation with pulmonary hypertension
-cont Eliquis
-cardiology following. Case discussed with Dr. Zelaya this AM, including discussion about current chest pressure complaint. He reports the patient is medically cleared for discharge. No further workup at this time.
Anal CA:
-transfer to [facility] today for XRT
Non-AG met acidosis: cont PO HCO3-
Mild hyponatremia
CKD3a
Medically cleared for transfer to [facility] for radiation therapy.
Total time spent on d/c = 40 min. This included today's physical exam, progress note, review of laboratory and diagnostic data, preparation of discharge documents and prescriptions, and discussions about the pt's hospital course and discharge plan
with the patient and other medical transcriber involved in the patient's care.
Original Note:
Today's Communication/Plan
-
Transfer to [facility]
Assessment / Plan
Assessment / Plan
73-year-old female with anal cancer on chemotherapy admitted with generalized weakness. Also had several days of poor appetite and poor p.o. intake. She had decreased urine output
Septic Shock:
Secondary to UTI. Neutropenic fever.
Off pressors
CXR: No acute cardiopulmonary process,
Blood cxs x2: No growth
Urinalysis unremarkable, recent hx of Ecoli (ESBL). Urine cultures positive for E. coli (ESBL).
C. difficile antigen positive toxin negative. Stool cx negative
IV Vanc discontinued. Continue p.o. vancomycin for ppx + Ciprofloxacin for ESBL coverage, per ID
Appreciate ID input
Anal cancer:
-Receives chemotherapy and radiation with [facility]. Last chemo 1-2 weeks ago, last radiation 1 week ago
-Ongoing XRT with [facility]
-appreciate hemonc input, transfer to [facility] to continue XRT
-Pain control
Pancytopenia
Likely secondary to chemotherapy. Neutropenia, thrombocytopenia, leukopenia resolved
-Anemia stable. Will transfuse as needed
-Appreciate heme-onc input
Afib
with RVR on presentation
-Continue Eliquis
-PO Amioderone, 25mg Metoprolol per cardiology
-Appreciate cardiology input
Metabolic acidosis:
None anion gap.
-Continue bicarb, PO
-Follow BMP
OSMANY on CKD3b
Oliguria, Cr 2.0. Baseline cr 1.6
FeNa 0%. Prerenal, secondary to shock. Improving. Cr 1.7
-Follow BMP
Hypokalemia:
Repleted, resolved
Hypomagnesemia:
Repleted, resolved
Hyponatremia: improving
-Likely fluid overload from IVF
-Follow BMP
Hypertension:
Restart metoprolol given afib
Diabetes:
Hold Home meds
-ISS
Hyperlipidemia
-Continue Statin
Hx of CHF:
-Metoprolol and furosemide held for shock
Pacemaker placement 2022
Hx of Stroke
Obesity
History of ESBL UTI
GERD/gastritis-add PPI
History of right pleural effusion with thoracentesis in the past
History of lower GI bleed while on anticoagulation
History of prior intracranial hemorrhage-details unclear
Hypoalbuminemia
DVT prophylaxis: SCDs
Code Status; Full Code
Anticipated Discharge: Today
Subjective/Interval History
-
Date of Service: February 16, 2024
Objective Data
-
Labs:
Laboratory Results
02/16/24
06:26
WBC 10.1
Hgb 9.1 L
Hct 27.2 L
Plt Count 162
Sodium 134 L
Potassium 4.0
Chloride 107
Carbon Dioxide 22
BUN 52 H
Creatinine 1.7 H
Glucose 72
Calcium 8.3 L
Vital Signs:
Vital Signs
Temp Pulse Resp BP Pulse Ox
97.7 F 97 16 113/71 100
02/15/24 23:36 02/15/24 23:36 02/15/24 23:36 02/15/24 23:36 02/15/24 23:36
I&O
02/15/24 02/16/24 02/17/24
06:59 06:59 06:59
Intake Total 796.5 / 813.2 450.1 / 450.1
Output Total 700 / 700 3400 / 3400
Balance 96.5 / 113.2 -2949.9 / -2949.9
Review of Systems
-
Respiratory: Reports No Symptoms; Denies Cough or Trouble Breathing
Cardiac: Reports No Symptoms; Denies Chest Pain or Palpitations
Abdomen/GI: Reports Diarrhea and Other (anorectal pain)
Physical Exam
-
General: Pain (buttock/anorectal)
HEENT: Moist Mucous Membranes
Respiratory: Clear to Auscultation and Non Labored Respirations; Negative Wheezes, Rales, Rhonchi or Crackles
Cardiac: S1/S2 and Irregular Rhythm; Negative Murmur, Rub or Calf Tenderness
GI: Soft, Nontender, Nondistended and Normal Bowel Sounds
Musculoskeletal: No Clubbing, No Cyanosis, Edema, Right Lower Extrem (2+) and Edema, Left Lower Extrem (2+)
Skin: Warm and Dry
Neuro: Awake, Alert and Oriented
Psych: Calm
[2024-02-16 07:50] VITALS: BP 115/74
[2024-02-16 07:55] VITALS: BMI 39.7
[2024-02-16 07:58] LABS: Glucose - Point of Care 66 mg/dl (70-99)
[2024-02-16 08:08] VITALS: BMI 39.5
[2024-02-16] MEDS: NOVOLOG FLEXPEN-MODERATE RESISTANCE SC (08:29)
[2024-02-16] MEDS: NOVOLOG FLEXPEN SC ×2 (08:29→13:50)
[2024-02-16] MEDS: FLOMAX 0.4 MG PO (08:33)
[2024-02-16] MEDS: VITAMIN D3 (cholecalciferol) 25 MCG PO (08:33)
[2024-02-16] MEDS: LOPRESSOR 12.5 MG PO ×2 (08:33→10:38)
[2024-02-16] MEDS: VITAMIN B-12 1000 MCG PO (08:33)
[2024-02-16 08:34] LABS: Glucose - Point of Care 85 mg/dl (70-99)
[2024-02-16] MEDS: FIRVANQ 125 MG PO ×2 (08:34→20:28)
[2024-02-16] MEDS: ELIQUIS 5 MG PO ×2 (08:34→20:28)
[2024-02-16] MEDS: VISBIOME 2 CAP PO (08:34)
[2024-02-16] MEDS: SODIUM BICARBONATE 650 MG PO ×3 (08:34→22:48)
[2024-02-16] MEDS: PROTONIX 40 MG PO (08:34)
[2024-02-16] MEDS: PACERONE 200 MG PO (08:34)
[2024-02-16] MEDS: QUESTRAN 4 grams in 100 grams AQUAPHOR 1 APPLIC TOPICAL ×2 (08:35→20:28)
--- NOTE | 2024-02-16 08:44 | W.PN.ONC2 ---
Today's Communication / Plan
-
Dispo planning in progress. If requires continued inpt level of care then transfer to [facility] to continue XRT. If stable for discharge then needs to continue XRT outpatient.
Impression
Impression
sepsis - resolved
neutropenic fever -resolved
anal cancer -s/p mitomycin C/ infusional 5FU 01/28 - 02/01 - ongoing XRT
afib
anemia
thrombocytopenia -resolved
OSMANY on CKD
Plan
Plan
1. Sepsis / neutropenic fever -resolved
-antibiotics as per ID
-neutropenia resolved
2. Anal cancer s/p mitomycin C/ 5FU - 01/28 - 02/01 - w/ ongoing XRT
-component of cytopenias are likely related to recent chemotherapy administration, neutropenia and thrombocytopenia resolved
-w/ patient being critically ill - XRT on hold (gets at [facility]) and will explore transfer options once transfered out of ICU to continue curative intent XRT at [facility]
-cont supportive care
Subjective/Objective
Chief Complaint
no new complaints
Subjective
HR controlled overnight off amio gtt
on doac, denies bleeding
small brown BM this morning
Vital Signs:
Vital Signs
Temp Pulse Resp BP Pulse Ox
97.8 F 113 18 115/74 100
02/16/24 07:50 02/16/24 08:33 02/16/24 07:50 02/16/24 08:33 02/16/24 07:50
Lab Results:
Laboratory Data
WBC 10.1 10^3/uL (4.8-10.8) 02/16/24 06:26
Hgb 9.1 g/dL (12.0-16.0) L 02/16/24 06:26
Plt Count 162 10^3/uL (130-400) 02/16/24 06:26
PT 23.1 Sec (11.4-14.6) H 02/11/24 03:03
INR 2.02 02/11/24 03:03
APTT 89.8 Sec (23.4-35.0) H 02/14/24 05:50
eGFR 31.27 02/16/24 06:26
Physical Exam
HEENT: No Jaundice
Cardiology: Irregular rhythm
Pulmonary: Clear
GI: Soft
Extremities: No Edema
Neuro: Non Focal
Review of Systems
Review of Systems
review of systems notable for subjective, otherwise negative
--- NOTE | 2024-02-16 09:54 | W.PN.CD ---
Today's Communication / Plan
-
-Continue amiodarone 200 mg PO daily.
-Will increase metoprolol to tartrate to 25 mg BID; unable to increase further due to blood pressure limitations.
-Continue Eliquis.
-No further recommendations from a cardiac standpoint; Cardiology will remain available on an as-needed basis.
Impression / Plan
-
-
73-year-old female with persistent A-fib s/p cardioversion (11/27/2023; on Eliquis), tachycardia-bradycardia syndrome s/p dual-chamber pacemaker placement-2022, chronic HFpEF, mitral stenosis, prior CVA-1994, 2005, previous subdural/subarachnoid
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
week-found to have pancytopenia and neutropenic fever, currently in septic shock. Cardiology consulted for A-fib with RVR. (known to Dr. Hsu, her primary older worker specialist),
Anal cancer/septic shock:
-Clinically improved; antibiotics as per ID.
-Possible transfer to [facility] for XRT.
AFib with RVR:
-Continue amiodarone 200 mg PO daily.
-Will increase metoprolol to tartrate to 25 mg BID; unable to increase further due to blood pressure limitations.
-Continue Eliquis.
Moderate mitral stenosis/moderate to severe TR (PASP 75-80 mmHg):
-The patient is fairly compensated on examination.
-No standing diuretic due to elevated BUN/creatinine.
Chronic HFpEF:
-Volume status is relatively stable as above.
Systemic hypertension:
-Controlled.
Tachybradycardia syndrome:
-S/P dual chamber PPM 12/05/2022
Pancytopenia
CKD3b
Type II DM
Squamous cell carcinoma of the anus
History of CVA x 2
History of ESBL UTI
GERD
History of right pleural effusion s/p thoracocentesis in the past.
Subjective-
No major events overnight.
Data reviewed-
EKG-02/10/2024-atrial fibrillation with RVR.
Telemetry-02/13/20241370-[id number]-[id number] heart rate 102, A-fib with RVR with some aberrations.
Echocardiogram-11/27/2023-LVEF 55 to 60%, biatrial enlargement, mitral annulus calcification with mitral stenosis, mild to mod MR, TR.
11/27/2023-s/p cardioversion.
12/05/2022-[employer] dual chamber pacemaker placement.
Physical Exam
Vital Signs/Labs
Vital Signs
Temp Pulse Resp BP Pulse Ox
97.8 F 113 18 115/74 100
02/16/24 07:50 02/16/24 08:33 02/16/24 07:50 02/16/24 08:33 02/16/24 07:50
02/15/24 02/16/24 02/17/24
06:59 06:59 06:59
Actual Weight 97.9 kg
02/16/24 06:26
02/16/24 06:26
PT 23.1 Sec (11.4-14.6) H 02/11/24 03:03
INR 2.02 02/11/24 03:03
APTT 89.8 Sec (23.4-35.0) H 02/14/24 05:50
Magnesium 2.1 mg/dl (1.6-2.3) 02/15/24 04:00
Physical Exam
Constitutional: No acute distress and Comfortable
EENT: Anicteric
Cardiovascular: Rhythm/rate is irregular, Pedal edema present (Trace-1+), Systolic murmur present (2/6) and S1S2 is normal
Respiratory: Respiratory effort normal and Lungs clear to auscul.
GI: Soft
Neuro/Psych: AO x 3
Other: Skin (Warm)
Data Reviewed
-
Date of Service: February 16, 2024
EKG: Tracing Personally Visualized and interpreted (Telemetry: Atrial fibrillation)
Echo: Tracing Personally Visualized and interpreted (EF 55-60%; moderate mitral stenosis; moderate to severe tricuspid regurgitation, PAP 75-80 mmHg.) and Report Reviewed by me
Medical Tests (PFT, Pathology etc): Discussed with Physician (Primary Hospitalist team)
Labs: Labs Reviewed by me
--- NOTE | 2024-02-16 10:24 | W.DCSUMMARY ---
Discharge Summary
Discharge Data
Date of Admission: 02/10/24
Date of Discharge: 02/16/24
-
Pending Results: No
Hospital Course
Discharge Physician: Hansa Saunders MD; Liam Sykes MD
Primary discharge diagnosis: Septic shock secondary to UTI, neutropenic fever, A-fib with rapid ventricular response, metabolic acidosis, acute kidney injury, hyponatremia, pancytopenia, hypokalemia, hypomagnesemia,
Chronic conditions prior to admission: Squamous cell anal cancer, CKD stage IIIb, hypertension, diabetes type 2, hyperlipidemia, heart failure, history of stroke,
Hospital Course: 73-year-old female with history of anal cancer status post chemotherapy/radiation (treated at [facility]), presented with poor p.o. intake, generalized weakness, occasional chest discomfort, chills/subjective fevers. She
also complained of loose stools. Upon arrival he was febrile tachycardic and noted to be pancytopenic. She was pancultured and given IV fluids in the ED, with cefepime/vancomycin started in the ED. She developed hypotension in the ED requiring
pressors and was admitted to ICU. Meropenem was started given patient's history of ESBL UTI, and IV vancomycin was started.
Stool cultures and blood cultures were negative. Urine culture revealed E. coli (ESBL) and stool study showed C. difficile antigen positive/toxin negative.
P.o. vancomycin was added. IV vancomycin was discontinued and Meropenem was changed to Ciprofloxacin based on sensitivities. A-fib + RVR was managed by cardiology with Amioderone drip/oral and eventually also resumption of Metoprolol as patient's
blood pressure stabilized after weaning off pressors.
Pain was managed with respect to patient's preference to avoid IV/PO narcotics.
There was steady resolution of OSMANY with improving Cr.
Pancytopenia steadily improved with resolution of leukopenia, neutropenia, and thrombocytopenia. Patient was then transferred to [facility] to continue curative XRT for anal cancer.
Relevant Data:
Peripheral vasc US 02/11: No evidence of deep venous thrombosis in the bilateral lower extremities.
CT abd/pelvis 02/09: No clear evidence for an acute process in the abdomen or pelvis given the significant limitations of the lack of oral and intravenous contrast. Soft tissue thickening at the level of the anus compatible with the patient's known
anal carcinoma.
CXR 02/09: No acute cardiopulmonary process
Echocardiogram 02/14: -LV ejection fraction is 55-60%. No regional wall motion abnormalities are seen.
-Enlarged right ventricular size. Normal right ventricular systolic function. Pacer wire seen in right ventricle.
-Moderately to severely dilated left atrium.
-Moderate mitral stenosis; peak/mean gradient are 19/7 mHg.
-Mild to moderate mitral regurgitation.
-Aortic sclerosis without stenosis. Trace aortic regurgitation.
-Moderate to severe, eccentric tricuspid regurgitation. Estimated pulmonary artery pressure of 75-80 mmHg
Consults:
Cardiology
Infectious disease
oncology
Wound care
Discharge Plan
-
Patient Disposition: Acute [facility]
Discharge Orders:
Discharge Patient (As Directed); Ordered 02/16/24
Ordered By: Hansa Saunders
Discharge Date and Time
Print Language: BELARUSIAN
[2024-02-16 10:46] LABS: Glucose - Point of Care 108 mg/dl (70-99)
[2024-02-16] MEDS: CIPRO 500 MG PO (10:48)
[2024-02-16 10:49] VITALS: BP 104/65
[2024-02-16 12:55] LABS: Glucose - Point of Care 168 mg/dl (70-99)
[2024-02-16] MEDS: NOVOLOG FLEXPEN-MODERATE RESISTANCE 1 UNITS SC ×2 (13:53→17:19)
--- NOTE | 2024-02-16 15:04 | CM ---
Reviewed the chart notes and spoke with the patient at the bedside. IMM reviewed. The patient was declined for transfer to [facility]. Patient will discharge to home with VN and outpatient rxt at [facility]. Patient takes an Uber to and from treatment.
Per daughter, all the cars in the house are in need of repair. CM continues to be available to patient/family and is monitoring medical plan for needs at discharge.
Plan: Discharge to home with VN services.
[2024-02-16 15:19] VITALS: BP 111/69
--- NOTE | 2024-02-16 15:44 | WOUNDNOTE ---
WOC RN NOTE: Patient visited to follow up on buttock wounds and to assess effectiveness of new treatment. Patient was visiting with family at time of visit. RN Pepito recently performed wound care and continence care on patient. Per Pepito the wound is
described as stable since prior assessment. Will continue to follow as needed.
[2024-02-16 17:15] LABS: Glucose - Point of Care 193 mg/dl (70-99)
[2024-02-16] MEDS: NOVOLOG FLEXPEN 5 UNITS SC (17:19)
[2024-02-16 19:25] VITALS: BP 133/76
[2024-02-16] MEDS: LOPRESSOR 25 MG PO (20:28)
[2024-02-16] MEDS: LMX 4 1 APPLIC TOPICAL (20:29)
[2024-02-16] MEDS: TYLENOL 650 MG PO (21:35)
[2024-02-16 22:07] LABS: Glucose - Point of Care 293 mg/dl (70-99)
[2024-02-16] MEDS: LANTUS 0.2 UNITS SC (22:47)
[2024-02-16] MEDS: LIPITOR 40 MG PO (22:48)
[2024-02-16 23:45] VITALS: BP 108/63
[2024-02-17 04:04] VITALS: BP 126/61
[2024-02-17 06:27] LABS: Hematocrit 24.9 % (37.0-47.0); Hemoglobin 8.3 g/dL (12.0-16.0); Mean Corp Hgb Conc. 33.3 g/dL (33.0-37.0); Mean Corpuscular Hgb 26.3 pg (27.0-31.0); Mean Corpuscular Volume 78.8 fL (81.0-99.0); Mean Platelet Volume 11.2 fL (7.4-10.4); Platelet Count 197 10^3/uL (130-400); Red Blood Cell Count 3.16 10^6/uL (4.20-5.40); Red Cell Dist. Width 18.6 % (11.5-14.5); White Blood Cell Count 9.8 10^3/uL (4.8-10.8)
[2024-02-17] MEDS: ROXICODONE 5 MG PO (06:29)
[2024-02-17] MEDS: SYNTHROID 125 MCG PO (06:30)
[2024-02-17 06:51] LABS: Blood Urea Nitrogen 47 mg/dl (7-17); Calcium 7.9 mg/dl (8.4-10.2); Carbon Dioxide 23 mmol/L (22-30); Chloride 108 mmol/L (98-107); Estimated Creatinine Clearance 34 ml/min; Glucose 183 mg/dl (70-99); Potassium 4.1 mmol/L (3.5-5.1); Sodium 136 mmol/L (135-145); eGFR 33.63
[2024-02-17 07:55] VITALS: BP 105/74
[2024-02-17 08:01] LABS: Glucose - Point of Care 217 mg/dl (70-99)
--- NOTE | 2024-02-17 08:02 | W.PN.HOSP.TC ---
Addendum entered and electronically signed by Liam Sykes MD 02/17/24 13:29:
Total time spent on d/c = 35 min. This included today's physical exam, progress note, review of laboratory and diagnostic data, preparation of discharge documents and prescriptions, and discussions about the pt's hospital course and discharge plan
with the patient and other medical billing coordinator involved in the patient's care.
Original Note:
Today's Communication/Plan
-
d/c
Assessment / Plan
Assessment / Plan
Gen: NAD, awake and alert
Eyes: EOMI, PERRLA, no scleral icterus.
Neck: supple.
CV: Remains irreg/irreg, +S1/S2
Resp: Remains CTAB, no rales, wheezes, or rhonchi.
Abd: +BS, soft, NT, ND
Skin: No rashes.
Neuro: CN 2-12 intact, non-focal.
Psych: Normal mood and affect.
02/10/24 16:10 Blood/Venous Blood Culture - Final
No Growth - Final Report
02/10/24 16:10 Blood/Venous Blood Culture - Final
No Growth - Final Report
02/12/24 03:59 Feces/Stool Salmonella/Shigella Culture - Final
No Salmonella, Shigella, Aeromonas or Plesiomonas species
isolated.
02/12/24 03:59 Feces/Stool Campylobacter Culture - Final
No Campylobacter species isolated.
02/12/24 03:59 Feces/Stool Shiga Toxin Test - Final
No E. coli Shiga Toxin 1 or 2 detected.
02/10/24 18:02 Urine Urine Culture - Final
Escherichia coli - ESBL
02/11/24 09:55 Nose MRSA Screen - Final
No Methicillin Resistant Staphylococcus aureus isolated.
02/12/24 03:59 Feces/Stool C. difficile GDH Antigen & Toxins - Final
C. difficile antigen positive, toxin negative.
Clostridium difficile present, but toxin not detected.
Patient may be a carrier, colonized with nontoxinogenic
strain or the level of toxin in sample is below detection
limits. This information should be used in conjunction with
the patient's clinical history.
02/10/24 15:26 Nasal Swab Influenza Types A & B (MAKENNA) - Final
Negative for Influenza A & B, NAAT
Negative results must be combined with clinical observations
and patient history.
Nucleic Acid Amplification test (NAAT)performed on the
[employer] NOW platform.
Echo 02/15/24:
-LV ejection fraction is 55-60%. No regional wall motion abnormalities are
seen.
-Enlarged right ventricular size. Normal right ventricular systolic function.
Pacer wire seen in right ventricle.
-Moderately to severely dilated left atrium.
-Moderate mitral stenosis; peak/mean gradient are 19/7 mHg.
-Mild to moderate mitral regurgitation.
-Aortic sclerosis without stenosis. Trace aortic regurgitation.
-Moderate to severe, eccentric tricuspid regurgitation. Estimated pulmonary
artery pressure of 75-80 mmHg.
Compared to previous echo on 09/29/2022, the degree of tricuspid regurgitation
has worsened (previously mild) with a increase in PASP (previously 68 mmHg).
Septic shock and neutropenic fever due to ESBL E coli UTI:
-Fevers and neutropenia/leukopenia have resolved, off pressors
-was on meropenem, now on Cipro through 02/20/24
-Continue prophylactic PO Vanco (C diff Ag POS) as per infectious disease
Afib with RVR:
-was on Amio gtt, now transitioned to PO Amio and BB
-Echo showed normal EF, moderate mitral stenosis moderate to severe tricuspid regurgitation with pulmonary hypertension
-cont Eliquis
-cardiology saw in consult and have cleared the pt for discharge
Other problems:
Essential hypertension: Continue metoprolol
HLD: Cont statin
Chronic HFpEF: cont BB. Lasix was held with septic shock
DM2: Cont Lantus/premeal Novolog, SSI/accuchecks
Anal CA: resume XRT after discharge
Non-AG met acidosis: resolved with PO HCO3-
Mild hyponatremia, resolved
CKD3a
Pancytopenia, leukopenia/thrombocytopenia have resolved
OSMANY on CDK3b, resolved
Hypokalemia, resolved
Hypomagnesemia, resolved
h/o PPM 2022
Morbid obesity due to excess calories
h/o CVA: cont Eliquis/statin
GERD: Cont PPI
FULL/Eliquis
Medically cleared for discharge. Case management aware.
Anticipated Discharge: Today
Subjective/Interval History
-
Date of Service: February 17, 2024
No new complaints.
Objective Data
-
Labs:
Laboratory Results
02/17/24
06:11
WBC 9.8
Hgb 8.3 L
Hct 24.9 L
Plt Count 197 D
Sodium 136
Potassium 4.1
Chloride 108 H
Carbon Dioxide 23
BUN 47 H
Creatinine 1.6 H
Glucose 183 H
Calcium 7.9 L
Vital Signs:
Vital Signs
Temp Pulse Resp BP Pulse Ox
98.0 F 114 18 105/74 97
02/17/24 07:55 02/17/24 07:55 02/17/24 07:55 02/17/24 07:55 02/17/24 07:55
I&O
02/16/24 02/17/24 02/18/24
06:59 06:59 06:59
Intake Total 450.1 / 450.1 480 / 480
Output Total 3400 / 3400 750 / 750 1850 / 1850
Balance -2949.9 / -2949.9 -270 / -270 -1850 / -1850
[2024-02-17 08:08] VITALS: BMI 39.5
[2024-02-17] MEDS: NOVOLOG FLEXPEN-MODERATE RESISTANCE 3 UNITS SC (09:16)
[2024-02-17] MEDS: NOVOLOG FLEXPEN 5 UNITS SC ×3 (09:17→17:47)
[2024-02-17] MEDS: PROTONIX 40 MG PO (09:18)
[2024-02-17] MEDS: ELIQUIS 5 MG PO (09:18)
[2024-02-17] MEDS: FLOMAX 0.4 MG PO (09:18)
[2024-02-17] MEDS: VITAMIN D3 (cholecalciferol) 25 MCG PO (09:18)
[2024-02-17] MEDS: PACERONE 200 MG PO (09:19)
[2024-02-17] MEDS: VITAMIN B-12 1000 MCG PO (09:19)
[2024-02-17] MEDS: LOPRESSOR 25 MG PO (09:19)
[2024-02-17] MEDS: VISBIOME 2 CAP PO (09:19)
[2024-02-17] MEDS: CIPRO 500 MG PO (09:19)
[2024-02-17] MEDS: FIRVANQ 125 MG PO (09:31)
[2024-02-17] MEDS: SODIUM BICARBONATE PO (09:44)
[2024-02-17] MEDS: QUESTRAN 4 grams in 100 grams AQUAPHOR 1 APPLIC TOPICAL (11:01)
[2024-02-17 11:55] VITALS: BP 110/65
[2024-02-17 12:24] LABS: Glucose - Point of Care 173 mg/dl (70-99)
[2024-02-17] MEDS: NOVOLOG FLEXPEN-MODERATE RESISTANCE 1 UNITS SC ×2 (12:43→17:46)
[2024-02-17 15:30] VITALS: BP 108/73
[2024-02-17 16:28] VITALS: BP 108/73
[2024-02-17 17:30] LABS: Glucose - Point of Care 170 mg/dl (70-99)
--- NOTE | 2024-02-19 20:09 | W.DCSUMMARY ---
Discharge Summary
Discharge Data
Date of Admission: 02/10/24
Date of Discharge: 02/17/24
-
Pending Results: No
Hospital Course
Discharge Physician: Liam Sykes MD
Primary discharge diagnosis: Septic shock secondary to ESBL Ecoli UTI, neutropenic fever, A-fib with rapid ventricular response, metabolic acidosis, acute kidney injury, hyponatremia, pancytopenia, hypokalemia, hypomagnesemia,
Chronic conditions prior to admission: Squamous cell anal cancer, CKD stage IIIb, hypertension, diabetes type 2, hyperlipidemia, heart failure, history of stroke,
Hospital Course: 73-year-old female with history of anal cancer status post chemotherapy/radiation (treated at [facility]), presented with poor p.o. intake, generalized weakness, occasional chest discomfort, chills/subjective fevers. She
also complained of loose stools. Upon arrival he was febrile tachycardic and noted to be pancytopenic. She was pancultured and given IV fluids in the ED, with cefepime/vancomycin started in the ED. She developed hypotension in the ED requiring
pressors and was admitted to ICU. Meropenem was started given patient's history of ESBL UTI, and IV vancomycin was started.
Stool cultures and blood cultures were negative. Urine culture revealed E. coli (ESBL) and stool study showed C. difficile antigen positive/toxin negative.
P.o. vancomycin was added. IV vancomycin was discontinued and Meropenem was changed to Ciprofloxacin based on sensitivities. A-fib + RVR was managed by cardiology with Amioderone drip/oral and eventually also resumption of Metoprolol as patient's
blood pressure stabilized after weaning off pressors.
Pain was managed with respect to patient's preference to avoid IV/PO narcotics.
There was steady resolution of OSMANY with improving Cr.
Pancytopenia steadily improved with resolution of leukopenia, neutropenia, and thrombocytopenia.
Patient was then discharged to home with visiting nurse on 02/16. Recommended to repeat BMP, magnesium, CBC in 4 days from discharge, prescription from PCP. She will continue XRT with [facility].
Relevant Data:
Peripheral vasc US 02/11: No evidence of deep venous thrombosis in the bilateral lower extremities.
CT abd/pelvis 02/09: No clear evidence for an acute process in the abdomen or pelvis given the significant limitations of the lack of oral and intravenous contrast. Soft tissue thickening at the level of the anus compatible with the patient's known
anal carcinoma.
CXR 02/09: No acute cardiopulmonary process
Echocardiogram 02/14: -LV ejection fraction is 55-60%. No regional wall motion abnormalities are seen.
-Enlarged right ventricular size. Normal right ventricular systolic function. Pacer wire seen in right ventricle.
-Moderately to severely dilated left atrium.
-Moderate mitral stenosis; peak/mean gradient are 19/7 mHg.
-Mild to moderate mitral regurgitation.
-Aortic sclerosis without stenosis. Trace aortic regurgitation.
-Moderate to severe, eccentric tricuspid regurgitation. Estimated pulmonary artery pressure of 75-80 mmHg
Consults:
Cardiology
Infectious disease
oncology
Wound care
Discharge Plan
-
Patient Disposition: Home with Home Care
Discharge Diagnosis/Procedures: Septic shock and neutropenic fever due to extended spectrum beta-lactamase Escherichia coli urinary tract infection, atrial fibrillation with rapid ventricular response
Condition: Good
Diet: 2 Gram Sodium, Diabetic, Carb Controlled and Other diet
Additional Diets: Fluid restrict to 1200 cc/day
Activity: With assistance
Driving Restrictions: No driving
Blood Work: BMP, magnesium, CBC in 4 days, prescription from PCP
Other Services: VN
Specialty Instructions: Weigh Daily- Call MD for wt gain/loss 3 lbs overnight/5 lbs in 1 week
Activity Restrictions/Additional Instructions:
Wound Care Instructions
shaina rectal skin: clean with mild soap and water or warm water, apply Cholestyramine with Aquaphor barrier cream as directed. lidocaine gel inbtw applications prn pain.
Referrals:
Pallavi Clarke PA-C [Family Provider] - in less than 1 week
Prescriptions:
New
ciprofloxacin HCl 500 mg Tablet
500 mg PO Q24H Qty: 7 0RF
vancomycin 125 mg capsule
125 mg PO BID Qty: 14 0RF
pantoprazole 40 mg Tablet,Delayed Release (Dr/Ec)
40 mg PO DAILY Qty: 30 0RF
metoprolol tartrate 25 mg Tablet
25 mg PO BID Qty: 60 0RF
Lactobac/Bifidobac [Visbiome]
2 cap PO DAILY Qty: 60 0RF
Continued
tamsulosin 0.4 MG capsule
0.4 mg PO DAILY
cholecalciferol (vitamin D3) 1,000 UNITS tablet
1,000 units PO DAILY
atorvastatin 40 mg Tablet
40 mg PO HS
levothyroxine 125 MCG tablet
125 mcg PO DAILY
Eliquis 5 mg Tablet
5 mg PO BID Qty: 60 0RF
furosemide 40 mg Tablet
40 mg PO DAILY Qty: 30 0RF
potassium chloride 20 mEq Tablet Extended Release
20 meq PO HS
polyethylene glycol 3350 [HealthyLax] 17 gram Powder In Packet
17 g PO DAILY Qty: 30 0RF
Patient Comments:
Pt not completely sure.
cyanocobalamin (vitamin B-12) 1,000 mcg Tablet
1,000 mcg PO DAILY Qty: 30 0RF
hydrocortisone acetate 25 mg Suppository
25 mg VT HS Qty: 7 0RF
amiodarone 200 mg tablet
200 mg PO DAILY Qty: 30 0RF
glipizide 5 mg tablet
5 mg PO DAILY Qty: 30 0RF
Rx Instructions:
TAKE Glipizide 5mg once a day in AM if her Blood glucose is >150 before lunch and dinner.
insulin degludec [Tresiba FlexTouch U-100] 100 UNIT/ML insulin pen
15 unit SQ HS Qty: 0 0RF
Discontinued
metoprolol succinate 25 mg Tablet Extended Release 24 Hr
25 mg PO BID Qty: 60 0RF
Discharge Orders:
Discharge Patient (As Directed); Ordered 02/17/24
Ordered By: Liam Skyes
Discharge Date and Time
Discharge Date/Time: 02/17/24 18:14
Print Language: HONG KONGER
== END 2024-02-17 18:14 | disposition home health service (06) | DRG 871 ==
LOC: 2 NORTH 21:13
PROVIDERS: Emergency Medicine; Hospitalist; Nurse Practitioner Primary Care; Physician Assistant; Student in an Organized Health Care Education/Training Program; ADMITTING PHYSICIAN Internal Medicine; ATTENDING PHYSICIAN Internal Medicine; CONSULT PHYSICIAN Internal Medicine Hematology & Oncology; CONSULT PHYSICIAN Student in an Organized Health Care Education/Training Program; EMERGENCY PHYSICIAN Emergency Medicine; FAMILY PHYSICIAN Physician Assistant; OTHER PHYSICIAN Internal Medicine Critical Care Medicine
PROC: 3E033XZ Introduction of Vasopressor into Peripheral Vein, Percutaneous Approach (ICD-10-PCS; 2024-02-10)
PROC: 02HV33Z Insertion of Infusion Device into Superior Vena Cava, Percutaneous Approach (ICD-10-PCS; 2024-02-10)
DX: A41.51 Sepsis due to Escherichia coli [E. coli] (principal); D61.810 Antineoplastic chemotherapy induced pancytopenia; R65.21 Severe sepsis with septic shock; N39.0 Urinary tract infection, site not specified; I13.0 Hypertensive heart and chronic kidney disease with heart failure and stage 1 through stage 4 chronic kidney disease, or unspecified chronic kidney disease; I50.32 Chronic diastolic (congestive) heart failure; C21.0 Malignant neoplasm of anus, unspecified; I48.19 Other persistent atrial fibrillation; E87.20 Acidosis, unspecified; N17.9 Acute kidney failure, unspecified; E11.22 Type 2 diabetes mellitus with diabetic chronic kidney disease; T45.1X5A Adverse effect of antineoplastic and immunosuppressive drugs, initial encounter; I49.5 Sick sinus syndrome; E78.00 Pure hypercholesterolemia, unspecified; R50.81 Fever presenting with conditions classified elsewhere; N18.32 Chronic kidney disease, stage 3b; E11.649 Type 2 diabetes mellitus with hypoglycemia without coma; K21.9 Gastro-esophageal reflux disease without esophagitis; I08.1 Rheumatic disorders of both mitral and tricuspid valves; E03.9 Hypothyroidism, unspecified; E87.6 Hypokalemia; E83.42 Hypomagnesemia; E88.09 Other disorders of plasma-protein metabolism, not elsewhere classified; R19.7 Diarrhea, unspecified; D63.1 Anemia in chronic kidney disease; Z95.0 Presence of cardiac pacemaker; Z86.73 Personal history of transient ischemic attack (TIA), and cerebral infarction without residual deficits; Z79.4 Long term (current) use of insulin; Z79.84 Long term (current) use of oral hypoglycemic drugs; E66.01 Morbid (severe) obesity due to excess calories; Z68.39 Body mass index [BMI] 39.0-39.9, adult; Z79.899 Other long term (current) drug therapy; Z92.3 Personal history of irradiation; Z88.2 Allergy status to sulfonamides; Z79.01 Long term (current) use of anticoagulants; Z79.890 Hormone replacement therapy; Z11.52 Encounter for screening for COVID-19
CPT/HCPCS: 71046; 74176; 80048; 80053; 80202; 81003; 81015; 82533; 82570; 82947; 82962; 83036; 83605; 83735; 84132; 84300; 84443; 84484; 85025; 85027; 85610; 85730; 87040; 87045; 87046; 87070; 87077; 87086; 87088; 87186; 87324; 87427; 87449; 87502; 87811; 93005; 93306; 93970; 96361; 96374; 96375; 97116; 97163; 97167; 97535; 99291

== ENCOUNTER 2024-12-05 06:04 | Day surgery (SDC) | payer MEDICARE, SELFPAY ==
[2024-12-05] VITALS (7 sets, daily range): BP systolic 18–151; BP diastolic 65–80; BMI 34.0
[2024-12-05] MEDS: NORMOSOL-R/PLASMALYTE-A 1000 IV (07:10)
[2024-12-05 07:14] LABS: Glucose - Point of Care 94 mg/dl (70-99)
[2024-12-05 08:42] LABS: Glucose - Point of Care 85 mg/dl (70-99)
== END 2024-12-05 09:30 | disposition home or self-care (01) ==
LOC: SDS 06:04
PROVIDERS: ATTENDING PHYSICIAN Surgery
DX: C21.1 Malignant neoplasm of anal canal (principal); K62.89 Other specified diseases of anus and rectum; Z85.048 Personal history of other malignant neoplasm of rectum, rectosigmoid junction, and anus
CPT/HCPCS: 45331; 88305; 82962; 88342

== ENCOUNTER → 2024-12-16 08:51 | Outpatient (REF) | payer MEDICARE, SELFPAY | LOC: HWRAD 08:51 | PROVIDERS: ATTENDING PHYSICIAN Internal Medicine Hematology & Oncology; FAMILY PHYSICIAN Physician Assistant | DX: C21.1 Malignant neoplasm of anal canal (principal) | CPT/HCPCS: 71250; 74176 ==

== ENCOUNTER → 2025-01-08 13:43 | Outpatient (REF) | payer MEDICARE, SELFPAY | LOC: MRI 3T 13:43 | PROVIDERS: ATTENDING PHYSICIAN Surgery | DX: C21.0 Malignant neoplasm of anus, unspecified (principal) | CPT/HCPCS: 72197; 76014; 76015; A9575 ==

== ENCOUNTER 2025-02-18 05:43 | Inpatient (IN) | payer MEDICARE, SELFPAY ==
[2025-02-18] VITALS (58 sets, daily range): BP systolic 63–130; BP diastolic 36–89; BMI 33.5; BMI 35.2
--- NOTE | 2025-02-18 02:45 | ED.GENMED ---
History of Present Illness
<Anali Segovia PA-C - Last Filed: 02/18/25 06:03>
General
Chief Complaint: Change in Mental Status
Source: patient
Exam Limitations: none
Time Seen by Provider: 02/18/25 02:16
Nursing documentation reviewed up to this point in time: agreed with
History of Present Illness
History of Present Illness:
This is a 74-year-old female with past medical history of A-fib on Eliquis, CHF, hypertension, anal cancer, insulin-dependent diabetes, who presents emergency department today with concerns of change in her mental status. Patient comes from home
and she lives with her daughter. Patient herself is able to communicate with me and she is able to tell me that it is February 2025 and is able to tell me that she is at [facility] and she is able to date of . Patient states that she is
here because she feels weak and feels generally unwell. Patient states that this feels similar to when she had to get blood transfusion in the past. Daughter reports that she noticed that the past few days, patient has been eating less and
spending more time in bed. She also reports that she has had a cough as well as darker stools however patient is on iron supplementation. Patient noticed some blood with wiping but notes that occasional bleeding with her history of cancer is not
unusual for her. Patient denies chest pain or shortness of breath. She denies syncopal episodes. She denies sensation of fevers or chills at home. Daughter reports that she has not been using the bathroom as much and when she went to go check on
her earlier this morning, patient's bed was soaked in urine. Daughter reports that the urine smelled strong. Patient follows with Dr. Bradford for her cola rectal care and follows with [facility] for her oncology care.
Past History
<Anali Segovia PA-C - Last Filed: 02/18/25 06:03>
Past History
ED Past Medical History: Arrthythmia (AFib), CHF, HTN, Hypercholesterolemia, NIDDM, Hypothyroidism and Other (PNA )
ED Past Surgical History: Gynecological (Tubal ligation)
Social History
Tobacco: Non-smoker
Alcohol: None
Drug: None
Personal:
Living: with family
Employment: Retired
Family History
Family History: Diabetes
Review of Systems
<Anali Segovia PA-C - Last Filed: 02/18/25 06:03>
Review of Systems
All Other Systems: ROS reviewed and negative except as documented in HPI and ROS
Phy Exam
<Anali Segovia PA-C - Last Filed: 02/18/25 06:03>
Physical Exam
Physical Exam:
General: Patient appears pale
Skin: Warm and dry, no rashes or lesions
Head: Normocephalic, atraumatic
Eyes: Sclera non-icteric. EOMs intact.
Cardiac: Regular rate and rhythm, no murmurs
Peripheral Vascular: No lower extremity swelling or edema
Pulm: Normal respiratory effort, lung sounds clear bilaterally
Abdomen: No abdominal tenderness to palpation
Genitourinary: Scar tissue appreciated around the rectum, no hemorrhoids, loose brown heme negative stool noted within the rectal vault, no torsten bleeding
Neuro: CN II-XII intact, no focal neurologic deficits.
Psychiatric: Appropriate mood and affect.
Course
<Anali Segovia PA-C - Last Filed: 02/18/25 06:03>
Orders/Labs/Results
Orders:
Orders
02/18/25 02:35
Electrocardiogram (*1) Urgent
Reason for Study: Other
Other Reason for Exam: Possible Sepsis
Straight cath- Treatment ONCE
CR Chest Portable - 1 View Urgent
Comment:
Reason For Exam: infection
Reason Study Needs to be Portable: Patient Unstable
02/18/25 02:36
EKG- Treatment ONCE
02/18/25 02:38
Basic Metabolic Panel Urgent
Comment: NO K
COVID-19 Antigen Urgent
Source: Nasal Swab
Complete Blood Count/With Diff Urgent
Lactic Acid Q4H
Comment: ON ICE, CANCEL 2ND ORDER IF FIRST LACTIC ACID LEVEL <2
Blood Culture Q20M
GLENYS Source: Blood/Venous
Specimen Description:
Comment: Urgent from separate sites. If patient screens positive for possible sepsis
Influenza A+B Rapid Molecular Urgent
GLENYS Source: Nasal Swab
Specimen Description:
02/18/25 02:44
Pro-BNP [NT-proBNP] Urgent
02/18/25 03:07
Type+Screen Routine
BBK Wristband Number:
Urinalysis Reflex To Culture Urgent
Date Specimen was Collected: 02/18/25
Time Specimen was Collected: 02:36
Urine Microscopic Reflex Cult Urgent
Blood Culture Q20M
GLENYS Source: Blood/Venous
Specimen Description:
Comment: Urgent from separate sites. If patient screens positive for possible sepsis
Urine Culture Urgent
GLENYS Source: U
Specimen Description:
Date Specimen was Collected: 02/18/25
Time Specimen was Collected: 02:36
02/18/25 03:08
0.9% Sodium Chloride 1000 ml [Nss] 1,000 ml IV BOLUS
02/18/25 03:48
0.9% Sodium Chloride 1000 ml [Nss] 1,000 ml IV BOLUS
02/18/25 03:51
Piperacillin/Tazo 3.375 Gram [Zosyn] 3.375 gram in 50 ml IV NOW
02/18/25 05:23
Potassium Urgent
02/18/25 05:29
Admit/Transfer Patient As Directed
Co-Sign Provider:
Level of Care: Inpatient admission
Assign to:: IMU- Intermediate Care
Physician / Group: Kaleb
Diagnosis: UTI, Hypotension
Reason for Hospitalization: UTI, Hypotension
Expected length of stay greater than two midnights?: Yes
ELOS- Estimated Length of Stay in days: 3
I certify the patient meets the requirements for IP care: Yes
PRN Pain Medication Management As Directed
May give lesser potent ordered pain med per pt: Yes
preference::
Protocol:: Medication orders for pain may be administered in a
manner that supports deferring to patient preference
when the pt is:
- Requesting an ordered lesser potent pain medication.
Least to most potent pain medications are defined
as: acetaminophen < NSAID < tramadol < opioids
(morphine, oxycodone, hydromorphone).
- Requesting a lesser dose of the same medication IF
ORDERED.
- Requesting a less intrusive route of administration
if both routes are prescribed by the provider (PO <
IV).
02/18/25 05:31
Code Status As Directed
Resuscitation Status: Full Code
02/18/25 05:49
NORepinephrine 4 MG/250 ML [Levophed] 4 mg in 250 ml IV PER PROTOCOL
Initial dose in mcg/min, then titrate:: 4
Titrate to keep:: MAP > 65 mmHg
Titrate by mcg/min:: 1-2 mcg/min
Frequency of titrations (minutes):: 5
Maximum dose in ICU in mcg/min:: 30
Maximum dose in IMU in mcg/min:: 8
Maximum dose in IVU in mcg/min:: 4
Begin to taper infusion when:: Remained at goal for 4hrs
Taper by mcg/min:: 1-2 mcg/min
Frequency of taper (minutes) if patient maintains goal:: 30
Taper to off?: Yes
If infusion off & no longer maintaining goal:: Contact Provider
02/18/25 05:50
Dextrose 50%-Water [Dextrose 50% Syringe] 12.5 grams IV [id number] PRN
Glucagon [GlucaGen] 1 mg IM PRN PRN
02/18/25 05:50
Bedside Glucose Monitoring As Directed
Frequency: AC&HS
Additional Instructions:: Change to q6h if pt on TPN, tube feeding or not eating
02/18/25 Breakfast
1800 calorie (15 carb) Diabetic
0.9% Sodium Chloride 500 ml [Nss] 500 ml IV 250 mls/hr
Levothyroxine [Synthroid] 125 mcg PO DAILY @ 0600
02/18/25 07:30
Insulin Aspart Corrective Low [Novolog Flexpen-Low Resistance] See Protocol SC AC
Abnormal Lab Results
02/18/25 02/18/25
02:38 03:07
RBC 3.62 L 10^6/uL
(4.20-5.40)
Hgb 11.4 L g/dL
(12.0-16.0)
Hct 34.4 L %
(37.0-47.0)
MCH 31.5 H pg
(27.0-31.0)
Abs Immat Gran (auto) 0.1 H 10^3/uL
(0-0.05)
Absolute Neuts (auto) 8.0 H 10^3/uL
(1.4-6.5)
Absolute Lymphs (auto) 0.9 L 10^3/uL
(1.2-3.4)
Absolute Monos (auto) 0.7 H 10^3/uL
(0.1-0.6)
Neutrophils % 81.3 H %
(42.2-75.2)
Lymphocytes % 9.6 L %
(20.5-51.1)
Chloride 112 H mmol/L
(98-107)
Carbon Dioxide 17 L mmol/L
(22-30)
BUN 46 H mg/dl
(7-17)
Creatinine 2.9 H mg/dL
(0.6-1.0)
Ur Occult Blood Reflex 3+ A
(Negative)
Urine Bilirubin 1+ A
(Negative)
Leukocyte Esterase Rfl 3+ A
(Negative)
Urine WBC (Reflex) 30-40 A /HPF
(0-5)
Urine Bacteria (Reflex) Many A
(Negative)
Urine Albumin (Reflex) 1+ A
(Neg - Trace)
02/18/25 02:38
02/18/25 05:23
Vital Signs
Temp: 100.6 F
Initial and Last Documented VS:
Initial Vital Signs
Temp Pulse Resp BP Pulse Ox
98.5 F 75 18 104/45 95
02/18/25 02:09 02/18/25 02:09 02/18/25 02:09 02/18/25 02:09 02/18/25 02:09
Last Documented Vital Signs
Temp Pulse Resp BP Pulse Ox
99.6 F 61 20 81/53 97
02/18/25 04:07 02/18/25 05:45 02/18/25 05:45 02/18/25 05:45 02/18/25 05:30
<Joy Swann, DO - Last Filed: 02/18/25 05:22>
Orders/Labs/Results
Orders:
Orders
02/18/25 02:35
Electrocardiogram (*1) Urgent
Reason for Study: Other
Other Reason for Exam: Possible Sepsis
Straight cath- Treatment ONCE
CR Chest Portable - 1 View Urgent
Comment:
Reason For Exam: infection
Reason Study Needs to be Portable: Patient Unstable
02/18/25 02:36
EKG- Treatment ONCE
02/18/25 02:38
Basic Metabolic Panel Urgent
Comment: NO K
COVID-19 Antigen Urgent
Source: Nasal Swab
Complete Blood Count/With Diff Urgent
Lactic Acid Q4H
Comment: ON ICE, CANCEL 2ND ORDER IF FIRST LACTIC ACID LEVEL <2
Blood Culture Q20M
GLENYS Source: Blood/Venous
Specimen Description:
Comment: Urgent from separate sites. If patient screens positive for possible sepsis
Influenza A+B Rapid Molecular Urgent
GLENYS Source: Nasal Swab
Specimen Description:
02/18/25 02:44
Pro-BNP [NT-proBNP] Urgent
02/18/25 03:07
Type+Screen Routine
BBK Wristband Number:
Urinalysis Reflex To Culture Urgent
Date Specimen was Collected: 02/18/25
Time Specimen was Collected: 02:36
Urine Microscopic Reflex Cult Urgent
Blood Culture Q20M
GLENYS Source: Blood/Venous
Specimen Description:
Comment: Urgent from separate sites. If patient screens positive for possible sepsis
Urine Culture Urgent
GLENYS Source: U
Specimen Description:
Date Specimen was Collected: 02/18/25
Time Specimen was Collected: 02:36
02/18/25 03:08
0.9% Sodium Chloride 1000 ml [Nss] 1,000 ml IV BOLUS
02/18/25 03:48
0.9% Sodium Chloride 1000 ml [Nss] 1,000 ml IV BOLUS
02/18/25 03:51
Piperacillin/Tazo 3.375 Gram [Zosyn] 3.375 gram in 50 ml IV NOW
02/18/25 05:23
Potassium Urgent
02/18/25 05:29
Admit/Transfer Patient As Directed
Co-Sign Provider:
Level of Care: Inpatient admission
Assign to:: IMU- Intermediate Care
Physician / Group: Kaleb
Diagnosis: UTI, Hypotension
Reason for Hospitalization: UTI, Hypotension
Expected length of stay greater than two midnights?: Yes
ELOS- Estimated Length of Stay in days: 3
I certify the patient meets the requirements for IP care: Yes
PRN Pain Medication Management As Directed
May give lesser potent ordered pain med per pt: Yes
preference::
Protocol:: Medication orders for pain may be administered in a
manner that supports deferring to patient preference
when the pt is:
- Requesting an ordered lesser potent pain medication.
Least to most potent pain medications are defined
as: acetaminophen < NSAID < tramadol < opioids
(morphine, oxycodone, hydromorphone).
- Requesting a lesser dose of the same medication IF
ORDERED.
- Requesting a less intrusive route of administration
if both routes are prescribed by the provider (PO <
IV).
02/18/25 05:31
Code Status As Directed
Resuscitation Status: Full Code
02/18/25 05:49
NORepinephrine 4 MG/250 ML [Levophed] 4 mg in 250 ml IV PER PROTOCOL
Initial dose in mcg/min, then titrate:: 4
Titrate to keep:: MAP > 65 mmHg
Titrate by mcg/min:: 1-2 mcg/min
Frequency of titrations (minutes):: 5
Maximum dose in ICU in mcg/min:: 30
Maximum dose in IMU in mcg/min:: 8
Maximum dose in IVU in mcg/min:: 4
Begin to taper infusion when:: Remained at goal for 4hrs
Taper by mcg/min:: 1-2 mcg/min
Frequency of taper (minutes) if patient maintains goal:: 30
Taper to off?: Yes
If infusion off & no longer maintaining goal:: Contact Provider
02/18/25 05:50
Dextrose 50%-Water [Dextrose 50% Syringe] 12.5 grams IV [id number] PRN
Glucagon [GlucaGen] 1 mg IM PRN PRN
02/18/25 05:50
Bedside Glucose Monitoring As Directed
Frequency: AC&HS
Additional Instructions:: Change to q6h if pt on TPN, tube feeding or not eating
02/18/25 Breakfast
1800 calorie (15 carb) Diabetic
0.9% Sodium Chloride 500 ml [Nss] 500 ml IV 250 mls/hr
Levothyroxine [Synthroid] 125 mcg PO DAILY @ 0600
02/18/25 07:30
Insulin Aspart Corrective Low [Novolog Flexpen-Low Resistance] See Protocol SC AC
Abnormal Lab Results
02/18/25 02/18/25
02:38 03:07
RBC 3.62 L 10^6/uL
(4.20-5.40)
Hgb 11.4 L g/dL
(12.0-16.0)
Hct 34.4 L %
(37.0-47.0)
MCH 31.5 H pg
(27.0-31.0)
Abs Immat Gran (auto) 0.1 H 10^3/uL
(0-0.05)
Absolute Neuts (auto) 8.0 H 10^3/uL
(1.4-6.5)
Absolute Lymphs (auto) 0.9 L 10^3/uL
(1.2-3.4)
Absolute Monos (auto) 0.7 H 10^3/uL
(0.1-0.6)
Neutrophils % 81.3 H %
(42.2-75.2)
Lymphocytes % 9.6 L %
(20.5-51.1)
Chloride 112 H mmol/L
(98-107)
Carbon Dioxide 17 L mmol/L
(22-30)
BUN 46 H mg/dl
(7-17)
Creatinine 2.9 H mg/dL
(0.6-1.0)
Ur Occult Blood Reflex 3+ A
(Negative)
Urine Bilirubin 1+ A
(Negative)
Leukocyte Esterase Rfl 3+ A
(Negative)
Urine WBC (Reflex) 30-40 A /HPF
(0-5)
Urine Bacteria (Reflex) Many A
(Negative)
Urine Albumin (Reflex) 1+ A
(Neg - Trace)
02/18/25 02:38
02/18/25 05:23
Vital Signs
Initial and Last Documented VS:
Initial Vital Signs
Temp Pulse Resp BP Pulse Ox
98.5 F 75 18 104/45 95
02/18/25 02:09 02/18/25 02:09 02/18/25 02:09 02/18/25 02:09 02/18/25 02:09
Last Documented Vital Signs
Temp Pulse Resp BP Pulse Ox
99.6 F 61 20 81/53 97
02/18/25 04:07 02/18/25 05:45 02/18/25 05:45 02/18/25 05:45 02/18/25 05:30
Mary Annlt;Anali Segovia PA-C - Last Filed: 02/18/25 06:03>
MDM/Problems Addressed
Differential Diagnosis Includes:
Differentials include iron deficiency anemia, acute blood loss anemia, urosepsis, acute upper respiratory tract infection,
MDM/Problems Addressed:
This is a 74-year-old female with past medical history of A-fib on Eliquis, CHF, hypertension, anal cancer, insulin-dependent diabetes, who presents emergency department today with concerns of change in her mental status. Upon arrival to the ER,
patient's blood pressure was in the 60s to 70s systolically. A line was placed and she is currently receiving a liter of IV fluids. Patient's port was accessed. Will obtain CBC, CMP, type and screen, proBNP, lactic acid. Patient's temperature
rectally is 100.6. Will obtain urine and chest x-ray.
Urinalysis concerning for infection. Chest x-ray shows questionable left lower lobe infiltrate. Her lactic acid is normal. She has no white blood cell count.
Will start Zosyn and refer for admission.
Chronic conditions affecting care:
Morton fibrillation, CHF, hypertension, hyperlipidemia, anal cancer
<Anali Segovia PA-C - Last Filed: 02/18/25 06:03>
*Pulse Oximetry
SaO2: 95
Oxygen Mode of Delivery: Room air
Patient hypoxic: no
*Critical Care Note
Total Time (30-74mins, 75-104mins- exclusive of procedures): Not Applicable
Data Reviewed
Review of Other/Old Records Reveals: Records (Reviewed discharge summary from 02/19/2024 patient seen for septic shock secondary to ESBL E. coli UTI and neutropenic fever)
Source: patient and records
<Anali Segovia PA-C - Last Filed: 02/18/25 06:03>
Patient Management
Escalation/DeEscalation of care consider admission/obs:
Admission indicated, case discussed with ED attending.
ED Attending Note
<BERTRAND Regan Last Filed: 02/18/25 06:03>
-
Portions of this chart may have been created with voice recognition software.� Occasional wrong word or��sound alike� substitutions may have occurred due to the inherent limitations of voice recognition software.
<Joy Swann DO - Last Filed: 02/18/25 05:22>
ED Attending Note
Patient seen and examined by attending physician: Yes
I performed a history and physical exam of patient and discussed management with resident, I reviewed resident's note and agree with documented findings and plan of care.: Yes
ED Attending Note:
74-year-old woman with history of A-fib on Eliquis, CVA, CHF, hypertension, hyperlipidemia, insulin requiring diabetes, pacemaker, anal carcinoma who is brought to the ED by her daughter with concern for generalized weakness, fatigue, lethargy and
confusion that began yesterday. Patient did not take her medications yesterday which is unlike her. She has had a cough over the past few days but no shortness of breath.
Daughter concern for UTI as urine is foul-smelling. Prior history of UTIs.
She also has history of anemia requiring blood transfusion in November 2023.
She does note intermittent scant rectal bleeding only noted with wiping. No current treatment for anal carcinoma.
Patient is awake, moderately fatigued but oriented x 3. Moderately pale in appearance and moderately hypotensive without tachycardia. Low-grade fever noted. Intermittent moist nonproductive cough is noted otherwise no shortness of breath. No
chest pain. No abdominal pain or back pain or flank pain.
With low-grade fever, hypotension, significant concern for sepsis. Concern for pneumonia, UTI. Concern for symptomatic anemia.
Port-A-Cath accessed, will initiate IV fluid bolus. Will check chest x-ray, labs, lactic acid, blood culture, urinalysis with reflex to culture.
History of CHF. This is also a consideration but less likely especially in light of cough and low-grade fever. There is however concern for exacerbation of CHF with IV fluid resuscitation.
Will require diligent observation.
If blood pressure does not respond to IV fluids will plan for IV pressors
If found to be significantly anemic we will plan for blood transfusion.
Discharge Plan
Departure
Patient Disposition: Admit
Date of Disposition: 02/18/25
Time of Disposition: 04:07
Admit to: Med/Surg
Presentation/result/management discussed w/ accepting MD/DO: Hospitalist
Patient with high blood pressure during this ER visit?: No
Condition: Fair
Discharge Problem:
Altered mental status, Generalized weakness
Interventions
Interventions:
*Risk Screen - Suicide Last Done: 02/18/25 02:13
*General Assessment Last Done: 02/18/25 02:09
*Neglect/Abuse Screening Last Done: 02/18/25 02:09
*ED- Fall Risk Assessment Last Done: 02/18/25 04:10
*ED COVID-19 Vaccine History Last Done: 02/18/25 04:10
ED- Pulmonary Assessment Last Done: 02/18/25 04:05
ED- Neurological Assessment Last Done: 02/18/25 04:05
ED- Cardiac Assessment Last Done: 02/18/25 04:05
[2025-02-18 02:55] LABS: Hematocrit 34.4 % (37.0-47.0); Hemoglobin 11.4 g/dL (12.0-16.0); Mean Corp Hgb Conc. 33.1 g/dL (33.0-37.0); Mean Corpuscular Volume 95.0 fL (81.0-99.0); Platelet Count 158 10^3/uL (130-400); Red Cell Dist. Width 14.4 % (11.5-14.5)
[2025-02-18 03:05] LABS: COVID-19 Antigen Negative (Negative)
[2025-02-18] MEDS: NSS 1000 IV ×4 (03:08→21:11)
[2025-02-18 03:17] LABS: Urine Character Clear (Clear)
[2025-02-18 03:20] LABS: Blood Urea Nitrogen 46 mg/dl (7-17); Calcium 8.5 mg/dl (8.4-10.2); Carbon Dioxide 17 mmol/L (22-30); Chloride 112 mmol/L (98-107); Estimated Creatinine Clearance 17 ml/min; Glucose 90 mg/dl (70-99); Sodium 139 mmol/L (135-145); eGFR 16.37
[2025-02-18 03:31] LABS: Nucleated Red Blood Cells % 0 %
[2025-02-18 03:34] LABS: Urine Red Blood Cell 0-2 /HPF (0-2); Urine Squamous Cell 0-2 /LPF (Few); Urine White Cell 30-40 /HPF (0-5)
[2025-02-18] MEDS: ZOSYN 50 IV ×4 (03:58→21:12)
[2025-02-18] MEDS: NSS 500 IV (05:22)
--- NOTE | 2025-02-18 05:35 | HPS.HSE ---
Family Physician
-
Family Physician: Kayla Adame PA-C
Chief Complaint
-
Weakness, lightheaded
History of Present Illness
Patient is a 74y F with PMH significant for squamous cell carcinoma of the anus, A-Fib, hypertension and DM-II who presents to ED complaining of generalized weakness, fatigue, cough and urinary complaints. Patient states that she has had cold /
cough symptoms for about one week. Multiple family members have been ill with similar symptoms. She reports mild, non-productive cough. No chest pain / back pain. No shortness of breath. She has felt progressively more weak / fatigued. She has
no GI complaints. No N/V.
She does report dysuria and urinary frequency / incontinence. She states that she has had frequent UTIs following her XRT for anal cancer last year.
Patient has chronic soft stool, chronic perianal irritation and occasional blood in toilet / on toilet paper.
She is currently scheduled for surgery in early March with Dr. Bradford.
Medical History
Past Medical History
Past Medical History: Reports Other
Additional Past Medical History:
Squamous Cell Cancer of the Anus
Persistent Atrial Fibrillation
Chronic HFpEF
ASCVD / CVA
Hypertension
DM-II
Hypothyroidism
Obesity
Past Surgical History: Reports Other
Additional Past Surgical History:
Tubal Ligation
PPM Placement
Port Placement
Anal Biopsy
Social History
Tobacco: Non-smoker
Alcohol: Occasional (Rare)
Drug: None
Family History
Family History: Not pertinent
Allergies / Home Medications
Allergies reflects when Allergies were last updated in [employer].
Home Medications with original date entered in [employer]
Allergy/Medication List:
Allergies
Allergy/AdvReac Type Severity Reaction Status Date / Time
sulfamethoxazole (From Allergy hypotension Verified 02/18/25 02:09
Bactrim)
trimethoprim (From Bactrim) Allergy hypotension Verified 02/18/25 02:09
Home Medications
cholecalciferol (vitamin D3) 25 mcg (1,000 unit) tablet 1,000 units PO DAILY Supplement 07/31/21
tamsulosin 0.4 mg capsule 0.4 mg PO DAILY Urinary issue 07/31/21
atorvastatin 40 mg tablet 40 mg PO HS High cholesterol 09/28/22
levothyroxine 125 mcg tablet 125 mcg PO DAILY Thyroid 09/28/22
potassium chloride 20 mEq tablet,extended release 20 meq PO HS Electrolyte Repletion 12/02/22
amiodarone 200 mg tablet 200 mg PO DAILY #30 tabs 12/04/23
cyanocobalamin (vitamin B-12) 1,000 mcg tablet 1,000 mcg PO DAILY #30 tabs 12/04/23
metoprolol tartrate 25 mg tablet 25 mg PO BID #60 tabs 02/17/24
apixaban 2.5 mg tablet (Eliquis) 2.5 mg PO BID 12/04/24
ferrous sulfate 325 mg (65 mg iron) tablet (iron) 325 mg PO DAILY 12/04/24
folic acid 1 mg tablet 1 mg PO DAILY 12/04/24
glipizide 5 mg tablet 2.5 mg PO DAILY PRN high glucose level 12/04/24
insulin degludec 100 unit/mL (3 mL) subcutaneous pen (Tresiba FlexTouch U-100 insulin) 8 unit SQ HS Diabetes 12/04/24
furosemide 40 mg tablet 40 mg PO MOWEFR 02/18/25
Review of Systems
-
History Source: Patient
A 12 point ROS was completed and negative except as noted: Yes
Constitutional: Reports Fatigue; Denies Fever or Chills
EENT: Reports Runny Nose; Denies Sore Throat
Respiratory: Reports Cough; Denies Trouble Breathing
Cardiac: Denies Chest Pain or Palpitations
Abdomen/GI: Reports Diarrhea and Bloody Stools; Denies Abdominal Pain, Nausea, Vomiting or Anorexia
: Reports Dysuria, Frequency, Incontinence and Dark Urine; Denies Flank Pain
Musculoskeletal: Denies Joint Pain or Edema
Neurological: Reports Weakness; Denies Dizzy or Headache
Psych: Denies Depression or Anxiety
Physical Exam
Vital Signs
Vital Signs
Temp Pulse Resp BP Pulse Ox
99.6 F 60 18 95/55 100
02/18/25 04:07 02/18/25 05:00 02/18/25 05:00 02/18/25 05:00 02/18/25 05:00
Physical Exam
General: Other (74y F in no acute distress.)
HEENT: Moist mucous membranes and PERRLA
Respiratory: Other (Few bibasilar rales. Otherwise clear. No rhonchi or wheezes.)
Cardiac: S1/S2 and Irregular Rhythm; No Murmur
GI: Soft, Non Distended, Normal Bowel Sounds and Other (Mild mid-abdominal tenderness. No rebound / guarding. Pos BS.)
Musculoskeletal: No Clubbing, No Cyanosis and No Edema
Neuro: AO x 3
Laboratory Results
-
02/18/25 02:38
Laboratory Results
Lactic Acid Cancelled 02/18/25 06:45
Total Bilirubin Cancelled 02/18/25 02:38
AST Cancelled 02/18/25 02:38
ALT Cancelled 02/18/25 02:38
Alkaline Phosphatase Cancelled 02/18/25 02:38
Impression/Plan
-
A/P: Patient is a 74y F with PMH significant for anal cancer, hypertension, DM-II who presents to ED complaining of weakness, fatigue, cough and urinary complaints.
UTI
Clinical Sepsis with Hypotension
- Admit for further evaluation and treatment.
- UA suggestive of infection with dark urine, incontinence and mild dysuria.
- Patient reports recurrent UTIs since XRT which may reflect inflammatory / radiation cystitis versus fistulous disease versus other.
- IV abx pending culture data.
- Follow for clinical improvement.
- Infection with hypotension. Febrile to 100.6 but not tachycardic, no leukocytosis.
- IVF boluses being given now in the ED.
- Continue IVFs and follow for improvement.
- +/- pressors if needed to maintain perfusion.
- Holding parameters for metoprolol.
URI / Cough
- Cough and recent sick contacts - improving per patient.
- CXR without evident infiltrate. Not hypoxemic.
- On Zosyn for now.
- Follow fever curve and monitor for any new symptoms, O2 requirements, etc.
OSMANY on CKD III
Non-Gapped Metabolic Acidosis
- SCr = 2.9 compared to known baseline of 1.6.
- Holding diuretics. IVFs support +/- pressors as noted above.
- Follow for improvement in renal function.
Persistent Atrial Fibrillation
- Stable. Rate-controlled on current regimen.
- Continue amiodarone. Continue metoprolol as BP allows.
- Continue Eliquis for stroke risk reduction.
Chronic HFpEF
- Stable. Does not appear volume overloaded on exam.
- Hold Lasix as noted above.
- Follow I/Os, daily weights, etc.
- Echo done 1 year ago with LVEF = 55-60% with moderate MS, mild - moderate MR and mod- severe TR.
DM-II
- Stable. Hold oral agents.
- Continue basal : bolus insulin regimen.
- Follow glucose and cover with SSI as needed.
- Update A1C.
Anal Cancer / Squamous Cell Cancer
- s/p course of chemo / XRT last summer.
- Recently with evidence of recurrence - biopsy proven in December.
- Scheduled for surgical intervention / resection in March.
DVT Prophylaxis: On Eliquis
Code Status: Full
[2025-02-18 05:42] LABS: Potassium 4.4 mmol/L (3.5-5.1)
[2025-02-18] MEDS: LEVOPHED 250 IV (05:57)
[2025-02-18] MEDS: SYNTHROID 125 MCG PO (06:18)
[2025-02-18 09:15] LABS: Glucose - Point of Care 83 mg/dl (70-99)
[2025-02-18] MEDS: ELIQUIS 5 MG PO ×2 (09:22→21:12)
[2025-02-18] MEDS: FLOMAX 0.4 MG PO (09:22)
[2025-02-18] MEDS: PACERONE 200 MG PO (09:23)
[2025-02-18] MEDS: NOVOLOG FLEXPEN-LOW RESISTANCE SC ×2 (09:36→12:47)
--- NOTE | 2025-02-18 10:02 | CM ---
Reviewed the chart notes and spoke with the patient at the beside. The patient resides with her son and daughter in a two story home with two steps to enter. The patient has a rolling walker, wheelchair, and cane. The patient has had [facility] in the
past, but no SNF. The patient confirmed her [facility] of choice [facility]. CM continues to be available to patient/family and is monitoring medical plan for needs at discharge.
Plan: Discharge to home when medically stable. No needs anticipated at this time.
--- NOTE | 2025-02-18 12:01 | W.PN.UPDATE ---
Update Note
Progress Note Update
Seen and examined independent of overnight physician
States of having loose bowel movements
States feeling weak
States of dry cough
General: Other (74y F in no acute distress.)
HEENT: Moist mucous membranes and PERRLA
Respiratory: Other (Few bibasilar rales. Otherwise clear. No rhonchi or wheezes.)
Cardiac: S1/S2 and Irregular Rhythm; No Murmur
GI: Soft, Non Distended, Normal Bowel Sounds and Other (Mild mid-abdominal tenderness. No rebound / guarding. Pos BS.)
Musculoskeletal: No Clubbing, No Cyanosis and No Edema
Neuro: AO x 3
A/P: Patient is a 74y F with PMH significant for anal cancer, hypertension, DM-II who presents to ED complaining of weakness, fatigue, cough and urinary complaints.
septic shock likely 2/2 uti-poa
- UA suggestive of infection with dark urine, incontinence and mild dysuria.
- Patient reports recurrent UTIs since XRT which may reflect inflammatory / radiation cystitis versus fistulous disease versus other.
- IV abx pending culture data.
- Follow for clinical improvement.
- Infection with hypotension. Febrile to 100.6 but not tachycardic, no leukocytosis.
- IVF boluses being given now in the ED.
- Continue IVFs and follow for improvement.
- Wean off Levophed as blood pressure tolerated
URI / Cough
- Cough and recent sick contacts - improving per patient.
- CXR without evident infiltrate. Not hypoxemic.
- On Zosyn for now.
- Follow fever curve and monitor for any new symptoms, O2 requirements, etc.
OSMANY on CKD III
Non-Gapped Metabolic Acidosis
- SCr = 2.9 compared to known baseline of 1.6.
- Holding diuretics. IVFs support +/- pressors as noted above.
- Follow for improvement in renal function.
Persistent Atrial Fibrillation
- Stable. Rate-controlled on current regimen.
- Continue amiodarone. hold BB
- Continue Eliquis for stroke risk reduction.
Chronic HFpEF
- Stable. Does not appear volume overloaded on exam.
- Hold Lasix as noted above.
- Follow I/Os, daily weights, etc.
- Echo done 1 year ago with LVEF = 55-60% with moderate MS, mild - moderate MR and mod- severe TR.
DM-II
- Stable. Hold oral agents.
- Continue basal : bolus insulin regimen.
- Follow glucose and cover with SSI as needed.
- Update A1C.
Anal Cancer / Squamous Cell Cancer
- s/p course of chemo / XRT last summer.
- Recently with evidence of recurrence - biopsy proven in December.
- Scheduled for surgical intervention / resection in March.
DVT Prophylaxis: On Eliquis
Code Status: Full
[2025-02-18 12:57] LABS: Glucose - Point of Care 115 mg/dl (70-99)
[2025-02-18 18:26] LABS: Glucose - Point of Care 154 mg/dl (70-99)
[2025-02-18] MEDS: NOVOLOG FLEXPEN-LOW RESISTANCE 1 UNITS SC (18:40)
[2025-02-18] MEDS: LIPITOR 40 MG PO (21:12)
[2025-02-18 21:52] LABS: Glucose - Point of Care 220 mg/dl (70-99)
[2025-02-18] MEDS: LANTUS 0.08 UNITS SC (21:57)
[2025-02-19] VITALS (17 sets, daily range): BP systolic 98–158; BP diastolic 53–129; PULSE 70; O2SAT 96; BMI 36.3
--- NOTE | 2025-02-19 03:15 | PTCARENOTE ---
Began weaning levo gtt at 21:00 by 1mcg/min. Levo gtt off at 01:20. Pt MAP > 65 since start of shift. Continues to have loose stools. Remains on zosyn and NS @100ml/hr. Crackles heard in L base. Prior CXR with hazy opacity at the left lung base.
VSS. Care ongoing. Call chaves and belongings within reach.
[2025-02-19] MEDS: SYNTHROID 125 MCG PO (04:33)
[2025-02-19] MEDS: ZOSYN 50 IV ×4 (04:33→21:49)
[2025-02-19 05:16] LABS: Hematocrit 29.3 % (37.0-47.0); Hemoglobin 9.4 g/dL (12.0-16.0); Mean Corp Hgb Conc. 32.1 g/dL (33.0-37.0); Mean Corpuscular Volume 95.8 fL (81.0-99.0); Platelet Count 134 10^3/uL (130-400); Red Cell Dist. Width 14.3 % (11.5-14.5)
[2025-02-19 05:32] LABS: ALT (SGPT) 40 U/L (0-35); AST (SGOT) 32 U/L (14-36); Albumin 2.8 g/dl (3.5-5.0); Alkaline Phosphatase 63 U/L (38-126); Blood Urea Nitrogen 41 mg/dl (7-17); Calcium 7.9 mg/dl (8.4-10.2); Carbon Dioxide 16 mmol/L (22-30); Chloride 116 mmol/L (98-107); Estimated Creatinine Clearance 24 ml/min; Glucose 136 mg/dl (70-99); Potassium 4.2 mmol/L (3.5-5.1); Sodium 136 mmol/L (135-145); Total Protein 5.8 g/dl (6.3-8.2); eGFR 24.12
[2025-02-19 06:02] LABS: Nucleated Red Blood Cells % 0 %
[2025-02-19] MEDS: NSS 1000 IV (07:40)
[2025-02-19] MEDS: FLOMAX 0.4 MG PO (08:00)
[2025-02-19] MEDS: PACERONE 200 MG PO (08:00)
[2025-02-19] MEDS: DESENEX/MITRAZOL/ZEASORB 1 APPLIC TOPICAL ×2 (08:00→19:52)
[2025-02-19] MEDS: ELIQUIS 5 MG PO ×2 (08:01→19:51)
--- NOTE | 2025-02-19 08:05 | PTCARENOTE ---
Pt aao3 . Sinus Rythm , lungs have some crackle , nss running as ordered. Pt incont B/B. Pt states she has a poor appetite states everything runs thrpugh her.
[2025-02-19 08:30] LABS: Glucose - Point of Care 119 mg/dl (70-99)
[2025-02-19] MEDS: NOVOLOG FLEXPEN-LOW RESISTANCE SC ×2 (08:35→18:10)
[2025-02-19 09:12] LABS: Glycohemoglobin (HgbA1c) 6.5 % (4.0-5.6)
--- NOTE | 2025-02-19 11:59 | W.PN.HOSP.TC ---
Today's Communication/Plan
-
Follow-up on the urine culture.
Continue with antibiotic
Start probiotic
Stool studies
P.o. bicarbonate
PT evaluation
DC fluids
Assessment / Plan
Assessment / Plan
A/P: Patient is a 74y F with PMH significant for anal cancer, hypertension, DM-II who presents to ED complaining of weakness, fatigue, cough and urinary complaints.
septic shock likely 2/2 uti-poa
- Urine culture preliminary gram-negative bacilli.
- Patient reports recurrent UTIs since XRT which may reflect inflammatory / radiation cystitis versus fistulous disease versus other.
- IV abx pending culture data.
- Follow for clinical improvement.
- Blood pressure starting to stabilize. Off Levophed. DC fluids.
Diarrhea likely secondary to gastroenteritis suspected viral
-Check stool studies
URI / Cough
- Cough and recent sick contacts - improving per patient.
- CXR without evident infiltrate. Not hypoxemic.
- On Zosyn for now.
- Follow fever curve and monitor for any new symptoms, O2 requirements, etc.
OSMANY on CKD III
Non-Gapped Metabolic Acidosis
- SCr = 2.9 compared to known baseline of 1.6.
- Holding diuretics. Creatinine slowly improving.
- Follow for improvement in renal function.. Start p.o. bicarbonate.
Persistent Atrial Fibrillation
- Stable. Rate-controlled on current regimen.
- Continue amiodarone. Metoprolol with hold parameters.
- Continue Eliquis for stroke risk reduction.
Chronic HFpEF
- Stable. Does not appear volume overloaded on exam.
- Hold Lasix as noted above.
- Follow I/Os, daily weights, etc.
- Echo done 1 year ago with LVEF = 55-60% with moderate MS, mild - moderate MR and mod- severe TR.
DM-II
- Stable. Hold oral agents.
- Continue basal : bolus insulin regimen.
- Follow glucose and cover with SSI as needed.
- Update A1C at 6.5
Anal Cancer / Squamous Cell Cancer
- s/p course of chemo / XRT last summer.
- Recently with evidence of recurrence - biopsy proven in December.
- Scheduled for surgical intervention / resection in March.
DVT Prophylaxis: On Eliquis
Code Status: Full
Anticipated Discharge: > 48 hours
Subjective/Interval History
-
Date of Service: February 19, 2025
States of multiple episode of loose bowel movements yesterday
No bowel movements overnight
States of feeling weak
States of decreased appetite
Off Levophed
Objective Data
-
Labs:
Laboratory Results
02/19/25
04:47
WBC 6.5
Hgb 9.4 L
Hct 29.3 L
Plt Count 134
Sodium 136
Potassium 4.2
Chloride 116 H
Carbon Dioxide 16 L
BUN 41 H
Creatinine 2.1 H
Glucose 136 H
Calcium 7.9 L
Total Bilirubin 1.3
AST 32
ALT 40 H
Alkaline Phosphatase 63
Vital Signs:
Vital Signs
Temp Pulse Resp BP Pulse Ox
98.8 F 71 22 107/60 96
02/19/25 11:15 02/19/25 10:00 02/19/25 10:00 02/19/25 10:00 02/19/25 10:00
I&O
02/18/25 02/19/25 02/20/25
06:59 06:59 06:59
Intake Total 1240 / 1240 350 / 350
Balance 1240 / 1240 350 / 350
Physical Exam
-
General: Well Developed, No Apparent Distress and Morbidly Obese
HEENT: Normocephalic, Atraumatic and Moist Mucous Membranes
Respiratory: Clear to Auscultation
Cardiac: Regular Rhythm and S1/S2; Negative Murmur, Rub or Gallop
GI: Soft, Nontender, Nondistended and Normal Bowel Sounds; Negative Organomegaly
Rectal: Deferred by Provider
Musculoskeletal: No Clubbing, No Cyanosis and No Edema
Skin: Negative Rash
Neuro: Awake, No Motor Deficits and Nonfocal/Grossly Intact
Psych: Calm
Data Reviewed
-
Total Time Spent with Patient (in minutes): 55
[2025-02-19 12:35] LABS: Glucose - Point of Care 153 mg/dl (70-99)
[2025-02-19] MEDS: NOVOLOG FLEXPEN-LOW RESISTANCE 1 UNITS SC (12:36)
--- NOTE | 2025-02-19 13:05 | WOUNDNOTE ---
SACRUM/COCCYX, MR#[id number]
--- NOTE | 2025-02-19 13:06 | WOUNDNOTE ---
LEFT BUTTOCK, MR#[id number]
--- NOTE | 2025-02-19 13:13 | WOUNDNOTE ---
WOC RN NOTE: Patient visited for wounds on HAP report. Upon assessment patient had DTI (purplish, blue ecchymotic, non-blanchable) appearing wound of her left lower buttocks. The wound was surrounded by newly healed skin. Patient said that the left
buttock was radiated in the past and the skin continues to open and close. Per patient report and history of radiation, this designer writer suspects that wound was present on admission. Patient also has small opening (.4x.3) of sacral coccyx that is likely
a result of MASD. Patient sitting with air cushion to chair and stood with minimal assistance. Patient on Centrella Max Air. Instructed patient to off-load buttocks and change position frequently. Please notify WOC RN if left buttock wounds opens
or worsens.
--- NOTE | 2025-02-19 13:19 | PN.CDI ---
CDI
- -
CDI:
Physician Documentation Request
Admit Date: 02/18/25 05:43
Dear Doctor Jenn,
Please review the following and provide your response in the progress notes.
Clinical Indicators:
Pt admitted with septic shock 2/2 UTI
Documented per nursing wound care note 02/18, ' Present on admission sacrum pressure injury stage 2 ..treatment provided silicone border ...'
Physician documentation of the type and location of wounds is required for compliant documentation. Based on the above clinical findings and your assessment, please provide the following in your progress note:
1. Location of the ulcer/wound, including laterality.
2. Type (etiology) of ulcer/wound:
- Pressure (decubitus) ulcer
- Non-pressure ulcer
- Other ( please specify)
Use of terms such as suspected, likely, concern for, or probable (associated with a specific diagnosis that is being evaluated, monitored, or treated as if it exists) are acceptable and can be coded in the inpatient setting, when documented at the
time of discharge.
Thank you,
Janeen Sultana RN
CDI Specialist
[place] [facility]
Please use your independent medical judgment in providing your response.
*Source: National Pressure Ulcer Advisory Panel (NPUAP)
--- NOTE | 2025-02-19 13:47 | CM ---
Continues feeling weak with dry cough, loose stools. IV/Zosyn. Discharge POC: Therapy recommendation today is SNF vs HH. Attempted to meet with patient to discuss. She was sleeping soundly. Will await further therapy evals to solidify plan.
[2025-02-19] MEDS: SODIUM BICARBONATE 650 MG PO ×2 (16:07→21:49)
[2025-02-19 18:09] LABS: Glucose - Point of Care 149 mg/dl (70-99)
[2025-02-19] MEDS: TOPROL XL 25 MG PO (19:51)
--- NOTE | 2025-02-19 20:45 | PTCARENOTE ---
pt received from dayshift RN. pt is awake and watching tv, aaox3. Pt ate 80% of dinner. satting 95% on RA. HR 62. BP 112/61(76). took hs pills whole with water. assessment as documented call light in reach.
[2025-02-19 21:32] LABS: Glucose - Point of Care 178 mg/dl (70-99)
[2025-02-19] MEDS: LIPITOR 40 MG PO (21:49)
[2025-02-19] MEDS: LANTUS 0.08 UNITS SC (21:50)
[2025-02-20] VITALS (18 sets, daily range): BP systolic 73–130; BP diastolic 48–77; BMI 36.9
[2025-02-20] MEDS: ZOSYN 50 IV (05:01)
[2025-02-20] MEDS: SYNTHROID 150 MCG PO (05:01)
[2025-02-20 05:23] LABS: Hematocrit 28.9 % (37.0-47.0); Hemoglobin 9.2 g/dL (12.0-16.0); Mean Corp Hgb Conc. 31.8 g/dL (33.0-37.0); Mean Corpuscular Volume 95.4 fL (81.0-99.0); Nucleated Red Blood Cells % 0 %; Platelet Count 124 10^3/uL (130-400); Red Cell Dist. Width 14.2 % (11.5-14.5)
[2025-02-20 05:42] LABS: ALT (SGPT) 32 U/L (0-35); AST (SGOT) 21 U/L (14-36); Albumin 2.8 g/dl (3.5-5.0); Alkaline Phosphatase 65 U/L (38-126); Blood Urea Nitrogen 33 mg/dl (7-17); Calcium 8.2 mg/dl (8.4-10.2); Carbon Dioxide 19 mmol/L (22-30); Chloride 115 mmol/L (98-107); Estimated Creatinine Clearance 27 ml/min; Glucose 178 mg/dl (70-99); Potassium 4.2 mmol/L (3.5-5.1); Sodium 136 mmol/L (135-145); Total Protein 5.9 g/dl (6.3-8.2); eGFR 27.20
[2025-02-20 08:05] LABS: Glucose - Point of Care 150 mg/dl (70-99)
[2025-02-20] MEDS: NOVOLOG FLEXPEN-LOW RESISTANCE 1 UNITS SC (09:37)
[2025-02-20] MEDS: FLOMAX 0.4 MG PO (09:39)
[2025-02-20] MEDS: VISBIOME 1 CAP PO (09:39)
[2025-02-20] MEDS: DESENEX/MITRAZOL/ZEASORB 1 APPLIC TOPICAL ×2 (09:40→21:41)
[2025-02-20] MEDS: ELIQUIS 5 MG PO (09:40)
[2025-02-20] MEDS: TOPROL XL 25 MG PO ×2 (09:41→21:39)
[2025-02-20] MEDS: PACERONE 200 MG PO (09:41)
[2025-02-20] MEDS: SODIUM BICARBONATE 650 MG PO ×3 (09:41→21:40)
[2025-02-20] MEDS: FLUSH (NSS) 2 FLUSH IV (09:43)
[2025-02-20] MEDS: ANCEF 5 IV ×2 (09:43→21:40)
--- NOTE | 2025-02-20 10:42 | W.PN.HOSP.TC ---
Addendum entered and electronically signed by Francis Barajas MD 02/20/25 14:41:
Sacrum stage II pressure injury likely POA
Wound care
Original Note:
Today's Communication/Plan
-
Transfer out of IMU
Continue p.o. bicarbonate
De-escalate antibiotic
Continue with out of bed
Assessment / Plan
Assessment / Plan
A/P: Patient is a 74y F with PMH significant for anal cancer, hypertension, DM-II who presents to ED complaining of weakness, fatigue, cough and urinary complaints.
septic shock likely 2/2 Klebsiella uti-poa
- Urine culture preliminary gram-negative bacilli.
- Patient reports recurrent UTIs since XRT which may reflect inflammatory / radiation cystitis versus fistulous disease versus other.
- De-escalate antibiotic to cefazolin monitor.
- Follow for clinical improvement.
- Blood pressure starting to stabilize. Off Levophed. DC fluids.
Diarrhea likely secondary to gastroenteritis suspected viral
-Check stool studies
URI / Cough
- Cough and recent sick contacts - improving per patient.
- CXR without evident infiltrate. Not hypoxemic.
- Follow fever curve and monitor for any new symptoms, O2 requirements, etc.
OSMANY on CKD III
Non-Gapped Metabolic Acidosis
- SCr = 2.9 on admission compared to known baseline of 1.6.
- Holding diuretics. If creatinine continues to improve and plateaus restart diuretics in next 24 to 48 hours.
- Follow for improvement in renal function.. Continue with p.o. bicarbonate. Acidosis improving.
Persistent Atrial Fibrillation
- Stable. Rate-controlled on current regimen.
- Continue amiodarone. Metoprolol with hold parameters.
- Continue Eliquis for stroke risk reduction.
Chronic HFpEF
- Stable. Does not appear volume overloaded on exam.
- Hold Lasix as noted above.
- Follow I/Os, daily weights, etc.
- Echo done 1 year ago with LVEF = 55-60% with moderate MS, mild - moderate MR and mod- severe TR.
DM-II
- Stable. Hold oral agents.
- Continue basal : bolus insulin regimen.
- Follow glucose and cover with SSI as needed.
- Update A1C at 6.5
Anal Cancer / Squamous Cell Cancer
- s/p course of chemo / XRT last summer.
- Recently with evidence of recurrence - biopsy proven in December.
- Scheduled for surgical intervention / resection in March.
DVT Prophylaxis: On Eliquis
Code Status: Full
PT SNF versus home PT. Will await for further clarification.
Anticipated Discharge: 24 - 48 hours
Subjective/Interval History
-
Date of Service: February 20, 2025
Patient blood pressure stabilized
She is feeling better
Tolerating diet to some extent
Objective Data
-
Labs:
Laboratory Results
02/20/25
05:10
WBC 7.4
Hgb 9.2 L
Hct 28.9 L
Plt Count 124 L
Sodium 136
Potassium 4.2
Chloride 115 H
Carbon Dioxide 19 L
BUN 33 H
Creatinine 1.9 H
Glucose 178 H
Calcium 8.2 L
Total Bilirubin 0.9
AST 21
ALT 32
Alkaline Phosphatase 65
Vital Signs:
Vital Signs
Temp Pulse Resp BP Pulse Ox
98.8 F 69 21 126/65 94
02/20/25 07:45 02/20/25 08:00 02/20/25 08:00 02/20/25 08:00 02/20/25 08:00
I&O
02/19/25 02/20/25 02/21/25
06:59 06:59 06:59
Intake Total 1240 / 1240 460 / 460
Output Total 600 / 600
Balance 1240 / 1240 -140 / -140
Physical Exam
-
General: Well Developed, No Apparent Distress and Morbidly Obese
HEENT: Normocephalic, Atraumatic and Moist Mucous Membranes
Respiratory: Clear to Auscultation
Cardiac: Regular Rhythm and S1/S2; Negative Murmur, Rub or Gallop
GI: Soft, Nontender, Nondistended and Normal Bowel Sounds; Negative Organomegaly
Rectal: Deferred by Provider
Musculoskeletal: No Clubbing, No Cyanosis and No Edema
Skin: Negative Rash
Neuro: Awake, No Motor Deficits and Nonfocal/Grossly Intact
Psych: Calm
Data Reviewed
-
Total Time Spent with Patient (in minutes): 55
[2025-02-20 11:38] LABS: Glucose - Point of Care 246 mg/dl (70-99)
--- NOTE | 2025-02-20 13:01 | CM ---
CM following for discharge plans. Current recommendations are for VN vs. SNF.
Plan: CM to follow up after PT/OT works with patient again.
[2025-02-20] MEDS: NOVOLOG FLEXPEN-LOW RESISTANCE 3 UNITS SC (13:39)
[2025-02-20] MEDS: TYLENOL 650 MG PO (16:26)
[2025-02-20 17:06] LABS: Glucose - Point of Care 220 mg/dl (70-99)
--- NOTE | 2025-02-20 17:33 | PTCARENOTE ---
Patient INC of urine and stool. Pure wick in use. Urine tea colored. Unable to obtain stools samples due mixing with urine. Patient had a small stool mixed with some blood. Sacral foam intact. VS stable. SR with underlying afib. Tylenol
given for moderate all over body pain. Call chaves in reach. Will monitor.
[2025-02-20] MEDS: NOVOLOG FLEXPEN-LOW RESISTANCE 2 UNITS SC (18:29)
--- NOTE | 2025-02-20 18:45 | PTCARENOTE ---
Patient hypotensive BP's 75-90/60's, low grade temperatures. Afib with pacing on monitor. Patient reports feeling fatigue. Orders obtained to transfer back to IMU.
[2025-02-20 21:24] LABS: Hematocrit 25.8 % (37.0-47.0); Hemoglobin 8.4 g/dL (12.0-16.0); Mean Corp Hgb Conc. 32.6 g/dL (33.0-37.0); Mean Corpuscular Volume 95.6 fL (81.0-99.0); Platelet Count 108 10^3/uL (130-400); Red Cell Dist. Width 14.2 % (11.5-14.5)
[2025-02-20] MEDS: LANTUS 0.08 UNITS SC (21:40)
[2025-02-20] MEDS: LIPITOR 40 MG PO (21:40)
[2025-02-20 21:43] LABS: Blood Urea Nitrogen 31 mg/dl (7-17); Calcium 7.5 mg/dl (8.4-10.2); Carbon Dioxide 17 mmol/L (22-30); Chloride 109 mmol/L (98-107); Estimated Creatinine Clearance 27 ml/min; Glucose 226 mg/dl (70-99); Magnesium 1.7 mg/dl (1.6-2.3); Potassium 3.9 mmol/L (3.5-5.1); Sodium 131 mmol/L (135-145); eGFR 27.20
[2025-02-20 21:59] LABS: Glucose - Point of Care 247 mg/dl (70-99)
--- NOTE | 2025-02-20 22:13 | W.PN.UPDATE ---
Update Note
Progress Note Update
RN reported patient had an episode of moderate amount of burgundy/blood stool once. BP at that time was 98.3. HR 110 BP 94/66 MAP 75. patient asymtomatic at present. Labs ordered
hgb drop 9.2->> 8.4, on Eliquis for Afib, will hold Eliquis and consult colorectal team as patient is known to them. 98.3. HR 110 BP 94/66 MAP 75
[2025-02-20] MEDS: ELIQUIS PO (22:30)
[2025-02-21] VITALS (12 sets, daily range): BP systolic 109–141; BP diastolic 58–114; BMI 37.3
--- NOTE | 2025-02-21 01:34 | PTCARENOTE ---
Assumed care for patient overnight. At change of shift pt had a moderate amount of burgundy blood mixed with stool. RAVIN Sánchez made aware, orders for labs. Hgb 8.4. Consult for colorectal surgery. Pt in A-fib on the monitor HR 120s. Nighttime
dose Eliquis held per RAVIN Sánchez see OCT. Pt remains on RA SpO2 96%. HR 95. Call chaves within reach.
[2025-02-21] MEDS: SYNTHROID 150 MCG PO (05:59)
[2025-02-21 06:20] LABS: Hematocrit 27.5 % (37.0-47.0); Hemoglobin 9.0 g/dL (12.0-16.0); Mean Corp Hgb Conc. 32.7 g/dL (33.0-37.0); Mean Corpuscular Volume 95.2 fL (81.0-99.0); Nucleated Red Blood Cells % 0 %; Platelet Count 135 10^3/uL (130-400); Red Cell Dist. Width 14.1 % (11.5-14.5)
[2025-02-21 06:43] LABS: ALT (SGPT) 20 U/L (0-35); AST (SGOT) 16 U/L (14-36); Albumin 2.7 g/dl (3.5-5.0); Alkaline Phosphatase 64 U/L (38-126); Blood Urea Nitrogen 30 mg/dl (7-17); Calcium 7.7 mg/dl (8.4-10.2); Carbon Dioxide 19 mmol/L (22-30); Chloride 112 mmol/L (98-107); Estimated Creatinine Clearance 30 ml/min; Glucose 173 mg/dl (70-99); Potassium 4.0 mmol/L (3.5-5.1); Sodium 136 mmol/L (135-145); Total Protein 5.8 g/dl (6.3-8.2); eGFR 31.08
[2025-02-21] MEDS: NOVOLOG FLEXPEN-LOW RESISTANCE SC (08:02)
[2025-02-21] MEDS: TOPROL XL 25 MG PO ×2 (08:03→19:50)
[2025-02-21] MEDS: ELIQUIS PO ×2 (08:03→11:29)
[2025-02-21] MEDS: FLOMAX 0.4 MG PO (08:03)
[2025-02-21] MEDS: SODIUM BICARBONATE 650 MG PO ×3 (08:03→21:52)
[2025-02-21] MEDS: VISBIOME 1 CAP PO (08:03)
[2025-02-21] MEDS: PACERONE 200 MG PO (08:03)
[2025-02-21] MEDS: DESENEX/MITRAZOL/ZEASORB 1 APPLIC TOPICAL ×2 (08:03→19:48)
[2025-02-21 08:13] LABS: Glucose - Point of Care 147 mg/dl (70-99)
[2025-02-21] MEDS: TYLENOL 650 MG PO (09:09)
[2025-02-21] MEDS: STERILE WATER FOR INJECTION 10 ML IV (11:36)
[2025-02-21] MEDS: ROCEPHIN 1000 MG IV (11:36)
[2025-02-21] MEDS: NOVOLOG FLEXPEN-LOW RESISTANCE 2 UNITS SC (11:42)
[2025-02-21 11:54] LABS: Glucose - Point of Care 210 mg/dl (70-99)
[2025-02-21 12:01] LABS: Hematocrit 25.6 % (37.0-47.0); Hemoglobin 8.2 g/dL (12.0-16.0)
--- NOTE | 2025-02-21 13:06 | CON.MD ---
Addendum entered and electronically signed by Gerry Bradford MD 02/21/25 13:20:
Correction: This patient's operation by me is posted for 03/28/2025, not , 03/13/2025.
Original Note:
Consultation - Medical
-
Full consult to be dictated.
History, vitals, labs, imaging reviewed. Patient seen and examined.
74-year-old female well-known to me with a diagnosis of squamous cell carcinoma of the anus/anal cancer which has been treated by Bhavya protocol chemoradiation. She unfortunately has had persistent disease in the anal area despite treatment. She
has no obvious metastatic disease on prior imaging although her last staging CT was over a month ago. I have recommended a robotic abdominal perineal resection with possible flap reconstruction by myself and Dr. Chen (of plastics) which is
tentatively scheduled for March 13. The operation was initially scheduled for this month, however the patient was reluctant to 'zepeda into it'. She is an inpatient now in the IMU with pneumonia and UTI. She apparently passed some transanal blood
recently. I was consulted for a colorectal opinion. On exam at the bedside she does have small amount of blood staining of the perianal skin. Bedside GUADALUPE by me confirms posterior anal canal mass with central ulceration. I believe the tumor is
the most likely source of the bleeding. The best way to address this will be her upcoming surgery. For now agree with holding the Eliquis and serial H&H's. I have also ordered a dry CT of the chest abdomen pelvis with the goal of repeat staging
as it has been over a month since her prior CT. Will follow along.
Consultation
-
Date/Time Consultation Requested: 02/21/2025
Performing Provider: Dr. Bradford
Reason for Consultation: Rectal bleeding/patient known to me
--- NOTE | 2025-02-21 13:26 | W.PN.HOSP.TC ---
Today's Communication/Plan
-
serial H&H
Ceftriaxoen/Doxy
Assessment / Plan
Assessment / Plan
74yo F with diagnosis of retal mass, planned for eventual resection with in Mar 2025, HLD, Afib on Eliquis, DM, hypothyroidism, HTN came with malaise, cough and found to be in septick shock 2/2 pneumonia and URI. Eventially developed
hematochezia, most likely 2/2 bleeding from rectal mass.
A/P:
#Septic shock on admission 2/2 UTI vs LLL pneumonia
Ceftriaxone/Doxy
Ucx with K.pneumonia sensistive to cephalosporin
Bcx NTD
Influenza and COVID-19 PCR neg
#Diarrhea
Stool for c.diff, Cx and WBC
#OSMANY on CKD 3a-b
follow Cr
hold Lasix
#Hematochezia 2/2 rectal CA
Serial H&H
transfuse to keep Hgb>8
ColorectalSx eval
CT abd/pelvis
Hold eliquis with acute bleed - patient understands and accepts risk of stroke
blood transfusion consent signed
#DM type 2 with neuropathy
Insulin SS, basal/bolus, Accuchecks, DM diet
#Hypothyroidism
#Essential HTN
#HLD
#Afib, paroxysmal
restarted toprol
telemetry
cont rest of meds
Hold Lasix
DVT ppx SCDs
Full code
I have spent at least 56min reviewing chart, test results, communication with consultants and providing direct patient care
Patient declined call to family
Anticipated Discharge: > 48 hours
Subjective/Interval History
-
Date of Service: February 21, 2025
Objective Data
-
Labs:
Laboratory Results
02/21/25 02/21/2502/21/25
05:58 11:41 19:30
WBC 8.9
Hgb 9.0 L 8.2 L Pending
Hct 27.5 L 25.6 L Pending
Plt Count 135 D
Sodium 136
Potassium 4.0
Chloride 112 H
Carbon Dioxide 19 L
BUN 30 H
Creatinine 1.7 H
Glucose 173 H
Calcium 7.7 L
Total Bilirubin 0.8
AST 16
ALT 20
Alkaline Phosphatase 64
Vital Signs:
Vital Signs
Temp Pulse Resp BP Pulse Ox
98.4 F 110 17 141/96 97
02/21/25 11:56 02/21/25 08:03 02/21/25 06:00 02/21/25 08:03 02/21/25 06:00
I&O
02/20/25 02/21/25 02/22/25
06:59 06:59 06:59
Intake Total 460 / 460 1005 / 1005
Output Total 600 / 600 800 / 800
Balance -140 / -140 205 / 205
Review of Systems
-
History Source: Patient
All other systems: Reviewed and negative
Constitutional: Reports Fatigue
Physical Exam
-
General: No Apparent Distress
HEENT: Normocephalic
Respiratory: Clear to Auscultation
Cardiac: Regular Rhythm
GI: Soft, Nontender and Nondistended
Musculoskeletal: No Clubbing, No Cyanosis and No Edema
Neuro: Awake, Alert, Oriented and AO x 3
Psych: Calm
--- NOTE | 2025-02-21 14:41 | CM ---
Monitoring H/H, Hgb @ 05:58-9.0 and at 11:41-8.2. Some bloody anal discharge. IV/Rocephin. Discharge POC: 02/19 therapy recommended SNF vs PT. Patient for surgical intervention on 03/13/25 for robotic abdominal perineal resection. Will follow
medical progression and therapy notes to determine discharge POC.
--- NOTE | 2025-02-21 16:31 | PTCARENOTE ---
Assumed care of patient this morning. She is aaox3, pleasant but forgetful. Pt did have one formed/soft brown/maroon stool. Stool sample sent for studies. Eliquis placed on Hold due to rectal bleeding. Pt did eat 50% or greater of meals. Pt sent for
CT scan. Q2T maintained. H&H and type and screen obtained per orders. Assessment, care and VS as charted.
--- NOTE | 2025-02-21 16:53 | W.PN.UPDATE ---
Update Note
Progress Note Update
Repeat CT of the chest abdomen and pelvis reviewed. No evidence for distant metastatic disease given the limitations of a noncontrast study. There is evidence for pneumonia, not surprisingly given her chest x-ray results from a few days ago.
Patient was updated via phone and appreciated the call. I reinforced to the patient that the planned operation on her is March 28.
[2025-02-21] MEDS: NOVOLOG FLEXPEN-LOW RESISTANCE 1 UNITS SC (17:55)
[2025-02-21 18:05] LABS: Glucose - Point of Care 176 mg/dl (70-99)
[2025-02-21] MEDS: VIBRAMYCIN 100 MG PO (19:49)
[2025-02-21 20:02] LABS: Hematocrit 26.9 % (37.0-47.0); Hemoglobin 8.8 g/dL (12.0-16.0)
[2025-02-21] MEDS: LIPITOR 40 MG PO (21:52)
[2025-02-21] MEDS: LANTUS 0.08 UNITS SC (21:53)
[2025-02-21 22:03] LABS: Glucose - Point of Care 187 mg/dl (70-99)
[2025-02-21 22:46] LABS: Glucose - Point of Care 181 mg/dl (70-99)
[2025-02-22] VITALS (14 sets, daily range): BP systolic 102–139; BP diastolic 68–94; BMI 37.4
--- NOTE | 2025-02-22 00:55 | PTCARENOTE ---
AAOx3, pleasant. Pt had a large formed BM no notable blood, slightly darker brown color. Eliquis on hold. A-fib on the monitor. HR 87. 98% SpO2 on room air. Sacral area cleansed with saline and new heart border foam. Sacral area reddened. Moisture
barrier cream applied. Assessment, care, and vitals as charted. Pt tolerating frequent turning and repositioning.
[2025-02-22 04:15] LABS: Hematocrit 27.9 % (37.0-47.0); Hemoglobin 9.0 g/dL (12.0-16.0); Mean Corp Hgb Conc. 32.3 g/dL (33.0-37.0); Mean Corpuscular Volume 95.2 fL (81.0-99.0); Nucleated Red Blood Cells % 0 %; Platelet Count 130 10^3/uL (130-400); Red Cell Dist. Width 14.0 % (11.5-14.5)
[2025-02-22 04:42] LABS: ALT (SGPT) 16 U/L (0-35); AST (SGOT) 21 U/L (14-36); Albumin 2.7 g/dl (3.5-5.0); Alkaline Phosphatase 67 U/L (38-126); Blood Urea Nitrogen 30 mg/dl (7-17); Calcium 7.8 mg/dl (8.4-10.2); Carbon Dioxide 20 mmol/L (22-30); Chloride 111 mmol/L (98-107); Estimated Creatinine Clearance 34 ml/min; Glucose 162 mg/dl (70-99); Potassium 4.3 mmol/L (3.5-5.1); Sodium 136 mmol/L (135-145); Total Protein 5.7 g/dl (6.3-8.2); eGFR 36.12
[2025-02-22] MEDS: SYNTHROID 150 MCG PO (05:51)
[2025-02-22 07:57] LABS: Glucose - Point of Care 150 mg/dl (70-99)
[2025-02-22] MEDS: PACERONE 200 MG PO (08:47)
[2025-02-22] MEDS: DESENEX/MITRAZOL/ZEASORB 1 APPLIC TOPICAL ×2 (08:47→19:44)
[2025-02-22] MEDS: SODIUM BICARBONATE 650 MG PO ×3 (08:47→22:17)
[2025-02-22] MEDS: FLOMAX 0.4 MG PO (08:47)
[2025-02-22] MEDS: VIBRAMYCIN 100 MG PO ×2 (08:47→19:44)
[2025-02-22] MEDS: TOPROL XL 25 MG PO ×2 (08:47→19:44)
[2025-02-22] MEDS: VISBIOME 1 CAP PO (08:47)
[2025-02-22] MEDS: NOVOLOG FLEXPEN-LOW RESISTANCE 1 UNITS SC (08:48)
[2025-02-22] MEDS: STERILE WATER FOR INJECTION 10 ML IV (10:03)
[2025-02-22] MEDS: ROCEPHIN 1000 MG IV (10:03)
--- NOTE | 2025-02-22 10:10 | PTCARENOTE ---
Pt seen by surgery team at bedside. Rectal exam done - no sign of bleeding. Pt incontinent of large amount of urine - pure wick placed. Pt is alert and pleasant.
--- NOTE | 2025-02-22 10:13 | W.PN.CRS1 ---
Addendum entered and electronically signed by Prosper Vasques MD 02/22/25 11:19:
I saw and examined the patient.
The Wave Soldering Machine Operator's note was reviewed and I agree with the note.
Comment: No specific complaints. Reports brown BM and no further bloody drainage. On rectal exam perianal area is dry, GUADALUPE negative for blood, positive for brown stool. OK for diet as perla. All other care as per primary team. Pls call with ?s
Original Note:
Today's Communication / Plan
-
Diet as tolerated
Assessment/Plan
-
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 She unfortunately has had persistent disease in the anal area despite treatment. She has no obvious metastatic
disease on imaging.
Robotic abdominal perineal resection with possible flap reconstruction with Dr. Bradford and Dr. hCen (of plastics) is tentatively scheduled next month.
She was evaluated this admission for rectal bleeding secondary to the known lesion. Currenty resolved on GUADALUPE with passage of brown stool.
On ABX for UTI with persistent low grade fever
H/H stable
Plan:
Diet as tolerated
AC as per primary team
CRS to follow peripherally, please call with questions concerns
Subjective Data
Subjective Data
Date of Service: February 22, 2025
Pt seen and examined at bedside with Dr. Vasques. Denies n/v. Tolerating diet. Incontinent of urine. Diarrhea yesterday which has slowed, incontinent of stool.
Objective Data
-
Vital Signs
Temp Pulse Resp BP Pulse Ox
98.7 F 104 20 139/88 96
02/22/25 07:55 02/22/25 08:47 02/22/25 06:00 02/22/25 08:47 02/22/25 06:00
Intake & Output
02/21/25 02/22/2525
06:59 06:59 06:59
Intake Total 1005 / 1005 480 / 480 180 / 180
Output Total 800 / 800
Balance 205 / 205 480 / 480 180 / 180
Intake:
Oral fluids 1005 / 1005 480 / 480 180 / 180
Output:
Urine, Voided 800 / 800
Other:
How many times incontinent 1 1
MODERATE amount urine
How many times incontinent 2 1 1
SATURATED amount urine
Lab Results
02/22/25 04:06
02/22/25 04:06
Physical Exam
-
General: No Acute Distress and AOx3
Abdomen: Soft, Non Distended and Non Tender
Rectal: No Gross Bleeding
[2025-02-22 12:46] LABS: Glucose - Point of Care 153 mg/dl (70-99)
--- NOTE | 2025-02-22 13:06 | W.PN.HOSP.TC ---
Today's Communication/Plan
-
restart Eliquis
Lasix
Labs in AM
PT/OT
Possible d/c in AM if labs improving
Assessment / Plan
Assessment / Plan
74yo F with diagnosis of retal mass, planned for eventual resection with in Mar 2025, HLD, Afib on Eliquis, DM, hypothyroidism, HTN came with malaise, cough and found to be in septick shock 2/2 pneumonia and URI. Eventially developed
hematochezia, most likely 2/2 bleeding from rectal mass, CT showed minimal rectal wall changes and ColorectalSx does not plan on intervention. Eliquis restarted as no additional bleeding
A/P:
#Septic shock on admission 2/2 UTI vs LLL pneumonia
Ceftriaxone/Doxy
Ucx with K.pneumonia sensitive to cephalosporin
Bcx NTD
Influenza and COVID-19 PCR neg
#Diarrhea
Stool neg for c.diff, and WBC
Cx pedning
#Acute on chronic HFpEF exacerbation
#b/l pleural effusions
most likely IVF with septic resuscitation to blame
LAsix and follow Cr
#OSMANY on CKD 3a-b
follow Cr
hold Lasix
#Hematochezia 2/2 rectal CA
#pretracheal lymph node measuring 2.0 x 1.3 cm
Outpatient oncology
Serial H&H
transfuse to keep Hgb>8
ColorectalSx eval
CT abd/pelvis: Circumferential anal wall thickening consistent with known malignancy, No evidence of metastatic disease
blood transfusion consent signed
#DM type 2 with neuropathy
Insulin SS, basal/bolus, Accuchecks, DM diet
#Hypothyroidism
#Essential HTN
#HLD
#Afib, paroxysmal
restarted toprol
telemetry
cont rest of meds
Hold Lasix
#Asymptomatic cholelithiasis
no follow up advised
DVT ppx SCDs
Full code
I have spent at least 56min reviewing chart, test results, communication with consultants and providing direct patient care
Patient declined call to family
Anticipated Discharge: 24 - 48 hours
Subjective/Interval History
-
Date of Service: February 22, 2025
Objective Data
-
Labs:
Laboratory Results
02/22/25 02/22/25 02/22/25
04:06 04:06 04:06
WBC 7.8
Hgb 9.0 L Cancelled
Hct 27.9 L Cancelled
Plt Count 130
Sodium 136
Potassium 4.3
Chloride 111 H
Carbon Dioxide 20 L
BUN 30 H
Creatinine 1.5 H
Glucose 162 H
Calcium 7.8 L
Total Bilirubin 0.7
AST 21
ALT 16
Alkaline Phosphatase 67
Vital Signs:
Vital Signs
Temp Pulse Resp BP Pulse Ox
98.7 F 104 20 139/88 97
02/22/25 07:55 02/22/25 08:47 02/22/25 06:00 02/22/25 08:47 02/22/25 10:43
I&O
02/21/25 02/22/25 02/23/25
06:59 06:59 06:59
Intake Total 1005 / 1005 480 / 480 180 / 180
Output Total 800 / 800
Balance 205 / 205 480 / 480 180 / 180
Review of Systems
-
History Source: Patient
All other systems: Reviewed and negative
Physical Exam
-
General: No Apparent Distress
HEENT: Normocephalic
Respiratory: Clear to Auscultation
GI: Soft, Nontender and Nondistended
Neuro: Awake, Alert, Oriented and AO x 3
Psych: Calm
[2025-02-22] MEDS: NOVOLOG FLEXPEN-LOW RESISTANCE SC (13:30)
[2025-02-22] MEDS: LASIX 40 MG IV (15:07)
[2025-02-22] MEDS: NOVOLOG FLEXPEN-LOW RESISTANCE 2 UNITS SC (16:46)
[2025-02-22 16:54] LABS: Glucose - Point of Care 206 mg/dl (70-99)
--- NOTE | 2025-02-22 19:26 | W.PN.UPDATE ---
Update Note
Progress Note Update
1925 Notified by RN that pt has been having urine frequency and incontinence x 8 times. Bladder scan done and was >1000ml. Will place brewer.
[2025-02-22] MEDS: ELIQUIS 5 MG PO (19:44)
[2025-02-22 21:20] LABS: Glucose - Point of Care 210 mg/dl (70-99)
--- NOTE | 2025-02-22 21:32 | PTCARENOTE ---
Pt bladder scanned @ 19:10 d/t frequent urination and abdominal 'pressure'. Bladder scan showed >1000. AUTOMATIC OPERATOR notified via tiger text. Brewer order placed. 16F brewer placed, initial output 1200ml clear yellow urine. Pt states that she feels relief of
pressure in abdomen. VSS. Care ongoing.
[2025-02-22] MEDS: LANTUS 0.08 UNITS SC (22:17)
[2025-02-22] MEDS: LIPITOR 40 MG PO (22:17)
[2025-02-23] VITALS (12 sets, daily range): BP systolic 92–116; BP diastolic 58–86; BMI 39.6
[2025-02-23] MEDS: SYNTHROID 150 MCG PO (05:23)
[2025-02-23 05:54] LABS: Hematocrit 26.4 % (37.0-47.0); Hemoglobin 8.8 g/dL (12.0-16.0); Mean Corp Hgb Conc. 33.3 g/dL (33.0-37.0); Mean Corpuscular Volume 94.0 fL (81.0-99.0); Nucleated Red Blood Cells % 0 %; Platelet Count 147 10^3/uL (130-400); Red Cell Dist. Width 14.1 % (11.5-14.5)
[2025-02-23 06:08] LABS: Chloride 110 mmol/L (98-107); Estimated Creatinine Clearance 38 ml/min; eGFR 39.23
[2025-02-23 06:35] LABS: Blood Urea Nitrogen 28 mg/dl (7-17); Calcium 7.9 mg/dl (8.4-10.2); Carbon Dioxide 22 mmol/L (22-30); Glucose 145 mg/dl (70-99); Magnesium 1.7 mg/dl (1.6-2.3); Potassium 3.8 mmol/L (3.5-5.1); Sodium 138 mmol/L (135-145)
[2025-02-23] MEDS: NOVOLOG FLEXPEN-LOW RESISTANCE SC (08:17)
[2025-02-23 08:26] LABS: Glucose - Point of Care 117 mg/dl (70-99)
[2025-02-23] MEDS: DESENEX/MITRAZOL/ZEASORB 1 APPLIC TOPICAL ×2 (09:02→21:06)
[2025-02-23] MEDS: PACERONE 200 MG PO (09:02)
[2025-02-23] MEDS: VIBRAMYCIN 100 MG PO ×2 (09:04→21:06)
[2025-02-23] MEDS: TOPROL XL 25 MG PO (09:04)
[2025-02-23] MEDS: VISBIOME 1 CAP PO (09:04)
[2025-02-23] MEDS: ELIQUIS 5 MG PO ×2 (09:04→21:06)
[2025-02-23] MEDS: SODIUM BICARBONATE 650 MG PO ×3 (09:04→21:06)
[2025-02-23] MEDS: LASIX IV (09:05)
[2025-02-23] MEDS: FLOMAX 0.4 MG PO (09:05)
[2025-02-23] MEDS: ROCEPHIN 1000 MG IV (11:16)
[2025-02-23] MEDS: STERILE WATER FOR INJECTION 10 ML IV (11:16)
--- NOTE | 2025-02-23 12:42 | W.PN.HOSP.TC ---
Today's Communication/Plan
-
follow AM labs and if stable - DC
TOV today
Assessment / Plan
Assessment / Plan
74yo F with diagnosis of retal mass, planned for eventual resection with in Mar 2025, HLD, Afib on Eliquis, DM, hypothyroidism, HTN came with malaise, cough and found to be in septick shock 2/2 pneumonia and URI. Eventially developed
hematochezia, most likely 2/2 bleeding from rectal mass, CT showed minimal rectal wall changes and ColorectalSx does not plan on intervention. Eliquis restarted as no additional bleeding noted. Lasix IV for treatment of fluid overload. Weaned off
O2. PT/OT recommending rehab
A/P:
#Septic shock on admission 2/2 UTI vs LLL pneumonia
Ceftriaxone/Doxy
Ucx with K.pneumonia sensitive to cephalosporin
Bcx NTD
Influenza and COVID-19 PCR neg
#Acute urinary retention
most likely 2/2 poor ambulatory status
TOV and PVR with bladder scan on 02/23/25
Patient has no neurological deficit in LE, no lower back pain and no paresthesia in perianal area.
Developed polyuria after Lasix
#Diarrhea
Stool neg for c.diff, and WBC
Cx NTD
#Acute on chronic HFpEF exacerbation
#b/l pleural effusions
most likely due to IVF during sepsis treatment
LAsix and follow Cr - Lasix switched to MOWeFri on 02/23/25 as patient weaned off O2
#OSMANY on CKD 3a-b
Cr on baseline
follow Cr
#Hematochezia 2/2 rectal CA
#pretracheal lymph node measuring 2.0 x 1.3 cm
Outpatient oncology
Serial H&H
transfuse to keep Hgb>8
ColorectalSx eval
CT abd/pelvis: Circumferential anal wall thickening consistent with known malignancy, No evidence of metastatic disease
blood transfusion consent signed
#DM type 2 with neuropathy
Insulin SS, basal/bolus, Accuchecks, DM diet
#Hypothyroidism
#Essential HTN
#HLD
#Afib, paroxysmal
restarted toprol
telemetry
cont rest of meds
#Asymptomatic cholelithiasis
no follow up advised
DVT ppx SCDs
Full code
I have spent at least 56min reviewing chart, test results, communication with consultants and providing direct patient care
Patient declined call to family
Anticipated Discharge: Within 24 hours
Subjective/Interval History
-
Date of Service: February 23, 2025
Objective Data
-
Labs:
Laboratory Results
02/23/25
05:30
WBC 6.1
Hgb 8.8 L
Hct 26.4 L
Plt Count 147
Sodium 138
Potassium 3.8
Chloride 110 H
Carbon Dioxide 22
BUN 28 H
Creatinine 1.4 H
Glucose 145 H
Calcium 7.9 L
Vital Signs:
Vital Signs
Temp Pulse Resp BP Pulse Ox
98.0 F 102 19 107/76 97
02/23/25 03:40 02/23/25 10:00 02/23/25 10:00 02/23/25 10:00 02/23/25 06:00
I&O
02/22/25 02/23/25 02/24/25
06:59 06:59 06:59
Intake Total 480 / 480 180 / 180
Output Total 2400 / 2400
Balance 480 / 480 -2220 / -2220
Review of Systems
-
History Source: Patient
All other systems: Reviewed and negative
Physical Exam
-
General: No Apparent Distress
HEENT: Normocephalic
Respiratory: Clear to Auscultation
GI: Soft, Nontender and Nondistended
Skin: Warm
Neuro: Awake, Alert, Oriented and AO x 3
Psych: Calm
[2025-02-23 13:52] LABS: Glucose - Point of Care 194 mg/dl (70-99)
[2025-02-23] MEDS: NOVOLOG FLEXPEN-LOW RESISTANCE 1 UNITS SC ×2 (15:07→17:31)
--- NOTE | 2025-02-23 15:52 | PTCARENOTE ---
Rec'd pt this AM. brewer removed per order. Pt able to void in BSC 500ml with no PVR remaining. complaining of gout pain. x1 assist with walker OOB. Tolerated being OOB for one hour before requesting to get back in bed due to not being able to get
comfortable. updated Dr. Hurt.
[2025-02-23 16:11] LABS: Glucose - Point of Care 161 mg/dl (70-99)
[2025-02-23] MEDS: LIPITOR 40 MG PO (21:06)
[2025-02-23] MEDS: TOPROL XL PO (21:06)
[2025-02-23] MEDS: LANTUS 0.08 UNITS SC (21:08)
[2025-02-23 21:16] LABS: Glucose - Point of Care 215 mg/dl (70-99)
[2025-02-24] VITALS (10 sets, daily range): BP systolic 92–120; BP diastolic 60–89; BMI 36.4
[2025-02-24] MEDS: SYNTHROID 150 MCG PO (05:21)
[2025-02-24 05:47] LABS: Hematocrit 27.8 % (37.0-47.0); Hemoglobin 9.0 g/dL (12.0-16.0); Mean Corp Hgb Conc. 32.4 g/dL (33.0-37.0); Mean Corpuscular Volume 94.6 fL (81.0-99.0); Nucleated Red Blood Cells % 0 %; Platelet Count 145 10^3/uL (130-400); Red Cell Dist. Width 14.0 % (11.5-14.5)
[2025-02-24 06:14] LABS: ALT (SGPT) 15 U/L (0-35); AST (SGOT) 17 U/L (14-36); Albumin 2.7 g/dl (3.5-5.0); Alkaline Phosphatase 67 U/L (38-126); Blood Urea Nitrogen 26 mg/dl (7-17); Calcium 8.1 mg/dl (8.4-10.2); Carbon Dioxide 25 mmol/L (22-30); Chloride 110 mmol/L (98-107); Estimated Creatinine Clearance 39 ml/min; Glucose 161 mg/dl (70-99); Potassium 3.9 mmol/L (3.5-5.1); Sodium 137 mmol/L (135-145); Total Protein 5.7 g/dl (6.3-8.2); eGFR 42.88
[2025-02-24] MEDS: LASIX 40 MG PO (07:55)
[2025-02-24] MEDS: TOPROL XL 50 MG PO (07:55)
[2025-02-24] MEDS: VIBRAMYCIN 100 MG PO (07:58)
[2025-02-24] MEDS: PACERONE 200 MG PO (07:58)
[2025-02-24] MEDS: ELIQUIS 5 MG PO (07:58)
[2025-02-24] MEDS: DESENEX/MITRAZOL/ZEASORB 1 APPLIC TOPICAL (07:58)
[2025-02-24] MEDS: SODIUM BICARBONATE 650 MG PO ×2 (07:58→16:13)
[2025-02-24] MEDS: FLOMAX 0.4 MG PO (07:58)
[2025-02-24] MEDS: VISBIOME 1 CAP PO (07:58)
[2025-02-24 08:01] LABS: Glucose - Point of Care 132 mg/dl (70-99)
[2025-02-24] MEDS: NOVOLOG FLEXPEN-LOW RESISTANCE SC (08:04)
[2025-02-24] MEDS: ROCEPHIN 1000 MG IV (09:58)
[2025-02-24] MEDS: STERILE WATER FOR INJECTION 10 ML IV (09:58)
--- NOTE | 2025-02-24 10:19 | W.PN.HOSP.TC ---
Today's Communication/Plan
-
Hgb stable, no complains, medcially stable for d/c
Assessment / Plan
Assessment / Plan
74yo F with diagnosis of retal mass, planned for eventual resection with in Mar 2025, HLD, Afib on Eliquis, DM, hypothyroidism, HTN came with malaise, cough and found to be in septick shock 2/2 pneumonia and URI. Eventially developed
hematochezia, most likely 2/2 bleeding from rectal mass, CT showed minimal rectal wall changes and ColorectalSx does not plan on intervention. Eliquis restarted as no additional bleeding noted. Lasix IV for treatment of fluid overload. Weaned off
O2. PT/OT recommending rehab
A/P:
#Septic shock on admission 2/2 UTI vs LLL pneumonia
Ceftriaxone/Doxy
Ucx with K.pneumonia sensitive to cephalosporin
plan to complete 10 days of cefuroxime and 7 days doxy upon d/c
Bcx NTD
Influenza and COVID-19 PCR neg
#Acute urinary retention
most likely 2/2 poor ambulatory status
passed TOV with 0ml PVR with bladder scan on 02/23/25
Patient has no neurological deficit in LE, no lower back pain and no paresthesia in perianal area.
Developed polyuria after Lasix
#Diarrhea
Stool neg for c.diff, and WBC
Cx NTD
#Acute on chronic HFpEF exacerbation
#b/l pleural effusions
most likely due to IVF during sepsis treatment
LAsix and follow Cr - Lasix switched to MOWeFri on 02/23/25 as patient weaned off O2
#OSMANY on CKD 3a-b
Cr on baseline
follow Cr
#Hematochezia 2/2 rectal CA
#pretracheal lymph node measuring 2.0 x 1.3 cm
Outpatient oncology
Serial H&H
transfuse to keep Hgb>8
ColorectalSx eval
CT abd/pelvis: Circumferential anal wall thickening consistent with known malignancy, No evidence of metastatic disease
blood transfusion consent signed
#DM type 2 with neuropathy
Insulin SS, basal/bolus, Accuchecks, DM diet
#Hypothyroidism
#Essential HTN
#HLD
#Afib, paroxysmal
restarted toprol
telemetry
cont rest of meds
#Asymptomatic cholelithiasis
no follow up advised
DVT ppx SCDs
Full code
I have spent at least 36min reviewing chart, test results, communication with consultants and providing direct patient care
Patient declined call to family
Anticipated Discharge: Today
Subjective/Interval History
-
Date of Service: February 24, 2025
Objective Data
-
Labs:
Laboratory Results
02/24/25
05:36
WBC 5.0
Hgb 9.0 L
Hct 27.8 L
Plt Count 145
Sodium 137
Potassium 3.9
Chloride 110 H
Carbon Dioxide 25
BUN 26 H
Creatinine 1.3 H
Glucose 161 H
Calcium 8.1 L
Total Bilirubin 0.6
AST 17
ALT 15
Alkaline Phosphatase 67
Vital Signs:
Vital Signs
Temp Pulse Resp BP Pulse Ox
98.6 F 100 17 100/73 94
02/24/25 08:14 02/24/25 08:00 02/24/25 08:00 02/24/25 08:00 02/24/25 08:00
I&O
02/23/25 02/24/25 02/25/25
06:59 06:59 06:59
Intake Total 180 / 180 480 / 480
Output Total 2400 / 2400 750 / 750
Balance -2220 / -2220 -270 / -270
Review of Systems
-
History Source: Patient
All other systems: Reviewed and negative
Physical Exam
-
General: No Apparent Distress
HEENT: Normocephalic
Respiratory: Clear to Auscultation
GI: Soft, Nontender and Nondistended
Musculoskeletal: No Clubbing, No Cyanosis and No Edema
Neuro: Awake, Alert, Oriented and AO x 3
Psych: Calm
--- NOTE | 2025-02-24 10:49 | W.DCSUMMARY ---
Addendum entered and electronically signed by Marc Hurt MD 02/25/25 14:57:
Acute blood loss anemia exacerbated by Eliquis
Original Note:
Discharge Summary
Discharge Data
Date of Admission: 02/18/25
Date of Discharge: 02/24/25
-
Pending Results: No
Hospital Course
74yo F with diagnosis of retal mass s/p chemo and RT in [facility], planned for eventual resection with in Mar 2025, HLD, Afib on Eliquis, DM, hypothyroidism, HTN came with malaise, cough and found to be in septick shock 2/2 pneumonia and URI.
Eventially developed hematochezia, most likely 2/2 bleeding from rectal mass, CT showed minimal rectal wall changes and ColorectalSx does not plan on intervention. Eliquis restarted as no additional bleeding noted. Lasix IV for treatment of fluid
overload. Weaned off O2. PT/OT recommending rehab vs HH and patient elected to go home as she has sufficient support there. Remained on RA on the day of d/c
I have spent at least 36min reviewing chart, test results, communication with consultants and providing direct patient care
Patient was managed for:
#Septic shock on admission 2/2 UTI vs LLL pneumonia
#Acute urinary retention
#Diarrhea
#Acute on chronic HFpEF exacerbation
#b/l pleural effusions
#OSMANY on CKD 3a-b
#Hematochezia 2/2 rectal CA
#pretracheal lymph node measuring 2.0 x 1.3 cm
#DM type 2 with neuropathy
#Hypothyroidism
#Essential HTN
#HLD
#Afib, paroxysmal
#Asymptomatic cholelithiasis
Discharge Plan
-
Patient Disposition: Penitentiary/SNF
Discharge Diagnosis/Procedures: UTI
Diet: Diabetic, Carb Controlled
Driving Restrictions: As prior to admission
Activity Restrictions/Additional Instructions:
Wound Care Instructions Left Lower Buttock DTI- Off-load/change position frequently. Notify WOC RN if wound opens or worsens.
Sacral MASD- Apply barrier ointment BID and PRN
Follow up at wound care center call for an appointment.
Referrals:
Kayla Adame PA-C [Family Provider]
Additional Discharge Medication Instructions: //Continue to follow with colorectal surgery for resection planned for 03/13/25 and established onc in [facility]
Prescriptions:
New
cefuroxime axetil 500 mg tablet
500 mg PO BID Qty: 12 0RF
doxycycline hyclate 100 mg capsule
100 mg PO BID Qty: 7 0RF
metoprolol succinate 50 mg Tablet Extended Release 24 Hr
50 mg PO BID Qty: 60 0RF
Eliquis 5 mg Tablet
5 mg PO BID Qty: 60 0RF
Lactobac/Bifidobac [Visbiome]
1 cap PO DAILY Qty: 30 0RF
Continued
tamsulosin 0.4 MG capsule
0.4 mg PO DAILY
cholecalciferol (vitamin D3) 1,000 UNITS tablet
1,000 units PO DAILY
atorvastatin 40 mg Tablet
40 mg PO HS
potassium chloride 20 mEq Tablet Extended Release
20 meq PO HS
cyanocobalamin (vitamin B-12) 1,000 mcg Tablet
1,000 mcg PO DAILY Qty: 30 0RF
amiodarone 200 mg tablet
200 mg PO DAILY Qty: 30 0RF
ferrous sulfate [iron] 325 mg (65 mg iron) Tablet
325 mg PO DAILY
folic acid 1 mg Tablet
1 mg PO DAILY
insulin degludec [Tresiba FlexTouch U-100] 100 UNIT/ML insulin pen
8 unit SQ HS
furosemide 40 mg tablet
40 mg PO MOWEFR
levothyroxine 150 mcg tablet
150 mcg PO DAILY
Changed
glipizide 5 mg tablet
2.5 mg PO DAILY Qty: 0 0RF
Rx Instructions:
TAKE Glipizide 2.5 mg once a day in AM if her Blood glucose is >135 before lunch and dinner.
Discontinued
Eliquis 2.5 mg Tablet
2.5 mg PO BID
metoprolol succinate 25 mg tablet extended release 24 hr
25 mg PO BID
Discharge Date and Time
Print Language: YEMENI
--- NOTE | 2025-02-24 11:42 | CM ---
Patient has been medically cleared for discharge to home with [facility] RN, PT/OT skilled services. Family will transport home. IMM completed.
--- NOTE | 2025-02-24 11:44 | PN.CDI ---
CDI
- -
CDI:
Physician Documentation Request
Admit Date: 02/18/25 05:43
Dear Doctor Licha,
Please review the following and provide your response in the progress notes.
Clinical Indicators:
Pt admitted with septic shock 2/2 UTI vs LLL PNA
Progress note 02/21, ' Eventually developed hematochezia, most likely 2/2 bleeding from rectal mass....#Hematochezia 2/2 rectal CA Serial H&Htransfuse to keep Hgb>8...Hold eliquis with acute bleed - patient understands and accepts risk of stroke
blood transfusion consent signed...'
Colorectal consult, ' rectal bleeding, which I believe is related to her known anal cancer. Would hold oninterventions for now. Agree with holding Eliquis and serial H and H's...'
Please clarify the relationship between these conditions:
Yes, _hematochezia__ is related to/associated with/exacerbated by Eliquis use ___.
No, _hematochezia__ is not related to/associated with/exacerbated by Eliquis use ___ but it is due to ___. (Please specify)
Other ( please specify)
Use of terms such as suspected, likely, concern for, or probable (associated with a specific diagnosis that is being evaluated, monitored, or treated as if it exists) are acceptable and can be coded in the inpatient setting, when documented at the
time of discharge.
Thank you,
Janeen Sultana RN
CDI Specialist
[place] [facility]
Please use your independent medical judgment in providing your response.
[2025-02-24 11:48] LABS: Glucose - Point of Care 189 mg/dl (70-99)
--- NOTE | 2025-02-24 11:52 | PN.CDI ---
CDI
- -
CDI:
Physician Documentation Request
Admit Date: 02/18/25 05:43
Dear Doctor Licha,
Please review the following and provide your response in the progress notes.
Clinical Indicators:
Pt admitted with septic shock 2/2 UTI vs LLL PNA
Progress note 02/21, ' Eventually developed hematochezia, most likely 2/2 bleeding from rectal mass....#Hematochezia 2/2 rectal CA Serial H&Htransfuse to keep Hgb>8...Hold eliquis with acute bleed - patient understands and accepts risk of stroke
blood transfusion consent signed...'
Colorectal consult, ' rectal bleeding, which I believe is related to her known anal cancer. Would hold oninterventions for now. Agree with holding Eliquis and serial H and H's...'
Trended Hemoglobin/Hematocrits below
02/18/25 02/19/25
02:38 04:47
Hgb 11.4 L 9.4 L
Hct 34.4 L 29.3 L
02/20/25 02/21/25 02/23/25
21:16 11:41 05:30
Hgb 8.4 L 8.2 L 8.8 L
Hct 25.8 L 25.6 L 26.4 L
02/24/25
05:36
Hgb 9.0 L
Hct 27.8 L
Please provide a diagnosis for the above findings :
Acute blood loss anemia/ Anemia due to cancer
Anemia due to cancer
Other ( please specify)
Use of terms such as suspected, likely, concern for, or probable (associated with a specific diagnosis that is being evaluated, monitored, or treated as if it exists) are acceptable and can be coded in the inpatient setting, when documented at the
time of discharge.
Thank you,
Janeen Sultana RN
CDI Specialist
[place] [facility]
Please use your independent medical judgment in providing your response.
[2025-02-24] MEDS: NOVOLOG FLEXPEN-LOW RESISTANCE 1 UNITS SC (12:37)
--- NOTE | 2025-02-24 16:06 | PTCARENOTE ---
Patient AOx3. Patient has flat affect. A fib on the monitor. On RA with SpO2 greater than 92%. Incontinent to bowel at times. Utilizes bedside commode for urine. Assist x1 when OOB. Call chaves within reach, bed in lowest position, and bed of wheels
locked.
--- NOTE | 2025-02-24 16:28 | PTCARENOTE ---
D/C paperwork reviewed with patient and son. Patient verbalized understanding. Escorted by transport to be d/c. Patient belongings sent with patient.
== END 2025-02-24 16:37 | disposition home health service (06) | DRG 871 ==
LOC: IMU 05:43
PROVIDERS: Hospitalist; Nurse Practitioner Gerontology; Physician Assistant; ADMITTING PHYSICIAN Hospitalist; ATTENDING PHYSICIAN Internal Medicine; EMERGENCY PHYSICIAN Emergency Medicine; FAMILY PHYSICIAN Physician Assistant; OTHER PHYSICIAN Surgery
DX: A41.9 Sepsis, unspecified organism (principal); I50.33 Acute on chronic diastolic (congestive) heart failure; J18.9 Pneumonia, unspecified organism; N39.0 Urinary tract infection, site not specified; N17.9 Acute kidney failure, unspecified; I13.0 Hypertensive heart and chronic kidney disease with heart failure and stage 1 through stage 4 chronic kidney disease, or unspecified chronic kidney disease; C21.8 Malignant neoplasm of overlapping sites of rectum, anus and anal canal; I48.19 Other persistent atrial fibrillation; D62 Acute posthemorrhagic anemia; D68.32 Hemorrhagic disorder due to extrinsic circulating anticoagulants; E87.20 Acidosis, unspecified; N18.31 Chronic kidney disease, stage 3a; E11.22 Type 2 diabetes mellitus with diabetic chronic kidney disease; E11.40 Type 2 diabetes mellitus with diabetic neuropathy, unspecified; E03.9 Hypothyroidism, unspecified; E78.00 Pure hypercholesterolemia, unspecified; K80.20 Calculus of gallbladder without cholecystitis without obstruction; I25.10 Atherosclerotic heart disease of native coronary artery without angina pectoris; E66.9 Obesity, unspecified; Z86.73 Personal history of transient ischemic attack (TIA), and cerebral infarction without residual deficits; L89.152 Pressure ulcer of sacral region, stage 2; I07.1 Rheumatic tricuspid insufficiency; Z79.01 Long term (current) use of anticoagulants; Z79.4 Long term (current) use of insulin; Z79.84 Long term (current) use of oral hypoglycemic drugs; Z79.890 Hormone replacement therapy; Z87.440 Personal history of urinary (tract) infections; Z92.21 Personal history of antineoplastic chemotherapy; Z11.52 Encounter for screening for COVID-19
CPT/HCPCS: 51701; 71045; 71250; 74176; 80048; 80053; 81003; 81015; 82962; 83036; 83605; 83735; 83880; 84132; 84443; 85014; 85018; 85025; 85027; 86850; 86900; 86901; 87040; 87045; 87046; 87077; 87086; 87186; 87324; 87427; 87449; 87502; 87811; 89055; 93005; 96361; 96365; 96367; 97163; 97530; 99285

== ENCOUNTER → 2025-03-25 12:59 | Outpatient (REF) | payer MEDICARE, SELFPAY | LOC: HWRCS 12:59 | PROVIDERS: ATTENDING PHYSICIAN Internal Medicine Cardiovascular Disease | DX: I48.0 Paroxysmal atrial fibrillation (principal); I50.32 Chronic diastolic (congestive) heart failure | CPT/HCPCS: 93306 ==

== ENCOUNTER → 2025-03-26 13:29 | Outpatient (REF) | payer MEDICARE, SELFPAY | LOC: RAD 13:29 | PROVIDERS: ATTENDING PHYSICIAN Obstetrics & Gynecology; FAMILY PHYSICIAN Physician Assistant | DX: N83.291 Other ovarian cyst, right side (principal); R19.00 Intra-abdominal and pelvic swelling, mass and lump, unspecified site; C21.0 Malignant neoplasm of anus, unspecified | CPT/HCPCS: 76830; 76856 ==

== ENCOUNTER 2025-03-28 05:58 | Inpatient (IN) | payer MEDICARE, SELFPAY ==
[2025-03-26 11:27] LABS: Hematocrit 31.5 % (37.0-47.0); Hemoglobin 9.7 g/dL (12.0-16.0); Mean Corp Hgb Conc. 30.8 g/dL (33.0-37.0); Mean Corpuscular Volume 98.4 fL (81.0-99.0); Platelet Count 172 10^3/uL (130-400); Red Cell Dist. Width 14.8 % (11.5-14.5)
[2025-03-26 11:35] LABS: INR 1.42; PT 17.9 Sec (11.4-14.6)
[2025-03-26 11:36] LABS: APTT 36.7 Sec (23.4-35.0)
[2025-03-26 11:57] LABS: Glycohemoglobin (HgbA1c) 5.7 % (4.0-5.6)
[2025-03-26 12:11] LABS: ALT (SGPT) 13 U/L (0-35); AST (SGOT) 14 U/L (14-36); Albumin 3.2 g/dl (3.5-5.0); Alkaline Phosphatase 80 U/L (38-126); Blood Urea Nitrogen 22 mg/dl (7-17); Calcium 8.4 mg/dl (8.4-10.2); Carbon Dioxide 25 mmol/L (22-30); Chloride 111 mmol/L (98-107); Glucose 75 mg/dl (70-99); Potassium 4.5 mmol/L (3.5-5.1); Sodium 140 mmol/L (135-145); Total Protein 6.5 g/dl (6.3-8.2); eGFR 29.02
[2025-03-26 14:02] VITALS: BMI 35.9
--- NOTE | 2025-03-26 15:12 | PTCARENOTE ---
Patients 03/26 INR-1.47; Creat-1.8. Maame@ Dr. Lujan Office, Noy @Dr Benitez Office, Afsaneh @ Dr. Wagner office and Nisha @ Dr. Bay notified
[2025-03-27 21:13] LABS: CA 125 29.1 U/mL (0-35)
[2025-03-28] VITALS (18 sets, daily range): BP systolic 30–112; BP diastolic 48–66; BMI 35.9; BMI 36.0
[2025-03-28] MEDS: TYLENOL 1000 MG PO (06:46)
[2025-03-28] MEDS: NORMOSOL-R/PLASMALYTE-A 1000 IV ×2 (06:46→20:35)
[2025-03-28] MEDS: NEURONTIN 600 MG PO (06:46)
[2025-03-28 06:54] LABS: Glucose - Point of Care 60 mg/dl (70-99)
--- NOTE | 2025-03-28 07:15 | W.SUR.PREOP ---
Pre-Operative Surgical Note
-
I have examined this patient prior to the performance of the scheduled procedure.
The patient's condition is unchanged from the time of the current History and
Physical and the patient is able to undergo the scheduled procedure.
[2025-03-28 07:22] LABS: Glucose - Point of Care 99 mg/dl (70-99)
[2025-03-28] MEDS: HEPARIN 5000 UNITS SC (07:27)
--- NOTE | 2025-03-28 07:43 | PTCARENOTE ---
Patient's blood sugar found to be 60 @ 0650. Hypoglycemia protocol initiated, Anesthesia made aware, Dextrose 12.5 gm given via IV. Blood glucose rechecked at 0712 and found to be 99. Patient denies any complaints at this time.
[2025-03-28 09:38] LABS: Glucose - Point of Care 48 mg/dl (70-99)
[2025-03-28 09:38] LABS: Glucose - Point of Care 56 mg/dl (70-99)
[2025-03-28 10:05] LABS: Glucose - Point of Care 61 mg/dl (70-99)
[2025-03-28 10:27] LABS: Glucose - Point of Care 141 mg/dl (70-99)
[2025-03-28 12:36] LABS: Glucose - Point of Care 122 mg/dl (70-99)
[2025-03-28 13:44] LABS: B.E. - POC -2.4 mmol/L; Glucose - POC 129 mg/dl (70-99); HCO3 - POC 23 mmol/L (21-28); Hematocrit - POC 30 % PCV (37-47); Hemodilution- POC Yes; Hemoglobin Calculated - POC 10.3; Ionized Calcium - POC 1.17 mmol/L (1.15-1.33); Lactate - POC 0.61 mmol/L (0.36-0.75); O2 Saturation %Calculated-POC 99.6 % (94-98); PCO2 - POC 42 mmHg (35-48); PO2 - POC 197 mmHg (83-108); Potassium - POC 3.4 mmol/L (3.5-5.1); Sodium - POC 148 mmol/L (136-145); Specimen Type - POC Arterial; pH - POC 7.35 (7.35-7.45)
--- NOTE | 2025-03-28 14:58 | W.IMMPOSTOP ---
Surgical Immed Post Op Note
-
Primary Surgeon: Nat Fonseca DO
Assisting Surgeon: LORI Ahumada
Pre-op Diagnosis: Right adnexal cyst; endometrial fluid seen on ultrasound, anal squamous cell carcinoma
Post-op Diagnosis: same
Procedure Performed: Dilation and curettage, Robotic total laparoscopic hysterectomy, bilateral salpingo-oopherectomy.
Anesthesia Type: general ET
Specimen / Cultures: uterus, cervix bilateral tubes and ovaries.
Estimated Blood Loss: 5ml
Complications: Perforation of posterior vaginal wall noted. Repaired after completion of rectosimoidectomy by Dr Bradford.
Operative Findings: Normal appearing uterus and bilateral fallopian tubes. Atrophic bilateral ovaries, small right adnexal cyst.
Uterus sounded to 6cm. Cervix atrophic with stenotic os. Perforation of posterior vaginal wall noted after D&C had been completed.
Small approximate 5mm aperture noted. Opening had enlarged to several centimeters after placement of telecommunications support uterine manipulator and vaginal balloon.
Repair completed after rectosigmoidectomy performed.
Radiation effects noted on pelvic tissues- some scarring near cervix. Thin vaginal tissue.
Counts correct times 2.
Stable to recovery.
[2025-03-28 15:05] LABS: B.E. - POC -3.9 mmol/L; Glucose - POC 125 mg/dl (70-99); HCO3 - POC 22 mmol/L (21-28); Hematocrit - POC 29 % PCV (37-47); Hemodilution- POC Yes; Hemoglobin Calculated - POC 10.0; Ionized Calcium - POC 1.14 mmol/L (1.15-1.33); Lactate - POC 0.68 mmol/L (0.36-0.75); O2 Saturation %Calculated-POC 99.7 % (94-98); PCO2 - POC 44 mmHg (35-48); PO2 - POC 215 mmHg (83-108); Potassium - POC 3.6 mmol/L (3.5-5.1); Sodium - POC 149 mmol/L (136-145); Specimen Type - POC Arterial; pH - POC 7.31 (7.35-7.45)
[2025-03-28 16:34] LABS: B.E. - POC -4.1 mmol/L; Glucose - POC 186 mg/dl (70-99); HCO3 - POC 22 mmol/L (21-28); Hematocrit - POC 29 % PCV (37-47); Hemodilution- POC Yes; Hemoglobin Calculated - POC 10.0; Ionized Calcium - POC 1.08 mmol/L (1.15-1.33); Lactate - POC 1.17 mmol/L (0.36-0.75); O2 Saturation %Calculated-POC 99.6 % (94-98); PCO2 - POC 41 mmHg (35-48); PO2 - POC 200 mmHg (83-108); Potassium - POC 3.7 mmol/L (3.5-5.1); Sodium - POC 147 mmol/L (136-145); Specimen Type - POC Arterial; pH - POC 7.33 (7.35-7.45)
[2025-03-28 17:26] LABS: B.E. - POC -4.2 mmol/L; Glucose - POC 213 mg/dl (70-99); HCO3 - POC 22 mmol/L (21-28); Hematocrit - POC 29 % PCV (37-47); Hemodilution- POC Yes; Hemoglobin Calculated - POC 9.9; Ionized Calcium - POC 1.11 mmol/L (1.15-1.33); Lactate - POC 1.32 mmol/L (0.36-0.75); O2 Saturation %Calculated-POC 99.5 % (94-98); PCO2 - POC 44 mmHg (35-48); PO2 - POC 189 mmHg (83-108); Potassium - POC 3.7 mmol/L (3.5-5.1); Sodium - POC 147 mmol/L (136-145); Specimen Type - POC Arterial; pH - POC 7.31 (7.35-7.45)
--- NOTE | 2025-03-28 19:17 | OR.RPT ---
Operative Report
Operative Report
Date of surgery: 04/28/2025
Surgeon: EVANGELINA Chen MD
Preoperative diagnosis: Colorectal cancer, status post radiation
Postoperative diagnosis: Same
Procedure:
1. Vertical rectus abdominis myocutaneous flap reconstruction of the perineum
Anesthesia: General
Complications: None
EBL: 30 cc
Specimens: Per Dr. Bradford
Indication for procedure: Patient is a 74-year-old female with a history of a low-lying colorectal cancer. She had prior radiation. Plan was made for an APR with Dr. Bradford. Given concern for the resultant defect in the radiated tissues, she was
referred to me for consideration of perineal reconstruction. Discussion was had with the patient about the use of both the vertical rectus abdominis myocutaneous flap as well as gracilis flaps to provide healthy tissue to the radiated field. Plan
was made to use the right hemiabdomen as a donor site which would result in a vertical laparotomy scar. Ostomy was planned for the left abdomen. Risk the procedure reviewed at length including flap failure and necrosis, need for repeat procedure,
hematoma, seroma, infection, hernia. She understood these risk desire to proceed
Procedure in detail: Patient was identified preoperatively and the surgical site was confirmed to be the right hemiabdomen and perineum. Consents were confirmed and all questions were answered. Patient was taken back to the operating room placed
supine on table. Anesthesia was induced patient was prepped and draped in usual sterile fashion. Colorectal surgery began their portion of the case. When I reentered the case, the patient had robotic access sites on her abdomen and a large defect
of the perineum. Vertical rectus myocutaneous flap was drawn out from the midline extending out to the lateral growth perforators to the right. Incision was made with a 15 blade and Bovie electrocautery was used to dissect out the flap while
preserving the D IEP vessels to the skin and subcutaneous tissues. A fascia sparing approach was taken dissecting along the fascia to the medial row perforators. A lateral incision was made and then dissection continued to the lateral perforators.
A minimal amount of fascia was retained within the flap accordingly. The pedicle was identified and protected throughout the dissection. Of note, the pedicle itself was very calcified and readily palpable. The superior extent of the muscle was
released and the flap was taken off the posterior rectus fascia. Meticulous hemostasis was ensured and then the flap was transposed into the peritoneum ensuring a tension-free pedicle without kinking. The flap was then debulked to fit the
peritoneal defect leaving largely rectus and a small skin island flap. Meticulous hemostasis was ensured and a deep drain was placed in the pelvis above the flap. The flap was inset with a series of heavy Vicryl sutures followed by chromic
sutures. The abdominal wall was able to be closed primarily. A subcutaneous drain was placed prior to skin closure which was performed with a combination the INSORB stapler and 3-0 Monocryl sutures. Patient tolerated the procedure well and was
performed without complication. At the end the case the flap showed no signs of venous congestion with punctate bleeding from the skin edges. No concern for vascular compromise. All counts were correct. Colorectal surgery then resume the case to
mature the ostomy.
--- NOTE | 2025-03-28 19:17 | W.IMMPOSTOP ---
Surgical Immed Post Op Note
-
Primary Surgeon: EVANGELINA Chen
Assisting Surgeon:
Pre-op Diagnosis: Colorectal cancer, status post APR
Post-op Diagnosis: Same
Procedure Performed: Vertical rectus abdominis myocutaneous flap reconstruction of the perineum
Anesthesia Type: General
Specimen / Cultures: Per colorectal surgery
Estimated Blood Loss: 30 cc
Complications: None
Operative Findings: Well-perfused flap without evidence of venous congestion
--- NOTE | 2025-03-28 19:24 | W.IMMPOSTOP ---
Addendum entered and electronically signed by Gerry Bradford MD 04/03/25 19:10:
Of note, patient had a stage II left sided buttock pressure sore present preoperatively and postoperatively.
Addendum entered and electronically signed by Marco Senior MD 03/28/25 21:37:
Assisting surgeon: Marco Senior MD (performed perineal dissection)
Addendum entered and electronically signed by Gerry Bradford MD 03/28/25 20:00:
Patient extubated now and off pressors. Still plan ICU given her age, comorbidities and length of anesthetic.
Patient's daughter, Alysha, updated via phone conversation.
Original Note:
Surgical Immed Post Op Note
-
Primary Surgeon: Elodia Bradford MD
Assisting Surgeon: LORI Brown; Zachary Koo MD PGY-6
Pre-op Diagnosis: anal cancer
Post-op Diagnosis: same
Procedure Performed: 1) robotic abdominoperineal resection (APR) 2) repair vaginal defect (also had BIANKA/BSO by Dr. Fonseca and VRAM flap perineal reconstruction by Dr. Chen).
Anesthesia Type: general plus local
Specimen / Cultures: 1) frozen section of left posterior pelvis 2) rectosigmoid to include anus
Estimated Blood Loss: 1,000 cc
Complications: creation vaginal defect (repaired)
Operative Findings: left posterior anorectal ring ulcer
[address] One on R is subcutaneous. One on L is pelvic.
NGT placed.
Rogers, ureteral stents with ICG by Dr. Mccall of urology. R stent removed at end of case.
Of note, received 2 uPRBCs and 1 gram TXA during operation.
On pressors during operation--sending to ICU intubated.
Dr. hCen recommends IV ancef postoperatively.
[2025-03-28 19:59] LABS: Glucose - Point of Care 153 mg/dl (70-99)
[2025-03-28 20:38] LABS: Hematocrit 25.4 % (37.0-47.0); Hemoglobin 8.2 g/dL (12.0-16.0); Mean Corp Hgb Conc. 32.3 g/dL (33.0-37.0); Mean Corpuscular Volume 92.4 fL (81.0-99.0); Nucleated Red Blood Cells % 0 %; Platelet Count 115 10^3/uL (130-400); Red Cell Dist. Width 15.9 % (11.5-14.5)
[2025-03-28 21:02] LABS: Blood Urea Nitrogen 14 mg/dl (7-17); Calcium 7.8 mg/dl (8.4-10.2); Carbon Dioxide 21 mmol/L (22-30); Chloride 113 mmol/L (98-107); Estimated Creatinine Clearance 37 ml/min; Glucose 141 mg/dl (70-99); Magnesium 2.0 mg/dl (1.6-2.3); Potassium 3.9 mmol/L (3.5-5.1); Sodium 142 mmol/L (135-145); eGFR 42.88
[2025-03-28 21:27] LABS: Glucose - Point of Care 150 mg/dl (70-99)
[2025-03-28] MEDS: LR 1000 IV (21:40)
[2025-03-28] MEDS: OFIRMEV 100 IV (23:09)
[2025-03-28 23:25] LABS: Glucose - Point of Care 156 mg/dl (70-99)
[2025-03-28] MEDS: DILAUDID 0.25 MG IV (23:43)
[2025-03-29] VITALS (15 sets, daily range): BP systolic 72–114; BP diastolic 48–92; BMI 36.0; BMI 37.0
[2025-03-29] MEDS: NOVOLOG FLEXPEN-MODERATE RESISTANCE SC ×3 (00:12→13:12)
[2025-03-29] MEDS: NOVOLOG FLEXPEN-MODERATE RESISTANCE 1 UNITS SC ×3 (00:14→17:43)
[2025-03-29] MEDS: LR 1000 IV (00:16)
[2025-03-29 00:39] LABS: Hematocrit 23.8 % (37.0-47.0); Hemoglobin 7.8 g/dL (12.0-16.0)
[2025-03-29] MEDS: LEVOPHED 250 IV ×2 (02:55→15:44)
--- NOTE | 2025-03-29 03:11 | PTCARENOTE ---
Late note due to patient care. Patient arrived from OR, drowsy but arouses to voice and able to answer questions appropriately. Afib on monitor, Ayana in the right wrist, BP labile, 2L LR infused and 1 unit PRBCs after repeat H&H 7.8. Levophed
started, titrated per protocol. B/L LE +2 edema, with palpable pulses, TEDS and SCDs on. Right arm +3 edema from infiltration from OR. Elevated with ice pack applied. Midline incision with Aquacel dressing. B/L Abdominal PRETTY drains with
serosanguineous output. Puncture site on right abdomen closed with surgical glue. Sacrum to anus with approximated stitches, dressed with ABD pads. Stage 2 left buttock. MASD in groin and breast. Right breast has a bruise. Unable to obtain temp.
Oral temp would not registered, anus is surgically closed, and Rogers is not temp sensing. Temporal temp 96.0, bare hugger applied. Turns as tolerated. Pain is controlled as of now.
[2025-03-29] MEDS: OFIRMEV 100 IV ×3 (05:17→17:43)
[2025-03-29 05:25] LABS: INR 1.64; PT 19.6 Sec (11.4-14.6)
[2025-03-29 05:26] LABS: APTT 33.0 Sec (23.4-35.0); Hematocrit 30.4 % (37.0-47.0); Hemoglobin 10.3 g/dL (12.0-16.0); Mean Corp Hgb Conc. 33.9 g/dL (33.0-37.0); Mean Corpuscular Volume 91.3 fL (81.0-99.0); Nucleated Red Blood Cells % 0 %; Platelet Count 165 10^3/uL (130-400); Red Cell Dist. Width 16.2 % (11.5-14.5)
[2025-03-29 05:29] LABS: Glucose - Point of Care 167 mg/dl (70-99)
[2025-03-29 05:37] LABS: Albumin 2.6 g/dl (3.5-5.0); Blood Urea Nitrogen 17 mg/dl (7-17); Calcium 8.3 mg/dl (8.4-10.2); Carbon Dioxide 20 mmol/L (22-30); Chloride 115 mmol/L (98-107); Estimated Creatinine Clearance 37 ml/min; Glucose 158 mg/dl (70-99); Magnesium 2.0 mg/dl (1.6-2.3); Potassium 4.7 mmol/L (3.5-5.1); Sodium 143 mmol/L (135-145); eGFR 42.88
[2025-03-29] MEDS: FLEXBUMIN 100 IV (06:26)
--- NOTE | 2025-03-29 06:29 | CON.HOSP ---
Consultation
-
Date/Time Consultation Requested: 03/28/25 7:40 PM
Date/Time Consultation Performed: 03/29/25 6:00 AM
Requesting Provider: Dr. Bradford
Performing Provider: Dr. Manuel
Reason for Consultation: Medical management
Family Physician
-
Family Physician: Kayla Adame PA-C
Chief Complaint
-
Anal Cancer
History of Present Illness
Patient is a 74y F with PMH significant for A-Fib, CHF and anal cancer with recent recurrence who presented to on 03/28 for scheduled surgery for resection of recurrent malignancy. Patient underwent ureteroscopy with bilateral ureteral stents,
robotic APR, BIANKA / BSO, repair of vaginal defect and perineal reconstruction / flap on 03/28/25. She received 2 units PRBC and 1g TXA during the surgeries. Patient was successfully extubated post-op. She was on pressors post-op which were able to
be weaned, but have since been restarted at low dose to maintain adequate perfusion.
Medicine service was consulted for management of patient's multiple medical issues.
Seen and examined this AM in the ICU. Patient denies any significant abdominal pain. No chest pain or dyspnea. She complains primarily of dry mouth and some sore throat related to NG tube.
Medical History
Past Medical History
Past Medical History: Reports Other
Additional Past Medical History:
Squamous Cell Cancer of the Anus
Persistent Atrial Fibrillation
Chronic HFpEF
ASCVD / CVA
Hypertension
DM-II
Hypothyroidism
Obesity
Additional Past Surgical History:
Robotic APR, BIANKA / BSO, Vaginal Defect Repair, Perineal Reconstruction / Flap (03/28/25)
Tubal Ligation
PPM Placement
Port Placement
Anal Biopsy
Social History
Tobacco: Non-smoker
Alcohol: Occasional
Drug: None
Family History
Family History: Reviewed & Not Pertinent
Allergies / Home Medications
Allergies reflects when Allergies were last updated in [facility].
Home Medications with original date entered in [facility]
Allergy/Medication List:
Allergies
Allergy/AdvReac Type Severity Reaction Status Date / Time
sulfamethoxazole (From Allergy hypotension Verified 03/28/25 06:35
Bactrim)
trimethoprim (From Bactrim) Allergy hypotension Verified 03/28/25 06:35
Home Medications
cholecalciferol (vitamin D3) 25 mcg (1,000 unit) tablet 1,000 units PO DAILY Supplement 07/31/21
tamsulosin 0.4 mg capsule 0.4 mg PO DAILY Urinary issue 07/31/21
atorvastatin 40 mg tablet 40 mg PO HS High cholesterol 09/28/22
potassium chloride 20 mEq tablet,extended release 20 meq PO HS Electrolyte Repletion 12/02/22
cyanocobalamin (vitamin B-12) 1,000 mcg tablet 1,000 mcg PO DAILY #30 tabs 12/04/23
ferrous sulfate 325 mg (65 mg iron) tablet (iron) 325 mg PO DAILY Supplement 12/04/24
folic acid 1 mg tablet 1 mg PO DAILY Supplement 12/04/24
insulin degludec 100 unit/mL (3 mL) subcutaneous pen (Tresiba FlexTouch U-100 insulin) 8 unit SQ HS Diabetes 12/04/24
furosemide 40 mg tablet 40 mg PO TUTH Fluid Retention/Swelling 02/18/25
levothyroxine 150 mcg tablet 150 mcg PO DAILY Thyroid 02/19/25
apixaban 5 mg tablet (Eliquis) 5 mg PO BID #60 tabs 02/24/25
glipizide 5 mg tablet 2.5 mg (1/2 x 5 mg) PO DAILY #0 tabs 02/24/25
metoprolol succinate 25 mg tablet,extended release 24 hr (Toprol XL) 25 mg PO BID #30 tabs 02/24/25
metronidazole 500 mg tablet 500 mg PO .1400.1500.2200 03/26/25
neomycin 500 mg tablet 1,000 mg PO .1400.1500.0 03/26/25
sodium sul 1.479 gram-potas ch 0.188 gram-magnes sul 0.225 gram tablet (Sutab) 24 tab PO PER PKG DIR 03/26/25
amoxicillin 500 mg capsule 500 mg PO BID 03/28/25
Review of Systems
-
History Source: Patient
A 12 point Review of Systems was completed except as noted: Yes
Constitutional: Reports Fatigue; Denies Fever or Chills
EENT: Reports Sore Throat
Respiratory: Denies Cough or Trouble Breathing
Cardiac: Denies Chest Pain
Abdomen/GI: Denies Abdominal Pain, Nausea or Vomiting
: Denies Flank Pain
Neurological: Denies Dizzy or Headache
Physical Exam
Vital Signs
Vital Signs
Temp Pulse Resp BP Pulse Ox
97.0 F 89 17 87/60 99
03/29/25 04:21 03/29/25 06:15 03/29/25 06:15 03/29/25 06:00 03/29/25 06:15
Physical Exam
General: Other (Pale appearing 74y F in no acute distress. Resting comfortably.)
HEENT: Other (NG in place. Dry MM. Neck supple.)
Respiratory: Other (Decreased at base. Few scattered rales.)
Cardiac: S1/S2 and Irregular Rhythm; Negative Murmur
GI: Other (Midline incision dressing in place. RUQ PRETTY with small amount sanguinous drainage. Midline PRETTY with large amount of sanguinous drainage. Perineal reconstruction incision(s).)
Genito-urinary: Other (Rogers in place draining light yellow urine.)
Musculoskeletal: Other (RUE 3-4+ edema (blood transfusion infiltration))
Neuro: AO x 3
Laboratory Results
-
PT 19.6 Sec (11.4-14.6) H 03/29/25 04:50
INR 1.64 03/29/25 04:50
APTT 33.0 Sec (23.4-35.0) 03/29/25 04:50
Total Bilirubin 0.8 mg/dl (0.2-1.3) 03/26/25 10:51
AST 14 U/L (14-36) 03/26/25 10:51
ALT 13 U/L (0-35) 03/26/25 10:51
Alkaline Phosphatase 80 U/L (38-126) 03/26/25 10:51
Impression / Plan
-
A/R: Patient is a 74y F with PMH significant for A-Fib, CHF and anal cancer with recent recurrence who presented to on 03/28 to undergo scheduled surgery / resection of malignancy. Medicine service consulted post-op for management of medical
issues.
Anal Cancer
POD #1 s/p Robotic APR, BIANKA/BSO, Repair of Vaginal Defect, Perineal Reconstruction / Flap
- Admitted to ICU post-op.
- Continue post-op care per surgical service(s).
- Monitor bloody appearing PRETTY drain output.
- Pain control, DVT prophylaxis, etc per Surgery.
- IV Ancef per Plastics recommendations.
Acute Blood Loss Anemia
Hypotension / Hypovolemic Shock
- Received 3 units PRBCs total thus far (and 1 g TXA), several liters IVFs and currently on maintenance Normosol.
- Also received dose of IV albumin overnight.
- Currently on low-dose Levophed for BP support - wean as able.
- Follow H&H and transfuse additional blood products if needed (Hgb this AM much improved at 10.3).
- Bolus fluids / albumin / etc if needed to maintain perfusion.
Hypothermia
- Mild hypothermia post-op. Likely combination of anesthesia, blood loss, etc.
- Angie hugger in place at present.
Chronic HFpEF
- Hypotensive at present as noted above.
- Suspect that patient will require IV diuresis at some point given volume needed for blood product replacement / hypotension / etc.
- Continue to follow accurate I/Os, daily weights, etc.
- IV Lasix PRN for worsening edema, increased weight, etc - as BP allows.
- Patient on only twice weekly Lasix as an outpatient.
Persistent Atrial Fibrillation
- Stable. Amiodarone held pre-op.
- Lopressor IV at low dose with holding parameters for BP.
- Eliquis on hold for surgery, blood loss, etc.
DM-II
- Stable. Hold usual oral agents.
- Follow glucose and cover with SSI as needed.
- A1C was 5.7 on 03/26/25.
CKD III
- Stable. SCr is actually improved from prior baseline (1.3 compared to 1.6).
- Follow for changes with fluid shifts / BP changes / etc.
- Avoid nephrotoxic agents / hypotension / etc.
Hypothyroidism
- TFTs normal in February of this year.
- Resume usual T4 supplementation when OK for PO meds.
- Repeat TFTs given hypothermia.
- Consider IV supplementation if patient remains NPO x several days.
DVT Prophylaxis: SCDs
Code Status: Full
Thank you for this consultation. Hospitalist service will follow along with you.
[2025-03-29 06:54] LABS: B.E. - POC -4.9 mmol/L; Glucose - POC 201 mg/dl (70-99); HCO3 - POC 20 mmol/L (21-28); Hematocrit - POC 23 % PCV (37-47); Hemodilution- POC No; Hemoglobin Calculated - POC 7.8; Ionized Calcium - POC 1.04 mmol/L (1.15-1.33); Lactate - POC 2.18 mmol/L (0.36-0.75); O2 Saturation %Calculated-POC 99.6 % (94-98); PCO2 - POC 36 mmHg (35-48); PO2 - POC 190 mmHg (83-108); Potassium - POC 3.0 mmol/L (3.5-5.1); Sodium - POC 146 mmol/L (136-145); Specimen Type - POC Arterial; pH - POC 7.35 (7.35-7.45)
--- NOTE | 2025-03-29 07:17 | CON.INTV ---
Consultation
Consultation Request
Date/Time Consultation Requested: 03/29
Date/Time Consultation Performed: 03/29
Reason for Consultation: Critical care
Medical History
-
History of Present Illness:
History obtained from reviewing outpatient and inpatient records, and obtaining history from the patient. Patient is a pleasant 74-year-old female with history of anal squamous cell carcinoma status post chemoradiation, with recent MRI imaging
01/29 with tumor in the anorectal junction area 2.6 cm. There was also a 2 cm septated cyst in the right ovary. Of note, patient had recent hospital stay, discharged 02/24/2025, presented with septic shock, pneumonia, hematochezia secondary to
bleeding from rectal mass. Patient was restarted on Eliquis therapy after management of bleeding, recommended to follow-up with colorectal surgery for planned resection 03/13/2025 and follow-up with oncology at [facility]. Patient is now status post
robotic abdominoperineal resection, BIANKA/BSO, VRAM flap perineal reconstruction. She was extubated but given 1 L blood loss, hypotension, requirement of pressors, she was admitted to ICU for further management
Presently she is on 4 mcg of norepinephrine. Otherwise she appears to be comfortable. She is complaining of abdominal discomfort. She also desaturates when taken off oxygen and lying flat.
PRETTY drains in place, with serosanguineous drainage, colostomy intact
.
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
history of heart failure, ESBL UTI, GERD/gastritis, history of lower GI bleed on anticoagulation. History of pacemaker 2022, tubal ligation
Past Medical History
Past Medical History: None (See above)
Past Surgical History: None (See above)
Social History
Tobacco: Non-smoker
Alcohol: Occasional
Drug: None
Living: With Family (Takes care of her 10-year-old grandchild. Under significant stress at home. Children have issues with the law/drug abuse, lives with son and daughter as well)
Employment: Retired ([employer])
Family History
Family History: Other (Both mother and father , history of diabetes. Father had a stroke age 57, mother had coronary disease bypass surgery age 68. 1 son with drug abuse issues, she does not keep in touch with)
Allergies / Home Medications
Allergies
Allergy/AdvReac Type Severity Reaction Status Date / Time
sulfamethoxazole (From Allergy hypotension Verified 03/28/25 06:35
Bactrim)
trimethoprim (From Bactrim) Allergy hypotension Verified 03/28/25 06:35
Home Medications
�Medication �Instructions �Recorded �Confirmed �Last Taken �Type
cholecalciferol (vitamin D3) 25 1,000 units PO DAILY Supplement 07/31/21 03/28/25 03/25/25 History
mcg (1,000 unit) tablet
tamsulosin 0.4 mg capsule 0.4 mg PO DAILY Urinary issue 07/31/21 03/28/25 03/27/25 08:00 History
atorvastatin 40 mg tablet 40 mg PO HS High cholesterol 09/28/22 03/28/25 03/27/25 22:00 History
potassium chloride 20 mEq 20 meq PO HS Electrolyte Repletion 12/02/22 03/28/25 03/25/25 History
tablet,extended release
cyanocobalamin (vitamin B-12) 1,000 mcg PO DAILY #30 tabs 12/04/23 03/28/25 03/25/25 Rx
1,000 mcg tablet
ferrous sulfate 325 mg (65 mg 325 mg PO DAILY Supplement 12/04/24 03/28/25 03/25/25 History
iron) tablet (iron)
folic acid 1 mg tablet 1 mg PO DAILY Supplement 12/04/24 03/28/25 03/25/25 History
insulin degludec 100 unit/mL (3 8 unit SQ HS Diabetes 12/04/24 03/28/25 03/27/25 22:00 History
mL) subcutaneous pen (Tresiba
FlexTouch U-100 insulin)
furosemide 40 mg tablet 40 mg PO TUTH Fluid 02/18/25 03/28/25 03/25/25 History
Retention/Swelling
levothyroxine 150 mcg tablet 150 mcg PO DAILY Thyroid 02/19/25 03/28/25 03/27/25 06:00 History
apixaban 5 mg tablet (Eliquis) 5 mg PO BID #60 tabs 02/24/25 03/28/25 03/23/25 Rx
glipizide 5 mg tablet 2.5 mg (1/2 x 5 mg) PO DAILY #0 02/24/25 03/28/25 2 Weeks Ago Rx
tabs ~03/14/25
metoprolol succinate 25 mg 25 mg PO BID #30 tabs 02/24/25 03/28/25 03/28/25 04:00 Rx
tablet,extended release 24 hr
(Toprol XL)
metronidazole 500 mg tablet 500 mg PO .1400.1500.2200 03/26/25 03/28/25 03/27/25 22:00 History
neomycin 500 mg tablet 1,000 mg PO .1400.1500.2200 03/26/25 03/28/25 03/27/25 22:00 History
sodium sul 1.479 gram-potas ch 24 tab PO PER PKG DIR 03/26/25 03/28/25 03/28/25 00:30 History
0.188 gram-magnes sul 0.225 gram
tablet (Sutab)
amoxicillin 500 mg capsule 500 mg PO BID 03/28/25 03/28/25 03/27/25 10:00 History
Review of Systems
-
All other systems: Negative unless noted
Vitals / Labs / Diagnostic Testing
Vital Signs
Temp Pulse Resp BP Pulse Ox
97.0 F 89 17 87/60 99
03/29/25 04:21 03/29/25 06:15 03/29/25 06:15 03/29/25 06:00 03/29/25 06:15
Laboratory Results
03/29/25
04:50
PT 19.6 H
INR 1.64
APTT 33.0
Diagnostic Testing:
Physical Exam
-
HEENT: Normocephalic, Anicteric, Other (Edentulous) and Other (Right anterior chest port)
Cardiovascular: S1/S2, Regular Rhythm, Murmur (n), Rub (n) and Peripheral Edema (tr, sequentials in place)
Respiratory: Wheeze (n), Rales (n), Rhonchi (n) and Non-Labored Respirations
GI: Soft, Non Distended, Tender (Mild) and Other (Ostomy, PRETTY drains)
Neurology: Awake, Alert, Oriented and No Motor Deficits (Moves all extremities)
Skin: Other (No clubbing, no cyanosis) and Other (Mild pallor)
General: Comfortable
Assessment
-
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
status post robotic abdominoperineal resection, BIANKA/BSO, VRAM flap perineal reconstruction, 03/28. Patient admitted to ICU postoperatively given significant blood loss, hypotension requiring pressors
S/p robotic abdominoperineal resection, BIANKA/BSO, repair of vaginal defect, VRAM flap perineal reconstruction, 03/28/25
Complicated by blood loss, 1 L per OR records
Hypotension requiring pressors, suspect secondary to prolonged anesthesia, bleeding
Received 2 units of blood, 1 g TXA intraoperatively
Postoperative anemia, hemoglobin 7.8
Acute blood loss anemia
Improved to 10.3 post-transfusion
Recently hospitalized and discharged 02/24/2025
rectal bleeding, septic shock, left lower lobe pneumonia/UTI
Conditions present prior to admission
History of CKD stage IIIb
Diabetes
Anal squamous cell cancer, stage III
Diagnosed November 2023
s/p chemotherapy/radiation at [facility]
Recurrence of disease per pelvic MRI January 2025
[facility]
Atrial fibrillation on Eliquis
Now off amiodarone Per cardiology, remains on beta-joseph (Shadi)
Moderate pulm hypertension, echo March 2025, stable compared to prior echo
With dilated RV, normal function, PA pressure 66
Normal EF
Moderate mitral stenosis
History of stroke 1994 and again 2022 per patient
Suspected sleep apnea
Plan/recommendations
Patient with extremely complex medical history.
Presently critically ill but stable
Remains on norepinephrine, received 3 units of blood
PRETTY drain with serosanguineous drainage, no torsten blood
Patient with also complex cardiac history, valvular disease, pulm hypertension, difficult to control atrial fibrillation, now on beta-joseph alone.
She has been on Eliquis as an outpatient
Recent hospital stay in February with rectal bleeding noted, controlled and Eliquis resumed
She does have a [employer] pacemaker
Moving forward
Continue with supportive care
Follow hemoglobin, transfuse as needed
Recent echocardiogram noted, moderate to severe pulm hypertension, dilated RV with normal function
Follow-up fluid status
Patient also has history of ESBL UTI
Recent hospital stay February with questionable UTI
Follow clinically
Patient also underwent BIANKA/BSO
Being followed by gynecology
Continue IV fluids
Remains on Ancef
Follow blood sugars
DVT prophylaxis: Sequential teds
GI prophylaxis: Protonix
Full code
TCCT 35 min
[2025-03-29] MEDS: NSS (PRESERVATIVE FREE) 10 ML IV (07:38)
[2025-03-29] MEDS: NORMOSOL-R/PLASMALYTE-A 1000 IV ×2 (07:38→17:43)
[2025-03-29] MEDS: PROTONIX IV 40 MG IV (07:38)
--- NOTE | 2025-03-29 07:46 | PTCARENOTE ---
Assumed care of pt. approx 0700.
Mentating appropriately, Pupils =/R 3mm, Focally intact. Weak but can move all extremities without reported decrease in sensation.
NSR w. Ectopy noted PVCs, normotensive via arterial line --> correlating within 10 points of NIBP. Normothermic --> Warming blanket removed.
RA trial --> sp02 100% --> Vesicular Bilaterally, RR 16-25.
Urine OP 50-100 ml/hr, euglycemic, brewer intact.
DRAINS
*PRETTY A intact draining 30-40 ml/hr
*PRETTY B intact very minimal OP
*Stoma red/intact no OP
Incision site intact.
Remains on 4mcg of Norepi see flow sheets for details.
[2025-03-29] MEDS: ANCEF 5 IV ×2 (07:56→16:40)
--- NOTE | 2025-03-29 08:16 | W.PN.HOSP.TC ---
Today's Communication/Plan
-
Continue management in the ICU
Continue with Levophed
NPO
Assessment / Plan
Assessment / Plan
Impression:
Patient is a 74y F with PMH significant for A-Fib, CHF and anal cancer with recent recurrence who presented to on 03/28 for scheduled surgery for resection of recurrent malignancy. Patient underwent ureteroscopy with bilateral ureteral stents,
robotic APR, BIANKA / BSO, repair of vaginal defect and perineal reconstruction / flap on 03/28/25. She received 2 units PRBC and 1g TXA during the surgeries. Patient was successfully extubated post-op. She was on pressors post-op which were able to
be weaned, but have since been restarted at low dose to maintain adequate perfusion.
Medicine service was consulted for management of patient's multiple medical issues.
Assessment/plan:
Anal Cancer
POD #1 s/p Robotic APR, BIANKA/BSO, Repair of Vaginal Defect, Perineal Reconstruction / Flap
- Admitted to ICU post-op.
- Continue post-op care per surgical service(s).
- Monitor bloody appearing PRETTY drain output.
- Pain control, DVT prophylaxis, etc per Surgery.
- IV Ancef per Plastics recommendations.
Acute Blood Loss Anemia
Hypotension / Hypovolemic Shock
- Received 3 units PRBCs total thus far (and 1 g TXA), several liters IVFs and currently on maintenance Normosol.
- Also received dose of IV albumin overnight.
- Currently on low-dose Levophed for BP support - wean as able.
- Follow H&H and transfuse additional blood products if needed (Hgb this AM much improved at 10.3).
- Bolus fluids / albumin / etc if needed to maintain perfusion.
Hypothermia
- Mild hypothermia post-op. Likely combination of anesthesia, blood loss, etc.
- resolved
Chronic HFpEF
- Hypotensive at present as noted above.
- Suspect that patient will require IV diuresis at some point given volume needed for blood product replacement / hypotension / etc.
- Continue to follow accurate I/Os, daily weights, etc.
- IV Lasix PRN for worsening edema, increased weight, etc - as BP allows.
- Patient on only twice weekly Lasix as an outpatient.
Persistent Atrial Fibrillation
- Stable. Amiodarone held pre-op.
- Lopressor IV at low dose with holding parameters for BP.
- Eliquis on hold for surgery, blood loss, etc.
DM-II
- Stable. Hold usual oral agents.
- Follow glucose and cover with SSI as needed.
- A1C was 5.7 on 03/26/25.
CKD III
- Stable. SCr is actually improved from prior baseline (1.3 compared to 1.6).
- Follow for changes with fluid shifts / BP changes / etc.
- Avoid nephrotoxic agents / hypotension / etc.
Hypothyroidism
- TFTs normal in February of this year.
- Resume usual T4 supplementation when OK for PO meds.
- Repeat TFTs given hypothermia.
- Consider IV supplementation if patient remains NPO x several days.
DVT Prophylaxis: SCDs
CODE STATUS: Full code
Diet: NPO
Disposition: Continue management in the ICU
Continue with Levophed
NPO
Total time spent on today's encounter was 74 minutes which included time spent in counseling the patient/family regarding diagnosis and treatment plan as listed above, goals of care, and symptom management. Case was discussed with nursing staff,
specialists, and care coordinators/case management. All labs and imaging personally reviewed by me. Remainder the time spent in detailed review of previous records, lab data, imaging, and other medical provider documentation.
Anticipated Discharge: > 48 hours
Subjective/Interval History
-
Date of Service: March 29, 2025
Patient cynthia in ICU, NG tube, blood chest pain, admit shortness of breath with turning.
Objective Data
-
Labs:
Laboratory Results
03/28/25 03/29/25 03/29/25
20:19 00:33 04:50
WBC 8.5 16.3 H
Hgb 8.2 L 7.8 L 10.3 L D
Hct 25.4 L 23.8 L 30.4 L
Plt Count 115 L D 165 D
PT 19.6 H
INR 1.64
APTT 33.0
Sodium 142 143
Potassium 3.9 4.7
Chloride 113 H 115 H
Carbon Dioxide 21 L 20 L
BUN 14 17
Creatinine 1.3 H 1.3 H
Glucose 141 H 158 H
Calcium 7.8 L 8.3 L
03/29/25
12:00
WBC
Hgb Pending
Hct Pending
Plt Count
PT
INR
APTT
Sodium Pending
Potassium Pending
Chloride Pending
Carbon Dioxide Pending
BUN Pending
Creatinine Pending
Glucose Pending
Calcium Pending
Vital Signs:
Vital Signs
Temp Pulse Resp BP Pulse Ox
98.1 F 79 19 107/71 100
03/29/25 07:00 03/29/25 07:45 03/29/25 07:45 03/29/25 07:00 03/29/25 07:46
I&O
03/28/25 03/29/25 03/30/25
06:59 06:59 06:59
Intake Total 3400 / 3595 297.5 / 297.5
Output Total 3220 / 3270 140 / 140
Balance 180 / 325 157.5 / 157.5
Physical Exam
-
General: Well Developed, Well Nourished and Obese
HEENT: Normocephalic, Atraumatic and Other (NG tube)
Respiratory: Rales and Non Labored Respirations
Cardiac: S1/S2 and Irregular Rhythm
Breast: Deferred by me
GI: Tender and Other (Drain at surgical site)
Genito-urinary: No Costovertebral Tender
Musculoskeletal: No Clubbing and No Cyanosis
Skin: Warm
Neuro: Awake, Alert, Oriented and AO x 3
Psych: Calm
Data Reviewed
-
Diagnostic Radiology: Image personally visualized and interpreted and Report Reviewed by me
CT Scan: Image personally visualized and interpreted and Report Reviewed by me
Ultrasound: Image personally visualized and interpreted and Report Reviewed by me
MRI: Image personally visualized and interpreted and Report Reviewed by me
Medical Tests (Nuc Med, Echo etc): Image personally visualized and interpreted and Report Reviewed by me
Labs: Labs Reviewed by me
Old Records: Reviewed
--- NOTE | 2025-03-29 08:26 | W.PN.PLAS ---
Progress Note
Subjective Data
No issues overnight
Objective Data
Vital Signs
Temp Pulse Resp BP Pulse Ox
98.1 F 79 19 107/71 100
03/29/25 07:00 03/29/25 07:45 03/29/25 07:45 03/29/25 07:00 03/29/25 07:46
Intake and Output
03/28/25 03/29/25 03/30/25
06:59 06:59 06:59
Intake Total 3400 / 3595 297.5 / 297.5
Output Total 3220 / 3270 140 / 140
Balance 180 / 325 157.5 / 157.5
Intake:
IV fluids (Total) 3020 / 3115 197.5 / 197.5
LR BOLUS 2000 / 1999
Norepinephrine 37.5 / 37.5
Normosol-R/Plasmalyte-A 1,000 720 / 800 160 / 160
ml @ 80 mls/hr IV .[id number] CARLOS
Rx#:[id number]
ns 300 / 300
IV piggybacks 100 / 100
Amount instilled into GI Tube ( 30 / 30 0 / 0
Total)
[place] Sump 30 / 30 0 / 0
Blood Products 100 / 100
Albumin 100 / 100
Blood Product Amount Infused ( 250 / 250
mL)
Packed Rbc Leukoreduced Unit 250 / 250
[id number]
Output:
Drain Output (Total) 495 / 495 40 / 40
Left Lower Abdomen Pierce- 440 / 440 40 / 40
Hoover
Right Lower Abdomen Pierce- 55 / 55
Hoover B
Gastrointestinal tube output ( 0 / 0
Total)
[place] Sump 0 / 0
Urine, Rogers 4345 / 2772 100 / 100
Physical exam:
No acute distress
No increased work of breathing
Alert and interactive
Abdominal incision dressing in place, PRETTY drain serosanguineous with appropriate output
Peritoneal flap warm evidence of good perfusion, no evidence of venous congestion,
Appropriate cap refill
Some skin edge demarcation consistent with ecchymoses
Assessment / Plan
Status post myocutaneous flap reconstruction after APR
No prolonged direct sitting
Pressure offloading to the flap
--- NOTE | 2025-03-29 08:48 | W.PN.OBG.DWH ---
Today's Communication / Plan
-
Continue postop mgmt as per colorectal service.
Assessment/Plan
-
POD#1 s/p dilation and curettage, followed by [facility] BSO performed due to hx right adnexal cyst, endometrial fluid on US, questionable postmenopausal bleeding reported today and for improved visualization for colorectal procedure. Incidental
vaginal perforation repaired. Underwent robotic rectosigmoidectomy to anus performed by colorectal surgery (Dr. Bradford and Dr. Senior) and had VRAM flap by
Dr. Chen.
I reviewed operative findings with Indu and reviewed procedures I performed. She expressed relief that uterus, cervix, tubes and ovaries were removed at time of this surgery.
Continue postop mgmt as per CRS service.
Subjective Data
-
POD#1
Indu is awake, alert.
Denies any significant pain.
She is happy surgery is completed.
No CP, SOB.
Objective Data
-
Vital Signs
Temp Pulse Resp BP Pulse Ox
98.1 F 79 19 107/71 100
03/29/25 07:00 03/29/25 07:45 03/29/25 07:45 03/29/25 07:00 03/29/25 07:46
VSS AFeb
Awake and alert
Cor: regular rate
Abd: soft, hypoactive BS
Ext:SCDs in place
--- NOTE | 2025-03-29 10:20 | CM ---
CM reviewed chart and met with pt bedside in ICU. Lives with her son and daughter, 2 story home, 2 MOON, independent in ADLs, personal care and ambulation at baseline, has first floor full BA, sleeps in recliner on first floor. Has RW, WC and cane.
Abulates with RW.
Current with [facility]
no hx SNF
PCP: Kayla Adame
Pharmacy: [facility] Mehran Weber
Anticipate home with [facility], CM will continue to follow for any discharge planning needs.
[2025-03-29] MEDS: LR 500 IV ×2 (12:19→17:42)
[2025-03-29 12:24] LABS: Hematocrit 27.8 % (37.0-47.0); Hemoglobin 9.3 g/dL (12.0-16.0)
--- NOTE | 2025-03-29 12:26 | PTCARENOTE ---
unable to down titrate levo due to hypotension --> payment manager notified --> 500 LR bolus given.
No new changes in assessment.
[2025-03-29 13:07] LABS: Blood Urea Nitrogen 17 mg/dl (7-17); Calcium 8.2 mg/dl (8.4-10.2); Carbon Dioxide 20 mmol/L (22-30); Chloride 113 mmol/L (98-107); Estimated Creatinine Clearance 35 ml/min; Glucose 142 mg/dl (70-99); Potassium 4.8 mmol/L (3.5-5.1); Sodium 143 mmol/L (135-145); eGFR 39.23
--- NOTE | 2025-03-29 14:16 | W.PN.GS2 ---
Addendum entered and electronically signed by Prosper Vasques MD 03/29/25 14:50:
I saw and examined the patient.
The HUMAN SERVICES WORKER's note was reviewed and I agree with the note.
Comment: Pain controlled. Excellent UOP. 4mcg levo back on after MAP dropped when levo stopped. pelvic PRETTY high output, clear ss fluid. Wean pressors as able. NGT/IVF. Monitor for ROBF
Original Note:
Today's Communication / Plan
-
NPO/NGT
Assessment / Plan
-
74 yo female s/p adjunctive chemo now presenting for operative management of anal cancer
POD #1 RAL APR (CRS), vaginal defect repair with BIANKA/BSO (STOCK BLENDER) and VRAM flap (Plastics)
Acute blood loss anemia S/P TXA and 2 units prbcs in OR with 2 additional units PRBC's post op
H/H drifting down s/p transfusion
Reactive leukocytosis present
Afebrile, on pressors but being weaned, HR wnl
Extubated post operatively
NGT with low outputs, await bowel recovery
Good urine output via Brewer, both stents have now been removed
Plan:
Continue NPO with NGT in place to suction and await return of bowel function
C/W IVF
Stoma nurse consulted for soma care
C/W SQ and Pelvic PRETTY's
IS while awake
Follow PRETTY outputs
Follow labs
C/W brewer
OR path pending
Scheduled tylneol IV and prn narcotics, hold NSAIDs given anemia
PPI for GI ppx
OOB as able
Hold chemical VTE ppx until h/h stable, SCDs while in bed
Appreciate medicine team following for medical management
Subjective Data
-
Date of Service: March 29, 2025
Pt seen and examined at bedside with Dr. Vasques. Denies n/v. Local irritation from NGT. Pain well managed.
Objective Data
-
Intake and Output
03/28/25 03/29/25 03/30/25
06:59 06:59 06:59
Intake Total 3400 / 3595 1517.5 / 1517.5
Output Total 3220 / 3270 480 / 480
Balance 180 / 325 1037.5 / 1037.5
Intake:
IV fluids (Total) 3020 / 3115 767.5 / 767.5
LR BOLUS 1999 / 1999
Norepinephrine 127.5 / 127.5
Normosol-R/Plasmalyte-A 1,000 720 / 800 640 / 640
ml @ 80 mls/hr IV .[id number] CARLOS
Rx#:[id number]
ns 300 / 300
IV piggybacks 100 / 100 600 / 600
Amount instilled into Drain ( 50 / 50
Total)
Left Lower Abdomen Pierce- 40 / 40
Hoover
Right Lower Abdomen Pierce- 10 / 10
Hoover B
Amount instilled into GI Tube ( 30 / 30 0 / 0
Total)
[place] Sump 30 / 30 0 / 0
Blood Products 100 / 100
Albumin 100 / 100
Blood Product Amount Infused ( 250 / 250
mL)
Packed Rbc Leukoreduced Unit 250 / 250
[id number]
Output:
Drain Output (Total) 495 / 495 120 / 120
Left Lower Abdomen Pierce- 440 / 440 120 / 120
Hoover
Right Lower Abdomen Pierce- 55 / 55
Hoover B
Gastrointestinal tube output ( 0 / 0
Total)
[place] Sump 0 / 0
Urine, Brewer 6322 / 7009 360 / 360
Vital Signs
Temp Pulse Resp BP Pulse Ox
98.5 F 79 18 106/92 100
03/29/25 11:30 03/29/25 13:45 03/29/25 13:45 03/29/25 08:00 03/29/25 13:45
Lab Results
03/29/25 12:12
03/29/25 12:12
Calcium 8.2 mg/dl (8.4-10.2) L 03/29/25 12:12
Phosphorus 4.4 mg/dl (2.5-4.5) 03/29/25 04:50
Magnesium 2.0 mg/dl (1.6-2.3) 03/29/25 04:50
Total Bilirubin 0.8 mg/dl (0.2-1.3) 03/26/25 10:51
AST 14 U/L (14-36) 03/26/25 10:51
ALT 13 U/L (0-35) 03/26/25 10:51
Alkaline Phosphatase 80 U/L (38-126) 03/26/25 10:51
Total Protein 6.5 g/dl (6.3-8.2) 03/26/25 10:51
Albumin 2.6 g/dl (3.5-5.0) L 03/29/25 04:50
Physical Exam
-
NAD
ABD soft, expected incisional tenderness, nd
Stoma pink/viable with bowel sweat in appliance, no flatus noted
SQ PRETTY 65ml overnight, Pelvic PRETTY with 490ml overnight
NGT with minimal light outputs
Brewer with horace urine with bloody sediment, stent removed at bedside
Patient has a brewer catheter: Yes
--- NOTE | 2025-03-29 15:27 | PTCARENOTE ---
Addendum entered by Walter Ny RN 03/29/25 16:18:
Colorectal surg/Powdered Sugar Supervisor notified of decreasing urine OP, drain updates.
500 LR bolus ordered.
Maint fluids increased to 120ml/hr per surg.
Repeat H/H ordered for 1800.
Original Note:
Offers no complaints of pain at this time.
Not tolerating weaning of norepi, remains at 4mcg.
No further changes in assessment.
--- NOTE | 2025-03-29 17:12 | W.PN.UPDATE ---
Update Note
Progress Note Update
Patient remains on pressors throughout the day
Waxing and waning urine output noted
Had given 500 cc bolus of LR earlier today, when urine output was 20 cc/h
Presently on norepinephrine at 3
Provided additional bolus of LR, 500 cc. Maintenance rate increased to 120 per surgery
Urine output seems to have picked up in the last hour, 80 cc/h
Ureteral stent x 1 removed
It is noted that echocardiogram 03/25/2025 shows normal LV but dilated RV with normal function, PA pressure 66
There is also moderate mitral stenosis
Continue to monitor volume status closely
Avoid large volume boluses, follow oxygenation
Follow hemoglobin
Patient remains on Ancef per surgery
Low threshold for panculture and broadening of antibiotics if hypotension persists
Reviewed with critical care nursing
[2025-03-29 17:55] LABS: Hematocrit 27.0 % (37.0-47.0); Hemoglobin 8.9 g/dL (12.0-16.0)
--- NOTE | 2025-03-29 18:12 | W.PN.UPDATE ---
Update Note
Progress Note Update
Called to speak with Alysha, daughter, today to review assistant quality manager procedure yesterday. Was unable to reach. Lm on voicemail.
[2025-03-29] MEDS: DILAUDID 0.25 MG IV (22:56)
[2025-03-29 23:17] LABS: Glucose - Point of Care 148 mg/dl (70-99)
[2025-03-30] VITALS: BP 98/70
[2025-03-30] MEDS: OFIRMEV 100 IV (00:45)
[2025-03-30] MEDS: ANCEF 5 IV ×3 (00:46→16:37)
[2025-03-30] MEDS: NOVOLOG FLEXPEN-MODERATE RESISTANCE SC ×4 (00:47→17:28)
[2025-03-30] MEDS: NORMOSOL-R/PLASMALYTE-A 1000 IV ×4 (02:22→18:50)
--- NOTE | 2025-03-30 03:36 | PTCARENOTE ---
Patient Aox3, VSS, remains on 5mg of levophed, Normosol @120ml/hr. Afib with PVCs on monitor, Vpaced at times. C/o of pain in throat, and abdominal pain only when she coughs. Midline incision with Aquacel dressing, old drainage. B/L PRETTY drains
serosanguineous out put, Rectal flap intact with sutures, scat amount of bloody drainage. UOP okay. SCDS/TEDS on. Q2 turns with pillows, as patient tolerates. Encouraging IS when awake.
[2025-03-30] MEDS: LEVOPHED 250 IV ×2 (04:31→13:36)
[2025-03-30 05:09] LABS: Hematocrit 27.1 % (37.0-47.0); Hemoglobin 8.9 g/dL (12.0-16.0); Mean Corp Hgb Conc. 32.8 g/dL (33.0-37.0); Mean Corpuscular Volume 91.6 fL (81.0-99.0); Platelet Count 141 10^3/uL (130-400); Red Cell Dist. Width 17.4 % (11.5-14.5)
[2025-03-30 05:21] LABS: Glucose - Point of Care 163 mg/dl (70-99)
[2025-03-30 05:31] LABS: Albumin 2.7 g/dl (3.5-5.0); Blood Urea Nitrogen 20 mg/dl (7-17); Calcium 8.3 mg/dl (8.4-10.2); Carbon Dioxide 23 mmol/L (22-30); Chloride 113 mmol/L (98-107); Estimated Creatinine Clearance 33 ml/min; Glucose 144 mg/dl (70-99); Magnesium 2.1 mg/dl (1.6-2.3); Potassium 4.7 mmol/L (3.5-5.1); Sodium 142 mmol/L (135-145); eGFR 36.12
[2025-03-30 06:00] VITALS: BMI 38.3
[2025-03-30 06:44] LABS: Glucose - Point of Care 145 mg/dl (70-99)
--- NOTE | 2025-03-30 07:16 | W.PN.INTV ---
Today's Communication / Plan
Recommendations
Continue with IV fluids
Wean pressors as able
Check random cortisol in a.m.
Urine output adequate
Antibiotics per surgery
Enoxaparin for DVT prophylaxis
Assessment
-
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
status post robotic abdominoperineal resection, BIANKA/BSO, VRAM flap perineal reconstruction, 03/28. Patient admitted to ICU postoperatively given significant blood loss, hypotension requiring pressors
S/p robotic abdominoperineal resection, BIANKA/BSO, repair of vaginal defect, VRAM flap perineal reconstruction, 03/28/25
Complicated by blood loss, 1 L per OR records
Hypotension requiring pressors, suspect secondary to prolonged anesthesia, bleeding
Received 2 units of blood, 1 g TXA intraoperatively
Postoperative anemia, hemoglobin 7.8
Acute blood loss anemia
Improved to 10.3 post-transfusion
Recently hospitalized and discharged 02/24/2025
rectal bleeding, septic shock, left lower lobe pneumonia/UTI
Conditions present prior to admission
History of CKD stage IIIb
Diabetes
Anal squamous cell cancer, stage III
Diagnosed November 2023
s/p chemotherapy/radiation at [place]
Recurrence of disease per pelvic MRI January 2025
Follows oncology ([facility])
Atrial fibrillation on Eliquis
Now off amiodarone Per cardiology, remains on beta-joseph (Shadi)
Moderate pulm hypertension, echo March 2025, stable compared to prior echo
With dilated RV, normal function, PA pressure 66
Normal EF
Moderate mitral stenosis
History of stroke 1994 and again 2022 per patient
Suspected sleep apnea
Plan/recommendations
At this time, patient remains critically ill but stable
Required 8 mg of norepinephrine, weaned down to 6
Urine output is adequate, 80 cc/h
Received 3 units of blood, hemoglobin 8.9, stable
PRETTY drain with serosanguineous drainage, no torsten blood
Patient with also complex cardiac history, valvular disease, pulm hypertension, difficult to control atrial fibrillation, now on beta-joseph alone.
She has been on Eliquis as an outpatient
Recent hospital stay in February with rectal bleeding noted, controlled and Eliquis resumed at time of discharge
Moving forward
Continue with supportive care
Follow hemoglobin, transfuse as needed
Recent echocardiogram noted, moderate to severe pulm hypertension, dilated RV with normal function
Follow-up fluid status
No change in oxygen requirement despite multiple fluid boluses, positive fluid balance
Continue with norepinephrine, wean as able
Patient states she has chronic low blood pressure, follows cardiology (Shadi)
Check a.m. random cortisol
Continue IV fluids per surgery
Fluid boluses intermittently
Patient also has history of ESBL UTI
Recent hospital stay February with questionable UTI
Unclear whether infectious process may be contributing to low blood pressure
Remains on Ancef per surgery
Follow clinically
Patient also underwent BIANKA/BSO
Being followed by gynecology
Follow blood sugars
DVT prophylaxis: Sequential teds. Enoxaparin added 03/30
GI prophylaxis: Protonix
Full code
TCCT 31 min
Data:
Echo 03/25/2025: Normal biventricular function with mildly dilated RV, moderate mitral stenosis, severe TR, PA pressure 66
Subjective Dataa
Subjective Data
Date of Service:
Date of Service: March 30, 2025
Subjective:
Patient without any significant changes. Complaining of mild abdominal discomfort but otherwise denies chest pain. Has mild shortness of breath but appears comfortable, no change in oxygen requirement. Remains critically ill requiring
norepinephrine
Objective Data
Data Reviewed
Vital Signs / I&O / Oxygen:
Vital Signs
Temp Pulse Resp BP Pulse Ox
98.6 F 94 24 98/70 99
03/30/25 03:13 03/30/25 05:45 03/30/25 05:45 03/30/25 00:00 03/30/25 05:45
Intake and Output
03/29/25 03/30/25 03/31/25
06:59 06:59 06:59
Intake Total 3400 / 3595 4273.1 / 4273.1
Output Total 3220 / 3270 2185 / 2185
Balance 180 / 325 2088.1 / 2088.1
SaO2 99
Nasal Cannula flow liters per 2
minute
Physical Exam
General: Comfortable
HEENT: Normocephalic and Anicteric
Cardiovascular: S1-S2, Regular Rhythm, Murmur (n), Rub (n) and Peripheral Edema (n)
Respiratory: Wheeze (n), Crackles (n), Rhonchi (n) and Non-Labored Respirations
GI: Soft, Non Distended, Non Tender and NG Tube (Ostomy, PRETTY drains)
Neurology: Awake, Alert and No Motor Deficits (Generally weak)
Skin: Good Color (Mild pallor), Jaundice (n) and Rash (n)
Labs/Micro/Reports
Lab Data
03/30/25 04:41
03/30/25 04:41
[2025-03-30 08:00] VITALS: BP 104/68
[2025-03-30] MEDS: NSS (PRESERVATIVE FREE) 10 ML IV (08:39)
[2025-03-30] MEDS: PROTONIX IV 40 MG IV (08:39)
--- NOTE | 2025-03-30 09:30 | PTCARENOTE ---
Rec'd care of patient at 0700. Patient drowsy. Arousable to voice. Oriented x3. MAEx4. Afib on tele monitor. Occasional pacing. +Murmur. +3 edema in RUE. +1 edema in b/l LE. Palpable pulses. Right radial nasim leveled and zeroed; correlating with bp
cuff. Pulse ox 99% on 2L nc. Weaned to RA; pulse ox down to 90%. 2L reapplied. Bibasilar crackles. Abdomen round/soft/tender. Midline incision aquacell dressing intact. Left carleen with sanguinous drainage; right carleen with serosanguineous drainage.
Perineal dressing intact. NGT to LIS; scant amount of clear output. Colostomy stoma pink, budded. Rogers in place for critical I/O. IVFs and Levophed infusing through right SQ port. Titrating Levophed for MAP>65. MASD observed under right breast and
in groin. Order for desenex placed. Repositioned for comfort. Tolerating ice chips. Call chaves within reach.
--- NOTE | 2025-03-30 09:41 | W.PN.GS2 ---
Addendum entered and electronically signed by Prosper Vasques MD 03/30/25 12:34:
I saw and examined the patient.
The GAUGE MAKER APPRENTICE's note was reviewed and I agree with the note.
Comment: Remains on low dose levo, slightly increased from yesterday from 4mcg to 6mcg. low ngt output, good uop. Drains ss. Stoma PPV with flat appliance. Cont current mgmt, wean pressors, await bowel function.
Original Note:
Today's Communication / Plan
-
c/w drains, ngt, brewer
Assessment / Plan
-
74 yo female s/p adjunctive chemo now presenting for operative management of anal cancer
POD #2 RAL APR (CRS), vaginal defect repair with BIANKA/BSO (NUT SHELLER) and VRAM flap (Plastics)
Acute blood loss anemia S/P TXA and 2 units prbcs in OR with 2 additional units PRBC's post op
H/H drifting stable today s/p transfusion
Reactive leukocytosis present, trending down
PRETTY outputs: SQ PRETTY 25ml overnight (5ml yesterday), Pelvic PRETTY with 160ml overnight (395 yesterday)
Afebrile, hypotensive and on pressors, HR wnl
Extubated post operatively
NGT with low outputs, await bowel recovery prior to removal
Good urine output via Brewer, both stents have now been removed
Renal function stable
Plan:
Continue NPO with NGT in place to suction and await return of bowel function
C/W IVF, boluses as per ICU team
Ancef 1gm q8h for surg. ppx
Stoma nurse consulted for soma care
C/W SQ and Pelvic PRETTY's, follow outputs
IS while awake
Follow PRETTY outputs
Follow labs
C/W brewer
OR path pending
Scheduled tylneol IV and prn narcotics, hold NSAIDs given anemia and elevated Cr
PPI for GI ppx
OOB as able
Start renal dose of lovenox sq for VTE ppx continue SCDs
Appreciate medicine team following for medical management. Discussed care with blade grader operator at bedside
Subjective Data
-
Date of Service: March 30, 2025
Pt seen and examined at bedside with Dr. Vasques. Reports pain is controlled. Feeling tired. Denies n/v.
Objective Data
-
Intake and Output
03/29/25 03/30/25 03/31/25
06:59 06:59 06:59
Intake Total 3400 / 3595 4273.1 / 4418.6 441.0 / 441.0
Output Total 3220 / 3270 2185 / 2265 240 / 240
Balance 180 / 325 2088.1 / 2153.6 201.0 / 201.0
Intake:
Oral fluids 0 / 0
IV fluids (Total) 3020 / 3115 2813.1 / 2958.6 441.0 / 441.0
LR BOLUS 1999 / 1999
Norepinephrine 413.1 / 438.6 81.0 / 81.0
Normosol-R/Plasmalyte-A 1,000 720 / 800 2400 / 2520 360 / 360
ml @ 120 mls/hr IV .Q8H20M CARLOS
Rx#:[id number]
ns 300 / 300
IV piggybacks 100 / 100 1200 / 1200
Amount instilled into Drain ( 130 / 130
Total)
Left Lower Abdomen Pierce- 80 / 80
Hoover
Right Lower Abdomen Pierce- 50 / 50
Hoover B
Amount instilled into GI Tube ( 30 / 30 30 / 30
Total)
[place] Sump 30 / 30 30 / 30
Blood Products 100 / 100
Albumin 100 / 100
Blood Product Amount Infused ( 250 / 250
mL)
Packed Rbc Leukoreduced Unit 250 / 250
[id number]
Output:
Drain Output (Total) 495 / 495 515 / 515
Left Lower Abdomen Pierce- 440 / 440 455 / 455
Hoover
Right Lower Abdomen Pierec- 55 / 55 60 / 60
Hoover B
Gastrointestinal tube output ( 0 / 0
Total)
[place] Sump 0 / 0
Urine, Brewer 2725 / 2775 1670 / 1750 240 / 240
Vital Signs
Temp Pulse Resp BP Pulse Ox
97.7 F 90 18 104/68 99
03/30/25 08:41 03/30/25 09:00 03/30/25 09:00 03/30/25 08:00 03/30/25 09:00
Lab Results
03/30/25 04:41
03/30/25 04:41
Calcium 8.3 mg/dl (8.4-10.2) L 03/30/25 04:41
Phosphorus 4.4 mg/dl (2.5-4.5) 03/29/25 04:50
Magnesium 2.1 mg/dl (1.6-2.3) 03/30/25 04:41
Total Bilirubin 0.8 mg/dl (0.2-1.3) 03/26/25 10:51
AST 14 U/L (14-36) 03/26/25 10:51
ALT 13 U/L (0-35) 03/26/25 10:51
Alkaline Phosphatase 80 U/L (38-126) 03/26/25 10:51
Total Protein 6.5 g/dl (6.3-8.2) 03/26/25 10:51
Albumin 2.7 g/dl (3.5-5.0) L 03/30/25 04:41
Physical Exam
-
NAD
ABD soft, expected incisional tenderness, nd
Stoma pink/viable with bowel sweat in appliance, no flatus noted
JPs with SSF
NGT with minimal light outputs
Brewer with horace urine
Patient has a brewer catheter: Yes
[2025-03-30] MEDS: DESENEX/MITRAZOL/ZEASORB 1 APPLIC TOPICAL ×2 (10:58→21:17)
--- NOTE | 2025-03-30 12:17 | PTCARENOTE ---
Systems reviewed. No major changes from previous assessment. Patient resting comfortably. Denies pain. Afib on tele. Titrating Levophed for MAP>65. Pulse ox 98-100% on 2L nc.
--- NOTE | 2025-03-30 12:23 | W.PN.HOSP.TC ---
Today's Communication/Plan
-
Continue management in the ICU
Continue with Levophed
NPO
Assessment / Plan
Assessment / Plan
Impression:
Patient is a 74y F with PMH significant for A-Fib, CHF and anal cancer with recent recurrence who presented to on 03/28 for scheduled surgery for resection of recurrent malignancy. Patient underwent ureteroscopy with bilateral ureteral stents,
robotic APR, BIANKA / BSO, repair of vaginal defect and perineal reconstruction / flap on 03/28/25. She received 2 units PRBC and 1g TXA during the surgeries. Patient was successfully extubated post-op. She was on pressors post-op which were able to
be weaned, but have since been restarted at low dose to maintain adequate perfusion.
Medicine service was consulted for management of patient's multiple medical issues.
Assessment/plan:
Anal Cancer
POD #1 s/p Robotic APR, BIANKA/BSO, Repair of Vaginal Defect, Perineal Reconstruction / Flap
- Admitted to ICU post-op.
- Continue post-op care per surgical service(s).
- Monitor bloody appearing PRETTY drain output.
- Pain control, DVT prophylaxis, etc per Surgery.
- IV Ancef per Plastics recommendations.
Acute Blood Loss Anemia
Hypotension / Hypovolemic Shock
- Received 3 units PRBCs total thus far (and 1 g TXA), several liters IVFs and currently on maintenance Normosol.
- Also received dose of IV albumin overnight.
- Currently on low-dose Levophed for BP support - wean as able.
- Follow H&H and transfuse additional blood products if needed (Hgb this AM much improved at 10.3).
- Bolus fluids / albumin / etc if needed to maintain perfusion.
03/30
Continue Levophed
Hypothermia
- Mild hypothermia post-op. Likely combination of anesthesia, blood loss, etc.
- resolved
Chronic HFpEF
- Hypotensive at present as noted above.
- Suspect that patient will require IV diuresis at some point given volume needed for blood product replacement / hypotension / etc.
- Continue to follow accurate I/Os, daily weights, etc.
- IV Lasix PRN for worsening edema, increased weight, etc - as BP allows.
- Patient on only twice weekly Lasix as an outpatient.
Persistent Atrial Fibrillation
- Stable. Amiodarone held pre-op.
- Lopressor IV at low dose with holding parameters for BP.
- Eliquis on hold for surgery, blood loss, etc.
DM-II
- Stable. Hold usual oral agents.
- Follow glucose and cover with SSI as needed.
- A1C was 5.7 on 03/26/25.
CKD III
- Stable. SCr is actually improved from prior baseline (1.3 compared to 1.6).
- Follow for changes with fluid shifts / BP changes / etc.
- Avoid nephrotoxic agents / hypotension / etc.
Hypothyroidism
- TFTs normal in February of this year.
- Resume usual T4 supplementation when OK for PO meds.
- Repeat TFTs given hypothermia.
- Consider IV supplementation if patient remains NPO x several days.
DVT Prophylaxis: SCDs
CODE STATUS: Full code
Diet: NPO
Disposition: Continue management in the ICU
Continue with Levophed
NPO
Total time spent on today's encounter was 74 minutes which included time spent in counseling the patient/family regarding diagnosis and treatment plan as listed above, goals of care, and symptom management. Case was discussed with nursing staff,
specialists, and care coordinators/case management. All labs and imaging personally reviewed by me. Remainder the time spent in detailed review of previous records, lab data, imaging, and other medical provider documentation.
Anticipated Discharge: > 48 hours
Subjective/Interval History
-
Date of Service: March 30, 2025
Patient denies chest pain, still currently on Levophed
Objective Data
-
Labs:
Laboratory Results
03/30/25
04:41
WBC 14.3 H
Hgb 8.9 L
Hct 27.1 L
Plt Count 141
Sodium 142
Potassium 4.7
Chloride 113 H
Carbon Dioxide 23
BUN 20 H
Creatinine 1.5 H
Glucose 144 H
Calcium 8.3 L
Vital Signs:
Vital Signs
Temp Pulse Resp BP Pulse Ox
97.6 F 99 22 104/68 100
03/30/25 11:32 03/30/25 12:00 03/30/25 12:00 03/30/25 08:00 03/30/25 12:00
I&O
03/29/25 03/30/25 03/31/25
06:59 06:59 06:59
Intake Total 3400 / 3595 4273.1 / 4418.6 876.0 / 876.0
Output Total 3220 / 3270 2185 / 2265 680 / 680
Balance 180 / 325 2088.1 / 2153.6 196.0 / 196.0
Physical Exam
-
General: Well Developed, Well Nourished and Obese
HEENT: Normocephalic, Atraumatic and Other (NG tube)
Respiratory: Rales and Non Labored Respirations
Cardiac: S1/S2 and Irregular Rhythm
Breast: Deferred by me
GI: Tender and Other (Drain at surgical site)
Genito-urinary: No Costovertebral Tender
Musculoskeletal: No Clubbing and No Cyanosis
Skin: Warm
Neuro: Awake, Alert, Oriented and AO x 3
Psych: Calm
[2025-03-30 12:25] LABS: Glucose - Point of Care 139 mg/dl (70-99)
[2025-03-30 16:00] VITALS: BP 109/74
--- NOTE | 2025-03-30 16:40 | PTCARENOTE ---
Systems reviewed. No changes. VSS.
[2025-03-30] MEDS: DILAUDID 0.25 MG IV (17:29)
[2025-03-30 17:35] LABS: Glucose - Point of Care 149 mg/dl (70-99)
[2025-03-30] MEDS: LOVENOX 30 MG SC (17:44)
--- NOTE | 2025-03-30 21:00 | PTCARENOTE ---
hotel service manager, aaox3, drowsy, AFib/AV paced HR 90-low 100s. SQ port/LA IV WNL- IVF, Levo infusing per work list. Ernestina rouse leveled/zeroed. Sat 100% on 2LNC. NGT to LIWS, flushed. colostomy pink, budded, no gas or stool noted in bag. Rogers cath
draining adequate amt yellow urine. mouth care done. call chaves with pt. care ongoing.
[2025-03-31] VITALS (7 sets, daily range): BP systolic 103–114; BP diastolic 50–59; BMI 38.0
[2025-03-31] MEDS: ANCEF 5 IV ×3 (00:51→16:20)
[2025-03-31] MEDS: LEVOPHED 250 IV ×3 (00:51→18:35)
[2025-03-31] MEDS: NOVOLOG FLEXPEN-MODERATE RESISTANCE 1 UNITS SC ×2 (00:58→12:14)
[2025-03-31] MEDS: CHLORASEPTIC/SORE THROAT SPRAY 1 SPRAY PO ×2 (00:58→21:39)
--- NOTE | 2025-03-31 01:00 | PTCARENOTE ---
no changes in pt assessment, prn dilaudid for 6/10 abd pain, CHG cloths, turned/repositioned. call chaves with pt.
[2025-03-31] MEDS: DILAUDID 0.5 MG IV (01:04)
[2025-03-31] MEDS: LR 1000 IV (01:04)
[2025-03-31 01:09] LABS: Glucose - Point of Care 162 mg/dl (70-99)
[2025-03-31 04:48] LABS: Hematocrit 22.7 % (37.0-47.0); Hemoglobin 7.2 g/dL (12.0-16.0); Mean Corp Hgb Conc. 31.7 g/dL (33.0-37.0); Mean Corpuscular Volume 95.0 fL (81.0-99.0); Platelet Count 117 10^3/uL (130-400); Red Cell Dist. Width 17.1 % (11.5-14.5)
[2025-03-31 05:21] LABS: Cortisol, Random 9.3 ug/dl
[2025-03-31] MEDS: NOVOLOG FLEXPEN-MODERATE RESISTANCE SC ×2 (05:38→18:47)
[2025-03-31 06:08] LABS: Hematocrit 21.1 % (37.0-47.0); Hemoglobin 6.6 g/dL (12.0-16.0); Mean Corp Hgb Conc. 31.3 g/dL (33.0-37.0); Mean Corpuscular Volume 94.6 fL (81.0-99.0); Nucleated Red Blood Cells % 0 %; Platelet Count 106 10^3/uL (130-400); Red Cell Dist. Width 17.3 % (11.5-14.5)
[2025-03-31 06:38] LABS: ALT (SGPT) < 10 U/L (0-35); AST (SGOT) 14 U/L (14-36); Albumin 1.6 g/dl (3.5-5.0); Alkaline Phosphatase 38 U/L (38-126); Blood Urea Nitrogen 13 mg/dl (7-17); Calcium 5.5 mg/dl (8.4-10.2); Carbon Dioxide 19 mmol/L (22-30); Chloride 126 mmol/L (98-107); Estimated Creatinine Clearance 56 ml/min; Glucose 111 mg/dl (70-99); Magnesium 1.5 mg/dl (1.6-2.3); Potassium 3.0 mmol/L (3.5-5.1); Sodium 146 mmol/L (135-145); Total Protein 3.5 g/dl (6.3-8.2); eGFR > 60.00
[2025-03-31] MEDS: DESENEX/MITRAZOL/ZEASORB 1 APPLIC TOPICAL ×2 (07:28→20:55)
[2025-03-31] MEDS: PROTONIX IV 40 MG IV (07:29)
[2025-03-31] MEDS: NSS (PRESERVATIVE FREE) 10 ML IV (07:29)
[2025-03-31 07:34] LABS: Glucose - Point of Care 156 mg/dl (70-99)
[2025-03-31] MEDS: KCL 270 MEQ IV ×2 (07:50→11:15)
[2025-03-31] MEDS: CALCIUM GLUCONATE 290 MG IV (07:58)
--- NOTE | 2025-03-31 08:14 | PTCARENOTE ---
Updated plan of cares, await follow up surgery for PT/OT needs. Labs and electrolytes as ordered. Follow vascular team access needs. Update with freelance graphic designer and surgery at bedside. Will continue to follow and update teaching and plan of cares.
--- NOTE | 2025-03-31 08:15 | VNURNOTE ---
Chart reviewed. Patient is current with [facility]. Will continue to follow hospital course and DC plans.
--- NOTE | 2025-03-31 08:35 | PTCARENOTE ---
Updated assessment, vitall sign trends ongoing and as documented. Vascular access team at bedside. Update in line needs with web solutions architect and team. Electrolytes as ordered, await prbc to follow post placement. Lab trends as ordered and follow up plan
of cares ongoing.
[2025-03-31] MEDS: MAGNESIUM SULFATE 50 IV (08:47)
[2025-03-31] MEDS: MYCOSTATIN CREAM 1 APPLIC TOPICAL ×2 (08:47→20:55)
[2025-03-31] MEDS: OFIRMEV 100 IV ×3 (10:28→21:39)
--- NOTE | 2025-03-31 10:33 | W.PN.HOSP.TC ---
Today's Communication/Plan
-
Hemoglobin of 6.6 receiving additional unit of PRBC
Replete electrolytes
IV antibiotics per surgery
Wean off Levophed
Assessment / Plan
Assessment / Plan
General: Well Developed, Well Nourished and Obese
HEENT: Normocephalic, Atraumatic and Other (NG tube)
Respiratory: Rales and Non Labored Respirations
Cardiac: S1/S2 and Irregular Rhythm
Breast: Deferred by me
GI: Tender and Other (Drain at surgical site)
Genito-urinary: brewer
Musculoskeletal: No Clubbing and No Cyanosis, Anasarca noted
Skin: Warm
Neuro: Awake, Alert, Oriented and AO x 3
Psych: Calm
Impression:
Patient is a 74y F with PMH significant for A-Fib, CHF and anal cancer with recent recurrence who presented to on 03/28 for scheduled surgery for resection of recurrent malignancy. Patient underwent ureteroscopy with bilateral ureteral stents,
robotic APR, BIANKA / BSO, repair of vaginal defect and perineal reconstruction / flap on 03/28/25. She received 2 units PRBC and 1g TXA during the surgeries. Patient was successfully extubated post-op. She was on pressors post-op which were able to
be weaned, but have since been restarted at low dose to maintain adequate perfusion.
Medicine service was consulted for management of patient's multiple medical issues.
Assessment/plan:
Anal Cancer s/p Robotic APR, BIANKA/BSO, Repair of Vaginal Defect, Perineal Reconstruction / Flap
- Continue post-op care per surgical service(s).
- Monitor bloody appearing PRETTY drain output.
- Pain control, DVT prophylaxis, etc per Surgery.
- IV Ancef per surgery recommendations.
Acute Blood Loss Anemia
Hypotension / Hypovolemic Shock
- Received 4 units PRBCs total thus far (and 1 g TXA) and receiving additional unit of PRBC now, several liters IVFs and currently on maintenance Normosol.
- Currently on low-dose Levophed for BP support - wean as able.
- Follow H&H and transfuse additional blood products if needed
- Bolus fluids / albumin / etc if needed to maintain perfusion.
Hypothermia
- Mild hypothermia post-op. Likely combination of anesthesia, blood loss, etc.
- resolved
Chronic HFpEF
- Hypotensive at present as noted above.
- Suspect that patient will require IV diuresis at some point given volume needed for blood product replacement / hypotension / etc.
- Continue to follow accurate I/Os, daily weights, etc.
- IV Lasix PRN for worsening edema, increased weight, etc - as BP allows.
- Patient on only twice weekly Lasix as an outpatient.
Persistent Atrial Fibrillation
- Stable. Amiodarone held pre-op.
- Lopressor IV at low dose with holding parameters for BP.
- Eliquis on hold for surgery, blood loss, etc.
DM-II
- Stable. Hold usual oral agents.
- Follow glucose and cover with SSI as needed.
- A1C was 5.7 on 03/26/25.
CKD III
- Stable. SCr is actually improved from prior baseline (1.3 compared to 1.6).
- Follow for changes with fluid shifts / BP changes / etc.
- Avoid nephrotoxic agents / hypotension / etc.
Hypothyroidism
- TFTs normal in February of this year.
- Resume usual T4 supplementation when OK for PO meds.
- Repeat TFTs given hypothermia.
- Consider IV supplementation if patient remains NPO x several days.
Hypocalcemia
Hypomagnesemia
Hypophosphatemia
Hypokalemia
-Replete and monitor
Mild hypernatremia
- Monitor for now.
DVT Prophylaxis: SCDs
CODE STATUS: Full code
Anticipated Discharge: > 48 hours
Subjective/Interval History
-
Date of Service: March 31, 2025
states of abd pain intermittent
receiving blood transfusion
Objective Data
-
Labs:
Laboratory Results
03/31/25 03/31/25 03/31/25
04:14 05:48 10:18
WBC 11.8 H 10.8
Hgb 7.2 L 6.6 L*
Hct 22.7 L 21.1 L
Plt Count 117 L 106 L
PT Pending
INR Pending
APTT Pending
Sodium Cancelled 146 H
Potassium Cancelled 3.0 L D
Chloride Cancelled 126 H
Carbon Dioxide Cancelled 19 L
BUN Cancelled 13
Creatinine Cancelled 0.9
Glucose Cancelled 111 H
Calcium Cancelled 5.5 L* D
Total Bilirubin Cancelled 0.4
AST Cancelled 14
ALT Cancelled < 10
Alkaline Phosphatase Cancelled 38
03/31/25
12:00
WBC
Hgb Pending
Hct Pending
Plt Count
PT
INR
APTT
Sodium Pending
Potassium Pending
Chloride Pending
Carbon Dioxide Pending
BUN Pending
Creatinine Pending
Glucose Pending
Calcium Pending
Total Bilirubin
AST
ALT
Alkaline Phosphatase
Vital Signs:
Vital Signs
Temp Pulse Resp BP Pulse Ox
97.5 F 101 20 114/59 100
03/31/25 09:50 03/31/25 09:50 03/31/25 09:50 03/31/25 09:50 03/31/25 09:45
I&O
03/30/25 03/31/25 04/01/25
06:59 06:59 06:59
Intake Total 4273.1 / 4418.6 3461.0 / 3658.0 944.5 / 944.5
Output Total 2185 / 2265 2970 / 2970 400 / 400
Balance 2088.1 / 2153.6 491.0 / 688.0 544.5 / 544.5
Data Reviewed
-
Total Time Spent with Patient (in minutes): 55
--- NOTE | 2025-03-31 11:06 | PTCARENOTE ---
Updatte with hospitalist team at bedside with patient.Continue follow up with neck band maker and pharmacy. Electrolyte replacement ongoing. Prepping to complete PRBC, vital signs as per protocol. Wound care update at bedside, continue follow up ostomy
teaching. Follow up labs as ordered with time adjust for bmp. Continue with teaching and follow up pt/ot plan of cares.
--- NOTE | 2025-03-31 11:51 | W.PN.CRS1 ---
Today's Communication / Plan
-
1 unit prbcs
repeat h/h pending
OOB with PT/OT
hold lovenox
continue ancef
Assessment/Plan
-
74 yo female s/p adjunctive chemo now presenting for operative management of anal cancer
POD #3 RAL APR (CRS), vaginal defect repair with BIANKA/BSO (BOARD LAYER) and VRAM flap (Plastics)
Acute blood loss anemia S/P TXA and 2 units prbcs in OR with 2 additional units PRBC's post op
Hgb 6.6, 1 unit PRBCs. Repeat CBC pending.
PRETTY outputs: about 330ml total
Afebrile, hypotensive and on pressors, HR wnl
NGT with low outputs, await bowel recovery prior to removal
Plan:
-Continue NPO with NGT in place to suction and await return of bowel function
-C/W IVF, boluses as per ICU team
-Ancef 1gm q8h per Dr. Chen (flaps)
-Stoma nurse consulted for soma care
-IS while awake
-Follow PRETTY outputs
-Follow labs
-OR path pending
-Scheduled tylneol IV and prn narcotics, hold NSAIDs given anemia and elevated Cr
-PPI for GI ppx
-OOB as able. PT/OT ordered.
- Lovenox held due to anemia. Continue SCD/TEDs for DVT prophylaxis.
-Appreciate medicine team following for medical management.
Subjective Data
Procedure
03/28/2025- RAL APR (CRS), vaginal defect repair with BIANKA/BSO (BOARD LAYER) and VRAM flap (Plastics)
Subjective Data
Date of Service: March 31, 2025
Patient states her pain is controlled. She is overall very tired. She denies nausea or vomiting.
Objective Data
-
Vital Signs
Temp Pulse Resp BP Pulse Ox
98.5 F 112 8 109/52 100
03/31/25 11:20 03/31/25 11:20 03/31/25 11:20 03/31/25 11:20 03/31/25 11:08
Intake & Output
03/30/25 03/31/25 04/01/25
06:59 06:59 06:59
Intake Total 4273.1 / 4418.6 3461.0 / 3658.0 1831.6 / 1831.6
Output Total 2185 / 2265 2970 / 2970 625 / 625
Balance 2088.1 / 2153.6 491.0 / 688.0 1206.6 / 1206.6
Intake:
Oral fluids 0 / 0
IV fluids (Total) 2813.1 / 2958.6 3371.0 / 3501.0 574.6 / 574.6
Lr 1,000 ml @ 100 mls/hr IV . 400 / 400
Q10H CARLOS Rx#:[id number]
Norepinephrine 413.1 / 438.6 591.0 / 621.0 174.6 / 174.6
Normosol-R/Plasmalyte-A 1,000 2400 / 2520 2780 / 2780
ml @ 120 mls/hr IV .Q8H20M CARLOS
Rx#:[id number]
IV piggybacks 1200 / 1200 732.0 / 732.0
Amount instilled into Drain ( 130 / 130
Total)
Left Lower Abdomen Pierce- 80 / 80
Hoover
Right Lower Abdomen Pierce- 50 / 50
Hoover B
Amount instilled into GI Tube (
Total)
[place] Sump /
Blood Products 100 / 100 275 / 275
Albumin 100 / 100
Packed red blood cells 275 / 275
Blood Product Amount Infused ( 250 / 250
mL)
Packed Rbc Leukoreduced Unit 250 / 250
[id number]
Output:
Drain Output (Total) 515 / 515 330 / 330 100 / 100
Left Lower Abdomen Pierce- 455 / 455 210 / 210 50 / 50
Hoover
Right Lower Abdomen Pierce- 60 / 60 120 / 120 50 / 50
Hoover B
Urine, Rogers 1670 / 1750 2640 / 2640 525 / 525
Physical Exam
-
General: No Acute Distress and AOx3
Abdomen: Soft, Non Distended and Non Tender
Skin: Warm and Dry
Incision: Clear, Dry, Intact
--- NOTE | 2025-03-31 12:20 | W.PN.PLAS ---
Progress Note
Subjective Data
No issues overnight
Objective Data
Vital Signs
Temp Pulse Resp BP Pulse Ox
98.5 F 105 15 109/52 100
03/31/25 11:20 03/31/25 12:00 03/31/25 12:00 03/31/25 11:20 03/31/25 12:00
Intake and Output
03/30/25 03/31/25 04/01/25
06:59 06:59 06:59
Intake Total 4273.1 / 4418.6 3461.0 / 3658.0 1921.6 / 1921.6
Output Total 2185 / 2265 2970 / 2970 625 / 625
Balance 2088.1 / 2153.6 491.0 / 688.0 1296.6 / 1296.6
Intake:
Oral fluids 0 / 0
IV fluids (Total) 2813.1 / 2958.6 3371.0 / 3501.0 597.1 / 597.1
Lr 1,000 ml @ 100 mls/hr IV . 400 / 400
Q10H CARLOS Rx#:[id number]
Norepinephrine 413.1 / 438.6 591.0 / 621.0 197.1 / 197.1
Normosol-R/Plasmalyte-A 1,000 2400 / 2520 2780 / 2780
ml @ 120 mls/hr IV .Q8H20M CARLOS
Rx#:[id number]
IV piggybacks 1200 / 1200 799.5 / 799.5
Amount instilled into Drain ( 130 / 130
Total)
Left Lower Abdomen Pierce- 80 / 80
Hoover
Right Lower Abdomen Pierce- 50 / 50
Hoover B
Amount instilled into GI Tube ( 30 / 30 90 / 90
Total)
[place] Sump 30 / 30 90 / 90
Blood Products 100 / 100 275 / 275
Albumin 100 / 100
Packed red blood cells 275 / 275
Blood Product Amount Infused ( 250 / 250
mL)
Packed Rbc Leukoreduced Unit 250 / 250
[id number]
Output:
Drain Output (Total) 515 / 515 330 / 330 100 / 100
Left Lower Abdomen Pierce- 455 / 455 210 / 210 50 / 50
Hoover
Right Lower Abdomen Pierce- 60 / 60 120 / 120 50 / 50
Hoover B
Urine, Rogers 1670 / 1750 2640 / 2640 525 / 525
Physical exam:
No acute distress
No increased work of breathing
Alert and interactive
Abdominal incision dressing in place, PRETTY drain serosanguineous with appropriate output
flap warm evidence of good perfusion, no evidence of venous congestion,
Appropriate cap refill
Some skin edge demarcation consistent with ecchymoses
Assessment / Plan
Status post myocutaneous flap reconstruction after APR
No prolonged direct sitting
Pressure offloading to the flap
Strip and record PRETTY drain output
[2025-03-31 12:23] LABS: Glucose - Point of Care 161 mg/dl (70-99)
[2025-03-31 12:35] LABS: INR 1.95; PT 22.4 Sec (11.4-14.6)
[2025-03-31 12:36] LABS: APTT 46.0 Sec (23.4-35.0)
[2025-03-31 12:44] LABS: Hematocrit 32.1 % (37.0-47.0); Hemoglobin 10.3 g/dL (12.0-16.0)
--- NOTE | 2025-03-31 12:46 | WOUNDNOTE ---
[facility] RN note: Patient s/p ostomy surgery for anal cancer, Robotic APR with repair of vaginal defect, BIANKA/BSO and VRAM flap perineal reconstruction.
See H&P for complete history.
PMH: DM, A Fib, CHF, HTN, obesity, UTI, stress incontinence and frequency, stroke and neuropathy.
Ostomy location and type: Colostomy LUQ, stoma pale pink, no gas and scant output. Patient remains NPO with NGT.
Planned with patient ostomy pouch emptying and changing appliance next few days. Gave patient ostomy folder and encouraged patient and family to review. Can answer any questions at teaching session with family. Asked patient to coordinate with her
children.
Waves wafer # [id number]
Waves pouch # [id number]
Ostomy supplies ordered from [facility] and asked nurse to place at bedside.
Turned patient, sacrum blanchable red, perineal dressing with ABD intact. Heels are blanchable and intact. Repositioned patient to L semi side lying position, pillows in use under calves and arms.
Note to case management: VN services recommended for ostomy teaching.
Nursing care plan updated, will follow as needed.
--- NOTE | 2025-03-31 13:08 | PTCARENOTE ---
Update with loan workout officer. Continue follow up labs as ordered. Await follow up orders. Continue incentive spirometer while awake. Will update blood bank and follow up medications with pharmacy. Continue emotional support, teaching and supportive
cares.
--- NOTE | 2025-03-31 14:02 | W.PN.INTV ---
Today's Communication / Plan
Recommendations
- Discontinue Ringer lactate infusion
- Lasix 20 mg IV stat
- Fresh frozen plasma x 2, vitamin K 10 mg IV for coagulopathy
- Additional KCl IV replacement, Iv Mg replacement
- Place midline IV cannula
Assessment
-
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
status post robotic abdominoperineal resection, BIANKA/BSO, VRAM flap perineal reconstruction, 03/28. Patient admitted to ICU postoperatively given significant blood loss, hypotension requiring pressors
Conditions present prior to admission
History of CKD stage IIIb
Diabetes
Anal squamous cell cancer, stage III
Diagnosed November 2023
s/p chemotherapy/radiation at [place]
Recurrence of disease per pelvic MRI January 2025
Follows oncology ([facility])
Atrial fibrillation on Eliquis
Now off amiodarone Per cardiology, remains on beta-joseph (Shadi)
Moderate pulm hypertension, echo March 2025, stable compared to prior echo
With dilated RV, normal function, PA pressure 66
Normal EF
Moderate mitral stenosis
History of stroke 1994 and again 2022 per patient
Suspected sleep apnea
Overview 03/2025: Patient currently with a MAP of 71, Levophed infusing at 8, Ringer lactate at 100/h. Saturating 100% on 2 L supplemental oxygen. Status post 4 unit PRBC in total.
Assessment and plan:
#1. Shock, hemorrhagic related to blood loss and likely post-op vasoplegia
- Still requiring Levophed, wean as tolerated
- s/p 4 units of PRBC
- Serial H&H. Hematocrit improving.
- Discontinue IV Ringer lactate infusion
- If hypotension persists, will consider abd/pelvis imaging
#2. Coagulopathy, suspect transfusion related
- INR noted to be elevated, give vitamin K 10 mg IV stat
- Fresh frozen plasma, 2 units, IV calcium given for hypocalcemia
- If additional blood transfusion needed will give FFP and platelets along with PRBC
- Lasix 20 mg IV stat
#3. S/p robotic abdominoperineal resection, BIANKA/BSO, repair of vaginal defect, VRAM flap perineal reconstruction, 03/28/25
- Complicated by blood loss, 1 L per OR records. TXA given intra-operatively
#4. Chronic HFpEF
- Patient appears volume overloaded on exam
- Discontinue Ringer lactate infusion, Lasix 20 mg IV x 1
- Monitor input and output closely
#5. Chronic atrial fibrillation.
- Holding of metoprolol in view of hypotension. Eliquis on hold in view of bleeding.
- Continue telemetry monitoring
Other medical diagnoses:
- Hypothyroidism
- Diabetes mellitus
- h/o CKD. Cr normal this AM.
DVT prophylaxis: Sequential compression. Lovenox on hold
GI prophylaxis: Protonix
Critical Care time 45 mins -- The patient is admitted for acute critical illness for the treatment of vital organ failure and/or prevention of further life-threatening conditions. Total care includes time spent in review of history, physical exam,
medications, hemodynamic/ventilator parameters, laboratory data, imaging and discussion with house staff, pharmacy, respiratory therapy, systems software specialist, and nursing.
Data:
Echo 03/25/2025: Normal biventricular function with mildly dilated RV, moderate mitral stenosis, severe TR, PA pressure 66
Subjective Dataa
Subjective Data
Date of Service:
Date of Service: March 31, 2025
Subjective:
Comfortably sitting in bed, in no acute distress.
Review of Systems
Genitourinary: Other (All 14 systems reviewed and negative except as stated above in the history of present illness.)
Objective Data
Data Reviewed
Vital Signs / I&O / Oxygen:
Vital Signs
Temp Pulse Resp BP Pulse Ox
98.5 F 102 17 109/52 100
03/31/25 11:20 03/31/25 13:00 03/31/25 13:00 03/31/25 11:20 03/31/25 13:05
Intake and Output
03/30/25 03/31/25 04/01/25
06:59 06:59 06:59
Intake Total 4273.1 / 4418.6 3461.0 / 3658.0
Output Total 2185 / 2265 2970 / 2970 625 / 625
Balance 2088.1 / 2153.6 491.0 / 688.0 1386.6 / 1386.6
SaO2 100
Nasal Cannula flow liters per 2
minute
Physical Exam
General: Comfortable
HEENT: Normocephalic and Anicteric
Cardiovascular: S1-S2, Regular Rhythm, Murmur (n), Rub (n) and Peripheral Edema (n)
Respiratory: Wheeze (n), Crackles (n), Rhonchi (n) and Non-Labored Respirations
GI: Soft, Non Distended, Non Tender and NG Tube (Ostomy, PRETTY drains)
Neurology: Awake, Alert and No Motor Deficits (Generally weak)
Skin: Good Color (Mild pallor), Jaundice (n) and Rash (n)
Labs/Micro/Reports
Lab Data
03/31/25 12:10
Laboratory Results
03/31/25
12:10
PT 22.4 H
INR 1.95
APTT 46.0 H
[2025-03-31] MEDS: AQUAMEPHYTON 51 MG IV (14:04)
--- NOTE | 2025-03-31 15:21 | CM ---
Rectal cancer. POD # 3: Robotic abdominoperineal resection,vaginal defect repair, BIANKA, BSO, VRAM flap perineal reconstruction. IV/Ab, fresh frozen plasma x 2 today, Vitamin K IV for coagulopathy. Discharge POC: TBD. Awaiting therapy evaluation
and recommendation.
[2025-03-31] MEDS: POTASSIUM PHOSPHATE 253.4091 MEQ IV (16:06)
[2025-03-31] MEDS: LASIX 20 MG IV (16:07)
[2025-03-31 18:51] LABS: Glucose - Point of Care 141 mg/dl (70-99)
--- NOTE | 2025-03-31 21:00 | PTCARENOTE ---
molding process technician, aaox3, drowsy. SQ port/LA IV/L midline WNL- Levo infusing per work list. Ernestina rouse leveled/zeroed. Sat 100% on 2LNC. NGT to LIWS, flushed. colostomy pink, budded, no gas or stool noted in bag. Rogers cath draining adequate amt yellow
urine. CHG cloths, denture care done. call chaves with pt. care ongoing.
[2025-03-31] MEDS: DILAUDID 0.25 MG IV (21:13)
[2025-03-31 21:31] LABS: Hematocrit 26.2 % (37.0-47.0); Hemoglobin 8.2 g/dL (12.0-16.0); Mean Corp Hgb Conc. 31.3 g/dL (33.0-37.0); Mean Corpuscular Volume 93.9 fL (81.0-99.0); Red Cell Dist. Width 17.0 % (11.5-14.5)
[2025-03-31 21:41] LABS: ALT (SGPT) 12 U/L (0-35); AST (SGOT) 19 U/L (14-36); Albumin 2.3 g/dl (3.5-5.0); Alkaline Phosphatase 54 U/L (38-126); Blood Urea Nitrogen 15 mg/dl (7-17); Calcium 7.0 mg/dl (8.4-10.2); Carbon Dioxide 20 mmol/L (22-30); Chloride 122 mmol/L (98-107); Estimated Creatinine Clearance 45 ml/min; Glucose 133 mg/dl (70-99); Potassium 4.3 mmol/L (3.5-5.1); Sodium 145 mmol/L (135-145); Total Protein 4.5 g/dl (6.3-8.2); eGFR 52.40
[2025-03-31 22:14] LABS: Platelet Count 99 10^3/uL (130-400)
--- NOTE | 2025-04-01 | PTCARENOTE ---
no changes in assessment.
[2025-04-01] MEDS: ANCEF 5 IV ×3 (00:07→17:09)
[2025-04-01] MEDS: NOVOLOG FLEXPEN-MODERATE RESISTANCE SC ×4 (00:12→17:29)
[2025-04-01 00:23] LABS: Glucose - Point of Care 147 mg/dl (70-99)
[2025-04-01] MEDS: OFIRMEV 100 IV (04:11)
[2025-04-01] MEDS: DILAUDID 0.25 MG IV ×2 (04:11→18:20)
[2025-04-01 04:30] LABS: Hematocrit 23.9 % (37.0-47.0); Hemoglobin 7.7 g/dL (12.0-16.0); Mean Corp Hgb Conc. 32.2 g/dL (33.0-37.0); Mean Corpuscular Volume 95.6 fL (81.0-99.0); Nucleated Red Blood Cells % 0 %; Platelet Count 83 10^3/uL (130-400); Red Cell Dist. Width 16.9 % (11.5-14.5)
--- NOTE | 2025-04-01 04:30 | PTCARENOTE ---
attempted to turn levo gtt off, not tolerating. no further changes in assessment.
[2025-04-01 04:37] LABS: INR 2.02; PT 23.0 Sec (11.4-14.6)
[2025-04-01 04:38] LABS: APTT 44.5 Sec (23.4-35.0)
[2025-04-01 05:20] LABS: Blood Urea Nitrogen 15 mg/dl (7-17); Calcium 6.6 mg/dl (8.4-10.2); Carbon Dioxide 21 mmol/L (22-30); Chloride 125 mmol/L (98-107); Estimated Creatinine Clearance 50 ml/min; Glucose 106 mg/dl (70-99); Magnesium 1.8 mg/dl (1.6-2.3); Potassium 3.9 mmol/L (3.5-5.1); Sodium 147 mmol/L (135-145); eGFR 58.75
[2025-04-01 06:00] VITALS: BMI 38.5
[2025-04-01] MEDS: CALCIUM GLUCONATE 130 MG IV (06:14)
[2025-04-01] MEDS: NSS (PRESERVATIVE FREE) 10 ML IV (07:56)
[2025-04-01] MEDS: PROTONIX IV 40 MG IV (07:56)
[2025-04-01] MEDS: DESENEX/MITRAZOL/ZEASORB 1 APPLIC TOPICAL ×2 (07:57→20:16)
[2025-04-01] MEDS: MYCOSTATIN CREAM 1 APPLIC TOPICAL ×2 (07:57→20:15)
[2025-04-01 08:34] VITALS: BP 98/54
--- NOTE | 2025-04-01 10:21 | W.PN.OBG.DWH ---
Today's Communication / Plan
-
cont recommendations per primary service.
Assessment/Plan
-
POD#5 s/p RA TLH BSO performed by nj
s/p Robotic laparoscopic rectosigmoidectomy and VRAM flap for anal carcinoma (Suzette/Gustavo)
anemia s/p transfusion yesterday 7.7 this am. Trending H/H.
Postop mgmt per primary service/Dr. Bradford.
Nothing to add from obstetrics gyn standpoint.
Subjective Data
-
POD#5
Pt awake, alert.
Adequate pain mgmt.
Objective Data
-
Laboratory Results
04/01/25 04:15
Vital Signs
Temp Pulse Resp BP Pulse Ox
97.5 F 108 14 98/54 100
04/01/25 08:00 04/01/25 10:00 04/01/25 10:00 04/01/25 08:34 04/01/25 10:00
VSS Afeb
cor: regular rate
abd: soft, dressings dry
ext: SCDs in
--- NOTE | 2025-04-01 10:22 | PTCARENOTE ---
Await pending cbc at 1200. Follow up possible plan of cares with sales financial analyst and surgery. PT and ot in for am evaluation waiting for afternoon labs. Levophed presently at 2mcg/min. Continue follow up input output totals, PRETTY and NGT totals. Update
rounds and plan of cares. Continue supportive cares and emotional support. Update OBGYN surgery follow up. Continue ongoing rounds.
--- NOTE | 2025-04-01 11:03 | W.PN.CRS1 ---
Today's Communication / Plan
-
continue ngt
repeat hgb at noon
monitor flaps
maintain ngt until bowel function
Assessment/Plan
-
74 yo female s/p adjunctive chemo now presenting for operative management of anal cancer
POD #4 RAL APR (CRS), vaginal defect repair with BIANKA/BSO (MAIL ROOM CLERK) and VRAM flap (Plastics)
Acute blood loss anemia S/P TXA and 2 units prbcs in OR with 2 additional units PRBC's post op
Hgb 7.7 (8.2)
PRETTY outputs: about 315ml total
Afebrile, hypotensive and on pressors, HR wnl
NGT with low outputs, await bowel recovery prior to removal
Plan:
-Continue NPO with NGT in place to suction and await return of bowel function
-Ancef 1gm q8h per Dr. Chen (flaps).
-Dr. Chen notified of dusky appearance of flaps - he will see later today.
-Stoma nurse consulted for soma care
-IS while awake
-Follow PRETTY outputs
-OR path pending
-Scheduled tylneol IV and prn narcotics, hold NSAIDs given anemia and elevated Cr
-PPI for GI ppx
-OOB as able. PT/OT ordered.
- Lovenox held due to anemia. Continue SCD/TEDs for DVT prophylaxis.
-Appreciate medicine team following for medical management.
-Repeat hemoglobin at noon
Subjective Data
Procedure
03/28/2025- RAL APR (CRS), vaginal defect repair with BIANKA/BSO (MAIL ROOM CLERK) and VRAM flap (Plastics)
Subjective Data
Date of Service: April 01, 2025
Patient has no complaints. Her pain is controlled. She is overall very tired. Denies nausea or vomiting. Awaiting bowel function.
Objective Data
-
Vital Signs
Temp Pulse Resp BP Pulse Ox
97.5 F 108 14 98/54 100
04/01/25 08:00 04/01/25 10:00 04/01/25 10:00 04/01/25 08:34 04/01/25 10:00
Intake & Output
03/31/25 04/01/25 04/02/25
06:59 06:59 06:59
Intake Total 3461.0 / 3658.0 3553.0 / 3564.5 34.0 / 34.0
Output Total 2970 / 2970 3540 / 3640 300 / 300
Balance 491.0 / 688.0 13.0 / -75.5 -266.0 / -266.0
Intake:
Oral fluids 0 / 0
IV fluids (Total) 3371.0 / 3501.0 811.5 / 823.0 34.0 / 34.0
Lr 1,000 ml @ 100 mls/hr IV . 400 / 400
Q10H CARLOS Rx#:[id number]
Norepinephrine 591.0 / 621.0 411.5 / 423.0 34.0 / 34.0
Normosol-R/Plasmalyte-A 1,000 2780 / 2780
ml @ 120 mls/hr IV .Q8H20M CARLOS
Rx#:[id number]
IV piggybacks 1613.5 / 1613.5
Amount instilled into GI Tube ( 90 / 90
Total)
[place]field Sump 90 / 90
Blood Products 878 / 878
Fresh frozen plasma 603 / 603
Packed red blood cells 275 / 275
Blood Product Amount Infused ( 250 / 250
mL)
Packed Rbc Leukoreduced Unit 250 / 250
[id number]
Output:
Drain Output (Total) 330 / 330 415 / 415
Left Lower Abdomen Pierce- 210 / 210 265 / 265
Hoover
Right Lower Abdomen Pierce- 120 / 120 150 / 150
Hoover B
Urine, Rogers 2640 / 2640 3125 / 3225 300 / 300
Lab Results
04/01/25 04:15
Physical Exam
-
General: No Acute Distress and AOx3
Abdomen: Soft, Non Distended and Non Tender
Rectal: Other (surgical flaps a little dusky but warm)
Skin: Warm and Dry
Incision: Clear, Dry, Intact
[2025-04-01 11:38] LABS: Glucose - Point of Care 123 mg/dl (70-99)
[2025-04-01 12:07] LABS: Hematocrit 30.2 % (37.0-47.0); Hemoglobin 9.6 g/dL (12.0-16.0); Mean Corp Hgb Conc. 31.8 g/dL (33.0-37.0); Mean Corpuscular Volume 95.6 fL (81.0-99.0); Platelet Count 111 10^3/uL (130-400); Red Cell Dist. Width 16.9 % (11.5-14.5)
--- NOTE | 2025-04-01 12:24 | PN.CDI ---
CDI
- -
CDI:
Physician Documentation Request
Admit Date: 03/28/25 05:58
Dear Doctor Jenn,
Please review the following and provide your response in the progress notes.
Clinical Indicators:
Pt admitted for Anal Cancer s/p Robotic APR, BIANKA/BSO, Repair of Vaginal Defect, Perineal Reconstruction / Flap.
03/28 character impersonator in wound panel noted Stage 2 left buttock pressure injury.
Physician documentation of the type and location of wounds is required for compliant documentation. Based on the above clinical findings and your assessment, please provide the following in your progress note:
1. Location of the ulcer/wound, including laterality.
2. Type (etiology) of ulcer/wound:
Stage 2 left buttock Pressure injury POA
Left buttock non-pressure injury POA
Other
Use of terms such as suspected, likely, concern for, or probable (associated with a specific diagnosis that is being evaluated, monitored, or treated as if it exists) are acceptable and can be coded in the inpatient setting, when documented at the
time of discharge.
Thank you,
Taisha Casillas RN, BSN
CDI Specialist
[place] [facility]
Please use your independent medical judgment in providing your response.
*Source: National Pressure Ulcer Advisory Panel (NPUAP)
[2025-04-01 12:30] VITALS: BP 108/53
--- NOTE | 2025-04-01 12:49 | W.PN.HOSP.TC ---
Today's Communication/Plan
-
Repeat hemoglobin stabilizing
Continue IV antibiotics per surgery
Monitor NG tube output
Pain control
Wean O2 as tolerated
Replete electrolytes
Assessment / Plan
Assessment / Plan
General: Well Developed, Well Nourished and Obese
HEENT: Normocephalic, Atraumatic and Other (NG tube)
Respiratory: Rales and Non Labored Respirations
Cardiac: S1/S2 and Irregular Rhythm
Breast: Deferred by me
GI: Tender and Other (Drain at surgical site)
Genito-urinary: brewer
Musculoskeletal: No Clubbing and No Cyanosis, Anasarca noted
Skin: Warm
Neuro: Awake, Alert, Oriented and AO x 3
Psych: Calm
Impression:
Patient is a 74y F with PMH significant for A-Fib, CHF and anal cancer with recent recurrence who presented to on 03/28 for scheduled surgery for resection of recurrent malignancy. Patient underwent ureteroscopy with bilateral ureteral stents,
robotic APR, BIANKA / BSO, repair of vaginal defect and perineal reconstruction / flap on 03/28/25. She received 2 units PRBC and 1g TXA during the surgeries. Patient was successfully extubated post-op. She was on pressors post-op which were able to
be weaned, but have since been restarted at low dose to maintain adequate perfusion.
Medicine service was consulted for management of patient's multiple medical issues.
Assessment/plan:
Anal Cancer s/p Robotic APR, BIANKA/BSO, Repair of Vaginal Defect, Perineal Reconstruction / Flap
- Continue post-op care per surgical service(s).
- Continue with NG tube output.
- Pain control, DVT prophylaxis, etc per Surgery.
- IV Ancef per surgery recommendations.
Acute Blood Loss Anemia
Shock likely secondary to hemorrhagic and hypovolemia
Coagulopathy with thrombocytopenia
- Received 5 units PRBCs total thus far (and 1 g TXA) and 2units of FFP and 10mg of Vitamin K. Hemoglobin improved to 9.6.
- Currently on low-dose Levophed for BP support - wean as able.
- Follow H&H and transfuse additional blood products if needed. If persistent downtrend of hemoglobin may need to consider CT abdomen pelvis
- Platelets are starting to stabilize and uptrending. If persistent downtrend in platelets noted check fibrinogen, D-dimer. Low likelihood of DIC.
Hypothermia
- Mild hypothermia post-op. Likely combination of anesthesia, blood loss, etc.
- resolved
Acute hypoxic respiratory insufficiency
- Currently on 2 L of oxygen. Wean O2 as tolerated.
Chronic HFpEF
- Hypotensive at present as noted above.
- Status post 20 mg of IV Lasix yesterday.
- Continue to follow accurate I/Os, daily weights, etc.
- IV Lasix PRN for worsening edema, increased weight, etc - as BP allows.
- Patient on only twice weekly Lasix as an outpatient.
Persistent Atrial Fibrillation
- Stable. Amiodarone held pre-op.
- Lopressor IV at low dose with holding parameters for BP.
- Eliquis on hold for surgery, blood loss, etc.
DM-II
- Stable. Hold usual oral agents.
- Follow glucose and cover with SSI as needed.
- A1C was 5.7 on 03/26/25.
CKD III
- Stable. SCr is actually improved from prior baseline (1.3 compared to 1.6).
- Follow for changes with fluid shifts / BP changes / etc.
- Avoid nephrotoxic agents / hypotension / etc.
Hypothyroidism
- TFTs normal in February of this year.
- Resume usual T4 supplementation when OK for PO meds.
- Repeat TFTs given hypothermia- TSH wnl.
- Consider IV supplementation if patient remains NPO x several days.
Hypocalcemia
Hypomagnesemia
Hypophosphatemia
Hypokalemia
-Replete and monitor
Mild hypernatremia
- Monitor for now. If persistent uptrend will need to be started on hypotonix fluids
DVT Prophylaxis: lovenox sc
CODE STATUS: Full code
Anticipated Discharge: > 48 hours
Subjective/Interval History
-
Date of Service: April 01, 2025
states of feeling sore/stiff laying in bed
Objective Data
-
Labs:
Laboratory Results
04/01/25 04/01/25
04:15 11:24
WBC 8.4 11.0 H
Hgb 7.7 L 9.6 L D
Hct 23.9 L 30.2 L
Plt Count 83 L 111 L D
PT 23.0 H
INR 2.02
APTT 44.5 H
Sodium 147 H
Potassium 3.9
Chloride 125 H
Carbon Dioxide 21 L
BUN 15
Creatinine 1.0
Glucose 106 H
Calcium 6.6 L*
Vital Signs:
Vital Signs
Temp Pulse Resp BP Pulse Ox
97.8 F 102 24 108/53 98
04/01/25 12:07 04/01/25 12:30 04/01/25 12:30 04/01/25 12:30 04/01/25 12:30
I&O
03/31/25 04/01/25 04/02/25
06:59 06:59 06:59
Intake Total 3461.0 / 3658.0 3553.0 / 3564.5 119.0 / 119.0
Output Total 2970 / 2970 3540 / 3640 350 / 350
Balance 491.0 / 688.0 13.0 / -75.5 -231.0 / -231.0
Data Reviewed
-
Total Time Spent with Patient (in minutes): 58
[2025-04-01 12:59] VITALS: BP 107/63; PULSE 120
[2025-04-01 13:00] VITALS: BP 101/54; PULSE 124; O2SAT 100
--- NOTE | 2025-04-01 13:25 | PTCARENOTE ---
Patient working with pt/ot sitting on side of bed. Await assist for standing and chair. Legs were very weak as noted. Repositioned after side of bed. Continue wean of levophed. Update surgery and rod bending machine operator repeat lab trends, follow up with
hospitalist. Am labs as ordered. left quad ostomy now noted with small amount of brown liquid, patient stating can feel stomach rumbling, some noted gas pains relief with turning and repositioning in bed. Denies pain at rest. Continue incentive
spirometer and teaching as needed.
[2025-04-01 14:08] VITALS: BMI 38.5
--- NOTE | 2025-04-01 15:00 | W.PN.INTV ---
Today's Communication / Plan
Recommendations
- Wean Levophed as tolerated
- Serial hemoglobin
- Follow-up chest x-ray in a.m.
Assessment
-
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
status post robotic abdominoperineal resection, BIANKA/BSO, VRAM flap perineal reconstruction, 03/28. Patient admitted to ICU postoperatively given significant blood loss, hypotension requiring pressors
Conditions present prior to admission
History of CKD stage IIIb
Diabetes
Anal squamous cell cancer, stage III
Diagnosed November 2023
s/p chemotherapy/radiation at [place]
Recurrence of disease per pelvic MRI January 2025
Follows oncology ([facility])
Atrial fibrillation on Eliquis
Now off amiodarone Per cardiology, remains on beta-joseph (Shadi)
Moderate pulm hypertension, echo March 2025, stable compared to prior echo
With dilated RV, normal function, PA pressure 66
Normal EF
Moderate mitral stenosis
History of stroke 1994 and again 2022 per patient
Suspected sleep apnea
Overview 04/01: Patient currently with a MAP of 74, Levophed infusing at 2, Ringer lactate stopped. Saturating 100% on 2 L supplemental oxygen.
Assessment and plan:
#1. Shock, hemorrhagic related to blood loss and likely post-op vasoplegia
- Still requiring Levophed, wean as tolerated, down to 2 now
- s/p 4 units of PRBC
- Serial H&H. Hematocrit stable
- Discontinued IV Ringer lactate infusion
- If hypotension worsens, will consider abd/pelvis imaging. No visible bleeding noted.
#2. Coagulopathy, suspect transfusion related
- INR noted to be elevated, give vitamin K 10 mg IV 03/31
- Fresh frozen plasma, 2 units, IV calcium given for hypocalcemia 03/31
- If additional blood transfusion needed will give FFP and platelets along with PRBC
- Considering no obvious bleeding and stable Hct, will hold off additional FFPs for now, at risk of volume overload.
#3. S/p robotic abdominoperineal resection, BIANKA/BSO, repair of vaginal defect, VRAM flap perineal reconstruction, 03/28/25
- Complicated by blood loss, 1 L per OR records. TXA given intra-operatively
#4. Chronic HFpEF
- f/u CXR in AM
- Will add lasix once weaned off Levophed
- Saturating 100% on 2 l O2
#5. Chronic atrial fibrillation.
- Holding of metoprolol in view of hypotension. Eliquis on hold in view of bleeding.
- Continue telemetry monitoring
Other medical diagnoses:
- Hypothyroidism
- Diabetes mellitus
- h/o CKD. Cr normal this AM.
DVT prophylaxis: Subcu Lovenox ordered.
GI prophylaxis: Protonix
Critical Care time 40 mins -- The patient is admitted for acute critical illness for the treatment of vital organ failure and/or prevention of further life-threatening conditions. Total care includes time spent in review of history, physical exam,
medications, hemodynamic/ventilator parameters, laboratory data, imaging and discussion with house staff, pharmacy, respiratory therapy, manager insurance, and nursing.
Data:
Echo 03/25/2025: Normal biventricular function with mildly dilated RV, moderate mitral stenosis, severe TR, PA pressure 66
Subjective Dataa
Subjective Data
Date of Service:
Date of Service: April 01, 2025
Subjective:
Comfortably lying in bed in no acute distress.
Review of Systems
Genitourinary: Other (No new symptoms reported.)
Objective Data
Data Reviewed
Vital Signs / I&O / Oxygen:
Vital Signs
Temp Pulse Resp BP Pulse Ox
97.8 F 126 16 108/53 100
04/01/25 12:07 04/01/25 14:15 04/01/25 14:15 04/01/25 12:30 04/01/25 14:15
Intake and Output
03/31/25 04/01/25 04/02/25
06:59 06:59 06:59
Intake Total 3461.0 / 3658.0 3553.0 / 3564.5 130.2 / 130.2
Output Total 2970 / 2970 3540 / 3640 450 / 450
Balance 491.0 / 688.0 13.0 / -75.5 -319.8 / -319.8
SaO2 100
Nasal Cannula flow liters per 2
minute
Physical Exam
General: Comfortable
HEENT: Normocephalic and Anicteric
Cardiovascular: S1-S2, Regular Rhythm, Murmur (n), Rub (n) and Peripheral Edema (n)
Respiratory: Wheeze (n), Crackles (n), Rhonchi (n) and Non-Labored Respirations
GI: Soft, Non Distended, Non Tender and NG Tube (Ostomy, PRETTY drains)
Neurology: Awake, Alert and No Motor Deficits (Generally weak)
Skin: Good Color (Mild pallor), Jaundice (n) and Rash (n)
Labs/Micro/Reports
Lab Data
04/01/25 11:24
04/01/25 04:15
Laboratory Results
04/01/25
04:15
PT 23.0 H
INR 2.02
APTT 44.5 H
--- NOTE | 2025-04-01 15:39 | PN.CDI ---
CDI
- -
CDI:
Physician Documentation Request
Admit Date: 03/28/25 05:58
Dear Colorectal surgery team,
Please review the following and provide your response in the progress notes.
Clinical Indicators:
Pt admitted for Anal Cancer s/p Robotic APR, BIANKA/BSO, Repair of Vaginal Defect, Perineal Reconstruction / Flap.
03/28 chief construction inspector in wound panel noted Stage 2 left buttock pressure injury.
Physician documentation of the type and location of wounds is required for compliant documentation. Based on the above clinical findings and your assessment, please provide the following in your progress note:
1. Location of the ulcer/wound, including laterality.
2. Type (etiology) of ulcer/wound:
Stage 2 left buttock Pressure injury POA
Left buttock non-pressure injury POA
Other
Use of terms such as suspected, likely, concern for, or probable (associated with a specific diagnosis that is being evaluated, monitored, or treated as if it exists) are acceptable and can be coded in the inpatient setting, when documented at the
time of discharge.
Thank you,
Taisha Casillas RN, BSN
CDI Specialist
[place] [facility]
Please use your independent medical judgment in providing your response.
*Source: National Pressure Ulcer Advisory Panel (NPUAP)
--- NOTE | 2025-04-01 16:00 | WOUNDNOTE ---
YAZMIN RN NOTE: Appliance changed and teaching done with patient. Stoma pale pink, slightly budded, for small amt of drainage, no stool output, has NGT in use. Peristomal skin intact. Stoma close to midline dressing, cut away edge of dressing to remove
old wafer and apply new wafer. Answered all questions and will follow toward end of week.
--- NOTE | 2025-04-01 16:20 | W.PN.PLAS ---
Progress Note
Subjective Data
Alerted to color changes of flap reconstruction, remains warm
Objective Data
Vital Signs
Temp Pulse Resp BP Pulse Ox
97.8 F 126 16 108/53 100
04/01/25 16:09 04/01/25 14:15 04/01/25 14:15 04/01/25 12:30 04/01/25 14:15
Intake and Output
03/31/25 04/01/25 04/02/25
06:59 06:59 06:59
Intake Total 3461.0 / 3658.0 3553.0 / 3564.5 130.2 / 130.2
Output Total 2970 / 2970 3540 / 3640 450 / 450
Balance 491.0 / 688.0 13.0 / -75.5 -319.8 / -319.8
Intake:
Oral fluids 0 / 0
IV fluids (Total) 3371.0 / 3501.0 811.5 / 823.0 60.2 / 60.2
Lr 1,000 ml @ 100 mls/hr IV . 400 / 400
Q10H CARLOS Rx#:[id number]
Norepinephrine 591.0 / 621.0 411.5 / 423.0 60.2 / 60.2
Normosol-R/Plasmalyte-A 1,000 2780 / 2780
ml @ 120 mls/hr IV .Q8H20M CARLOS
Rx#:[id number]
IV piggybacks 1613.5 / 1613.5
Amount instilled into Drain ( 70 / 70
Total)
Left Lower Abdomen Pierce- 50 / 50
Hoover
Right Lower Abdomen Pierce- 20 / 20
Hoover B
Amount instilled into GI Tube ( 90 / 90
Total)
[place] Sump 90 / 90
Blood Products 878 / 878
Fresh frozen plasma 603 / 603
Packed red blood cells 275 / 275
Blood Product Amount Infused ( 250 / 250
mL)
Packed Rbc Leukoreduced Unit 250 / 250
[id number]
Output:
Drain Output (Total) 330 / 330 415 / 415 50 / 50
Left Lower Abdomen Pierce- 210 / 210 265 / 265 50 / 50
Hoover
Right Lower Abdomen Pierce- 120 / 120 150 / 150
Hoover B
Urine, Rogers 2640 / 2640 3125 / 3225 400 / 400
Physical exam:
No acute distress
No increased work of breathing
Alert and interactive
Abdominal incision dressing in place, PRETTY drain serosanguineous with appropriate output
Flap warm to touch, not tense
Increased demarcation of the skin, possible superficial epidermal lysis
Pinprick without dark bleeding
Lab Results
04/01/25 11:24
04/01/25 04:15
Wound Documentation
03/31/25 12:46 Wound Note by Radha Kelly
[facility] RN note: Patient s/p ostomy surgery for anal cancer, Robotic APR with repair of vaginal defect, BIANKA/BSO and VRAM flap perineal reconstruction.
See H&P for complete history.
PMH: DM, A Fib, CHF, HTN, obesity, UTI, stress incontinence and frequency, stroke and neuropathy.
Ostomy location and type: Colostomy LUQ, stoma pale pink, no gas and scant output. Patient remains NPO with NGT.
Planned with patient ostomy pouch emptying and changing appliance next few days. Gave patient ostomy folder and encouraged patient and family to review. Can answer any questions at teaching session with family. Asked patient to coordinate with her
children.
Roddy wafer # [id number]
Roddy pouch # [id number]
Ostomy supplies ordered from [facility] and asked nurse to place at bedside.
Turned patient, sacrum blanchable red, perineal dressing with ABD intact. Heels are blanchable and intact. Repositioned patient to L semi side lying position, pillows in use under calves and arms.
Note to case management: VN services recommended for ostomy teaching.
Nursing care plan updated, will follow as needed.
Initialized on 03/31/25 12:46 - END OF NOTE
Assessment / Plan
Status post myocutaneous flap reconstruction after APR
No prolonged direct sitting
Pressure offloading to the flap
Strip and record PRETTY drain output
Flap now with signs of superficial skin slough. Flap remains warm to touch indicative of sufficient arterial inflow. Possibly venous congestion contributing however flap is not tense and pinprick did not elucidate dark bleeding
Will continue to follow. May require debridement versus wound care. Should the patient develop signs of sepsis, rising white count, will consider early intervention. Otherwise we will manage conservatively
[2025-04-01 17:30] LABS: Glucose - Point of Care 111 mg/dl (70-99)
[2025-04-01 17:35] VITALS: BP 109/53
[2025-04-01] MEDS: LOVENOX 40 MG SC (18:21)
--- NOTE | 2025-04-01 21:30 | PTCARENOTE ---
Levo gtt increased to 2 mcg/min per protocol.
[2025-04-02] MEDS: NOVOLOG FLEXPEN-MODERATE RESISTANCE SC ×5 (00:02→23:45)
[2025-04-02 00:03] LABS: Glucose - Point of Care 115 mg/dl (70-99)
[2025-04-02] MEDS: ANCEF 5 IV ×4 (00:24→23:45)
[2025-04-02] MEDS: LEVOPHED 250 IV (00:24)
[2025-04-02] MEDS: DILAUDID 0.25 MG IV ×2 (03:28→22:27)
[2025-04-02 05:10] VITALS: BMI 38.4
[2025-04-02 05:15] LABS: INR 1.29; PT 16.4 Sec (11.4-14.6)
[2025-04-02 05:16] LABS: APTT 29.3 Sec (23.4-35.0)
[2025-04-02 05:18] LABS: Hematocrit 31.6 % (37.0-47.0); Hemoglobin 9.9 g/dL (12.0-16.0); Mean Corp Hgb Conc. 31.3 g/dL (33.0-37.0); Mean Corpuscular Volume 96.0 fL (81.0-99.0); Nucleated Red Blood Cells % 0 %; Platelet Count 130 10^3/uL (130-400); Red Cell Dist. Width 16.9 % (11.5-14.5)
--- NOTE | 2025-04-02 05:30 | PTCARENOTE ---
Pt c/o abdominal pain. PRN dose of dilaudid administered per order.
[2025-04-02 05:32] LABS: Blood Urea Nitrogen 18 mg/dl (7-17); Calcium 8.7 mg/dl (8.4-10.2); Carbon Dioxide 23 mmol/L (22-30); Chloride 119 mmol/L (98-107); Estimated Creatinine Clearance 39 ml/min; Glucose 115 mg/dl (70-99); Magnesium 2.0 mg/dl (1.6-2.3); Potassium 4.8 mmol/L (3.5-5.1); Sodium 147 mmol/L (135-145); eGFR 42.88
--- NOTE | 2025-04-02 06:00 | PTCARENOTE ---
Levo gtt increased to 3 mcg/min per protocol.
[2025-04-02] MEDS: NSS (PRESERVATIVE FREE) 10 ML IV (07:23)
[2025-04-02] MEDS: PROTONIX IV 40 MG IV (07:23)
[2025-04-02] MEDS: MYCOSTATIN CREAM 1 APPLIC TOPICAL ×2 (07:24→19:29)
[2025-04-02] MEDS: DESENEX/MITRAZOL/ZEASORB 1 APPLIC TOPICAL ×2 (07:24→19:29)
[2025-04-02 07:39] VITALS: BP 93/51
[2025-04-02] MEDS: LR 500 IV ×2 (08:10→10:20)
--- NOTE | 2025-04-02 08:22 | W.PN.CRS1 ---
Today's Communication / Plan
-
ngt clamping trial
continue other care
Assessment/Plan
-
74 yo female s/p adjunctive chemo now presenting for operative management of anal cancer
POD #5 RAL APR (CRS), vaginal defect repair with BIANKA/BSO (FERMENTING CELLARS RECEIVER) and VRAM flap (Plastics)
Acute blood loss anemia S/P TXA and 2 units prbcs in OR with 2 additional units PRBC's post op
Hgb 9.9 (7.7)
PRETTY outputs: about 288ml total
Afebrile, hypotensive and on pressors, HR wnl
Plan:
-NGT clamping trial. Okay for clear liquids if removed.
-Ancef 1gm q8h per Dr. Chen (flaps).
-Dr. Chen notified of dusky appearance of flaps again today - he will see today
-Stoma nurse for stoma care
-IS while awake
-Follow PRETTY outputs
-OR path pending
-Scheduled Tylenol IV and prn narcotics, hold NSAIDs given anemia and elevated Cr
-PPI for GI ppx
-OOB as able. PT/OT ordered.
- Lovenox held due to anemia. Continue SCD/TEDs for DVT prophylaxis.
-Appreciate medicine team following for medical management.
Subjective Data
Procedure
03/28/2025- RAL APR (CRS), vaginal defect repair with BIANKA/BSO (FERMENTING CELLARS RECEIVER) and VRAM flap (Plastics)
Subjective Data
Date of Service: April 02, 2025
Patient states she having some function. Denies nausea or vomiting. She is still on levophed. Pain is controlled.
Objective Data
-
Vital Signs
Temp Pulse Resp BP Pulse Ox
97.9 F 116 22 93/51 98
04/02/25 07:32 04/02/25 07:39 04/02/25 07:39 04/02/25 07:39 04/02/25 07:39
Intake & Output
04/01/25 04/02/25 04/03/25
06:59 06:59 06:59
Intake Total 3553.0 / 3564.5 494.1 / 515.6 21.5 / 21.5
Output Total 3540 / 3640 1582.0 / 1682.0 100 / 100
Balance 13.0 / -75.5 -1087.9 / -1166.4 -78.5 / -78.5
Intake:
IV fluids (Total) 811.5 / 823.0 154.1 / 165.6 11.5 / 11.5
Lr 1,000 ml @ 100 mls/hr IV . 400 / 400
Q10H CARLOS Rx#:[id number]
Norepinephrine 411.5 / 423.0 154.1 / 165.6 11.5 / 11.5
IV piggybacks 1613.5 / 1613.5 120 / 130 10 / 10
Amount instilled into Drain ( 70 / 70
Total)
Left Lower Abdomen Pierce- 50 / 50
Hoover
Right Lower Abdomen Pierce- 20 / 20
Hoover B
Amount instilled into GI Tube ( 150 / 150
Total)
[place] Sump 150 / 150
Blood Products 878 / 878
Fresh frozen plasma 603 / 603
Packed red blood cells 275 / 275
Blood Product Amount Infused ( 250 / 250
mL)
Packed Rbc Leukoreduced Unit 250 / 250
[id number]
Output:
Liquid stool amount 50 / 50
Colostomy 50 / 50
Drain Output (Total) 415 / 415 288 / 288
Left Lower Abdomen Pierce- 265 / 265 235 / 235
Hoover
Right Lower Abdomen Pierce- 150 / 150 53 / 53
Hoover B
Gastrointestinal tube output ( 100 / 100
Total)
[place] Sump 100 / 100
Urine, Rogers 3125 / 3225 1144.0 / 1244.0 100 /
Lab Results
04/02/25 04:42
04/02/25 04:42
Physical Exam
-
General: No Acute Distress and AOx3
Abdomen: Soft, Non Distended and Non Tender
Wound: Dressing in Place
--- NOTE | 2025-04-02 08:35 | PTCARENOTE ---
Follow up assessment review with stereotype molder team, GI/surgery at bedside. Update am labs, follow up bmp and chest xray. Continue follow up input and output trends, ivf challenge and evaluate. Continue supportive cares and teaching. NGT clamped @0800
follow gi assessment and residual as ordered. Will update am rounds with critical care team.
--- NOTE | 2025-04-02 10:23 | PTCARENOTE ---
Update with hospitalist team, update critical care team in rounds. IVF challenge continues. Follow up input output totals and trends. NGT remains clamped at this time no noted nausea, pain, emesis or distention will follow up totals at 1200.
Continue with critical care trends.
[2025-04-02 12:04] VITALS: BP 108/58
--- NOTE | 2025-04-02 12:16 | W.PN.HOSP.TC ---
Today's Communication/Plan
-
LR IVF bolus
trend cbc
NGT clamping trial
OOB/PT
Assessment / Plan
Assessment / Plan
General: Well Developed, Well Nourished and Obese
HEENT: Normocephalic, Atraumatic and Other (NG tube)
Respiratory: Rales and Non Labored Respirations
Cardiac: S1/S2 and Irregular Rhythm
Breast: Deferred by me
GI: Tender and Other (Drain at surgical site)
Genito-urinary: brewer
Musculoskeletal: No Clubbing and No Cyanosis, Anasarca noted
Skin: Warm
Neuro: Awake, Alert, Oriented and AO x 3
Psych: Calm
Impression:
Patient is a 74y F with PMH significant for A-Fib, CHF and anal cancer with recent recurrence who presented to on 03/28 for scheduled surgery for resection of recurrent malignancy. Patient underwent ureteroscopy with bilateral ureteral stents,
robotic APR, BIANKA / BSO, repair of vaginal defect and perineal reconstruction / flap on 03/28/25. She received 2 units PRBC and 1g TXA during the surgeries. Patient was successfully extubated post-op. She was on pressors post-op which were able to
be weaned, but have since been restarted at low dose to maintain adequate perfusion.
Medicine service was consulted for management of patient's multiple medical issues.
Assessment/plan:
Anal Cancer s/p Robotic APR, BIANKA/BSO, Repair of Vaginal Defect, Perineal Reconstruction / Flap
- Continue post-op care per surgical service(s). Pain control.
- Continue with NG tube. NGT clamping trial.
- Pain control, DVT prophylaxis, etc per Surgery.
- IV Ancef per surgery recommendations.
Acute Blood Loss Anemia
Shock likely secondary to hemorrhagic and hypovolemia
Coagulopathy with thrombocytopenia
- Received 5 units PRBCs total thus far (and 1 g TXA) and 2units of FFP and 10mg of Vitamin K. Hemoglobin improved to 9.9.
- Currently on low-dose Levophed for BP support - wean as able.
- Follow H&H and transfuse additional blood products if needed. If persistent downtrend of hemoglobin may need to consider CT abdomen pelvis
- Platelets are starting to stabilize. Today at 130k improved. If persistent downtrend in platelets noted check fibrinogen, D-dimer. Low likelihood of DIC.
Hypothermia
- Mild hypothermia post-op. Likely combination of anesthesia, blood loss, etc.
- resolved
Acute hypoxic respiratory insufficiency
- Currently on 2 L of oxygen. Wean O2 as tolerated.
Chronic HFpEF
- Hypotensive at present as noted above.
- Status post 20 mg of IV Lasix earlier in the week.
- Continue to follow accurate I/Os, daily weights, etc.
- IV Lasix PRN for worsening edema, increased weight, etc - as BP allows.
- Patient on only twice weekly Lasix as an outpatient.
Persistent Atrial Fibrillation
- Stable. Amiodarone held pre-op.
- Lopressor IV at low dose with holding parameters for BP.
- Eliquis on hold for surgery, blood loss, etc.
DM-II
- Stable. Hold usual oral agents.
- Follow glucose and cover with SSI as needed.
- A1C was 5.7 on 03/26/25.
CKD III
- Stable. SCr is actually improved from prior baseline (1.3 compared to 1.6).
- Follow for changes with fluid shifts / BP changes / etc.
- Avoid nephrotoxic agents / hypotension / etc.
Hypothyroidism
- TFTs normal in February of this year.
- Resume usual T4 supplementation when OK for PO meds.
- Repeat TFTs given hypothermia- TSH wnl.
- Consider IV supplementation if patient remains NPO x several days.
Hypocalcemia
Hypomagnesemia
Hypophosphatemia
Hypokalemia
-Replete and monitor
Mild hypernatremia
- Monitor for now. If persistent uptrend will need to be started on hypotonic fluids
DVT Prophylaxis: lovenox sc
CODE STATUS: Full code
Anticipated Discharge: > 48 hours
Subjective/Interval History
-
Date of Service: April 02, 2025
remains on low dose levophed
Objective Data
-
Labs:
Laboratory Results
04/02/25
04:42
WBC 10.6
Hgb 9.9 L
Hct 31.6 L
Plt Count 130
PT 16.4 H
INR 1.29
APTT 29.3
Sodium 147 H
Potassium 4.8
Chloride 119 H
Carbon Dioxide 23
BUN 18 H
Creatinine 1.3 H
Glucose 115 H
Calcium 8.7 D
Vital Signs:
Vital Signs
Temp Pulse Resp BP Pulse Ox
97.4 F 119 21 108/58 100
04/02/25 11:15 04/02/25 12:04 04/02/25 12:04 04/02/25 12:04 04/02/25 12:04
I&O
04/01/25 04/02/25 04/03/25
06:59 06:59 06:59
Intake Total 3553.0 / 3564.5 494.1 / 515.6 1079.0 / 1079.0
Output Total 3540 / 3640 1582.0 / 1682.0 440 / 440
Balance 13.0 / -75.5 -1087.9 / -1166.4 639.0 / 639.0
[2025-04-02 12:36] LABS: Glucose - Point of Care 107 mg/dl (70-99)
--- NOTE | 2025-04-02 12:48 | PTCARENOTE ---
NGT with 150ml mucoid green drainage, 50ml via ostomy, 80ml left PRETTY as noted. NGT to lws will update GI. Continue follow up with gi and agricultural extension agent. Continue follow up inpuut output totals and fluid challenges as per agricultural extension agent. Levophed remains
unchanged.
--- NOTE | 2025-04-02 13:08 | W.PN.PLAS ---
Progress Note
Subjective Data
No complaints, some pain but controlled
Objective Data
Vital Signs
Temp Pulse Resp BP Pulse Ox
97.4 F 119 21 108/58 100
04/02/25 11:15 04/02/25 12:04 04/02/25 12:04 04/02/25 12:04 04/02/25 12:04
Intake and Output
04/01/25 04/02/25 04/03/25
06:59 06:59 06:59
Intake Total 3553.0 / 3564.5 494.1 / 515.6 1079.0 / 1079.0
Output Total 3540 / 3640 1582.0 / 1682.0 440 / 440
Balance 13.0 / -75.5 -1087.9 / -1166.4 639.0 / 639.0
Intake:
IV fluids (Total) 811.5 / 823.0 154.1 / 165.6 69.0 / 69.0
Lr 1,000 ml @ 100 mls/hr IV . 400 / 400
Q10H CARLOS Rx#:[id number]
Norepinephrine 411.5 / 423.0 154.1 / 165.6 69.0 / 69.0
IV piggybacks 1613.5 / 1613.5 120 / 130 1010 / 1010
Amount instilled into Drain ( 70 / 70
Total)
Left Lower Abdomen Pierce- 50 / 50
Hoover
Right Lower Abdomen Pierce- 20 / 20
Hoover B
Amount instilled into GI Tube ( 150 / 150
Total)
[place] Sump 150 / 150
Blood Products 878 / 878
Fresh frozen plasma 603 / 603
Packed red blood cells 275 / 275
Blood Product Amount Infused ( 250 / 250
mL)
Packed Rbc Leukoreduced Unit 250 / 250
[id number]
Output:
Liquid stool amount 50 / 50
Colostomy 50 / 50
Drain Output (Total) 415 / 415 288 / 288 90 /
Left Lower Abdomen Pierce- 265 / 265 235 / 235 90 / 90
Hoover
Right Lower Abdomen Pierce- 150 / 150 53 / 53
Hoover B
Gastrointestinal tube output ( 100 / 100
Total)
[place] Sump 100 / 100
Urine, Rogers 3125 / 3225 1144.0 / 1244.0 350 / 350
Physical exam:
No acute distress
No increased work of breathing
Alert and interactive
Abdominal incision dressing in place, PRETTY drain serosanguineous with appropriate output
Not tense
Perhaps cool but indeterminate
Increased superficial epidermal lysis
Pinprick without dark bleeding
Lab Results
04/02/25 04:42
04/02/25 04:42
Wound Documentation
04/01/25 16:00 (created 04/01/25 16:19) Wound Note by Radha Kelly
WON RN NOTE: Appliance changed and teaching done with patient. Stoma pale pink, slightly budded, for small amt of drainage, no stool output, has NGT in use. Peristomal skin intact. Stoma close to midline dressing, cut away edge of dressing to remove
old wafer and apply new wafer. Answered all questions and will follow toward end of week.
Initialized on 04/01/25 16:19 - END OF NOTE
Assessment / Plan
Status post myocutaneous flap reconstruction after APR
No prolonged direct sitting
Pressure offloading to the flap
Strip and record PRETTY drain output
Flap with signs of superficial skin slough. Considering early debridement for assessment of viability. No signs of sepsis, no leukocytosis.
Will continue to follow.
[2025-04-02] MEDS: ALBUMIN 5% 250 IV ×2 (13:12→13:50)
--- NOTE | 2025-04-02 13:19 | W.PN.INTV ---
Today's Communication / Plan
Recommendations
- LR 1 ltr bolus
- Give Albumin 2 bags
- EKG
- Wean Levophed as tolerated
- Amiodarone 150 mg followed by infusion
- Cardiology consult
Assessment
-
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
status post robotic abdominoperineal resection, BIANKA/BSO, VRAM flap perineal reconstruction, 03/28. Patient admitted to ICU postoperatively given significant blood loss, hypotension requiring pressors
Conditions present prior to admission
History of CKD stage IIIb
Diabetes
Anal squamous cell cancer, stage III
Diagnosed November 2023
s/p chemotherapy/radiation at [place]
Recurrence of disease per pelvic MRI January 2025
Follows oncology ([facility])
Atrial fibrillation on Eliquis
Now off amiodarone Per cardiology, remains on beta-joseph (Shadi)
Moderate pulm hypertension, echo March 2025, stable compared to prior echo
With dilated RV, normal function, PA pressure 66
Normal EF
Moderate mitral stenosis
History of stroke 1994 and again 2022 per patient
Suspected sleep apnea
Overview 04/02: Patient currently with a MAP of 80, Levophed infusing at 3. Saturating 100% on 2 L supplemental oxygen.
Assessment and plan:
#1. Shock, hemorrhagic related to blood loss and likely post-op vasoplegia
- Still requiring Levophed, wean as tolerated, @ 3 now
- s/p 4 units of PRBC
- Serial H&H. Hematocrit stable
- Suspect RVR with A fib also contributing to hypotension and difficulty weaning of Levophed.
#2. Coagulopathy, suspect transfusion related
- INR noted to be elevated, give vitamin K 10 mg IV 03/31
- Fresh frozen plasma, 2 units, IV calcium given for hypocalcemia 03/31
- If additional blood transfusion needed will give FFP and platelets along with PRBC
- Considering no obvious bleeding and stable Hct, will hold off additional FFPs for now, at risk of volume overload.
#3. S/p robotic abdominoperineal resection, BIANKA/BSO, repair of vaginal defect, VRAM flap perineal reconstruction, 03/28/25
- Complicated by blood loss, 1 L per OR records. TXA given intra-operatively
#4. Chronic HFpEF
- f/u CXR stable
- lasix continues to be on hold
- LR x 1 ltr given for low urine out put and suspect intra-vascular hypovolemia.
#5. Chronic atrial fibrillation with RVR, sick sinus syndrome
- Holding metoprolol in view of hypotension. Eliquis on hold in view of bleeding.
- Continue telemetry monitoring
- Amiodarone bolus and infusion, Cardiology consult
#6. Mild OSMANY
- Decreased urine out put, dry mouth, also hypotensive, suspect intra-vascular hypovolemia
- LR x 1 ltr
- Also hypoalbuminemic, will give 2 bags x 1.
- Labs in AM
Other medical diagnoses:
- Hypothyroidism
- Diabetes mellitus
DVT prophylaxis: Subcu Lovenox ordered.
GI prophylaxis: Protonix
Critical Care time 40 mins -- The patient is admitted for acute critical illness for the treatment of vital organ failure and/or prevention of further life-threatening conditions. Total care includes time spent in review of history, physical exam,
medications, hemodynamic/ventilator parameters, laboratory data, imaging and discussion with house staff, pharmacy, respiratory therapy, editor map, and nursing.
Data:
Echo 03/25/2025: Normal biventricular function with mildly dilated RV, moderate mitral stenosis, severe TR, PA pressure 66
Subjective Dataa
Subjective Data
Date of Service:
Date of Service: April 02, 2025
Subjective:
Comfortably lying in bed, no distress
Review of Systems
Genitourinary: Other (No new symptoms reported. )
Objective Data
Data Reviewed
Vital Signs / I&O / Oxygen:
Vital Signs
Temp Pulse Resp BP Pulse Ox
97.4 F 119 21 108/58 100
04/02/25 11:15 04/02/25 12:04 04/02/25 12:04 04/02/25 12:04 04/02/25 12:04
Intake and Output
04/01/25 04/02/25 04/03/25
06:59 06:59 06:59
Intake Total 3553.0 / 3564.5 494.1 / 515.6 1079.0 / 1079.0
Output Total 3540 / 3640 1582.0 / 1682.0 440 / 440
Balance 13.0 / -75.5 -1087.9 / -1166.4 639.0 / 639.0
SaO2 100
Nasal Cannula flow liters per 2
minute
Physical Exam
General: Comfortable
HEENT: Normocephalic and Anicteric
Cardiovascular: S1-S2, Regular Rhythm, Murmur (n) and Rub (n)
Respiratory: Wheeze (n), Crackles (n), Rhonchi (n) and Non-Labored Respirations
GI: Soft, Non Distended, Non Tender and NG Tube (Ostomy, PRETTY drains)
Neurology: Awake, Alert and No Motor Deficits (Generally weak)
Skin: Good Color (Mild pallor), Jaundice (n) and Rash (n)
Labs/Micro/Reports
Lab Data
04/02/25 04:42
04/02/25 04:42
Laboratory Results
04/02/25
04:42
PT 16.4 H
INR 1.29
APTT 29.3
[2025-04-02] MEDS: CORDARONE 103 MG IV (13:50)
--- NOTE | 2025-04-02 15:27 | W.PN.OBG.DWH ---
Today's Communication / Plan
-
Cont present mgmt per primary service.
Assessment/Plan
-
A/P: POD#5 Robotic assisted TLHBSO performed along with rectosigmoidectomy and VRAM flap by CRS and plastic surgery services.
Nothing to add from engineering design supervisor standpoint.
Continue care per primary service.
Subjective Data
-
POD# 5 s/p RA TLH BSO (in addition to rectosigmoisdectomy and VRAM flap)
Feeling better. Adequate pain relief.
Objective Data
-
Laboratory Results
04/02/25 04:42
04/02/25 04:42
Vital Signs
Temp Pulse Resp BP Pulse Ox
98.1 F 119 14 108/58 100
04/02/25 15:14 04/02/25 15:00 04/02/25 15:00 04/02/25 12:04 04/02/25 15:00
VSS afeb
Cor reg
Pulm: clear
abd: soft NDNT dressings with minimal staining, unchanged from yesterday.
ext edema much improved, minimal, no calf pain
[2025-04-02 15:41] VITALS: BP 104/58
--- NOTE | 2025-04-02 15:45 | PTCARENOTE ---
Addendum entered by Andrade Thomas RN 04/02/25 15:50:
levophed wean as per titration and taper protocols.
Original Note:
OBGYN team at bedside dressing assessment. Follow up albumin and amiodarone bolus. Amiodarone drip started as per protocol. Follow up ecg trends on chart. PM cares, back rub and follow up oral cares as per unit based protocols. Levophed wean will
follow via titration and fuad
--- NOTE | 2025-04-02 16:07 | CM ---
Transferred back to ICU. Discharge POC: Therapy rec for SNF. [employer] list provided.
--- NOTE | 2025-04-02 16:11 | CM ---
Discharge POC: Therapy rec for SNF. [employer] list provided.
[2025-04-02] MEDS: LOVENOX 40 MG SC (18:14)
[2025-04-02 18:15] LABS: Glucose - Point of Care 133 mg/dl (70-99)
[2025-04-02 18:25] VITALS: BP 106/64
--- NOTE | 2025-04-02 19:30 | PTCARENOTE ---
Patient received lying in bed with eyes closed, respirations nonlabored. She rouses easily to name called. See fabric worker foreman charted on worklist flowsheet. A&Ox4, flat affect and poor eye contact. NGT via right nare to LIS. Afebrile. Generalized
abdominal discomfort 10/14. Midline abdominal incision with aquacell dressing intact with small amount of old drainage. Left PRETTY drain to bulb suction with serosanguinous drainage, right PRETTY drain with more serous drainage. Colostomy LUQ pink, moist
and budded, no stool noted. Good bowel sounds t/o left abdomen, t/o right abdomen bowel sounds very hypoactive. Right SC portacath accessed, site WDL. Left Midline accessed, site WDL. Right radial Ayana site WDL, leveled and zeroed prn. O2 at 2L/nc,
BUL clear anteriorly, right base clear, left base diminished with fine crackles. S1S2 tachycardic, Afib on CM. Generalized anasarca 2+, right arm edema 3+ and elevated on pillow, left arm edema 2+, BLE edema 2+. Bed in low and locked position, call
chaves within reach.
[2025-04-02] MEDS: CHLORASEPTIC/SORE THROAT SPRAY 1 SPRAY PO (22:32)
--- NOTE | 2025-04-02 23:30 | PTCARENOTE ---
No marked change in patient assessment except noted UO low. SBP 90s but MAP > 65. Prn pain medication effective. Afebrile. Appears to be sleeping comfortably when undisturbed.
--- NOTE | 2025-04-02 23:50 | PTCARENOTE ---
Esmer KUMAR notified of patient's lower UO, 30cc/hr over the last 2 hours. Updated with patient clinical status. New orders received. IVF bolus given per order.
[2025-04-02 23:53] LABS: Glucose - Point of Care 143 mg/dl (70-99)
[2025-04-03] VITALS (35 sets, daily range): BP systolic 43–125; BP diastolic 24–94; BMI 40.1
[2025-04-03] MEDS: LR 1000 IV ×3 (00:08→21:39)
[2025-04-03] MEDS: LEVOPHED 250 IV (01:58)
--- NOTE | 2025-04-03 03:20 | PTCARENOTE ---
UO remains approx 25cc/hr. Esmer KUMAR notified. Order received for 500cc IVF bolus, given.
[2025-04-03] MEDS: LR 500 IV (03:23)
[2025-04-03] MEDS: DILAUDID 0.25 MG IV (04:08)
[2025-04-03 04:41] LABS: Hematocrit 29.8 % (37.0-47.0); Hemoglobin 9.2 g/dL (12.0-16.0); Mean Corp Hgb Conc. 30.9 g/dL (33.0-37.0); Mean Corpuscular Volume 98.0 fL (81.0-99.0); Nucleated Red Blood Cells % 0.8 %; Platelet Count 107 10^3/uL (130-400); Red Cell Dist. Width 16.5 % (11.5-14.5)
[2025-04-03 05:10] LABS: Blood Urea Nitrogen 16 mg/dl (7-17); Calcium 8.2 mg/dl (8.4-10.2); Carbon Dioxide 25 mmol/L (22-30); Chloride 117 mmol/L (98-107); Estimated Creatinine Clearance 39 ml/min; Glucose 146 mg/dl (70-99); Magnesium 1.8 mg/dl (1.6-2.3); Potassium 4.6 mmol/L (3.5-5.1); Sodium 147 mmol/L (135-145); eGFR 42.88
[2025-04-03] MEDS: NOVOLOG FLEXPEN-MODERATE RESISTANCE SC ×2 (06:00→13:52)
--- NOTE | 2025-04-03 06:30 | PTCARENOTE ---
OGT clamped. Patient is tolerating ice chips with minimal drainage from OGT.
--- NOTE | 2025-04-03 07:20 | PTCARENOTE ---
Report given verbally to oncoming shift, Brisa CRENSHAW. Bedside rounds completed. Questions answered.
--- NOTE | 2025-04-03 08:08 | W.PN.CRS1 ---
Today's Communication / Plan
-
OOB
continue current care
Assessment/Plan
-
74 yo female s/p adjunctive chemo now presenting for operative management of anal cancer
POD #6 RAL APR (CRS), vaginal defect repair with BIANKA/BSO (LAMINATOR PREFORMS) and VRAM flap (Plastics)
Acute blood loss anemia S/P TXA and 2 units prbcs in OR with 2 additional units PRBC's post op
Hgb 9.2 (9.9)
PRETTY outputs: about 683ml total
Afebrile, hypotensive and on pressors, HR wnl
Plan:
-NGT clamping trial again once the stoma starts producing flatus/stool.
-Ancef 1gm q8h per Dr. Chen (flaps).
-Dr. Chen notified of dusky appearance of flaps again today - he will see today
-Stoma nurse for stoma care
-IS while awake
-Follow PRETTY outputs
-OR path pending
-Scheduled Tylenol IV and prn narcotics, hold NSAIDs given anemia and elevated Cr
-PPI for GI ppx
-OOB as able. PT/OT ordered.
- Lovenox held due to anemia. Continue SCD/TEDs for DVT prophylaxis.
-Appreciate medicine team following for medical management.
Subjective Data
Procedure
03/28/2025- RAL APR (CRS), vaginal defect repair with BIANKA/BSO (LAMINATOR PREFORMS) and VRAM flap (Plastics)
Subjective Data
Date of Service: April 03, 2025
Patient states she is in 4/10 pain. She was nauseous yesterday when we tried the clamping trial. She was out of bed yesterday.
Objective Data
-
Vital Signs
Temp Pulse Resp BP Pulse Ox
97.5 F 108 13 106/64 100
04/03/25 00:00 04/03/25 07:00 04/03/25 07:00 04/02/25 18:25 04/03/25 07:00
Intake & Output
04/02/25 04/03/25 04/04/25
06:59 06:59 06:59
Intake Total 494.1 / 515.6 3949.1 / 3949.1
Output Total 1582.0 / 1682.0 2037
Balance -1087.9 / -1166.4 191.1 / 1910.1
Intake:
Oral fluids 60 / 60
IV fluids (Total) 154.1 / 165.6 2216.1 / 2216.1
Amiodarone. 400.1 / 400.1
KVO NS 100 / 100
LR BOLUS 1500 / 1500
Norepinephrine 154.1 / 165.6 216.0 / 216.0
IV piggybacks 120 / 130 1613 / 1613
Amount instilled into Drain ( 70 / 70
Total)
Left Lower Abdomen Pierce- 50 / 50
Hoover
Right Lower Abdomen Peirce- 20 / 20
Hoover B
Amount instilled into GI Tube ( 150 / 150 60 / 60
Total)
[place] Sump 150 / 150 60 / 60
Output:
Liquid stool amount 50 / 50
Colostomy 50 / 50
Drain Output (Total) 288 / 288 683 / 683
Left Lower Abdomen Pierce- 235 / 235 518 / 518
Hoover
Right Lower Abdomen Pierce- 53 / 53 165 / 165
[place] B
Gastrointestinal tube output ( 100 / 100 200 / 200
Total)
[place] Sump 100 / 100 200 / 200
Urine, [place] 1144.0 / 1244.0 1155 / 1155
Lab Results
04/03/25 04:21
04/03/25 04:21
Physical Exam
-
General: No Acute Distress and AOx3
Abdomen: Soft, Non Distended and Non Tender
Wound: Dressing Changed
--- NOTE | 2025-04-03 09:00 | PTCARENOTE ---
pt awake and oriented, A Fib on monitor rate at 100-115, BP maintained on Levophed at 2 mcg goal for map of 65, Lungs diminished at based with 02 sats of 100 on 2L , faint bowel sounds , NGT continues with LIS , encouraged for pt to plan for oob
today , pt seen by yarn salvager and colorectal surgery , abd dressing was removed
[2025-04-03] MEDS: NSS (PRESERVATIVE FREE) 10 ML IV (09:15)
[2025-04-03] MEDS: DESENEX/MITRAZOL/ZEASORB 1 APPLIC TOPICAL ×2 (09:16→20:37)
[2025-04-03] MEDS: PROTONIX IV 40 MG IV (09:16)
[2025-04-03] MEDS: MYCOSTATIN CREAM 1 APPLIC TOPICAL ×2 (09:17→20:37)
--- NOTE | 2025-04-03 10:42 | W.PN.PLAS ---
Today's Communication
-
To OR for superficial debridement
Progress Note
Subjective Data
Doing well
Alert and interactive
NGT in place
Understands plan for debridement procedure
Objective Data
Vital Signs
Temp Pulse Resp BP Pulse Ox
97.8 F 108 13 106/64 100
04/03/25 08:00 04/03/25 07:00 04/03/25 07:00 04/02/25 18:25 04/03/25 07:00
Intake and Output
04/02/25 04/03/25 04/04/25
06:59 06:59 06:59
Intake Total 494.1 / 515.6 3949.1 / 3949.1
Output Total 1582.0 / 1682.0 2037 / 2037
Balance -1087.9 / -1166.4 1911.1 / 1911.1
Intake:
Oral fluids 60 / 60
IV fluids (Total) 154.1 / 165.6 2216.1 / 2216.1
Amiodarone. 400.1 / 400.1
KVO NS 100 / 100
LR BOLUS 1500 / 1500
Norepinephrine 154.1 / 165.6 216.0 / 216.0
IV piggybacks 120 / 130 1613 / 1613
Amount instilled into Drain ( 70 / 70
Total)
Left Lower Abdomen Pierce- 50 / 50
Hoover
Right Lower Abdomen Pierce- 20 / 20
Hoover B
Amount instilled into GI Tube ( 150 / 150 60 / 60
Total)
[place] Sump 150 / 150 60 / 60
Output:
Liquid stool amount 50 / 50
Colostomy 50 / 50
Drain Output (Total) 288 / 288 683 / 683
Left Lower Abdomen Pierce- 235 / 235 518 / 518
Hoover
Right Lower Abdomen Pierce- 53 / 53 165 / 165
[place] B
Gastrointestinal tube output ( 100 / 100 200 / 200
Total)
[place] Sump 100 / 100 200 / 200
Urine, Rogers 1144.0 / 1244.0 1155 / 1155
Physical exam:
No acute distress
No increased work of breathing
Alert and interactive
NGT in place
Abdominal incision dressing in place, PRETTY drain serosanguineous with appropriate output
Not tense
Perhaps cool but indeterminate
Increased superficial epidermal lysis
Pinprick without dark bleeding
Lab Results
04/03/25 04:21
04/03/25 04:21
Wound Documentation
04/01/25 16:00 (created 04/01/25 16:19) Wound Note by Radha Kelly
WON RN NOTE: Appliance changed and teaching done with patient. Stoma pale pink, slightly budded, for small amt of drainage, no stool output, has NGT in use. Peristomal skin intact. Stoma close to midline dressing, cut away edge of dressing to remove
old wafer and apply new wafer. Answered all questions and will follow toward end of week.
Initialized on 04/01/25 16:19 - END OF NOTE
Assessment / Plan
Status post myocutaneous flap reconstruction after APR
No prolonged direct sitting
Pressure offloading to the flap/ perineum
Strip and record PRETTY drain output
Plan for OR today for debridement to viable tissue. This will be done to prevent any superinfection of tissue with ongoing or impending necrosis. Cleared with CRS and ICU. Spoke with the daughter prior to surgery and left VM with son explaining
todays procedure. Risks and benefits reviewed at length. Leaving necrotic skin and fat could lead to infection, sepsis and systemic compromise. Debridement will only remove nonviable tissue. Wound may then be closed over a drain or left with
dressings to further dermarcate based on intraoperative findings.
Patient consented and expressed understanding.
--- NOTE | 2025-04-03 10:49 | OR.RPT ---
Operative Report
Operative Report
Date of service: 04/03/2025
Surgeon: EVANGELINA Chen MD
Preoperative diagnosis: Colorectal cancer, status post radiation
Postoperative diagnosis: Same
Procedure:
1. Excisional Debridement to muscle [id number], perineum
2. Adjacent tissue transfer [id number], perineum
Anesthesia: General
Complications: None
Specimens: None
EBL: 30 cc
Indication for procedure: Patient is a 74-year-old female with a low-lying colorectal cancer status post radiation who underwent APR just under 1 week ago. She was noted to have a healthy viable flap postoperatively. Somewhere between postop day 4
and 5, the flap changed appearance and appeared dusky in nature. There was no evidence of venous congestion. There was some legitimate concern for arterial thrombosis in a background of possible mild DIC. Flap was evaluated and determined to be
cool to touch. As such a plan was made for debridement of the superficial tissues back to viable flap. Patient and the patient's family were notified of the return to the OR for the debridement. They were informed that a gracilis muscle flap may
need to be performed in the future depending on the patient's wound healing ability and current flap viability. Risks included need for repeat procedure, wound breakdown, infection, hematoma, seroma. Plan was made for another drain to be placed in
the peritoneum.
Procedure in detail: Patient was identified preoperatively and the surgical site was confirmed to be the perineum. All questions were answered and consents were confirmed. The patient was taken back to the operative room and intubated in the
supine position. She was then placed prone on the operating table. All pressure points were appropriately cushioned. She was then prepped and draped in usual sterile fashion using Betadine solution. Timeout for patient safety was performed was
confirmed that bilateral SCDs were in place and preoperative antibiotics have been administered. The procedure began by removing the sutures insetting the flap of the perineum. Excisional debridement using a 10 blade was then performed removing
the skin and subcutaneous tissues of the flap. This continued to the rectus muscle itself. A large bulk of the rectus muscle was removed until punctate bleeding was noted near the pedicle. As such the residual flap and pedicle was sutured in
place and a plan was made for adjacent tissue transfer of the local tissues of the pelvic floor to provide a multilayer closure. This was done by dissecting free the adjacent tissues in their respective layers and advancing them to the midline with
a series of 0 Vicryl sutures. A drain was placed in the deep subcutaneous tissues and the superficial tissues were closed in layers with a series of Vicryl and chromic sutures. Patient tolerated the procedure well and was performed out
complication. All counts were correct at the end the case. She was extubated taken back to the the ICU for further care.
--- NOTE | 2025-04-03 11:38 | W.PN.HOSP.TC ---
Today's Communication/Plan
-
OR today-f/u post op plastic recs
IV amiodarone
IVF
IV abx
trend hgb/platelets
Assessment / Plan
Assessment / Plan
Impression:
Patient is a 74y F with PMH significant for A-Fib, CHF and anal cancer with recent recurrence who presented to on 03/28 for scheduled surgery for resection of recurrent malignancy. Patient underwent ureteroscopy with bilateral ureteral stents,
robotic APR, BIANKA / BSO, repair of vaginal defect and perineal reconstruction / flap on 03/28/25. She received 2 units PRBC and 1g TXA during the surgeries. Patient was successfully extubated post-op. She was on pressors post-op which were able to
be weaned, but have since been restarted at low dose to maintain adequate perfusion.
Medicine service was consulted for management of patient's multiple medical issues.
Assessment/plan:
Anal Cancer s/p Robotic APR, BIANKA/BSO, Repair of Vaginal Defect, Perineal Reconstruction / Flap
- Continue post-op care per surgical service(s). Pain control.
- Continue with NG tube. NGT clamping trial once with signs of ROBF.
- Pain control. OOB/activity per surgery post op.
- IV Ancef per surgery recommendations. Plan for OR today by plastic surgery for perineal flap debridement.
Acute Blood Loss Anemia
Shock likely secondary to hemorrhagic and hypovolemia
Coagulopathy with thrombocytopenia
- Received 5 units PRBCs total thus far (and 1 g TXA) and 2units of FFP and 10mg of Vitamin K. Hemoglobin at 9.2.
- Currently on low-dose Levophed for BP support - wean as able.
- IV ppi. IVF.
- Follow H&H and transfuse additional blood products if needed. If persistent downtrend of hemoglobin may need to consider CT abdomen pelvis
- If persistent downtrend in platelets noted check fibrinogen, D-dimer. Low likelihood of DIC.
Persistent Atrial Fibrillation
- now in RVR. IV amiodarone started.
- Lopressor IV at low dose with holding parameters for BP.
- Eliquis on hold for surgery, blood loss, etc.
Hypothermia
- Mild hypothermia post-op. Likely combination of anesthesia, blood loss, etc.
- resolved
Acute hypoxic respiratory insufficiency
- Currently on 2 L of oxygen. Wean O2 as tolerated.
Chronic HFpEF
- Hypotensive at present as noted above.
- Status post 20 mg of IV Lasix earlier in the week.
- Continue to follow accurate I/Os, daily weights, etc.
- IV Lasix PRN for worsening edema, increased weight, etc - as BP allows.
- Patient on only twice weekly Lasix as an outpatient.
DM-II
- Stable. Hold usual oral agents.
- Follow glucose and cover with SSI as needed.
- A1C was 5.7 on 03/26/25.
CKD III
- Stable. SCr is actually improved from prior baseline (1.3 compared to 1.6).
- Follow for changes with fluid shifts / BP changes / etc.
- Avoid nephrotoxic agents / hypotension / etc.
Hypothyroidism
- TFTs normal in February of this year.
- Resume usual T4 supplementation when OK for PO meds.
- Repeat TFTs given hypothermia- TSH wnl.
- Started on IV levothyroid
Hypocalcemia
Hypomagnesemia
Hypophosphatemia
Hypokalemia
-Replete and monitor
Mild hypernatremia
- Monitor for now. If persistent uptrend will need to be started on hypotonic fluids
DVT Prophylaxis: lovenox sc
CODE STATUS: Full code
Anticipated Discharge: > 48 hours
Subjective/Interval History
-
Date of Service: April 03, [address] to OR
remains in afib
Objective Data
-
Labs:
Laboratory Results
04/03/25
04:21
WBC 7.2
Hgb 9.2 L
Hct 29.8 L
Plt Count 107 L
Sodium 147 H
Potassium 4.6
Chloride 117 H
Carbon Dioxide 25
BUN 16
Creatinine 1.3 H
Glucose 146 H
Calcium 8.2 L
Vital Signs:
Vital Signs
Temp Pulse Resp BP Pulse Ox
97.8 F 117 16 106/64 100
04/03/25 08:00 04/03/25 10:30 04/03/25 10:30 04/02/25 18:25 04/03/25 10:30
I&O
04/02/25 04/03/25 04/04/25
06:59 06:59 06:59
Intake Total 494.1 / 515.6 3949.1 / 3973.3 321.0 / 321.0
Output Total 1582.0 / 1682.0 2037 / 2062 220 / 220
Balance -1087.9 / -1166.4 1911.1 / 1910.3 101.0 / 101.0
Physical Exam
-
General: Well Developed, Well Nourished and Obese
HEENT: Normocephalic, Atraumatic and Other (NG tube)
Respiratory: Non Labored Respirations
Cardiac: Irregular Rhythm
Breast: Deferred by me
GI: Ostomy and Other (Drain at surgical site)
Genito-urinary: No Costovertebral Tender
Musculoskeletal: No Clubbing and No Cyanosis
Skin: Warm
Neuro: Awake
Psych: Calm
--- NOTE | 2025-04-03 11:52 | PTCARENOTE ---
pt was seen by Dr Chen and planed for a debridment of her flap to keep viable and prevent infection , she was sent to the OR at 11:00
--- NOTE | 2025-04-03 12:49 | W.IMMPOSTOP ---
Surgical Immed Post Op Note
-
Primary Surgeon: EVANGELINA Chen MD
Assisting Surgeon:
Pre-op Diagnosis: Advanced Colorectal cancer, s/p radiation, multiply comorbid
Post-op Diagnosis: Same
Procedure Performed: Excisional Debridement to muscle [id number], adjacent tissue transfer [id number]
Anesthesia Type: GA
Specimen / Cultures: None
Estimated Blood Loss: 10cc
Complications: None
Operative Findings: Superficial tissue necrotic, viable deep muscle at pelvic inlet
--- NOTE | 2025-04-03 12:55 | W.PN.UPDATE ---
Update Note
Progress Note Update
Plastic Surgery
Went to OR for Debridement of flap to muscle. Viable muscle proximally. Mobilized adjacent tissue of the pelvis for closure and elimation of space.
Placed one additional drain below scarpas in perineum
Pressure offloading - q1h position changes with bump to maintain sacral offloading in lateral decubitus
--- NOTE | 2025-04-03 13:00 | W.PN.INTV ---
Addendum entered and electronically signed by Ross Antunez MD 04/03/25 13:29:
Patient reevaluated after returning from the OR. Noted to be in rapid ventricular rate again with A-fib as well as MAP around 60-62.
- Switch to phenylephrine in view of tachycardia and titrate to keep MAP 65 or above
- Wean Levophed as tolerated
Original Note:
Today's Communication / Plan
Recommendations
- Start Ringer lactate infusion at 100 mL/h
- Wean Levophed as tolerated, target MAP 65 or above
- Depending upon her progress with oral intake, will consider TPN over next 24 hours
Assessment
-
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
status post robotic abdominoperineal resection, BIANKA/BSO, VRAM flap perineal reconstruction, 03/28. Patient admitted to ICU postoperatively given significant blood loss, hypotension requiring pressors
Conditions present prior to admission
History of CKD stage IIIb
Diabetes
Anal squamous cell cancer, stage III
Diagnosed November 2023
s/p chemotherapy/radiation at [facility]
Recurrence of disease per pelvic MRI January 2025
Follows oncology ([facility])
Atrial fibrillation on Eliquis
Now off amiodarone Per cardiology, remains on beta-joseph ([facility])
Moderate pulm hypertension, echo March 2025, stable compared to prior echo
With dilated RV, normal function, PA pressure 66
Normal EF
Moderate mitral stenosis
History of stroke 1994 and again 2022 per patient
Suspected sleep apnea
Overview 04/03: Patient currently with a MAP of 71, Levophed infusing at 2. Saturating 100% on 2 L supplemental oxygen. Amiodarone infusing at 0.5.
Assessment and plan:
#1. Shock, hemorrhagic related to blood loss and likely post-op vasoplegia
- Still requiring Levophed, wean as tolerated, @ 2 now
- s/p 4 units of PRBC
- Serial H&H. Hematocrit stable
- Suspect RVR with A fib also contributing to hypotension and difficulty weaning of Levophed.
#2. Coagulopathy, suspect transfusion related
- INR noted to be elevated, give vitamin K 10 mg IV 03/31
- Fresh frozen plasma, 2 units, IV calcium given for hypocalcemia 03/31
- If additional blood transfusion needed will give FFP and platelets along with PRBC
#3. S/p robotic abdominoperineal resection, BIANKA/BSO, repair of vaginal defect, VRAM flap perineal reconstruction, 03/28/25
- Complicated by blood loss, 1 L per OR records. TXA given intra-operatively
#3a. Concern for superficial necrosis of flap, 04/03
- Patient scheduled to go back to OR for debridement
- NPO
#4. Chronic HFpEF
- f/u CXR stable
- lasix continues to be on hold
- > 2 ltr LR given for low urine out put and suspect intra-vascular hypovolemia 04/02 along with albumin
- Start LR infusion @100 ml/h
#5. Chronic atrial fibrillation with RVR, sick sinus syndrome
- Holding metoprolol in view of hypotension. Eliquis on hold in view of bleeding.
- Continue telemetry monitoring
- Amiodarone bolus and infusion started 04/02, Cardiology consult, tachycardia better controlled.
#6. Mild OSMANY
- Decreased urine out put, dry mouth, also hypotensive, suspect intra-vascular hypovolemia
- s/p > 2 ltr LR and Albumin over last 24 hrs
- Initiate LR infusion at 100/h. Labs in AM. Avoid hypotension.
Other medical diagnoses:
- Hypothyroidism
- Diabetes mellitus
DVT prophylaxis: Subcu Lovenox ordered.
GI prophylaxis: Protonix
Critical Care time 45 mins -- The patient is admitted for acute critical illness for the treatment of vital organ failure and/or prevention of further life-threatening conditions. Total care includes time spent in review of history, physical exam,
medications, hemodynamic/ventilator parameters, laboratory data, imaging and discussion with house staff, pharmacy, respiratory therapy, rpg programmer, and nursing.
Data:
Echo 03/25/2025: Normal biventricular function with mildly dilated RV, moderate mitral stenosis, severe TR, PA pressure 66
Subjective Dataa
Subjective Data
Date of Service:
Date of Service: April 03, 2025
Subjective:
Patient comfortably lying in bed in no acute distress.
Review of Systems
Genitourinary: Other (No new symptoms reported.)
Objective Data
Data Reviewed
Vital Signs / I&O / Oxygen:
Vital Signs
Temp Pulse Resp BP Pulse Ox
97.8 F 117 16 106/64 100
04/03/25 08:00 04/03/25 10:30 04/03/25 10:30 04/02/25 18:25 04/03/25 10:30
Intake and Output
04/02/25 04/03/25 04/04/25
06:59 06:59 06:59
Intake Total 494.1 / 515.6 3949.1 / 3973.3 321.0 / 321.0
Output Total 1582.0 / 1682.0 2037 / 2062 220 / 220
Balance -1087.9 / -1166.4 1911.1 / 1910.3 101.0 / 101.0
SaO2 100
Nasal Cannula flow liters per 2
minute
Physical Exam
General: Comfortable
HEENT: Normocephalic and Anicteric
Cardiovascular: S1-S2, Regular Rhythm, Murmur (n) and Rub (n)
Respiratory: Wheeze (n), Crackles (n), Rhonchi (n) and Non-Labored Respirations
GI: Soft, Non Distended, Non Tender and NG Tube (Ostomy, PRETTY drains)
Neurology: Awake, Alert and No Motor Deficits (Generally weak)
Skin: Good Color (Mild pallor), Jaundice (n) and Rash (n)
Labs/Micro/Reports
Lab Data
04/03/25 04:21
04/03/25 04:21
[2025-04-03] MEDS: ANCEF IV (13:28)
[2025-04-03] MEDS: DILAUDID 0.5 MG IV (13:30)
[2025-04-03 13:48] LABS: Glucose - Point of Care 149 mg/dl (70-99)
[2025-04-03] MEDS: NEO-SYNEPHRINE 250 IV (13:53)
--- NOTE | 2025-04-03 14:07 | CON.CAR ---
Addendum entered and electronically signed by Mirta Barreto MD 04/03/25 16:45:
I saw and evaluated the patient, and I provided the substantive portion of the medical decision making.
I reviewed and agree with the note by Maureen Pendleton and it accurately reflects our care.
I personally performed the medical decision making of the this encounter and my assessment and plan is below:
74 y/o female (patient of Dr. Hsu) with persistent AFIB on Eliquis, HFpEF, hypertension, diabetes, and pacemaker. She has anal cancer and is now s/p robotic abdominoperineal resection, repair of vaginal defect, robotic total laparoscopic
hysterectomy, bilateral salpingo-oophorectomy, vertical rectus abdominis myocutaneous flap reconstruction of the perineum, cystoscopy and bilateral ureteral stent insertion (03/28/25) c/b hemorrhagic shock. We are asked to consult regarding afib
with rvr. She is now out of the OR after debridement of her flab. Initial vasopressor has been transitioned to phenylephrine from levophed. Amio gtt has been started to offer better rate control given hypotension. She is fatigued but no complaint
of cp or sob. No sense of arrhythmia. on Exam she is lethargic but interactive. Right arm echymotic, irreg irreg cta b.l.
Overall, agree w change of vasopressor for ongoing hypotension and af with rvr. Amiodarone will continue until can transition back to bb. Wean vasopressors as able. Monitor volume status given AF with rvr and h/o HFpEF.
Will follow
Original Note:
Consultation
Consultation Request
Date/Time Consultation Requested: 04/03/25 1311
Date/Time Consultation Performed: 04/03/25 1407
Requesting Provider: Dr. Antunez
Performing Provider: Maureen ALICIA for Dr. Barreto
Reason for Consultation: AFIB with RVR
Medical History
-
Chief Complaint: anal cancer
History of Present Illness:
74 y/o female (patient of Dr. Hsu) with persistent AFIB on Eliquis, HFpEF, hypertension, diabetes, and pacemaker. She has anal cancer and is now s/p robotic abdominoperineal resection, repair of vaginal defect, robotic total laparoscopic
hysterectomy, bilateral salpingo-oophorectomy, vertical rectus abdominis myocutaneous flap reconstruction of the perineum, cystoscopy and bilateral ureteral stent insertion (03/28/25). Post-operatively, she required PRBC's for acute blood loss
anemia, with hypotension requiring pressors. Today, she went back to OR for debridement of flap to muscle with plastic surgery. We are consulted for AFIB with RVR. She has persistent AFIB, rate-controlled with metoprolol, which has been held for
hypotension as noted. Yesterday, amiodarone IV was initiated for rapid rates with low BP. Today after her repeat surgery, rhythm now looks like atrial flutter with new RBBB. She is in no distress at the time of my assessment.
Past Medical History
Past Medical History: Arrhythmias, CHF, HTN and NIDDM
Social History
Tobacco: Non-Smoker
Family History
Family History: CAD (mom CABG age 68)
Allergies / Home Medications
Allergy/AdvReac Type Severity Reaction Status Date / Time
sulfamethoxazole (From Allergy hypotension Verified 03/28/25 06:35
Bactrim)
trimethoprim (From Bactrim) Allergy hypotension Verified 03/28/25 06:35
�Medication �Instructions �Recorded �Confirmed �Type
cholecalciferol (vitamin D3) 25 1,000 units PO DAILY Supplement 07/31/21 03/28/25 History
mcg (1,000 unit) tablet
tamsulosin 0.4 mg capsule 0.4 mg PO DAILY Urinary issue 07/31/21 03/28/25 History
atorvastatin 40 mg tablet 40 mg PO HS High cholesterol 09/28/22 03/28/25 History
potassium chloride 20 mEq 20 meq PO HS Electrolyte Repletion 12/02/22 03/28/25 History
tablet,extended release
cyanocobalamin (vitamin B-12) 1,000 mcg PO DAILY #30 tabs 12/04/23 03/28/25 Rx
1,000 mcg tablet
ferrous sulfate 325 mg (65 mg 325 mg PO DAILY Supplement 12/04/24 03/28/25 History
iron) tablet (iron)
folic acid 1 mg tablet 1 mg PO DAILY Supplement 12/04/24 03/28/25 History
insulin degludec 100 unit/mL (3 8 unit SQ HS Diabetes 12/04/24 03/28/25 History
mL) subcutaneous pen (Tresiba
FlexTouch U-100 insulin)
furosemide 40 mg tablet 40 mg PO TUTH Fluid 02/18/25 03/28/25 History
Retention/Swelling
levothyroxine 150 mcg tablet 150 mcg PO DAILY Thyroid 02/19/25 03/28/25 History
apixaban 5 mg tablet (Eliquis) 5 mg PO BID #60 tabs 02/24/25 03/28/25 Rx
glipizide 5 mg tablet 2.5 mg (1/2 x 5 mg) PO DAILY #0 02/24/25 03/28/25 Rx
tabs
metoprolol succinate 25 mg 25 mg PO BID #30 tabs 02/24/25 03/28/25 Rx
tablet,extended release 24 hr
(Toprol XL)
metronidazole 500 mg tablet 500 mg PO .[id number] Pre-op 03/26/25 03/28/25 History
PPX
neomycin 500 mg tablet 1,000 mg PO .1400.1500.2200 Pre-op 03/26/25 03/28/25 History
PPX
sodium sul 1.479 gram-potas ch 24 tab PO PER PKG DIR Pre-op prep 03/26/25 03/28/25 History
0.188 gram-magnes sul 0.225 gram
tablet (Sutab)
amoxicillin 500 mg capsule 500 mg PO BID Pre-op PPX 03/28/25 03/28/25 History
Review of Systems
-
History Source: Patient
All other systems: Negative unless noted
Constitutional: Other (post-op pain)
Respiratory: Trouble Breathing
Physical Exam
Vital Signs
Temp Pulse Resp BP Pulse Ox
97.8 F 117 16 106/64 100
04/03/25 08:00 04/03/25 10:30 04/03/25 10:30 04/02/25 18:25 04/03/25 10:30
Lab Results
04/03/25 04:21
04/03/25 04:21
Physical Exam
General: Well Developed and No Apparent Distress
HEENT: Normocephalic and Anicteric
Respiratory: Clear and Other (on O2 by NC)
Cardiac: Regular Rhythm
Musculoskeletal: No Edema
Skin: Warm and Dry
Neuro: Awake and Alert
Psych: Calm
Impression / Plan
-
Anal cancer:
-s/p robotic abdominoperineal resection, repair of vaginal defect, robotic total laparoscopic hysterectomy, bilateral salpingo-oophorectomy, vertical rectus abdominis myocutaneous flap reconstruction of the perineum, cystoscopy and bilateral
ureteral stent insertion (03/28/25)
-post-op course complicated by hypotension requiring blood products, fluid, vasopressors (suspected hemorrhagic shock- diagnosis is threat to life)
AFIB with RVR:
-patient has known persistent AFIB, which is consistent this hospitalization
-metoprolol has been held with hypotension
-rates fast in setting of acute illness and appropriately held meds. She does not feel this.
-now on IV amiodarone, which was started since HR fast and BP low. Continue for now; this requires intensive monitoring.
-additionally, levo switched to merrill
-New RBBB is noted today. Rhythm looks more like flutter currently.
-Eliquis held in setting of acute bleeding as above
-per OP notes, was on digoxin the past but stopped in 2020 when she had acute renal failure
HFpEF:
-chronic
-Echo 03/25/25: Ejection fraction is 55-60%. Right ventricle appears dilated with normal function. Moderate mitral stenosis; peak/mean gradients 15/5 mmHg. Moderate to severe tricuspid regurgitation. Estimated pulmonary artery pressure of 66 mmHg,
assuming a right atrial pressure of 8 mmHg. Compared to a prior transthoracic echocardiogram study from 02/15/2024 no significant changes are seen.
-monitor volume
Pacemaker:
-continue to monitor in device clinic
Data Reviewed
-
EKG: Tracing Personally Visualized and interpreted (AFIB with RVR RBBB)
Radiology: Report Reviewed by me (CXR: Lines and tubes, as above. Low lung volumes with patchy bibasilar opacities, likely atelectasis and/or small effusion. No significant effusions or pneumothorax appreciated.)
Medical Tests (Nuc Med, Echo etc): Report Reviewed by me (echo as noted)
Labs: Labs Reviewed by me
--- NOTE | 2025-04-03 14:08 | CM ---
OR today: Colorectal cancer. Debridement of flap to muscle. Placed additional drain below scarpas in perineum, Pressure offloading - q1h position changes. Discharge POC: Supplied [employer] list to patient on 04/02/25. She requested this CM
forward referrals on her behalf. Referrals forwarded.
[2025-04-03 14:30] LABS: Glucose - Point of Care 186 mg/dl (70-99)
[2025-04-03] MEDS: CORDARONE 518 MG IV (15:29)
[2025-04-03] MEDS: ANCEF 5 IV (16:26)
[2025-04-03] MEDS: LOVENOX 40 MG SC (17:01)
[2025-04-03] MEDS: LEVOTHROID 115 MCG IV (17:02)
[2025-04-03 17:46] LABS: Glucose - Point of Care 160 mg/dl (70-99)
--- NOTE | 2025-04-03 17:53 | PTCARENOTE ---
pt returned to ICU at 1345 post perennial debridement , she was hypotensive , her heart rate up to 130s , her nasim flat and not giving blood back , nasim [place], Dr Antunez at bedside she was in a rapid afib with RVR on Levophed gtt at 4mcg , EKG done ,
her Levophed was stopped and she was started on merrill gtt , she was up to 120mcg for a goal map of 65 , she is now down to 100mcg , her HR is now controlled afib 70-100 , she was placed on a continuos lateral rotation mattress as ordered
[2025-04-03] MEDS: NOVOLOG FLEXPEN-MODERATE RESISTANCE 1 UNITS SC (18:01)
--- NOTE | 2025-04-03 20:00 | PTCARENOTE ---
Pt received sleeping. Arouses easily to name. Remains on merrill gtt. Titrated to keep MAP >65. NG intact to R nare-irrigates easily. Pt on sport bed on rotation. Assessment as charted.
--- NOTE | 2025-04-03 22:15 | PTCARENOTE ---
Urine output only 45 ml this shift. Discussed with house BRIDAL STYLIST SALES CONSULTANT. Adam increased to 40mcg. LR bolus given.
[2025-04-03] MEDS: LR 250 IV (22:16)
[2025-04-03 22:30] LABS: Hematocrit 32.3 % (37.0-47.0); Hemoglobin 10.0 g/dL (12.0-16.0)
[2025-04-03 23:53] LABS: Glucose - Point of Care 178 mg/dl (70-99)
[2025-04-04] VITALS (56 sets, daily range): BP systolic 35–142; BP diastolic 19–114; PULSE 106–158; O2SAT 95–96; BMI 40.0
[2025-04-04] MEDS: ANCEF 5 IV ×3 (00:06→20:30)
[2025-04-04] MEDS: NOVOLOG FLEXPEN-MODERATE RESISTANCE 1 UNITS SC ×4 (00:06→17:30)
--- NOTE | 2025-04-04 04:17 | PTCARENOTE ---
L PRETTY drain site leaking around drain-large amt serous drainage. Changed with drain sponges and ABD after cleansing with NSS. PRETTY bulb compressed but has no drainage.
[2025-04-04] MEDS: NEO-SYNEPHRINE 250 IV ×2 (04:31→18:36)
[2025-04-04 04:36] LABS: Hematocrit 31.5 % (37.0-47.0); Hemoglobin 9.9 g/dL (12.0-16.0); Mean Corp Hgb Conc. 31.4 g/dL (33.0-37.0); Mean Corpuscular Volume 97.5 fL (81.0-99.0); Nucleated Red Blood Cells % 0.9 %; Platelet Count 153 10^3/uL (130-400); Red Cell Dist. Width 16.5 % (11.5-14.5)
[2025-04-04 05:15] LABS: Blood Urea Nitrogen 21 mg/dl (7-17); Calcium 8.0 mg/dl (8.4-10.2); Carbon Dioxide 23 mmol/L (22-30); Chloride 115 mmol/L (98-107); Estimated Creatinine Clearance 34 ml/min; Glucose 189 mg/dl (70-99); Potassium 5.3 mmol/L (3.5-5.1); Sodium 145 mmol/L (135-145); eGFR 36.12
[2025-04-04 05:31] LABS: Glucose - Point of Care 181 mg/dl (70-99)
--- NOTE | 2025-04-04 05:37 | PTCARENOTE ---
Urine output remains poor. PAPER PATTERN FOLDER aware.
--- NOTE | 2025-04-04 07:10 | W.PN.INTV ---
Today's Communication / Plan
Recommendations
Extubated and doing well, remains on low-dose pressor, weaning to off
Remains n.p.o. with NG tube in place, diet advancement per team, likely to need TPN
Continuing IV antibiotics
Rate control with amiodarone, Eliquis on hold
Further postop care per colorectal and plastics
PT OT
If doing well and able to wean off pressors, can likely transfer to floors
Assessment
-
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
status post robotic abdominoperineal resection, BIANKA/BSO, VRAM flap perineal reconstruction, 03/28. Patient admitted to ICU postoperatively given significant blood loss, hypotension requiring pressors
Shock, hemorrhagic related to blood loss and likely post-op vasoplegia
Coagulopathy, suspect transfusion related
S/p robotic abdominoperineal resection, BIANKA/BSO, repair of vaginal defect, VRAM flap perineal reconstruction, 03/28/25
Concern for superficial necrosis of flap, s/p excisional debridement to muscle 10 x 30 cm with adjacent tissue transfer/ 04/03
OSMANY
Leukocytosis
Thrombocytopenia
Hyperkalemia
Hyperglycemia
Conditions present prior to admission
History of CKD stage IIIb
Diabetes
Anal squamous cell cancer, stage III
Diagnosed November 2023
s/p chemotherapy/radiation at [place]
Recurrence of disease per pelvic MRI January 2025
Follows oncology ([facility])
Atrial fibrillation on Eliquis
Now off amiodarone Per cardiology, remains on beta-joseph (Shadi)
Moderate pulm hypertension, echo March 2025, stable compared to prior echo
With dilated RV, normal function, PA pressure 66
Normal EF
Moderate mitral stenosis
History of stroke 1994 and again 2022 per patient
Suspected sleep apnea
Hypothyroidism
Plan:
Extubated and weaned off sedation
Pain control
Rass goal 0
Shock, hemorrhagic related to blood loss and likely post-op vasoplegia- Still requiring low dose merrill
Wean pressor as tolerated, midodrine PO if able to take meds
s/p 4 units of PRBC--Serial H&H. Hematocrit stable
Suspect RVR with A fib also contributing to hypotension and difficulty weaning of Levophed.
Eliquis on hold in view of bleeding.
Amiodarone bolus and infusion started 04/02, Cardiology consult, tachycardia better controlled.
Chronic HFpEF - f/u CXR stable - lasix continues to be on hold
Continue telemetry monitoring
Extubated and doing well
Remains on low supplemental o2, wean to off
Chest x-ray without acute findings
Encourage out of bed, I-S
Aspiration precautions
Currently n.p.o., NG tube in place
S/p robotic abdominoperineal resection, BIANKA/BSO, repair of vaginal defect, VRAM flap perineal reconstruction, 03/28/25
Complicated by blood loss, 1 L per OR records. TXA given intra-operatively
Likely to start TPN, colorectal following
Diet advancement per team
Concern for superficial necrosis of flap, 04/03
Patient returned to OR for excisional debridement
- followed by plastics
Coagulopathy, suspect transfusion related
INR noted to be elevated, give vitamin K 10 mg IV 03/31
Fresh frozen plasma, 2 units, IV calcium given for hypocalcemia 03/31
If additional blood transfusion needed will give FFP and platelets along with PRBC
Follow CBC
Mild OSMANY - Decreased urine out put, dry mouth, also hypotensive, suspect intra-vascular hypovolemia
s/p > 2 ltr LR and Albumin over last 24 hrs
Initiate LR infusion at 100/h. Labs in AM. Avoid hypotension.
Follow creat, IOs
Replete electrolytes as needed
DVT prophylaxis: Subcu Lovenox ordered.
GI prophylaxis: Protonix
Data:
CXR 04/02/25- Low lung volumes with patchy bibasilar opacities, likely atelectasis and/or small effusion. No significant effusions or pneumothorax appreciated.
03/28/25- Nasogastric tube is present with tip near the gastroesophageal junction and distal sidehole in the distal esophagus. Consideration for advancement of this tube. Interstitial edema. Linear atelectasis in the right midlung. Mild to moderate
elevation of the left hemidiaphragm, new since previous radiograph. Probable small bilateral pleural effusions.
CT CAP 02/21/25- Circumferential anal wall thickening consistent with known malignancy versus posttreatment change. Probably stable. No evidence of metastatic disease. However, extremely limited exam without IV contrast. Tiny pericardial effusion.
Stable. Progressed small right and new tiny left pleural effusions. Findings suggesting moderate bilateral lower lobe and mild upper lobe pneumonia. New. Mild mediastinal lymphadenopathy. Probably reactive. Stable. Gallstones. Stable. Mild diffuse
bladder wall thickening. This can be seen with cystitis or bladder outlet obstruction. Improved.
Findings suggesting bilateral lower third spacing. Progressed
Echo 03/25/2025: Normal biventricular function with mildly dilated RV, moderate mitral stenosis, severe TR, PA pressure 66
-----
Critical Care time 32 mins -- The patient is admitted for acute critical illness for the treatment of vital organ failure and/or prevention of further life-threatening conditions. Total care includes time spent in review of history, physical exam,
medications, hemodynamic/ventilator parameters, laboratory data, imaging and discussion with house staff, pharmacy, respiratory therapy, printed forms proofreader, and nursing.
Subjective Dataa
Subjective Data
Date of Service:
Date of Service: April 04, 2025
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
Subjective:
extubated, remains on low dose pressor
no new complaints
ngt remains
Objective Data
Data Reviewed
Vital Signs / I&O / Oxygen:
Vital Signs
Temp Pulse Resp BP Pulse Ox
98.5 F 101 13 97/65 100
04/04/25 03:09 04/04/25 06:00 04/04/25 06:00 04/04/25 06:00 04/04/25 06:00
Intake and Output
04/03/25 04/04/25 04/05/25
06:59 06:59 06:59
Intake Total 3949.1 / 3973.3 3047.8 / 3047.8
Output Total 2037 735 / 735
Balance 1911.1 / 1910.3 2312.8 / 2312.8
SaO2 100
Nasal Cannula flow liters per 2
minute
Physical Exam
General: Comfortable, Poor Appetite and Other (NAD)
HEENT: Normocephalic, Anicteric and Moist Mucous Membranes
Cardiovascular: S1-S2, Regular Rhythm, Murmur (n) and Rub (n)
Respiratory: Clear, Wheeze (n), Crackles (n), Rhonchi (n) and Non-Labored Respirations
GI: Soft, Non Distended, Non Tender, NG Tube (Ostomy, PRETTY drains) and Other (abdominal incisions are noted)
Neurology: Awake, Alert, Oriented and No Motor Deficits (Generally weak)
Skin: Good Color (Mild pallor), Jaundice (n) and Rash (n)
Labs/Micro/Reports
Lab Data
04/04/25 03:43
04/04/25 04:39
[2025-04-04] MEDS: NSS (PRESERVATIVE FREE) 10 ML IV (08:28)
[2025-04-04] MEDS: PROTONIX IV 40 MG IV (08:28)
--- NOTE | 2025-04-04 08:37 | W.PN.CD ---
Today's Communication / Plan
-
IV lasix 40mg now and assess response
continue iv amiodarone while still on vasopressor and npo
d/w Dr Scott and ICU nursing
Impression / Plan
-
Hemorhagic shock:
-threat to life
-post operatively
-hgb now stable, last transfusion 03/31/25
-levo switched to merrill given afib with rvr, weaning as able
AFIB with RVR:
-patient has known persistent AFIB, which is consistent this hospitalization
-metoprolol has been held with hypotension
-utilizing IV amiodarone in the setting of hypotension and NPO for rate control.
-New RBBB is note, Suspect rate related
-Eliquis held in setting of acute bleeding as above, resume when ok with surgery/medicine
-per OP notes, was on digoxin the past but stopped in 2020 when she had acute renal failure
HFpEF:-chronic
-wt now up 21 lbs in the setting of approapriate resuscitation for hemorrhagic shock
-now uop dropping and cr up, will trial a dose of IV lasix with intensive monitoring.
-Echo 03/25/25: Ejection fraction is 55-60%. Right ventricle appears dilated with normal function. Moderate mitral stenosis; peak/mean gradients 15/5 mmHg. Moderate to severe tricuspid regurgitation. Estimated pulmonary artery pressure of 66 mmHg,
assuming a right atrial pressure of 8 mmHg. Compared to a prior transthoracic echocardiogram study from 02/15/2024 no significant changes are seen.
Anal cancer:
-s/p robotic abdominoperineal resection, repair of vaginal defect, robotic total laparoscopic hysterectomy, bilateral salpingo-oophorectomy, vertical rectus abdominis myocutaneous flap reconstruction of the perineum, cystoscopy and bilateral
ureteral stent insertion (03/28/25)
-post-op course complicated by hypotension requiring blood products, fluid, vasopressors (suspected hemorrhagic shock- diagnosis is threat to life)
Pacemaker:
-continue to monitor in device clinic
CCT 31 minutes
Physical Exam
Vital Signs/Labs
Vital Signs
Temp Pulse Resp BP Pulse Ox
98.5 F 101 13 97/65 100
04/04/25 03:09 04/04/25 06:00 04/04/25 06:00 04/04/25 06:00 04/04/25 06:00
04/03/25 04/04/25 04/05/25
06:59 06:59 06:59
Actual Weight 212 lb 4.882 oz 211 lb 9.6 oz
04/04/25 03:43
04/04/25 04:39
PT 16.4 Sec (11.4-14.6) H 04/02/25 04:42
INR 1.29 04/02/25 04:42
APTT 29.3 Sec (23.4-35.0) 04/02/25 04:42
Magnesium 1.8 mg/dl (1.6-2.3) 04/03/25 04:21
Physical Exam
Constitutional: No acute distress
Cardiovascular: Rhythm/rate is irregular and Pedal edema present (1 b;l)
Respiratory: Respiratory effort normal and Wheeze Present (faint end expiratory )
GI: Soft
Neuro/Psych: AO x 3
Data Reviewed
-
Date of Service: April 04, 2025
EKG: Other (tele afib at time rvr)
[2025-04-04] MEDS: MYCOSTATIN CREAM 1 APPLIC TOPICAL ×2 (08:49→20:30)
[2025-04-04] MEDS: DESENEX/MITRAZOL/ZEASORB 1 APPLIC TOPICAL ×2 (08:49→20:30)
[2025-04-04] MEDS: LR 1000 IV ×2 (09:28→21:03)
--- NOTE | 2025-04-04 10:00 | PTCARENOTE ---
pt afib on monitor , she continues on neosynephrine for map goal of 65, labs noted , creatinine is increased with low urine output , director of therapy services aware
--- NOTE | 2025-04-04 10:36 | PTOTSP ---
Patient underwent surgery 04/03 with general anesthesia - will require updated PT and OT orders to resume therapy. Discussed with RN.
--- NOTE | 2025-04-04 10:37 | W.PN.CRS1 ---
Today's Communication / Plan
-
PICC/TPN.
Assessment/Plan
-
POD 7.
1. no substantial bowel function as of yet. Will order PICC/TPN.
2. WBC up a bit. On Ancef per Dr. Chen. Dr. Chen's operation yesterday noted--flap debrided--apparently viable at pelvic inlet.
3. on low dose merrill still.
4. continue other measures. Appreciate help of consultants.
Subjective Data
Procedure
03/28/2025- RAL APR (CRS), vaginal defect repair with BIANKA/BSO (MANAGER SPRING) and VRAM flap (Plastics)
Subjective Data
Date of Service: April 04, 2025
Patient with reasonable pain control. Awake and verbal. On merrill-.
Objective Data
-
Vital Signs
Temp Pulse Resp BP Pulse Ox
98.5 F 101 13 97/65 100
04/04/25 03:09 04/04/25 06:00 04/04/25 06:00 04/04/25 06:00 04/04/25 06:00
Intake & Output
04/03/25 04/04/25 04/05/25
06:59 06:59 06:59
Intake Total 3949.1 / 3973.3 3047.8 / 3047.8
Output Total 2037 735 / 735
Balance 1911.1 / 1910.3 2312.8 / 2312.8
Intake:
Oral fluids 60 / 60
IV fluids (Total) 2216.1 / 2240.3 2987.8 / 2987.8
Amiodarone. 400.1 / 416.8 400.8 / 400.8
KVO NS 100 / 100
LR BOLUS 1500 / 1500
Lr 1,000 ml @ 100 mls/hr IV . 200 / 200
Q10H CARLOS Rx#:[id number]
Lr 1,000 ml @ 100 mls/hr IV . 2099 / 2099
Q10H CARLOS Rx#:[id number]
Neosyneprhrine 227.0 / 227.0
Norepinephrine 216.0 / 223.5 60.0 / 60.0
IV piggybacks 1613 / 1613
Amount instilled into GI Tube ( 60 / 60 60 / 60
Total)
[place] Sump 60 / 60 60 / 60
Output:
Drain Output (Total) 683 / 683 315 / 315
C 40 / 40
Left Lower Abdomen Pierce- 518 / 518 100 / 100
[place]
Right Lower Abdomen Pierce- 165 / 165 125 / 125
Hoover B
Sacrum Pierce-Hoover C 50 / 50
Gastrointestinal tube output ( 200 / 200 0 / 0
Total)
[place] Sump 200 / 200 0 / 0
Urine, Rogers 1155 / 1180 420 / 420
Lab Results
04/04/25 03:43
04/04/25 04:39
Physical Exam
-
General: No Acute Distress
Chest: Clear
Cardiovascular: Regular Rate & Rhythm
Abdomen: Tender (Mild) and Other (stoma viable with a bit of gas in bag; JPs SS)
Skin: Warm
Incision: Clear, Dry, Intact and Skin Erythema
[2025-04-04] MEDS: LASIX 40 MG IV (10:39)
--- NOTE | 2025-04-04 11:11 | W.PN.HOSP.TC ---
Today's Communication/Plan
-
Continue with IV antibiotic
Continue with IV amiodarone
Monitor response with IV Lasix
TPN per surgery
Assessment / Plan
Assessment / Plan
General: Well Developed, Well Nourished and Obese
HEENT: Normocephalic, Atraumatic and Other (NG tube)
Respiratory: Non Labored Respirations
Cardiac: Irregular Rhythm, S1,S2, RVR
Breast: Deferred by me
GI: Ostomy and Other (Drain at surgical site)
Genito-urinary: brewer not much urinary output,
Musculoskeletal: No Clubbing and No Cyanosis
Skin: Warm, Diffuse anasarca noted
Neuro: Awake
Psych: Calm
Impression:
Patient is a 74y F with PMH significant for A-Fib, CHF and anal cancer with recent recurrence who presented to on 03/28 for scheduled surgery for resection of recurrent malignancy. Patient underwent ureteroscopy with bilateral ureteral stents,
robotic APR, BIANKA / BSO, repair of vaginal defect and perineal reconstruction / flap on 03/28/25. She received 2 units PRBC and 1g TXA during the surgeries. Patient was successfully extubated post-op. She was on pressors post-op which were able to
be weaned, but have since been restarted at low dose to maintain adequate perfusion.
Medicine service was consulted for management of patient's multiple medical issues.
Assessment/plan:
Anal Cancer s/p Robotic APR, BIANKA/BSO, Repair of Vaginal Defect, Perineal Reconstruction / Flap
- Continue post-op care per surgical service(s). Pain control.
- Continue with NG tube. NGT clamping trial once with signs of ROBF.
- Pain control. OOB/activity per surgery post op.
- IV Ancef per surgery recommendations.
- Status post debridement on 04/03/2025 of flap to muscle. Pressure offloading plastics.
- Plan to start TPN per surgery as patient without substantial return of bowel function
Acute Blood Loss Anemia
Shock likely secondary to hemorrhagic and hypovolemia
Coagulopathy with thrombocytopenia
- Received 5 units PRBCs total thus far (and 1 g TXA) and 2units of FFP and 10mg of Vitamin K. Hemoglobin at 9.9.
- Currently on low-dose phenylephrine for BP support - wean as able.
- IV ppi. IVF.
- Follow H&H and transfuse additional blood products if needed. If persistent downtrend of hemoglobin may need to consider CT abdomen pelvis
- If persistent downtrend in platelets noted check fibrinogen, D-dimer. Low likelihood of DIC.
Persistent Atrial Fibrillation
- now in RVR. IV amiodarone started.
- Lopressor IV at low dose with holding parameters for BP.
- Eliquis on hold for surgery, blood loss, etc.
- Cardiology following
Anasarca likely secondary to iatrogenic fluid administration PRBC, FFP, IV fluids etfc
- Patient has gained approximately 10 kg
- Agree with 40 mg of IV Lasix and monitor urinary response.
Hypothermia
- Mild hypothermia post-op. Likely combination of anesthesia, blood loss, etc.
- resolved
Acute hypoxic respiratory insufficiency
- Wean O2 as tolerated.
Chronic HFpEF
- Hypotensive at present as noted above.
- Status post 20 mg of IV Lasix earlier in the week.
- Continue to follow accurate I/Os, daily weights, etc.
- IV Lasix PRN for worsening edema, increased weight, etc - as BP allows.
- Patient on only twice weekly Lasix as an outpatient.
DM-II
- Stable. Hold usual oral agents.
- Follow glucose and cover with SSI as needed.
- A1C was 5.7 on 03/26/25.
CKD III
- Stable. SCr is actually improved from prior baseline (1.3 compared to 1.6).
- Follow for changes with fluid shifts / BP changes / etc.
- Avoid nephrotoxic agents / hypotension / etc.
Hypothyroidism
- TFTs normal in February of this year.
- Repeat TFTs given hypothermia- TSH wnl.
- Started on IV levothyroid
Hypocalcemia
Hypomagnesemia
Hypophosphatemia
Hypokalemia
-Replete and monitor
Mild hypernatremia
- Monitor for now. Improved
DVT Prophylaxis: lovenox sc
CODE STATUS: Full code
Anticipated Discharge: > 48 hours
Subjective/Interval History
-
Date of Service: April 04, 2025
Overnight events noted
Patient with decreased urinary output
Remains with NG tube not much output noted in the container
Objective Data
-
Labs:
Laboratory Results
04/04/25 04/04/25
03:43 04:39
WBC 14.5 H
Hgb 9.9 L
Hct 31.5 L
Plt Count 153 D
Sodium Cancelled 145
Potassium Cancelled 5.3 H
Chloride Cancelled 115 H
Carbon Dioxide Cancelled 23
BUN Cancelled 21 H
Creatinine Cancelled 1.5 H
Glucose Cancelled 189 H
Calcium Cancelled 8.0 L
Vital Signs:
Vital Signs
Temp Pulse Resp BP Pulse Ox
98.5 F 100 13 90/64 100
04/04/25 03:09 04/04/25 10:39 04/04/25 06:00 04/04/25 10:39 04/04/25 06:00
I&O
04/03/25 04/04/25 04/05/25
06:59 06:59 06:59
Intake Total 3949.1 / 3973.3 3047.8 / 3176.5 544.8 / 544.8
Output Total 2037 735 / 745 82 / 82
Balance 1911.1 / 1910.3 2312.8 / 2431.5 462.8 / 462.8
--- NOTE | 2025-04-04 11:20 | WOUNDNOTE ---
[facility] RN note: Patient's colostomy pale pink. Peristomal skin scattered red ecchymotic areas with scattered few skin excoriations. Instructed patient how to open and close pouch, and change ostomy appliance using Roddy wafer #[id number], Yaneth seal and
Roddy pouch # [id number]. Patient may benefit from cut to fit soft convex wafer. Ostomy supplies and colostomy teaching folder in room. Stoma almost flush. Small jacinto/brown serous liquid in pouch. Skin on heels intact. R heel blanchable red.
Protective foam applied to heels. Heels off bed with pillow. Patient is on a Total care sport bed. Patient turned to L semi side lying position with help from FLOWER Ledezma. Perineal incision moist purple ecchymotic in appearance, not new as per RN
Brisa. Sacral shaped silicone border foam intact on sacrum. Next colostomy appliance change due Monday.
--- NOTE | 2025-04-04 11:21 | WOUNDNOTE ---
[facility] RN note: Patient's colostomy pale pink. Peristomal skin scattered red ecchymotic areas with scattered few skin excoriations. Will order Miconazole powder. Instructed patient how to open and close pouch, and change ostomy appliance using
[place] wafer #[id number], Yaneth seal and Roddy pouch # [id number]. Patient may benefit from cut to fit soft convex wafer. Ostomy supplies and colostomy teaching folder in room. Stoma almost flush. Small jacinto/brown serous liquid in pouch. Skin on heels
intact. R heel blanchable red. Protective foam applied to heels. Heels off bed with pillow. Patient is on a Total care sport bed. Patient turned to L semi side lying position with help from FLOWER Ledezma. Perineal incision moist purple ecchymotic in
appearance, not new as per FLOWER Ledezma. Sacral shaped silicone border foam intact on sacrum. Next colostomy appliance change due Monday.
[2025-04-04 13:09] LABS: Glucose - Point of Care 191 mg/dl (70-99)
--- NOTE | 2025-04-04 14:37 | PTCARENOTE ---
This RN covering primary RN for lunch break. Patient was working with PT/OT in the room, monitor was alarming for tachycardia in 150s to 160s. This RN went into the room checking the patient, saw patient sitting on the edge of bed, slow response
with commands. Rhythm suddenly changed into wide QRS tachycardia, PT/OT put patient back to bed immediately. Patient was unresponsive to voice and sternal rub, agonal breathing, face colorless, started CPR for a few seconds, patient responded with
voice. Customer Service Specialist at bedside assessing.
--- NOTE | 2025-04-04 14:47 | CM ---
NPO, TPN, IV/AB. Discharge POC: SNF. [facility]. Need to discuss with patient. Defer discussion at this time. She just has a rapid response.
--- NOTE | 2025-04-04 14:55 | W.PN.UPDATE ---
Update Note
Progress Note Update
Update:
Patient had sudden unresponsive episode, agonal breathing noted
Could not palpate pulses, CPR started briefly with patient becoming more vocal to compressions
She is now responsive, answering questions
No medications delivered
BP noted to be 80s systolic, maintained on merrill gtt
Will give 500cc bolus now, repeat bloodwork including d-dimer
Check ABG, add BIPAP PRN
Consideration for CTA if w/u negative
Remains in ICU
[2025-04-04 15:09] LABS: Hematocrit 34.6 % (37.0-47.0); Hemoglobin 10.5 g/dL (12.0-16.0); Mean Corp Hgb Conc. 30.3 g/dL (33.0-37.0); Mean Corpuscular Volume 98.6 fL (81.0-99.0); Platelet Count 162 10^3/uL (130-400); Red Cell Dist. Width 16.8 % (11.5-14.5)
[2025-04-04 15:17] LABS: INR 1.85; PT 21.5 Sec (11.4-14.6)
[2025-04-04 15:18] LABS: APTT 32.1 Sec (23.4-35.0)
[2025-04-04 15:20] LABS: D-Dimer 1.53 ug/mlFEU (0.00-0.50)
--- NOTE | 2025-04-04 15:27 | W.PN.UPDATE ---
Addendum entered and electronically signed by Gerry Bradford MD 04/04/25 17:42:
WBC has apparently bumped to 21. Dr. Scott of critical care is ordering a CT of the chest abdomen and pelvis which is reasonable. This is still pending. I updated the daughter Alysha myself via phone. I emphasized that the patient is quite ill and
may or might not make it through this process. She was very understanding. I told her that I would be covered by Dr. Sanford through the weekend and by Dr. Senior on Monday. She appreciated the update.
Original Note:
Update Note
Progress Note Update
I was notified by Dr. Pham there was a code called overhead. I went into patient's room. Patient was mentating and BP around 80/50's. She was tachycardic in 120's. Per nurses, patient was standing up to work with PT when she had a sharp abdominal
pain and she vagaled. She had 3 chest compressions total before she yelled out. Her breathing was agnoal and she was staring to the left. I examined her wounds and backside - all pink and warm. PRETTY drains are the same. Adam gtt up'ed and pressure went
120's/80's. Cardiology MILK AND CREAM GRADER at bedside as well. I notified my service of events. Alysha called and updated.
[2025-04-04] MEDS: NSS 500 IV (15:30)
[2025-04-04 15:33] LABS: Troponin I 0.021 ng/ml
[2025-04-04 15:36] LABS: AST (SGOT) 528 U/L (14-36); Albumin 2.8 g/dl (3.5-5.0); Alkaline Phosphatase 73 U/L (38-126); Blood Urea Nitrogen 24 mg/dl (7-17); Calcium 8.0 mg/dl (8.4-10.2); Carbon Dioxide 20 mmol/L (22-30); Chloride 113 mmol/L (98-107); Estimated Creatinine Clearance 30 ml/min; Glucose 201 mg/dl (70-99); Magnesium 1.8 mg/dl (1.6-2.3); Potassium 4.7 mmol/L (3.5-5.1); Sodium 144 mmol/L (135-145); Total Protein 5.4 g/dl (6.3-8.2); Triglycerides 131 mg/dl (10-149); eGFR 31.08
[2025-04-04 15:40] LABS: ALT (SGPT) 106 U/L (0-35)
[2025-04-04] MEDS: HEPARIN 5000 UNITS SC (16:33)
[2025-04-04] MEDS: MAGNESIUM SULFATE 50 IV (16:35)
[2025-04-04] MEDS: LEVOTHROID 115 MCG IV (17:14)
[2025-04-04] MEDS: NOVOLOG FLEXPEN 3 UNITS SC (17:30)
[2025-04-04 17:39] LABS: Glucose - Point of Care 199 mg/dl (70-99)
--- NOTE | 2025-04-04 19:31 | PTCARENOTE ---
pt had episode of RVR at 1437 on monitor with low blood pressure while working with physical therapy she was sitting at side of bed and she became unresponsive as per physical therapist for a short time and awoke with nursing at bedside with start
of chest compressions , no Meds given , code 9 cancelled , repeat labs show increased WBC 21.3 , AST elevated 528 / ALT 106 , troponin 0.02 , she had a 2 gram of magnesium given for mag 1.8 , she had a picc line inserted in the L arm for the start
of TPN tonight , she was taken to CT scan for a PE study and abdomen and pelvis results are pending , radiologist called and concerned for NGT placement on CT scan at the GE junction , Dr Pham aware and tube to be advanced passed the GE junction ,
pt son and daughter now in room and updated on current condition and plan of care
--- NOTE | 2025-04-04 19:41 | PTCARENOTE ---
Pt Aox3, VSS, remains on Phenylephrine and Amiodarone, Remains in Afib 100-120. PICC good to use, will finish up Magnesium infusion. Based off of Ct scan NGT needs to be advanced. TPN to start tonight. Left PRETTY drain with no drainage into bulb,
moderate amount of drainage around the site, surgery is aware, Right lower abdominal PRETTY and posterior PRETTY drain with serosanguineous output. Colostomy pink and budded. Hypoactive bowel sounds. No stool out of colostomy. Pt denies pain, Q1 hour turns
with special pillow.
[2025-04-04] MEDS: Parenteral Nutrition, Central 880 IV (21:06)
[2025-04-04] MEDS: CORDARONE 518 MG IV (21:12)
[2025-04-05] VITALS (44 sets, daily range): BP systolic 63–123; BP diastolic 24–96; PULSE 2–122; BMI 40.8
[2025-04-05] MEDS: NOVOLOG FLEXPEN-MODERATE RESISTANCE 3 UNITS SC (00:36)
[2025-04-05] MEDS: NOVOLOG FLEXPEN 3 UNITS SC ×4 (00:37→17:18)
[2025-04-05 00:42] LABS: Glucose - Point of Care 249 mg/dl (70-99)
[2025-04-05] MEDS: HEPARIN 5000 UNITS SC ×3 (00:50→16:54)
[2025-04-05] MEDS: NEO-SYNEPHRINE 250 IV ×2 (01:43→11:43)
[2025-04-05 03:59] LABS: Hematocrit 32.0 % (37.0-47.0); Hemoglobin 9.9 g/dL (12.0-16.0); Mean Corp Hgb Conc. 30.9 g/dL (33.0-37.0); Mean Corpuscular Volume 95.5 fL (81.0-99.0); Platelet Count 129 10^3/uL (130-400); Red Cell Dist. Width 16.6 % (11.5-14.5)
[2025-04-05 04:16] LABS: Blood Urea Nitrogen 31 mg/dl (7-17); Calcium 7.8 mg/dl (8.4-10.2); Carbon Dioxide 24 mmol/L (22-30); Chloride 116 mmol/L (98-107); Estimated Creatinine Clearance 32 ml/min; Glucose 280 mg/dl (70-99); Magnesium 1.9 mg/dl (1.6-2.3); Potassium 4.8 mmol/L (3.5-5.1); Sodium 144 mmol/L (135-145); eGFR 33.42
[2025-04-05] MEDS: NOVOLOG FLEXPEN-MODERATE RESISTANCE 300 UNITS SC (06:15)
[2025-04-05 06:24] LABS: Glucose - Point of Care 274 mg/dl (70-99)
--- NOTE | 2025-04-05 07:02 | W.PN.INTV ---
Today's Communication / Plan
Recommendations
Imaging overnight showing effusions possible PNA, intra-ab with small air
Broaden abx today
Lasix trials
BIPAP nightly and PRN -- was not placed overnight, order placed again
Wean pressors as able, will try PO midodrine
Assessment
-
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
status post robotic abdominoperineal resection, BIANKA/BSO, VRAM flap perineal reconstruction, 03/28. Patient admitted to ICU postoperatively given significant blood loss, hypotension requiring pressors
Shock, hemorrhagic related to blood loss and likely post-op vasoplegia
Coagulopathy, suspect transfusion related
S/p robotic abdominoperineal resection, BIANKA/BSO, repair of vaginal defect, VRAM flap perineal reconstruction, 03/28/25
Concern for superficial necrosis of flap, s/p excisional debridement to muscle 10 x 30 cm with adjacent tissue transfer/ 04/03
OSMANY
Leukocytosis
Thrombocytopenia
Hyperkalemia
Hyperglycemia
Kleb UTI
Conditions present prior to admission
History of CKD stage IIIb
Diabetes
Anal squamous cell cancer, stage III
Diagnosed November 2023
s/p chemotherapy/radiation at [place]
Recurrence of disease per pelvic MRI January 2025
Follows oncology ([facility])
Atrial fibrillation on Eliquis
Now off amiodarone Per cardiology, remains on beta-joseph (Shadi)
Moderate pulm hypertension, echo March 2025, stable compared to prior echo
With dilated RV, normal function, PA pressure 66
Normal EF
Moderate mitral stenosis
History of stroke 1994 and again 2022 per patient
Suspected sleep apnea
Hypothyroidism
Plan:
Extubated and weaned off sedation
Pain control
Rass goal 0
Shock, hemorrhagic related to blood loss and likely post-op vasoplegia- Still requiring low dose merrill
Wean pressor as tolerated, midodrine PO if able to take meds
s/p 4 units of PRBC--Serial H&H. Hematocrit stable
Suspect RVR with A fib also contributing to hypotension and difficulty weaning of Levophed.
Eliquis on hold in view of bleeding.
Amiodarone bolus and infusion started 04/02, Cardiology consult, tachycardia better controlled.
Chronic HFpEF - f/u CXR stable - lasix continues to be on hold
Unresponsive episode 04/04 possible vagal--repeat CT with effusions, possible PNA--small air in belly
Continue telemetry monitoring
Extubated and doing well
Remains on low supplemental o2, wean to off
Chest x-ray without acute findings
Encourage out of bed, I-S
Aspiration precautions
BIPAP added
Currently n.p.o., NG tube in place
S/p robotic abdominoperineal resection, BIANKA/BSO, repair of vaginal defect, VRAM flap perineal reconstruction, 03/28/25
Complicated by blood loss, 1 L per OR records. TXA given intra-operatively
Likely to start TPN, colorectal following
Diet advancement per team
On ancef for kelb UTI
Given increasing WBC, can broaden abx
If not improving, may consider ID consult
Concern for superficial necrosis of flap, 04/03
Patient returned to OR for excisional debridement
- followed by plastics
Coagulopathy, suspect transfusion related
INR noted to be elevated, give vitamin K 10 mg IV 03/31
Fresh frozen plasma, 2 units, IV calcium given for hypocalcemia 03/31
If additional blood transfusion needed will give FFP and platelets along with PRBC
Follow CBC
Mild OSMANY - Decreased urine out put, dry mouth, also hypotensive, suspect intra-vascular hypovolemia
s/p > 2 ltr LR and Albumin over last 24 hrs
Initiate LR infusion at 100/h. Labs in AM. Avoid hypotension.
Follow creat, IOs
Replete electrolytes as needed
DVT prophylaxis: Subcu Lovenox ordered.
GI prophylaxis: Protonix
Data:
CXR 04/02/25- Low lung volumes with patchy bibasilar opacities, likely atelectasis and/or small effusion. No significant effusions or pneumothorax appreciated.
03/28/25- Nasogastric tube is present with tip near the gastroesophageal junction and distal sidehole in the distal esophagus. Consideration for advancement of this tube. Interstitial edema. Linear atelectasis in the right midlung. Mild to moderate
elevation of the left hemidiaphragm, new since previous radiograph. Probable small bilateral pleural effusions.
CT CAP 02/21/25- Circumferential anal wall thickening consistent with known malignancy versus posttreatment change. Probably stable. No evidence of metastatic disease. However, extremely limited exam without IV contrast. Tiny pericardial effusion.
Stable. Progressed small right and new tiny left pleural effusions. Findings suggesting moderate bilateral lower lobe and mild upper lobe pneumonia. New. Mild mediastinal lymphadenopathy. Probably reactive. Stable. Gallstones. Stable. Mild diffuse
bladder wall thickening. This can be seen with cystitis or bladder outlet obstruction. Improved.
Findings suggesting bilateral lower third spacing. Progressed
Echo 03/25/2025: Normal biventricular function with mildly dilated RV, moderate mitral stenosis, severe TR, PA pressure 66
-----
Critical Care time 32 mins -- The patient is admitted for acute critical illness for the treatment of vital organ failure and/or prevention of further life-threatening conditions. Total care includes time spent in review of history, physical exam,
medications, hemodynamic/ventilator parameters, laboratory data, imaging and discussion with house staff, pharmacy, respiratory therapy, leather softener, and nursing.
Subjective Dataa
Subjective Data
Date of Service:
Date of Service: April 05, 2025
Chief Complaint: Informatica Developer Follow Up
Subjective:
Remains on pressors, no other overnight events
No new complaints
Objective Data
Data Reviewed
Vital Signs / I&O / Oxygen:
Vital Signs
Temp Pulse Resp BP Pulse Ox
97.8 F 100 14 97/71 100
04/04/25 19:00 04/05/25 04:30 04/05/25 04:30 04/05/25 04:30 04/05/25 04:30
Intake and Output
04/04/25 04/05/25 04/06/25
06:59 06:59 06:59
Intake Total 3047.8 / 3176.5 3912.8 / 3912.8
Output Total 735 / 745 1422 / 1422
Balance 2312.8 / 2431.5 2490.8 / 2490.8
SaO2 100
Nasal Cannula flow liters per 2
minute
Physical Exam
General: Comfortable, Poor Appetite and Other (NAD)
HEENT: Normocephalic, Anicteric and Moist Mucous Membranes
Cardiovascular: S1-S2, Regular Rhythm, Murmur (n) and Rub (n)
Respiratory: Clear, Wheeze (n), Crackles (n), Rhonchi (n) and Non-Labored Respirations
GI: Soft, Non Distended, Non Tender, NG Tube (Ostomy, PRETTY drains) and Other (abdominal incisions are noted)
Neurology: Awake, Alert, Oriented and No Motor Deficits (Generally weak)
Skin: Good Color (Mild pallor), Jaundice (n) and Rash (n)
Labs/Micro/Reports
Lab Data
04/05/25 03:37
04/05/25 03:37
Laboratory Results
04/04/25 04/04/25
14:51 14:52
PT 21.5 H
INR 1.85
APTT 32.1
pH Cancelled
pCO2 Cancelled
pO2 Cancelled
HCO3 Cancelled
O2 Delivery Level Cancelled
--- NOTE | 2025-04-05 07:19 | W.PN.UPDATE ---
Update Note
Progress Note Update
Plastic Surgery Note
Reviewed events of yesterday and associated labs, imaging. At present, there does not seem to be a surgical reason for her leukocytosis. No abscesses or undrained coillections in her abdomen or pelvis identified on CT. All potentially nonviable flap
elements had previously been debrided.
Will continue to follow and assist as needed
Continue with pressure offloading
[2025-04-05 07:51] LABS: ALT (SGPT) 151 U/L (0-35); AST (SGOT) 606 U/L (14-36); Albumin 2.5 g/dl (3.5-5.0); Alkaline Phosphatase 77 U/L (38-126); Total Protein 5.0 g/dl (6.3-8.2)
[2025-04-05] MEDS: LASIX 20 MG IV (08:25)
[2025-04-05] MEDS: NSS (PRESERVATIVE FREE) 10 ML IV (08:25)
[2025-04-05] MEDS: PROTONIX IV 40 MG IV (08:25)
[2025-04-05] MEDS: ANCEF 5 IV (08:26)
[2025-04-05] MEDS: MYCOSTATIN CREAM 1 APPLIC TOPICAL ×2 (08:26→21:02)
[2025-04-05] MEDS: DESENEX/MITRAZOL/ZEASORB 1 APPLIC TOPICAL ×2 (08:26→21:02)
--- NOTE | 2025-04-05 08:40 | PTCARENOTE ---
Rec'd pt at 0700. Pt sleeping but easily awakens, orientedx3. Follows commands, MANZANO with gen weakness. Monitor Afib 90-100's, Amio gtts infusing at 0.5mg/min via right SQport. SBP 90-100's, Adam gtts to keep MAP>65. Lungs dim, pox 100% 3LNC. NGT to
LIWS, bilious drainage. 2 abd PRETTY and 1 posterior PRETTY site intact. Midline incision SURVEILLANCE DIRECTOR. Lower abdomen with abds in place. Left colostomy with no output noted, stoma moist/pink. Rogers draining horace urine. TPN infusing via JO PICC. Pt on lateral
rotation mattress.
[2025-04-05 09:55] LABS: Venous Blood Gas B.E. -3.8 mmol/L (-4 to +4); Venous Blood Gas O2 Sat % 96.4 %
--- NOTE | 2025-04-05 11:40 | W.PN.CD ---
Today's Communication / Plan
-
- More diuresis today
- Follow BMP
Impression / Plan
-
Anal cancer:
- s/p robotic abdominoperineal resection, repair of vaginal defect, robotic total laparoscopic hysterectomy, bilateral salpingo-oophorectomy, vertical rectus abdominis myocutaneous flap reconstruction of the perineum, cystoscopy and bilateral
ureteral stent insertion (03/28/25)
- post-op course complicated by hypotension requiring blood products, fluid, vasopressors (suspected hemorrhagic shock- diagnosis is threat to life)
- S/p hemophagic shock, s/p 5 U PRBC (4 on 03/28/2025 and 1 on 03/31/2025)
Persistent AFib
- Rate ok on Amio => using amio b/c of BP, later move to BB
- Resume Eliquis when appropriate
Chronic HFpEF:
- Seems comfortable
- From her critical illness and support her weight is way up from baseline 86.3 kg. Now at 98 kg
- Had one dose of Lasix yesterday 04/04/2025 but weight not down
- More diuresis today
Pacemaker followed in our office
Subjective: denies CP or dyspnea
Data:
Echo 03/25/25: LVEF 55-60%. Mod MS, mean 5 mmHg. Mod-severe TR, est PASP 66 mmHg, est RA 8 mmHg. Stable from 02/15/2024
Physical Exam
Vital Signs/Labs
Vital Signs
Temp Pulse Resp BP Pulse Ox
97.5 F 101 15 95/65 100
04/05/25 11:12 04/05/25 10:00 04/05/25 10:00 04/05/25 10:00 04/05/25 10:00
04/04/25 04/05/25 04/06/25
06:59 06:59 06:59
Actual Weight 95.98 kg 98.004 kg
04/05/25 03:37
04/05/25 03:37
PT 21.5 Sec (11.4-14.6) H 04/04/25 14:51
INR 1.85 04/04/25 14:51
APTT 32.1 Sec (23.4-35.0) 04/04/25 14:51
Magnesium 1.9 mg/dl (1.6-2.3) 04/05/25 03:37
Triglycerides 131 mg/dl (10-149) 04/04/25 14:50
LAB Results
04/04/25
14:51
Troponin I 0.021
Physical Exam
Constitutional: No acute distress
Cardiovascular: Rhythm/rate is irregular and S1S2 is normal
Respiratory: Respiratory effort normal and Lungs clear to auscul.
GI: Soft and Distention absent
Neuro/Psych: Alert
Data Reviewed
-
Date of Service: April 05, 2025
[2025-04-05] MEDS: ZOSYN 50 IV ×2 (11:44→17:10)
[2025-04-05 11:45] LABS: Glucose - Point of Care 324 mg/dl (70-99)
[2025-04-05] MEDS: NOVOLOG FLEXPEN-MODERATE RESISTANCE 7 UNITS SC ×3 (11:47→22:48)
[2025-04-05] MEDS: NOVOLIN N vial 0.05 UNITS SC (12:02)
--- NOTE | 2025-04-05 12:20 | PTCARENOTE ---
No changes in assessment. Pt dozing on and off throughout morning.
--- NOTE | 2025-04-05 12:29 | W.PN.HOSP.TC ---
Today's Communication/Plan
-
Wean pressors as tolerated
IV amiodarone
IV abx broadened to Zosyn
Monitor response to diuretics
Assessment / Plan
Assessment / Plan
General: Well Developed, Well Nourished and Obese
HEENT: Normocephalic, Atraumatic and Other (NG tube)
Respiratory: Non Labored Respirations
Cardiac: Irregular Rhythm, S1,S2, RVR
Breast: Deferred by me
GI: Ostomy and Other (Drain at surgical site)
Genito-urinary: brewer not much urinary output,
Musculoskeletal: No Clubbing and No Cyanosis
Skin: Warm, Diffuse anasarca noted
Neuro: Awake
Psych: Calm
Impression:
Patient is a 74y F with PMH significant for A-Fib, CHF and anal cancer with recent recurrence who presented to on 03/28 for scheduled surgery for resection of recurrent malignancy. Patient underwent ureteroscopy with bilateral ureteral stents,
robotic APR, BIANKA / BSO, repair of vaginal defect and perineal reconstruction / flap on 03/28/25. She received 2 units PRBC and 1g TXA during the surgeries. Patient was successfully extubated post-op. She was on pressors post-op which were able to
be weaned, but have since been restarted at low dose to maintain adequate perfusion.
Medicine service was consulted for management of patient's multiple medical issues.
Assessment/plan:
Anal Cancer s/p Robotic APR, BIANKA/BSO, Repair of Vaginal Defect, Perineal Reconstruction / Flap
Concern for superficial necrosis of the flap
- Continue post-op care per surgical service(s). Pain control.
- Continue with NG tube. NGT clamping trial once with signs of ROBF.
- Pain control. OOB/activity per surgery post op.
- IV Ancef transition to Zosyn as below.
- Status post debridement on 04/03/2025 of flap to muscle. Pressure offloading plastics.
- Plan to start TPN per surgery as patient without substantial return of bowel function
Acute Blood Loss Anemia
Shock likely secondary to hemorrhagic and hypovolemia
Coagulopathy with thrombocytopenia
- Received 5 units PRBCs total thus far (and 1 g TXA) and 2units of FFP and 10mg of Vitamin K. Hemoglobin at 9.9.
- Currently on low-dose phenylephrine for BP support - wean as able.
- IV ppi. IVF has been stopped.
- Follow H&H and transfuse additional blood products if needed. If persistent downtrend of hemoglobin may need to consider CT abdomen pelvis
- If persistent downtrend in platelets noted check fibrinogen, D-dimer. Low likelihood of DIC.
Leukocytosis
- Likely multifactorial due to reactive versus UTI versus pneumonia
- Ancef switched to Zosyn
Vasovagal episode on 04/04/2025
- Likely multifactorial in the setting of shock, atrial fibrillation, hypovolemia, fluid shift
- Blood pressure stabilized to some extent. Remains on pressors.
Persistent Atrial Fibrillation
- now in RVR. IV amiodarone started.
- Lopressor IV at low dose with holding parameters for BP.
- Eliquis on hold for surgery, blood loss, etc.
- Cardiology following
Anasarca likely secondary to iatrogenic fluid administration PRBC, FFP, IV fluids etc
- RUE venous doppler pending
- Patient has gained approximately 11.8 kg
- Currently on 40 mg of IV Lasix. Monitor urinary output. May require additional diuresis.
Transaminitis likely secondary to shock
Hypothermia
- Mild hypothermia post-op. Likely combination of anesthesia, blood loss, etc.
- resolved
Acute hypoxic respiratory insufficiency
- Wean O2 as tolerated.
Chronic HFpEF
- Hypotensive at present as noted above.
- Continue to follow accurate I/Os, daily weights, etc.
-
DM-II
- Stable. Hold usual oral agents.
- Follow glucose and cover with SSI as needed.
- A1C was 5.7 on 03/26/25.
CKD III
- Stable. SCr is actually improved from prior baseline (1.3 compared to 1.6).
- Monitor urinary output.
Hypothyroidism
- TFTs normal in February of this year.
- Repeat TFTs given hypothermia- TSH wnl.
- Started on IV levothyroid
Hypocalcemia
Hypomagnesemia
Hypophosphatemia
Hypokalemia
-Replete and monitor
Mild hypernatremia
- Monitor for now. Improved
DVT Prophylaxis: hep sc
CODE STATUS: Full code
Anticipated Discharge: > 48 hours
Subjective/Interval History
-
Date of Service: April 05, 2025
Yesterday events noted
Remains in atrial fibrillation
Currently dozing off. But does open her eyes.
States of intermittent abdominal pain.
Objective Data
-
Labs:
Laboratory Results
04/05/25 04/05/25
03:37 07:15
WBC 22.8 H
Hgb 9.9 L
Hct 32.0 L
Plt Count 129 L D
HCO3 Cancelled
Sodium 144
Potassium 4.8
Chloride 116 H
Carbon Dioxide 24
BUN 31 H
Creatinine 1.6 H
Glucose 280 H
Calcium 7.8 L
Total Bilirubin 1.3
AST 606 H*
ALT 151 H
Alkaline Phosphatase 77
Vital Signs:
Vital Signs
Temp Pulse Resp BP Pulse Ox
97.5 F 101 15 95/65 100
04/05/25 11:12 04/05/25 10:00 04/05/25 10:00 04/05/25 10:00 04/05/25 10:00
I&O
04/04/25 04/05/25 04/06/25
06:59 06:59 06:59
Intake Total 3047.8 / 3176.5 3912.8 / 4090.5 1116.2 / 1116.2
Output Total 735 / 745 1422 / 1422 110 / 110
Balance 2312.8 / 2431.5 2490.8 / 2668.5 1006.2 / 1006.2
Data Reviewed
-
Total Time Spent with Patient (in minutes): 55
[2025-04-05] MEDS: LASIX 40 MG IV (12:32)
[2025-04-05] MEDS: DILAUDID 0.5 MG IV (12:36)
--- NOTE | 2025-04-05 13:23 | W.PN.GS2 ---
Addendum entered and electronically signed by Hany Sanford MD 04/05/25 13:51:
Patient seen and examined. Agree with assessment plan as documented below.
Original Note:
Today's Communication / Plan
-
TPN
US RUE
Assessment / Plan
-
74 yo female s/p adjunctive chemo now presenting for operative management of anal cancer
POD #8 RAL APR (CRS), vaginal defect repair with BIANKA/BSO (SALES DEVELOPMENT DIRECTOR) and VRAM flap (Plastics)
POD #2 Excisional Debridement to muscle [id number] of superficial necrotic tissue, adjacent tissue transfer [id number]
Leukocytosis persists, unclear etiology
H/H stable s/p 2 units FFP and 5 units PRBC's total this admit, last transfusion was on 03/31
High PRETTY outputs but remains light serosang
Afebrile, hypotensive and on pressor (norepi), mild tachycardia (on amio gtt)
NGT with bilious outputs, ostomy without stool outputs currently. Await bowel recovery.
Renal function stable
Hyperglycemia with initiation of TPN
Plan:
Continue NPO with NGT in place to suction and await return of bowel function
Continue TPN at starting dose until better glycemic control
Vasc US of RUE
IVF as per primary team
Ancef as per plastics
Stoma nurse following for soma care
c/w PRETTY drains, follow outputs
IS while awake
Follow labs
C/W brewer
Analgesics prn
PPI for GI ppx
Heparin SQ for VTE ppx
Medical anagement as per ICU/medicine teams
Subjective Data
-
Date of Service: April 05, 2025
Pt seen and examined at bedside with Dr Sanford. Denies nausea, vomiting. Pain well managed. Tired.
Objective Data
-
Intake and Output
04/04/25 04/05/25 04/06/25
06:59 06:59 06:59
Intake Total 3047.8 / 3176.5 3912.8 / 4090.5 1293.9 / 1293.9
Output Total 735 / 745 1422 / 1472 490 / 490
Balance 2312.8 / 2431.5 2490.8 / 2618.5 803.9 / 803.9
Intake:
IV fluids (Total) 2987.8 / 3116.5 3352.8 / 3493.5 984.9 / 984.9
Amiodarone. 400.8 / 417.5 400.8 / 417.5 116.9 / 116.9
Lr 1,000 ml @ 100 mls/hr IV . 200 / 200
Q10H CARLOS Rx#:[id number]
Lr 1,000 ml @ 100 mls/hr IV . 2100 / 2200 2400 / 2500 700 / 700
Q10H CARLOS Rx#:[id number]
Neosyneprhrine 227.0 / 239.0 552 / 576 168 / 168
Norepinephrine 60.0 / 60.0
IV piggybacks 500 / 500 50 / 50
TPN/PPN 259 / 259
Amount instilled into GI Tube ( 60 / 60 60 / 60
Total)
[place] Sump 60 / 60 60 / 60
Output:
Drain Output (Total) 315 / 315 732 / 732 200 / 200
C 40 / 40
Left Lower Abdomen Pierce- 100 / 100 0 / 0
[place]
Right Lower Abdomen Pierce- 125 / 125 530 / 530 160 / 160
[place] B
Sacrum [place] C 50 / 50 202 / 202 40 / 40
Gastrointestinal tube output ( 0 / 0 300 / 300
Total)
[place] Sump 0 / 0 300 / 300
Urine, Brewer 420 / 430 390 / 440 290 / 290
Vital Signs
Temp Pulse Resp BP Pulse Ox
97.5 F 102 16 108/78 100
04/05/25 11:12 04/05/25 12:30 04/05/25 12:30 04/05/25 12:30 04/05/25 12:30
Lab Results
04/05/25 03:37
04/05/25 03:37
Calcium 7.8 mg/dl (8.4-10.2) L 04/05/25 03:37
Phosphorus 3.5 mg/dl (2.5-4.5) 04/05/25 03:37
Magnesium 1.9 mg/dl (1.6-2.3) 04/05/25 03:37
Total Bilirubin 1.3 mg/dl (0.2-1.3) 04/05/25 03:37
Direct Bilirubin 0.7 mg/dl (0.0-0.4) H 04/05/25 03:37
AST 606 U/L (14-36) H* 04/05/25 03:37
ALT 151 U/L (0-35) H 04/05/25 03:37
Alkaline Phosphatase 77 U/L (38-126) 04/05/25 03:37
Total Protein 5.0 g/dl (6.3-8.2) L 04/05/25 03:37
Albumin 2.5 g/dl (3.5-5.0) L 04/05/25 03:37
Physical Exam
-
NAD
ABD soft, expected incisional tenderness, nd
RUE with edema/ecchymosis. Warm to upper arm, nontender
Stoma pink/viable no stool in appliance
JPs with SSF
NGT with bilious outputs
Brewer with horace urine
Patient has a brewer catheter: Yes
[2025-04-05] MEDS: LEVOTHROID 115 MCG IV (17:09)
[2025-04-05 17:28] LABS: Glucose - Point of Care 333 mg/dl (70-99)
[2025-04-05] MEDS: Parenteral Nutrition, Central 880 IV (21:03)
[2025-04-05] MEDS: OFIRMEV 100 IV (21:33)
[2025-04-05] MEDS: LANTUS 0.08 UNITS SC (22:22)
[2025-04-05 22:36] LABS: Glucose - Point of Care 337 mg/dl (70-99)
[2025-04-06] VITALS (25 sets, daily range): BP systolic 69–108; BP diastolic 48–88; BMI 40.9
[2025-04-06] MEDS: HEPARIN 5000 UNITS SC ×2 (00:17→08:00)
[2025-04-06] MEDS: ZOSYN 50 IV ×5 (00:17→23:07)
[2025-04-06] MEDS: NOVOLOG FLEXPEN 3 UNITS SC (00:26)
[2025-04-06] MEDS: NEO-SYNEPHRINE 250 IV ×2 (00:36→15:26)
[2025-04-06] MEDS: DILAUDID 0.25 MG IV (00:55)
[2025-04-06 02:21] LABS: Glucose - Point of Care 332 mg/dl (70-99)
[2025-04-06] MEDS: NOVOLIN R INSULIN INFUSION 100 IV ×2 (02:33→09:52)
[2025-04-06] MEDS: NOVOLIN R 6 UNITS IV (02:47)
[2025-04-06 03:59] LABS: Glucose - Point of Care 318 mg/dl (70-99)
[2025-04-06 04:18] LABS: Blood Urea Nitrogen 41 mg/dl (7-17); Calcium 7.8 mg/dl (8.4-10.2); Carbon Dioxide 25 mmol/L (22-30); Chloride 116 mmol/L (98-107); Estimated Creatinine Clearance 33 ml/min; Glucose 317 mg/dl (70-99); Magnesium 1.9 mg/dl (1.6-2.3); Potassium 4.0 mmol/L (3.5-5.1); Sodium 145 mmol/L (135-145); eGFR 33.42
[2025-04-06] MEDS: CORDARONE 518 MG IV (04:21)
[2025-04-06 05:12] LABS: Glucose - Point of Care 279 mg/dl (70-99)
--- NOTE | 2025-04-06 05:33 | PTCARENOTE ---
Addendum entered by Emelyn Carter RN 04/06/25 06:22:
Pt wore Bipap for 1.5-2hours and then could no longer tolerate.
Original Note:
Pt Aox3, VSS with Amiodarone gtt, and Adam gtt and TPN continued. Insulin gtt started for consistent BG above 300. Midodrine [id number]. Afib on monitor w/ bbb and PVCs. +2 Anasarca. urine output 25ml/hr. Awaiting US of right upper extremity, arm is
ecchymotic, swollen and beginning to weap, wrapped and elevated. Afebrile. C/o pain in lower right buttock and abdomen, off loading as much as possible with rotating every hour. PRN Tylenol and Dilaudid given with relief. x3 PRETTY drains, intact. Drain
'A' has purulent output. Midline incision approximated, open to air. Sacral/perineal flap blanchable, bleeding at incision site, dressed. Pt bathed with CHG wipes.
[2025-04-06 06:16] LABS: Glucose - Point of Care 269 mg/dl (70-99)
[2025-04-06 07:16] LABS: Glucose - Point of Care 224 mg/dl (70-99)
[2025-04-06] MEDS: NOVOLOG FLEXPEN SC ×3 (07:16→16:08)
--- NOTE | 2025-04-06 07:16 | W.PN.INTV ---
Today's Communication / Plan
Recommendations
PO midodrine, weaning down on pressors
Continue IV lasix
IV zosyn continued, wbc trending down now
Diet advancement per team, tpn continued necessitating insulin gtt
PT/OT
Assessment
-
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
status post robotic abdominoperineal resection, BIANKA/BSO, VRAM flap perineal reconstruction, 03/28. Patient admitted to ICU postoperatively given significant blood loss, hypotension requiring pressors
Shock, hemorrhagic related to blood loss and likely post-op vasoplegia
Coagulopathy, suspect transfusion related
S/p robotic abdominoperineal resection, BIANKA/BSO, repair of vaginal defect, VRAM flap perineal reconstruction, 03/28/25
Concern for superficial necrosis of flap, s/p excisional debridement to muscle 10 x 30 cm with adjacent tissue transfer/ 04/03
OSMANY
Leukocytosis
Thrombocytopenia
Hyperkalemia
Hyperglycemia
Kleb UTI
Conditions present prior to admission
History of CKD stage IIIb
Diabetes
Anal squamous cell cancer, stage III
Diagnosed November 2023
s/p chemotherapy/radiation at [place]
Recurrence of disease per pelvic MRI January 2025
Follows oncology ([facility])
Atrial fibrillation on Eliquis
Now off amiodarone Per cardiology, remains on beta-joseph (Shadi)
Moderate pulm hypertension, echo March 2025, stable compared to prior echo
With dilated RV, normal function, PA pressure 66
Normal EF
Moderate mitral stenosis
History of stroke 1994 and again 2022 per patient
Suspected sleep apnea
Hypothyroidism
Plan:
Extubated and weaned off sedation
Pain control
Rass goal 0
Shock, hemorrhagic related to blood loss and likely post-op vasoplegia- Still requiring low dose adam
Wean pressor as tolerated, midodrine PO continued
s/p 4 units of PRBC--Serial H&H. Hematocrit stable
Suspect RVR with A fib also contributing to hypotension and difficulty weaning of Levophed.
Eliquis on hold in view of bleeding.
Amiodarone bolus and infusion started 04/02, Cardiology consult, tachycardia better controlled.
Chronic HFpEF - f/u CXR stable - lasix resumed 40 IV
Unresponsive episode 04/04 possible vagal--repeat CT with effusions, possible PNA--small air in belly
Continue telemetry monitoring
Extubated and doing well
Remains on low supplemental o2, wean to off
Chest x-ray without acute findings
Encourage out of bed, I-S
Aspiration precautions
BIPAP added
Currently n.p.o., NG tube in place
S/p robotic abdominoperineal resection, BIANKA/BSO, repair of vaginal defect, VRAM flap perineal reconstruction, 03/28/25
Complicated by blood loss, 1 L per OR records. TXA given intra-operatively
Continues TPN, colorectal following
Diet advancement per team
On ancef for kelb UTI
Given increasing WBC, can broaden abx--now on zosyn
WBC now trending down
Continue for now
Concern for superficial necrosis of flap, 04/03
Patient returned to OR for excisional debridement - followed by plastics
Coagulopathy, suspect transfusion related
INR noted to be elevated, give vitamin K 10 mg IV 03/31
Fresh frozen plasma, 2 units, IV calcium given for hypocalcemia 03/31
If additional blood transfusion needed will give FFP and platelets along with PRBC
Follow CBC
Mild OSMANY - Decreased urine out put, dry mouth, also hypotensive, suspect intra-vascular hypovolemia
s/p > 2 ltr LR and Albumin over last 24 hrs
Initiate LR infusion at 100/h. Labs in AM. Avoid hypotension.
Follow creat, IOs
Replete electrolytes as needed
Insulin protocol started due to hyperglycemia with tpn
accu checks q1
DVT prophylaxis: Subcu Lovenox ordered.
GI prophylaxis: Protonix
Data:
CXR 04/02/25- Low lung volumes with patchy bibasilar opacities, likely atelectasis and/or small effusion. No significant effusions or pneumothorax appreciated.
03/28/25- Nasogastric tube is present with tip near the gastroesophageal junction and distal sidehole in the distal esophagus. Consideration for advancement of this tube. Interstitial edema. Linear atelectasis in the right midlung. Mild to moderate
elevation of the left hemidiaphragm, new since previous radiograph. Probable small bilateral pleural effusions.
CT CAP 02/21/25- Circumferential anal wall thickening consistent with known malignancy versus posttreatment change. Probably stable. No evidence of metastatic disease. However, extremely limited exam without IV contrast. Tiny pericardial effusion.
Stable. Progressed small right and new tiny left pleural effusions. Findings suggesting moderate bilateral lower lobe and mild upper lobe pneumonia. New. Mild mediastinal lymphadenopathy. Probably reactive. Stable. Gallstones. Stable. Mild diffuse
bladder wall thickening. This can be seen with cystitis or bladder outlet obstruction. Improved.
Findings suggesting bilateral lower third spacing. Progressed
Echo 03/25/2025: Normal biventricular function with mildly dilated RV, moderate mitral stenosis, severe TR, PA pressure 66
-----
Critical Care time 32 mins -- The patient is admitted for acute critical illness for the treatment of vital organ failure and/or prevention of further life-threatening conditions. Total care includes time spent in review of history, physical exam,
medications, hemodynamic/ventilator parameters, laboratory data, imaging and discussion with house staff, pharmacy, respiratory therapy, auto electrical technician, and nursing.
Subjective Dataa
Subjective Data
Date of Service:
Date of Service: April 06, 2025
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
Subjective:
No acute events ON, remains on tpn, insulin gtt
Adam @40, titrating down
Objective Data
Data Reviewed
Vital Signs / I&O / Oxygen:
Vital Signs
Temp Pulse Resp BP Pulse Ox
97.6 F 106 14 108/72 100
04/06/25 04:01 04/06/25 05:00 04/06/25 05:00 04/06/25 05:00 04/06/25 05:00
Intake and Output
04/05/25 04/06/25 04/07/25
06:59 06:59 06:59
Intake Total 4282.8 / 4460.5 2533.8 / 2533.8
Output Total 1422 / 1472 2400 / 2400
Balance 2860.8 / 2988.5 133.8 / 133.8
SaO2 100
Nasal Cannula flow liters per 2
minute
Physical Exam
General: Comfortable, Poor Appetite and Other (NAD)
HEENT: Normocephalic, Anicteric and Moist Mucous Membranes
Cardiovascular: S1-S2, Regular Rhythm, Murmur (n) and Rub (n)
Respiratory: Clear, Wheeze (n), Crackles (n), Rhonchi (n) and Non-Labored Respirations
GI: Soft, Non Distended, Non Tender, NG Tube (Ostomy, PRETTY drains) and Other (abdominal incisions are noted)
Neurology: Awake, Alert, Oriented and No Motor Deficits (Generally weak)
Skin: Good Color (Mild pallor), Jaundice (n) and Rash (n)
Labs/Micro/Reports
Lab Data
04/05/25 03:37
04/06/25 03:30
Laboratory Results
04/05/25
07:15
pH Cancelled
pCO2 Cancelled
pO2 Cancelled
HCO3 Cancelled
O2 Delivery Level Cancelled
[2025-04-06] MEDS: PROTONIX IV 40 MG IV (08:00)
[2025-04-06] MEDS: NSS (PRESERVATIVE FREE) 10 ML IV (08:00)
[2025-04-06] MEDS: LASIX 40 MG IV (08:00)
[2025-04-06] MEDS: DESENEX/MITRAZOL/ZEASORB 1 APPLIC TOPICAL ×2 (08:01→23:06)
[2025-04-06] MEDS: MYCOSTATIN CREAM 1 APPLIC TOPICAL ×2 (08:01→20:09)
[2025-04-06] MEDS: SODIUM PHOSPHATE 255 MEQ IV (08:01)
[2025-04-06 08:10] LABS: Glucose - Point of Care 223 mg/dl (70-99)
[2025-04-06 08:11] LABS: ALT (SGPT) 143 U/L (0-35); AST (SGOT) 224 U/L (14-36); Albumin 2.2 g/dl (3.5-5.0); Alkaline Phosphatase 64 U/L (38-126); Total Protein 4.6 g/dl (6.3-8.2)
--- NOTE | 2025-04-06 08:12 | PTCARENOTE ---
Rec'd pt at 0700. Pt drowsy, easily arousable. Follows commands, MANZANO with gen weakness. Monitor Afib 110-120's on Amio 0.5mg/hr. Lungs dim, pox 97% 2LNC. NGT to LIWS, bilious drainage. 2 abd PRETTY sites and 1 posterior PRETTY site intact to bulb suction.
Midline incision ACUTE CARE NURSING ASSISTANT. Rogers draining horace urine. Pt repositioned, remains on lateral rotation mattress. TPN infusing via JO PICC, Insulin gtts with q1 hr accuchecks.
[2025-04-06 08:19] LABS: Hematocrit 29.3 % (37.0-47.0); Hemoglobin 9.0 g/dL (12.0-16.0); Mean Corp Hgb Conc. 30.7 g/dL (33.0-37.0); Mean Corpuscular Volume 96.7 fL (81.0-99.0); Nucleated Red Blood Cells % 4.2 %; Platelet Count 52 10^3/uL (130-400); Red Cell Dist. Width 16.6 % (11.5-14.5)
[2025-04-06 09:14] LABS: Glucose - Point of Care 193 mg/dl (70-99)
[2025-04-06 10:13] LABS: Glucose - Point of Care 162 mg/dl (70-99)
--- NOTE | 2025-04-06 10:46 | W.PN.HOSP.TC ---
Today's Communication/Plan
-
Continue with IV diuresis
Continue with IV amiodarone
Continue with IV Zosyn
Continue with TPN
Replete Phos
Monitor urinary output
Assessment / Plan
Assessment / Plan
General: Well Developed, Well Nourished and Obese
HEENT: Normocephalic, Atraumatic and Other (NG tube)
Respiratory: Non Labored Respirations
Cardiac: Irregular Rhythm, S1,S2, RVR
Breast: Deferred by me
GI: Ostomy without output and Other (Drain at surgical site) remains with output
Genito-urinary: brewer
Musculoskeletal: No Clubbing and No Cyanosis
Skin: Warm, Diffuse anasarca noted
Neuro: Awake
Psych: Calm
Impression:
Patient is a 74y F with PMH significant for A-Fib, CHF and anal cancer with recent recurrence who presented to on 03/28 for scheduled surgery for resection of recurrent malignancy. Patient underwent ureteroscopy with bilateral ureteral stents,
robotic APR, BIANKA / BSO, repair of vaginal defect and perineal reconstruction / flap on 03/28/25. She received 2 units PRBC and 1g TXA during the surgeries. Patient was successfully extubated post-op. She was on pressors post-op which were able to
be weaned, but have since been restarted at low dose to maintain adequate perfusion.
Medicine service was consulted for management of patient's multiple medical issues.
Assessment/plan:
Anal Cancer s/p Robotic APR, BIANKA/BSO, Repair of Vaginal Defect, Perineal Reconstruction / Flap
Concern for superficial necrosis of the flap
- Continue post-op care per surgical service(s). Pain control.
- Continue with NG tube. NGT clamping trial once with signs of ROBF.
- Pain control. OOB/activity per surgery post op.
- IV Ancef transition to Zosyn as below. Improvement in leukocytosis.
- Status post debridement on 04/03/2025 of flap to muscle. Pressure offloading per plastics surgery recs
- Patient now started on TPN.
Acute Blood Loss Anemia
Shock likely secondary to hemorrhagic and hypovolemia
Coagulopathy with thrombocytopenia
- Received 5 units PRBCs total thus far (and 1 g TXA) and 2units of FFP and 10mg of Vitamin K. Hemoglobin at 9
- Currently on low-dose phenylephrine for BP support - wean as able. Midodrine started
- IV ppi. IVF has been stopped.
- Follow H&H and transfuse additional blood products if needed. If persistent downtrend of hemoglobin may need to consider CT abdomen pelvis
- If persistent downtrend in platelets noted check fibrinogen, D-dimer. Low likelihood of DIC.
Leukocytosis
- Likely multifactorial due to reactive versus UTI versus pneumonia
- Ancef switched to Zosyn. Leukocytosis downtrending.
Vasovagal episode on 04/04/2025
- Likely multifactorial in the setting of shock, atrial fibrillation, hypovolemia, fluid shift
- Blood pressure stabilized to some extent. Remains on pressors.
Persistent Atrial Fibrillation
- now in RVR. IV amiodarone started.
- Lopressor IV at low dose with holding parameters for BP.
- Eliquis on hold for surgery, blood loss, etc.
- Cardiology following
Anasarca likely secondary to iatrogenic fluid administration PRBC, FFP, IV fluids etc
- RUE venous doppler pending
- Patient has gained significant weight since admission
- Currently on 40 mg of IV Lasix. Monitor urinary output. May require additional diuresis however limiting factor due to hypotension
Transaminitis likely secondary to shock
- LFTs are improving.
Hypothermia
- Mild hypothermia post-op. Likely combination of anesthesia, blood loss, etc.
- resolved
Acute hypoxic respiratory insufficiency
- Wean O2 as tolerated.
Chronic HFpEF
- Hypotensive at present as noted above.
- Continue to follow accurate I/Os, daily weights, etc.
-
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
- Now started on IV insulin infusion per critical care glycemic protocol
- A1C was 5.7 on 03/26/25.
CKD III
- Stable. SCr is actually improved from prior baseline (1.3 compared to 1.6).
- Monitor urinary output.
Hypothyroidism
- TFTs normal in February of this year.
- Repeat TFTs given hypothermia- TSH wnl.
- Started on IV levothyroid
Hypocalcemia
Hypomagnesemia
Hypophosphatemia
Hypokalemia
-Replete and monitor
Mild hypernatremia
- Monitor for now. Improved
DVT Prophylaxis: hep sc
CODE STATUS: Full code
Anticipated Discharge: > 48 hours
Subjective/Interval History
-
Date of Service: April 06, 2025
eating ice chips
Remains in atrial fibrillation
More awake today
Objective Data
-
Labs:
Laboratory Results
04/06/25 04/06/25
03:30 08:09
WBC 16.6 H
Hgb 9.0 L
Hct 29.3 L
Plt Count 52 L D
Sodium 145
Potassium 4.0
Chloride 116 H
Carbon Dioxide 25
BUN 41 H
Creatinine 1.6 H
Glucose 317 H
Calcium 7.8 L
Total Bilirubin 1.0
AST 224 H
ALT 143 H
Alkaline Phosphatase 64
Vital Signs:
Vital Signs
Temp Pulse Resp BP Pulse Ox
97.5 F 129 16 92/52 96
04/06/25 07:37 04/06/25 10:00 04/06/25 10:00 04/06/25 10:00 04/06/25 10:00
I&O
04/05/25 04/06/25 04/07/25
06:59 06:59 06:59
Intake Total 4282.8 / 4460.5 2533.8 / 2617.5 368.8 / 368.8
Output Total 1422 / 1472 2400 / 2400 290 / 290
Balance 2860.8 / 2988.5 133.8 / 217.5 78.8 / 78.8
Data Reviewed
-
Total Time Spent with Patient (in minutes): 55
[2025-04-06 11:13] LABS: Glucose - Point of Care 124 mg/dl (70-99)
--- NOTE | 2025-04-06 11:32 | W.PN.CD ---
Addendum entered and electronically signed by Tyrell Harper MD 04/06/25 15:25:
Correction: Furosemide 40 mg IV daily.
CT scan shows progressing bilateral pleural effusions and there is an of weight gain. Continue diuresis. May need to increase the diuretic.
Original Note:
Today's Communication / Plan
-
No Lasix today
Impression / Plan
-
Anal cancer:
- s/p robotic abdominoperineal resection, repair of vaginal defect, robotic total laparoscopic hysterectomy, bilateral salpingo-oophorectomy, vertical rectus abdominis myocutaneous flap reconstruction of the perineum, cystoscopy and bilateral
ureteral stent insertion (03/28/25)
- post-op course complicated by hypotension requiring blood products, fluid, vasopressors (suspected hemorrhagic shock- diagnosis is threat to life)
- S/p hemophagic shock, s/p 5 U PRBC (4 on 03/28/2025 and 1 on 03/31/2025)
Persistent AFib
- Rate ok on Amio => using amio b/c of BP, later move to BB
- Resume Eliquis when appropriate
Chronic HFpEF:
- Seems comfortable
- From her critical illness and support her weight is way up from baseline 86.3 kg. Now at 98 kg
- Had one dose of Lasix 04/04/2025 but weight not down
- Hold on diuresis, tolerated the volume and BP still soft, low O2 needs at this time. Will need fluid mobilization at some point if she does not diurese on her own
Pacemaker followed in our office
Subjective: denies CP or dyspnea
Data:
Echo 03/25/25: LVEF 55-60%. Mod MS, mean 5 mmHg. Mod-severe TR, est PASP 66 mmHg, est RA 8 mmHg. Stable from 02/15/2024
Physical Exam
Vital Signs/Labs
Vital Signs
Temp Pulse Resp BP Pulse Ox
97.7 F 119 16 96/56 96
04/06/25 11:16 04/06/25 11:00 04/06/25 11:00 04/06/25 11:00 04/06/25 11:00
04/05/25 04/06/25 04/07/25
06:59 06:59 06:59
Actual Weight 98.004 kg 98.112 kg
04/06/25 08:09
04/06/25 03:30
PT 21.5 Sec (11.4-14.6) H 04/04/25 14:51
INR 1.85 04/04/25 14:51
APTT 32.1 Sec (23.4-35.0) 04/04/25 14:51
Magnesium 1.9 mg/dl (1.6-2.3) 04/06/25 03:30
Triglycerides 131 mg/dl (10-149) 04/04/25 14:50
LAB Results
04/04/25
14:51
Troponin I 0.021
Physical Exam
Constitutional: No acute distress
Cardiovascular: Rhythm/rate is irregular and S1S2 is normal
Respiratory: Respiratory effort normal and Lungs clear to auscul.
GI: Soft and Distention absent
Neuro/Psych: AO x 3
Data Reviewed
-
Date of Service: April 06, 2025
--- NOTE | 2025-04-06 12:11 | PTCARENOTE ---
No changes in assessment. Insulin gtts off at 1200 as per protocol.
[2025-04-06 12:13] LABS: Glucose - Point of Care 98 mg/dl (70-99)
[2025-04-06 13:10] LABS: Glucose - Point of Care 95 mg/dl (70-99)
--- NOTE | 2025-04-06 13:19 | W.PN.GS2 ---
Addendum entered and electronically signed by Hany Sanford MD 04/06/25 13:31:
Patient seen and examined. Agree with documentation below.
Original Note:
Today's Communication / Plan
-
TPN/NGT
Assessment / Plan
-
74 yo female s/p adjunctive chemo now presenting for operative management of anal cancer
POD #9 RAL APR (CRS), vaginal defect repair with BIANKA/BSO (BLEACH MACHINE OPERATOR) and VRAM flap (Plastics)
POD #3 Excisional Debridement to muscle [id number] of superficial necrotic tissue, adjacent tissue transfer [id number]
Leukocytosis persists, unclear etiology
H/H stable s/p 2 units FFP and 5 units PRBC's total this admit, last transfusion was on 03/31
High PRETTY outputs but remains light serosang
Afebrile, hypotensive and on pressor (norepi), mild tachycardia (on amio gtt)
NGT with bilious outputs, ostomy without stool outputs currently. Await bowel recovery.
Renal function stable, phosphorus replaced today
Hyperglycemia with initiation of TPN
Plan:
Continue NPO with NGT in place to suction and await return of bowel function
Continue TPN, macronutrients increased now that she has better glycemic control with insulin gtt
Vasc US of RUE
IVF as per primary team
Ancef as per plastics
Stoma nurse following for soma care
c/w PRETTY drains, follow outputs
IS while awake
Follow labs
C/W brewer
Analgesics prn, Ofirmev scheduled
PPI for GI ppx
Heparin SQ for VTE ppx
Medical management as per ICU/medicine teams
Subjective Data
-
Date of Service: April 06, 2025
Pt seen and examined at bedside with Dr. Sanford. Sleeping on and off. Reports she is tired. Comfortable. Denies nausea or pain.
Objective Data
-
Intake and Output
04/05/25 04/06/25 04/07/25
06:59 06:59 06:59
Intake Total 4282.8 / 4460.5 2533.8 / 2872.5 815.2 / 815.2
Output Total 1422 / 1472 2400 / 2450 740 / 740
Balance 2860.8 / 2988.5 133.8 / 422.5 75.2 / 75.2
Intake:
IV fluids (Total) 3352.8 / 3493.5 1512.8 / 1559.5 258.2 / 258.2
Amiodarone. 400.8 / 417.5 400.8 / 417.5 100.2 / 100.2
Insulin 32 / 44 74 / 74
Lr 1,000 ml @ 100 mls/hr IV . 2400 / 2500 600 / 600
Q10H CARLOS Rx#:[id number]
Neosyneprhrine 552 / 576 480 / 498 84 / 84
IV piggybacks 500 / 500 50 / 305 305 / 305
TPN/PPN 370 / 407 851 / 888 222 / 222
Amount instilled into GI Tube ( 60 / 60 120 / 120 30 / 30
Total)
[place] Sump 60 / 60 120 / 120 30 / 30
Output:
Drain Output (Total) 732 / 732 900 / 900 290 / 290
Left Lower Abdomen Pierce- 0 / 0 425 / 425 100 / 100
Hoover
Right Lower Abdomen Pierce- 530 / 530 400 / 400 160 / 160
Hoover B
Sacrum Pierce-Hoover C 202 / 202 75 / 75 30 / 30
Gastrointestinal tube output ( 300 / 300 300 / 300
Total)
Os[place] Sump 300 / 300 300 / 300
Urine, Brewer 390 / 440 1200 / 1250 450 / 450
Vital Signs
Temp Pulse Resp BP Pulse Ox
97.7 F 122 17 90/56 98
04/06/25 11:16 04/06/25 13:00 04/06/25 13:00 04/06/25 13:00 04/06/25 13:00
Lab Results
04/06/25 08:09
04/06/25 03:30
Calcium 7.8 mg/dl (8.4-10.2) L 04/06/25 03:30
Phosphorus 2.3 mg/dl (2.5-4.5) L 04/06/25 03:30
Magnesium 1.9 mg/dl (1.6-2.3) 04/06/25 03:30
Total Bilirubin 1.0 mg/dl (0.2-1.3) 04/06/25 03:30
Direct Bilirubin 0.8 mg/dl (0.0-0.4) H 04/06/25 03:30
AST 224 U/L (14-36) H 04/06/25 03:30
ALT 143 U/L (0-35) H 04/06/25 03:30
Alkaline Phosphatase 64 U/L (38-126) 04/06/25 03:30
Total Protein 4.6 g/dl (6.3-8.2) L 04/06/25 03:30
Albumin 2.2 g/dl (3.5-5.0) L 04/06/25 03:30
Physical Exam
-
NAD
ABD soft, expected incisional tenderness, nd
RUE with edema/ecchymosis. Warm to upper arm, nontender
Stoma pink/viable no stool in appliance
PRETTY A&C with SSF with fibrinous sediment, PRETTY B with serous fluid
NGT with bilious outputs
Brewer with horace urine
Patient has a brewer catheter: Yes
Patient has a central line: Yes
[2025-04-06] MEDS: DILAUDID 0.5 MG IV (13:22)
[2025-04-06 14:08] LABS: Glucose - Point of Care 90 mg/dl (70-99)
[2025-04-06 15:13] LABS: Glucose - Point of Care 102 mg/dl (70-99)
[2025-04-06] MEDS: HEPARIN SC (15:25)
--- NOTE | 2025-04-06 15:55 | PTCARENOTE ---
HR increasing throughout shift, currently 120-130's. Dr. Scott and Dr. Harper aware. No new orders.
[2025-04-06 16:12] LABS: Glucose - Point of Care 103 mg/dl (70-99)
[2025-04-06] MEDS: LEVOTHROID 115 MCG IV (17:27)
[2025-04-06 18:13] LABS: Glucose - Point of Care 140 mg/dl (70-99)
--- NOTE | 2025-04-06 20:00 | PTCARENOTE ---
Rec'd pt sleeping, easily arousable, extremely weak, needs a lot of enc to assist w/ turning, on lat rotation bed, MANZANO weakly, oriented, afib, merrill gtt at 80 millicent- to keep map > 65 - see flow sheet for titrations, amio gtt at at 0.5, glycemic protocal
restarted per prot, distal pulses via doppler, + anasarca, skin warm/dry, O2 2 liters nc, lungs decr in bases & fine bibas crackles, enc to use IS- reaches 1000, sat 96, hypo bowel sounds, abd soft/ tender to palpation, r nares [place] to low inter
suctiondraining brown/green liqu, irrigated q4h, R PRETTY w/ serous drainage, LJP w/ ses drainage,r post PRETTY intact, colostomy w/o drainage, brewer draining horace urine
[2025-04-06 20:11] LABS: Glucose - Point of Care 180 mg/dl (70-99)
[2025-04-06] MEDS: Parenteral Nutrition, Central 1330 IV (20:48)
[2025-04-06 21:11] LABS: Glucose - Point of Care 164 mg/dl (70-99)
--- NOTE | 2025-04-06 22:08 | PTCARENOTE ---
refused to wear bipap
[2025-04-06 22:12] LABS: Glucose - Point of Care 191 mg/dl (70-99)
[2025-04-06 23:12] LABS: Glucose - Point of Care 230 mg/dl (70-99)
[2025-04-07] VITALS (48 sets, daily range): BP systolic 76–118; BP diastolic 55–83; BMI 40.4
[2025-04-07 00:01] LABS: Glucose - Point of Care 211 mg/dl (70-99)
[2025-04-07] MEDS: DILAUDID 0.25 MG IV ×3 (00:41→23:35)
--- NOTE | 2025-04-07 00:41 | PTCARENOTE ---
sys reviewed, changes noted, chg bath done, linens changed, dilauidi 0.25mg iv given for pain
[2025-04-07 01:13] LABS: Glucose - Point of Care 208 mg/dl (70-99)
[2025-04-07] MEDS: NEO-SYNEPHRINE 250 IV ×2 (02:05→22:55)
[2025-04-07 02:06] LABS: Glucose - Point of Care 212 mg/dl (70-99)
[2025-04-07 03:06] LABS: Glucose - Point of Care 162 mg/dl (70-99)
[2025-04-07 03:35] LABS: Hematocrit 30.2 % (37.0-47.0); Hemoglobin 9.3 g/dL (12.0-16.0); Mean Corp Hgb Conc. 30.8 g/dL (33.0-37.0); Mean Corpuscular Volume 97.1 fL (81.0-99.0); Nucleated Red Blood Cells % 6.1 %; Platelet Count 47 10^3/uL (130-400); Red Cell Dist. Width 17.1 % (11.5-14.5)
--- NOTE | 2025-04-07 04:05 | PTCARENOTE ---
sys reviewed, changes noted
[2025-04-07 04:06] LABS: Glucose - Point of Care 157 mg/dl (70-99)
[2025-04-07 04:24] LABS: ALT (SGPT) 108 U/L (0-35); AST (SGOT) 255 U/L (14-36); Albumin 2.2 g/dl (3.5-5.0); Alkaline Phosphatase 82 U/L (38-126); Blood Urea Nitrogen 47 mg/dl (7-17); Calcium 7.6 mg/dl (8.4-10.2); Carbon Dioxide 26 mmol/L (22-30); Chloride 117 mmol/L (98-107); Estimated Creatinine Clearance 33 ml/min; Glucose 172 mg/dl (70-99); Magnesium 1.8 mg/dl (1.6-2.3); Potassium 3.3 mmol/L (3.5-5.1); Sodium 147 mmol/L (135-145); Total Protein 4.6 g/dl (6.3-8.2); Triglycerides 115 mg/dl (10-149); eGFR 33.42
[2025-04-07] MEDS: ZOSYN 50 IV ×4 (05:00→23:35)
[2025-04-07 05:10] LABS: Glucose - Point of Care 135 mg/dl (70-99)
[2025-04-07] MEDS: MAGNESIUM SULFATE 50 IV (05:29)
--- NOTE | 2025-04-07 05:31 | PTCARENOTE ---
2 gm mag sulfate hung over 1 hr per order
[2025-04-07 06:02] LABS: Glucose - Point of Care 123 mg/dl (70-99)
[2025-04-07] MEDS: POTASSIUM PHOSPHATE 259.0909 MEQ IV (06:26)
--- NOTE | 2025-04-07 06:27 | PTCARENOTE ---
40 kphos hung over 4 hr per order
[2025-04-07 07:11] LABS: Glucose - Point of Care 125 mg/dl (70-99)
--- NOTE | 2025-04-07 07:20 | W.PN.INTV ---
Today's Communication / Plan
Recommendations
Slow progress on weaning pressor, midodrine increased to 10mg
TPN ongoing, remains on insulin gtt due to parenteral nutrition, await PO access per surgery
Being intermittently diuresed due to hypotension
PT/OT ongoing, very deconditioned
Assessment
-
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
status post robotic abdominoperineal resection, BIANKA/BSO, VRAM flap perineal reconstruction, 03/28. Patient admitted to ICU postoperatively given significant blood loss, hypotension requiring pressors
Shock, hemorrhagic related to blood loss and likely post-op vasoplegia
Coagulopathy, suspect transfusion related
S/p robotic abdominoperineal resection, BIANKA/BSO, repair of vaginal defect, VRAM flap perineal reconstruction, 03/28/25
Concern for superficial necrosis of flap, s/p excisional debridement to muscle 10 x 30 cm with adjacent tissue transfer/ 04/03
OSMANY
Leukocytosis
Thrombocytopenia
Hyperkalemia
Hyperglycemia
Kleb UTI
Conditions present prior to admission
History of CKD stage IIIb
Diabetes
Anal squamous cell cancer, stage III
Diagnosed November 2023
s/p chemotherapy/radiation at [facility]
Recurrence of disease per pelvic MRI January 2025
Follows oncology ([facility])
Atrial fibrillation on Eliquis
Now off amiodarone Per cardiology, remains on beta-joseph (Shadi)
Moderate pulm hypertension, echo March 2025, stable compared to prior echo
With dilated RV, normal function, PA pressure 66
Normal EF
Moderate mitral stenosis
History of stroke 1994 and again 2022 per patient
Suspected sleep apnea
Hypothyroidism
Plan:
Extubated and weaned off sedation
Pain control
Rass goal 0
Shock, hemorrhagic related to blood loss and likely post-op vasoplegia- Still requiring low dose merrill
Wean pressor as tolerated, midodrine PO continued/increase to 10mg
s/p 4 units of PRBC--Serial H&H. Hematocrit stable
Suspect RVR with A fib also contributing to hypotension and difficulty weaning of Levophed.
Eliquis on hold in view of bleeding.
Amiodarone bolus and infusion started 04/02, Cardiology consult, tachycardia better controlled.
Chronic HFpEF - f/u CXR stable - lasix resumed 40 IV (intermittent due to hypotension)
Unresponsive episode 04/04 possible vagal--repeat CT with effusions, possible PNA--small air in belly
Continue telemetry monitoring
Remains on low supplemental o2, wean to off
Chest x-ray without acute findings
Encourage out of bed, I-S
Aspiration precautions
BIPAP added
Currently n.p.o., NG tube in place
S/p robotic abdominoperineal resection, BIANKA/BSO, repair of vaginal defect, VRAM flap perineal reconstruction, 03/28/25
Complicated by blood loss, 1 L per OR records. TXA given intra-operatively
Continues TPN, colorectal following
Diet advancement per team
On ancef for kelb UTI
Given increasing WBC, can broaden abx--now on zosyn
WBC now trending down
Continue for now
Concern for superficial necrosis of flap, 04/03
Patient returned to OR for excisional debridement - followed by plastics
Coagulopathy, suspect transfusion related
INR noted to be elevated, give vitamin K 10 mg IV 03/31
Fresh frozen plasma, 2 units, IV calcium given for hypocalcemia 03/31
If additional blood transfusion needed will give FFP and platelets along with PRBC
Follow CBC
Mild OSMANY - Decreased urine out put, dry mouth, also hypotensive, suspect intra-vascular hypovolemia
s/p > 2 ltr LR and Albumin over last 24 hrs
Initiate LR infusion at 100/h. Labs in AM. Avoid hypotension.
Follow creat, IOs
Replete electrolytes as needed
Insulin protocol started due to hyperglycemia with tpn
accu checks q1
DVT prophylaxis: Subcu Lovenox ordered.
GI prophylaxis: Protonix
Data:
CXR 04/02/25- Low lung volumes with patchy bibasilar opacities, likely atelectasis and/or small effusion. No significant effusions or pneumothorax appreciated.
03/28/25- Nasogastric tube is present with tip near the gastroesophageal junction and distal sidehole in the distal esophagus. Consideration for advancement of this tube. Interstitial edema. Linear atelectasis in the right midlung. Mild to moderate
elevation of the left hemidiaphragm, new since previous radiograph. Probable small bilateral pleural effusions.
CT CAP 02/21/25- Circumferential anal wall thickening consistent with known malignancy versus posttreatment change. Probably stable. No evidence of metastatic disease. However, extremely limited exam without IV contrast. Tiny pericardial effusion.
Stable. Progressed small right and new tiny left pleural effusions. Findings suggesting moderate bilateral lower lobe and mild upper lobe pneumonia. New. Mild mediastinal lymphadenopathy. Probably reactive. Stable. Gallstones. Stable. Mild diffuse
bladder wall thickening. This can be seen with cystitis or bladder outlet obstruction. Improved.
Findings suggesting bilateral lower third spacing. Progressed
Echo 03/25/2025: Normal biventricular function with mildly dilated RV, moderate mitral stenosis, severe TR, PA pressure 66
-----
Critical Care time 31 mins -- The patient is admitted for acute critical illness for the treatment of vital organ failure and/or prevention of further life-threatening conditions. Total care includes time spent in review of history, physical exam,
medications, hemodynamic/ventilator parameters, laboratory data, imaging and discussion with house staff, pharmacy, respiratory therapy, director of land acquisition, and nursing.
Subjective Dataa
Subjective Data
Date of Service:
Date of Service: April 07, 2025
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
Subjective:
no acute events ON, remains on low dose merrill gtt
no new complaints
tpn ongoing w/ insulin gtt
Objective Data
Data Reviewed
Vital Signs / I&O / Oxygen:
Vital Signs
Temp Pulse Resp BP Pulse Ox
97.5 F 98 14 76/66 100
04/07/25 04:00 04/07/25 06:30 04/07/25 06:30 04/07/25 06:30 04/07/25 06:30
Intake and Output
04/06/25 04/07/25 04/08/25
06:59 06:59 06:59
Intake Total 2533.8 / 2872.5 2684.3 / 2684.3
Output Total 2400 / 2450 3377 / 3377
Balance 133.8 / 422.5 -692.7 / -692.7
SaO2 100
Nasal Cannula flow liters per 2
minute
Physical Exam
General: Comfortable, Poor Appetite and Other (NAD)
HEENT: Normocephalic, Anicteric and Moist Mucous Membranes
Cardiovascular: S1-S2, Regular Rhythm, Murmur (n) and Rub (n)
Respiratory: Clear, Wheeze (n), Crackles (n), Rhonchi (n) and Non-Labored Respirations
GI: Soft, Non Distended, Non Tender, NG Tube (Ostomy, PRETTY drains) and Other (abdominal incisions are noted)
Neurology: Awake, Alert, Oriented and No Motor Deficits (Generally weak)
Skin: Good Color (Mild pallor), Jaundice (n) and Rash (n)
Labs/Micro/Reports
Lab Data
04/07/25 03:10
04/07/25 03:10
[2025-04-07] MEDS: NOVOLOG FLEXPEN SC ×3 (07:46→15:52)
[2025-04-07] MEDS: CHLORASEPTIC/SORE THROAT SPRAY 1 SPRAY PO (08:03)
[2025-04-07] MEDS: DESENEX/MITRAZOL/ZEASORB 1 APPLIC TOPICAL ×2 (08:19→20:04)
[2025-04-07] MEDS: MYCOSTATIN CREAM 1 APPLIC TOPICAL (08:20)
[2025-04-07] MEDS: NSS (PRESERVATIVE FREE) 10 ML IV (08:21)
[2025-04-07] MEDS: CORDARONE 518 MG IV (08:21)
[2025-04-07] MEDS: PROTONIX IV 40 MG IV (08:21)
--- NOTE | 2025-04-07 08:21 | W.PN.CD ---
Today's Communication / Plan
-
Patient remains on IV amiodarone for rate control of A-fib. Blood pressure limits other medications.
Patient remains hypotensive. May need additional blood pressure support with pressors. Patient already receiving midodrine.
Although weights are up and patient has bilateral lower extremity edema. Blood pressures are limiting diuresis
Impression / Plan
-
Anal cancer:
- s/p robotic abdominoperineal resection, repair of vaginal defect, robotic total laparoscopic hysterectomy, bilateral salpingo-oophorectomy, vertical rectus abdominis myocutaneous flap reconstruction of the perineum, cystoscopy and bilateral
ureteral stent insertion (03/28/25)
- post-op course complicated by hypotension requiring blood products, fluid, vasopressors (suspected hemorrhagic shock- diagnosis is threat to life)
- S/p hemophagic shock, s/p 5 U PRBC (4 on 03/28/2025 and 1 on 03/31/2025)
Persistent AFib
- Rate ok on Amio => using amio b/c of BP, later move to BB
- Resume Eliquis when appropriate
Chronic HFpEF:
- Seems comfortable
- From her critical illness and support her weight is way up from baseline 86.3 kg. Now at 98 kg. Patient with upper and lower extremity edema but still with low blood pressures which are limiting diuretic use
- Had one dose of Lasix 04/04/2025
- Hold on diuresis, tolerated the volume and BP still soft, low O2 needs at this time. Will need fluid mobilization at some point if she does not diurese on her own
Pacemaker followed in our office
Subjective: denies CP or dyspnea
Data:
Echo 03/25/25: LVEF 55-60%. Mod MS, mean 5 mmHg. Mod-severe TR, est PASP 66 mmHg, est RA 8 mmHg. Stable from 02/15/2024
Physical Exam
Vital Signs/Labs
Vital Signs
Temp Pulse Resp BP Pulse Ox
97.5 F 109 13 97/83 100
04/07/25 04:00 04/07/25 07:45 04/07/25 07:45 04/07/25 07:45 04/07/25 07:45
04/06/25 04/07/25 04/08/25
06:59 06:59 06:59
Actual Weight 98.112 kg 96.933 kg
04/07/25 03:10
04/07/25 03:10
PT 21.5 Sec (11.4-14.6) H 04/04/25 14:51
INR 1.85 04/04/25 14:51
APTT 32.1 Sec (23.4-35.0) 04/04/25 14:51
Magnesium 1.8 mg/dl (1.6-2.3) 04/07/25 03:10
Triglycerides 115 mg/dl (10-149) 04/07/25 03:10
LAB Results
04/04/25
14:51
Troponin I 0.021
Physical Exam
Constitutional: No acute distress and Other (NG tube)
Cardiovascular: Rhythm/rate is irregular
Respiratory: Wheeze Absent and Rhonchi Absent
GI: Other (Patient reports of some left lower quadrant abdominal discomfort)
Neuro/Psych: Alert
Data Reviewed
-
Date of Service: April 07, 2025
Medical Decision Making: Reviewed Test Results
Echo: Report Reviewed by me
Medical Tests (PFT, Pathology etc): Report Reviewed by me
Labs: Labs Reviewed by me
[2025-04-07 09:14] LABS: Glucose - Point of Care 109 mg/dl (70-99)
[2025-04-07] MEDS: OFIRMEV 100 IV ×3 (09:46→22:09)
[2025-04-07 10:10] LABS: Glucose - Point of Care 102 mg/dl (70-99)
--- NOTE | 2025-04-07 10:25 | PTCARENOTE ---
Assisted Dr Senior to assess rectal wound. Drainage appears normal. Plan to continue tpn, npo, ngt/drains
[2025-04-07 11:10] LABS: Glucose - Point of Care 126 mg/dl (70-99)
[2025-04-07 12:07] LABS: Glucose - Point of Care 133 mg/dl (70-99)
--- NOTE | 2025-04-07 12:19 | PTCARENOTE ---
Systems reviewed. No new changes.
[2025-04-07 12:28] LABS: Glucose - Point of Care 152 mg/dl (70-99)
--- NOTE | 2025-04-07 12:31 | W.PN.CRS1 ---
Addendum entered and electronically signed by Marco Senior MD 04/07/25 12:44:
� For persistent leukocytosis, would hold off on cross-sectional imaging; overall trend shows improving WBC despite bump today; patient remains afebrile and incisions/drains are without evidence of infection
�If WBC continues to rise tomorrow, may consider CT scan
Original Note:
Today's Communication / Plan
-
As below
Assessment/Plan
-
74 yo female with PMH of A-fib, HFpEF, RCC, HTN, HLD, DM, hypothyroidism, CVA, LIZETT and anal cancer s/p adjunctive chemo complicated by recurrence, presented for elective surgery
POD #9 RAL APR (CRS), vaginal defect repair with BIANKA/BSO (CLERICAL COORDINATOR) and VRAM flap (Plastics)
POD #3 Excisional Debridement of perineal flap
Afebrile, HR 90s�100s, merrill has weaned down to 40; NGT�300 mL bilious
WBC 19.0 from 16.6, Hb 9.3 from 9.0, platelets 47
-H/H stable s/p 2 units FFP and 5 units PRBC's total this admit, last transfusion was on 03/31
�No return of bowel function; continue NPO with NGT in place to suction and await return of bowel function
�Continue TPN
�Continue Zosyn s/p flap necrosis
�Maintain MAP greater than 65, wean merrill as tolerated
�Recommend workup for thrombocytopenia; will defer to primary; hold DVT PPx
�Strict intake/output
�c/w PRETTY drains, follow outputs
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
�Encourage IS while awake
�Pain control with Tylenol and Dilaudid as needed
�Appreciate hospitalist and showroom salesperson
Subjective Data
Procedure
03/28/2025- RAL APR (CRS), vaginal defect repair with BIANKA/BSO (CLERICAL COORDINATOR) and VRAM flap (Plastics)
Subjective Data
Date of Service: April 07, 2025
No issues overnight. Still having some mild nausea, but pain controlled. No ostomy function, Rogers in place.
Objective Data
-
Vital Signs
Temp Pulse Resp BP Pulse Ox
97.5 F 101 19 96/72 100
04/07/25 11:18 04/07/25 12:00 04/07/25 12:00 04/07/25 12:00 04/07/25 12:00
Intake & Output
04/06/25 04/07/25 04/08/25
06:59 06:59 06:59
Intake Total 2533.8 / 2872.5 2684.3 / 2840.0 881.1 / 881.1
Output Total 2400 / 2450 3377 / 3377 671 / 671
Balance 133.8 / 422.5 -692.7 / -537.0 210.1 / 210.1
Intake:
IV fluids (Total) 1512.8 / 1559.5 999.3 / 1100.0 466.1 / 466.1
Amiodarone. 400.8 / 417.5 400.8 / 417.5 100.2 / 100.2
Insulin 32 / 44 119.5 / 123.5 15.9 / 15.9
Kphos 0 / 65 260 / 260
Lr 1,000 ml @ 100 mls/hr IV . 600 / 600
Q10H CARLOS Rx#:[id number]
Neosyneprhrine 480 / 498 429 / 444 90 / 90
mag sulfate 50 / 50
IV piggybacks 50 / 305 455 / 455
TPN/PPN 851 / 888 1050 / 1105 330 / 330
Amount instilled into GI Tube ( 120 / 120 180 / 180 85 / 85
Total)
[place]right Sump 120 / 120 180 / 180 85 / 85
Output:
Drain Output (Total) 900 / 900 1177 / 1177 271 / 271
Left Lower Abdomen Pierce- 425 / 425 555 / 555 140 / 140
Hoover
Right Lower Abdomen Pierce- 400 / 400 570 / 570 128 / 128
Hoover B
Sacrum Pierce-Hoover C 75 / 75 52 / 52 3 / 3
Gastrointestinal tube output ( 300 / 300 300 / 300
Total)
Wright Sump 300 / 300 300 / 300
Urine, Rogers 1200 / 1250 1900 / 1900 400 / 400
Lab Results
04/07/25 03:10
04/07/25 03:10
Physical Exam
-
General: No Acute Distress and AOx3
HEENT: Grossly Normal
Abdomen: Soft, Non Distended, Tender (Appropriately tender near midline incision; no erythema or fluctuance around incision) and Other (Ostomy pink with caryn in place, bowel sweat in bag; left PRETTY-535 mL serous, right PRETTY 490 mL serous, sacral PRETTY-52 mL
serosanguineous)
Rectal: Other (Primary closure of perineal wound with serous drainage; edges well-approximated with patchy areas of hess near posterior aspect, no redness, fluctuance or purulent drainage; no obvious necrosis)
Skin: Warm and Dry
Wound: No Signs of Infection and No Skin Erythema
[2025-04-07 13:32] LABS: Glucose - Point of Care 160 mg/dl (70-99)
[2025-04-07 14:40] LABS: Glucose - Point of Care 184 mg/dl (70-99)
--- NOTE | 2025-04-07 15:01 | PTCARENOTE ---
Continue to wean levo as tolerated. Pt refused to eat meals today. Discussed dht, pt refused. Systems reviewed. Bibasilar crackles noted. Pt has been weaned to room air.
--- NOTE | 2025-04-07 15:55 | W.PN.HOSP.TC ---
Today's Communication/Plan
-
Continue management in ICU.
Monitor platelet count.
Hold heparin.
HIT antibodies pending.
Assessment / Plan
Assessment / Plan
Impression:
Patient is a 74y F with PMH significant for A-Fib, CHF and anal cancer with recent recurrence who presented to on 03/28 for scheduled surgery for resection of recurrent malignancy. Patient underwent ureteroscopy with bilateral ureteral stents,
robotic APR, BIANKA / BSO, repair of vaginal defect and perineal reconstruction / flap on 03/28/25. She received 2 units PRBC and 1g TXA during the surgeries. Patient was successfully extubated post-op. She was on pressors post-op which were able to
be weaned, but have since been restarted at low dose to maintain adequate perfusion.
Medicine service was consulted for management of patient's multiple medical issues.
Patient Status post debridement on 04/03/2025 of flap to muscle. Pressure offloading per plastics surgery recs.
Worsening thrombocytopenia.
Assessment/plan:
Anal Cancer s/p Robotic APR, BIANKA/BSO, Repair of Vaginal Defect, Perineal Reconstruction / Flap
Concern for superficial necrosis of the flap
- Continue post-op care per surgical service(s). Pain control.
- Continue with NG tube. NGT clamping trial once with signs of ROBF.
- Pain control. OOB/activity per surgery post op.
- IV Ancef transition to Zosyn as below. Improvement in leukocytosis.
- Status post debridement on 04/03/2025 of flap to muscle. Pressure offloading per plastics surgery recs
- Patient now started on TPN.
Acute Blood Loss Anemia
Shock likely secondary to hemorrhagic and hypovolemia
Coagulopathy with thrombocytopenia
- Received 5 units PRBCs total thus far (and 1 g TXA) and 2units of FFP and 10mg of Vitamin K. Hemoglobin at 9
- Currently on low-dose phenylephrine for BP support - wean as able. Midodrine started
- IV ppi. IVF has been stopped.
- Follow H&H and transfuse additional blood products if needed. If persistent downtrend of hemoglobin may need to consider CT abdomen pelvis
- If persistent downtrend in platelets noted check fibrinogen, D-dimer. Low likelihood of DIC.
04/07
HIT at antibodies pending.
Leukocytosis
- Likely multifactorial due to reactive versus UTI versus pneumonia
- Ancef switched to Zosyn. Leukocytosis downtrending. up today but overall trending down.
Vasovagal episode on 04/04/2025
- Likely multifactorial in the setting of shock, atrial fibrillation, hypovolemia, fluid shift
- Blood pressure stabilized to some extent. Remains on pressors.
Persistent Atrial Fibrillation
- now in RVR. IV amiodarone started.
- Lopressor IV at low dose with holding parameters for BP.
- Eliquis on hold for surgery, blood loss, etc.
- Cardiology following
Anasarca likely secondary to iatrogenic fluid administration PRBC, FFP, IV fluids etc
- RUE venous doppler pending
- Patient has gained significant weight since admission
- Currently on 40 mg of IV Lasix. Monitor urinary output. May require additional diuresis however limiting factor due to hypotension
Transaminitis likely secondary to shock
- LFTs are improving.
Hypothermia
- Mild hypothermia post-op. Likely combination of anesthesia, blood loss, etc.
- resolved
Acute hypoxic respiratory insufficiency
- Wean O2 as tolerated.
Chronic HFpEF
- Hypotensive at present as noted above.
- Continue to follow accurate I/Os, daily weights, etc.
-
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
- Now started on IV insulin infusion per critical care glycemic protocol
- A1C was 5.7 on 03/26/25.
CKD III
- Stable. SCr is actually improved from prior baseline (1.3 compared to 1.6).
- Monitor urinary output.
Hypothyroidism
- TFTs normal in February of this year.
- Repeat TFTs given hypothermia- TSH wnl.
- Started on IV levothyroid
Hypocalcemia
Hypomagnesemia
Hypophosphatemia
Hypokalemia
-Replete and monitor
Mild hypernatremia
- Monitor for now. Improved
CODE STATUS: Full code
DVT prophylaxis: Heparin on hold for thrombocytopenia
Diet: TPN.
Total time spent on today's encounter was 74 minutes which included time spent in counseling the patient/family regarding diagnosis and treatment plan as listed above, goals of care, and symptom management. Case was discussed with nursing staff,
specialists, and care coordinators/case management. All labs and imaging personally reviewed by me. Remainder the time spent in detailed review of previous records, lab data, imaging, and other medical provider documentation.
Anticipated Discharge: > 48 hours
Subjective/Interval History
-
Date of Service: April 07, 2025
Patient still in the ICU, worsening thrombocytopenia, patient
Patient denies chest pain.
Objective Data
-
Labs:
Laboratory Results
04/07/25
03:10
Sodium 147 H
Potassium 3.3 L
Chloride 117 H
Carbon Dioxide 26
BUN 47 H
Creatinine 1.6 H
Glucose 172 H
Calcium 7.6 L
Total Bilirubin 1.2
AST 255 H
ALT 108 H
Alkaline Phosphatase 82
Vital Signs:
Vital Signs
Temp Pulse Resp BP Pulse Ox
97.7 F 112 20 108/71 100
04/07/25 15:38 04/07/25 15:30 04/07/25 15:30 04/07/25 15:30 04/07/25 15:30
I&O
04/06/25 04/07/25 04/08/25
06:59 06:59 06:59
Intake Total 2533.8 / 2872.5 2684.3 / 2840.0 1051.9 / 1051.9
Output Total 2400 / 2450 3377 / 3377 771 / 771
Balance 133.8 / 422.5 -692.7 / -537.0 280.9 / 280.9
Physical Exam
-
General: Well Developed, Well Nourished and Obese
HEENT: Normocephalic, Atraumatic and Other (NG tube)
Respiratory: Rales and Non Labored Respirations
Cardiac: S1/S2 and Irregular Rhythm
Breast: Deferred by me
GI: Tender and Other (Drain at surgical site)
Genito-urinary: No Costovertebral Tender
Musculoskeletal: No Clubbing and No Cyanosis
Skin: Warm
Neuro: Awake, Alert, Oriented and AO x 3
Psych: Calm
[2025-04-07 16:01] LABS: Glucose - Point of Care 169 mg/dl (70-99)
[2025-04-07] MEDS: NOVOLIN R INSULIN INFUSION 100 IV (17:48)
[2025-04-07] MEDS: LEVOTHROID 115 MCG IV (17:50)
[2025-04-07 17:57] LABS: Glucose - Point of Care 190 mg/dl (70-99)
[2025-04-07 19:02] LABS: Glucose - Point of Care 189 mg/dl (70-99)
--- NOTE | 2025-04-07 20:00 | PTCARENOTE ---
rec'd pt asleep, easily arousable, enc to assist w/ turning, do IS, peña weakly, afib, amiodarone gtt at 0.5, merrill gtt at 20 millicent- to titrate keeping map > 65, see flow sheet for titrations, distal pulses via doppler, + anasarca, O2 1 liter nc, lungs
decr in bases, reaches 500 on IS, sat 100, hypo bowel sounds, colostomy w/ gas, scant seroue drainage, 3 PRETTY, R narjose torom to low inter suction draining brown/ green liquid- irrigated q4h w/ 30 nss, no
.n/v, brewer draining yellow urine; on glycemic prot - see flow sheet for titrations
[2025-04-07] MEDS: MYCOSTATIN CREAM TOPICAL (20:04)
[2025-04-07 20:12] LABS: Glucose - Point of Care 179 mg/dl (70-99)
[2025-04-07] MEDS: Parenteral Nutrition, Central 1330 IV (20:40)
[2025-04-07 22:07] LABS: Glucose - Point of Care 206 mg/dl (70-99)
--- NOTE | 2025-04-07 22:09 | PTCARENOTE ---
ofirmev 1 gm iv givwen form discomfort, refused bipap
[2025-04-07 23:04] LABS: Glucose - Point of Care 176 mg/dl (70-99)
--- NOTE | 2025-04-07 23:36 | PTCARENOTE ---
dilaudid 0.25mg iv given for pain
[2025-04-08] VITALS (55 sets, daily range): BP systolic 78–117; BP diastolic 32–87; PULSE 106–142; O2SAT 100; BMI 40.5
--- NOTE | 2025-04-08 00:25 | PTCARENOTE ---
sys reviewed, changes noted, CHG bath done, linens changed
[2025-04-08 01:10] LABS: Glucose - Point of Care 226 mg/dl (70-99)
[2025-04-08 02:18] LABS: Glucose - Point of Care 191 mg/dl (70-99)
[2025-04-08 03:15] LABS: Glucose - Point of Care 217 mg/dl (70-99)
[2025-04-08 03:24] LABS: Hematocrit 27.7 % (37.0-47.0); Hemoglobin 8.6 g/dL (12.0-16.0); Mean Corp Hgb Conc. 31.0 g/dL (33.0-37.0); Mean Corpuscular Volume 97.2 fL (81.0-99.0); Platelet Count 38 10^3/uL (130-400); Red Cell Dist. Width 17.4 % (11.5-14.5)
[2025-04-08 03:51] LABS: ALT (SGPT) 78 U/L (0-35); AST (SGOT) 103 U/L (14-36); Albumin 1.9 g/dl (3.5-5.0); Alkaline Phosphatase 75 U/L (38-126); Blood Urea Nitrogen 51 mg/dl (7-17); Calcium 7.6 mg/dl (8.4-10.2); Carbon Dioxide 25 mmol/L (22-30); Chloride 118 mmol/L (98-107); Estimated Creatinine Clearance 37 ml/min; Glucose 194 mg/dl (70-99); Potassium 3.6 mmol/L (3.5-5.1); Sodium 146 mmol/L (135-145); Total Protein 4.4 g/dl (6.3-8.2); eGFR 39.23
[2025-04-08 04:02] LABS: Glucose - Point of Care 181 mg/dl (70-99)
--- NOTE | 2025-04-08 04:05 | PTCARENOTE ---
sys reviewed, changes noted, merrill off at 0200
[2025-04-08] MEDS: ZOSYN 50 IV ×4 (05:04→23:19)
[2025-04-08 05:13] LABS: Glucose - Point of Care 156 mg/dl (70-99)
--- NOTE | 2025-04-08 06:02 | PTCARENOTE ---
merrill at 20 millicent
[2025-04-08 06:09] LABS: Glucose - Point of Care 140 mg/dl (70-99)
[2025-04-08] MEDS: KCL 270 MEQ IV (06:30)
--- NOTE | 2025-04-08 06:31 | PTCARENOTE ---
40 kcl/250 hung over 4hr per order
[2025-04-08 07:06] LABS: Glucose - Point of Care 127 mg/dl (70-99)
--- NOTE | 2025-04-08 07:32 | W.PN.INTV ---
Today's Communication / Plan
Recommendations
Antibiotics
Wean [id number]
TPN per surgery
Follow hemoglobin and platelet count
Transfuse as needed
Assessment
-
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
status post robotic abdominoperineal resection, BIANKA/BSO, VRAM flap perineal reconstruction, 03/28. Patient admitted to ICU postoperatively given significant blood loss, hypotension requiring pressors
Shock, hemorrhagic related to blood loss and likely post-op vasoplegia
Coagulopathy, suspect transfusion related
S/p robotic abdominoperineal resection, BIANKA/BSO, repair of vaginal defect, VRAM flap perineal reconstruction, 03/28/25
Concern for superficial necrosis of flap, s/p excisional debridement to muscle 10 x 30 cm with adjacent tissue transfer/ 04/03
OSMANY
Leukocytosis
Thrombocytopenia
Hyperkalemia
Hyperglycemia
Kleb UTI
Conditions present prior to admission:
History of CKD stage IIIb
Diabetes
Anal squamous cell cancer, stage III
Diagnosed November 2023
s/p chemotherapy/radiation at [place]
Recurrence of disease per pelvic MRI January 2025
Follows oncology ([facility])
Atrial fibrillation on Eliquis
Now off amiodarone Per cardiology, remains on beta-joseph (Shadi)
Moderate pulm hypertension, echo March 2025, stable compared to prior echo
With dilated RV, normal function, PA pressure 66
Normal EF
Moderate mitral stenosis
History of stroke 1994 and again 2022 per patient
Suspected sleep apnea
Hypothyroidism
Plan:
Respiratory status relatively stable
Continue supplemental oxygen
Refusing BiPAP-likely has obstructive sleep apnea
Aspiration precautions
Nebulizers if needed-currently not bronchospastic
Pressors as needed
Attempt to wean pressors
Continue midodrine
Monitor lactate if needed
Follow hemoglobin and platelet count
Transfuse as needed
HIT pending-low suspicion-low 4 T-score
Cardiology following-correspondence reviewed-Dr. Scott reviewed with Dr. Alvarado on 04/08/2025
Amiodarone continues
Updated echocardiogram pending
Atrial fibrillation rate control
Chronic heart failure preserved EF
Currently n.p.o., NG tube in place
S/p robotic abdominoperineal resection, BIANKA/BSO, repair of vaginal defect, VRAM flap perineal reconstruction, 03/28/25
Complicated by blood loss, 1 L per OR records. TXA given intra-operatively
Colorectal surgery following-correspondence reviewed-Dr. Scott reviewed with colorectal surgery
TPN per surgery
Diet advancement per team
Cultures reviewed
Empiric antibiotics
Monitor leukocytosis and temperature curve
Concern for superficial necrosis of flap, 04/03
Patient returned to OR for excisional debridement - followed by plastics
Mild OSMANY - Decreased urine out put, dry mouth, also hypotensive, suspect intra-vascular hypovolemia
s/p > 2 ltr LR and Albumin over last 24 hrs
Initiate LR infusion at 100/h. Labs in AM. Avoid hypotension.
Follow creat, IOs
Replete electrolytes as needed
Monitor blood sugars closely
Insulin supplementation as needed
DVT prophylaxis--heparin held due to thrombocytopenia
GI prophylaxis-on Protonix
Nutrition per surgery
Bedside range of motion/eventual physical and Occupational Therapy
Eventual outpatient pulmonary/sleep disorders follow-up
Critical care statement: A total of 50 minutes of critical care time was provided for this patient today. This includes management of unstable vital signs, evaluation of the patient at bedside, reviewing the patient�s pertinent medical records
including radiographs, pressor management, microbiology, laboratory evaluations, and��discussion with primary team, consultants, pharmacy, nutrition, physical therapy, case management, charge nurse, critical care nursing, and respiratory therapy.
Data:
CXR 04/02/25- Low lung volumes with patchy bibasilar opacities, likely atelectasis and/or small effusion. No significant effusions or pneumothorax appreciated.
03/28/25- Nasogastric tube is present with tip near the gastroesophageal junction and distal sidehole in the distal esophagus. Consideration for advancement of this tube. Interstitial edema. Linear atelectasis in the right midlung. Mild to moderate
elevation of the left hemidiaphragm, new since previous radiograph. Probable small bilateral pleural effusions.
CT CAP 02/21/25- Circumferential anal wall thickening consistent with known malignancy versus posttreatment change. Probably stable. No evidence of metastatic disease. However, extremely limited exam without IV contrast. Tiny pericardial effusion.
Stable. Progressed small right and new tiny left pleural effusions. Findings suggesting moderate bilateral lower lobe and mild upper lobe pneumonia. New. Mild mediastinal lymphadenopathy. Probably reactive. Stable. Gallstones. Stable. Mild diffuse
bladder wall thickening. This can be seen with cystitis or bladder outlet obstruction. Improved.
Findings suggesting bilateral lower third spacing. Progressed
Echo 03/25/2025: Normal biventricular function with mildly dilated RV, moderate mitral stenosis, severe TR, PA pressure 66
-----
Subjective Dataa
Subjective Data
Date of Service:
Date of Service: April 08, 2025
Chief Complaint: [employer] Follow Up and Pulmonary Follow Up
Subjective:
Denies any shortness of breath at rest, chest pain, some abdominal gas and some buttocks pain
Review of Systems
General: Other (Per HPI)
Objective Data
Data Reviewed
Vital Signs / I&O / Oxygen:
Vital Signs
Temp Pulse Resp BP Pulse Ox
97.5 F 104 14 85/71 100
04/08/25 03:56 04/08/25 06:30 04/08/25 06:30 04/08/25 06:30 04/08/25 06:30
Intake and Output
04/07/25 04/08/25 04/09/25
06:59 06:59 06:59
Intake Total 2684.3 / 2840.0 2775.1 / 2924.3 149.2 / 149.2
Output Total 3377 / 3377 2648 / 2648
Balance -692.7 / -537.0 127.1 / 276.3 149.2 / 149.2
SaO2 100
Nasal Cannula flow liters per 1
minute
Physical Exam
General: Respiratory Distress (n), Comfortable, Poor Appetite and Other (NAD)
HEENT: Normocephalic, Anicteric and Moist Mucous Membranes
Cardiovascular: S1-S2, Regular Rhythm, Murmur (n) and Rub (n)
Respiratory: Wheeze (n), Crackles (n), Rhonchi (n), Non-Labored Respirations, Accessory Resp Muscle Use (n) and Stridor
GI: Soft, Non Distended, Non Tender, NG Tube (Ostomy, PRETTY drains) and Other (abdominal incisions are noted)
Neurology: Awake, Alert, Oriented and No Motor Deficits (Generally weak)
Skin: Warm, Good Color (Mild pallor), Cyanosis (n), Jaundice (n) and Rash (n)
Labs/Micro/Reports
Lab Data
04/08/25 03:03
04/08/25 03:03
[2025-04-08 08:17] LABS: Glucose - Point of Care 118 mg/dl (70-99)
[2025-04-08] MEDS: NOVOLOG FLEXPEN SC ×3 (08:40→17:15)
[2025-04-08] MEDS: DESENEX/MITRAZOL/ZEASORB 1 APPLIC TOPICAL ×2 (08:40→21:02)
[2025-04-08] MEDS: MYCOSTATIN CREAM 1 APPLIC TOPICAL (08:40)
[2025-04-08] MEDS: PROTONIX IV 40 MG IV (08:41)
[2025-04-08] MEDS: OFIRMEV 100 IV ×2 (08:41→14:54)
[2025-04-08] MEDS: NSS (PRESERVATIVE FREE) 10 ML IV (08:41)
--- NOTE | 2025-04-08 09:29 | W.PN.CD ---
Today's Communication / Plan
-
Patient continues to have a lot of low blood pressures she has had asymptomatic systolic blood pressures in the 80s. Maps have been for the most part greater than 65. Blood pressure currently 95/78
Will repeat echo. Preoperative echo with normal left ventricular function. Follow-up study ordered
Will continue with IV amiodarone
Anticoagulation when okay by surgical team, critical care and hospitalist
Impression / Plan
-
Anal cancer:
- s/p robotic abdominoperineal resection, repair of vaginal defect, robotic total laparoscopic hysterectomy, bilateral salpingo-oophorectomy, vertical rectus abdominis myocutaneous flap reconstruction of the perineum, cystoscopy and bilateral
ureteral stent insertion (03/28/25)
- post-op course complicated by hypotension requiring blood products, fluid, vasopressors (suspected hemorrhagic shock- diagnosis is threat to life)
- S/p hemophagic shock, s/p 5 U PRBC (4 on 03/28/2025 and 1 on 03/31/2025)
Persistent AFib
- Mildly elevated rates. Appropriate for current clinical circumstance. Using amio b/c of BP
- Resume Eliquis when appropriate
Chronic HFpEF:
- Seems comfortable
- From her critical illness and support her weight is way up from baseline 86.3 kg. Now at 98 kg. Patient with upper and lower extremity edema but still with low blood pressures which are limiting diuretic use
- Had one dose of Lasix 04/04/2025
- Hold on diuresis, tolerated the volume and BP still soft, low O2 needs at this time. Will need fluid mobilization at some point if she does not diurese on her own
.
Hypotension. Blood pressures remain low. She has had asymptomatic systolic blood pressures in the 80s current blood pressure 95/78. Continue to monitor closely. Some challenges in obtaining blood pressure is not using right arm. Only using left
wrist at this point. Continue to monitor pressures closely. Will repeat echo. Follow-up study. Patient had a preop echo with normal left ventricular function
Pacemaker followed in our office
Subjective: denies CP or dyspnea
Data:
Echo 03/25/25: LVEF 55-60%. Mod MS, mean 5 mmHg. Mod-severe TR, est PASP 66 mmHg, est RA 8 mmHg. Stable from 02/15/2024
Physical Exam
Vital Signs/Labs
Vital Signs
Temp Pulse Resp BP Pulse Ox
97.2 F 104 14 85/71 100
04/08/25 07:54 04/08/25 06:30 04/08/25 06:30 04/08/25 06:30 04/08/25 06:30
04/07/25 04/08/25 04/09/25
06:59 06:59 06:59
Actual Weight 96.933 kg 97.296 kg
04/08/25 03:03
04/08/25 03:03
PT 21.5 Sec (11.4-14.6) H 04/04/25 14:51
INR 1.85 04/04/25 14:51
APTT 32.1 Sec (23.4-35.0) 04/04/25 14:51
Magnesium 1.8 mg/dl (1.6-2.3) 04/07/25 03:10
Triglycerides 115 mg/dl (10-149) 04/07/25 03:10
Physical Exam
Constitutional: No acute distress
Cardiovascular: Pedal edema is absent
Respiratory: Respiratory effort normal
GI: Non tender
Neuro/Psych: Alert and Oriented
Data Reviewed
-
Date of Service: April 08, 2025
Medical Decision Making: Reviewed Test Results
EKG: Other (Telemetry A-fib rates in the low 100s)
Medical Tests (PFT, Pathology etc): Report Reviewed by me
Labs: Labs Reviewed by me
--- NOTE | 2025-04-08 09:56 | PN.DE.MGMTRT ---
Insulin Management
- -
04/08/2025 Diabetes Management Consult
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 PMH anal sq. cell CA, pacemaker, diabetes, hypothyroid, ovesity, a fib, HTN, ASCVD/CVA, HCL. Prior to admission was taking Tresiba 8 units @ HS with
glyburide 2.5 mg daily. A1C 5.7%, cr 1.4, eGFR 39.23.
Patient is awake and alert able to discuss diabetes care, states she has had diabetes 20 years, has glucose monitor. States she only took the glipizide if her glucose was > 135.
Patient currently receiving TPN, and is on the critical care glycemic protocol. Glucose range 127 to 194, receiving 2 to 4.5 units of insulin.
Will continue insulin infusion while on TPN.
Discussed with nurse.
Will follow.
Diabetes History
- -
Type of Diabetes: 2
Pre-Admission Diabetes Regimen
04/08/25
03:03
Creatinine 1.4 H
Lab Results
Hemoglobin A1c 5.7 % (4.0-5.6) H 03/26/25 10:51
Insulin Pump Settings
IP Diabetes Regimen
04/07/25 04/07/25 04/07/25
09:59 11:00 11:56
Glucose
POC Glucose 102 H 126 H 133 H
04/07/25 04/07/25 04/07/25
12:17 13:21 14:29
Glucose
POC Glucose 152 H 160 H 184 H
04/07/25 04/07/25 04/07/25
15:50 17:46 18:51
Glucose
POC Glucose 169 H 190 H 189 H
04/07/25 04/07/25 04/07/25
20:01 21:56 22:53
Glucose
POC Glucose 179 H 206 H 176 H
04/08/25 04/08/25 04/08/25
00:59 02:06 03:03
Glucose 194 H
POC Glucose 226 H 191 H
04/08/25 04/08/25 04/08/25
03:04 03:50 05:02
Glucose
POC Glucose 217 H 181 H 156 H
04/08/25 04/08/25 04/08/25
05:58 06:55 08:05
Glucose
POC Glucose 140 H 127 H 118 H
Patient Education
[2025-04-08 10:12] LABS: Glucose - Point of Care 95 mg/dl (70-99)
--- NOTE | 2025-04-08 10:25 | W.PN.INTV ---
Documented by User: Anne Ventura MD, Resident 04/08/25 11:05
Today's Communication / Plan
Recommendations
Plan reviewed with attending.
Assessment
-
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
status post robotic abdominoperineal resection, BIANKA/BSO, VRAM flap perineal reconstruction, 03/28. Patient admitted to ICU postoperatively given significant blood loss, hypotension requiring pressors
Shock, hemorrhagic related to blood loss and likely post-op vasoplegia
Coagulopathy, suspect transfusion related. RUE negative for DVT
S/p robotic abdominoperineal resection, BIANKA/BSO, repair of vaginal defect, VRAM flap perineal reconstruction, 03/28/25
Concern for superficial necrosis of flap, s/p excisional debridement to muscle 10 x 30 cm with adjacent tissue transfer/ 04/03
OSMANY
Leukocytosis
Thrombocytopenia
Hyperkalemia
Hyperglycemia
Kleb UTI
Conditions present prior to admission
History of CKD stage IIIb
Diabetes
Anal squamous cell cancer, stage III
Diagnosed November 2023
s/p chemotherapy/radiation at [place]
Recurrence of disease per pelvic MRI January 2025
Follows oncology ([facility])
Atrial fibrillation on Eliquis
Now off amiodarone Per cardiology, remains on beta-joseph ([place])
Moderate pulm hypertension, echo March 2025, stable compared to prior echo
With dilated RV, normal function, PA pressure 66
Normal EF
Moderate mitral stenosis
History of stroke 1994 and again 2022 per patient
Suspected sleep apnea
Hypothyroidism
Plan:
Extubated and weaned off sedation
Pain control
Rass goal 0
Pain control: ofrimev. PRN dilaudid
Shock, hemorrhagic related to blood loss and likely post-op vasoplegia- Still requiring low dose merrill
Wean pressor as tolerated, midodrine PO continued/increase to 10mg
s/p 4 units of PRBC--Serial H&H. All bloodlines decreased proportionally today.
Suspect RVR with A fib also contributing to hypotension and difficulty weaning of Levophed.
Eliquis on hold in view of bleeding.
Amiodarone bolus and infusion started 04/02, Cardiology consult, tachycardia better controlled. Amiodarone drip continued.
Chronic HFpEF - f/u CXR stable - lasix resumed 40 IV (intermittent due to hypotension)
Unresponsive episode 04/04 possible vagal--repeat CT with effusions, possible PNA--small air in belly
Continue telemetry monitoring
Cardiology planning echo today in setting of continued hypotension
Remains on low supplemental o2, wean to off. Currently 1L
Chest x-ray without acute findings. Concern for LLL pneumonia stable on CXR.
Encourage out of bed, I-S
Aspiration precautions
BIPAP added. Refused overnight
Currently n.p.o., NG tube in place
S/p robotic abdominoperineal resection, BIANKA/BSO, repair of vaginal defect, VRAM flap perineal reconstruction, 03/28/25
Complicated by blood loss, 1 L per OR records. TXA given intra-operatively
Continues TPN, colorectal following
Minimal gas output into ostomy. PRETTY drains output serosanguineous
Diet advancement per team
Was on ancef for kleb UTI
Given increasing WBC, can broaden abx--now on zosyn
WBC now trending down
Continue for now
Concern for superficial necrosis of flap, 04/03
Patient returned to OR for excisional debridement - followed by plastics
Coagulopathy, suspect transfusion related
INR noted to be elevated, give vitamin K 10 mg IV 03/31
Fresh frozen plasma, 2 units, IV calcium given for hypocalcemia 03/31
If additional blood transfusion needed will give FFP and platelets along with PRBC
Follow CBC
HIT panel pending
RUE negative for DVT
Mild OSMANY - Decreased urine out put, dry mouth, also hypotensive, suspect intra-vascular hypovolemia
s/p > 2 ltr LR and Albumin 04/06
Follow creat, IOs
Replete electrolytes as needed
Mg Phos pending
Insulin protocol started due to hyperglycemia with tpn
accu checks q1
DVT prophylaxis: Subcu Lovenox ordered.
GI prophylaxis: Protonix
Data:
CXR 04/02/25- Low lung volumes with patchy bibasilar opacities, likely atelectasis and/or small effusion. No significant effusions or pneumothorax appreciated.
03/28/25- Nasogastric tube is present with tip near the gastroesophageal junction and distal sidehole in the distal esophagus. Consideration for advancement of this tube. Interstitial edema. Linear atelectasis in the right midlung. Mild to moderate
elevation of the left hemidiaphragm, new since previous radiograph. Probable small bilateral pleural effusions.
CT CAP 02/21/25- Circumferential anal wall thickening consistent with known malignancy versus posttreatment change. Probably stable. No evidence of metastatic disease. However, extremely limited exam without IV contrast. Tiny pericardial effusion.
Stable. Progressed small right and new tiny left pleural effusions. Findings suggesting moderate bilateral lower lobe and mild upper lobe pneumonia. New. Mild mediastinal lymphadenopathy. Probably reactive. Stable. Gallstones. Stable. Mild diffuse
bladder wall thickening. This can be seen with cystitis or bladder outlet obstruction. Improved.
Findings suggesting bilateral lower third spacing. Progressed
Echo 03/25/2025: Normal biventricular function with mildly dilated RV, moderate mitral stenosis, severe TR, PA pressure 66
-----
Critical Care time -- The patient is admitted for acute critical illness for the treatment of vital organ failure and/or prevention of further life-threatening conditions. Total care includes time spent in review of history, physical exam,
medications, hemodynamic/ventilator parameters, laboratory data, imaging and discussion with house staff, pharmacy, respiratory therapy, sack sewer machine, and nursing.
Subjective Dataa
Subjective Data
Date of Service:
Date of Service: April 08, 2025
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
Subjective:
Pt reports controlled pain on current regimen. Seen right after PT/OT, reporting stoma pain. Denies new cough, SOB.
Objective Data
Data Reviewed
Vital Signs / I&O / Oxygen:
Vital Signs
Temp Pulse Resp BP Pulse Ox
97.2 F 104 14 85/71 100
04/08/25 07:54 04/08/25 06:30 04/08/25 06:30 04/08/25 06:30 04/08/25 06:30
Intake and Output
04/07/25 04/08/25 04/09/25
06:59 06:59 06:59
Intake Total 2684.3 / 2840.0 2775.1 / 2924.3 601.6 / 601.6
Output Total 3377 / 3377 2648 / 2648 273 / 273
Balance -692.7 / -537.0 127.1 / 276.3 328.6 / 328.6
SaO2 100
Nasal Cannula flow liters per 1
minute
Physical Exam
General: Comfortable, Poor Appetite and Other (NAD)
HEENT: Normocephalic, Anicteric and Moist Mucous Membranes
Cardiovascular: S1-S2, Regular Rhythm, Murmur (n) and Rub (n)
Respiratory: Clear, Wheeze (n), Crackles (n), Rhonchi (n), Non-Labored Respirations and Other (diminished breath sounds LLL)
GI: Soft, Non Distended, Non Tender, NG Tube (Ostomy, PRETTY drains) and Other (abdominal incisions are noted)
Neurology: Awake, Alert, Oriented and No Motor Deficits (Generally weak)
Skin: Good Color (Mild pallor), Jaundice (n), Rash (n) and Bruising (r arm with diffuse ecchymoses )
Labs/Micro/Reports
Lab Data
04/08/25 03:03
04/08/25 03:03

Documented by User: Mayank Scott MD 04/08/25 11:16
Today's Communication / Plan
Recommendations
Plan reviewed with attending.
I reviewed this patient's case independently and in conjunction with the resident. I personally performed the daley components of the evaluation and management of this critically ill patient, including the history, physical exam, and medical
decision-making. I was present during the daley portions of care, reviewed the resident's documentation, and participated in the ongoing management of this patient requiring critical care. Total time spent providing critical care services today was
50 minute. I confirm the medical necessity of these services. I agree with documented assessment and plan
Mayank Scott MD, [facility], [facility]
Assessment
-
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
status post robotic abdominoperineal resection, BIANKA/BSO, VRAM flap perineal reconstruction, 03/28. Patient admitted to ICU postoperatively given significant blood loss, hypotension requiring pressors
Shock, hemorrhagic related to blood loss and likely post-op vasoplegia
Coagulopathy, suspect transfusion related. RUE negative for DVT
S/p robotic abdominoperineal resection, BIANKA/BSO, repair of vaginal defect, VRAM flap perineal reconstruction, 03/28/25
Concern for superficial necrosis of flap, s/p excisional debridement to muscle 10 x 30 cm with adjacent tissue transfer/ 04/03
OSMANY
Leukocytosis
Thrombocytopenia
Hyperkalemia
Hyperglycemia
Kleb UTI
Conditions present prior to admission
History of CKD stage IIIb
Diabetes
Anal squamous cell cancer, stage III
Diagnosed November 2023
s/p chemotherapy/radiation at [place]
Recurrence of disease per pelvic MRI January 2025
Follows oncology ([facility])
Atrial fibrillation on Eliquis
Now off amiodarone Per cardiology, remains on beta-joseph ([place])
Moderate pulm hypertension, echo March 2025, stable compared to prior echo
With dilated RV, normal function, PA pressure 66
Normal EF
Moderate mitral stenosis
History of stroke 1994 and again 2022 per patient
Suspected sleep apnea
Hypothyroidism
Plan:
Extubated and weaned off sedation
Pain control
Rass goal 0
Pain control: ofrimev. PRN dilaudid
Shock, hemorrhagic related to blood loss and likely post-op vasoplegia- Still requiring low dose merrill
Wean pressor as tolerated, midodrine PO continued/increase to 10mg
s/p 4 units of PRBC--Serial H&H. All bloodlines decreased proportionally today.
Suspect RVR with A fib also contributing to hypotension and difficulty weaning of Levophed.
Eliquis on hold in view of bleeding.
Amiodarone bolus and infusion started 04/02, Cardiology consult, tachycardia better controlled. Amiodarone drip continued.
Chronic HFpEF - f/u CXR stable - lasix resumed 40 IV (intermittent due to hypotension)
Unresponsive episode 04/04 possible vagal--repeat CT with effusions, possible PNA--small air in belly
Continue telemetry monitoring
Cardiology planning echo today in setting of continued hypotension
Remains on low supplemental o2, wean to off. Currently 1L
Chest x-ray without acute findings. Concern for LLL pneumonia stable on CXR.
Encourage out of bed, I-S
Aspiration precautions
BIPAP added. Refused overnight
Currently n.p.o., NG tube in place
S/p robotic abdominoperineal resection, BIANKA/BSO, repair of vaginal defect, VRAM flap perineal reconstruction, 03/28/25
Complicated by blood loss, 1 L per OR records. TXA given intra-operatively
Continues TPN, colorectal following
Minimal gas output into ostomy. PRETTY drains output serosanguineous
Diet advancement per team
Was on ancef for kleb UTI
Given increasing WBC, can broaden abx--now on zosyn
WBC now trending down
Continue for now
Concern for superficial necrosis of flap, 04/03
Patient returned to OR for excisional debridement - followed by plastics
Coagulopathy, suspect transfusion related
INR noted to be elevated, give vitamin K 10 mg IV 03/31
Fresh frozen plasma, 2 units, IV calcium given for hypocalcemia 03/31
If additional blood transfusion needed will give FFP and platelets along with PRBC
Follow CBC
HIT panel pending
RUE negative for DVT
Mild OSMANY - Decreased urine out put, dry mouth, also hypotensive, suspect intra-vascular hypovolemia
s/p > 2 ltr LR and Albumin 04/06
Follow creat, IOs
Replete electrolytes as needed
Mg Phos pending
Insulin protocol started due to hyperglycemia with tpn
accu checks q1
DVT prophylaxis: Subcu Lovenox ordered-heparin held-HIT panel pending
GI prophylaxis: Protonix
Data:
CXR 04/02/25- Low lung volumes with patchy bibasilar opacities, likely atelectasis and/or small effusion. No significant effusions or pneumothorax appreciated.
03/28/25- Nasogastric tube is present with tip near the gastroesophageal junction and distal sidehole in the distal esophagus. Consideration for advancement of this tube. Interstitial edema. Linear atelectasis in the right midlung. Mild to moderate
elevation of the left hemidiaphragm, new since previous radiograph. Probable small bilateral pleural effusions.
CT CAP 02/21/25- Circumferential anal wall thickening consistent with known malignancy versus posttreatment change. Probably stable. No evidence of metastatic disease. However, extremely limited exam without IV contrast. Tiny pericardial effusion.
Stable. Progressed small right and new tiny left pleural effusions. Findings suggesting moderate bilateral lower lobe and mild upper lobe pneumonia. New. Mild mediastinal lymphadenopathy. Probably reactive. Stable. Gallstones. Stable. Mild diffuse
bladder wall thickening. This can be seen with cystitis or bladder outlet obstruction. Improved.
Findings suggesting bilateral lower third spacing. Progressed
Echo 03/25/2025: Normal biventricular function with mildly dilated RV, moderate mitral stenosis, severe TR, PA pressure 66
[2025-04-08] MEDS: CORDARONE 518 MG IV (10:34)
[2025-04-08 10:42] LABS: Magnesium 2.1 mg/dl (1.6-2.3)
[2025-04-08 11:01] LABS: Glucose - Point of Care 85 mg/dl (70-99)
[2025-04-08 12:18] LABS: Glucose - Point of Care 111 mg/dl (70-99)
--- NOTE | 2025-04-08 12:50 | W.PN.HOSP.TC ---
Today's Communication/Plan
-
Continue management in ICU.
Monitor platelet count.
HIT antibodies pending.
Assessment / Plan
Assessment / Plan
Impression:
Patient is a 74y F with PMH significant for A-Fib, CHF and anal cancer with recent recurrence who presented to on 03/28 for scheduled surgery for resection of recurrent malignancy. Patient underwent ureteroscopy with bilateral ureteral stents,
robotic APR, BIANKA / BSO, repair of vaginal defect and perineal reconstruction / flap on 03/28/25. She received 2 units PRBC and 1g TXA during the surgeries. Patient was successfully extubated post-op. She was on pressors post-op which were able to
be weaned, but have since been restarted at low dose to maintain adequate perfusion.
Medicine service was consulted for management of patient's multiple medical issues.
Patient Status post debridement on 04/03/2025 of flap to muscle. Pressure offloading per plastics surgery recs.
Worsening thrombocytopenia.
Assessment/plan:
Anal Cancer s/p Robotic APR, BIANKA/BSO, Repair of Vaginal Defect, Perineal Reconstruction / Flap
Concern for superficial necrosis of the flap
- Continue post-op care per surgical service(s). Pain control.
- Continue with NG tube. NGT clamping trial once with signs of ROBF.
- Pain control. OOB/activity per surgery post op.
- IV Ancef transition to Zosyn as below. Improvement in leukocytosis.
- Status post debridement on 04/03/2025 of flap to muscle. Pressure offloading per plastics surgery recs
- Patient now started on TPN.
Acute Blood Loss Anemia
Shock likely secondary to hemorrhagic and hypovolemia
Coagulopathy with thrombocytopenia
- Received 5 units PRBCs total thus far (and 1 g TXA) and 2units of FFP and 10mg of Vitamin K. Hemoglobin at 9
- Currently on low-dose phenylephrine for BP support - wean as able. Midodrine started
- IV ppi. IVF has been stopped.
- Follow H&H and transfuse additional blood products if needed. If persistent downtrend of hemoglobin may need to consider CT abdomen pelvis
- If persistent downtrend in platelets noted check fibrinogen, D-dimer. Low likelihood of DIC.
04/07
HIT at antibodies pending.
04/08
Worsening thrombocytopenia.
Leukocytosis
- Likely multifactorial due to reactive versus UTI versus pneumonia
- Ancef switched to Zosyn. Leukocytosis downtrending. up today but overall trending down.
04/08
Improved leukocytosis
Vasovagal episode on 04/04/2025
- Likely multifactorial in the setting of shock, atrial fibrillation, hypovolemia, fluid shift
- Blood pressure stabilized to some extent. Remains on pressors.
Persistent Atrial Fibrillation
- now in RVR. IV amiodarone started.
- Lopressor IV at low dose with holding parameters for BP.
- Eliquis on hold for surgery, blood loss, etc.
- Cardiology following
Anasarca likely secondary to iatrogenic fluid administration PRBC, FFP, IV fluids etc
- RUE venous doppler pending
- Patient has gained significant weight since admission
- Currently on 40 mg of IV Lasix. Monitor urinary output. May require additional diuresis however limiting factor due to hypotension
Transaminitis likely secondary to shock
- LFTs are improving.
Hypothermia
- Mild hypothermia post-op. Likely combination of anesthesia, blood loss, etc.
- resolved
Acute hypoxic respiratory insufficiency
- Wean O2 as tolerated.
Chronic HFpEF
- Hypotensive at present as noted above.
- Continue to follow accurate I/Os, daily weights, etc.
-
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
- Now started on IV insulin infusion per critical care glycemic protocol
- A1C was 5.7 on 03/26/25.
CKD III
- Stable. SCr is actually improved from prior baseline (1.3 compared to 1.6).
- Monitor urinary output.
Hypothyroidism
- TFTs normal in February of this year.
- Repeat TFTs given hypothermia- TSH wnl.
- Started on IV levothyroid
Hypocalcemia
Hypomagnesemia
Hypophosphatemia
Hypokalemia
-Replete and monitor
Mild hypernatremia
- Monitor for now. Improved
CODE STATUS: Full code
DVT prophylaxis: Heparin on hold for thrombocytopenia
Diet: TPN.
Total time spent on today's encounter was 74 minutes which included time spent in counseling the patient/family regarding diagnosis and treatment plan as listed above, goals of care, and symptom management. Case was discussed with nursing staff,
specialists, and care coordinators/case management. All labs and imaging personally reviewed by me. Remainder the time spent in detailed review of previous records, lab data, imaging, and other medical provider documentation.
Anticipated Discharge: > 48 hours
Subjective/Interval History
-
Date of Service: April 08, 2025
Patient denies chest pain or shortness of breath.
Improved leukocytosis but worsening thrombocytopenia.
Objective Data
-
Labs:
Laboratory Results
04/08/25
03:03
WBC 15.1 H
Hgb 8.6 L
Hct 27.7 L
Plt Count 38 L
Sodium 146 H
Potassium 3.6
Chloride 118 H
Carbon Dioxide 25
BUN 51 H
Creatinine 1.4 H
Glucose 194 H
Calcium 7.6 L
Total Bilirubin 1.2
AST 103 H
ALT 78 H
Alkaline Phosphatase 75
Vital Signs:
Vital Signs
Temp Pulse Resp BP Pulse Ox
97.2 F 125 20 98/75 98
04/08/25 07:54 04/08/25 12:23 04/08/25 12:23 04/08/25 12:23 04/08/25 12:23
I&O
04/07/25 04/08/25 04/09/25
06:59 06:59 06:59
Intake Total 2684.3 / 2840.0 2775.1 / 2924.3 1010.2 / 1010.2
Output Total 3377 / 3377 2648 / 2648 632 / 632
Balance -692.7 / -537.0 127.1 / 276.3 378.2 / 378.2
Physical Exam
-
General: Well Developed, Well Nourished and Obese
HEENT: Normocephalic, Atraumatic and Other (NG tube)
Respiratory: Rales and Non Labored Respirations
Cardiac: S1/S2 and Irregular Rhythm
Breast: Deferred by me
GI: Tender and Other (Drain at surgical site)
Genito-urinary: No Costovertebral Tender
Musculoskeletal: No Clubbing and No Cyanosis
Skin: Warm
Neuro: Awake, Alert, Oriented and AO x 3
Psych: Calm
--- NOTE | 2025-04-08 12:58 | W.PN.CRS1 ---
Today's Communication / Plan
-
continue tpn
HIT panel pending
Assessment/Plan
-
74 yo female with PMH of A-fib, HFpEF, RCC, HTN, HLD, DM, hypothyroidism, CVA, LIZETT and anal cancer s/p adjunctive chemo complicated by recurrence, presented for elective surgery
POD #10 RAL APR (CRS), vaginal defect repair with BIANKA/BSO (RED HAT OPEN STACK ADMINISTRATOR) and VRAM flap (Plastics)
POD #4 Excisional Debridement of perineal flap
Afebrile, HR 90s�100s, merrill has weaned down to 40; NGT�1250ml
WBC 15.1 (19.0), Hb 8.6 (9.3), Platelets 38 (47)
-H/H stable s/p 2 units FFP and 5 units PRBC's total this admit, last transfusion was on 03/31
�No return of bowel function; continue NPO with NGT in place to suction and await return of bowel function
�Continue TPN
�Continue Zosyn s/p flap necrosis. Dr. Mccabe will come by this afternoon to examine the flaps.
�Maintain MAP greater than 65, wean merrill as tolerated
�Recommend workup for thrombocytopenia; will defer to primary; hold DVT PPx. HIT panel pending.
�Strict intake/output
�c/w PERTTY drains, follow outputs
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
�Encourage IS while awake
�Pain control with Tylenol and Dilaudid as needed
�Appreciate hospitalist and record clerk
-OOB as tolerated with PT
Subjective Data
Procedure
03/28/2025- RAL APR (CRS), vaginal defect repair with BIANKA/BSO (RED HAT OPEN STACK ADMINISTRATOR) and VRAM flap (Plastics)
Subjective Data
Date of Service: April 08, 2025
Patient does not have any complaints. Denies nausea or vomiting, pain is controlled.
Objective Data
-
Vital Signs
Temp Pulse Resp BP Pulse Ox
97.2 F 125 20 98/75 98
04/08/25 07:54 04/08/25 12:23 04/08/25 12:23 04/08/25 12:23 04/08/25 12:23
Intake & Output
04/07/25 04/08/25 04/09/25
06:59 06:59 06:59
Intake Total 2684.3 / 2840.0 2775.1 / 2924.3 1010.2 / 1010.2
Output Total 3377 / 3377 2648 / 2648 632 / 632
Balance -692.7 / -537.0 127.1 / 276.3 378.2 / 378.2
Intake:
IV fluids (Total) 999.3 / 1100.0 955.1 / 1049.3 435.2 / 435.2
Amiodarone. 400.8 / 417.5 400.8 / 417.5 100.2 / 100.2
Insulin 119.5 / 123.5 69.3 / 73.3 11.0 / 11.0
KCL 0 / 67.5 270.0 / 270.0
Kphos 0 / 65 260 / 260
Neosyneprhrine 429 / 444 225 / 231 54 / 54
mag sulfate 50 / 50
IV piggybacks 455 / 455 250 / 250 160 / 160
TPN/PPN 1050 / 1105 1320 / 1375 330 / 330
Amount instilled into GI Tube ( 180 / 180 250 / 250 85 / 85
Total)
Emery Sump 180 / 180 250 / 250 85 / 85
Output:
Drain Output (Total) 1177 / 1177 1173 / 1173 332 / 332
Left Lower Abdomen Pierce- 555 / 555 495 / 495 148 / 148
Hoover
Right Lower Abdomen Pierce- 570 / 570 648 / 648 154 / 154
Hoover B
Sacrum Pierce-Sneha C 52 / 52 30 / 30 30 / 30
Gastrointestinal tube output ( 300 / 300 125 / 125
Total)
Emery Sump 300 / 300 125 / 125
Urine, Rogers 1900 / 1900 1350 / 1350 300 / 300
Lab Results
04/08/25 03:03
04/08/25 03:03
Physical Exam
-
General: No Acute Distress and AOx3
Abdomen: Soft, Non Distended, Non Tender and Other (Ostomy pink with caryn in place, bowel sweat in bag; left PRETTY-serous, right PRETTY serous, sacral PRETTY serosanguineous)
Rectal: Other (Primary closure of perineal wound with serous drainage; edges well-approximated with patchy areas of hess near posterior aspect)
Skin: Warm and Dry
--- NOTE | 2025-04-08 13:00 | W.PN.PLAS ---
Today's Communication
-
Pressure offloading is priority
Drains to stay
Cont abx
Progress Note
Subjective Data
Doing well, some pain on 'behind' and at stoma site. Anxious to be able to drink and eat.
Objective Data
Vital Signs
Temp Pulse Resp BP Pulse Ox
97.6 F 113 17 83/61 97
04/08/25 20:04 04/08/25 21:00 04/08/25 21:00 04/08/25 21:00 04/08/25 21:00
Intake and Output
04/07/25 04/08/25 04/09/25
06:59 06:59 06:59
Intake Total 2684.3 / 2840.0 2775.1 / 2924.3 1883.5 / 1883.5
Output Total 3377 / 3377 2648 / 2648 1575 / 1575
Balance -692.7 / -537.0 127.1 / 276.3 308.5 / 308.5
Intake:
IV fluids (Total) 999.3 / 1100.0 955.1 / 1049.3 722.5 / 722.5
Amiodarone. 400.8 / 417.5 400.8 / 417.5 250.5 / 250.5
Insulin 119.5 / 123.5 69.3 / 73.3 37.0 / 37.0
KCL 0 / 67.5 270.0 / 270.0
Kphos 0 / 65 260 / 260
Neosyneprhrine 429 / 444 225 / 231 165 / 165
mag sulfate 50 / 50
IV piggybacks 455 / 455 250 / 250 160 / 160
TPN/PPN 1050 / 1105 1320 / 1375 826 / 826
Amount instilled into GI Tube ( 180 / 180 250 / 250 175 / 175
Total)
[place] Sump 180 / 180 250 / 250 175 / 175
Output:
Drain Output (Total) 1177 / 1177 1173 / 1173 700 / 700
Left Lower Abdomen Pierce- 555 / 555 495 / 495 348 / 348
Hoover
Right Lower Abdomen Pierce- 570 / 570 648 / 648 294 / 294
Hoover B
Sacrum Pierce-Hoover C 52 / 52 30 / 30 58 / 58
Gastrointestinal tube output ( 300 / 300 125 / 125 100 / 100
Total)
[place] Sump 300 / 300 125 / 125 100 / 100
Urine, Rogers 1900 / 1900 1350 / 1350 775 / 775
PEX:
NAD
No increased WOB
NGT
Alert and interactive
Diffusley swollen
RUE bruising
Abdominal incision with routine healing
Abdominal carleen drains serosang
Posterior midline incision intact
Surrounding pressue related changes, early pressure sore indicators
Perineal drain with fluid c/w fat necrosis
Lab Results
04/08/25 03:03
04/08/25 03:03
Wound Documentation
04/08/25 15:05 Wound Note by Radha Kelly
WOC RN: Appliance changed today, daughter and sister in law at bedside. Stoma pale pink, slightly budded, for small amt of straw colored output. Peristomal skin is blotchy red in some areas. Yaneth seal and 2 3/4' flat wafer with pouch applied. Will
call [facility] for stoma powder to use next change. Teaching done with patient and family regarding appliance change, emptying and skin care. Answered all questions, supplies at bedside.
Initialized on 04/08/25 15:05 - END OF NOTE
Assessment / Plan
Status post myocutaneous flap reconstruction after APR
No prolonged direct sitting or straight supine position
Pressure offloading to the flap/ perineum Q1 hour position changes, pressure offloading mattress
Strip and record CARLEEN drain output
Cont abx
Trend WBC
[2025-04-08 13:15] LABS: Glucose - Point of Care 134 mg/dl (70-99)
--- NOTE | 2025-04-08 14:05 | PTCARENOTE ---
echo done at bedside
[2025-04-08 14:19] LABS: Glucose - Point of Care 179 mg/dl (70-99)
--- NOTE | 2025-04-08 15:05 | WOUNDNOTE ---
[facility] RN: Appliance changed today, daughter and sister in law at bedside. Stoma pale pink, slightly budded, for small amt of straw colored output. Peristomal skin is blotchy red in some areas. Yaneth seal and 2 3/4' flat wafer with pouch applied. Will
call [facility] for stoma powder to use next change. Teaching done with patient and family regarding appliance change, emptying and skin care. Answered all questions, supplies at bedside.
--- NOTE | 2025-04-08 15:58 | CM ---
IV/Amiodarone, wean, IV/Zosyn, Follow labs, TPN. Discharge POC: SNF. referrals previously forwarded.
--- NOTE | 2025-04-08 16:30 | PTCARENOTE ---
Systems reviewed. No changes. Maintained on merrill,amio,tpn and insulin has now been resumed after blood sugar 95 this am. Linens changed and positioning pad placed below pt. Pt reports pain slightly improved after ofirmev. Otherwise see flow
sheets.
[2025-04-08 16:32] LABS: Glucose - Point of Care 234 mg/dl (70-99)
[2025-04-08] MEDS: LEVOTHROID 115 MCG IV (17:35)
[2025-04-08 17:44] LABS: Glucose - Point of Care 242 mg/dl (70-99)
[2025-04-08 18:37] LABS: Glucose - Point of Care 227 mg/dl (70-99)
[2025-04-08 19:41] LABS: Glucose - Point of Care 203 mg/dl (70-99)
[2025-04-08] MEDS: DILAUDID 0.25 MG IV (19:48)
[2025-04-08 20:39] LABS: Glucose - Point of Care 171 mg/dl (70-99)
[2025-04-08] MEDS: Parenteral Nutrition, Central 1340 IV (20:55)
--- NOTE | 2025-04-08 21:15 | PTCARENOTE ---
Received pt from previous RN. Pt is AAOx3, drowsy at times, flat. Afib on the monitor, general +3 edema, right arm edema and weaping. Received pt on 40 mcgs of merrill, goal MAP >65, titrated per protocol (see worklist). Pt on 1L NC O2 sat 97%, lungs
diminished. Colostomy, 3 PRETTY drains intact. Right nare NGT @ 55 cm to low intermittent suction. Rogers in place, hygiene provided. Amio and insulin gtt (see worklist). TPN. Pt c/o 8 right hip and butt pain, PRN Dilaudid given (see MAR). CHG bath
provided. Call chaves in reach. Safe environment maintained.
[2025-04-08 21:44] LABS: Glucose - Point of Care 126 mg/dl (70-99)
--- NOTE | 2025-04-08 22:30 | RESPNOTE ---
PT adamantly refuses to wear her BIPAP and says she cannot tolerate it, will attempt placement again leroy.
[2025-04-08 22:43] LABS: Glucose - Point of Care 112 mg/dl (70-99)
[2025-04-08 23:40] LABS: Glucose - Point of Care 95 mg/dl (70-99)
[2025-04-09] VITALS (29 sets, daily range): BP systolic 78–107; BP diastolic 48–85; BMI 40.9
--- NOTE | 2025-04-09 00:21 | PTCARENOTE ---
Systems reviewed, no new changes in assessment. Gtts maintained (see worklist). Safe environment maintained.
[2025-04-09 00:43] LABS: Glucose - Point of Care 103 mg/dl (70-99)
[2025-04-09] MEDS: OFIRMEV 100 IV ×3 (01:40→14:26)
[2025-04-09 01:42] LABS: Glucose - Point of Care 133 mg/dl (70-99)
[2025-04-09 02:41] LABS: Glucose - Point of Care 171 mg/dl (70-99)
[2025-04-09 03:40] LABS: Glucose - Point of Care 203 mg/dl (70-99)
--- NOTE | 2025-04-09 03:44 | PTCARENOTE ---
Systems reviewed, no new changes in assessment. AM labs provided. Insulin gtt restarted per protocol. Adam gtt off (see worklist). Safe environment maintained.
[2025-04-09 04:07] LABS: ALT (SGPT) 52 U/L (0-35); AST (SGOT) 44 U/L (14-36); Albumin 2.0 g/dl (3.5-5.0); Alkaline Phosphatase 74 U/L (38-126); Blood Urea Nitrogen 54 mg/dl (7-17); Calcium 7.7 mg/dl (8.4-10.2); Carbon Dioxide 24 mmol/L (22-30); Chloride 118 mmol/L (98-107); Estimated Creatinine Clearance 37 ml/min; Glucose 193 mg/dl (70-99); Potassium 4.2 mmol/L (3.5-5.1); Sodium 147 mmol/L (135-145); Total Protein 4.6 g/dl (6.3-8.2); eGFR 39.23
[2025-04-09 04:39] LABS: Glucose - Point of Care 210 mg/dl (70-99)
[2025-04-09] MEDS: ZOSYN 50 IV ×4 (05:16→23:39)
[2025-04-09] MEDS: NOVOLIN R INSULIN INFUSION 100 IV (05:24)
[2025-04-09 05:31] LABS: Glucose - Point of Care 197 mg/dl (70-99)
[2025-04-09 06:00] LABS: Hematocrit 28.4 % (37.0-47.0); Hemoglobin 8.6 g/dL (12.0-16.0); Mean Corp Hgb Conc. 30.3 g/dL (33.0-37.0); Mean Corpuscular Volume 99.6 fL (81.0-99.0); Platelet Count 43 10^3/uL (130-400); Red Cell Dist. Width 19.2 % (11.5-14.5)
[2025-04-09 06:35] LABS: Glucose - Point of Care 162 mg/dl (70-99)
[2025-04-09 07:15] LABS: Glucose - Point of Care 141 mg/dl (70-99)
[2025-04-09] MEDS: DESENEX/MITRAZOL/ZEASORB 1 APPLIC TOPICAL ×2 (07:27→20:20)
[2025-04-09] MEDS: NSS (PRESERVATIVE FREE) 10 ML IV (07:28)
[2025-04-09] MEDS: NOVOLOG FLEXPEN SC ×3 (07:28→15:31)
[2025-04-09] MEDS: PROTONIX IV 40 MG IV (07:29)
[2025-04-09] MEDS: DILAUDID 0.25 MG IV ×4 (07:46→21:43)
--- NOTE | 2025-04-09 07:47 | W.PN.INTV ---
Today's Communication / Plan
Recommendations
Antibiotics
Wound care
TPN and insulin drip
Clamp nasogastric tube
Wean merrill
Assessment
-
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
status post robotic abdominoperineal resection, BIANKA/BSO, VRAM flap perineal reconstruction, 03/28. Patient admitted to ICU postoperatively given significant blood loss, hypotension requiring pressors
Shock, hemorrhagic related to blood loss and likely post-op vasoplegia
Coagulopathy, suspect transfusion related. RUE negative for DVT
S/p robotic abdominoperineal resection, BIANKA/BSO, repair of vaginal defect, VRAM flap perineal reconstruction, 03/28/25
Concern for superficial necrosis of flap, s/p excisional debridement to muscle 10 x 30 cm with adjacent tissue transfer/ 04/03
OSMANY
Leukocytosis
Thrombocytopenia
Hyperkalemia
Hyperglycemia
Kleb UTI
Conditions present prior to admission
History of CKD stage IIIb
Diabetes
Anal squamous cell cancer, stage III
Diagnosed November 2023
s/p chemotherapy/radiation at [facility]
Recurrence of disease per pelvic MRI January 2025
Follows oncology ([facility])
Atrial fibrillation on Eliquis
Now off amiodarone Per cardiology, remains on beta-joseph (Shadi)
Moderate pulm hypertension, echo March 2025, stable compared to prior echo
With dilated RV, normal function, PA pressure 66
Normal EF
Moderate mitral stenosis
History of stroke 1994 and again 2022 per patient
Suspected sleep apnea
Hypothyroidism
Plan:
Respiratory status relatively stable
Continue supplemental oxygen-currently on 1 L
Refusing BiPAP-likely has obstructive sleep apnea
Aspiration precautions
Nebulizers if needed-currently not bronchospastic
Pressors as needed-currently on merrill-Hope to wean off
Attempt to wean pressors
Continue midodrine
Monitor lactate if needed
Follow hemoglobin and platelet count
Transfuse as needed
HIT pending-low suspicion-low 4 T-score
Cardiology following-correspondence reviewed-Dr. Scott reviewed with Dr. Alvarado on 04/08/2025
Amiodarone continues
Echocardiogram 04/08/2025-EF 60-65%, moderate to severe tricuspid regurgitation, PA systolic 85
Atrial fibrillation rate control
Chronic heart failure preserved EF
Currently n.p.o., NG tube in place-to be clamped 04/09/2025
S/p robotic abdominoperineal resection, BIANKA/BSO, repair of vaginal defect, VRAM flap perineal reconstruction, 03/28/25
Complicated by blood loss, 1 L per OR records. TXA given intra-operatively
Colorectal surgery following-correspondence reviewed-Dr. Scott reviewed with colorectal surgery
TPN per surgery
Diet advancement per team
Cultures reviewed
Empiric antibiotics
Monitor leukocytosis and temperature curve
Concern for superficial necrosis of flap, 04/03
Patient returned to OR for excisional debridement - followed by plastics
Mild OSMANY - Decreased urine out put, dry mouth, also hypotensive, suspect intra-vascular hypovolemia
s/p > 2 ltr LR and Albumin over last 24 hrs
Initiate LR infusion at 100/h. Labs in AM. Avoid hypotension.
Follow creat, IOs
Replete electrolytes as needed
Monitor blood sugars closely
Insulin drip continues
DVT prophylaxis--heparin held due to thrombocytopenia
GI prophylaxis-on Protonix
Nutrition per surgery
Bedside range of motion/eventual physical and Occupational Therapy
Eventual outpatient pulmonary/sleep disorders follow-up
Critical care statement: A total of 45 minutes of critical care time was provided for this patient today. This includes management of unstable vital signs, evaluation of the patient at bedside, reviewing the patient�s pertinent medical records
including radiographs, pressor management, microbiology, laboratory evaluations, and��discussion with primary team, consultants, pharmacy, nutrition, physical therapy, case management, charge nurse, critical care nursing, and respiratory therapy.
Data:
CXR 04/02/25- Low lung volumes with patchy bibasilar opacities, likely atelectasis and/or small effusion. No significant effusions or pneumothorax appreciated.
03/28/25- Nasogastric tube is present with tip near the gastroesophageal junction and distal sidehole in the distal esophagus. Consideration for advancement of this tube. Interstitial edema. Linear atelectasis in the right midlung. Mild to moderate
elevation of the left hemidiaphragm, new since previous radiograph. Probable small bilateral pleural effusions.
CT CAP 02/21/25- Circumferential anal wall thickening consistent with known malignancy versus posttreatment change. Probably stable. No evidence of metastatic disease. However, extremely limited exam without IV contrast. Tiny pericardial effusion.
Stable. Progressed small right and new tiny left pleural effusions. Findings suggesting moderate bilateral lower lobe and mild upper lobe pneumonia. New. Mild mediastinal lymphadenopathy. Probably reactive. Stable. Gallstones. Stable. Mild diffuse
bladder wall thickening. This can be seen with cystitis or bladder outlet obstruction. Improved.
Findings suggesting bilateral lower third spacing. Progressed
Echo 03/25/2025: Normal biventricular function with mildly dilated RV, moderate mitral stenosis, severe TR, PA pressure 66
Subjective Dataa
Subjective Data
Date of Service:
Date of Service: April 09, 2025
Chief Complaint: Payroll Tax Specialist Follow Up and Pulmonary Follow Up
Subjective:
No complaints of worsening shortness of breath, chest pain, patient otherwise managed
Review of Systems
General: Other (Per HPI)
Objective Data
Data Reviewed
Vital Signs / I&O / Oxygen:
Vital Signs
Temp Pulse Resp BP Pulse Ox
97.4 F 122 20 97/56 96
04/09/25 07:40 04/09/25 07:27 04/09/25 07:00 04/09/25 07:27 04/09/25 07:00
Intake and Output
04/08/25 04/09/25 04/10/25
06:59 06:59 06:59
Intake Total 2775.1 / 2924.3 2717.3 / 2717.3
Output Total 2648 / 2648 2265 / 2265
Balance 127.1 / 276.3 452.3 / 452.3
SaO2 96
Nasal Cannula flow liters per 1
minute
Physical Exam
General: Respiratory Distress (n), Comfortable, Poor Appetite and Other (NAD)
HEENT: Normocephalic, Anicteric and Moist Mucous Membranes
Cardiovascular: Regular Rhythm, Murmur (n) and Rub (n)
Respiratory: Wheeze (n), Crackles (n), Rhonchi (n), Non-Labored Respirations, Accessory Resp Muscle Use (n) and Stridor
GI: Soft, Non Distended, Non Tender, NG Tube (Ostomy, PRETTY drains) and Other (abdominal incisions are noted)
Neurology: Awake, Alert, Oriented and No Motor Deficits (Generally weak)
Skin: Warm, Good Color (Mild pallor), Cyanosis (n), Jaundice (n) and Rash (n)
Labs/Micro/Reports
Lab Data
04/09/25 05:10
04/09/25 03:30
--- NOTE | 2025-04-09 07:59 | PN.DE.MGMTRT ---
Insulin Management
- -
04/09/2025 Diabetes Management Consult Follow up
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 PMH anal sq. cell CA, pacemaker, diabetes, hypothyroid, obesity, a fib, HTN, ASCVD/CVA, HCL. Prior to admission was taking Tresiba 8 units @ HS with
glyburide 2.5 mg daily. A1C 5.7%, cr 1.4, eGFR 39.23.
Patient is awake and alert able to discuss diabetes care, states she has had diabetes 20 years, has glucose monitor. States she only took the glipizide if her glucose was > 135.
Patient currently receiving TPN, and is on the critical care glycemic protocol. Glucose range 112 to 227, receiving 3 to 6 units of insulin per hour. Insulin infusion off from 12pm to 3pm, restarted @ 4pm for glucose 234, off again at 11pm for
glucose 95, to 2AM, restarted at 0300 for glucose 203 infusion @ 3 units per hour. At the time of my visit insulin infusion off since 8am. Discussed with nurse, will follow testing protocol. If insulin is not resumed will start Q 6 hour moderate
corrective insulin and lantus 8 units @ hs. Nurse to notify me if insulin infusion protocol for testing does not resume insulin infusion.
Will continue insulin infusion while on TPN.
Discussed with nurse.
Will follow.
Diabetes History
- -
Type of Diabetes: 2
Pre-Admission Diabetes Regimen
04/09/25
03:30
Creatinine 1.4 H
Lab Results
Hemoglobin A1c 5.7 % (4.0-5.6) H 03/26/25 10:51
Insulin Pump Settings
IP Diabetes Regimen
04/08/25 04/08/25 04/08/25
08:05 10:01 10:50
Glucose
POC Glucose 118 H 95 85
04/08/25 04/08/25 04/08/25
12:06 13:04 14:08
Glucose
POC Glucose 111 H 134 H 179 H
04/08/25 04/08/25 04/08/25
16:20 17:33 18:25
Glucose
POC Glucose 234 H 242 H 227 H
04/08/25 04/08/25 04/08/25
19:30 20:28 21:31
Glucose
POC Glucose 203 H 171 H 126 H
04/08/25 04/08/25 04/09/25
22:31 23:28 00:32
Glucose
POC Glucose 112 H 95 103 H
04/09/25 04/09/25 04/09/25
01:29 02:30 03:29
Glucose
POC Glucose 133 H 171 H 203 H
04/09/25 04/09/25 04/09/25
03:30 04:27 05:18
Glucose 193 H
POC Glucose 210 H 197 H
04/09/25 04/09/25
06:23 07:04
Glucose
POC Glucose 162 H 141 H
Patient Education
--- NOTE | 2025-04-09 08:35 | W.PN.INTV ---
Documented by User: Anne Ventura MD, Resident 04/09/25 11:19
Today's Communication / Plan
Recommendations
plan reviewed with attending
Assessment
-
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
status post robotic abdominoperineal resection, BIANKA/BSO, VRAM flap perineal reconstruction, 03/28. Patient admitted to ICU postoperatively given significant blood loss, hypotension requiring pressors
Shock, hemorrhagic related to blood loss and likely post-op vasoplegia
Coagulopathy, suspect transfusion related. RUE negative for DVT
S/p robotic abdominoperineal resection, BIANKA/BSO, repair of vaginal defect, VRAM flap perineal reconstruction, 03/28/25
Concern for superficial necrosis of flap, s/p excisional debridement to muscle 10 x 30 cm with adjacent tissue transfer/ 04/03
OSMANY
Leukocytosis
Thrombocytopenia
Hyperkalemia
Hyperglycemia
Kleb UTI
Conditions present prior to admission
History of CKD stage IIIb
Diabetes
Anal squamous cell cancer, stage III
Diagnosed November 2023
s/p chemotherapy/radiation at [facility]
Recurrence of disease per pelvic MRI January 2025
Follows oncology ([facility])
Atrial fibrillation on Eliquis
Now off amiodarone Per cardiology, remains on beta-joseph (Shadi)
Moderate pulm hypertension, echo March 2025, stable compared to prior echo
With dilated RV, normal function, PA pressure 66
Normal EF
Moderate mitral stenosis
History of stroke 1994 and again 2022 per patient
Suspected sleep apnea
Hypothyroidism
Plan:
Neuro:
Extubated and weaned off sedation
Pain control
Rass goal 0
Pain control: ofrimev. PRN dilaudid
Cardio:
Shock, hemorrhagic related to blood loss and likely post-op vasoplegia. Off pressors on midodrine 10mg
Suspect RVR with A fib also contributing to hypotension and difficulty weaning of Levophed.
Eliquis on hold in view of bleeding.
Amiodarone bolus and infusion started 04/02, Cardiology consult, tachycardia better controlled. Amiodarone drip continued.
Chronic HFpEF - f/u CXR stable
Continue telemetry monitoring
Echo yesterday demonstrated PASP 85 prior 66
Pulm:
Remains on low supplemental o2, wean to off. Currently 1L
Chest x-ray without acute findings. Concern for LLL pneumonia stable on CXR. Repeat CXR if change in clinical symptoms. On broad spectrum abx for UTI.
Encourage out of bed, I-S
Aspiration precautions
BIPAP added. Refused overnight
GI:
Currently n.p.o., NG tube in place. Clamp trial per surgeon. Plan to transition to PO medications by tomorrow if sucessful trial.
S/p robotic abdominoperineal resection, BIANKA/BSO, repair of vaginal defect, VRAM flap perineal reconstruction, 03/28/25
Continues TPN, pending NG clamp trial. Gas output into ostomy, increased bowel activity.
Colorectal following
PRETTY drains output serosanguineous stable.
ID:
Was on ancef for kleb UTI. Increased WBC and broadened abx--now on zosyn
WBC stable. Continue zosyn.
Patient returned to OR for excisional debridement - followed by plastics. Flap evaluated by surgeons today
Heme:
Coagulopathy, suspect transfusion related
INR noted to be elevated, gave vitamin K 10 mg IV 03/31. Fresh frozen plasma, 2 units, IV calcium given for hypocalcemia 03/31
If additional blood transfusion needed will give FFP and platelets along with PRBC
Follow CBC. Hgb and plts stable.
HIT panel pending.
:
Mild OSMANY - Decreased urine out put, dry mouth, also hypotensive, suspect intra-vascular hypovolemia
s/p > 2 ltr LR and Albumin 04/06
Follow creat, IOs
Replete electrolytes as needed
Mg Phos pending
Endocrine:
Insulin protocol started due to hyperglycemia with tpn
accu checks q1
Pending NG/TPN status, we will reassess glycemic protocols once PO diet resumes
DVT prophylaxis: Heparin held-HIT panel pending. SCDs in place. Plts 43
GI prophylaxis: Protonix
Data:
CXR 04/02/25- Low lung volumes with patchy bibasilar opacities, likely atelectasis and/or small effusion. No significant effusions or pneumothorax appreciated.
03/28/25- Nasogastric tube is present with tip near the gastroesophageal junction and distal sidehole in the distal esophagus. Consideration for advancement of this tube. Interstitial edema. Linear atelectasis in the right midlung. Mild to moderate
elevation of the left hemidiaphragm, new since previous radiograph. Probable small bilateral pleural effusions.
CT CAP 02/21/25- Circumferential anal wall thickening consistent with known malignancy versus posttreatment change. Probably stable. No evidence of metastatic disease. However, extremely limited exam without IV contrast. Tiny pericardial effusion.
Stable. Progressed small right and new tiny left pleural effusions. Findings suggesting moderate bilateral lower lobe and mild upper lobe pneumonia. New. Mild mediastinal lymphadenopathy. Probably reactive. Stable. Gallstones. Stable. Mild diffuse
bladder wall thickening. This can be seen with cystitis or bladder outlet obstruction. Improved.
Findings suggesting bilateral lower third spacing. Progressed
Echo 03/25/2025: Normal biventricular function with mildly dilated RV, moderate mitral stenosis, severe TR, PA pressure 66
Subjective Dataa
Subjective Data
Date of Service:
Date of Service: April 09, 2025
Chief Complaint: Health Assessment And Treatment Teacher Follow Up and Pulmonary Follow Up
Subjective:
Pt reports no changes from yesterday. Continued pain control on current regimen.
Objective Data
Data Reviewed
Vital Signs / I&O / Oxygen:
Vital Signs
Temp Pulse Resp BP Pulse Ox
97.4 F 122 20 97/56 96
04/09/25 07:40 04/09/25 07:27 04/09/25 07:00 04/09/25 07:27 04/09/25 07:00
Intake and Output
04/08/25 04/09/25 04/10/25
06:59 06:59 06:59
Intake Total 2775.1 / 2924.3 2717.3 / 2717.3
Output Total 2648 / 2648 2265 / 2265
Balance 127.1 / 276.3 452.3 / 452.3
SaO2 96
Nasal Cannula flow liters per 1
minute
Physical Exam
General: Comfortable, Poor Appetite and Other (NAD)
HEENT: Normocephalic, Anicteric and Moist Mucous Membranes
Cardiovascular: S1-S2, Regular Rhythm, Murmur (n) and Rub (n)
Respiratory: Rhonchi (n) and Non-Labored Respirations
GI: Soft, Non Distended, Non Tender, NG Tube (Ostomy with minimal stool and gas output, PRETTY drains yellow serosanginous fluid) and Other (abdominal incisions are noted)
Neurology: Awake, Alert, Oriented and No Motor Deficits (Generally weak)
Skin: Warm, Good Color (Mild pallor), Cyanosis (n), Jaundice (n) and Rash (n)
Labs/Micro/Reports
Lab Data
04/09/25 05:10
04/09/25 03:30

Documented by User: Mayank Scott MD 04/09/25 11:53
Today's Communication / Plan
Recommendations
plan reviewed with attending
I reviewed this patient's case independently and in conjunction with the resident. I personally performed the daley components of the evaluation and management of this critically ill patient, including the history, physical exam, and medical
decision-making. I was present during the daley portions of care, reviewed the resident's documentation, and participated in the ongoing management of this patient requiring critical care. Total time spent providing critical care services today was
50 minute. I confirm the medical necessity of these services. I agree with documented assessment and plan
Mayank Scott MD, FCCP, DABRAFFY
--- NOTE | 2025-04-09 08:40 | W.PN.CRS1 ---
Today's Communication / Plan
-
ngt clamp
Assessment/Plan
-
74 yo female with PMH of A-fib, HFpEF, RCC, HTN, HLD, DM, hypothyroidism, CVA, LIZETT and anal cancer s/p adjunctive chemo complicated by recurrence, presented for elective surgery
POD #11 RAL APR (CRS), vaginal defect repair with BIANKA/BSO ([employer]) and VRAM flap (Plastics)
POD #5 Excisional Debridement of perineal flap
Afebrile, HR 110s�120s, NGT: 150ml
WBC 12 (151), Platelets 43 (38)
-H/H stable s/p 2 units FFP and 5 units PRBC's total this admit, last transfusion was on 03/31
�NGT clamping trial today - if out then NPO
�Continue TPN
�Continue Zosyn s/p flap necrosis. Dr. Mccabe will come by this afternoon to examine the flaps.
�Maintain MAP greater than 65, wean merrill as tolerated
�Recommend workup for thrombocytopenia; will defer to primary; hold DVT PPx. HIT panel pending.
�Strict intake/output
�c/w PRETTY drains, follow outputs
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
�Encourage IS while awake
�Pain control with Tylenol and Dilaudid as needed
�Appreciate hospitalist and liturgical music director
-OOB as tolerated with PT
Subjective Data
Procedure
03/28/2025- RAL APR (CRS), vaginal defect repair with BIANKA/BSO ([employer]) and VRAM flap (Plastics)
Subjective Data
Date of Service: April 09, 2025
Patient states she has no complaints. No nausea or vomiting. Stoma having some function now.
Objective Data
-
Vital Signs
Temp Pulse Resp BP Pulse Ox
97.4 F 122 20 97/56 96
04/09/25 07:40 04/09/25 07:27 04/09/25 07:00 04/09/25 07:27 04/09/25 07:00
Intake & Output
04/08/25 04/09/25 04/10/25
06:59 06:59 06:59
Intake Total 2775.1 / 2924.3 2717.3 / 2717.3
Output Total 2648 / 2648 2265 / 2265
Balance 127.1 / 276.3 452.3 / 452.3
Intake:
IV fluids (Total) 955.1 / 1049.3 922.3 / 922.3
Amiodarone. 400.8 / 417.5 400.8 / 400.8
Insulin 69.3 / 73.3 56.5 / 56.5
KCL 0 / 67.5 270.0 / 270.0
Kphos 260 / 260
Neosyneprhrine 225 / 231 195 / 195
IV piggybacks 250 / 250 260 / 260
TPN/PPN 1320 / 1375 1330 / 1330
Amount instilled into GI Tube ( 250 / 250 205 / 205
Total)
[place] Sump 250 / 250 205 / 205
Output:
Drain Output (Total) 1173 / 1173 940 / 940
Left Lower Abdomen Pierce- 495 / 495 498 / 498
Hoover
Right Lower Abdomen Pierce- 648 / 648 379 / 379
Hoover B
Sacrum Pierce-Hoover C 63 / 63
Gastrointestinal tube output ( 125 / 125 150 / 150
Total)
[place] Sump 125 / 125 150 / 150
Urine, Rogers 1350 / 1350 1175 / 1175
Lab Results
04/09/25 05:10
04/09/25 03:30
Physical Exam
-
General: No Acute Distress and AOx3
Abdomen: Soft, Non Distended and Non Tender
Wound: Other (sacral wound showing some dehiscence, purple hess pressure wound (improved from yesterday))
[2025-04-09 08:42] LABS: Glucose - Point of Care 99 mg/dl (70-99)
--- NOTE | 2025-04-09 08:49 | W.PN.CD ---
Today's Communication / Plan
-
continue to monitor bp
continue iv amiodarone
Impression / Plan
-
Anal cancer:
- s/p robotic abdominoperineal resection, repair of vaginal defect, robotic total laparoscopic hysterectomy, bilateral salpingo-oophorectomy, vertical rectus abdominis myocutaneous flap reconstruction of the perineum, cystoscopy and bilateral
ureteral stent insertion (03/28/25)
- post-op course complicated by hypotension requiring blood products, fluid, vasopressors (suspected hemorrhagic shock- diagnosis is threat to life)
- S/p hemophagic shock, s/p 5 U PRBC (4 on 03/28/2025 and 1 on 03/31/2025)
Persistent AFib
- Mildly elevated rates. Appropriate for current clinical circumstance. Using iv amio b/c of BP and GI status
-possible transition to po tomorrow
- Resume Eliquis when appropriate
Chronic HFpEF:
- Seems comfortable
- From her critical illness and support her weight is way up from baseline 86.3 kg. Now at 98 kg. Patient with upper and lower extremity edema but still with low blood pressures which are limiting diuretic use
- Had one dose of Lasix 04/04/2025
- Hold on diuresis, tolerated the volume and BP still soft, low O2 needs at this time. Will need fluid mobilization at some point if she does not diurese on her own
.
Hypotension. Blood pressures remain low. She has had asymptomatic systolic blood pressures in the 80s current blood pressure 95/78. Continue to monitor closely. Some challenges in obtaining blood pressure is not using right arm. Only using left
wrist at this point. Continue to monitor pressures closely. repeat echo with normal left ventricular function
Pacemaker followed in our office
Subjective: denies CP or dyspnea
Data:
Echo 03/25/25: LVEF 55-60%. Mod MS, mean 5 mmHg. Mod-severe TR, est PASP 66 mmHg, est RA 8 mmHg. Stable from 02/15/2024
Echo 04/08/2025: LVEF 60-65%, dilate RV and reduced EF, PASP 85mmHg
Physical Exam
Vital Signs/Labs
Vital Signs
Temp Pulse Resp BP Pulse Ox
97.4 F 125 21 94/48 96
04/09/25 07:40 04/09/25 08:30 04/09/25 08:30 04/09/25 08:00 04/09/25 08:30
04/08/25 04/09/25 04/10/25
06:59 06:59 06:59
Actual Weight 214 lb 8 oz 216 lb 9.6 oz
04/09/25 05:10
04/09/25 03:30
PT 21.5 Sec (11.4-14.6) H 04/04/25 14:51
INR 1.85 04/04/25 14:51
APTT 32.1 Sec (23.4-35.0) 04/04/25 14:51
Magnesium 2.1 mg/dl (1.6-2.3) 04/08/25 03:03
Triglycerides 115 mg/dl (10-149) 04/07/25 03:10
Physical Exam
Constitutional: No acute distress
Cardiovascular: Rhythm/rate is irregular and Other (anasarca)
Respiratory: Respiratory effort normal, Lungs clear to auscul., Wheeze Absent and Crackles Absent
Neuro/Psych: AO x 3
Data Reviewed
-
Date of Service: April 09, 2025
Medical Decision Making: Review of Case with other Provider (discussed with ICU nursing. consider po amiodarone tomorrow)
--- NOTE | 2025-04-09 09:22 | PTCARENOTE ---
Updated assessment, vital signs ongoing and as documented. Continue follow up with critical care team thru am rounds. Inside Finisher team, at bedside for morning update. Surgery, cardiology at bedside for am assessment and follow up plan of cares.
Presently clamp NGT eavaluate and follow as per surgery thru orders and 6 hour evaluation. TPN, insulin and amidarone as per protocol. Medications as per emar. Continue with teaching; afib, ostomy, incentive spirometer teaching continues. Supportive
cares and emotional support continue.
[2025-04-09 09:41] LABS: Glucose - Point of Care 96 mg/dl (70-99)
[2025-04-09 10:41] LABS: Glucose - Point of Care 107 mg/dl (70-99)
[2025-04-09 11:43] LABS: Glucose - Point of Care 132 mg/dl (70-99)
--- NOTE | 2025-04-09 11:46 | PTCARENOTE ---
Continue pain management, alternate relief measures and repositioning. Continue emotional support and supportive cares. Continue follow up glycemic protocol, management and accu data trends. Continue incentive spirometer while awake. Following ngt
as per orders remains clamped, no c/c (n,v,pain) will follow totals as per orders. Ongoing updates with automation clerk team.
[2025-04-09 12:40] LABS: Glucose - Point of Care 178 mg/dl (70-99)
[2025-04-09 14:42] LABS: Glucose - Point of Care 232 mg/dl (70-99)
--- NOTE | 2025-04-09 14:48 | W.PN.HOSP.TC ---
Today's Communication/Plan
-
Continue management in ICU.
Monitor platelet count.
HIT antibodies pending.
Assessment / Plan
Assessment / Plan
Impression:
Patient is a 74y F with PMH significant for A-Fib, CHF and anal cancer with recent recurrence who presented to on 03/28 for scheduled surgery for resection of recurrent malignancy. Patient underwent ureteroscopy with bilateral ureteral stents,
robotic APR, BIANKA / BSO, repair of vaginal defect and perineal reconstruction / flap on 03/28/25. She received 2 units PRBC and 1g TXA during the surgeries. Patient was successfully extubated post-op. She was on pressors post-op which were able to
be weaned, but have since been restarted at low dose to maintain adequate perfusion.
Medicine service was consulted for management of patient's multiple medical issues.
Patient Status post debridement on 04/03/2025 of flap to muscle. Pressure offloading per plastics surgery recs.
Worsening thrombocytopenia.
Heparin held, HIT antibody pending.
Assessment/plan:
Anal Cancer s/p Robotic APR, BIANKA/BSO, Repair of Vaginal Defect, Perineal Reconstruction / Flap
Concern for superficial necrosis of the flap
- Continue post-op care per surgical service(s). Pain control.
- Continue with NG tube. NGT clamping trial once with signs of ROBF.
- Pain control. OOB/activity per surgery post op.
- IV Ancef transition to Zosyn as below. Improvement in leukocytosis.
- Status post debridement on 04/03/2025 of flap to muscle. Pressure offloading per plastics surgery recs
- Patient now started on TPN.
Acute Blood Loss Anemia
Shock likely secondary to hemorrhagic and hypovolemia
Coagulopathy with thrombocytopenia
- Received 5 units PRBCs total thus far (and 1 g TXA) and 2units of FFP and 10mg of Vitamin K. Hemoglobin at 9
- Currently on low-dose phenylephrine for BP support - wean as able. Midodrine started
- IV ppi. IVF has been stopped.
- Follow H&H and transfuse additional blood products if needed. If persistent downtrend of hemoglobin may need to consider CT abdomen pelvis
- If persistent downtrend in platelets noted check fibrinogen, D-dimer. Low likelihood of DIC.
04/07
HIT at antibodies pending.
04/08
Worsening thrombocytopenia.
04/09
Thrombocytopenia slightly improved.
HIT antibodies still pending.
Leukocytosis
- Likely multifactorial due to reactive versus UTI versus pneumonia
- Ancef switched to Zosyn. Leukocytosis downtrending. up today but overall trending down.
04/08
Improved leukocytosis
Vasovagal episode on 04/04/2025
- Likely multifactorial in the setting of shock, atrial fibrillation, hypovolemia, fluid shift
- Blood pressure stabilized to some extent. Remains on pressors.
Persistent Atrial Fibrillation
- now in RVR. IV amiodarone started.
- Lopressor IV at low dose with holding parameters for BP.
- Eliquis on hold for surgery, blood loss, etc.
- Cardiology following
Anasarca likely secondary to iatrogenic fluid administration PRBC, FFP, IV fluids etc
- RUE venous doppler pending
- Patient has gained significant weight since admission
- Currently on 40 mg of IV Lasix. Monitor urinary output. May require additional diuresis however limiting factor due to hypotension
Transaminitis likely secondary to shock
- LFTs are improving.
Hypothermia
- Mild hypothermia post-op. Likely combination of anesthesia, blood loss, etc.
- resolved
Acute hypoxic respiratory insufficiency
- Wean O2 as tolerated.
Chronic HFpEF
- Hypotensive at present as noted above.
- Continue to follow accurate I/Os, daily weights, etc.
-
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
- Now started on IV insulin infusion per critical care glycemic protocol
- A1C was 5.7 on 03/26/25.
CKD III
- Stable. SCr is actually improved from prior baseline (1.3 compared to 1.6).
- Monitor urinary output.
Hypothyroidism
- TFTs normal in February of this year.
- Repeat TFTs given hypothermia- TSH wnl.
- Started on IV levothyroid
Hypocalcemia
Hypomagnesemia
Hypophosphatemia
Hypokalemia
-Replete and monitor
Mild hypernatremia
- Monitor for now. Improved
CODE STATUS: Full code
DVT prophylaxis: Heparin on hold for thrombocytopenia
Diet: TPN.
Total time spent on today's encounter was 74 minutes which included time spent in counseling the patient/family regarding diagnosis and treatment plan as listed above, goals of care, and symptom management. Case was discussed with nursing staff,
specialists, and care coordinators/case management. All labs and imaging personally reviewed by me. Remainder the time spent in detailed review of previous records, lab data, imaging, and other medical provider documentation.
Anticipated Discharge: > 48 hours
Subjective/Interval History
-
Date of Service: April 09, 2025
Patient remains in the ICU, platelets slightly improved
Objective Data
-
Labs:
Laboratory Results
04/09/25 04/09/25
03:30 05:10
WBC 15.2 H
Hgb 8.6 L
Hct 28.4 L
Plt Count 43 L
Sodium 147 H
Potassium 4.2
Chloride 118 H
Carbon Dioxide 24
BUN 54 H
Creatinine 1.4 H
Glucose 193 H
Calcium 7.7 L
Total Bilirubin 1.6 H
AST 44 H
ALT 52 H
Alkaline Phosphatase 74
Vital Signs:
Vital Signs
Temp Pulse Resp BP Pulse Ox
97.5 F 116 16 80/62 97
04/09/25 11:00 04/09/25 14:30 04/09/25 14:30 04/09/25 14:00 04/09/25 14:30
I&O
04/08/25 04/09/25 04/10/25
06:59 06:59 06:59
Intake Total 2775.1 / 2924.3 2717.3 / 2794.5 740.3 / 740.3
Output Total 2648 / 2648 2265 / 2265 550 / 550
Balance 127.1 / 276.3 452.3 / 529.5 190.3 / 190.3
Physical Exam
-
General: Well Developed, Well Nourished and Obese
HEENT: Normocephalic, Atraumatic and Other (NG tube)
Respiratory: Rales and Non Labored Respirations
Cardiac: S1/S2 and Irregular Rhythm
Breast: Deferred by me
GI: Tender and Other (Drain at surgical site)
Genito-urinary: No Costovertebral Tender
Musculoskeletal: No Clubbing and No Cyanosis
Skin: Warm
Neuro: Awake, Alert, Oriented and AO x 3
Psych: Calm
[2025-04-09 15:46] LABS: Glucose - Point of Care 239 mg/dl (70-99)
[2025-04-09] MEDS: LEVOTHROID 115 MCG IV (17:36)
[2025-04-09] MEDS: CORDARONE 518 MG IV (17:37)
[2025-04-09 17:59] LABS: Glucose - Point of Care 162 mg/dl (70-99)
--- NOTE | 2025-04-09 19:22 | PTCARENOTE ---
Assessment unchanged thru day. Maintain ngt secondary to nausea and drainage totals. 200ml green bile. Patient reports being nervous when time to dc. Updated accu data trends and glycemic trends as per protocol. Skin cares and drain management thru
day. Continue supportive cares and emotional support. Medications with follow up via emar and with pharmacy. No family present today. Nursing at bedside with support thru day.
[2025-04-09] MEDS: Parenteral Nutrition, Central 1320 IV (20:13)
[2025-04-09 20:23] LABS: Glucose - Point of Care 152 mg/dl (70-99)
--- NOTE | 2025-04-09 21:25 | PTCARENOTE ---
Received pt from previous RN. Pt is AAOx3, flat, drowsy. Afib on the monitor. Pt on 1L NC O2 sat 100%, lungs diminished. Colostomy and 3 JPs intact. Right nare ngt to low intermittent suction. Rogers in place. SCDs in place. Amio, insulin and tpn
maintained. Call chaves in reach. Safe environment maintained.
[2025-04-09 21:59] LABS: Glucose - Point of Care 152 mg/dl (70-99)
[2025-04-09 23:58] LABS: Glucose - Point of Care 174 mg/dl (70-99)
[2025-04-10] VITALS (28 sets, daily range): BP systolic 87–122; BP diastolic 37–81; PULSE 121–156; O2SAT 94; BMI 40.9
[2025-04-10] MEDS: OFIRMEV 100 IV ×2 (00:22→23:37)
--- NOTE | 2025-04-10 00:26 | PTCARENOTE ---
Systems reviewed, no new changes in assessment. Pt c/o 10 butt pain, PRN Ofirmev given (see MAR). Pt frequently repositioned in bed. Call chaves in reach. Safe environment maintained.
[2025-04-10 01:58] LABS: Glucose - Point of Care 169 mg/dl (70-99)
--- NOTE | 2025-04-10 04:01 | PTCARENOTE ---
Systems reviewed, no new changes in assessment. AM labs provided. Gtts maintained. Safe environment maintained.
[2025-04-10 04:06] LABS: Glucose - Point of Care 155 mg/dl (70-99)
[2025-04-10 04:16] LABS: Hematocrit 28.3 % (37.0-47.0); Hemoglobin 8.6 g/dL (12.0-16.0); Mean Corp Hgb Conc. 30.4 g/dL (33.0-37.0); Mean Corpuscular Volume 99.3 fL (81.0-99.0); Platelet Count 47 10^3/uL (130-400); Red Cell Dist. Width 20.5 % (11.5-14.5)
[2025-04-10 04:29] LABS: Blood Urea Nitrogen 62 mg/dl (7-17); Calcium 8.1 mg/dl (8.4-10.2); Carbon Dioxide 26 mmol/L (22-30); Chloride 117 mmol/L (98-107); Estimated Creatinine Clearance 37 ml/min; Glucose 149 mg/dl (70-99); Potassium 4.0 mmol/L (3.5-5.1); Sodium 147 mmol/L (135-145); eGFR 39.23
[2025-04-10] MEDS: ZOSYN 50 IV ×4 (05:54→23:39)
[2025-04-10 06:09] LABS: Glucose - Point of Care 129 mg/dl (70-99)
--- NOTE | 2025-04-10 07:37 | W.PN.INTV ---
Today's Communication / Plan
Recommendations
Pressors weaned
Continue TPN and insulin drip
Activity per surgery-colorectal and plastics
Gentle diuresis
Assessment
-
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
status post robotic abdominoperineal resection, BIANKA/BSO, VRAM flap perineal reconstruction, 03/28. Patient admitted to ICU postoperatively given significant blood loss, hypotension requiring pressors
Shock, hemorrhagic related to blood loss and likely post-op vasoplegia
Coagulopathy, suspect transfusion related. RUE negative for DVT
S/p robotic abdominoperineal resection, BIANKA/BSO, repair of vaginal defect, VRAM flap perineal reconstruction, 03/28/25
Concern for superficial necrosis of flap, s/p excisional debridement to muscle 10 x 30 cm with adjacent tissue transfer/ 04/03
OSMANY
Leukocytosis
Thrombocytopenia
Hyperkalemia
Hyperglycemia
Kleb UTI
Conditions present prior to admission
History of CKD stage IIIb
Diabetes
Anal squamous cell cancer, stage III
Diagnosed November 2023
s/p chemotherapy/radiation at [facility]
Recurrence of disease per pelvic MRI January 2025
Follows oncology ([facility])
Atrial fibrillation on Eliquis
Now off amiodarone Per cardiology, remains on beta-joseph (Shadi)
Moderate pulm hypertension, echo March 2025, stable compared to prior echo
With dilated RV, normal function, PA pressure 66
Normal EF
Moderate mitral stenosis
History of stroke 1994 and again 2022 per patient
Suspected sleep apnea
Hypothyroidism
Plan:
Respiratory status relatively stable
Continue supplemental oxygen-currently on 1 L
Refusing BiPAP-likely has obstructive sleep apnea
Aspiration precautions
Nebulizers if needed-currently not bronchospastic
Pressors as needed--Adam weaned off
Continue midodrine
Monitor lactate if needed
Follow hemoglobin and platelet count
Transfuse as needed
HIT pending-low suspicion-low 4 T-score
Cardiology following-correspondence reviewed-Dr. Scott reviewed with Dr. Alvarado on 04/08/2025
Amiodarone continues
Begin IV diuresis
Monitor renal function, electrolytes, intake/output, lower extremity edema and weight
Replace electrolytes as needed
Echocardiogram 04/08/2025-EF 60-65%, moderate to severe tricuspid regurgitation, PA systolic 85
Atrial fibrillation rate control
Chronic heart failure preserved EF noted
Currently n.p.o., NG tube in place-clamped 04/09/2025
S/p robotic abdominoperineal resection, BIANKA/BSO, repair of vaginal defect, VRAM flap perineal reconstruction, 03/28/25
Complicated by blood loss, 1 L per OR records. TXA given intra-operatively
Colorectal surgery following-correspondence reviewed-Dr. Scott reviewed with colorectal surgery
TPN per surgery continues
Diet advancement per team
Insulin drip continues per diabetic nurse practitioner management
Cultures reviewed
Empiric antibiotics continues
Monitor leukocytosis and temperature curve
Concern for superficial necrosis of flap, 04/03/25
Patient returned to OR for excisional debridement - followed by plastics
Monitor blood sugars closely
Insulin drip continues
Diabetic nurse practitioner following-correspondence reviewed-continue insulin infusion while on TPN
DVT prophylaxis--heparin held due to thrombocytopenia
GI prophylaxis-on Protonix
Nutrition per surgery
Bedside range of motion/eventual physical and Occupational Therapy
Eventual outpatient pulmonary/sleep disorders follow-up
Critical care statement: A total of 40 minutes of critical care time was provided for this patient today. This includes management of unstable vital signs, evaluation of the patient at bedside, reviewing the patient�s pertinent medical records
including radiographs, pressor management, microbiology, laboratory evaluations, and��discussion with primary team, consultants, pharmacy, nutrition, physical therapy, case management, charge nurse, critical care nursing, and respiratory therapy.
Data:
CXR 04/02/25- Low lung volumes with patchy bibasilar opacities, likely atelectasis and/or small effusion. No significant effusions or pneumothorax appreciated.
03/28/25- Nasogastric tube is present with tip near the gastroesophageal junction and distal sidehole in the distal esophagus. Consideration for advancement of this tube. Interstitial edema. Linear atelectasis in the right midlung. Mild to moderate
elevation of the left hemidiaphragm, new since previous radiograph. Probable small bilateral pleural effusions.
CT CAP 02/21/25- Circumferential anal wall thickening consistent with known malignancy versus posttreatment change. Probably stable. No evidence of metastatic disease. However, extremely limited exam without IV contrast. Tiny pericardial effusion.
Stable. Progressed small right and new tiny left pleural effusions. Findings suggesting moderate bilateral lower lobe and mild upper lobe pneumonia. New. Mild mediastinal lymphadenopathy. Probably reactive. Stable. Gallstones. Stable. Mild diffuse
bladder wall thickening. This can be seen with cystitis or bladder outlet obstruction. Improved.
Findings suggesting bilateral lower third spacing. Progressed
Echo 03/25/2025: Normal biventricular function with mildly dilated RV, moderate mitral stenosis, severe TR, PA pressure 66
Subjective Dataa
Subjective Data
Date of Service:
Date of Service: April 10, 2025
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
Subjective:
Easily arousable, no complaints of shortness of breath, chest pain, and has some buttocks pain that is controlled
Review of Systems
General: Other (Per HPI)
Objective Data
Data Reviewed
Vital Signs / I&O / Oxygen:
Vital Signs
Temp Pulse Resp BP Pulse Ox
97.8 F 106 22 93/76 100
04/10/25 03:30 04/10/25 06:00 04/10/25 06:00 04/10/25 06:00 04/10/25 06:00
Intake and Output
04/09/25 04/10/25 04/11/25
06:59 06:59 06:59
Intake Total 2717.3 / 2794.5 2297.5 / 2297.5
Output Total 2265 / 2265 2765 / 2765
Balance 452.3 / 529.5 -467.5 / -467.5
SaO2 100
Nasal Cannula flow liters per 1
minute
Physical Exam
General: Respiratory Distress (n), Comfortable, Poor Appetite and Other (NAD)
HEENT: Normocephalic, Anicteric and Moist Mucous Membranes
Cardiovascular: Regular Rhythm, Murmur (n) and Rub (n)
Respiratory: Rhonchi (n) and Non-Labored Respirations
GI: Soft, Non Distended, Non Tender, NG Tube (Ostomy with minimal stool and gas output, PRETTY drains yellow serosanginous fluid) and Other (abdominal incisions are noted)
Neurology: Awake, Alert and No Motor Deficits (Generally weak)
Skin: Warm, Good Color (Mild pallor), Cyanosis (n), Jaundice (n) and Rash (n)
Labs/Micro/Reports
Lab Data
04/10/25 03:51
04/10/25 03:51
--- NOTE | 2025-04-10 07:56 | W.PN.CD ---
Today's Communication / Plan
-
Cont IV amio HRs tolerable; awaiting ability to tolerate PO
Had decent urine output if BP stable can start IV diuresis either this afternoon/tomorrow
Impression / Plan
-
Anal cancer:
- s/p robotic abdominoperineal resection, repair of vaginal defect, robotic total laparoscopic hysterectomy, bilateral salpingo-oophorectomy, vertical rectus abdominis myocutaneous flap reconstruction of the perineum, cystoscopy and bilateral
ureteral stent insertion (03/28/25)
- post-op course complicated by hypotension requiring blood products, fluid, vasopressors (suspected hemorrhagic shock- diagnosis is threat to life)
- S/p hemophagic shock, s/p 5 U PRBC (4 on 03/28/2025 and 1 on 03/31/2025)
Persistent AFib
- Mildly elevated rates. Appropriate for current clinical circumstance. Using iv amio b/c of BP and GI status
- awaitng able to tolerate PO to stop IV amio and start PO
- Resume Eliquis when appropriate
Chronic HFpEF:
- Seems comfortable
- From her critical illness and support her weight is way up from baseline 86.3 kg. Now at 98 kg. Patient with upper and lower extremity edema but still with low blood pressures which are limiting diuretic use
- Had one dose of Lasix 04/04/2025
- Hold on diuresis, tolerated the volume and BP still soft, low O2 needs at this time. Will need fluid mobilization at some point if she does not diurese on her own; possibly tomorrow if BP remains stable
.
Hypotension. Blood pressures have started to improve. She has had asymptomatic systolic blood pressures in the 80s current blood pressure 95/78. Continue to monitor closely. Some challenges in obtaining blood pressure is not using right arm.
Only using left wrist at this point. Continue to monitor pressures closely. repeat echo with normal left ventricular function
Pacemaker followed in our office
Subjective: denies CP or dyspnea
Data:
Echo 03/25/25: LVEF 55-60%. Mod MS, mean 5 mmHg. Mod-severe TR, est PASP 66 mmHg, est RA 8 mmHg. Stable from 02/15/2024
Echo 04/08/2025: LVEF 60-65%, dilate RV and reduced EF, PASP 85mmHg
Physical Exam
Vital Signs/Labs
Vital Signs
Temp Pulse Resp BP Pulse Ox
97.8 F 106 22 93/76 100
04/10/25 03:30 04/10/25 06:00 04/10/25 06:00 04/10/25 06:00 04/10/25 06:00
04/09/25 04/10/25 04/11/25
06:59 06:59 06:59
Actual Weight 216 lb 9.6 oz 216 lb 9.6 oz
04/10/25 03:51
04/10/25 03:51
PT 21.5 Sec (11.4-14.6) H 04/04/25 14:51
INR 1.85 04/04/25 14:51
APTT 32.1 Sec (23.4-35.0) 04/04/25 14:51
Magnesium 2.1 mg/dl (1.6-2.3) 04/08/25 03:03
Triglycerides 115 mg/dl (10-149) 04/07/25 03:10
Physical Exam
Constitutional: No acute distress
EENT: Anicteric
Cardiovascular: Rhythm/rate is irregular and Pedal edema present
Respiratory: Respiratory effort normal and Lungs clear to auscul.
GI: Soft
Neuro/Psych: Alert and Oriented
Data Reviewed
-
Date of Service: April 10, 2025
Medical Decision Making: Reviewed Test Results
EKG: Tracing Personally Visualized and interpreted (af)
Echo: Report Reviewed by me
Labs: Labs Reviewed by me
--- NOTE | 2025-04-10 07:57 | PN.DE.MGMTRT ---
Insulin Management
- -
04/10/2025 Diabetes Management Consult Follow up
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 PMH anal sq. cell CA, pacemaker, diabetes, hypothyroid, obesity, a fib, HTN, ASCVD/CVA, HCL. Prior to admission was taking Tresiba 8 units @ HS with
glyburide 2.5 mg daily. A1C 5.7%, cr 1.4, eGFR 39.23.
Patient is awake and alert able to discuss diabetes care, states she has had diabetes 20 years, has glucose monitor. States she only took the glipizide if her glucose was > 135.
Patient currently receiving TPN, and is on the critical care glycemic protocol. Glucose range 162 to 239, receiving 1.5 to 3 units of insulin per hour. Yesterday Insulin infusion off from 8am to 12pm, restarted @ 1pm for glucose 232, remained on
overnight requiring 2 to 3.5 units per hour.
Will continue insulin infusion while on TPN.
Discussed with nurse.
Will follow.
Diabetes History
- -
Type of Diabetes: 2 requiring insulin
Pre-Admission Diabetes Regimen
04/10/25
03:51
Creatinine 1.4 H
Lab Results
Hemoglobin A1c 5.7 % (4.0-5.6) H 03/26/25 10:51
Insulin Pump Settings
IP Diabetes Regimen
04/09/25 04/09/25 04/09/25
08:30 09:30 10:29
Glucose
POC Glucose 99 96 107 H
04/09/25 04/09/25 04/09/25
11:31 12:29 14:30
Glucose
POC Glucose 132 H 178 H 232 H
04/09/25 04/09/25 04/09/25
15:35 17:48 20:11
Glucose
POC Glucose 239 H 162 H 152 H
0904/09/25 04/10/25
21:47 23:46 01:45
Glucose
POC Glucose 152 H 174 H 169 H
04/10/25 04/10/25 04/10/25
03:51 03:54 05:56
Glucose 149 H
POC Glucose 155 H 129 H
Meal type: Lunch
Meal type: Breakfast
Patient Education
[2025-04-10 08:17] LABS: Glucose - Point of Care 131 mg/dl (70-99)
--- NOTE | 2025-04-10 08:19 | W.PN.INTV ---
Documented by User: Anne Ventura MD, Resident 04/10/25 10:27
Today's Communication / Plan
Recommendations
plan reviewed with attending
Assessment
-
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
status post robotic abdominoperineal resection, BIANKA/BSO, VRAM flap perineal reconstruction, 03/28. Patient admitted to ICU postoperatively given significant blood loss, hypotension requiring pressors.
Shock, hemorrhagic related to blood loss and likely post-op vasoplegia
Coagulopathy, suspect transfusion related. RUE negative for DVT
S/p robotic abdominoperineal resection, BIANKA/BSO, repair of vaginal defect, VRAM flap perineal reconstruction, 03/28/25
Concern for superficial necrosis of flap, s/p excisional debridement to muscle 10 x 30 cm with adjacent tissue transfer/ 04/03
OSMANY
Leukocytosis
Thrombocytopenia
Hyperkalemia
Hyperglycemia
Kleb UTI
Conditions present prior to admission
History of CKD stage IIIb
Diabetes
Anal squamous cell cancer, stage III
Diagnosed November 2023
s/p chemotherapy/radiation at [place]
Recurrence of disease per pelvic MRI January 2025
Follows oncology ([facility])
Atrial fibrillation on Eliquis
Now off amiodarone Per cardiology, remains on beta-joseph (Shadi)
Moderate pulm hypertension, echo March 2025, stable compared to prior echo
With dilated RV, normal function, PA pressure 66
Normal EF
Moderate mitral stenosis
History of stroke 1994 and again 2022 per patient
Suspected sleep apnea
Hypothyroidism
Plan:
Neuro:
Extubated and weaned off sedation
Pain control
Rass goal 0
Pain control: ofrimev. PRN dilaudid
Cardio:
Shock, hemorrhagic related to blood loss and likely post-op vasoplegia. Off pressors on midodrine 10mg
Suspect RVR with A fib also contributing to hypotension and difficulty weaning of Levophed.
Eliquis on hold in view of bleeding.
Amiodarone bolus and infusion started 04/02, Cardiology consult, tachycardia better controlled. Amiodarone drip continued.
Chronic HFpEF - f/u CXR stable
Continue telemetry monitoring
Echo 04/08 demonstrated PASP 85 prior 66
Pulm:
Remains on low supplemental o2, wean to off. Currently 1L
Chest x-ray without acute findings. Concern for LLL pneumonia stable on CXR. Repeat CXR if change in clinical symptoms. On broad spectrum abx for UTI.
Encourage out of bed, I-S
Aspiration precautions
BIPAP overnight
GI:
Currently n.p.o., NG tube in place. Clamp trial per surgeon. Increased ostomy output encouraging for NG removal today.
S/p robotic abdominoperineal resection, BIANKA/BSO, repair of vaginal defect, VRAM flap perineal reconstruction, 03/28/25
Continues TPN, pending NG clamp trial.
Colorectal following
PRETTY drains output serous stable.
ID:
Was on ancef for kleb UTI. Increased WBC and broadened abx--still on zosyn
WBC stable. Continue zosyn.
Patient returned to OR for excisional debridement - followed by plastics. Flap evaluated by surgeons today
Heme:
Coagulopathy, suspect transfusion related
INR noted to be elevated, gave vitamin K 10 mg IV 03/31. Fresh frozen plasma, 2 units, IV calcium given for hypocalcemia 03/31
If additional blood transfusion needed will give FFP and platelets along with PRBC
Follow CBC. Hgb and plts stable.
HIT panel pending.
:
Mild OSMANY - Decreased urine out put, dry mouth, also hypotensive, suspect intra-vascular hypovolemia
s/p > 2 ltr LR and Albumin 8/31
Follow creat, IOs
Replete electrolytes as needed
Mg Phos pending
Endocrine:
Insulin protocol started due to hyperglycemia with tpn
accu checks q1
Pending NG/TPN status, we will reassess glycemic protocols once PO diet resumes
DVT prophylaxis: Heparin held-HIT panel pending. SCDs in place. Plts 43
GI prophylaxis: Protonix
Data:
CXR 04/02/25- Low lung volumes with patchy bibasilar opacities, likely atelectasis and/or small effusion. No significant effusions or pneumothorax appreciated.
03/28/25- Nasogastric tube is present with tip near the gastroesophageal junction and distal sidehole in the distal esophagus. Consideration for advancement of this tube. Interstitial edema. Linear atelectasis in the right midlung. Mild to moderate
elevation of the left hemidiaphragm, new since previous radiograph. Probable small bilateral pleural effusions.
CT CAP 02/21/25- Circumferential anal wall thickening consistent with known malignancy versus posttreatment change. Probably stable. No evidence of metastatic disease. However, extremely limited exam without IV contrast. Tiny pericardial effusion.
Stable. Progressed small right and new tiny left pleural effusions. Findings suggesting moderate bilateral lower lobe and mild upper lobe pneumonia. New. Mild mediastinal lymphadenopathy. Probably reactive. Stable. Gallstones. Stable. Mild diffuse
bladder wall thickening. This can be seen with cystitis or bladder outlet obstruction. Improved.
Findings suggesting bilateral lower third spacing. Progressed
Echo 03/25/2025: Normal biventricular function with mildly dilated RV, moderate mitral stenosis, severe TR, PA pressure 66
Subjective Dataa
Subjective Data
Date of Service:
Date of Service: April 10, 2025
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
Subjective:
Pt reports feeling better than yesterday with pain control managed. She reports increasing appetite and desire to consume PO.
Objective Data
Data Reviewed
Vital Signs / I&O / Oxygen:
Vital Signs
Temp Pulse Resp BP Pulse Ox
98.0 F 110 17 97/50 100
04/10/25 07:45 04/10/25 07:00 04/10/25 07:00 04/10/25 07:00 04/10/25 07:00
Intake and Output
04/09/25 04/10/25 04/11/25
06:59 06:59 06:59
Intake Total 2717.3 / 2794.5 2297.5 / 2370.7 73.2 / 73.2
Output Total 2265 / 2265 2765 / 2765
Balance 452.3 / 529.5 -467.5 / -394.3 73.2 / 73.2
SaO2 100
Nasal Cannula flow liters per 1
minute
Physical Exam
General: Comfortable and Other (NAD)
HEENT: Normocephalic, Anicteric and Moist Mucous Membranes
Cardiovascular: Regular Rhythm
Respiratory: Clear, Rhonchi (n) and Non-Labored Respirations
GI: Soft, Non Distended, Non Tender, NG Tube (Ostomy with increased stool output, PRETTY drains yellow serous fluid) and Other (abdominal incisions are noted)
Neurology: Awake, Alert, Oriented and No Motor Deficits (Generally weak)
Skin: Warm, Good Color (Mild pallor), Cyanosis (n), Jaundice (n) and Rash (n)
Labs/Micro/Reports
Lab Data
04/10/25 03:51
04/10/25 03:51

Documented by User: Mayank Soctt MD 04/10/25 11:21
Today's Communication / Plan
Recommendations
plan reviewed with attending
I reviewed this patient's case independently and in conjunction with the resident. I personally performed the daley components of the evaluation and management of this critically ill patient, including the history, physical exam, and medical
decision-making. I was present during the daley portions of care, reviewed the resident's documentation, and participated in the ongoing management of this patient requiring critical care. I confirm the medical necessity of these services. I agree
with documented assessment and plan
Mayank Scott MD, FCCP, [facility]
[2025-04-10] MEDS: NOVOLOG FLEXPEN SC ×3 (08:33→16:01)
[2025-04-10] MEDS: DILAUDID 0.25 MG IV (08:33)
[2025-04-10] MEDS: NSS (PRESERVATIVE FREE) 10 ML IV (08:34)
[2025-04-10] MEDS: PROTONIX IV 40 MG IV (08:34)
[2025-04-10] MEDS: DESENEX/MITRAZOL/ZEASORB 1 APPLIC TOPICAL ×2 (08:34→19:51)
--- NOTE | 2025-04-10 09:23 | PTCARENOTE ---
Rec'd care of patient at 0700. Patient drowsy; arousable to verbal stimuli. Oriented x3. MAEx4. Afib on tele. Amio gtt infusing through right SQ port. Weaned to RA. Pulse ox 95%. Abdomen round/soft/tender. Hypo BS. Colostomy with stool output. NGT
clamped by colorectal surgery for clamping trial. Midline incision and flap dressings c/d/i. PRETTY x3. Rogers in place for critical I/O. TPN and insulin infusing through LDL PICC. GP maintained. See worklist for full assessment and care.
[2025-04-10 10:09] LABS: Glucose - Point of Care 140 mg/dl (70-99)
--- NOTE | 2025-04-10 11:50 | PTCARENOTE ---
Systems reviewed. No major changes in assessment. Patient c/o discomfort at flap site. Repositioned for comfort. Lateral rotation mattress maintained. VSS.
--- NOTE | 2025-04-10 12:20 | W.PN.CRS1 ---
Today's Communication / Plan
-
tpn
ngt clamping trial
await HIT panel
Assessment/Plan
-
74 yo female with PMH of A-fib, HFpEF, RCC, HTN, HLD, DM, hypothyroidism, CVA, LIZETT and anal cancer s/p adjunctive chemo complicated by recurrence, presented for elective surgery
POD #12 RAL APR (CRS), vaginal defect repair with BIANKA/BSO ([employer]) and VRAM flap (Plastics)
POD #6 Excisional Debridement of perineal flap
Afebrile, HR 110s�120s, NGT: 150ml
WBC 14.0 (12.0) Platelets 47 (43)
-H/H stable s/p 2 units FFP and 5 units PRBC's total this admit, last transfusion was on 03/31
�NGT clamping trial today - if out then NPO
�Continue TPN
�Continue Zosyn
�Maintain MAP greater than 65
�Recommend workup for thrombocytopenia; will defer to primary; hold DVT PPx. HIT panel pending.
�Strict intake/output
�c/w PRETTY drains, follow outputs
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
�Encourage IS while awake
�Pain control with Tylenol and Dilaudid as needed
�Appreciate hospitalist and womens health nurse practitioner
-OOB as tolerated with PT (we have no restrictions, up to Dr. Son regarding her myocutaneous flap reconstruction
Subjective Data
Procedure
03/28/2025- RAL APR (CRS), vaginal defect repair with BIANKA/BSO ([employer]) and VRAM flap (Plastics)
Subjective Data
Date of Service: April 10, 2025
Patient states she feels 'okay'. She has no complaints. Denies nausea or vomiting. Her stoma now has function and she hears flatus.
Objective Data
-
Vital Signs
Temp Pulse Resp BP Pulse Ox
98.1 F 115 18 96/74 94
04/10/25 11:43 04/10/25 12:00 04/10/25 12:00 04/10/25 12:00 04/10/25 12:00
Intake & Output
04/09/25 04/10/25 04/11/25
06:59 06:59 06:59
Intake Total 2717.3 / 2794.5 2297.5 / 2370.7 439.2 / 439.2
Output Total 2265 / 2265 2765 / 2865 725 / 725
Balance 452.3 / 529.5 -467.5 / -494.3 -285.8 / -285.8
Intake:
IV fluids (Total) 922.3 / 943.5 457.5 / 475.7 109.2 / 109.2
Amiodarone. 400.8 / 417.5 417.5 / 434.2 100.2 / 100.2
Insulin 56.5 / 61.0 40.0 / 41.5 9.0 / 9.0
KCL 270.0 / 270.0
Neosyneprhrine 195 / 195
IV piggybacks 260 / 260 350 / 350
TPN/PPN 1330 / 1386 1400 / 1455 330 / 330
Amount instilled into GI Tube ( / 90 /
Total)
Welch Sump / 205 /
Output:
Drain Output (Total) 940 / 940 655 / 655 200 / 200
Left Lower Abdomen Pierce- 498 / 498 245 / 245 105 / 105
Hoover
Right Lower Abdomen Pierce- 379 / 379 235 / 235 45 / 45
Hoover B
Sacrum Pierce-Hoover C 63 / 63 175 / 175 50 / 50
Gastrointestinal tube output ( 150 / 150 500 / 500
Total)
Welch Sump 150 / 150 500 / 500
Urine, Rogers 1175 / 1175 1610 / 1710 525 / 525
Lab Results
04/10/25 03:51
04/10/25 03:51
Physical Exam
-
General: No Acute Distress and AOx3
Abdomen: Soft, Non Distended, Non Tender and Other (colostomy warm and pink with stool and flatus in bag)
Wound: Dressing Changed and Dressing in Place
[2025-04-10 12:33] LABS: Glucose - Point of Care 151 mg/dl (70-99)
--- NOTE | 2025-04-10 13:25 | W.PN.HOSP.TC ---
Today's Communication/Plan
-
Continue management in ICU.
Platelet improving.
Start heparin subcu once platelet above 50 if HIT negative.
Assessment / Plan
Assessment / Plan
Impression:
Patient is a 74y F with PMH significant for A-Fib, CHF and anal cancer with recent recurrence who presented to on 03/28 for scheduled surgery for resection of recurrent malignancy. Patient underwent ureteroscopy with bilateral ureteral stents,
robotic APR, BIANKA / BSO, repair of vaginal defect and perineal reconstruction / flap on 03/28/25. She received 2 units PRBC and 1g TXA during the surgeries. Patient was successfully extubated post-op. She was on pressors post-op which were able to
be weaned, but have since been restarted at low dose to maintain adequate perfusion.
Medicine service was consulted for management of patient's multiple medical issues.
Patient Status post debridement on 04/03/2025 of flap to muscle. Pressure offloading per plastics surgery recs.
Worsening thrombocytopenia.
Heparin held, HIT antibody pending.
Assessment/plan:
Anal Cancer s/p Robotic APR, BIANKA/BSO, Repair of Vaginal Defect, Perineal Reconstruction / Flap
Concern for superficial necrosis of the flap
- Continue post-op care per surgical service(s). Pain control.
- Continue with NG tube. NGT clamping trial once with signs of ROBF.
- Pain control. OOB/activity per surgery post op.
- IV Ancef transition to Zosyn as below. Improvement in leukocytosis.
- Status post debridement on 04/03/2025 of flap to muscle. Pressure offloading per plastics surgery recs
- Patient now started on TPN.
04/10
Patient had BM.
Consider start trial of oral feeding if okay with surgery team
Acute Blood Loss Anemia
Shock likely secondary to hemorrhagic and hypovolemia
Coagulopathy with thrombocytopenia
- Received 5 units PRBCs total thus far (and 1 g TXA) and 2units of FFP and 10mg of Vitamin K. Hemoglobin at 9
- Currently on low-dose phenylephrine for BP support - wean as able. Midodrine started
- IV ppi. IVF has been stopped.
- Follow H&H and transfuse additional blood products if needed. If persistent downtrend of hemoglobin may need to consider CT abdomen pelvis
- If persistent downtrend in platelets noted check fibrinogen, D-dimer. Low likelihood of DIC.
04/07
HIT at antibodies pending.
04/08
Worsening thrombocytopenia.
04/09
Thrombocytopenia slightly improved.
HIT antibodies still pending.
04/10
Platelet improving
Leukocytosis
- Likely multifactorial due to reactive versus UTI versus pneumonia
- Ancef switched to Zosyn. Leukocytosis downtrending. up today but overall trending down.
04/08
Improved leukocytosis
Vasovagal episode on 04/04/2025
- Likely multifactorial in the setting of shock, atrial fibrillation, hypovolemia, fluid shift
- Blood pressure stabilized to some extent. Remains on pressors.
Persistent Atrial Fibrillation
- now in RVR. IV amiodarone started.
- Lopressor IV at low dose with holding parameters for BP.
- Eliquis on hold for surgery, blood loss, etc.
- Cardiology following
Anasarca likely secondary to iatrogenic fluid administration PRBC, FFP, IV fluids etc
- RUE venous doppler pending
- Patient has gained significant weight since admission
- Currently on 40 mg of IV Lasix. Monitor urinary output. May require additional diuresis however limiting factor due to hypotension
Transaminitis likely secondary to shock
- LFTs are improving.
Hypothermia
- Mild hypothermia post-op. Likely combination of anesthesia, blood loss, etc.
- resolved
Acute hypoxic respiratory insufficiency
- Wean O2 as tolerated.
Chronic HFpEF
- Hypotensive at present as noted above.
- Continue to follow accurate I/Os, daily weights, etc.
-
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
- Now started on IV insulin infusion per critical care glycemic protocol
- A1C was 5.7 on 03/26/25.
CKD III
- Stable. SCr is actually improved from prior baseline (1.3 compared to 1.6).
- Monitor urinary output.
Hypothyroidism
- TFTs normal in February of this year.
- Repeat TFTs given hypothermia- TSH wnl.
- Started on IV levothyroid
Hypocalcemia
Hypomagnesemia
Hypophosphatemia
Hypokalemia
-Replete and monitor
Mild hypernatremia
- Monitor for now. Improved
CODE STATUS: Full code
DVT prophylaxis: Heparin on hold for thrombocytopenia
Diet: TPN.
Total time spent on today's encounter was 74 minutes which included time spent in counseling the patient/family regarding diagnosis and treatment plan as listed above, goals of care, and symptom management. Case was discussed with nursing staff,
specialists, and care coordinators/case management. All labs and imaging personally reviewed by me. Remainder the time spent in detailed review of previous records, lab data, imaging, and other medical provider documentation.
Anticipated Discharge: > 48 hours
Subjective/Interval History
-
Date of Service: April 10, 2025
Overall improving, denies chest pain, or shortness of breath.
Objective Data
-
Labs:
Laboratory Results
04/10/25
03:51
WBC 14.0 H
Hgb 8.6 L
Hct 28.3 L
Plt Count 47 L
Sodium 147 H
Potassium 4.0
Chloride 117 H
Carbon Dioxide 26
BUN 62 H
Creatinine 1.4 H
Glucose 149 H
Calcium 8.1 L
Vital Signs:
Vital Signs
Temp Pulse Resp BP Pulse Ox
98.1 F 111 21 103/65 92
04/10/25 11:43 04/10/25 13:00 04/10/25 13:00 04/10/25 13:00 04/10/25 13:00
I&O
04/09/25 04/10/25 04/11/25
06:59 06:59 06:59
Intake Total 2717.3 / 2794.5 2297.5 / 2370.7 439.2 / 439.2
Output Total 2265 / 2265 2765 / 2865 725 / 725
Balance 452.3 / 529.5 -467.5 / -494.3 -285.8 / -285.8
Physical Exam
-
General: Well Developed, Well Nourished and Obese
HEENT: Normocephalic, Atraumatic and Other (NG tube)
Respiratory: Rales and Non Labored Respirations
Cardiac: S1/S2 and Irregular Rhythm
Breast: Deferred by me
GI: Tender and Other (Drain at surgical site)
Genito-urinary: No Costovertebral Tender
Musculoskeletal: No Clubbing and No Cyanosis
Skin: Warm
Neuro: Awake, Alert, Oriented and AO x 3
Psych: Calm
[2025-04-10] MEDS: DILAUDID 0.5 MG IV ×2 (13:38→21:08)
--- NOTE | 2025-04-10 14:09 | PTCARENOTE ---
Patient tolerating clamp trial. NGT clamped for 6 hours. No n/v. Denies abdominal pain. Residuals <250 mL; 30 mLs. Per MD order, ngt removed.
[2025-04-10 14:29] LABS: Glucose - Point of Care 171 mg/dl (70-99)
--- NOTE | 2025-04-10 15:35 | CM ---
TPN, NGT clamped 04/09/25, NPO, O2-1L wean, Midodrine, IV/Zosyn, Insulin gtt. Discharge POC: TBD with Medical progression. I
--- NOTE | 2025-04-10 15:39 | CM ---
TPN, NGT clamped 04/09/25, NPO, O2-1L wean, Midodrine, IV/Zosyn, Insulin gtt. Discharge POC: SNF. Referrals previously forwarded.
--- NOTE | 2025-04-10 15:47 | PTCARENOTE ---
Addendum entered by Indira Mott RN 04/10/25 16:14:
Patient weaned back to RA.
Original Note:
PT at bedside. Patient reported to have sat at side of bed for around 4 minutes. HR up to 130s; afib. BP soft. Pulse ox 85% on RA. Patient repositioned safely back in bed. 2L nc applied. Pulse ox up to 94%.
[2025-04-10 16:24] LABS: Glucose - Point of Care 139 mg/dl (70-99)
[2025-04-10] MEDS: LEVOTHROID 115 MCG IV (18:15)
[2025-04-10 18:21] LABS: Glucose - Point of Care 147 mg/dl (70-99)
[2025-04-10] MEDS: Parenteral Nutrition, Central 1320 IV (20:04)
[2025-04-10 20:05] LABS: Glucose - Point of Care 171 mg/dl (70-99)
--- NOTE | 2025-04-10 21:25 | PTCARENOTE ---
Received pt from previous RN. Pt is AAOx3, flat, anxious, drowsy at times. Afib on the monitor. On RA O2 sat 93%, pt O2 dropped to 87%, 2L placed on pt, lungs diminished. Colostomy and JPs intact. Rogers in place, hygiene provided. SCDs in place.
Amio, insulin and TPN maintained. Pt c/o 8/10 butt pain, turning provided, PRN Dilaudid given (see MAR). CHG bath and mouth care provided. Call chaves in reach. Safe environment maintained.
[2025-04-10 22:07] LABS: Glucose - Point of Care 139 mg/dl (70-99)
[2025-04-10] MEDS: CORDARONE 518 MG IV (23:49)
[2025-04-11] VITALS (26 sets, daily range): BP systolic 76–130; BP diastolic 34–89; PULSE 109; O2SAT 99; BMI 40.8
[2025-04-11 00:02] LABS: Glucose - Point of Care 153 mg/dl (70-99)
--- NOTE | 2025-04-11 00:05 | PTCARENOTE ---
Systems reviewed, no new changes in assessment. Insulin gtt maintained per protocol (see worklist). Frequently repositioned due to pain, PRN Ofirmev given (see MAR). Call chaves in reach. Safe environment maintained.
[2025-04-11] MEDS: DILAUDID 0.25 MG IV (00:32)
[2025-04-11] MEDS: NOVOLIN R INSULIN INFUSION 100 IV (01:16)
[2025-04-11 02:07] LABS: Glucose - Point of Care 141 mg/dl (70-99)
[2025-04-11 04:07] LABS: Glucose - Point of Care 158 mg/dl (70-99)
[2025-04-11 04:14] LABS: Hematocrit 27.9 % (37.0-47.0); Hemoglobin 8.6 g/dL (12.0-16.0); Mean Corp Hgb Conc. 30.8 g/dL (33.0-37.0); Mean Corpuscular Volume 99.3 fL (81.0-99.0); Platelet Count 52 10^3/uL (130-400); Red Cell Dist. Width 21.7 % (11.5-14.5)
--- NOTE | 2025-04-11 04:20 | PTCARENOTE ---
Systems reviewed, no new changes in assessment. AM labs provided. Call chaves in reach. Safe environment maintained.
[2025-04-11 04:32] LABS: Blood Urea Nitrogen 61 mg/dl (7-17); Calcium 7.7 mg/dl (8.4-10.2); Carbon Dioxide 25 mmol/L (22-30); Chloride 116 mmol/L (98-107); Estimated Creatinine Clearance 40 ml/min; Glucose 148 mg/dl (70-99); Magnesium 2.1 mg/dl (1.6-2.3); Potassium 4.3 mmol/L (3.5-5.1); Sodium 144 mmol/L (135-145); eGFR 42.88
[2025-04-11] MEDS: ZOSYN 50 IV ×4 (05:48→23:05)
[2025-04-11 06:01] LABS: Glucose - Point of Care 136 mg/dl (70-99)
[2025-04-11] MEDS: NOVOLOG FLEXPEN SC ×3 (07:08→16:22)
--- NOTE | 2025-04-11 07:35 | W.PN.INTV ---
Today's Communication / Plan
Recommendations
Pressors as needed
TPN and insulin drip continue
Remove nasogastric tube and advance to feeds as tolerated
Increase activity
Assessment
-
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
status post robotic abdominoperineal resection, BIANKA/BSO, VRAM flap perineal reconstruction, 03/28. Patient admitted to ICU postoperatively given significant blood loss, hypotension requiring pressors
Shock, hemorrhagic related to blood loss and likely post-op vasoplegia
Coagulopathy, suspect transfusion related. RUE negative for DVT
S/p robotic abdominoperineal resection, BIANKA/BSO, repair of vaginal defect, VRAM flap perineal reconstruction, 03/28/25
Concern for superficial necrosis of flap, s/p excisional debridement to muscle 10 x 30 cm with adjacent tissue transfer/ 04/03
OSMANY
Leukocytosis
Thrombocytopenia
Hyperkalemia
Hyperglycemia
Kleb UTI
Conditions present prior to admission
History of CKD stage IIIb
Diabetes
Anal squamous cell cancer, stage III
Diagnosed November 2023
s/p chemotherapy/radiation at [place]
Recurrence of disease per pelvic MRI January 2025
Follows oncology ([facility])
Atrial fibrillation on Eliquis
Now off amiodarone Per cardiology, remains on beta-joseph (Shadi)
Moderate pulm hypertension, echo March 2025, stable compared to prior echo
With dilated RV, normal function, PA pressure 66
Normal EF
Moderate mitral stenosis
History of stroke 1994 and again 2022 per patient
Suspected sleep apnea
Hypothyroidism
Plan:
Respiratory status remains stable
Continue supplemental oxygen-currently on 2 L - 99% saturation
Refusing BiPAP-likely has obstructive sleep apnea
Aspiration precautions
Nebulizers if needed-currently not bronchospastic
Pressors as needed--Adam weaned off
Continue midodrine
Monitor lactate if needed
Follow hemoglobin and platelet count
Transfuse as needed
HIT pending-low suspicion-low 4 T-score
With platelet counts improved heparin subcu reinitiated-hopefully cannot fully anticoagulate with history of atrial fibrillation in the next 24 hours-resume Eliquis
Cardiology following-correspondence reviewed
Amiodarone continues
Continue gentle IV diuresis
Monitor renal function, electrolytes, intake/output, lower extremity edema and weight
Replace electrolytes as needed
Echocardiogram 04/08/2025-EF 60-65%, moderate to severe tricuspid regurgitation, PA systolic 85
Atrial fibrillation rate control
Chronic heart failure preserved EF noted
Nasogastric tube will be removed 04/11/2025
Advance diet as tolerated
S/p robotic abdominoperineal resection, BIANKA/BSO, repair of vaginal defect, VRAM flap perineal reconstruction, 03/28/25
Complicated by blood loss, 1 L per OR records. TXA given intra-operatively
Colorectal surgery following-correspondence reviewed-Dr. Scott reviewed with colorectal surgery
TPN per surgery continues
Insulin drip continues per diabetic nurse practitioner management while on TPN
Cultures reviewed
Empiric antibiotics continues-finished a finite course of Zosyn-Will discontinue after today and observe off antibiotics
Monitor leukocytosis and temperature curve
Concern for superficial necrosis of flap, 04/03/25
Patient returned to OR for excisional debridement - followed by plastics
Monitor blood sugars closely
Insulin drip continues
Diabetic nurse practitioner following-correspondence reviewed-continue insulin infusion while on TPN
DVT prophylaxis--heparin held due to thrombocytopenia
GI prophylaxis-on Protonix
Nutrition per surgery
Bedside range of motion/eventual physical and Occupational Therapy
Eventual outpatient pulmonary/sleep disorders follow-up
Critical care statement: A total of 42 minutes of critical care time was provided for this patient today. This includes management of unstable vital signs, evaluation of the patient at bedside, reviewing the patient�s pertinent medical records
including radiographs, pressor management, microbiology, laboratory evaluations, and��discussion with primary team, consultants, pharmacy, nutrition, physical therapy, case management, charge nurse, critical care nursing, and respiratory therapy.
Data:
CXR 04/02/25- Low lung volumes with patchy bibasilar opacities, likely atelectasis and/or small effusion. No significant effusions or pneumothorax appreciated.
03/28/25- Nasogastric tube is present with tip near the gastroesophageal junction and distal sidehole in the distal esophagus. Consideration for advancement of this tube. Interstitial edema. Linear atelectasis in the right midlung. Mild to moderate
elevation of the left hemidiaphragm, new since previous radiograph. Probable small bilateral pleural effusions.
CT CAP 02/21/25- Circumferential anal wall thickening consistent with known malignancy versus posttreatment change. Probably stable. No evidence of metastatic disease. However, extremely limited exam without IV contrast. Tiny pericardial effusion.
Stable. Progressed small right and new tiny left pleural effusions. Findings suggesting moderate bilateral lower lobe and mild upper lobe pneumonia. New. Mild mediastinal lymphadenopathy. Probably reactive. Stable. Gallstones. Stable. Mild diffuse
bladder wall thickening. This can be seen with cystitis or bladder outlet obstruction. Improved.
Findings suggesting bilateral lower third spacing. Progressed
Echo 03/25/2025: Normal biventricular function with mildly dilated RV, moderate mitral stenosis, severe TR, PA pressure 66
Subjective Dataa
Subjective Data
Date of Service:
Date of Service: April 11, 2025
Chief Complaint: Radiation Therapist Follow Up and Pulmonary Follow Up
Subjective:
Feels better, no complaints of shortness of breath, chest congestion, chest pain and currently no buttocks pain
Review of Systems
General: Other (Per HPI)
Objective Data
Data Reviewed
Vital Signs / I&O / Oxygen:
Vital Signs
Temp Pulse Resp BP Pulse Ox
97.5 F 107 17 89/60 100
04/11/25 07:32 04/11/25 07:00 04/11/25 07:00 04/11/25 07:00 04/11/25 07:00
Intake and Output
04/10/25 04/11/25 04/12/25
06:59 06:59 06:59
Intake Total 2297.5 / 2370.7 2180.4 / 2180.4
Output Total 2765 / 2865 2390 / 2390
Balance -467.5 / -494.3 -209.6 / -209.6
SaO2 100
Nasal Cannula flow liters per 2
minute
Physical Exam
General: Respiratory Distress (n), Comfortable, Poor Appetite and Other (NAD)
HEENT: Normocephalic, Anicteric and Moist Mucous Membranes
Cardiovascular: Regular Rhythm
Respiratory: Clear, Rhonchi (n) and Non-Labored Respirations
GI: Soft, Non Distended, Non Tender, NG Tube (Ostomy with increased stool output, PRETTY drains yellow serous fluid) and Other (abdominal incisions are noted)
Neurology: Awake, Alert and No Motor Deficits (Generally weak)
Skin: Warm, Good Color (Mild pallor), Cyanosis (n), Jaundice (n) and Rash (n)
Labs/Micro/Reports
Lab Data
04/11/25 03:55
04/11/25 03:55
--- NOTE | 2025-04-11 07:42 | PN.DE.MGMTRT ---
Insulin Management
- -
04/11/2025: Diabetes Management Follow up
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 PMH anal sq. cell CA, pacemaker, diabetes, hypothyroid, obesity, a fib, HTN, ASCVD/CVA, HCL. Prior to admission was taking Tresiba 8 units @ HS with
glyburide 2.5 mg daily. States she has had diabetes 20 years, has glucose monitor. States she only took the glipizide if her glucose was > 135. A1C 5.7%, cr 1.4, eGFR 39.23.
Patient is awake and alert able to discuss diabetes care. Patient currently receiving TPN, and is on the critical care glycemic protocol.
On 04/09 Insulin infusion was off from 8am to 12pm, was restarted @ 1pm for glucose 232, remained on overnight requiring 2 to 3.5 units per hour.
Current Glucose range 136 to 158, receiving 1.5 to 1.7 units of insulin per hour.
Will continue insulin infusion while on TPN. Discussed with nurse. Will cont to follow.
Diabetes History
- -
Type of Diabetes: 2 requiring insulin
Pre-Admission Diabetes Regimen
04/11/25
03:55
Creatinine 1.3 H
Lab Results
Hemoglobin A1c 5.7 % (4.0-5.6) H 03/26/25 10:51
Insulin Pump Settings
IP Diabetes Regimen
04/10/25 04/10/25 04/10/25
08:05 09:58 12:21
Glucose
POC Glucose 131 H 140 H 151 H
04/10/25 04/10/25 04/10/25
14:17 16:13 18:09
Glucose
POC Glucose 171 H 139 H 147 H
04/10/25 04/10/25 04/10/25
19:53 21:56 23:51
Glucose
POC Glucose 171 H 139 H 153 H
04/11/25 04/11/25 04/11/25
01:55 03:55 03:56
Glucose 148 H
POC Glucose 141 H 158 H
04/11/25
05:49
Glucose
POC Glucose 136 H
Patient Education
[2025-04-11] MEDS: DESENEX/MITRAZOL/ZEASORB 1 APPLIC TOPICAL ×2 (07:49→19:34)
[2025-04-11] MEDS: DILAUDID 0.5 MG IV ×3 (07:49→19:33)
[2025-04-11] MEDS: PROTONIX IV 40 MG IV (07:50)
[2025-04-11] MEDS: NSS (PRESERVATIVE FREE) 10 ML IV (07:50)
[2025-04-11 08:23] LABS: Glucose - Point of Care 125 mg/dl (70-99)
--- NOTE | 2025-04-11 08:43 | W.PN.CRS1 ---
Today's Communication / Plan
-
Clears/TPN.
Assessment/Plan
-
POD 14 from APR.
1. NGT out. Stoma functioning. Trial clears. Continue TPN for now.
2. off merrill gtts for 2 days.
3. WBC improving. Antibiotics per ID.
4. OOB/PT.
5. flap management per plastics.
6. appreciate ICU care.
Subjective Data
Procedure
03/28/2025- RAL APR (CRS), vaginal defect repair with BIANKA/BSO (OSTEOPATHIC MEDICINE TEACHER) and VRAM flap (Plastics)
Subjective Data
Date of Service: April 11, 2025
Awake. Comfortable. NGT out. No nausea.
Objective Data
-
Vital Signs
Temp Pulse Resp BP Pulse Ox
97.5 F 111 26 102/69 100
04/11/25 07:32 04/11/25 08:00 04/11/25 08:00 04/11/25 08:00 04/11/25 08:00
Intake & Output
04/10/25 04/11/25 04/12/25
06:59 06:59 06:59
Intake Total 2297.5 / 2370.7 2180.4 / 2253.6 386.4 / 386.4
Output Total 2765 / 2865 2390 / 2490 175 / 175
Balance -467.5 / -494.3 -209.6 / -236.4 211.4 / 211.4
Intake:
Oral fluids 170 / 170 240 / 240
IV fluids (Total) 457.5 / 475.7 440.4 / 458.6 36.4 / 36.4
Amiodarone. 417.5 / 434.2 400.8 / 417.5 33.4 / 33.4
Insulin 40.0 / 41.5 39.6 / 41.1 3.0 / 3.0
IV piggybacks 350 / 350 250 / 250
TPN/PPN 1400 / 1455 1320 / 1375 110 / 110
Amount instilled into GI Tube (
Total)
[place] Sump
Output:
Liquid stool amount 20 / 20
Colostomy 20 / 20
Drain Output (Total) 655 / 655 775 / 775
Left Lower Abdomen Pierce- 245 / 245 410 / 410
Hoover
Right Lower Abdomen Pierce- 235 / 235 235 / 235
Hoover B
Sacrum Pierce-Hoover C 175 / 175 130 / 130
Gastrointestinal tube output ( 500 / 500
Total)
[place] Sump 500 / 500
Urine, Rogers 1610 / 1710 1595 / 1695 175 / 175
Lab Results
04/11/25 03:55
04/11/25 03:55
Physical Exam
-
General: No Acute Distress
Chest: Clear
Cardiovascular: Sinus Tachycardia
Abdomen: Soft, Non Distended, Non Tender and Other (midline incision looks good; stoma viable with output; upper JPs with serous output; gluteal PRETTY with murky output)
--- NOTE | 2025-04-11 08:49 | W.PN.INTV ---
Today's Communication / Plan
Recommendations
plan reviewed with attending
Assessment
-
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
status post robotic abdominoperineal resection, BIANKA/BSO, VRAM flap perineal reconstruction, 03/28. Patient admitted to ICU postoperatively given significant blood loss, hypotension requiring pressors now off pressors.
Pt is recovering well off pressors with NG out. Advancing diet per surgery.
Shock, hemorrhagic related to blood loss and likely post-op vasoplegia
Coagulopathy, suspect transfusion related. RUE negative for DVT
S/p robotic abdominoperineal resection, BIANKA/BSO, repair of vaginal defect, VRAM flap perineal reconstruction, 03/28/25
Concern for superficial necrosis of flap, s/p excisional debridement to muscle 10 x 30 cm with adjacent tissue transfer/ 04/03
OSMANY
Leukocytosis
Thrombocytopenia
Hyperkalemia
Hyperglycemia
Kleb UTI
Conditions present prior to admission
History of CKD stage IIIb
Diabetes
Anal squamous cell cancer, stage III
Diagnosed November 2023
s/p chemotherapy/radiation at [place]
Recurrence of disease per pelvic MRI January 2025
Follows oncology ([facility])
Atrial fibrillation on Eliquis
Now off amiodarone Per cardiology, remains on beta-joseph (Shadi)
Moderate pulm hypertension, echo March 2025, stable compared to prior echo
With dilated RV, normal function, PA pressure 66
Normal EF
Moderate mitral stenosis
History of stroke 1994 and again 2022 per patient
Suspected sleep apnea
Hypothyroidism
Plan:
Neuro:
Extubated and weaned off sedation
Pain control
Rass goal 0
Pain control: ofrimev. PRN dilaudid
Cardio:
Shock, hemorrhagic related to blood loss and likely post-op vasoplegia. Off pressors on midodrine 10mg
Suspect RVR with A fib also contributing to hypotension and difficulty weaning of Levophed.
Eliquis on hold in view of bleeding.
Amiodarone bolus and infusion started 04/02, Cardiology consult, tachycardia better controlled. Amiodarone drip continued.
Chronic HFpEF - f/u CXR stable
Continue telemetry monitoring
Echo 04/08 demonstrated PASP 85 prior 66
Pulm:
Remains on low supplemental o2, wean to off. Currently 1L
Chest x-ray without acute findings. Concern for LLL pneumonia stable on CXR. Repeat CXR if change in clinical symptoms. On broad spectrum abx.
Encourage out of bed, I-S
Aspiration precautions
BIPAP overnight
GI:
Diet advanced to clears.
Increased ostomy output.
S/p robotic abdominoperineal resection, BIANKA/BSO, repair of vaginal defect, VRAM flap perineal reconstruction, 03/28/25
Continues TPN pending PO intake
Colorectal following
PRETTY drains output serous stable.
ID:
Was on ancef for kleb UTI. Increased WBC and broadened abx--on zosyn. Day 7/ zosyn with improved leukocytosis
Patient returned to OR for excisional debridement - followed by plastics. Flap evaluated by surgeons today
Heme:
Coagulopathy, suspect transfusion related
INR noted to be elevated, gave vitamin K 10 mg IV 03/31. Fresh frozen plasma, 2 units, IV calcium given for hypocalcemia 03/31
If additional blood transfusion needed will give FFP and platelets along with PRBC
Follow CBC. Hgb and plts stable.
HIT panel pending.
Plts elevated above 50, resuming DVT prophylaxis. If plts>50 tomorrow, resume full afib anticoagulation.
:
Mild OSMANY - Decreased urine out put, dry mouth, also hypotensive, suspect intra-vascular hypovolemia
s/p > 2 ltr LR and Albumin 04/06
Follow creat, IOs. stable
Replete electrolytes as needed
Endocrine:
Insulin protocol started due to hyperglycemia with tpn. Once PO improves and tpn stopped, can stop insulin drip
accu checks q1
DVT prophylaxis: Heparin held-HIT panel negative. SCDs in place. Heparin started.
GI prophylaxis: Protonix
Data:
CXR 04/02/25- Low lung volumes with patchy bibasilar opacities, likely atelectasis and/or small effusion. No significant effusions or pneumothorax appreciated.
03/28/25- Nasogastric tube is present with tip near the gastroesophageal junction and distal sidehole in the distal esophagus. Consideration for advancement of this tube. Interstitial edema. Linear atelectasis in the right midlung. Mild to moderate
elevation of the left hemidiaphragm, new since previous radiograph. Probable small bilateral pleural effusions.
CT CAP 02/21/25- Circumferential anal wall thickening consistent with known malignancy versus posttreatment change. Probably stable. No evidence of metastatic disease. However, extremely limited exam without IV contrast. Tiny pericardial effusion.
Stable. Progressed small right and new tiny left pleural effusions. Findings suggesting moderate bilateral lower lobe and mild upper lobe pneumonia. New. Mild mediastinal lymphadenopathy. Probably reactive. Stable. Gallstones. Stable. Mild diffuse
bladder wall thickening. This can be seen with cystitis or bladder outlet obstruction. Improved.
Findings suggesting bilateral lower third spacing. Progressed
Echo 03/25/2025: Normal biventricular function with mildly dilated RV, moderate mitral stenosis, severe TR, PA pressure 66
Subjective Dataa
Subjective Data
Date of Service:
Date of Service: April 11, 2025
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
Subjective:
Pt reports feeling well today. denies increase in appetite but encouraged that she can drink water today with the tube out.
Objective Data
Data Reviewed
Vital Signs / I&O / Oxygen:
Vital Signs
Temp Pulse Resp BP Pulse Ox
97.5 F 111 26 102/69 100
04/11/25 07:32 04/11/25 08:00 04/11/25 08:00 04/11/25 08:00 04/11/25 08:00
Intake and Output
04/10/25 04/11/25 04/12/25
06:59 06:59 06:59
Intake Total 2297.5 / 2370.7 2180.4 / 2253.6 386.4 / 386.4
Output Total 2765 / 2865 2390 / 2490 175 / 175
Balance -467.5 / -494.3 -209.6 / -236.4 211.4 / 211.4
SaO2 100
Nasal Cannula flow liters per 2
minute
Physical Exam
General: Comfortable, Poor Appetite and Other (NAD)
HEENT: Normocephalic, Anicteric and Moist Mucous Membranes
Cardiovascular: Regular Rhythm
Respiratory: Clear, Rhonchi (n) and Non-Labored Respirations
GI: Soft, Non Distended, Non Tender and Other (abdominal incisions are noted, drain with serous fluid)
Neurology: Awake, Alert and No Motor Deficits (Generally weak)
Skin: Warm and Good Color (Mild pallor)
Labs/Micro/Reports
Lab Data
04/11/25 03:55
04/11/25 03:55
--- NOTE | 2025-04-11 09:30 | W.PN.PLAS ---
Progress Note
Subjective Data
Improving, some complaints of pain
Objective Data
Vital Signs
Temp Pulse Resp BP Pulse Ox
98.3 F 108 23 62/47 95
04/12/25 04:11 04/12/25 07:34 04/12/25 07:34 04/12/25 07:34 04/12/25 06:30
Intake and Output
04/11/25 04/12/25 04/13/25
06:59 06:59 06:59
Intake Total 2180.4 / 2253.6 2821.2 / 2821.2
Output Total 2390 / 2490 3330 / 3330
Balance -209.6 / -236.4 -508.8 / -508.8
Intake:
Oral fluids 170 / 170 960 / 960
IV fluids (Total) 440.4 / 458.6 441.2 / 441.2
Amiodarone. 400.8 / 417.5 400.8 / 400.8
Insulin 39.6 / 41.1 40.4 / 40.4
IV piggybacks 250 / 250 100 / 100
TPN/PPN 1320 / 1375 1320 / 1320
Output:
Liquid stool amount 20 / 20 75 / 75
Colostomy 20 / 20 75 / 75
Drain Output (Total) 775 / 775 550 / 550
Left Lower Abdomen Pierce- 410 / 410 225 / 225
Hoover
Right Lower Abdomen Pierce- 235 / 235 250 / 250
Hoover B
Sacrum Pierce-Hoover C 130 / 130 75 / 75
Urine, Rogers 1595 / 1695 2705 / 2705
Physical exam:
No acute distress
No increased work of breathing
Abdominal incision remains in place with routine healing
Drain serosanguineous
Peroneal drain murky with fat necrosis, improving
Pressure related injury to the skin of the sacrum and perineum, incision remains intact
Lab Results
04/12/25 03:39
04/12/25 03:39
Wound Documentation
04/08/25 15:05 Wound Note by Radha Kelly
[facility] RN: Appliance changed today, daughter and sister in law at bedside. Stoma pale pink, slightly budded, for small amt of straw colored output. Peristomal skin is blotchy red in some areas. Yaneth seal and 2 3/4' flat wafer with pouch applied. Will
call [facility] for stoma powder to use next change. Teaching done with patient and family regarding appliance change, emptying and skin care. Answered all questions, supplies at bedside.
Initialized on 04/08/25 15:05 - END OF NOTE
Assessment / Plan
Status post myocutaneous flap reconstruction after APR, debridement and adjacent tissue transfer
Pressure offloading to the perineum Q1 hour position changes, pressure offloading mattress
Strip and record PRETTY drain output
Cont abx
Trend WBC, leukocytosis improving
--- NOTE | 2025-04-11 09:30 | PTCARENOTE ---
Rec'd care of patient at 0700. AAOx3. Anxious at times. MAEx4. Afib on tele. Rate 100-110's. Amio gtt infusing through right SQ port. +2 generalized anasarca. +3 edema in RUE; weeping. Palpable pulses. Pulse ox 99% on 2L nc. Lung sounds shallow,
diminished. Crackles auscultated in left base. Hypo BS. Colostomy with stool output. Tolerating sips of clears. Abdominal incision and flap approximated. Dressings c/d/i. PRETTY drains x3. Rogers in place for critical I/O. TPN and Insulin infusing
through LDL PICC. GP continued. Patient only complaint is pain/discomfort on sacrum. Frequent repositioning and prn Dilaudid administered.
[2025-04-11 09:53] LABS: Glucose - Point of Care 125 mg/dl (70-99)
--- NOTE | 2025-04-11 10:11 | PTCARENOTE ---
Patient sat at side of bed with PT/OT. Vitals stable.
--- NOTE | 2025-04-11 10:35 | W.PN.CD ---
Today's Communication / Plan
-
IV lasix x1
IV amiodarone
trends plts and Cr
Impression / Plan
-
Anal cancer:
- s/p robotic abdominoperineal resection, repair of vaginal defect, robotic total laparoscopic hysterectomy, bilateral salpingo-oophorectomy, vertical rectus abdominis myocutaneous flap reconstruction of the perineum, cystoscopy and bilateral
ureteral stent insertion (03/28/25)
- post-op course complicated by hypotension requiring blood products, fluid, vasopressors
- S/p hemorrhagic shock, s/p 5 U PRBC (4 on 03/28/2025 and 1 on 03/31/2025)
-improved, remains on midodrine
Persistent AFib
- Mildly elevated rates. Appropriate for current clinical circumstance. Using IV amiodarone drip b/c of BP and GI status
-requires monitoring on tele
- Resume Eliquis if plts remain above 50
Acute on Chronic HFpEF:
-also with moderate mitral stenosis, mod/severe TR, severe pulm HTN
- From her critical illness and support her weight is way up from baseline 86.3 kg. Now at 98 kg. Patient with upper and lower extremity edema but still with low blood pressures which are limiting diuretic use
-give IV lasix 40mg x1, and monitor labs/tele
-re-assess in AM
Pacemaker: followed in our office
Subjective: denies CP or dyspnea
Data:
Echo 03/25/25: LVEF 55-60%. Mod MS, mean 5 mmHg. Mod-severe TR, est PASP 66 mmHg, est RA 8 mmHg. Stable from 02/15/2024
Echo 04/08/2025: LVEF 60-65%, dilate RV and reduced EF, PASP 85mmHg
Physical Exam
Vital Signs/Labs
Vital Signs
Temp Pulse Resp BP Pulse Ox
97.5 F 112 20 94/77 90
04/11/25 07:32 04/11/25 10:00 04/11/25 10:00 04/11/25 10:00 04/11/25 10:00
04/10/25 04/11/25 04/12/25
06:59 06:59 06:59
Actual Weight 98.248 kg 97.931 kg
04/11/25 03:55
04/11/25 03:55
PT 21.5 Sec (11.4-14.6) H 04/04/25 14:51
INR 1.85 04/04/25 14:51
APTT 32.1 Sec (23.4-35.0) 04/04/25 14:51
Magnesium 2.1 mg/dl (1.6-2.3) 04/11/25 03:55
Triglycerides 115 mg/dl (10-149) 04/07/25 03:10
Physical Exam
Constitutional: No acute distress
EENT: Moist mucous membranes
Cardiovascular: Pedal edema present and JVD present
Respiratory: Respiratory effort normal
Neuro/Psych: Alert
Data Reviewed
-
Date of Service: April 11, 2025
EKG: Other (Tele: A fib, avg 100-110s)
Echo: Report Reviewed by me
Labs: Labs Reviewed by me
[2025-04-11] MEDS: LASIX 40 MG IV (11:04)
[2025-04-11 11:07] LABS: Glucose - Point of Care 139 mg/dl (70-99)
--- NOTE | 2025-04-11 11:55 | PTCARENOTE ---
No major changes. Patient resting comfortably in bed. Tolerated tray of clears. 40mg IV Lasix administered as ordered. TPN/Amio/Insulin infusing.
--- NOTE | 2025-04-11 12:02 | W.PN.HOSP.TC ---
Today's Communication/Plan
-
Clear liquid diet
Platelet improving.
Start heparin subcu
Assessment / Plan
Assessment / Plan
Impression:
Patient is a 74y F with PMH significant for A-Fib, CHF and anal cancer with recent recurrence who presented to on 03/28 for scheduled surgery for resection of recurrent malignancy. Patient underwent ureteroscopy with bilateral ureteral stents,
robotic APR, BIANKA / BSO, repair of vaginal defect and perineal reconstruction / flap on 03/28/25. She received 2 units PRBC and 1g TXA during the surgeries. Patient was successfully extubated post-op. She was on pressors post-op which were able to
be weaned, but have since been restarted at low dose to maintain adequate perfusion.
Medicine service was consulted for management of patient's multiple medical issues.
Patient Status post debridement on 04/03/2025 of flap to muscle. Pressure offloading per plastics surgery recs.
Worsening thrombocytopenia.
Heparin held, HIT antibody negative
Assessment/plan:
Anal Cancer s/p Robotic APR, BIANKA/BSO, Repair of Vaginal Defect, Perineal Reconstruction / Flap
Concern for superficial necrosis of the flap
- Continue post-op care per surgical service(s). Pain control.
- Continue with NG tube. NGT clamping trial once with signs of ROBF.
- Pain control. OOB/activity per surgery post op.
- IV Ancef transition to Zosyn as below. Improvement in leukocytosis.
- Status post debridement on 04/03/2025 of flap to muscle. Pressure offloading per plastics surgery recs
- Patient now started on TPN.
04/10
Patient had BM.
Consider start trial of oral feeding if okay with surgery team
04/11
Start with clear liquid diet
Acute Blood Loss Anemia
Shock likely secondary to hemorrhagic and hypovolemia
Coagulopathy with thrombocytopenia
- Received 5 units PRBCs total thus far (and 1 g TXA) and 2units of FFP and 10mg of Vitamin K. Hemoglobin at 9
- Currently on low-dose phenylephrine for BP support - wean as able. Midodrine started
- IV ppi. IVF has been stopped.
- Follow H&H and transfuse additional blood products if needed. If persistent downtrend of hemoglobin may need to consider CT abdomen pelvis
- If persistent downtrend in platelets noted check fibrinogen, D-dimer. Low likelihood of DIC.
04/07
HIT at antibodies pending.
04/08
Worsening thrombocytopenia.
04/09
Thrombocytopenia slightly improved.
HIT antibodies still pending.
04/10
Platelet improving
04/11
Platelet 52, resume heparin subcu
Leukocytosis
- Likely multifactorial due to reactive versus UTI versus pneumonia
- Ancef switched to Zosyn. Leukocytosis downtrending. up today but overall trending down.
04/08
Improved leukocytosis
Vasovagal episode on 04/04/2025
- Likely multifactorial in the setting of shock, atrial fibrillation, hypovolemia, fluid shift
- Blood pressure stabilized to some extent. Remains on pressors.
Persistent Atrial Fibrillation
- now in RVR. IV amiodarone started.
- Lopressor IV at low dose with holding parameters for BP.
- Eliquis on hold for surgery, blood loss, etc.
- Cardiology following
Anasarca likely secondary to iatrogenic fluid administration PRBC, FFP, IV fluids etc
- RUE venous doppler pending
- Patient has gained significant weight since admission
- Currently on 40 mg of IV Lasix. Monitor urinary output. May require additional diuresis however limiting factor due to hypotension
Transaminitis likely secondary to shock
- LFTs are improving.
Hypothermia
- Mild hypothermia post-op. Likely combination of anesthesia, blood loss, etc.
- resolved
Acute hypoxic respiratory insufficiency
- Wean O2 as tolerated.
Chronic HFpEF
- Hypotensive at present as noted above.
- Continue to follow accurate I/Os, daily weights, etc.
-
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
- Now started on IV insulin infusion per critical care glycemic protocol
- A1C was 5.7 on 03/26/25.
CKD III
- Stable. SCr is actually improved from prior baseline (1.3 compared to 1.6).
- Monitor urinary output.
Hypothyroidism
- TFTs normal in February of this year.
- Repeat TFTs given hypothermia- TSH wnl.
- Started on IV levothyroid
Hypocalcemia
Hypomagnesemia
Hypophosphatemia
Hypokalemia
-Replete and monitor
Mild hypernatremia
- Monitor for now. Improved
CODE STATUS: Full code
DVT prophylaxis: Heparin resumed
Diet: CLD
Total time spent on today's encounter was 65 minutes which included time spent in counseling the patient/family regarding diagnosis and treatment plan as listed above, goals of care, and symptom management. Case was discussed with nursing staff,
specialists, and care coordinators/case management. All labs and imaging personally reviewed by me. Remainder the time spent in detailed review of previous records, lab data, imaging, and other medical provider documentation.
Anticipated Discharge: > 48 hours
Subjective/Interval History
-
Date of Service: April 11, 2025
Overall improving, NG tube removed, started clear liquid
Objective Data
-
Labs:
Laboratory Results
04/11/25
03:55
WBC 12.8 H
Hgb 8.6 L
Hct 27.9 L
Plt Count 52 L
Sodium 144
Potassium 4.3
Chloride 116 H
Carbon Dioxide 25
BUN 61 H
Creatinine 1.3 H
Glucose 148 H
Calcium 7.7 L
Vital Signs:
Vital Signs
Temp Pulse Resp BP Pulse Ox
97.6 F 115 23 105/76 90
04/11/25 11:44 04/11/25 11:04 04/11/25 11:00 04/11/25 11:04 04/11/25 10:00
I&O
04/10/25 04/11/25 04/12/25
06:59 06:59 06:59
Intake Total 2297.5 / 2370.7 2180.4 / 2253.6 605.1 / 605.1
Output Total 2765 / 2865 2390 / 2490 375 / 375
Balance -467.5 / -494.3 -209.6 / -236.4 230.1 / 230.1
Physical Exam
-
General: Well Developed, Well Nourished and Obese
HEENT: Normocephalic, Atraumatic and Other (NG tube)
Respiratory: Rales and Non Labored Respirations
Cardiac: S1/S2 and Irregular Rhythm
Breast: Deferred by me
GI: Tender and Other (Drain at surgical site)
Genito-urinary: No Costovertebral Tender
Musculoskeletal: No Clubbing and No Cyanosis
Skin: Warm
Neuro: Awake, Alert, Oriented and AO x 3
Psych: Calm
[2025-04-11 12:10] LABS: Glucose - Point of Care 120 mg/dl (70-99)
[2025-04-11 14:19] LABS: Glucose - Point of Care 120 mg/dl (70-99)
--- NOTE | 2025-04-11 16:23 | PTCARENOTE ---
Glucose level 70. Per GP, drip turned off. Patient assisted in ordering dinner tray. No other changes.
[2025-04-11] MEDS: HEPARIN 5000 UNITS SC ×2 (16:35→23:05)
--- NOTE | 2025-04-11 16:39 | CM ---
TPN and insulin drip continue, NG removed, diet advance as tolerated. Discharge POC: SNF. Referrals previously forwarded.
[2025-04-11 17:12] LABS: Glucose - Point of Care 73 mg/dl (70-99)
[2025-04-11 18:22] LABS: Glucose - Point of Care 104 mg/dl (70-99)
[2025-04-11 19:13] LABS: Glucose - Point of Care 146 mg/dl (70-99)
[2025-04-11] MEDS: OFIRMEV 100 IV (19:32)
[2025-04-11] MEDS: Parenteral Nutrition, Central 1320 IV (19:53)
--- NOTE | 2025-04-11 20:00 | PTCARENOTE ---
Received pt. at 1900. Pt. currently awake. Drowsy, but oriented. C/o pains, PRN medication. See MAR. Afebrile. Heart rhythm afib. Blood pressure normotensive. Currently on 2L nasal cannula. Lungs sound diminished. Po diet clears. Okay appetite.
Rogers catheter in place, draining without issue. Skin as documented. Vital signs stable at this time.
[2025-04-11 20:14] LABS: Glucose - Point of Care 151 mg/dl (70-99)
[2025-04-11 22:15] LABS: Glucose - Point of Care 232 mg/dl (70-99)
[2025-04-11 23:11] LABS: Glucose - Point of Care 264 mg/dl (70-99)
[2025-04-12] VITALS (43 sets, daily range): BP systolic 62–118; BP diastolic 32–91; BMI 40.9
[2025-04-12 00:06] LABS: Glucose - Point of Care 245 mg/dl (70-99)
[2025-04-12 01:07] LABS: Glucose - Point of Care 198 mg/dl (70-99)
[2025-04-12] MEDS: DILAUDID 0.5 MG IV (01:16)
[2025-04-12] MEDS: NEO-SYNEPHRINE 250 IV ×3 (01:16→23:35)
--- NOTE | 2025-04-12 01:30 | PTCARENOTE ---
Pt. with ongoing hypotension despite administering scheduled midodrine. Neosynephrine gtt started. Blood pressure improving.
[2025-04-12 02:08] LABS: Glucose - Point of Care 156 mg/dl (70-99)
[2025-04-12 03:15] LABS: Glucose - Point of Care 125 mg/dl (70-99)
[2025-04-12 03:57] LABS: Hematocrit 28.7 % (37.0-47.0); Hemoglobin 8.9 g/dL (12.0-16.0); Mean Corp Hgb Conc. 31.0 g/dL (33.0-37.0); Mean Corpuscular Volume 100.0 fL (81.0-99.0); Platelet Count 66 10^3/uL (130-400); Red Cell Dist. Width 22.7 % (11.5-14.5)
--- NOTE | 2025-04-12 04:00 | PTCARENOTE ---
Pt. assessment unchanged. AM labs drawn. Vital signs stable at this time.
[2025-04-12 04:13] LABS: Blood Urea Nitrogen 65 mg/dl (7-17); Calcium 8.0 mg/dl (8.4-10.2); Carbon Dioxide 23 mmol/L (22-30); Chloride 115 mmol/L (98-107); Estimated Creatinine Clearance 37 ml/min; Glucose 97 mg/dl (70-99); Magnesium 2.0 mg/dl (1.6-2.3); Potassium 4.1 mmol/L (3.5-5.1); Sodium 144 mmol/L (135-145); eGFR 39.23
[2025-04-12 04:17] LABS: Glucose - Point of Care 96 mg/dl (70-99)
[2025-04-12 05:17] LABS: Glucose - Point of Care 85 mg/dl (70-99)
[2025-04-12] MEDS: SYNTHROID 150 MCG PO (05:33)
[2025-04-12] MEDS: ZOSYN 50 IV (05:33)
[2025-04-12 06:19] LABS: Glucose - Point of Care 87 mg/dl (70-99)
[2025-04-12 07:14] LABS: Glucose - Point of Care 139 mg/dl (70-99)
[2025-04-12] MEDS: NOVOLOG FLEXPEN SC ×2 (07:53→18:36)
[2025-04-12] MEDS: OFIRMEV 100 IV (07:54)
[2025-04-12] MEDS: CORDARONE 518 MG IV (07:54)
--- NOTE | 2025-04-12 07:58 | W.PN.INTV ---
Today's Communication / Plan
Recommendations
Wean pressors
Consider changing analgesia to oral medications
Advance diet per surgery
TPN and insulin drip continued for now
Assessment
-
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
status post robotic abdominoperineal resection, BIANKA/BSO, VRAM flap perineal reconstruction, 03/28. Patient admitted to ICU postoperatively given significant blood loss, hypotension requiring pressors
Shock, hemorrhagic related to blood loss and likely post-op vasoplegia
Coagulopathy, suspect transfusion related. RUE negative for DVT
S/p robotic abdominoperineal resection, BIANKA/BSO, repair of vaginal defect, VRAM flap perineal reconstruction, 03/28/25
Concern for superficial necrosis of flap, s/p excisional debridement to muscle 10 x 30 cm with adjacent tissue transfer/ 04/03
OSMANY
Leukocytosis
Thrombocytopenia
Hyperkalemia
Hyperglycemia
Kleb UTI
Conditions present prior to admission
History of CKD stage IIIb
Diabetes
Anal squamous cell cancer, stage III
Diagnosed November 2023
s/p chemotherapy/radiation at [facility]
Recurrence of disease per pelvic MRI January 2025
Follows oncology ([facility])
Atrial fibrillation on Eliquis
Now off amiodarone Per cardiology, remains on beta-joseph (Shadi)
Moderate pulm hypertension, echo March 2025, stable compared to prior echo
With dilated RV, normal function, PA pressure 66
Normal EF
Moderate mitral stenosis
History of stroke 1994 and again 2022 per patient
Suspected sleep apnea
Hypothyroidism
Plan:
Respiratory status remains stable-critically ill and back on pressors
Continue supplemental oxygen-currently on 2 L - 99% saturation
Refusing BiPAP-likely has obstructive sleep apnea
Aspiration precautions
Nebulizers if needed-currently not bronchospastic
Pressors as needed--Adam weaned off for 48 hours and then reinitiated yesterday-may have been related to Dilaudid intravenous administration
Continue midodrine
Wean pressors
Monitor lactate if needed
Follow hemoglobin and platelet count
Transfuse as needed
HIT pending-low suspicion-low 4 T-score
With platelet counts improved heparin subcu reinitiated-hopefully cannot fully anticoagulate with history of atrial fibrillation in the next 24 hours-resume Eliquis
Cardiology following-correspondence reviewed
Amiodarone continues
Continue gentle IV diuresis
Monitor renal function, electrolytes, intake/output, lower extremity edema and weight
Replace electrolytes as needed
Echocardiogram 04/08/2025-EF 60-65%, moderate to severe tricuspid regurgitation, PA systolic 85
Atrial fibrillation rate control
Chronic heart failure preserved EF noted
Nasogastric tube will be removed 04/11/2025
Advance diet as tolerated
S/p robotic abdominoperineal resection, BIANKA/BSO, repair of vaginal defect, VRAM flap perineal reconstruction, 03/28/25
Complicated by blood loss, 1 L per OR records. TXA given intra-operatively
Colorectal surgery following-correspondence reviewed-Dr. Scott reviewed with colorectal surgery
TPN per surgery continues-discontinue when tolerating advance diet
Insulin drip continues per diabetic nurse practitioner management while on TPN
Cultures reviewed
Empiric antibiotics continues-finished a finite course of Zosyn-Will discontinue after today and observe off antibiotics
Monitor leukocytosis and temperature curve
Concern for superficial necrosis of flap, 04/03/25
Patient returned to OR for excisional debridement - followed by plastics
Monitor blood sugars closely
Insulin drip continues
Diabetic nurse practitioner following-correspondence reviewed-continue insulin infusion while on TPN
DVT prophylaxis--heparin held due to thrombocytopenia
GI prophylaxis-on Protonix
Nutrition per surgery
Bedside range of motion/eventual physical and Occupational Therapy
Eventual outpatient pulmonary/sleep disorders follow-up
Critical care statement: A total of 40 minutes of critical care time was provided for this patient today. This includes management of unstable vital signs, evaluation of the patient at bedside, reviewing the patient�s pertinent medical records
including radiographs, pressor management, microbiology, laboratory evaluations, and��discussion with primary team, consultants, pharmacy, nutrition, physical therapy, case management, charge nurse, critical care nursing, and respiratory therapy.
Data:
CXR 04/02/25- Low lung volumes with patchy bibasilar opacities, likely atelectasis and/or small effusion. No significant effusions or pneumothorax appreciated.
03/28/25- Nasogastric tube is present with tip near the gastroesophageal junction and distal sidehole in the distal esophagus. Consideration for advancement of this tube. Interstitial edema. Linear atelectasis in the right midlung. Mild to moderate
elevation of the left hemidiaphragm, new since previous radiograph. Probable small bilateral pleural effusions.
CT CAP 02/21/25- Circumferential anal wall thickening consistent with known malignancy versus posttreatment change. Probably stable. No evidence of metastatic disease. However, extremely limited exam without IV contrast. Tiny pericardial effusion.
Stable. Progressed small right and new tiny left pleural effusions. Findings suggesting moderate bilateral lower lobe and mild upper lobe pneumonia. New. Mild mediastinal lymphadenopathy. Probably reactive. Stable. Gallstones. Stable. Mild diffuse
bladder wall thickening. This can be seen with cystitis or bladder outlet obstruction. Improved.
Findings suggesting bilateral lower third spacing. Progressed
Echo 03/25/2025: Normal biventricular function with mildly dilated RV, moderate mitral stenosis, severe TR, PA pressure 66
Subjective Dataa
Subjective Data
Date of Service:
Date of Service: April 12, 2025
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
Subjective:
No complaints of worsening shortness of breath, required some pressors after Dilaudid was given, buttocks pain managed,
Review of Systems
General: Other (Per HPI)
Objective Data
Data Reviewed
Vital Signs / I&O / Oxygen:
Vital Signs
Temp Pulse Resp BP Pulse Ox
98.3 F 108 23 62/47 95
04/12/25 04:11 04/12/25 07:34 04/12/25 07:34 04/12/25 07:34 04/12/25 06:30
Intake and Output
04/11/25 04/12/25 04/13/25
06:59 06:59 06:59
Intake Total 2180.4 / 2253.6 2821.2 / 2821.2
Output Total 2390 / 2490 3330 / 3330
Balance -209.6 / -236.4 -508.8 / -508.8
SaO2 95
Nasal Cannula flow liters per 2
minute
Physical Exam
General: Respiratory Distress (n), Comfortable, Poor Appetite and Other (NAD)
HEENT: Normocephalic, Anicteric and Moist Mucous Membranes
Cardiovascular: Regular Rhythm
Respiratory: Wheeze (n), Crackles (n), Rhonchi (n), Non-Labored Respirations and Accessory Resp Muscle Use (n)
GI: Soft, Non Distended, Non Tender and Other (abdominal incisions are noted, drain with serous fluid)
Neurology: Awake, Alert and No Motor Deficits (Generally weak)
Skin: Warm, Good Color (Mild pallor), Cyanosis (n) and Jaundice (n)
Labs/Micro/Reports
Lab Data
04/12/25 03:39
04/12/25 03:39
[2025-04-12 08:28] LABS: Glucose - Point of Care 137 mg/dl (70-99)
--- NOTE | 2025-04-12 08:50 | W.PN.PLAS ---
Progress Note
Subjective Data
Improving, some complaints of pain
Objective Data
Vital Signs
Temp Pulse Resp BP Pulse Ox
98.3 F 108 23 62/47 95
04/12/25 04:11 04/12/25 07:34 04/12/25 07:34 04/12/25 07:34 04/12/25 06:30
Intake and Output
04/11/25 04/12/25 04/13/25
06:59 06:59 06:59
Intake Total 2180.4 / 2253.6 2821.2 / 2821.2
Output Total 2390 / 2490 3330 / 3330
Balance -209.6 / -236.4 -508.8 / -508.8
Intake:
Oral fluids 170 / 170 960 / 960
IV fluids (Total) 440.4 / 458.6 441.2 / 441.2
Amiodarone. 400.8 / 417.5 400.8 / 400.8
Insulin 39.6 / 41.1 40.4 / 40.4
IV piggybacks 250 / 250 100 / 100
TPN/PPN 1320 / 1375 1320 / 1320
Output:
Liquid stool amount 20 / 20 75 / 75
Colostomy 20 / 20 75 / 75
Drain Output (Total) 775 / 775 550 / 550
Left Lower Abdomen Pierce- 410 / 410 225 / 225
Hoover
Right Lower Abdomen Pierce- 235 / 235 250 / 250
Hoover B
Sacrum Pierce-Hoover C 130 / 130 75 / 75
Urine, Rogers 1595 / 1695 2705 / 2705
Physical exam:
No acute distress
No increased work of breathing
Abdominal incision remains in place with routine healing
Drain serosanguineous
Peroneal drain murky with fat necrosis, improving
Pressure related injury to the skin of the sacrum and perineum, incision remains intact
Lab Results
04/12/25 03:39
04/12/25 03:39
Wound Documentation
04/08/25 15:05 Wound Note by Radha Kelly
[facility] RN: Appliance changed today, daughter and sister in law at bedside. Stoma pale pink, slightly budded, for small amt of straw colored output. Peristomal skin is blotchy red in some areas. Yaneth seal and 2 3/4' flat wafer with pouch applied. Will
call [facility] for stoma powder to use next change. Teaching done with patient and family regarding appliance change, emptying and skin care. Answered all questions, supplies at bedside.
Initialized on 04/08/25 15:05 - END OF NOTE
Assessment / Plan
Status post myocutaneous flap reconstruction after APR, debridement and adjacent tissue transfer
Pressure offloading to the perineum Q1 hour position changes, pressure offloading mattress
Strip and record PRETTY drain output
Cont abx
Trend WBC, leukocytosis improving
[2025-04-12] MEDS: HEPARIN 5000 UNITS SC ×3 (09:29→23:33)
[2025-04-12] MEDS: PROTONIX IV 40 MG IV (09:30)
[2025-04-12] MEDS: NSS (PRESERVATIVE FREE) 10 ML IV (09:31)
[2025-04-12] MEDS: DESENEX/MITRAZOL/ZEASORB 1 APPLIC TOPICAL ×2 (09:31→20:35)
[2025-04-12 10:13] LABS: Glucose - Point of Care 176 mg/dl (70-99)
[2025-04-12] MEDS: NOVOLOG FLEXPEN 2 UNITS SC (11:06)
[2025-04-12] MEDS: DILAUDID 0.25 MG IV ×3 (11:46→20:34)
--- NOTE | 2025-04-12 12:00 | W.PN.GS2 ---
Today's Communication / Plan
-
TPN and clears
Assessment / Plan
-
74 yo female s/p adjunctive chemo now presenting for operative management of anal cancer
POD #15 RAL APR (CRS), vaginal defect repair with BIANKA/BSO (HEAD TRACK COACH) and VRAM flap (Plastics)
POD #9 Excisional Debridement to muscle [id number] of superficial necrotic tissue, adjacent tissue transfer [id number]
Tolerating clears, stoma functioning
H/H stable s/p 2 units FFP and 5 units PRBC's total this admit, last transfusion was on 03/31
Platelets still low but improved
Leukocytosis continues to trend down
Renal function stable
Afebrile, hypotensive and back on pressor (norepi), afib (on amio gtt)
Renal function stable, phosphorus replaced today
Hyperglycemia with initiation of TPN
Plan:
Continue on clears for now
Continue TPN with insulin gtt
Stoma nurse following for soma care
c/w PRETTY drains, follow outputs
IS while awake
Follow labs
Analgesics prn, Tylenol scheduled.
PPI for GI ppx
Heparin SQ for VTE ppx currently
Medical management as per ICU/medicine teams
OK for therapeutic AC if needed (IV heparin), but would hold off on PO agent until better bowel function.
Subjective Data
-
Date of Service: April 12, 2025
Pt seen and examined at bedside with Dr. Edmonds. Lisa n/v. Tolerating clears thus far. Hypotension overnight with resumption of pressors.
Objective Data
-
Intake and Output
04/11/25 04/12/25 04/13/25
06:59 06:59 06:59
Intake Total 2180.4 / 2253.6 2821.2 / 2892.9 496.5 / 496.5
Output Total 2390 / 2490 3330 / 3330 355 / 355
Balance -209.6 / -236.4 -508.8 / -437.1 141.5 / 141.5
Intake:
Oral fluids 170 / 170 960 / 960
IV fluids (Total) 440.4 / 458.6 441.2 / 457.9 221.5 / 221.5
Amiodarone. 400.8 / 417.5 400.8 / 417.5 83.5 / 83.5
Insulin 39.6 / 41.1 40.4 / 40.4
Neosyneprhrine 138 / 138
IV piggybacks 250 / 250 100 / 100
TPN/PPN 1320 / 1375 1320 / 1375 275 / 275
Output:
Liquid stool amount 20 / 20 75 / 75
Colostomy 20 / 20 75 / 75
Drain Output (Total) 775 / 775 550 / 550 105 / 105
Left Lower Abdomen Pierce- 410 / 410 225 / 225 40 / 40
Hoover
Right Lower Abdomen Pierce- 235 / 235 250 / 250 50 / 50
Hoover B
Sacrum Pierce-Hoover C 130 / 130 75 / 75 15 / 15
Urine, Brewer 1595 / 1695 2705 / 2705 250 / 250
Vital Signs
Temp Pulse Resp BP Pulse Ox
98.4 F 125 22 78/61 96
04/12/25 08:00 04/12/25 11:16 04/12/25 11:16 04/12/25 11:16 04/12/25 11:16
Lab Results
04/12/25 03:39
04/12/25 03:39
Calcium 8.0 mg/dl (8.4-10.2) L 04/12/25 03:39
Phosphorus 4.1 mg/dl (2.5-4.5) 04/12/25 03:39
Magnesium 2.0 mg/dl (1.6-2.3) 04/12/25 03:39
Total Bilirubin 1.6 mg/dl (0.2-1.3) H 04/09/25 03:30
Direct Bilirubin 0.8 mg/dl (0.0-0.4) H 04/06/25 03:30
AST 44 U/L (14-36) H 04/09/25 03:30
ALT 52 U/L (0-35) H 04/09/25 03:30
Alkaline Phosphatase 74 U/L (38-126) 04/09/25 03:30
Total Protein 4.6 g/dl (6.3-8.2) L 04/09/25 03:30
Albumin 2.0 g/dl (3.5-5.0) L 04/09/25 03:30
Physical Exam
-
NAD
ABD soft, expected incisional tenderness, nd
Stoma pink/viable, stool in appliance
PRETTY with SSF, Peroneal drain murky with fat necrosis
Brewer with horace urine
Patient has a brewer catheter: Yes
Patient has a central line: Yes
[2025-04-12 12:50] LABS: Glucose - Point of Care 284 mg/dl (70-99)
--- NOTE | 2025-04-12 12:53 | W.PN.HOSP.TC ---
Today's Communication/Plan
-
Clear liquid diet
Continue phenylephrine
Platelet improving.
Start heparin subcu
Assessment / Plan
Assessment / Plan
Impression:
Patient is a 74y F with PMH significant for A-Fib, CHF and anal cancer with recent recurrence who presented to on 03/28 for scheduled surgery for resection of recurrent malignancy. Patient underwent ureteroscopy with bilateral ureteral stents,
robotic APR, BIANKA / BSO, repair of vaginal defect and perineal reconstruction / flap on 03/28/25. She received 2 units PRBC and 1g TXA during the surgeries. Patient was successfully extubated post-op. She was on pressors post-op which were able to
be weaned, but have since been restarted at low dose to maintain adequate perfusion.
Medicine service was consulted for management of patient's multiple medical issues.
Patient Status post debridement on 04/03/2025 of flap to muscle. Pressure offloading per plastics surgery recs.
Worsening thrombocytopenia.
Heparin held, HIT antibody negative
Tolerating clear liquid
Assessment/plan:
Anal Cancer s/p Robotic APR, BIANKA/BSO, Repair of Vaginal Defect, Perineal Reconstruction / Flap
Concern for superficial necrosis of the flap
- Continue post-op care per surgical service(s). Pain control.
- Continue with NG tube. NGT clamping trial once with signs of ROBF.
- Pain control. OOB/activity per surgery post op.
- IV Ancef transition to Zosyn as below. Improvement in leukocytosis.
- Status post debridement on 04/03/2025 of flap to muscle. Pressure offloading per plastics surgery recs
- Patient now started on TPN.
04/10
Patient had BM.
Consider start trial of oral feeding if okay with surgery team
04/11
Start with clear liquid diet
04/12
Tolerating clear liquid diet
Acute Blood Loss Anemia
Shock likely secondary to hemorrhagic and hypovolemia
- Received 5 units PRBCs total thus far (and 1 g TXA) and 2units of FFP and 10mg of Vitamin K. Hemoglobin at 9
- Currently on low-dose phenylephrine for BP support - wean as able. Midodrine started
- IV ppi. IVF has been stopped.
- Follow H&H and transfuse additional blood products if needed. If persistent downtrend of hemoglobin may need to consider CT abdomen pelvis
- If persistent downtrend in platelets noted check fibrinogen, D-dimer. Low likelihood of DIC.
04/12
Patient back on pressor
Thrombocytopenia
Place dropped to 38
HIT at antibodies negative
Platelet count improved.
Heparin resumed
Leukocytosis
- Likely multifactorial due to reactive versus UTI versus pneumonia
- Ancef switched to Zosyn. Leukocytosis downtrending. up today but overall trending down.
04/08
Improved leukocytosis
Vasovagal episode on 04/04/2025
- Likely multifactorial in the setting of shock, atrial fibrillation, hypovolemia, fluid shift
- Blood pressure stabilized to some extent. Remains on pressors.
Persistent Atrial Fibrillation
- now in RVR. IV amiodarone started.
- Lopressor IV at low dose with holding parameters for BP.
- Eliquis on hold for surgery, blood loss, etc.
- Cardiology following
Anasarca likely secondary to iatrogenic fluid administration PRBC, FFP, IV fluids etc
- RUE venous doppler pending
- Patient has gained significant weight since admission
- Currently on 40 mg of IV Lasix. Monitor urinary output. May require additional diuresis however limiting factor due to hypotension
Transaminitis likely secondary to shock
- LFTs are improving.
Hypothermia
- Mild hypothermia post-op. Likely combination of anesthesia, blood loss, etc.
- resolved
Acute hypoxic respiratory insufficiency
- Wean O2 as tolerated.
Chronic HFpEF
- Hypotensive at present as noted above.
- Continue to follow accurate I/Os, daily weights, etc.
-
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
- Now started on IV insulin infusion per critical care glycemic protocol
- A1C was 5.7 on 03/26/25.
CKD III
- Stable. SCr is actually improved from prior baseline (1.3 compared to 1.6).
- Monitor urinary output.
Hypothyroidism
- TFTs normal in February of this year.
- Repeat TFTs given hypothermia- TSH wnl.
- Started on IV levothyroid
Hypocalcemia
Hypomagnesemia
Hypophosphatemia
Hypokalemia
-Replete and monitor
Mild hypernatremia
- Monitor for now. Improved
CODE STATUS: Full code
DVT prophylaxis: Heparin resumed
Diet: CLD
Disposition. Continue pressors.
Total time spent on today's encounter was 65 minutes which included time spent in counseling the patient/family regarding diagnosis and treatment plan as listed above, goals of care, and symptom management. Case was discussed with nursing staff,
specialists, and care coordinators/case management. All labs and imaging personally reviewed by me. Remainder the time spent in detailed review of previous records, lab data, imaging, and other medical provider documentation.
Anticipated Discharge: > 48 hours
Subjective/Interval History
-
Date of Service: April 12, 2025
Patient denies chest pain or shortness of breath.
Objective Data
-
Labs:
Laboratory Results
04/12/25
03:39
WBC 11.7 H
Hgb 8.9 L
Hct 28.7 L
Plt Count 66 L D
Sodium 144
Potassium 4.1
Chloride 115 H
Carbon Dioxide 23
BUN 65 H
Creatinine 1.4 H
Glucose 97
Calcium 8.0 L
Vital Signs:
Vital Signs
Temp Pulse Resp BP Pulse Ox
98.5 F 125 22 78/61 96
04/12/25 12:00 04/12/25 11:16 04/12/25 11:16 04/12/25 11:16 04/12/25 11:16
I&O
04/11/25 04/12/25 04/13/25
06:59 06:59 06:59
Intake Total 2180.4 / 2253.6 2821.2 / 2892.9 1192.2 / 1192.2
Output Total 2390 / 2490 3330 / 3330 355 / 355
Balance -209.6 / -236.4 -508.8 / -437.1 837.2 / 837.2
Physical Exam
-
General: Well Developed, Well Nourished and Obese
HEENT: Normocephalic, Atraumatic and Other (NG tube)
Respiratory: Rales and Non Labored Respirations
Cardiac: S1/S2 and Irregular Rhythm
Breast: Deferred by me
GI: Tender and Other (Drain at surgical site)
Genito-urinary: No Costovertebral Tender
Musculoskeletal: No Clubbing and No Cyanosis
Skin: Warm
Neuro: Awake, Alert, Oriented and AO x 3
Psych: Calm
--- NOTE | 2025-04-12 12:56 | RESPNOTE ---
patient refusing HS Bipap since 04/05/25. discussed with Dr. Scott, order discontinued.
--- NOTE | 2025-04-12 12:58 | PTCARENOTE ---
Pt AAOx3. Reports continuous pain to the buttocks. Frequent position changes and prn pain meds provided.
Afib HR 100-100s. Remains on Amiodarone and phenylephrine gtts.
Insulin gtt off for several hours this am but placed back on after pt ate her clear liquid tray.
All other assessment per charting.
[2025-04-12 13:58] LABS: Glucose - Point of Care 244 mg/dl (70-99)
[2025-04-12] MEDS: ROXICODONE 5 MG PO ×3 (13:59→22:43)
[2025-04-12 14:56] LABS: Glucose - Point of Care 227 mg/dl (70-99)
[2025-04-12 15:54] LABS: Glucose - Point of Care 164 mg/dl (70-99)
[2025-04-12] MEDS: TYLENOL 1000 MG PO ×2 (17:00→23:33)
--- NOTE | 2025-04-12 17:00 | PTCARENOTE ---
Pt ate broth, water ice and tea for breakfast. Refused lunch. 2 bowls of broth and givngerale ordered for dinner.
Pt very anxious at times related to pain. Continue to turn frequently and provide pain meds per order.
All other assessments unchanged.
[2025-04-12 17:16] LABS: Glucose - Point of Care 149 mg/dl (70-99)
[2025-04-12 18:37] LABS: Glucose - Point of Care 129 mg/dl (70-99)
--- NOTE | 2025-04-12 19:22 | W.PN.UPDATE ---
Update Note
Progress Note Update
Plastic surgery update note
Made aware that incision is beginning to dehisce. photos reviewed. Marginal necrosis with some minor midline dehiscense. Will need wound care consult, manage with local wound care for now.
She can no longer lay supine for fear of further pressure related wound breakdown. She needs to remain in bumped left or right lateral decubitus unless she is standing.
[2025-04-12 19:39] LABS: Glucose - Point of Care 127 mg/dl (70-99)
--- NOTE | 2025-04-12 20:00 | PTCARENOTE ---
Received pt. at 1900. Pt. currently awake. Drowsy, but oriented. C/o pains, PRN medication. See MAR. Afebrile. Heart rhythm afib. Neosynephrine gtt infusing to maintain MAP >65. Currently on 2L nasal cannula. Lungs sound diminished. Po diet clear
liquids. Okay appetite. Rogers catheter in place, draining without issue. Skin as documented. Vital signs stable at this time.
[2025-04-12] MEDS: Parenteral Nutrition, Central 1320 IV (20:36)
[2025-04-12 20:41] LABS: Glucose - Point of Care 127 mg/dl (70-99)
[2025-04-12 22:50] LABS: Glucose - Point of Care 135 mg/dl (70-99)
[2025-04-13] VITALS (53 sets, daily range): BP systolic 68–112; BP diastolic 40–91; BMI 39.9
--- NOTE | 2025-04-13 | PTCARENOTE ---
Pt. assessment unchanged. Remains on multiple ICU level drips. Titrating per protocol. Vital signs stable at this time.
[2025-04-13] MEDS: DILAUDID 0.25 MG IV ×5 (00:34→20:32)
[2025-04-13 00:42] LABS: Glucose - Point of Care 150 mg/dl (70-99)
[2025-04-13 02:42] LABS: Glucose - Point of Care 170 mg/dl (70-99)
[2025-04-13] MEDS: ROXICODONE 5 MG PO ×3 (03:12→18:22)
[2025-04-13 04:41] LABS: Glucose - Point of Care 153 mg/dl (70-99)
--- NOTE | 2025-04-13 05:00 | PTCARENOTE ---
Pt. assessment remains unchanged. AM labs drawn. Vital signs stable at this time.
[2025-04-13 05:07] LABS: Hematocrit 29.4 % (37.0-47.0); Hemoglobin 9.0 g/dL (12.0-16.0); Mean Corp Hgb Conc. 30.6 g/dL (33.0-37.0); Mean Corpuscular Volume 98.3 fL (81.0-99.0); Platelet Count 92 10^3/uL (130-400); Red Cell Dist. Width 23.1 % (11.5-14.5)
[2025-04-13 05:12] LABS: Blood Urea Nitrogen 71 mg/dl (7-17); Calcium 7.7 mg/dl (8.4-10.2); Carbon Dioxide 22 mmol/L (22-30); Chloride 112 mmol/L (98-107); Estimated Creatinine Clearance 35 ml/min; Glucose 150 mg/dl (70-99); Magnesium 2.1 mg/dl (1.6-2.3); Potassium 4.5 mmol/L (3.5-5.1); Sodium 140 mmol/L (135-145); eGFR 36.12
[2025-04-13] MEDS: SYNTHROID 150 MCG PO (05:18)
[2025-04-13] MEDS: TYLENOL 1000 MG PO ×3 (05:18→18:22)
[2025-04-13 06:34] LABS: Glucose - Point of Care 115 mg/dl (70-99)
[2025-04-13] MEDS: NOVOLOG FLEXPEN SC ×3 (08:27→17:55)
[2025-04-13] MEDS: DESENEX/MITRAZOL/ZEASORB 1 APPLIC TOPICAL ×2 (08:27→20:32)
[2025-04-13] MEDS: PROTONIX IV 40 MG IV (08:28)
[2025-04-13] MEDS: HEPARIN 5000 UNITS SC (08:28)
[2025-04-13] MEDS: NSS (PRESERVATIVE FREE) 10 ML IV (08:28)
[2025-04-13 08:41] LABS: Glucose - Point of Care 139 mg/dl (70-99)
--- NOTE | 2025-04-13 09:31 | W.PN.INTV ---
Today's Communication / Plan
Recommendations
Wean pressors
TPN/insulin drip-consider adding insulin to TPN bag daily depending on needs
Advance diet
Plastics following flap
Consider returning to full anticoagulation if no contraindications due to underlying atrial fibrillation-currently on subcu heparin for DVT prophylaxis-HIT pending-very low suspicion
Assessment
-
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
status post robotic abdominoperineal resection, BIANKA/BSO, VRAM flap perineal reconstruction, 03/28. Patient admitted to ICU postoperatively given significant blood loss, hypotension requiring pressors
Shock, hemorrhagic related to blood loss and likely post-op vasoplegia
Coagulopathy, suspect transfusion related. RUE negative for DVT
S/p robotic abdominoperineal resection, BIANKA/BSO, repair of vaginal defect, VRAM flap perineal reconstruction, 03/28/25
Concern for superficial necrosis of flap, s/p excisional debridement to muscle 10 x 30 cm with adjacent tissue transfer/ 04/03
OSMANY
Leukocytosis
Thrombocytopenia
Hyperkalemia
Hyperglycemia
Kleb UTI
Conditions present prior to admission
History of CKD stage IIIb
Diabetes
Anal squamous cell cancer, stage III
Diagnosed November 2023
s/p chemotherapy/radiation at [place]
Recurrence of disease per pelvic MRI January 2025
Follows oncology ([facility])
Atrial fibrillation on Eliquis
Now off amiodarone Per cardiology, remains on beta-joseph (Shadi)
Moderate pulm hypertension, echo March 2025, stable compared to prior echo
With dilated RV, normal function, PA pressure 66
Normal EF
Moderate mitral stenosis
History of stroke 1994 and again 2022 per patient
Suspected sleep apnea
Hypothyroidism
Plan:
Respiratory status remains stable-critically ill and back on pressors
Continue supplemental oxygen-currently on 2 L - 95% saturation
Refusing BiPAP-likely has obstructive sleep apnea
Aspiration precautions
Nebulizers if needed-currently not bronchospastic
Pressors as needed--Adam weaned off for 48 hours and then reinitiated 04/11/2025
Continue midodrine
Wean pressors
Monitor lactate if needed
Follow hemoglobin and platelet count
Transfuse as needed
HIT pending-low suspicion-low 4 T-score
With platelet counts improved heparin subcu reinitiated-hopefully cannot fully anticoagulate with history of atrial fibrillation in the next 24 hours-resume Eliquis
Cardiology following-correspondence reviewed
Amiodarone continues
Continue gentle IV diuresis
Monitor renal function, electrolytes, intake/output, lower extremity edema and weight
Replace electrolytes as needed
Echocardiogram 04/08/2025-EF 60-65%, moderate to severe tricuspid regurgitation, PA systolic 85
Atrial fibrillation rate control
Chronic heart failure preserved EF noted
Consider resumption of full anticoagulation if no bleeding and no further surgical procedures planned-currently already on DVT prophylaxis
Nasogastric tube will be removed 04/11/2025
Advance diet as tolerated
S/p robotic abdominoperineal resection, BIANKA/BSO, repair of vaginal defect, VRAM flap perineal reconstruction, 03/28/25
Complicated by blood loss, 1 L per OR records. TXA given intra-operatively
Colorectal surgery following-correspondence reviewed-Dr. Scott reviewed with colorectal surgery
TPN per surgery continues-discontinue when tolerating advance diet
Insulin drip continues per diabetic nurse practitioner management while on TPN-consider adding insulin to TPN bags
Cultures reviewed
Empiric antibiotics continues-finished a finite course of Zosyn-Will discontinue after today and observe off antibiotics
Monitor leukocytosis and temperature curve
Concern for superficial necrosis of flap-04/03/25-plastic surgery following
Wound care consult
Patient returned to OR for excisional debridement - followed by plastics
Monitor blood sugars closely
Insulin drip continues
Diabetic nurse practitioner following-correspondence reviewed-continue insulin infusion while on TPN
DVT prophylaxis--heparin held due to thrombocytopenia-now back on heparin subcu every 8 hours
GI prophylaxis-on Protonix
Nutrition per surgery
Bedside range of motion/eventual physical and Occupational Therapy
Eventual outpatient pulmonary/sleep disorders follow-up
Critical care statement: A total of 40 minutes of critical care time was provided for this patient today. This includes management of unstable vital signs, evaluation of the patient at bedside, reviewing the patient�s pertinent medical records
including radiographs, pressor management, microbiology, laboratory evaluations, and��discussion with primary team, consultants, pharmacy, nutrition, physical therapy, case management, charge nurse, critical care nursing, and respiratory therapy.
Data:
CXR 04/02/25- Low lung volumes with patchy bibasilar opacities, likely atelectasis and/or small effusion. No significant effusions or pneumothorax appreciated.
03/28/25- Nasogastric tube is present with tip near the gastroesophageal junction and distal sidehole in the distal esophagus. Consideration for advancement of this tube. Interstitial edema. Linear atelectasis in the right midlung. Mild to moderate
elevation of the left hemidiaphragm, new since previous radiograph. Probable small bilateral pleural effusions.
CT CAP 02/21/25- Circumferential anal wall thickening consistent with known malignancy versus posttreatment change. Probably stable. No evidence of metastatic disease. However, extremely limited exam without IV contrast. Tiny pericardial effusion.
Stable. Progressed small right and new tiny left pleural effusions. Findings suggesting moderate bilateral lower lobe and mild upper lobe pneumonia. New. Mild mediastinal lymphadenopathy. Probably reactive. Stable. Gallstones. Stable. Mild diffuse
bladder wall thickening. This can be seen with cystitis or bladder outlet obstruction. Improved.
Findings suggesting bilateral lower third spacing. Progressed
Echo 03/25/2025: Normal biventricular function with mildly dilated RV, moderate mitral stenosis, severe TR, PA pressure 66
Subjective Dataa
Subjective Data
Date of Service:
Date of Service: April 13, 2025
Chief Complaint: Innovation Manager Follow Up and Pulmonary Follow Up
Subjective:
Still with buttocks pain, still on some pressors, no complaints of worsening shortness of breath, chest congestion, productive cough, or chest pain
Review of Systems
General: Other (Per HPI)
Objective Data
Data Reviewed
Vital Signs / I&O / Oxygen:
Vital Signs
Temp Pulse Resp BP Pulse Ox
98.3 F 109 15 108/74 95
04/12/25 20:00 04/13/25 06:30 04/13/25 06:30 04/13/25 06:30 04/12/25 20:00
Intake and Output
04/12/25 04/13/25 04/14/25
06:59 06:59 06:59
Intake Total 2821.2 / 2892.9 3054.38 / 3145.28 181.8 / 181.8
Output Total 3330 / 3330 194 / 1940
Balance -508.8 / -437.1 1114.38 / 1205.28 181.8 / 181.8
SaO2 95
Nasal Cannula flow liters per 2
minute
Physical Exam
General: Respiratory Distress (n), Comfortable, Poor Appetite and Other (NAD)
HEENT: Normocephalic, Anicteric and Moist Mucous Membranes
Cardiovascular: Regular Rhythm
Respiratory: Wheeze (n), Crackles (n), Rhonchi (n), Non-Labored Respirations and Accessory Resp Muscle Use (n)
GI: Soft, Non Distended, Non Tender and Other (abdominal incisions are noted, drain with serous fluid)
Neurology: Awake, Alert and No Motor Deficits (Generally weak)
Skin: Warm, Good Color (Mild pallor), Cyanosis (n) and Jaundice (n)
Labs/Micro/Reports
Lab Data
04/13/25 04:31
04/13/25 04:31
[2025-04-13 10:14] LABS: Glucose - Point of Care 116 mg/dl (70-99)
[2025-04-13 10:25] LABS: Glucose - Point of Care 127 mg/dl (70-99)
--- NOTE | 2025-04-13 11:37 | W.PN.GS2 ---
Today's Communication / Plan
-
continue tpn
Assessment / Plan
-
74 yo female s/p adjunctive chemo now presenting for operative management of anal cancer
POD #16 RAL APR (CRS), vaginal defect repair with BIANKA/BSO (COMPENSATION VICE PRESIDENT) and VRAM flap (Plastics)
POD #10 Excisional Debridement to muscle [id number] of superficial necrotic tissue, adjacent tissue transfer [id number]
Tolerating clears, stoma functioning but low volumes
H/H stable s/p 2 units FFP and 5 units PRBC's total this admit, last transfusion was on 03/31
Platelets still low but improving
Leukocytosis continues to trend down although slowly
Renal function stable
Afebrile, tachycardic and hypotensive; on pressor (norepi), afib (on amio gtt)
Renal function stable
Hyperglycemia with initiation of TPN, on insulin gtt as per diabetes management team
Plan:
Continue on clears for now
Continue TPN with insulin gtt
Stoma nurse following for soma care
c/w PRETTY drains, follow outputs
IS while awake
Follow labs
Analgesics prn, Tylenol scheduled.
PPI for GI ppx
Heparin SQ for VTE ppx currently
Medical management as per ICU/medicine teams
OK for therapeutic AC if needed (IV heparin), but would hold off on PO agent until better bowel function.
Subjective Data
-
Date of Service: April 13, 2025
Pt seen and examined at bedside with Dr. Edmonds. Reports pain to backside, offloading to side. Denies n/v. Tolerating clears thus far. Remains on pressors.
Objective Data
-
Intake and Output
04/12/25 04/13/25 04/14/25
06:59 06:59 06:59
Intake Total 2821.2 / 2892.9 3054.38 / 3145.28 711.1 / 711.1
Output Total 3330 / 3330 1940 / 194
Balance -508.8 / -437.1 1114.38 / 1205.28 711.1 / 711.1
Intake:
Oral fluids 960 / 960 750 / 750 250 / 250
IV fluids (Total) 441.2 / 457.9 984.38 / 1020.28 186.1 / 186.1
Amiodarone. 400.8 / 417.5 400.88 / 417.58 83.5 / 83.5
Insulin 40.4 / 40.4 37.5 / 38.7 6.6 / 6.6
Neosyneprhrine 546 / 564 96 / 96
IV piggybacks 100 / 100
TPN/PPN 1320 / 1375 1320 / 1375 275 / 275
Output:
Liquid stool amount 75 / 75 150 / 150
Colostomy 75 / 75 150 / 150
Drain Output (Total) 550 / 550 565 / 565
Left Lower Abdomen Pierce- 225 / 225 260 / 260
Hoover
Right Lower Abdomen Pierce- 250 / 250 180 / 180
Hoover B
Sacrum Pierce-Hoover C 75 / 75 125 / 125
Urine, Brewer 2705 / 2705 625 / 625
Urine, Voided 600 / 600
Vital Signs
Temp Pulse Resp BP Pulse Ox
97.9 F 97 18 95/57 95
04/13/25 11:00 04/13/25 10:30 04/13/25 10:30 04/13/25 10:30 04/12/25 20:00
Lab Results
04/13/25 04:31
04/13/25 04:31
Calcium 7.7 mg/dl (8.4-10.2) L 04/13/25 04:31
Phosphorus 4.9 mg/dl (2.5-4.5) H 04/13/25 04:31
Magnesium 2.1 mg/dl (1.6-2.3) 04/13/25 04:31
Total Bilirubin 1.6 mg/dl (0.2-1.3) H 04/09/25 03:30
Direct Bilirubin 0.8 mg/dl (0.0-0.4) H 04/06/25 03:30
AST 44 U/L (14-36) H 04/09/25 03:30
ALT 52 U/L (0-35) H 04/09/25 03:30
Alkaline Phosphatase 74 U/L (38-126) 04/09/25 03:30
Total Protein 4.6 g/dl (6.3-8.2) L 04/09/25 03:30
Albumin 2.0 g/dl (3.5-5.0) L 04/09/25 03:30
Physical Exam
-
NAD
ABD soft, expected incisional tenderness, nd
Stoma pink/viable, stool in appliance
JPs with SSF, Peroneal drain murky with fat necrosis
Brewer with horace urine
Patient has a brewer catheter: Yes
Patient has a central line: Yes
--- NOTE | 2025-04-13 12:00 | PTCARENOTE ---
Pt drowsy today. Sleeping most of day. Pt reports feeling depressed. Pain appears to be better controlled today. Ate chicken broth for breakfast and lunch. All other assessments unchanged.
[2025-04-13] MEDS: NEO-SYNEPHRINE 250 IV ×3 (12:16→22:20)
[2025-04-13 12:26] LABS: Glucose - Point of Care 115 mg/dl (70-99)
--- NOTE | 2025-04-13 12:42 | W.PN.HOSP.TC ---
Today's Communication/Plan
-
Clear liquid diet
Continue phenylephrine
Platelet improving.
heparin subcu
Assessment / Plan
Assessment / Plan
Impression:
Patient is a 74y F with PMH significant for A-Fib, CHF and anal cancer with recent recurrence who presented to on 03/28 for scheduled surgery for resection of recurrent malignancy. Patient underwent ureteroscopy with bilateral ureteral stents,
robotic APR, BIANKA / BSO, repair of vaginal defect and perineal reconstruction / flap on 03/28/25. She received 2 units PRBC and 1g TXA during the surgeries. Patient was successfully extubated post-op. She was on pressors post-op which were able to
be weaned, but have since been restarted at low dose to maintain adequate perfusion.
Medicine service was consulted for management of patient's multiple medical issues.
Patient Status post debridement on 04/03/2025 of flap to muscle. Pressure offloading per plastics surgery recs.
Worsening thrombocytopenia.
Heparin held, HIT antibody negative
Tolerating clear liquid
Blood pressure dropped and back to pressors
Assessment/plan:
Anal Cancer s/p Robotic APR, BIANKA/BSO, Repair of Vaginal Defect, Perineal Reconstruction / Flap
Concern for superficial necrosis of the flap
- Continue post-op care per surgical service(s). Pain control.
- Continue with NG tube. NGT clamping trial once with signs of ROBF.
- Pain control. OOB/activity per surgery post op.
- IV Ancef transition to Zosyn as below. Improvement in leukocytosis.
- Status post debridement on 04/03/2025 of flap to muscle. Pressure offloading per plastics surgery recs
- Patient now started on TPN.
Tolerating clear liquid diet
Acute Blood Loss Anemia
Shock likely secondary to hemorrhagic and hypovolemia
- Received 5 units PRBCs total thus far (and 1 g TXA) and 2units of FFP and 10mg of Vitamin K. Hemoglobin at 9
- Currently on low-dose phenylephrine for BP support - wean as able. Midodrine started
- IV ppi. IVF has been stopped.
- Follow H&H and transfuse additional blood products if needed. If persistent downtrend of hemoglobin may need to consider CT abdomen pelvis
- If persistent downtrend in platelets noted check fibrinogen, D-dimer. Low likelihood of DIC.
04/12
Patient back on pressor
Thrombocytopenia
Place dropped to 38
HIT at antibodies negative
Platelet count improved.
Heparin resumed
Leukocytosis
- Likely multifactorial due to reactive versus UTI versus pneumonia
- Ancef switched to Zosyn. Leukocytosis downtrending. up today but overall trending down.
04/08
Improved leukocytosis
Vasovagal episode on 04/04/2025
- Likely multifactorial in the setting of shock, atrial fibrillation, hypovolemia, fluid shift
- Blood pressure stabilized to some extent. Remains on pressors.
Persistent Atrial Fibrillation
- now in RVR. IV amiodarone started.
- Lopressor IV at low dose with holding parameters for BP.
- Eliquis on hold for surgery, blood loss, etc.
- Cardiology following
Anasarca likely secondary to iatrogenic fluid administration PRBC, FFP, IV fluids etc
- RUE venous doppler pending
- Patient has gained significant weight since admission
- Currently on 40 mg of IV Lasix. Monitor urinary output. May require additional diuresis however limiting factor due to hypotension
Transaminitis likely secondary to shock
- LFTs are improving.
Hypothermia
- Mild hypothermia post-op. Likely combination of anesthesia, blood loss, etc.
- resolved
Acute hypoxic respiratory insufficiency
- Wean O2 as tolerated.
Chronic HFpEF
- Hypotensive at present as noted above.
- Continue to follow accurate I/Os, daily weights, etc.
-
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
- Now started on IV insulin infusion per critical care glycemic protocol
- A1C was 5.7 on 03/26/25.
CKD III
- Stable. SCr is actually improved from prior baseline (1.3 compared to 1.6).
- Monitor urinary output.
Hypothyroidism
- TFTs normal in February of this year.
- Repeat TFTs given hypothermia- TSH wnl.
- Started on IV levothyroid
Hypocalcemia
Hypomagnesemia
Hypophosphatemia
Hypokalemia
-Replete and monitor
Mild hypernatremia
- Monitor for now. Improved
CODE STATUS: Full code
DVT prophylaxis: Heparin resumed
Diet: CLD
Disposition. Continue pressors.
Total time spent on today's encounter was 65 minutes which included time spent in counseling the patient/family regarding diagnosis and treatment plan as listed above, goals of care, and symptom management. Case was discussed with nursing staff,
specialists, and care coordinators/case management. All labs and imaging personally reviewed by me. Remainder the time spent in detailed review of previous records, lab data, imaging, and other medical provider documentation.
Anticipated Discharge: > 48 hours
Subjective/Interval History
-
Date of Service: April 13, 2025
Patient denies chest pain or shortness of breath, back to pressors.
Objective Data
-
Labs:
Laboratory Results
04/13/25
04:31
WBC 11.4 H
Hgb 9.0 L
Hct 29.4 L
Plt Count 92 L D
Sodium 140
Potassium 4.5
Chloride 112 H
Carbon Dioxide 22
BUN 71 H
Creatinine 1.5 H
Glucose 150 H
Calcium 7.7 L
Vital Signs:
Vital Signs
Temp Pulse Resp BP Pulse Ox
97.9 F 97 18 95/57 95
04/13/25 11:00 04/13/25 10:30 04/13/25 10:30 04/13/25 10:30 04/12/25 20:00
I&O
04/12/25 04/13/25 04/14/25
06:59 06:59 06:59
Intake Total 2821.2 / 2892.9 3054.38 / 3145.28 711.1 / 711.1
Output Total 3330 / 3330 1939 / 1939
Balance -508.8 / -437.1 1114.38 / 1205.28 711.1 / 711.1
Physical Exam
-
General: Well Developed, Well Nourished and Obese
HEENT: Normocephalic, Atraumatic and Other (NG tube)
Respiratory: Rales and Non Labored Respirations
Cardiac: S1/S2 and Irregular Rhythm
Breast: Deferred by me
GI: Tender and Other (Drain at surgical site)
Genito-urinary: No Costovertebral Tender
Musculoskeletal: No Clubbing and No Cyanosis
Skin: Warm
Neuro: Awake, Alert, Oriented and AO x 3
Psych: Calm
--- NOTE | 2025-04-13 13:01 | W.PN.CD ---
Addendum entered and electronically signed by Mirta Barreto MD 04/13/25 15:57:
Surgical team actually okay with therapeutic heparin drip just not Eliquis. She may need to go back to the OR with plastic surgery this week.
Updated Dr. Scott as well.
Addendum entered and electronically signed by Mirta Barreto MD 04/13/25 15:25:
I saw and evaluated the patient with the resident. I was present for the daley portions of the history and exam and personally performed the MDM, including reviewing labs, assessing data, and directing management plan. I agree with the residents note
with my comments/adjustments below:
Daughter and sister at the bedside they reports she is very lethargic. She opens her eyes to her name but that is it. She has anasarca irregularly irregular rhythm normal S1-S2 lungs were clear anteriorly
Telemetry shows A-fib mostly in the 90s to low 100s.
#Shock: Still requiring large dose of Adam-Synephrine. Unclear etiology. Hemoglobin stable white count improving afebrile. She certainly has third spacing resulting in hypovolemia despite total body volume overload. However I did discuss with .
Tyler considering adrenal insufficiency given consistent pressor requirement.
#Persistent atrial fibrillation, will transition IV amiodarone to p.o. as she is tolerating p.o. She has been adequately loaded. We are using this for the rate control benefit given her persistent hypotension. Will need to consider if she will
ever be a candidate for Eliquis again. For now, continue to hold.
#Chronic HFpEF: Acute, most of her volume overload is due to third spacing. Does not tolerate diuresis.
Critical care time 31 minutes
Original Note:
Today's Communication / Plan
-
Transition to oral Amiodarone .
Wean Adam, as able, with MAP> 65.
Impression / Plan
-
#Hemorrhagic/hypovolemic shock
- s/p robotic abdominoperineal resection, repair of vaginal defect, robotic total laparoscopic hysterectomy, bilateral salpingo-oophorectomy, vertical rectus abdominis myocutaneous flap reconstruction of the perineum, cystoscopy and bilateral
ureteral stent insertion (03/28/25)
- post-op course complicated by hypotension requiring blood products, fluid, vasopressors
- s/p 5 U PRBC (4 on 03/28/2025 and 1 on 03/31/2025)
-Soft blood pressures 90s/50s
-Off of pressors on 04/11/2025, but resumed back on phenylephrine 100, wean as tolerated.
- Maintain MAP > 65.
#Persistent AFib
Telemetry reviewed
Heart rates in 97�1 21
using IV amiodarone drip b/c of BP and GI status
Will transition to oral amiodarone 200 mg
Will resume Eliquis, platelets at 94, if surgery is okay.
#Acute on Chronic HFpEF:
-also with moderate mitral stenosis, mod/severe TR, severe pulm HTN
- Now at 110 lbs down from 116.
- Patient appears volume overloaded, with bilateral upper and lower extremity edema. Patient back on phenylephrine, soft blood pressures, limiting diuretic use.
-re-assess in AM
- On NC 2L, wean as able.
Physical Exam
Vital Signs/Labs
Vital Signs
Temp Pulse Resp BP Pulse Ox
97.9 F 97 18 95/57 95
04/13/25 11:00 04/13/25 10:30 04/13/25 10:30 04/13/25 10:30 04/12/25 20:00
04/12/25 04/13/25 04/14/25
06:59 06:59 06:59
Actual Weight 216 lb 7.903 oz 210 lb 15.718 oz
04/13/25 04:31
04/13/25 04:31
PT 21.5 Sec (11.4-14.6) H 04/04/25 14:51
INR 1.85 04/04/25 14:51
APTT 32.1 Sec (23.4-35.0) 04/04/25 14:51
Magnesium 2.1 mg/dl (1.6-2.3) 04/13/25 04:31
Triglycerides 115 mg/dl (10-149) 04/07/25 03:10
Physical Exam
Cardiovascular: Rhythm/rate is irregular, Pedal edema present and S1S2 is normal
Respiratory: Crackles Present
GI: Soft, Normal bowel sounds and Other (on TPN)
Neuro/Psych: Alert, Oriented and AO x 3
Data Reviewed
-
Date of Service: April 13, 2025
[2025-04-13 13:18] LABS: Glucose - Point of Care 124 mg/dl (70-99)
[2025-04-13] MEDS: NOVOLIN R INSULIN INFUSION 100 IV (13:45)
--- NOTE | 2025-04-13 15:17 | W.PN.UPDATE ---
Update Note
Progress Note Update
Touch based with surgery , about Stuart. Would like to hold for now.
Will continue her on Hep SQ.
--- NOTE | 2025-04-13 15:21 | W.PN.UPDATE ---
Update Note
Progress Note Update
Plastic Surgery Note:
Patient may need operative intervention this week Please take this into consideration when starting AC .
[2025-04-13 15:30] LABS: Glucose - Point of Care 134 mg/dl (70-99)
[2025-04-13] MEDS: LR 500 IV (15:48)
--- NOTE | 2025-04-13 16:00 | PTCARENOTE ---
Increased pressor requirements. notified. 500ml bolus given per order. Heparin gtt started per order. Transitioned to PO Amiodarone. Remains on TPN and insulin gtt.
Pt drowsy but easily aroused. Attempted to wean O2. SpO2 87% on room air. Now 95-97% on 2L NC. All other assessments unchanged.
[2025-04-13] MEDS: PACERONE 200 MG PO (16:48)
[2025-04-13 16:57] LABS: Cortisol, Random 26.5 ug/dl
[2025-04-13 17:05] LABS: Hematocrit 28.8 % (37.0-47.0); Hemoglobin 8.9 g/dL (12.0-16.0); Mean Corp Hgb Conc. 30.9 g/dL (33.0-37.0); Mean Corpuscular Volume 98.6 fL (81.0-99.0); Platelet Count 94 10^3/uL (130-400); Red Cell Dist. Width 23.6 % (11.5-14.5)
[2025-04-13] MEDS: HEPARIN 25000 UNITS/250 ML IV (17:08)
[2025-04-13 17:10] LABS: APTT 53.0 Sec (23.4-35.0)
[2025-04-13 17:36] LABS: Normal RBC Morphology No
[2025-04-13 17:39] LABS: Anisocytosis 3+; Poikilocytosis 1+; Polychromasia 2+; Target Cells 1+
[2025-04-13 17:57] LABS: Glucose - Point of Care 112 mg/dl (70-99)
--- NOTE | 2025-04-13 20:00 | PTCARENOTE ---
Pt rec'd drowsy but easily arousable. A&Ox3. Uncomfortable w/ any repositioning. Weak upper extremities. Assist x 2 w/ repositioning. S1 S2 irregular w/ afib on monitor. +RP's. Weak DP's. +3 left hand edema w/ +2 generalized anasarca. Knee
hi SCD's on. On 2L N/C...sats 96%. Lungs diminished...right base w/ fine crackles...left 2/3 up w/ crackles. Encouraged coughing and deep breathing. Abdomen obese...+BS. LLQ colostomy (pink and budded) w/ liquid brown stool. Brewer draining
dark yellow urine...brewer care done. Skin pale in color. Sacral drsg changed on dayshift and intact. Mid line incision...open at bottom. Bilateral PRETTY's and right buttock PRETTY noted. Right arm purple in color...elevated on pillow...some serous
fluid noted. Right SQ port w/ heparin and merrill gtts infusing. Left DL PICC w/ TPN and insulin gtts infusing. See interventions. VS documented. On rotation bed. Will continue to monitor closely.
[2025-04-13 20:12] LABS: Glucose - Point of Care 133 mg/dl (70-99)
[2025-04-13] MEDS: Parenteral Nutrition, Central 1310 IV (21:27)
[2025-04-13 22:05] LABS: Glucose - Point of Care 150 mg/dl (70-99)
[2025-04-13 22:42] LABS: APTT 75.6 Sec (23.4-35.0)
[2025-04-14] VITALS (47 sets, daily range): BP systolic 72–118; BP diastolic 29–91; PULSE 100–103; O2SAT 99–100; BMI 41.8
--- NOTE | 2025-04-14 | PTCARENOTE ---
No major changes in physical assessment. Pt struggles w/ repositioning and discomfort. PRN pain meds provided...see MAR. Reviewed importance of repositioning and coughing/deep breathing. Sats 96-97% on 2L N/C.
[2025-04-14] MEDS: TYLENOL 1000 MG PO ×3 (00:13→11:59)
[2025-04-14 00:14] LABS: Glucose - Point of Care 161 mg/dl (70-99)
[2025-04-14] MEDS: ROXICODONE 5 MG PO ×4 (01:28→21:50)
[2025-04-14 02:15] LABS: Glucose - Point of Care 129 mg/dl (70-99)
[2025-04-14] MEDS: NEO-SYNEPHRINE 250 IV ×2 (02:50→07:34)
[2025-04-14] MEDS: DILAUDID 0.25 MG IV ×2 (03:44→08:17)
--- NOTE | 2025-04-14 04:00 | PTCARENOTE ---
Pain meds required thru night for bilateral buttock pain and/or whole body pain....see OCT. Struggles w/ repositioning...orthopneic. No major changes in physical assessment. Remains on merrill, insulin, heparin and TPN. CHG bath and weight
completed. Safe environment confirmed.
[2025-04-14 04:08] LABS: Glucose - Point of Care 119 mg/dl (70-99)
[2025-04-14] MEDS: SYNTHROID 150 MCG PO (05:21)
[2025-04-14 05:39] LABS: APTT 98.9 Sec (23.4-35.0)
[2025-04-14 05:50] LABS: Hematocrit 28.7 % (37.0-47.0); Hemoglobin 8.9 g/dL (12.0-16.0); Mean Corp Hgb Conc. 31.0 g/dL (33.0-37.0); Mean Corpuscular Volume 98.0 fL (81.0-99.0); Platelet Count 94 10^3/uL (130-400); Red Cell Dist. Width 23.2 % (11.5-14.5)
[2025-04-14 06:10] LABS: Glucose - Point of Care 126 mg/dl (70-99)
[2025-04-14 06:36] LABS: ALT (SGPT) 19 U/L (0-35); AST (SGOT) 29 U/L (14-36); Albumin 2.0 g/dl (3.5-5.0); Alkaline Phosphatase 78 U/L (38-126); Blood Urea Nitrogen 78 mg/dl (7-17); Calcium 7.6 mg/dl (8.4-10.2); Carbon Dioxide 20 mmol/L (22-30); Chloride 110 mmol/L (98-107); Estimated Creatinine Clearance 33 ml/min; Glucose 111 mg/dl (70-99); Magnesium 2.1 mg/dl (1.6-2.3); Potassium 4.8 mmol/L (3.5-5.1); Sodium 137 mmol/L (135-145); Total Protein 4.9 g/dl (6.3-8.2); Triglycerides 92 mg/dl (10-149); eGFR 33.42
--- NOTE | 2025-04-14 08:00 | PTCARENOTE ---
Pt rec'd from night RN, drowsy but arousable, AOx3. C/o pain 7/10 in buttock and abdomen. Pt states she feels 'lousy.' Medicated with PRN Dilaudid per orders. Pt turned frequently from side to side, lateral bumped position per orders with support of
gel cushion and pillow. Pt with generalized anasarca +2, weeping extremeties. Albumin ordered and given. Pt uncomfortable with turning and crying out. Emotional support provided. Pt with heparin, insulin, phenylephrine, and TPN infusing. See
flowsheet. Pt with right chest wall SQ port, left DL PICC. Pt able to swallow pills whole with liquid. CLD ordered, pt consumed chicken broth for breakfast. Poor appetite. Pt with 3 PRETTY drains, abdominal and perineal wounds as documented. All wound
care performed. Rogers in place draining yellow urine. Rogers care and oral care also provided. WOC FLOWER Ng in room to change ostomy appliance. Pt's bp soft, see worklist, weak PP, lungs with fine crackles on left, irregular HR, afib on tele in
low 100s at this time. Plan discussed with space controller and all consultants. Wound care orders clarified by Dr. Chen. Safe environment continues, pt resting quietly s/p Roxicodone administration, states she feels slightly better. Call chaves in reach.
--- NOTE | 2025-04-14 08:13 | W.PN.CD ---
Addendum entered and electronically signed by Andrade Hsu MD 04/14/25 12:15:
I saw and examined the patient.
The Dr Nelson's note was reviewed and I agree with the note and it accurately reflects our care.
I personally performed the medical decision making of the this encounter and my assessment and plan is below:
Comment: Indu remains critically ill requiring vasopressor support. Unfortunately, from a cardiovascular perspective we are continuing supportive care and she will likely need diuresis at some point.
- Agree with albumin and ongoing vasopressor support.
- She is on a heparin drip in anticipation of possible surgery this week
- Heart rates are reasonably controlled
- WBC steadily increased over last few days; consider infectious work up
Original Note:
Today's Communication / Plan
-
Continue phenylephrine, wean as tolerated, maintaining MAP >65.
Continue albumin
Continue amiodarone
Continue heparin GTT
Impression / Plan
-
#Hemorrhagic/hypovolemic shock
- s/p robotic abdominoperineal resection, repair of vaginal defect, robotic total laparoscopic hysterectomy, bilateral salpingo-oophorectomy, vertical rectus abdominis myocutaneous flap reconstruction of the perineum, cystoscopy and bilateral
ureteral stent insertion (03/28/25)
- post-op course complicated by hypotension requiring blood products, fluids, vasopressors
- s/p 5 U PRBC (4 on 03/28/2025 and 1 on 03/31/2025)
-Soft blood pressures 90s/50s
-Off of pressors on 04/11/2025, but resumed back on phenylephrine, currently at 180, wean as tolerated.
- Maintain MAP > 65.
- Check serum cortisol for any adrenal insufficiency, random cortisol at 26.5.
- Patient likely third spacing, started on albumin. Patient cannot tolerate diuresis due to hypotension/pressor requirements.
#Persistent AFib
Telemetry reviewed
Heart rates in 90�110s, still in A-fib
Transitioned to oral amiodarone 200 mg, continue.
Continue heparin GTT
Patient needs surgical intervention sometime this week, so cannot resume Eliquis.
#Acute on Chronic HFpEF:
-Echo 04/08/2025�EF 60 to 65%,
-also with moderate mitral stenosis, mod/severe TR, severe pulm HTN
- Now up at 220 lbs > 210
- Patient appears volume overloaded, with bilateral upper and lower extremity edema. Patient back on phenylephrine, soft blood pressures, limiting diuretic use.
- On NC 3L, wean as able.
Physical Exam
Vital Signs/Labs
Vital Signs
Temp Pulse Resp BP Pulse Ox
98.3 F 104 17 111/75 96
04/14/25 03:44 04/14/25 06:38 04/14/25 06:38 04/14/25 06:38 04/14/25 05:00
04/13/25 04/14/25 04/15/25
06:59 06:59 06:59
Actual Weight 210 lb 15.718 oz 220 lb 14.451 oz
04/14/25 05:18
04/14/25 05:18
PT 21.5 Sec (11.4-14.6) H 04/04/25 14:51
INR 1.85 04/04/25 14:51
APTT 98.9 Sec (23.4-35.0) H 04/14/25 05:18
Magnesium 2.1 mg/dl (1.6-2.3) 04/14/25 05:18
Triglycerides 92 mg/dl (10-149) 04/14/25 05:18
04/14/25
05:18
[id number] Pept > 00112
Physical Exam
Constitutional: No acute distress
Cardiovascular: Rhythm/rate is irregular and Pedal edema present
Respiratory: Crackles Present (Mild basal crackles bilateral)
GI: Soft and Other (Incision sites CDI, PRETTY drains with serous fluid.)
Neuro/Psych: Alert, Oriented and AO x 3
Data Reviewed
-
Date of Service: April 14, 2025
[2025-04-14] MEDS: NOVOLOG FLEXPEN SC (08:16)
[2025-04-14] MEDS: PACERONE 200 MG PO (08:20)
[2025-04-14] MEDS: DESENEX/MITRAZOL/ZEASORB 1 APPLIC TOPICAL ×2 (08:21→21:20)
[2025-04-14] MEDS: NSS (PRESERVATIVE FREE) 10 ML IV (08:21)
[2025-04-14] MEDS: PROTONIX IV 40 MG IV (08:21)
[2025-04-14 08:27] LABS: Glucose - Point of Care 124 mg/dl (70-99)
[2025-04-14] MEDS: FLEXBUMIN 100 IV ×3 (08:28→19:50)
--- NOTE | 2025-04-14 08:33 | PN.DE.MGMTRT ---
Insulin Management
- -
04/14/2025: Diabetes Management Follow up
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 PMH anal sq. cell CA, pacemaker, diabetes, hypothyroid, obesity, a fib, HTN, ASCVD/CVA, HCL. Prior to admission was taking Tresiba 8 units @ HS with
glyburide 2.5 mg daily. States she has had diabetes 20 years, has glucose monitor. States she only took the glipizide if her glucose was > 135. A1C 5.7%, cr 1.4, eGFR 39.23-->1.6, eGFR 33.42 today.
Patient is awake and alert, oriented, resting in bed, states she feels vert weak, able to discuss diabetes care.
Patient still receiving TPN, on the critical care glycemic protocol. Current Glucose range 119 to 161, receiving 1.2 to 1.7 units of insulin per hour.
Will transition to subcutaneous insulin. Give Lantus 10 units now and turn drip off 1 hr after giving Lantus
Start NovoLog 4 units Q 6 hrs and low corrective Q6hrs.
Closely monitor glucose trend while on TPN, will restart glycemic protocol if necessary.
Discussed with nurse. Will cont to follow.
Diabetes History
- -
Type of Diabetes: 2 requiring insulin
Pre-Admission Diabetes Regimen
04/14/25
05:18
Creatinine 1.6 H
Lab Results
Hemoglobin A1c 5.7 % (4.0-5.6) H 03/26/25 10:51
Insulin Pump Settings
IP Diabetes Regimen
04/13/25 04/13/25 04/13/25
08:26 10:03 10:14
Glucose
POC Glucose 139 H 116 H 127 H
04/13/25 04/13/25 04/13/25
12:15 12:56 15:18
Glucose
POC Glucose 115 H 124 H 134 H
04/13/25 04/13/25 04/13/25
17:46 20:01 21:54
Glucose
POC Glucose 112 H 133 H 150 H
04/14/25 04/14/25 04/14/25
00:03 02:04 03:57
Glucose
POC Glucose 161 H 129 H 119 H
04/14/25 04/14/25 04/14/25
05:18 05:59 08:16
Glucose 111 H
POC Glucose 126 H 124 H
Patient Education
[2025-04-14 09:40] LABS: Glucose - Point of Care 70 mg/dl (70-99)
--- NOTE | 2025-04-14 09:40 | W.PN.INTV ---
Today's Communication / Plan
Recommendations
Plan reviewed with attending.
Off insulin drip. Sliding scale and basal insulin started
CT A/P
Weight up. Holding diuretics in setting of hypotension
Dilaudid stopped. Gabapentin and oxycodone started.
Assessment
-
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
status post robotic abdominoperineal resection, BIANKA/BSO, VRAM flap perineal reconstruction, 03/28. Patient admitted to ICU postoperatively given significant blood loss, hypotension requiring pressors.
Since last week, pt has gone up on pressor needs with growing leukocytosis, worsened pain control, and fluid retention.
Shock, hemorrhagic related to blood loss and likely post-op vasoplegia
Coagulopathy, suspect transfusion related. RUE negative for DVT
S/p robotic abdominoperineal resection, BIANKA/BSO, repair of vaginal defect, VRAM flap perineal reconstruction, 03/28/25
Concern for superficial necrosis of flap, s/p excisional debridement to muscle 10 x 30 cm with adjacent tissue transfer/ 04/03
OSMANY
Leukocytosis
Thrombocytopenia
Hyperkalemia
Hyperglycemia
Kleb UTI
Conditions present prior to admission
History of CKD stage IIIb
Diabetes
Anal squamous cell cancer, stage III
Diagnosed November 2023
s/p chemotherapy/radiation at [place]
Recurrence of disease per pelvic MRI January 2025
Follows oncology ([facility])
Atrial fibrillation on Eliquis
Now off amiodarone Per cardiology, remains on beta-joseph (Shadi)
Moderate pulm hypertension, echo March 2025, stable compared to prior echo
With dilated RV, normal function, PA pressure 66
Normal EF
Moderate mitral stenosis
History of stroke 1994 and again 2022 per patient
Suspected sleep apnea
Hypothyroidism
Plan:
Plan:
Neuro:
Extubated and weaned off sedation
Rass goal 0
Pain control: ofrimev. PRN dilaudid switched to oxycodone. Gabapentin started.
Cardio:
Shock, hemorrhagic related to blood loss and likely post-op vasoplegia. Continues on midodrine 10mg with increasing pressor need.
Suspect RVR with A fib also contributing to hypotension and difficulty weaning of Levophed.
Eliquis on hold in view of bleeding.
Amiodarone bolus and infusion started 04/02, Cardiology consult, tachycardia better controlled. Amiodarone drip transitioned to PO.
Chronic HFpEF - f/u CXR stable
Continue telemetry monitoring
Echo 04/08 demonstrated PASP 85 prior 66
Pulm:
Remains on low supplemental o2, wean to off. Currently 2L
Encourage out of bed, I-S
Aspiration precautions
GI:
Diet advanced to clears. Tolerating PO with continued poor appetite.
Increased ostomy output.
S/p robotic abdominoperineal resection, BIANKA/BSO, repair of vaginal defect, VRAM flap perineal reconstruction, 03/28/25
Continues TPN pending PO intake
Colorectal following
PRETTY drains output purulent drainage.
Increasing abdominal pain.
Increasing Tbili. Gallstones noted on CT earlier in admission. Concern for possible biliary etiology.
ID:
Was on ancef for kleb UTI. Increased WBC and broadened abx--on zosyn. Day 7 zosyn with improved leukocytosis ended 04/11. Increasing leukocytosis.
Patient returned to OR for excisional debridement - followed by plastics. Flap evaluated by surgeons today.
Heme:
Coagulopathy, suspect transfusion related
INR noted to be elevated, gave vitamin K 10 mg IV 03/31. Fresh frozen plasma, 2 units, IV calcium given for hypocalcemia 03/31
If additional blood transfusion needed will give FFP and platelets along with PRBC
Follow CBC. Hgb and plts stable.
HIT panel negative
Plts elevated above 50, resuming DVT prophylaxis. Continues on heparin drip with possibility of returning to OR.
:
Mild OSMANY - Decreased urine out put, dry mouth, also hypotensive. Weight up.
Hold diuretics in setting of hypotension. Monitor for output
s/p > 2 ltr LR and Albumin 04/06. Albumin given today 04/14
Follow creat, IOs.
Replete electrolytes as needed
Endocrine:
Stopped insulin drip. Sliding scale and basal insulin started
accu checks q1
DVT prophylaxis: SCDs in place. Heparin started.
GI prophylaxis: Protonix
Data:
CXR 04/02/25- Low lung volumes with patchy bibasilar opacities, likely atelectasis and/or small effusion. No significant effusions or pneumothorax appreciated.
03/28/25- Nasogastric tube is present with tip near the gastroesophageal junction and distal sidehole in the distal esophagus. Consideration for advancement of this tube. Interstitial edema. Linear atelectasis in the right midlung. Mild to moderate
elevation of the left hemidiaphragm, new since previous radiograph. Probable small bilateral pleural effusions.
CT CAP 02/21/25- Circumferential anal wall thickening consistent with known malignancy versus posttreatment change. Probably stable. No evidence of metastatic disease. However, extremely limited exam without IV contrast. Tiny pericardial effusion.
Stable. Progressed small right and new tiny left pleural effusions. Findings suggesting moderate bilateral lower lobe and mild upper lobe pneumonia. New. Mild mediastinal lymphadenopathy. Probably reactive. Stable. Gallstones. Stable. Mild diffuse
bladder wall thickening. This can be seen with cystitis or bladder outlet obstruction. Improved.
Findings suggesting bilateral lower third spacing. Progressed
Echo 03/25/2025: Normal biventricular function with mildly dilated RV, moderate mitral stenosis, severe TR, PA pressure 66
Subjective Dataa
Subjective Data
Date of Service:
Date of Service: April 14, 2025
Chief Complaint: Director Of Retail Follow Up and Pulmonary Follow Up
Objective Data
Data Reviewed
Vital Signs / I&O / Oxygen:
Vital Signs
Temp Pulse Resp BP Pulse Ox
97.6 F 107 28 101/49 96
04/14/25 08:00 04/14/25 09:17 04/14/25 09:17 04/14/25 09:17 04/14/25 09:29
Intake and Output
04/13/25 04/14/25 04/15/25
06:59 06:59 06:59
Intake Total 3054.38 / 3145.28 3976.9 / 4097.1 700.6 / 700.6
Output Total 1940 / 1940 1280 / 1280 370 / 370
Balance 1114.38 / 1205.28 2696.9 / 2817.1 330.6 / 330.6
SaO2 96
Nasal Cannula flow liters per 2
minute
Physical Exam
General: Respiratory Distress (n), Comfortable, Poor Appetite and Other (NAD)
HEENT: Normocephalic, Anicteric and Moist Mucous Membranes
Cardiovascular: Regular Rhythm
Respiratory: Clear and Non-Labored Respirations
GI: Soft, Non Distended, Tender (localized RUQ pain and tenderness) and Other (abdominal incisions are noted, drain with serous fluid)
Neurology: Awake, Alert and No Motor Deficits (Generally weak)
Skin: Warm and Good Color (Mild pallor)
Labs/Micro/Reports
Lab Data
04/14/25 05:18
04/14/25 05:18
Laboratory Results
04/13/25 04/13/25 04/14/25
16:47 22:26 05:18
APTT 53.0 H 75.6 H 98.9 H
[2025-04-14] MEDS: LANTUS 0.1 UNITS SC (09:49)
--- NOTE | 2025-04-14 09:51 | PTCARENOTE ---
Per discussion and plan with diabetic management, Lantus given at this time. Will stop insulin gtt in one hour. BG check at this time 94.
--- NOTE | 2025-04-14 09:53 | WOUNDNOTE ---
[facility] RN note: Patient's colostomy appliance changed using Laurel wafer # [id number], Yaneth seal and Roddy pouch # [id number]. Stoma pale pink with slight mucocutaneous separation distally. +Peristomal rash (suspect yeast rash). Peristomal rash treated
with miconazole powder followed by no sting barrier wipe. Small liquid brown stool in removed pouch. Midline incision scabbed and approximated. Skin on heels blanchable mild red. Protective foam applied to heels. Patient is propped on a L lateral
side position (Z odnna fluidized cushion being used). RN Shanna stated she changed shaina/sacral dressing and mentioned it is jacinto colored. Shanna stated the local care is ABD pad and foam dressing. Helenaa stated she will clarify perineal flap care with
surgeon. Patient may have further surgery to this area as per surgeon's note. Patient is on a Total care air bed. Heels off bed with pillows. Bariatric air chair cushion in room. Next ostomy appliance change due or Monday. Will follow as
needed.
[2025-04-14 10:00] LABS: Glucose - Point of Care 94 mg/dl (70-99)
--- NOTE | 2025-04-14 10:07 | WOUNDNOTE ---
Updated Dr. Bradford and JAQUI Sampson re: distal peristomal mucocutaneous separation and peristomal rash (treated with miconazole powder). Dr. Bradford confirmed if leakage becomes an issue with flat wafer with Yaneth seal, may try soft convex wafer
if needed. Appliance has been holding with flat wafer so far. t/c SPD and ordered more ostomy supplies.
[2025-04-14 11:53] LABS: Glucose - Point of Care 96 mg/dl (70-99)
--- NOTE | 2025-04-14 11:56 | W.PN.CRS1 ---
Today's Communication / Plan
-
fulls
megace
likely OR on Monday with Gustavo
Assessment/Plan
-
74 yo female s/p adjunctive chemo now presenting for operative management of anal cancer
POD #17 RAL APR (CRS), vaginal defect repair with BIANKA/BSO (BABY COUNSELOR) and VRAM flap (Plastics)
POD #11 Excisional Debridement to muscle [id number] of superficial necrotic tissue, adjacent tissue transfer [id number]
Tolerating clears, stoma functioning but low volumes
H/H stable s/p 2 units FFP and 5 units PRBC's total this admit, last transfusion was on 03/31
Platelets still low but improving 94 (94, 92)
Afebrile, tachycardic and hypotensive; on pressor (norepi), afib (on amio gtt)
Renal function stable
Hyperglycemia with initiation of TPN, on insulin gtt as per diabetes management team
Plan:
-Advance to full liquids. Will add Megace for appetite stimulant.
-Continue TPN with insulin gtt
-Stoma nurse following for soma care
-c/w PRETTY drains, follow outputs
-IS while awake
-Follow labs
-Analgesics prn, Tylenol scheduled.
-PPI for GI ppx
-Heparin SQ for VTE ppx currently
-Medical management as per ICU/medicine teams
-Tentative plan with DR. Chen this monday
-OKay for heparin gtt, hold on Eliquis due to OR on Monday
Subjective Data
Subjective Data
Date of Service: April 14, 2025
Patient states she doesn't feel much like eating. Her pain is controlled. Denies nausea or vomiting.
Objective Data
-
Vital Signs
Temp Pulse Resp BP Pulse Ox
97.6 F 105 15 82/55 99
04/14/25 08:00 04/14/25 11:31 04/14/25 11:31 04/14/25 11:31 04/14/25 11:31
Intake & Output
04/13/25 04/14/25 04/15/25
06:59 06:59 06:59
Intake Total 3054.38 / 3145.28 3976.9 / 4097.1 939.8 / 939.8
Output Total 1940 / 1940 1280 / 1280 370 / 370
Balance 1114.38 / 1205.28 2696.9 / 2817.1 569.8 / 569.8
Intake:
Oral fluids 750 / 750 750 / 750 240 / 240
IV fluids (Total) 984.38 / 1020.28 1406.9 / 1472.1 424.8 / 424.8
Amiodarone. 400.88 / 417.58 183.7 / 183.7
Heparin 130 / 140 50 / 50
Insulin 37.5 / 38.7 33.2 / 34.4 4.8 / 4.8
Neosyneprhrine 546 / 564 1060 / 1114 270 / 270
albumin 100 / 100
IV piggybacks 500 / 500
TPN/PPN 1320 / 1375 1320 / 1375 275 / 275
Output:
Liquid stool amount 150 / 150
Colostomy 150 / 150
Drain Output (Total) 565 / 565 455 / 455 120 / 120
Left Lower Abdomen Pierce- 260 / 260 145 / 145 20 / 20
Hoover
Right Lower Abdomen Pierce- 180 / 180 210 / 210 80 / 80
Hoover B
Sacrum Pierce-Hoover C 125 / 125 100 / 100 20 / 20
Urine, Rogers 625 / 625 825 / 825 250 / 250
Urine, Voided 600 / 600
Lab Results
04/14/25 05:18
04/14/25 05:18
Physical Exam
-
General: No Acute Distress and AOx3
Abdomen: Soft, Non Distended, Non Tender and Other (colostomy warm and pink)
Skin: Warm and Dry
Incision: Clear, Dry, Intact
[2025-04-14] MEDS: NEO-SYNEPHRINE 1% 260 MG IV (11:59)
[2025-04-14] MEDS: NEURONTIN 100 MG PO ×2 (11:59→19:53)
[2025-04-14] MEDS: OMNIPAQUE 50 ML PO (12:00)
[2025-04-14] MEDS: NOVOLOG FLEXPEN 4 UNITS SC ×2 (12:01→17:49)
--- NOTE | 2025-04-14 12:09 | PTCARENOTE ---
double conc phenylephrine hung at this time. first cup oral contrast started.
[2025-04-14] MEDS: NOVOLOG FLEXPEN-LOW RESISTANCE SC (12:14)
[2025-04-14] MEDS: PITRESSIN 100 IV ×2 (12:58→22:44)
--- NOTE | 2025-04-14 13:00 | PTCARENOTE ---
Pitressin initiated at this time per orders. see MAR.
--- NOTE | 2025-04-14 13:11 | W.PN.HOSP.TC ---
Today's Communication/Plan
-
CT abdomen pelvis pending
Continue with heparin drip
On pressors. Wean as tolerated
Monitor p.o. intake. Remains on TPN.
Monitor WBC count closely
Pain meds adjusted
Assessment / Plan
Assessment / Plan
General: Well Developed, Well Nourished and Obese
HEENT: Normocephalic, Atraumatic and Other (NG tube)
Respiratory: Rales and Non Labored Respirations
Cardiac: S1/S2 and Irregular Rhythm
Breast: Deferred by me
GI: Tender and Other (Drain at surgical site)
Genito-urinary: No Costovertebral Tender
Musculoskeletal: No Clubbing and No Cyanosis
Skin: Warm
Neuro: Awake, Alert, Oriented and AO x 3
Psych: Calm
Impression:
Patient is a 74y F with PMH significant for A-Fib, CHF and anal cancer with recent recurrence who presented to on 03/28 for scheduled surgery for resection of recurrent malignancy. Patient underwent ureteroscopy with bilateral ureteral stents,
robotic APR, BIANKA / BSO, repair of vaginal defect and perineal reconstruction / flap on 03/28/25. She received 2 units PRBC and 1g TXA during the surgeries. Patient was successfully extubated post-op. She was on pressors post-op which were able to
be weaned, but have since been restarted at low dose to maintain adequate perfusion.
Medicine service was consulted for management of patient's multiple medical issues.
Patient Status post debridement on 04/03/2025 of flap to muscle. Pressure offloading per plastics surgery recs.
Worsening thrombocytopenia.
Heparin held, HIT antibody negative
Tolerating clear liquid
Blood pressure dropped and back to pressors
Assessment/plan:
Anal Cancer s/p Robotic APR, BIANKA/BSO, Repair of Vaginal Defect, Perineal Reconstruction / Flap
Concern for superficial necrosis of the flap
- Continue post-op care per surgical service(s). Pain control.
- Pain control. OOB/activity per surgery post op.
- IV Ancef transition to Zosyn as below. WBC now uptrendeing
- Status post debridement on 04/03/2025 of flap to muscle. Pressure offloading per plastics surgery recs
- Patient now started on TPN.
- Diet advanced to fulls.
- Plan for possible OR again on later this week by plastic surgery.
- WBC uptrending and plan for CT abd/pelvis with po contrast only today.
Acute Blood Loss Anemia
Shock likely secondary to hemorrhagic and hypovolemia
- Received 5 units PRBCs total thus far (and 1 g TXA) and 2units of FFP and 10mg of Vitamin K. Hemoglobin at 8.9
- Currently on phenylephrine and vasopressin for BP support - wean as able. Midodrine 10mg TID. Albumin IV infusion trial.
- IV ppi. IVF has been stopped.
- Follow H&H and transfuse additional blood products if needed.
- CT scan abd/pelvis
- On high dose of midodrine. Wean pressors as Bp allows but remains difficult.
Thrombocytopenia
Place dropped to 38
HIT at antibodies negative
Platelet count improved.
Heparin resumed
Vasovagal episode on 04/04/2025
- Likely multifactorial in the setting of shock, atrial fibrillation, hypovolemia, fluid shift
- Blood pressure stabilized to some extent. Remains on pressors.
Persistent Atrial Fibrillation
- now in RVR. IV amiodarone has been transition to po 200mg daily. Hep gtt started. Plan to hold on start Eliquis as plan for surgery this week.
- Lopressor IV at low dose with holding parameters for BP.
- Eliquis on hold for surgery, blood loss, etc.
- Cardiology following
Anasarca likely secondary to iatrogenic fluid administration PRBC, FFP, IV fluids
- RUE venous doppler negative
- Patient has gained significant weight since admission
- May require additional diuresis however limiting factor due to hypotension
Acute on chronic HFpEF
Severe pulmonary hypertension
- Diuresis has been difficult due to hypotension and pressor requirement
- Did receive Lasix earlier in the hospitalization.
- Cardiology following
Transaminitis likely secondary to shock
- LFTs are improved
Hypothermia
- Mild hypothermia post-op. Likely combination of anesthesia, blood loss, etc.
- resolved
Acute hypoxic respiratory insufficiency
- Wean O2 as tolerated.
Chronic HFpEF
- Hypotensive at present as noted above.
- Continue to follow accurate I/Os, daily weights, etc.
-
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
- Now started on IV insulin infusion per critical care glycemic protocol
- A1C was 5.7 on 03/26/25.
CKD III
- Stable. SCr is actually improved from prior baseline (1.3 compared to 1.6).
- Monitor urinary output.
Hypothyroidism
- TFTs normal in February of this year.
- Repeat TFTs given hypothermia- TSH wnl.
- Off IV synthroid. Cont w/home dose 150mcg
Hypocalcemia
Hypomagnesemia
Hypophosphatemia
Hypokalemia
-Replete and monitor
Mild hypernatremia
- Monitor for now. Improved
CODE STATUS: Full code
DVT prophylaxis: Heparin resumed
d/w with client solutions manager
Anticipated Discharge: > 48 hours
Subjective/Interval History
-
Date of Service: April 14, 2025
Patient back on pressors as with hypotension
Gaining weight
Objective Data
-
Labs:
Laboratory Results
04/14/25
05:18
WBC 14.7 H
Hgb 8.9 L
Hct 28.7 L
Plt Count 94 L
APTT 98.9 H
Sodium 137
Potassium 4.8
Chloride 110 H
Carbon Dioxide 20 L
BUN 78 H
Creatinine 1.6 H
Glucose 111 H
Calcium 7.6 L
Total Bilirubin 1.9 H
AST 29
ALT 19
Alkaline Phosphatase 78
Vital Signs:
Vital Signs
Temp Pulse Resp BP Pulse Ox
97.3 F 105 15 82/55 99
04/14/25 12:00 04/14/25 11:31 04/14/25 11:31 04/14/25 11:31 04/14/25 11:31
I&O
04/13/25 04/14/25 04/15/25
06:59 06:59 06:59
Intake Total 3054.38 / 3145.28 3976.9 / 4097.1 1612.8 / 1612.8
Output Total 1940 / 1940 1280 / 1280 440 / 440
Balance 1114.38 / 1205.28 2696.9 / 2817.1 1172.8 / 1172.8
Data Reviewed
-
Total Time Spent with Patient (in minutes): 58
[2025-04-14] MEDS: MEGACE 20 MG PO (13:53)
--- NOTE | 2025-04-14 14:05 | PTCARENOTE ---
Phenylephrine titrated up to 200 mcg/min for MAP of 59. Pt states she is not in pain at this time. Remains drowsy but arousable.
--- NOTE | 2025-04-14 15:01 | CM ---
Increased pressor needs, fluid retention, hypotensive episodes, leukocytosis, off insulin gtt. Discharge POC: SNF. Referrals previously forwarded.
[2025-04-14] MEDS: HEPARIN 25000 UNITS/250 ML IV (15:11)
[2025-04-14] MEDS: TYLENOL PO (17:00)
[2025-04-14] MEDS: NOVOLOG FLEXPEN-LOW RESISTANCE 1 UNITS SC (17:49)
--- NOTE | 2025-04-14 17:50 | PTCARENOTE ---
Pt's rear PRETTY drain leaking around insertion site, dressing again changed for saturation of purulent fluid.
[2025-04-14 17:57] LABS: Glucose - Point of Care 152 mg/dl (70-99)
[2025-04-14] MEDS: BUMEX 2 MG IV (18:33)
--- NOTE | 2025-04-14 18:35 | PTCARENOTE ---
2 mg Bumex ordered by Dr. Cintron and administered at this time.
[2025-04-14 21:19] LABS: Glucose - Point of Care 165 mg/dl (70-99)
[2025-04-14] MEDS: Parenteral Nutrition, Central 1320 IV (21:19)
[2025-04-14 23:28] LABS: Glucose - Point of Care 184 mg/dl (70-99)
[2025-04-15] VITALS (38 sets, daily range): BP systolic 73–124; BP diastolic 33–99; BMI 43.3
[2025-04-15] MEDS: NOVOLOG FLEXPEN 4 UNITS SC ×2 (00:15→05:21)
[2025-04-15] MEDS: NOVOLOG FLEXPEN-LOW RESISTANCE 1 UNITS SC ×2 (00:16→18:59)
[2025-04-15] MEDS: TYLENOL 1000 MG PO ×2 (00:16→05:21)
--- NOTE | 2025-04-15 00:24 | PTCARENOTE ---
[facility]14/[facility] c/o pain to abdomen and back, PRN medication given. patient turned and repositioned q2 hr to be off her buttocks. PRETTY drains patent and draining serosanguineous fluid, 3 rd dose of albumin given, abdominal
and gluteal dressings dry and intact. brewer patent for straw colored urine. new TPN bag hung with new lines/filter.
[2025-04-15] MEDS: ROXICODONE 5 MG PO ×4 (01:22→10:25)
[2025-04-15 04:02] LABS: Hematocrit 26.5 % (37.0-47.0); Hemoglobin 8.0 g/dL (12.0-16.0); Mean Corp Hgb Conc. 30.2 g/dL (33.0-37.0); Mean Corpuscular Volume 106.9 fL (81.0-99.0); Nucleated Red Blood Cells % 2.5 %; Platelet Count 89 10^3/uL (130-400); Red Cell Dist. Width 23.3 % (11.5-14.5)
[2025-04-15] MEDS: NEO-SYNEPHRINE 1% 260 MG IV ×2 (04:24→14:47)
--- NOTE | 2025-04-15 05:06 | PTCARENOTE ---
patient have less response to pain medication, c/o pain with RTC tylenol and PRN gilmer. patient given extra dose of prn gilmer inbetween two PRN doses, patient having better results and getting some sleep.
[2025-04-15 05:20] LABS: APTT 70.8 Sec (23.4-35.0)
[2025-04-15] MEDS: NOVOLOG FLEXPEN-LOW RESISTANCE 2 UNITS SC (05:21)
[2025-04-15] MEDS: SYNTHROID 150 MCG PO (05:21)
[2025-04-15 05:31] LABS: Glucose - Point of Care 200 mg/dl (70-99)
[2025-04-15 05:59] LABS: ALT (SGPT) 14 U/L (0-35); AST (SGOT) 26 U/L (14-36); Albumin 3.0 g/dl (3.5-5.0); Alkaline Phosphatase 68 U/L (38-126); Blood Urea Nitrogen 85 mg/dl (7-17); Calcium 8.1 mg/dl (8.4-10.2); Carbon Dioxide 19 mmol/L (22-30); Chloride 106 mmol/L (98-107); Estimated Creatinine Clearance 29 ml/min; Glucose 212 mg/dl (70-99); LDH 347 U/L (120-246); Potassium 4.8 mmol/L (3.5-5.1); Sodium 135 mmol/L (135-145); Total Protein 5.8 g/dl (6.3-8.2); eGFR 29.02
[2025-04-15] MEDS: PITRESSIN 100 IV ×3 (06:39→22:43)
[2025-04-15] MEDS: NEURONTIN 100 MG PO ×2 (07:49→19:58)
[2025-04-15] MEDS: PACERONE 200 MG PO (07:49)
--- NOTE | 2025-04-15 07:49 | PN.DE.MGMTRT ---
Insulin Management
- -
04/15/2025: Diabetes Management Follow up
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 PMH anal sq. cell CA, pacemaker, diabetes, hypothyroid, obesity, a fib, HTN, ASCVD/CVA, HCL. Prior to admission was taking Tresiba 8 units @ HS with
glyburide 2.5 mg daily. States she has had diabetes 20 years, has glucose monitor. States she only took the glipizide if her glucose was > 135. A1C 5.7%, cr 1.4, eGFR 39.23-->1.6, eGFR 33.42 today.
Patient is awake and alert, oriented, resting in bed, states she feels very weak, c/o chest pain, to have EKG.
Patient still receiving TPN,
Yesterday, received Lantus 10 units with 4 units novolog Q 6 hours and low corrective.
Patient is advanced to full liquids, will novolog to AC. Glucose up to 184. Will increase novolog to 5 units and change to AC with low corrective. Will continue 10 units lantus in AM.
Closely monitor glucose trend while on TPN, will restart glycemic protocol if necessary.
Discussed with nurse. Will cont to follow.
Diabetes History
- -
Type of Diabetes: 2 requiring insulin
Pre-Admission Diabetes Regimen
04/15/25 04/15/25
03:52 05:11
Creatinine Cancelled 1.8 H
Lab Results
Hemoglobin A1c 5.7 % (4.0-5.6) H 03/26/25 10:51
Insulin Pump Settings
IP Diabetes Regimen
04/11/25 04/14/25 04/14/25
16:19 08:16 09:48
Glucose
POC Glucose 70 124 H 94
04/14/25 04/14/25 04/14/25
11:42 17:45 21:07
Glucose
POC Glucose 96 152 H 165 H
04/14/25 04/15/25 04/15/25
23:12 03:52 05:11
Glucose Cancelled 212 H
POC Glucose 184 H
04/15/25
05:19
Glucose
POC Glucose 200 H
Meal type: Dinner
Meal type: Lunch
Meal type: Breakfast
Amount consumed: Patient refused
Amount consumed: 0
Amount consumed: 50%
Patient Education
[2025-04-15] MEDS: NSS (PRESERVATIVE FREE) 10 ML IV (07:50)
[2025-04-15] MEDS: PROTONIX IV 40 MG IV (07:50)
[2025-04-15] MEDS: MEGACE 20 MG PO (07:50)
[2025-04-15] MEDS: LANTUS 0.1 UNITS SC (08:04)
[2025-04-15] MEDS: DESENEX/MITRAZOL/ZEASORB 1 APPLIC TOPICAL ×2 (08:29→19:58)
--- NOTE | 2025-04-15 08:37 | W.PN.INTV ---
Today's Communication / Plan
Recommendations
Plan reveiwed with attending
- Increased WOB, pleural effusions on Ct, worsening renal function possibly in setting of fluid overload. Give 80mg lasix today
- Plan for a line to better monitor pressures
- Abd US today
- Pain management:stopped PO tylenol. Increase oxy 5mg to 10mg. Continue gabapentin
Assessment
-
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
status post robotic abdominoperineal resection, BIANKA/BSO, VRAM flap perineal reconstruction, 03/28. Patient admitted to ICU postoperatively given significant blood loss, hypotension requiring pressors.
Since last week, pt has gone up on pressor needs with stable leukocytosis, worsened pain control, and fluid retention. This morning complaining of SOB and chest pressure. She reports she has abdominal pain with deep breaths. Draining purulent fluid
in rectal PRETTY.
Shock, hemorrhagic related to blood loss and likely post-op vasoplegia
Coagulopathy, suspect transfusion related. RUE negative for DVT
S/p robotic abdominoperineal resection, BIANKA/BSO, repair of vaginal defect, VRAM flap perineal reconstruction, 03/28/25
Concern for superficial necrosis of flap, s/p excisional debridement to muscle 10 x 30 cm with adjacent tissue transfer/ 04/03
OSMANY
Leukocytosis
Thrombocytopenia
Hyperkalemia
Hyperglycemia
Kleb UTI
Conditions present prior to admission
History of CKD stage IIIb
Diabetes
Anal squamous cell cancer, stage III
Diagnosed November 2023
s/p chemotherapy/radiation at [place]
Recurrence of disease per pelvic MRI January 2025
Follows oncology ([facility])
Atrial fibrillation on Eliquis
Now off amiodarone Per cardiology, remains on beta-joseph (Krakowski)
Moderate pulm hypertension, echo March 2025, stable compared to prior echo
With dilated RV, normal function, PA pressure
Normal EF
Moderate mitral stenosis
History of stroke 1994 and again 2022 per patient
Suspected sleep apnea
Hypothyroidism
Plan:
Neuro:
Extubated and weaned off sedation
Rass goal 0
Pain control: Oxycodone 5mg increased to 10mg. Gabapentin
Cardio:
Shock, hemorrhagic related to blood loss and likely post-op vasoplegia. Continues on midodrine 10mg with increasing pressor need vasopressin 0.04 phenylephrine 160
Suspect RVR with A fib also contributing to hypotension and difficulty weaning of Levophed.
Eliquis on hold in view of bleeding.
Amiodarone bolus and infusion started 04/02, Cardiology consult, tachycardia better controlled. Amiodarone drip transitioned to PO.
Chronic HFpEF - f/u CXR stable
Continue telemetry monitoring
Echo 04/08 demonstrated PASP 85 prior
EKG 04/15 demonstrated no changes. Low suspicion for cardiac history with diffuse body pain since surgery.
Pulm:
Remains on low supplemental o2, wean to off. Currently 4L. Became tachypneic today with chest pain.
Increased pleural effusions noted on CT and pulmonary vascular engorgement
Encourage out of bed, I-S
Aspiration precautions
GI:
Diet advanced to clears. Tolerating PO with continued poor appetite.
Increased ostomy output.
S/p robotic abdominoperineal resection, BIANKA/BSO, repair of vaginal defect, VRAM flap perineal reconstruction, 03/28/25
Continues TPN pending PO intake
Colorectal following
PRETTY drains output purulent drainage.
Increasing abdominal pain.
Increasing Tbili. Gallstones noted on CT earlier in admission. Concern for possible biliary etiology. Abdominal US today.
ID:
Was on ancef for kleb UTI. Increased WBC and broadened abx--on zosyn. Day 7/ zosyn with improved leukocytosis ended 04/11. Stable WBC
Patient returned to OR for excisional debridement - followed by plastics. Flap evaluated by surgeons today.
Heme:
Coagulopathy, suspect transfusion related
INR noted to be elevated, gave vitamin K 10 mg IV 03/31. Fresh frozen plasma, 2 units, IV calcium given for hypocalcemia 03/31
If additional blood transfusion needed will give FFP and platelets along with PRBC
Follow CBC. Hgb and plts stable.
HIT panel negative
Plts elevated above 50, resuming DVT prophylaxis. Continues on heparin drip with possibility of returning to OR.
:
Mild OSMANY - Decreased urine out put, dry mouth, also hypotensive. Weight up.
Diuretics today 80mg lasix. Monitor for output
s/p > 2 ltr LR and Albumin 04/06. Albumin given today 04/14
Follow creat, IOs.
Replete electrolytes as needed
Endocrine:
Stopped insulin drip. Sliding scale and basal insulin started
accu checks q1
DVT prophylaxis: SCDs in place. Heparin started.
GI prophylaxis: Protonix
Data:
CXR 04/02/25- Low lung volumes with patchy bibasilar opacities, likely atelectasis and/or small effusion. No significant effusions or pneumothorax appreciated.
03/28/25- Nasogastric tube is present with tip near the gastroesophageal junction and distal sidehole in the distal esophagus. Consideration for advancement of this tube. Interstitial edema. Linear atelectasis in the right midlung. Mild to moderate
elevation of the left hemidiaphragm, new since previous radiograph. Probable small bilateral pleural effusions.
CT CAP 02/21/25- Circumferential anal wall thickening consistent with known malignancy versus posttreatment change. Probably stable. No evidence of metastatic disease. However, extremely limited exam without IV contrast. Tiny pericardial effusion.
Stable. Progressed small right and new tiny left pleural effusions. Findings suggesting moderate bilateral lower lobe and mild upper lobe pneumonia. New. Mild mediastinal lymphadenopathy. Probably reactive. Stable. Gallstones. Stable. Mild diffuse
bladder wall thickening. This can be seen with cystitis or bladder outlet obstruction. Improved.
Findings suggesting bilateral lower third spacing. Progressed
Echo 03/25/2025: Normal biventricular function with mildly dilated RV, moderate mitral stenosis, severe TR, PA pressure 66
Subjective Dataa
Subjective Data
Date of Service:
Date of Service: April 15, 2025
Chief Complaint: [employer] Follow Up and Pulmonary Follow Up
Subjective:
Pt reports pain with deep breaths. She reports the gabapentin and oxycodone help the pain but it is still not fully controlled. She describes it as crushing chest pain since yesterday.
Objective Data
Data Reviewed
Vital Signs / I&O / Oxygen:
Vital Signs
Temp Pulse Resp BP Pulse Ox
97.9 F 91 28 101/63 97
04/15/25 07:45 04/15/25 08:30 04/15/25 08:30 04/15/25 08:26 04/15/25 08:30
Intake and Output
04/14/25 04/15/25 04/16/25
06:59 06:59 06:59
Intake Total 3976.9 / 4097.1 3540.8 / 3648.8 404 / 404
Output Total 1280 / 1280 2395 / 2395 150 / 150
Balance 2696.9 / 2817.1 1145.8 / 1253.8 254 / 254
SaO2 97
Nasal Cannula flow liters per 2
minute
Physical Exam
General: Respiratory Distress (n), Comfortable, Poor Appetite and Other (NAD)
HEENT: Normocephalic, Anicteric and Moist Mucous Membranes
Cardiovascular: Regular Rhythm
Respiratory: Wheeze, Crackles, Rhonchi and Non-Labored Respirations (tachypenic)
GI: Soft, Non Distended, Tender (diffuse tenderness) and Other (abdominal incisions are noted, drain with purulent fluid)
Neurology: Awake, Alert and No Motor Deficits (Generally weak)
Skin: Warm, Good Color (Mild pallor) and Other (yellow sloughing of bottom, edematous third spacing in all 4 extremities)
Labs/Micro/Reports
Lab Data
04/15/25 03:52
04/15/25 05:11
Laboratory Results
04/15/25
04:54
APTT 70.8 H
--- NOTE | 2025-04-15 08:50 | W.PN.PLAS ---
Today's Communication
-
No plan for OR this week, will manage with pressure offloading and dressing changes
Progress Note
Subjective Data
Complaining of chest pain this morning, nurse to get EKG
Objective Data
Vital Signs
Temp Pulse Resp BP Pulse Ox
97.9 F 91 28 101/63 97
04/15/25 07:45 04/15/25 08:30 04/15/25 08:30 04/15/25 08:26 04/15/25 08:30
Intake and Output
04/14/25 04/15/25 04/16/25
06:59 06:59 06:59
Intake Total 3976.9 / 4097.1 3540.8 / 3648.8 404 / 404
Output Total 1280 / 1280 2395 / 2395 150 / 150
Balance 2696.9 / 2817.1 1145.8 / 1253.8 254 / 254
Intake:
Oral fluids 750 / 750 960 / 960 200 / 200
IV fluids (Total) 1406.9 / 1472.1 1315.8 / 1368.8 94 / 94
Amiodarone. 183.7 / 183.7
Double concentrated 531 / 561 48 / 48
Neosynephrine
Heparin 130 / 140 230 / 241 22 / 22
Insulin 33.2 / 34.4 4.8 / 4.8
Neosyneprhrine 1060 / 1114 270 / 270
Vasopressin 180 / 192 24 / 24
albumin 100 / 100
IV piggybacks 500 / 500
TPN/PPN 1320 / 1375 1265 / 1320 110 / 110
Output:
Liquid stool amount 525 / 525
Colostomy 525 / 525
Drain Output (Total) 455 / 455 625 / 625
Left Lower Abdomen Pierce- 145 / 145 195 / 195
Hoover
Right Lower Abdomen Pierce- 210 / 210 310 / 310
Hoover B
Sacrum Pierce-Hoover C 100 / 100 120 / 120
Urine, Rogers 825 / 825 875 / 875
Urine, Voided 370 / 370 150 / 150
Physical exam:
Labored breathing but communicative and interactive
Alert
Abdominal incisional wounds intact
PRETTY drains with serous fluid, anterior
Sacral PRETTY With output consistent with fat necrosis
Superficial wound dehiscence with a perineal wound
Lab Results
04/15/25 03:52
04/15/25 05:11
Wound Documentation
04/14/25 10:07 Wound Note by Berenice Mathew
Updated Dr. Bradford and JAQUI Sampson re: distal peristomal mucocutaneous separation and peristomal rash (treated with miconazole powder). Dr. Bradford confirmed if leakage becomes an issue with flat wafer with Yaneth seal, may try soft convex wafer
if needed. Appliance has been holding with flat wafer so far. t/c SPD and ordered more ostomy supplies.
Initialized on 04/14/25 10:07 - END OF NOTE
Assessment / Plan
Status post APR, history of radiation, VRAM flap reconstruction requiring superficial debridement and closure
Pressure related breakdown of the sacral wound, superficial
CT scan without evidence of concern necessitating urgent operative intervention. Leukocytosis continues to downtrend
At present, the risk of anesthesia appears significantly greater than her wound burden. Will continue to follow to assess fluid status. She is having active chest pain and will undergo an EKG today highlighting her comorbid state and the risk of
further operative intervention. Will manage sacral wound with wet-to-dry dressing changes
Pressure offloading remains paramount to her healing, needs to stay bumped in a lateral decubitus position
[2025-04-15] MEDS: MORPHINE SULFATE 2 MG IV (09:16)
[2025-04-15] MEDS: NOVOLOG FLEXPEN 5 UNITS SC (09:21)
--- NOTE | 2025-04-15 09:22 | PTCARENOTE ---
Pt c/o SOB this am. 97% on 2L NC. Dropped to 90% when HOB flat. Now 100% on 4L NC. Report improvement on SOB. C/o chest pain. EKG done. Toponin sent. Morphine given per order. Pt reports improvement in chest pain. Pt also reports
abdominal pain, which is increased with HOB lower (reported as 'pulling' sensation). Also c/o buttocks pain and right thigh pain. Reports Oxycodone provides little relief.
[2025-04-15 09:31] LABS: Glucose - Point of Care 174 mg/dl (70-99)
[2025-04-15 09:42] LABS: Troponin I < 0.012 ng/ml
--- NOTE | 2025-04-15 09:55 | W.PN.CD ---
Today's Communication / Plan
-
80 mg IV lasix
cont pressure support
remains in AF and on heparin gtt
Impression / Plan
-
#Hemorrhagic/hypovolemic shock
- s/p robotic abdominoperineal resection, repair of vaginal defect, robotic total laparoscopic hysterectomy, bilateral salpingo-oophorectomy, vertical rectus abdominis myocutaneous flap reconstruction of the perineum, cystoscopy and bilateral
ureteral stent insertion (03/28/25)
- post-op course complicated by hypotension requiring blood products, fluids, vasopressors
- s/p 5 U PRBC (4 on 03/28/2025 and 1 on 03/31/2025)
-Requiring BP support on phenylephrine weaning as tolerated
- Maintain MAP > 65.
- random cortisol normal
- Patient likely third spacing, started on albumin. Ongoing increased weights will give lasix 80 mg IV
#Persistent AFib
Telemetry reviewed
Heart rates in 90�110s, still in A-fib
Transitioned to oral amiodarone 200 mg, continue.
Continue heparin GTT
Patient needs surgical intervention sometime this week, so cannot resume Eliquis.
#Acute on Chronic HFpEF:
-Echo 04/08/2025�EF 60 to 65%,
-also with moderate mitral stenosis, mod/severe TR, severe pulm HTN
- Now up at 220 lbs > 210
- Patient appears volume overloaded, with bilateral upper and lower extremity edema. Patient back on phenylephrine, soft blood pressures, will try lasix 80 mg IV.
- On NC 3L, wean as able.
Physical Exam
Vital Signs/Labs
Vital Signs
Temp Pulse Resp BP Pulse Ox
97.9 F 93 22 94/83 99
04/15/25 07:45 04/15/25 09:07 04/15/25 09:07 04/15/25 09:07 04/15/25 09:07
04/14/25 04/15/25 04/16/25
06:59 06:59 06:59
Actual Weight 220 lb 14.451 oz 228 lb 13.437 oz
04/15/25 03:52
04/15/25 05:11
PT 21.5 Sec (11.4-14.6) H 04/04/25 14:51
INR 1.85 04/04/25 14:51
APTT 70.8 Sec (23.4-35.0) H 04/15/25 04:54
Magnesium 2.1 mg/dl (1.6-2.3) 04/14/25 05:18
Triglycerides 92 mg/dl (10-149) 04/14/25 05:18
04/14/25
05:18
Cot-G-Rzreajumhii Pept > 13971
LAB Results
04/15/25
09:04
Troponin I < 0.012
Physical Exam
Constitutional: No acute distress and Other (chronically ill appearing)
Cardiovascular: Rhythm/rate is irregular and Pedal edema present
Respiratory: Respiratory effort normal and Crackles Present
GI: Soft
Neuro/Psych: Alert and Oriented
Data Reviewed
-
Date of Service: April 15, 2025
Medical Decision Making: Reviewed Test Results
EKG: Tracing Personally Visualized and interpreted (af)
Echo: Report Reviewed by me
Labs: Labs Reviewed by me
Critical Care Time (in minutes): 33
--- NOTE | 2025-04-15 10:24 | W.PN.CRS1 ---
Today's Communication / Plan
-
advance to low residue
continue tpn
Assessment/Plan
-
74 yo female s/p adjunctive chemo now presenting for operative management of anal cancer
POD #18 RAL APR (CRS), vaginal defect repair with BIANKA/BSO ([employer]) and VRAM flap (Plastics)
POD #12 Excisional Debridement to muscle [id number] of superficial necrotic tissue, adjacent tissue transfer [id number]
Tolerating clears, stoma functioning but low volumes
H/H stable s/p 2 units FFP and 5 units PRBC's total this admit, last transfusion was on 03/31
Platelets still low but improving 89 (94, 94, 92)
Afebrile, tachycardic and hypotensive; on pressor (norepi), afib (on amio gtt)
Renal function stable
Hyperglycemia with initiation of TPN, on insulin gtt as per diabetes management team
Plan:
-Advance to low residue. Will add Megace for appetite stimulant.
-Continue TPN with insulin gtt
-Stoma nurse following for soma care
-c/w PRETTY drains, follow outputs
-IS while awake
-Follow labs
-Analgesics prn, Tylenol scheduled.
-PPI for GI ppx
-Heparin SQ for VTE ppx currently
-Medical management as per ICU/medicine teams
-OR canceled for now
-On a heparin gtt
Subjective Data
Subjective Data
Date of Service: April 15, 2025
Patient states she feels okay. She has no complaints. She denies nausea or vomiting.
Objective Data
-
Vital Signs
Temp Pulse Resp BP Pulse Ox
97.9 F 93 22 94/83 99
04/15/25 07:45 04/15/25 09:07 04/15/25 09:07 04/15/25 09:07 09/09/25 09:07
Intake & Output
04/14/25 04/15/25 04/16/25
06:59 06:59 06:59
Intake Total 3976.9 / 4097.1 3540.8 / 3648.8 602 / 602
Output Total 1280 / 1280 2395 / 2395 355 / 355
Balance 2696.9 / 2817.1 1145.8 / 1253.8 247 / 247
Intake:
Oral fluids 750 / 750 960 / 960 200 / 200
IV fluids (Total) 1406.9 / 1472.1 1315.8 / 1368.8 182 / 182
Amiodarone. 183.7 / 183.7
Double concentrated 531 / 561 90 / 90
Neosynephrine
Heparin 130 / 140 230 / 241 44 / 44
Insulin 33.2 / 34.4 4.8 / 4.8
Neosyneprhrine 1060 / 1114 270 / 270
Vasopressin 180 / 192 48 / 48
albumin 100 / 100
IV piggybacks 500 / 500
TPN/PPN 1320 / 1375 1265 / 1320 220 / 220
Output:
Liquid stool amount 525 / 525
Colostomy 525 / 525
Drain Output (Total) 455 / 455 625 / 625 130 / 130
Left Lower Abdomen Pierce- 145 / 145 195 / 195 40 / 40
Hoover
Right Lower Abdomen Pierce- 210 / 210 310 / 310 60 / 60
Hoover B
Sacrum Pierce-Hoover C 100 / 100 120 / 120 30 / 30
Urine, Rogers 825 / 825 875 / 875
Urine, Voided 370 / 370 225 / 225
Other:
Number of unmeasured liquid
stools
Colostomy 50
Lab Results
04/15/25 03:52
04/15/25 05:11
Physical Exam
-
General: No Acute Distress and AOx3
Abdomen: Soft, Non Distended, Non Tender and Other (colostomy warm and pink)
Skin: Warm and Dry
--- NOTE | 2025-04-15 10:30 | PTCARENOTE ---
Ate 75% of cream of wheat and a couple bites for ice cream for breakfast. Reports not eating d/t making her feel more SOB not d/t lack of appetite. Drinking plenty of water. Weaning phenylephrine.
--- NOTE | 2025-04-15 13:00 | PTCARENOTE ---
Pt lethargic. Refusing lunch at this time. Denies chest pain or SOB at this time. Repositioned frequently. All other assessments unchanged.
[2025-04-15] MEDS: LASIX 80 MG IV (13:03)
--- NOTE | 2025-04-15 13:15 | W.PN.HOSP.TC ---
Today's Communication/Plan
-
Continue with IV heparin
Wean pressors as tolerated
Diet advanced to low residue
TPN per surgery
Monitor diuretics response
Assessment / Plan
Assessment / Plan
General: Well Developed, Well Nourished and Obese
HEENT: Normocephalic, Atraumatic
Respiratory: Rales and Non Labored Respirations
Cardiac: S1/S2 and Irregular Rhythm
Breast: Deferred by me
GI: Tender and Other (Draind at surgical site), ostomy
Genito-urinary: No Costovertebral Tender
Musculoskeletal: No Clubbing and No Cyanosis
Skin: Warm, diffuse anasarca noted
Neuro: Awake, Alert, Oriented and AO x 3
Psych: Calm
Impression:
Patient is a 74y F with PMH significant for A-Fib, CHF and anal cancer with recent recurrence who presented to on 03/28 for scheduled surgery for resection of recurrent malignancy. Patient underwent ureteroscopy with bilateral ureteral stents,
robotic APR, BIANKA / BSO, repair of vaginal defect and perineal reconstruction / flap on 03/28/25. She received 2 units PRBC and 1g TXA during the surgeries. Patient was successfully extubated post-op. She was on pressors post-op which were able to
be weaned, but have since been restarted at low dose to maintain adequate perfusion.
Medicine service was consulted for management of patient's multiple medical issues.
Patient Status post debridement on 04/03/2025 of flap to muscle. Pressure offloading per plastics surgery recs.
Worsening thrombocytopenia.
Heparin held, HIT antibody negative
Tolerating clear liquid
Blood pressure dropped and back to pressors
Assessment/plan:
Anal Cancer s/p Robotic APR, BIANKA/BSO, Repair of Vaginal Defect, Perineal Reconstruction / Flap
Concern for superficial necrosis of the flap
- Continue post-op care per surgical service(s). Pain control.
- Pain control. OOB/activity per surgery post op.
- IV Ancef transition to Zosyn as below.
- Status post debridement on 04/03/2025 of flap to muscle. Pressure offloading per plastics surgery recs
- Patient continued on TPN
- Diet advanced to low residue
- Plastic surgery correspondence noted with no plan for surgery. WBC down trended.
- CT abdomen pelvis done on 04/14/2024 and noted
Acute Blood Loss Anemia
Shock likely secondary to hemorrhagic and hypovolemia
- Received 5 units PRBCs total thus far (and 1 g TXA) and 2units of FFP and 10mg of Vitamin K. Hemoglobin at 8.9
- Currently on phenylephrine and vasopressin for BP support - wean as able. Midodrine 10mg TID. Status post albumin IV infusion.
- IV ppi. IVF has been stopped.
- Follow H&H and transfuse additional blood products if needed.
- CT scan abd/pelvis
- On high dose of midodrine. Wean pressors as Bp allows but remains difficult.
Thrombocytopenia
-Place dropped as low as 38
-HIT at antibodies negative
-Platelet count improved.
-Heparin resumed
Moderate right pleural effusion
-Pleural effusion noted on the CAT scan
-If with Shortness of breath or worsening hypoxemia may need thoracentesis
-Monitor for now. Plan for diuresis
Vasovagal episode on 04/04/2025
- Likely multifactorial in the setting of shock, atrial fibrillation, hypovolemia, fluid shift
- Blood pressure stabilized to some extent. Remains on pressors.
Persistent Atrial Fibrillation
- now in RVR. IV amiodarone has been transition to po 200mg daily. Hep gtt started. Plan to hold on start Eliquis as plan for surgery this week.
- Lopressor IV at low dose with holding parameters for BP.
- Eliquis on hold for surgery, blood loss, etc.
- Cardiology following
Anasarca likely secondary to iatrogenic fluid administration PRBC, FFP, IV fluids
- RUE venous doppler negative
- Patient has gained significant weight since admission
- Trial of 80 mg of IV Lasix.
Acute on chronic HFpEF
Severe pulmonary hypertension
- Diuresis has been difficult due to hypotension and pressor requirement
- Did receive Lasix earlier in the hospitalization. And plan for repeat dose today.
- Cardiology following
Transaminitis likely secondary to shock
- LFTs are improved
Hypothermia
- Mild hypothermia post-op. Likely combination of anesthesia, blood loss, etc.
- resolved
Acute hypoxic respiratory insufficiency
- Wean O2 as tolerated.
-
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
- Now started on IV insulin infusion per critical care glycemic protocol
- A1C was 5.7 on 03/26/25.
OSMANY on CKD III
- Stable. SCr is actually improved from prior baseline (1.3 compared to 1.6).
- Monitor urinary output. Possibly due to cardiorenal syndrome with significant volume overload. Monitor creatinine closely post diuresis.
Hypothyroidism
- TFTs normal in February of this year.
- Repeat TFTs given hypothermia- TSH wnl.
- Off IV synthroid. Cont w/home dose 150mcg
Hypocalcemia
Hypomagnesemia
Hypophosphatemia
Hypokalemia
-Replete and monitor
Mild hypernatremia
- Monitor for now. Improved
CODE STATUS: Full code
DVT prophylaxis: Heparin resumed
Anticipated Discharge: > 48 hours
Subjective/Interval History
-
Date of Service: April 15, 2025
More awake this morning
Watching TV
Remains on 2 pressors
Objective Data
-
Labs:
Laboratory Results
04/15/25 04/15/25 04/15/25
03:52 04:54 05:11
WBC 11.0 H
Hgb 8.0 L
Hct 26.5 L
Plt Count 89 L
APTT 70.8 H
Sodium Cancelled 135
Potassium Cancelled 4.8
Chloride Cancelled 106
Carbon Dioxide Cancelled 19 L
BUN Cancelled 85 H
Creatinine Cancelled 1.8 H
Glucose Cancelled 212 H
Calcium Cancelled 8.1 L
Total Bilirubin Cancelled 3.2 H D
AST Cancelled 26
ALT Cancelled 14
Alkaline Phosphatase Cancelled 68
04/15/25
12:30
WBC
Hgb
Hct
Plt Count
APTT Pending
Sodium
Potassium
Chloride
Carbon Dioxide
BUN
Creatinine
Glucose
Calcium
Total Bilirubin
AST
ALT
Alkaline Phosphatase
Vital Signs:
Vital Signs
Temp Pulse Resp BP Pulse Ox
97.7 F 99 17 115/62 99
04/15/25 11:19 04/15/25 13:00 04/15/25 13:00 04/15/25 13:00 04/15/25 13:00
I&O
04/14/25 04/15/25 04/16/25
06:59 06:59 06:59
Intake Total 3976.9 / 4097.1 3540.8 / 3648.8 1140 / 1140
Output Total 1280 / 1280 2395 / 2395 480 / 480
Balance 2696.9 / 2817.1 1145.8 / 1253.8 660 / 660
Data Reviewed
-
Total Time Spent with Patient (in minutes): 55
[2025-04-15] MEDS: NOVOLOG FLEXPEN-LOW RESISTANCE SC (13:33)
[2025-04-15 13:43] LABS: Glucose - Point of Care 142 mg/dl (70-99)
[2025-04-15 14:00] LABS: APTT 93.0 Sec (23.4-35.0)
[2025-04-15] MEDS: NOVOLOG FLEXPEN SC ×2 (14:07→18:58)
[2025-04-15] MEDS: HEPARIN 25000 UNITS/250 ML IV (14:49)
--- NOTE | 2025-04-15 16:15 | CM ---
Increased WOB, pleural effusions, renal function worsening. Discharge POC: SNF. Medicare. Gov list previously provided.
[2025-04-15] MEDS: SUBLIMAZE 25 MCG IV (16:23)
--- NOTE | 2025-04-15 17:00 | PTCARENOTE ---
Pt more lethargic. Skin pale/sallow. Refusing meals. Drank a cup of broth for dinner. Controlled afib. +3-4 general edema. B/L arms weeping. SpO2 97-100% on 4L NC. SpO2 decreased when flat/repositioned. Crackles noted bilaterally. Left
abdomen and right buttock PRETTY dressing changed d/t serous fluid draining from site. Sacral dressing changed x2 d/t saturated with serous fluid. Ostomy bag leaking therefor appliance changed. Rogers draining clear yellow. All other assessments
unchanged.
--- NOTE | 2025-04-15 17:04 | W.SUR.POST ---
Surgical Immediate Post Op
Note
Arterial Catheter Insertion Procedure
Date of procedure: 04/15/2025
Pre Op Diagnosis: Circulatory shock; need for continuous blood pressure monitoring
Post Op Diagnosis: Same as above
Procedure Performed: Arterial catheter insertion procedure
Primary Proceduralist: Dr. Cintron
Secondary Proceduralist: Dr. Anne Ventura
Anesthesia: Fentanyl 25mcg x1
Estimated Blood Loss: 10 cc
Fluids: N/A
Drains/Shunts: N/A
Specimens/Cultures: N/A
Doppler/Duplex/Angio (Y/N): N/A
Complications: No immediate complications
Operative Findings: After informed verbal consent was obtained from the daughter over the phone, the patient was positioned supine to access her right femoral artery. Of note, I had first attempted to insert an arterial catheter into her left
radial artery however the catheter would not glide over the guidewire, and there was a similar issue on the right radial artery. I even tried inserting the trochar both proximally and distally but still without successful advancement of the
catheter. I was getting blood return on all attempts. I then decided to pursue her right femoral artery. Prior to procedure, I evaluated the artery with bedside US and there was poor pulsatility. Sterile technique was employed with handwashing,
cap, gown, face mask and sterile gloves. The right femoral artery site was cleaned with a ChloraPrep. Of note, the same sterile technique was utilized when I performed the radial artery arterial catheter insertion procedures. Ultrasound guidance
was utilized to identify the patent femoral artery. Seldinger technique was utilized for the femoral artery A line insertion (where as integral-guidewire (Arrow) technique was used for the radial artery procedures). The trochar was inserted into
the patient's skin and advanced until pulsatile blood flow was seen inside coming out of the catheter. The guidewire was placed into the trochar and advanced, and then the trochar was removed. Blade was applied to the skin at the guidewire
insertion site, and a small incision was made. The arterial catheter was then placed over the guidewire, and the guidewire was removed in its entirety. The arterial catheter was attached to the tubing. Arterial line was secured into place using
the suture within the femoral artery insertion procedure kit. The insertion site was covered with a Biopatch and the entire catheter was then covered with a Tegaderm. There were no immediate complications.
[2025-04-15] MEDS: ROXICODONE 10 MG PO ×2 (18:13→22:43)
[2025-04-15 18:47] LABS: HCO3 19.3 mmol/L (21-28)
[2025-04-15 18:53] LABS: Glucose - Point of Care 196 mg/dl (70-99)
[2025-04-15 18:56] LABS: B.E. -7.6 mmol/L; O2 Saturation % 41.1 % (94-98); PCO2 45 mmHg (32-35)
[2025-04-15 18:57] LABS: PO2 30 mmHg (83-108)
[2025-04-15] MEDS: Parenteral Nutrition, Central 1330 IV (19:59)
[2025-04-15 20:23] LABS: APTT 100.7 Sec (23.4-35.0)
[2025-04-16] VITALS (59 sets, daily range): BP systolic 67–132; BP diastolic 22–85; PULSE 69–76; O2SAT 92–99; BMI 42.3
[2025-04-16] MEDS: ROXICODONE 10 MG PO ×5 (03:04→22:50)
[2025-04-16] MEDS: NEO-SYNEPHRINE 1% 260 MG IV ×2 (03:12→20:16)
[2025-04-16 03:29] LABS: Venous Blood Gas B.E. -8.4 mmol/L (-4 to +4); Venous Blood Gas O2 Sat % 94.2 %; Venous Blood Gas O2 Therapy NC
[2025-04-16 04:13] LABS: Hematocrit 24.9 % (37.0-47.0); Hemoglobin 7.6 g/dL (12.0-16.0); Mean Corp Hgb Conc. 30.5 g/dL (33.0-37.0); Mean Corpuscular Volume 99.2 fL (81.0-99.0); Platelet Count 86 10^3/uL (130-400); Red Cell Dist. Width 23.3 % (11.5-14.5)
[2025-04-16 04:15] LABS: Blood Urea Nitrogen 89 mg/dl (7-17); Calcium 8.0 mg/dl (8.4-10.2); Carbon Dioxide 19 mmol/L (22-30); Chloride 105 mmol/L (98-107); Estimated Creatinine Clearance 28 ml/min; Glucose 302 mg/dl (70-99); Magnesium 2.0 mg/dl (1.6-2.3); Potassium 4.5 mmol/L (3.5-5.1); Sodium 133 mmol/L (135-145); eGFR 27.20
[2025-04-16] MEDS: SYNTHROID 150 MCG PO (04:52)
--- NOTE | 2025-04-16 04:57 | PTCARENOTE ---
AM labs sent. pt repositioned frequently overnight with pillows to L/R sides. dressings to abdomen and sacrum changed due to drainage. large amt of weeping from b/l arms. remains oriented x2. currently SR on monitor, HR 60-70s. merrill/vaso gtts
continue to maintain BP goal. pt on 3L NC. colostomy with red budded stoma but minimal stool output. TPN continues. brewer care done. PRETTY x3 output documented overnight. ICU TRUSS DESIGNER attempted arterial line multiple times overnight without success. heparin
gtt continues. PO pain meds given overnight, see MAR. call chaves in reach.
[2025-04-16 05:15] LABS: APTT 93.3 Sec (23.4-35.0)
[2025-04-16] MEDS: SODIUM BICARBONATE 50 MEQ IV (05:38)
[2025-04-16] MEDS: PITRESSIN 100 IV (06:22)
--- NOTE | 2025-04-16 07:55 | PN.DE.MGMTRT ---
Insulin Management
- -
04/16/2025: Diabetes Management Follow up
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 PMH anal sq. cell CA, pacemaker, diabetes, hypothyroid, obesity, a fib, HTN, ASCVD/CVA, HCL. Prior to admission was taking Tresiba 8 units @ HS with
glyburide 2.5 mg daily. States she has had diabetes 20 years, has glucose monitor. States she only took the glipizide if her glucose was > 135. A1C 5.7%, cr 1.4, eGFR 39.23-->1.6, eGFR 33.42 today.
Patient is awake and alert, oriented, resting in bed, states she feels very weak.
Patient still receiving TPN, diet was advanced to low residue, and NovoLog was changed to AC. Noted for poor appetite and barely eating her meals.
Yesterday, did not receive meal time insulin at lunch or dinner. Pre-dinner glucose was 196, No HS POC done. FBG 302 V and 380 POC this AM.
Will cont current regimen: Lantus 10 units in AM, NovoLog 5 units AC with low corrective.
Discussed with Nurse and emphasized importance of giving ordered NovoLog dose as long as pt remains on TPN, despite poor oral intake, to avoid escalations in blood glucose. Closely monitor glucose trend while on TPN, will restart glycemic protocol
if necessary.
Will cont to follow.
Diabetes History
- -
Type of Diabetes: 2 requiring insulin
Pre-Admission Diabetes Regimen
04/16/25
03:15
Creatinine 1.9 H
Lab Results
Hemoglobin A1c 5.7 % (4.0-5.6) H 03/26/25 10:51
Insulin Pump Settings
IP Diabetes Regimen
04/15/25 04/15/25 04/15/25
13:33 18:32
Glucose
POC Glucose 174 H 142 H 196 H
04/16/25
03:15
Glucose 302 H
POC Glucose
Patient Education
--- NOTE | 2025-04-16 08:00 | PTCARENOTE ---
Pt rec'd from night RN. Drowsy, arousable, AOX3. Pain 5/10 in right upper abdomen. Medicated with PRN Roxicodone 10 mg per orders with AM medications. Pt took pills with 4 oz applesauce and a few bites of cream of wheat. Declined any other food or
drink. Sinus rhythm on tele, BPs soft, vasopressin, double conc. phenylephrine, heparin and TPN infusing, see worklist for details. Adam increased to 160 mcg/min for MAP 62 per order. Lungs with bilat crackles. 02 weaned to 2L, sat 95% right now.
Hypo bowel sounds, stool noted in colostomy. Rogers in place draining yellow urine. Left DL PICC, right CW port both patent. Pt with generalized anasarca +3 with weeping arms and abdomen, wrapped in absorbent pads. Turned with colorectal surgery team
to assess wound on shaina area. Pt's 3 PRETTY drains and midline abd incision assessed, dressings changed as per worklist. PT/OT worked with patient to sit on side of bed but she was unable to tolerate for more than a few seconds due to pain. Plan
discussed with Dr. Barreto, resident Dr. Ventura and CRS team. Emotional support provided to patient, calm and safe environment maintained. Call chaves in hand.
[2025-04-16] MEDS: NOVOLOG FLEXPEN 5 UNITS SC ×2 (08:16→11:30)
[2025-04-16] MEDS: NOVOLOG FLEXPEN-LOW RESISTANCE 5 UNITS SC ×2 (08:19→11:31)
[2025-04-16 08:20] LABS: Glucose - Point of Care 380 mg/dl (70-99)
[2025-04-16] MEDS: LANTUS 0.1 UNITS SC (08:23)
[2025-04-16] MEDS: NEURONTIN 100 MG PO ×2 (08:23→21:07)
[2025-04-16] MEDS: PACERONE 200 MG PO (08:23)
[2025-04-16] MEDS: MEGACE 20 MG PO ×2 (08:23→21:07)
[2025-04-16] MEDS: PROTONIX IV 40 MG IV (08:24)
[2025-04-16] MEDS: NSS (PRESERVATIVE FREE) 10 ML IV (08:24)
[2025-04-16] MEDS: DESENEX/MITRAZOL/ZEASORB 1 APPLIC TOPICAL ×2 (08:41→21:07)
--- NOTE | 2025-04-16 08:52 | W.PN.CRS1 ---
Today's Communication / Plan
-
as below
Assessment/Plan
-
74 yo female s/p adjunctive chemo now presenting for operative management of anal cancer
POD #19 RAL APR (CRS), vaginal defect repair with BIANKA/BSO (VIRTUAL CUSTOMER ASSISTANT) and VRAM flap (Plastics)
POD #13 Excisional Debridement to muscle [id number] of superficial necrotic tissue, adjacent tissue transfer [id number]
AFVSS
s/p 2 units FFP and 5 units PRBC's total this admit, last transfusion was on 03/31
Afebrile, VSS, neoone 40, vaso 0.03
WBC 13.1 from 11.0, Hb 7.6 from 8.0, CR 1.9, UOP 1.5 L
U/S for RUQ abdominal pain- US with contracted gallbladder, CBD 8 mm (minimally elevated for age)
-Continue low residue and Megace for appetite stimulant.
-Continue TPN with insulin gtt
�Maintain MAP greater than 65; wean pressors as tolerated
�If shock is felt to be due to infectious/septic source, would recommend restarting broad-spectrum antibiotics
�Will discuss with plastics utility of wound debridement in setting of shock of unknown etiology
-Stoma nurse following for stoma care
-c/w PRETTY drains, follow outputs
-IS while awake
-Analgesics prn, Tylenol scheduled.
-PPI for GI ppx
- Continue hep drip
-Medical management as per ICU/medicine teams
Subjective Data
Subjective Data
Date of Service: April 16, 2025
No issues overnight. Remains on merrill and vaso. Denies any N/V. Per nurse, only had a bowl of broth and 2 bites of yogurt all day yesterday. Having ostomy function.
Pain controlled.
Objective Data
-
Vital Signs
Temp Pulse Resp BP Pulse Ox
97.9 F 70 18 107/85 100
04/16/25 07:16 04/16/25 08:24 04/16/25 07:02 04/16/25 08:24 04/16/25 07:02
Intake & Output
04/15/25 04/16/25 04/17/25
06:59 06:59 06:59
Intake Total 3540.8 / 3648.8 2787 / 2886 99 / 99
Output Total 2395 / 2395 2205 / 2205
Balance 1145.8 / 1253.8 582 / 681 99 / 99
Intake:
Oral fluids 960 / 960 450 / 450
IV fluids (Total) 1315.8 / 1368.8 1017 / 1061 44 / 44
Double concentrated 531 / 561 465 / 486
Neosynephrine
Heparin 230 / 241 264 / 275
Insulin 4.8 / 4.8
Neosyneprhrine 270 / 270
Vasopressin 180 / 192 288 / 300 /
albumin 100 / 100
TPN/PPN 1265 / 1320 1320 / 1375 55 / 55
Output:
Liquid stool amount 525 / 525
Colostomy 525 / 525
Drain Output (Total) 625 / 625 495 / 495
Left Lower Abdomen Pierce- 195 / 195 50 / 50
Hoover
Right Lower Abdomen Pierce- 310 / 310 320 / 320
Hoover B
Sacrum Pierce-Hoover C 120 / 120 125 / 125
Urine, Rogers 875 / 875 1560 / 1560
Urine, Voided 370 / 370 150 / 150
Other:
Number of unmeasured liquid
stools
Colostomy 25
Lab Results
04/16/25 03:15
04/16/25 03:15
Physical Exam
-
General: No Acute Distress and AOx3
HEENT: Grossly Normal
Abdomen: Soft, Non Distended, Tender (Appropriately tender near incisions; incisions without erythema or drainage; inferior aspect of midline incision of about 2 cm with some fibrinous exudate) and Other (Ostomy pink with stool in the appliance; JPs
x 3 serous)
Rectal: Other (Peritoneal wounds with separation of the skin and accumulation of fibrinous exudate; in the posterior aspect of the incision, there is developing tough fibrinous exudate; no purulent drainage or surrounding erythema noted)
Skin: Warm and Dry
--- NOTE | 2025-04-16 09:26 | W.PN.INTV ---
Today's Communication / Plan
Recommendations
Plan reviewed with attending.
Stop vaso. Wean pressors. Encourage PO.
Assessment
-
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
status post robotic abdominoperineal resection, BIANKA/BSO, VRAM flap perineal reconstruction, 03/28. Patient admitted to ICU postoperatively given significant blood loss, hypotension requiring pressors.
Since last week, pt has gone up on pressor needs with stable leukocytosis, worsened pain control, and fluid retention. Diuresed yesterday with weight down 101.5kg from 103.8kg. This morning she is reporting feeling better. She continues to complain
of RUQ pain. US negative for acute biliary etiology. Draining purulent fluid in rectal PRETTY and serous in abdominal drains. Sacral tissue yellow.
Shock, hemorrhagic related to blood loss and likely post-op vasoplegia
Coagulopathy, suspect transfusion related. RUE negative for DVT
S/p robotic abdominoperineal resection, BIANKA/BSO, repair of vaginal defect, VRAM flap perineal reconstruction, 03/28/25
Concern for superficial necrosis of flap, s/p excisional debridement to muscle 10 x 30 cm with adjacent tissue transfer/ 04/03
OSMANY
Leukocytosis
Thrombocytopenia
Hyperkalemia
Hyperglycemia
Kleb UTI
Conditions present prior to admission
History of CKD stage IIIb
Diabetes
Anal squamous cell cancer, stage III
Diagnosed November 2023
s/p chemotherapy/radiation at [place]
Recurrence of disease per pelvic MRI January 2025
[facility]
Atrial fibrillation on Eliquis
Now off amiodarone Per cardiology, remains on beta-joseph (Shadi)
Moderate pulm hypertension, echo March 2025, stable compared to prior echo
With dilated RV, normal function, PA pressure 66
Normal EF
Moderate mitral stenosis
History of stroke 1994 and again 2022 per patient
Suspected sleep apnea
Hypothyroidism
Plan:
Neuro:
Extubated and weaned off sedation
Rass goal 0
Pain control: Oxycodone 10mg. Gabapentin.
Cardio:
Shock, hemorrhagic related to blood loss and likely post-op vasoplegia. Continues on midodrine 10mg with increasing pressor need vasopressin 0.04 phenylephrine 160.
Placed A line yesterday with findings of severe PAD. Suspicion peripheral pressures are poor from PAD rather than continued shock. Wean pressors.
PO Amiodarone. Switched into sinus rhythm 04/15.
Chronic HFpEF - f/u CXR stable
Continue telemetry monitoring
Echo 04/08 demonstrated PASP 85 prior 66
EKG 04/15 demonstrated no changes.
Pulm:
Remains on low supplemental o2, wean to off. Currently 2L. Tachypnea improving.
Increased pleural effusions noted on CT and pulmonary vascular engorgement
Encourage I-S
Aspiration precautions
GI:
Diet advanced. Tolerating PO with continued poor appetite. Increased megace.
Stable ostomy output.
S/p robotic abdominoperineal resection, BIANKA/BSO, repair of vaginal defect, VRAM flap perineal reconstruction, 03/28/25
Continues TPN pending PO intake. Discussions with surgery surrounding TPN associated poor appetite. Consider stopping TPN to improve appetite.
Colorectal following
PRETTY drains output purulent drainage.
Perineal flap is yellow sloughing.
ID:
Stable WBC off abx
Patient returned to OR for excisional debridement 04/03- followed by plastics. Flap evaluated by surgeons today.
Lactate WNL
Heme:
Follow CBC. Hgb continues to steadily reduce.
Continues on heparin drip with possibility of returning to OR.
:
Mild OSMANY - Decreased urine out put, dry mouth, also hypotensive. Weight improving
Diuretics yesterday 80mg lasix with improved output
s/p > 2 ltr LR and Albumin 04/06. Albumin given today 04/14
Follow creat, IOs.
Replete electrolytes as needed
Endocrine:
Sliding scale and basal insulin.
accu checks q1
DVT prophylaxis: SCDs in place. Heparin started.
GI prophylaxis: Protonix
Data:
CXR 04/02/25- Low lung volumes with patchy bibasilar opacities, likely atelectasis and/or small effusion. No significant effusions or pneumothorax appreciated.
03/28/25- Nasogastric tube is present with tip near the gastroesophageal junction and distal sidehole in the distal esophagus. Consideration for advancement of this tube. Interstitial edema. Linear atelectasis in the right midlung. Mild to moderate
elevation of the left hemidiaphragm, new since previous radiograph. Probable small bilateral pleural effusions.
CT CAP 02/21/25- Circumferential anal wall thickening consistent with known malignancy versus posttreatment change. Probably stable. No evidence of metastatic disease. However, extremely limited exam without IV contrast. Tiny pericardial effusion.
Stable. Progressed small right and new tiny left pleural effusions. Findings suggesting moderate bilateral lower lobe and mild upper lobe pneumonia. New. Mild mediastinal lymphadenopathy. Probably reactive. Stable. Gallstones. Stable. Mild diffuse
bladder wall thickening. This can be seen with cystitis or bladder outlet obstruction. Improved.
Findings suggesting bilateral lower third spacing. Progressed
Echo 03/25/2025: Normal biventricular function with mildly dilated RV, moderate mitral stenosis, severe TR, PA pressure 66
Subjective Dataa
Subjective Data
Date of Service:
Date of Service: April 16, 2025
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
Subjective:
Pt reports feeling a bit better today. Pain is controlled. Continued low appetite.
Objective Data
Data Reviewed
Vital Signs / I&O / Oxygen:
Vital Signs
Temp Pulse Resp BP Pulse Ox
97.9 F 70 18 107/85 100
04/16/25 07:16 04/16/25 08:24 04/16/25 07:02 04/16/25 08:24 04/16/25 07:02
Intake and Output
04/15/25 04/16/25 04/17/25
06:59 06:59 06:59
Intake Total 3540.8 / 3648.8 2787 / 2886 99 / 99
Output Total 2395 / 2395 2205 / 2205
Balance 1145.8 / 1253.8 582 / 681 99 / 99
SaO2 100
Nasal Cannula flow liters per 4
minute
Physical Exam
General: Respiratory Distress (n), Comfortable, Poor Appetite and Other (NAD)
HEENT: Normocephalic, Anicteric and Moist Mucous Membranes
Cardiovascular: Regular Rhythm (converted to sinus last night from afib)
Respiratory: Clear (improved breath sounds bilaterally compared to yesterday), Wheeze, Crackles, Rhonchi and Non-Labored Respirations (tachypenic)
GI: Soft, Non Distended, Tender (diffuse tenderness) and Other (abdominal incisions are noted, sacral drain with purulent fluid, serous fluid in abdominal drain, sacral tissue is yellow)
Neurology: Awake, Alert and No Motor Deficits (Generally weak)
Skin: Warm, Good Color (Mild pallor) and Other (yellow sloughing of bottom, edematous third spacing in all 4 extremities)
Labs/Micro/Reports
Lab Data
04/16/25 03:15
04/16/25 03:15
Laboratory Results
04/15/25 04/15/25 04/15/25
13:31 18:35 20:04
APTT 93.0 H 100.7 H
pH 7.24 L
pCO2 45 H
pO2 30 L*
HCO3 19.3 L
O2 Delivery Level
04/16/25
04:43
APTT 93.3 H
pH
pCO2
pO2
HCO3
O2 Delivery Level
--- NOTE | 2025-04-16 09:30 | W.PN.CD ---
Impression / Plan
-
#Shock: initially Hemorrhagic/now source is less clear
- s/p robotic abdominoperineal resection, repair of vaginal defect, robotic total laparoscopic hysterectomy, bilateral salpingo-oophorectomy, vertical rectus abdominis myocutaneous flap reconstruction of the perineum, cystoscopy and bilateral
ureteral stent insertion (03/28/25)
- post-op course complicated by hypotension requiring blood products, fluids, vasopressors
- s/p 5 U PRBC (4 on 03/28/2025 and 1 on 03/31/2025)
-Requiring BP support on phenylephrine weaning as tolerated
- Maintain MAP > 65.
- random cortisol normal
- Patient likely third spacing, started on albumin. Ongoing increased weights will give lasix 80 mg IV
Persistent AFib
- Mildly elevated rates. Appropriate for current clinical circumstance. Using iv amio b/c of BP and GI status
-possible transition to po tomorrow
- Resume Eliquis when appropriate
Chronic HFpEF:
- Seems comfortable
- From her critical illness and support her weight is way up from baseline 86.3 kg. Now at 98 kg. Patient with upper and lower extremity edema but still with low blood pressures which are limiting diuretic use
- Had one dose of Lasix 04/04/2025
- Hold on diuresis, tolerated the volume and BP still soft, low O2 needs at this time. Will need fluid mobilization at some point if she does not diurese on her own
.
Hypotension. Blood pressures remain low. She has had asymptomatic systolic blood pressures in the 80s current blood pressure 95/78. Continue to monitor closely. Some challenges in obtaining blood pressure is not using right arm. Only using left
wrist at this point. Continue to monitor pressures closely. repeat echo with normal left ventricular function
Pacemaker followed in our office
Subjective: denies CP or dyspnea
Data:
Echo 03/25/25: LVEF 55-60%. Mod MS, mean 5 mmHg. Mod-severe TR, est PASP 66 mmHg, est RA 8 mmHg. Stable from 02/15/2024
Echo 04/08/2025: LVEF 60-65%, dilate RV and reduced EF, PASP 85mmHg
Data:
Echo 04/08/25
1. TDS. Normal LV size and function with no obvious wall motion abnormality. LVEF is 60-65% by visual estimation.
2. Dilated RV with reduced systolic function.
3. Moderate to severe tricuspid regurgitation.
4. Estimated PASP of 85 mmHg assuming a right atrial pressure of 8 mmHg.
5. Compared to prior from March 25, 2025, estimated PASP is now 85 mmHg, previously 66 mmHg.
Physical Exam
Vital Signs/Labs
Vital Signs
Temp Pulse Resp BP Pulse Ox
97.9 F 70 18 107/85 100
04/16/25 07:16 04/16/25 08:24 04/16/25 07:02 04/16/25 08:24 04/16/25 07:02
04/15/25 04/16/25 04/17/25
06:59 06:59 06:59
Actual Weight 228 lb 13.437 oz 223 lb 12.307 oz
04/16/25 03:15
04/16/25 03:15
PT 21.5 Sec (11.4-14.6) H 04/04/25 14:51
INR 1.85 04/04/25 14:51
APTT 93.3 Sec (23.4-35.0) H 04/16/25 04:43
Magnesium 2.0 mg/dl (1.6-2.3) 04/16/25 03:15
Triglycerides 92 mg/dl (10-149) 04/14/25 05:18
04/14/25
05:18
[id number] Pept > 18490
LAB Results
04/15/25
09:04
Troponin I < 0.012
Data Reviewed
-
Date of Service: April 16, 2025
[2025-04-16 11:22] LABS: Glucose - Point of Care 363 mg/dl (70-99)
--- NOTE | 2025-04-16 11:32 | PTCARENOTE ---
Hyperglycemia noted and discussed with care team. As per Naldo Hernandez, coding educator, pt is to receive both sliding scale insulin and standing coverage while receiving TPN even if not having sufficient PO intake. See worklist for details. Plan
discussed in rounds. Vasopressin stopped at [address] Cintron, plan will be to wean merrill at 13:00 and recheck Lactate at 15:00. Orders rec'd. Pt turned side to side. Crying in pain, stating multiple areas of pain. Emotional support provided.
Sacral dressing changed and wound assessed, back rubbed. PRETTY drains again emptied. Call chaves in hand, music playing. Pt continues with occasional confused conversation, dozing when undisturbed.
--- NOTE | 2025-04-16 12:42 | W.PN.HOSP.TC ---
Today's Communication/Plan
-
Plan to wean down pressors as tolerated
Repeat H&H later today
On TPN
Encourage increased p.o. intake
No plan for diuresis. Monitor creatinine closely.
Assessment / Plan
Assessment / Plan
General: Well Developed, Well Nourished and Obese
HEENT: Normocephalic, Atraumatic
Respiratory: Rales and Non Labored Respirations
Cardiac: S1/S2 and Irregular Rhythm
Breast: Deferred by me
GI: Tender and Other (Draind at surgical site), ostomy
Genito-urinary: No Costovertebral Tender
Musculoskeletal: No Clubbing and No Cyanosis
Skin: Warm, diffuse anasarca noted
Neuro: Awake, Alert, Oriented and AO x 3
Psych: Calm
Impression:
Patient is a 74y F with PMH significant for A-Fib, CHF and anal cancer with recent recurrence who presented to on 03/28 for scheduled surgery for resection of recurrent malignancy. Patient underwent ureteroscopy with bilateral ureteral stents,
robotic APR, BIANKA / BSO, repair of vaginal defect and perineal reconstruction / flap on 03/28/25. She received 2 units PRBC and 1g TXA during the surgeries. Patient was successfully extubated post-op. She was on pressors post-op which were able to
be weaned, but have since been restarted at low dose to maintain adequate perfusion.
Medicine service was consulted for management of patient's multiple medical issues.
Patient Status post debridement on 04/03/2025 of flap to muscle. Pressure offloading per plastics surgery recs.
Worsening thrombocytopenia.
Heparin held, HIT antibody negative
Tolerating clear liquid
Blood pressure dropped and back to pressors
Assessment/plan:
Anal Cancer s/p Robotic APR, BIANKA/BSO, Repair of Vaginal Defect, Perineal Reconstruction / Flap
Concern for superficial necrosis of the flap
- Continue post-op care per surgical service(s). Pain control.
- Pain control. OOB/activity per surgery post op.
- IV Ancef transition to Zosyn as below. and finished course.
- Status post debridement on 04/03/2025 of flap to muscle. Pressure offloading per plastics surgery recs
- Patient continued on TPN
- Diet advanced to low residue-PO intake remains low. Megace was added.
- Plastic surgery correspondence noted with no plan for surgery. WBC down trended.
- CT abdomen pelvis done on 04/14/2024 and noted
Acute Blood Loss Anemia
Shock likely secondary to hemorrhagic and hypovolemia
- Received 5 units PRBCs total thus far (and 1 g TXA) and 2units of FFP and 10mg of Vitamin K. Hemoglobin at 8.9
- Currently on phenylephrine and vasopressin for BP support - wean as able. Midodrine 10mg TID. Status post albumin IV infusion.
- IV ppi. IVF has been stopped.
- Follow H&H and transfuse additional blood products if needed.
- CT scan abd/pelvis
- On high dose of midodrine. Wean pressors as Bp allows but remains difficult.
- Hgb at 7.6. Will repeat H/H later today. Status post aggressive IV fluid resuscitation. Requiring pressors. Unclear at this point. Cortisol was normal.
Thrombocytopenia
-Place dropped as low as 38
-HIT at antibodies negative
-Platelet count improved.
-Heparin resumed
Moderate right pleural effusion
-Pleural effusion noted on the CAT scan
-If with Shortness of breath or worsening hypoxemia may need thoracentesis
-Monitor for now. Plan for diuresis
Vasovagal episode on 04/04/2025
- Likely multifactorial in the setting of shock, atrial fibrillation, hypovolemia, fluid shift
- Blood pressure stabilized to some extent. Remains on pressors.
Persistent Atrial Fibrillation
- now in RVR. IV amiodarone has been transition to po 200mg daily. Hep gtt started. Plan to hold on starting Eliquis for now.
- Lopressor IV at low dose with holding parameters for BP.
- Cardiology following
Anasarca likely secondary to iatrogenic fluid administration PRBC, FFP, IV fluids
- RUE venous doppler negative
- Patient has gained significant weight since admission
- Trial of 80 mg of IV Lasix. Lost weight.
Acute on chronic HFpEF
Severe pulmonary hypertension
- Diuresis has been difficult due to hypotension and pressor requirement
- Did receive Lasix earlier in the hospitalization. And plan for repeat dose today.
- Cardiology following
Transaminitis likely secondary to shock
- LFTs are improved
Hypothermia
- Mild hypothermia post-op. Likely combination of anesthesia, blood loss, etc.
- resolved
Acute hypoxic respiratory insufficiency
- Wean O2 as tolerated.
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
- Status post IV insulin. Currently on NovoLog 5 units AC insulin and insulin sliding scale.
- A1C was 5.7 on 03/26/25.
OSMANY on CKD III
- Stable. SCr is actually improved from prior baseline (1.3 compared to 1.6).
- Monitor urinary output. Possibly due to cardiorenal syndrome with significant volume overload. Cr bumped to 1.8. No plan for diuresis.
Hypothyroidism
- TFTs normal in February of this year.
- Repeat TFTs given hypothermia- TSH wnl.
- Off IV synthroid. Cont w/home dose 150mcg
Hypocalcemia
Hypomagnesemia
Hypophosphatemia
Hypokalemia
-Replete and monitor
Mild hypernatremia
- Monitor for now. Improved
CODE STATUS: Full code
DVT prophylaxis: Heparin resumed
d/w with general surgery physician assistant
Anticipated Discharge: > 48 hours
Subjective/Interval History
-
Date of Service: April 16, 2025
remains on pressors
states of decreased appetite
Objective Data
-
Labs:
Laboratory Results
04/16/25 04/16/25
03:15 04:43
WBC 13.1 H
Hgb 7.6 L
Hct 24.9 L
Plt Count 86 L
APTT 93.3 H
Sodium 133 L
Potassium 4.5
Chloride 105
Carbon Dioxide 19 L
BUN 89 H
Creatinine 1.9 H
Glucose 302 H
Calcium 8.0 L
Vital Signs:
Vital Signs
Temp Pulse Resp BP Pulse Ox
97.6 F 71 22 114/56 97
04/16/25 11:22 04/16/25 10:32 04/16/25 10:32 04/16/25 10:32 04/16/25 10:32
I&O
04/15/25 04/16/25 04/17/25
06:59 06:59 06:59
Intake Total 3540.8 / 3648.8 2787 / 2886 440 / 440
Output Total 2395 / 2395 2205 / 2205 435 / 435
Balance 1145.8 / 1253.8 582 / 681
Data Reviewed
-
Total Time Spent with Patient (in minutes): 55
--- NOTE | 2025-04-16 13:00 | PTCARENOTE ---
Adam tapered to 120/mcg/min at 13:[address] Cintron. BP remains WNL. Protocol followed.
[2025-04-16] MEDS: HEPARIN 25000 UNITS/250 ML IV (13:13)
--- NOTE | 2025-04-16 13:27 | PTCARENOTE ---
Pt given PRN Renée at 13:12 for 6 in her 'hands and arms and everywhere' after originally stating just prior that she did not have any pain, but was moaning in pain saying 'I gotta get out of here'...pt remains drowsy/arousable with confused
conversation at times.
--- NOTE | 2025-04-16 14:05 | W.PN.CD ---
Addendum entered and electronically signed by Mirta Barreto MD 04/16/25 17:20:
I saw and evaluated the patient with the resident. I was present for the daley portions of the history and exam and personally performed the MDM, including reviewing labs, assessing patient, and directing management plan. I agree with the residents
note with my comments/adjustments below:
She is seen at the bedside with ICU nurse Nicki. She is increasingly lethargic. Yesterday IV Lasix was giving and she required more Adam-Synephrine today. Interestingly overnight she converted to normal sinus rhythm with no improvement in her blood
pressure.
On exam she has anasarca is somnolent, regular rate and rhythm normal S1-S2 lungs are clear to auscultation anteriorly
Telemetry shows sinus rhythm restored at 22:17 04/15/25
Assessment:
She remains critically ill with increasing vasopressor support. She didn't tolerate a trial at diuresis with lower bp and increasing Cr. Hgb also dropping again. Her prognosis is extremely poor. Agree with Dr Cintron, that she would unlikely
recover from a CODE situation.
For now, continue vasopressor support.
Continue hep gtt--cautiously
continue amiodarone
Original Note:
Today's Communication / Plan
-
Continue amiodarone
Continue heparin GTT
No room for diuresis
Wean pressors as able, maintain MAP >65
Impression / Plan
-
Impression
74y F with PMH significant for A-Fib, CHF and anal cancer with recent recurrence who presented to on 03/28 for scheduled surgery for resection of recurrent malignancy. Patient underwent ureteroscopy with bilateral ureteral stents, robotic APR,
BIANKA / BSO, repair of vaginal defect and perineal reconstruction / flap on 03/28/25. Patient was successfully extubated post-op. She was on pressors post-op which were able to be weaned, but have since been restarted to maintain adequate perfusion.
Plan
#Hemorrhagic/hypovolemic shock
- s/p robotic abdominoperineal resection, repair of vaginal defect, robotic total laparoscopic hysterectomy, bilateral salpingo-oophorectomy, vertical rectus abdominis myocutaneous flap reconstruction of the perineum, cystoscopy and bilateral
ureteral stent insertion (03/28/25)
- post-op course complicated by hypotension requiring blood products, fluids, vasopressors
- s/p 5 U PRBC (4 on 03/28/2025 and 1 on 03/31/2025)
-Requiring BP support on phenylephrine, wean as tolerated
- Maintain MAP > 65.
- random cortisol normal
- Patient likely third spacing, s/p albumin.
- Hemoglobin�7.6 today. Could not overload her with PRBC. Monitor hemoglobin for now. If it drops further, consider transfusion???
# AFib
Telemetry reviewed
Heart rates in 80s, patient converted to sinus 04/15/2025
Continue amiodarone 200 mg
Continue heparin GTT
Patient needs surgical intervention sometime this week, so cannot resume Eliquis.
#Acute on Chronic HFpEF:
-Echo 04/08/2025�EF 60 to 65%,
-also with moderate mitral stenosis, mod/severe TR, severe pulm HTN
- Patient s/p 1 dose of IV Lasix 80 mg yesterday, weights down to 223 from 228, but needed pressor support with vasopressin in addition to phenylephrine. Vasopressin off today.
- Patient appears volume overloaded, with bilateral upper and lower extremity edema. Renal function�creatinine climbing up to 1.9. Patient on phenylephrine, no sufficient room for diuresing.
- Patient is off of IV fluids, hopefully she can be off of TPN as well (to reduce fluid load)-decision left to colorectal/surgery.
- On NC 3L, wean as able.
Rest of her chronic conditions management per primary team.
Physical Exam
Vital Signs/Labs
Vital Signs
Temp Pulse Resp BP Pulse Ox
97.6 F 84 22 121/60 93
04/16/25 11:22 04/16/25 13:36 04/16/25 13:36 04/16/25 13:36 04/16/25 13:36
04/15/25 04/16/25 04/17/25
06:59 06:59 06:59
Actual Weight 228 lb 13.437 oz 223 lb 12.307 oz
04/16/25 03:15
PT 21.5 Sec (11.4-14.6) H 04/04/25 14:51
INR 1.85 04/04/25 14:51
APTT 93.3 Sec (23.4-35.0) H 04/16/25 04:43
Magnesium 2.0 mg/dl (1.6-2.3) 04/16/25 03:15
Triglycerides 92 mg/dl (10-149) 04/14/25 05:18
04/14/25
05:18
Niq-Q-Xlxhpymilfm Pept > 30270
LAB Results
04/15/25
09:04
Troponin I < 0.012
Physical Exam
Constitutional: No acute distress
EENT: Other (On 3L NC)
Cardiovascular: Rhythm & rate is regular, Pedal edema present and S1S2 is normal
Respiratory: Crackles Present
GI: Soft and Non tender
Neuro/Psych: Alert, Oriented and AO x 3
Data Reviewed
-
Date of Service: April 16, 2025
--- NOTE | 2025-04-16 14:08 | PTCARENOTE ---
Pt's Daughter Alysha and sister in law arrived at bedside to visit. Corporate Bond Trader notified. Adam further tapered per protocol, see flowsheet.
[2025-04-16] MEDS: SANTYL OINTMENT 1 APPLIC TOPICAL (15:24)
[2025-04-16 15:34] LABS: Hematocrit 24.2 % (37.0-47.0); Hemoglobin 7.3 g/dL (12.0-16.0); Mean Corp Hgb Conc. 30.2 g/dL (33.0-37.0); Mean Corpuscular Volume 99.6 fL (81.0-99.0); Platelet Count 83 10^3/uL (130-400); Red Cell Dist. Width 23.8 % (11.5-14.5)
[2025-04-16 15:57] LABS: Glucose - Point of Care 278 mg/dl (70-99)
--- NOTE | 2025-04-16 15:59 | CM ---
TPN, Today, WBC 13.1 then 12.1, Hgb 7.6 then 7.3, Cr. 1.9. weaning pressors. Discharge POC: Therapy continues to recommend SNF. Referrals previously forwarded.
[2025-04-16] MEDS: NOVOLIN R 5 UNITS IV (16:02)
[2025-04-16] MEDS: NOVOLIN R INSULIN INFUSION 100 IV (16:03)
[2025-04-16 16:21] LABS: Nucleated Red Blood Cells % 3.6 %
[2025-04-16 16:23] LABS: Anisocytosis 2+; Hypochromasia OCC; Macrocytosis 3+; Microcytosis 1+; Normal RBC Morphology No; Polychromasia 1+; Target Cells 1+
--- NOTE | 2025-04-16 16:23 | PTCARENOTE ---
CCGP restarted per orders. Bolus dose and infusion per protocol -see worklist.
[2025-04-16 16:24] LABS: Schistocytes Occasional
[2025-04-16] MEDS: NOVOLOG FLEXPEN SC (16:26)
--- NOTE | 2025-04-16 16:39 | PTCARENOTE ---
1 unit PRBCs ordered by attending for Hgb 7.3. Type and screen ordered per protocol.
[2025-04-16 17:13] LABS: Glucose - Point of Care 200 mg/dl (70-99)
--- NOTE | 2025-04-16 17:27 | PTCARENOTE ---
Pt crying out and pulling wraps off arms, removing pulse ox, difficult to understand her speech but she is saying 'help me' and states that she is in pain rated 10 'all down my back'...medicated with PRN Roxicodone at 17:27, see MAR. Repositioned
and replaced monitoring equipment. Emotional support provided. Awaiting Type and screen results at this time. Per orders, phenylephrine gtt stopped.
[2025-04-16 18:14] LABS: Glucose - Point of Care 155 mg/dl (70-99)
--- NOTE | 2025-04-16 18:34 | PTCARENOTE ---
1 unit PRBCs rec'd, TPN placed on hold per Dr. Cintron during blood administration d/t lack of sufficient access. Pt continues crying out for help. Unable to console.
[2025-04-16 19:09] LABS: Glucose - Point of Care 100 mg/dl (70-99)
[2025-04-16] MEDS: DEXTROSE 50% SYRINGE 12.5 GRAMS IV (20:13)
[2025-04-16 20:23] LABS: Glucose - Point of Care 57 mg/dl (70-99)
[2025-04-16 20:43] LABS: Glucose - Point of Care 118 mg/dl (70-99)
[2025-04-16] MEDS: LEVOPHED 258 MG IV (21:07)
[2025-04-16] MEDS: Parenteral Nutrition, Central 1330 IV (21:16)
[2025-04-16 21:59] LABS: Glucose - Point of Care 77 mg/dl (70-99)
[2025-04-16 23:05] LABS: Glucose - Point of Care 101 mg/dl (70-99)
[2025-04-17] VITALS (57 sets, daily range): BP systolic 50–139; BP diastolic 18–106; BMI 42.1
[2025-04-17 00:10] LABS: Glucose - Point of Care 114 mg/dl (70-99)
--- NOTE | 2025-04-17 00:11 | PTCARENOTE ---
insulin gtt per glycemic protocol remains off. double concentrated levo initiated and titrated up to maintain MAP goal, merrill gtt weaned off. pt repositioned frequently, PRN meds given for pain - see OCT. heparin and TPN continue. call chaves in reach.
[2025-04-17 01:21] LABS: Glucose - Point of Care 150 mg/dl (70-99)
[2025-04-17 03:19] LABS: Glucose - Point of Care 193 mg/dl (70-99)
[2025-04-17 03:35] LABS: Hematocrit 27.4 % (37.0-47.0); Hemoglobin 8.9 g/dL (12.0-16.0); Mean Corp Hgb Conc. 32.5 g/dL (33.0-37.0); Mean Corpuscular Volume 95.1 fL (81.0-99.0); Platelet Count 78 10^3/uL (130-400); Red Cell Dist. Width 22.9 % (11.5-14.5)
[2025-04-17 03:41] LABS: APTT 76.8 Sec (23.4-35.0)
[2025-04-17 04:01] LABS: ALT (SGPT) 14 U/L (0-35); AST (SGOT) 28 U/L (14-36); Albumin 2.6 g/dl (3.5-5.0); Alkaline Phosphatase 74 U/L (38-126); Blood Urea Nitrogen 103 mg/dl (7-17); Calcium 8.3 mg/dl (8.4-10.2); Carbon Dioxide 20 mmol/L (22-30); Chloride 105 mmol/L (98-107); Estimated Creatinine Clearance 24 ml/min; Glucose 197 mg/dl (70-99); LDH 375 U/L (120-246); Potassium 4.6 mmol/L (3.5-5.1); Sodium 133 mmol/L (135-145); Total Protein 5.6 g/dl (6.3-8.2); eGFR 22.81
[2025-04-17 04:17] LABS: Glucose - Point of Care 198 mg/dl (70-99)
[2025-04-17] MEDS: SYNTHROID 150 MCG PO (04:32)
[2025-04-17 05:15] LABS: Glucose - Point of Care 177 mg/dl (70-99)
[2025-04-17 06:43] LABS: Glucose - Point of Care 160 mg/dl (70-99)
[2025-04-17] MEDS: DESENEX/MITRAZOL/ZEASORB 1 APPLIC TOPICAL ×2 (08:54→22:04)
[2025-04-17] MEDS: NEURONTIN 100 MG PO (08:55)
[2025-04-17] MEDS: PACERONE 200 MG PO (08:55)
[2025-04-17] MEDS: MEGACE 20 MG PO ×2 (08:55→22:04)
[2025-04-17] MEDS: PROTONIX IV 40 MG IV (08:55)
[2025-04-17] MEDS: SANTYL OINTMENT 1 APPLIC TOPICAL (08:56)
[2025-04-17] MEDS: NSS (PRESERVATIVE FREE) 10 ML IV (08:56)
--- NOTE | 2025-04-17 09:06 | W.PN.INTV ---
Today's Communication / Plan
Recommendations
Plan reviewed with attending.
Goals of care conversations with family ongoing.
Assessment
-
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
status post robotic abdominoperineal resection, BIANKA/BSO, VRAM flap perineal reconstruction, 03/28. Patient admitted to ICU postoperatively given significant blood loss, hypotension requiring pressors.
Since last week, pt has gone up on pressor needs with stable leukocytosis, worsened pain control, and fluid retention. This morning she is reporting feeling better but is more somnolent. BUN 103. Continued on pressors. Draining purulent fluid in
rectal PRETTY drains. Continues on 4L oxygen. Tbili increasing 4.1.
Shock, hemorrhagic related to blood loss and likely post-op vasoplegia
Coagulopathy, suspect transfusion related. RUE negative for DVT
S/p robotic abdominoperineal resection, BIANKA/BSO, repair of vaginal defect, VRAM flap perineal reconstruction, 03/28/25
Concern for superficial necrosis of flap, s/p excisional debridement to muscle 10 x 30 cm with adjacent tissue transfer/ 04/03
OSMANY
Leukocytosis
Thrombocytopenia
Hyperkalemia
Hyperglycemia
Kleb UTI
cholelithiasis without acute cholecystitis
Conditions present prior to admission
History of CKD stage IIIb
Diabetes
Anal squamous cell cancer, stage III
Diagnosed November 2023
s/p chemotherapy/radiation at [facility]
Recurrence of disease per pelvic MRI January 2025
Follows oncology ([facility])
Atrial fibrillation on Eliquis
Now off amiodarone Per cardiology, remains on beta-joseph (Shadi)
Moderate pulm hypertension, echo March 2025, stable compared to prior echo
With dilated RV, normal function, PA pressure 66
Normal EF
Moderate mitral stenosis
History of stroke 1994 and again 2022 per patient
Suspected sleep apnea
Hypothyroidism
Plan:
Neuro:
Extubated and weaned off sedation
Rass goal 0
Pain control: Oxycodone 10mg. Gabapentin.
Cardio:
Shock, hemorrhagic related to blood loss and likely post-op vasoplegia. Continues on midodrine 10mg.
Attempted to wean pressors off yesterday attributing low BP to PAD. This morning, increasing pressor need Norepi 10
PO Amiodarone. Switched into sinus rhythm 04/15.
Chronic HFpEF - f/u CXR stable
Continue telemetry monitoring
Echo 04/08 demonstrated PASP 85 prior 66
EKG 04/15 demonstrated no changes.
Pulm:
Remains on low supplemental o2, wean to off. Currently 4L. Tachypnea improving.
Increased pleural effusions noted on CT and pulmonary vascular engorgement
Encourage I-S
Aspiration precautions
GI:
Diet advanced. Tolerating PO with continued poor appetite. Increased megace.
Stable ostomy output.
S/p robotic abdominoperineal resection, BIANKA/BSO, repair of vaginal defect, VRAM flap perineal reconstruction, 03/28/25
Continues TPN pending PO intake. Discussions with surgery surrounding TPN associated poor appetite. Consider stopping TPN to improve appetite.
Denies RUQ pain today. Seems to have cholelithiasis without acute cholecystitis with intermittent RUQ pain. Tbili increasing to 4.1
Colorectal following
PRETTY drains output purulent drainage.
Perineal flap is yellow sloughing.
ID:
Stable WBC off abx. Continue to hold abx
Patient returned to OR for excisional debridement 04/03- followed by plastics. Flap evaluated by surgeons today. Unstable for surgery at current moment.
Lactate WNL
Heme:
Follow CBC. Hgb continues to steadily reduce.
Continues on heparin drip with possibility of returning to OR. Awaiting surgery to transition back to home eliquis
:
Mild OSMANY - Decreased urine out put, dry mouth, also hypotensive. Weight improving
s/p > 2 ltr LR and Albumin 04/06. Albumin given 04/14
Follow creat, IOs. Cr increasing 2.2.
Urine outpt has decreased. No diuresis. Weight is down from yesterday but fluid +
Replete electrolytes as needed
Endocrine:
Placed back on insulin drip
accu checks q1
DVT prophylaxis: SCDs in place. Heparin. Awaiting okay from surgery to restart home eliquis
GI prophylaxis: Protonix
Data:
CXR 04/02/25- Low lung volumes with patchy bibasilar opacities, likely atelectasis and/or small effusion. No significant effusions or pneumothorax appreciated.
03/28/25- Nasogastric tube is present with tip near the gastroesophageal junction and distal sidehole in the distal esophagus. Consideration for advancement of this tube. Interstitial edema. Linear atelectasis in the right midlung. Mild to moderate
elevation of the left hemidiaphragm, new since previous radiograph. Probable small bilateral pleural effusions.
CT CAP 02/21/25- Circumferential anal wall thickening consistent with known malignancy versus posttreatment change. Probably stable. No evidence of metastatic disease. However, extremely limited exam without IV contrast. Tiny pericardial effusion.
Stable. Progressed small right and new tiny left pleural effusions. Findings suggesting moderate bilateral lower lobe and mild upper lobe pneumonia. New. Mild mediastinal lymphadenopathy. Probably reactive. Stable. Gallstones. Stable. Mild diffuse
bladder wall thickening. This can be seen with cystitis or bladder outlet obstruction. Improved.
Findings suggesting bilateral lower third spacing. Progressed
Echo 03/25/2025: Normal biventricular function with mildly dilated RV, moderate mitral stenosis, severe TR, PA pressure 66
Subjective Dataa
Subjective Data
Date of Service:
Date of Service: April 17, 2025
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
Subjective:
Pt reports feeling slightly better today. More somnolent upon answering questions. Reports controlled pain.
Objective Data
Data Reviewed
Vital Signs / I&O / Oxygen:
Vital Signs
Temp Pulse Resp BP Pulse Ox
98.5 F 74 14 111/89 98
04/17/25 08:00 04/17/25 08:54 04/17/25 08:01 04/17/25 08:54 04/17/25 08:01
Intake and Output
04/16/25 04/17/25 04/18/25
06:59 06:59 06:59
Intake Total 2787 / 2886 2944.0 / 3030.5 173.0 / 173.0
Output Total 2205 / 2205 1110 / 1110
Balance 582 / 681 1834.0 / 1920.5 173.0 / 173.0
SaO2 98
Nasal Cannula flow liters per 3
minute
Physical Exam
General: Comfortable, Poor Appetite and Other (NAD)
HEENT: Normocephalic, Anicteric and Moist Mucous Membranes
Cardiovascular: Regular Rhythm (converted to sinus last night from afib)
Respiratory: Clear (improved breath sounds bilaterally compared to yesterday), Wheeze, Crackles, Rhonchi and Non-Labored Respirations (tachypenic)
GI: Soft, Non Distended, Tender (diffuse tenderness) and Other (abdominal incisions are noted, sacral drain with purulent fluid, serous fluid in abdominal drain, sacral tissue is yellow)
Neurology: Awake, Alert and No Motor Deficits (Generally weak)
Skin: Warm, Good Color (Mild pallor) and Other (yellow sloughing of bottom, edematous third spacing in all 4 extremities)
Labs/Micro/Reports
Lab Data
04/17/25 03:12
04/17/25 03:12
Laboratory Results
04/17/25
03:12
APTT 76.8 H
[2025-04-17] MEDS: NOVOLOG FLEXPEN SC ×3 (09:09→16:45)
[2025-04-17 09:20] LABS: Glucose - Point of Care 123 mg/dl (70-99)
--- NOTE | 2025-04-17 09:26 | PTCARENOTE ---
Premeal glucose 0900 was 123. See [facility] flowsheet for details. Pt refused breakfast, was only able to eat small cup applesauce with meds and one bite of cream of wheat. She did drink 4 0z of cranberry juice. Pt turned and repositioned with assist of
3 people. Oral care and brewer care provided, back rubbed. Insulin gtt, heparin, TPN and double conc levo infusing, right chest wall SQ port and left DL PICC patent. Safe environment continues.
[2025-04-17] MEDS: HEPARIN 25000 UNITS/250 ML IV (11:13)
[2025-04-17] MEDS: LEVOPHED 258 MG IV (11:14)
--- NOTE | 2025-04-17 11:25 | W.PN.HOSP.TC ---
Today's Communication/Plan
-
Continue with TPN
Hemoglobin improved posttransfusion
Wean pressors as tolerated
remains on 2 pressors
Pain control.
Will ask nephro for input.
Assessment / Plan
Assessment / Plan
General: Well Developed, Well Nourished and Obese
HEENT: Normocephalic, Atraumatic
Respiratory: Rales and Non Labored Respirations
Cardiac: S1/S2 and Irregular Rhythm
Breast: Deferred by me
GI: Tender and Other (Draind at surgical site), ostomy
Genito-urinary: No Costovertebral Tender
Musculoskeletal: No Clubbing and No Cyanosis
Skin: Warm, diffuse anasarca noted
Neuro: Awake, Alert, Oriented and AO x 3
Psych: Calm
Impression:
Patient is a 74y F with PMH significant for A-Fib, CHF and anal cancer with recent recurrence who presented to on 03/28 for scheduled surgery for resection of recurrent malignancy. Patient underwent ureteroscopy with bilateral ureteral stents,
robotic APR, BIANKA / BSO, repair of vaginal defect and perineal reconstruction / flap on 03/28/25. She received 2 units PRBC and 1g TXA during the surgeries. Patient was successfully extubated post-op. She was on pressors post-op which were able to
be weaned, but have since been restarted at low dose to maintain adequate perfusion.
Medicine service was consulted for management of patient's multiple medical issues.
Patient Status post debridement on 04/03/2025 of flap to muscle. Pressure offloading per plastics surgery recs.
Worsening thrombocytopenia.
Heparin held, HIT antibody negative
Tolerating clear liquid
Blood pressure dropped and back to pressors
Assessment/plan:
Anal Cancer s/p Robotic APR, BIANKA/BSO, Repair of Vaginal Defect, Perineal Reconstruction / Flap
Concern for superficial necrosis of the flap
- Continue post-op care per surgical service(s). Pain control.
- Pain control. OOB/activity per surgery post op.
- IV Ancef transition to Zosyn and completed
- Status post debridement on 04/03/2025 of flap to muscle. Pressure offloading per plastics surgery recs
- Patient continued on TPN. Remains with poor appetite.
- Diet advanced to low residue-PO intake remains low. Megace was added.
- Plastic surgery correspondence noted with no plan for surgery. WBC down trended.
- CT abdomen pelvis done on 04/14/2024 and noted
Acute Blood Loss Anemia
Shock likely secondary to hemorrhagic and hypovolemia
- Received 6 units PRBCs total thus far (and 1 g TXA) and 2units of FFP and 10mg of Vitamin K. Hemoglobin at 8.9
- Currently on phenylephrine and levophed for BP support - wean as able. Midodrine 10mg TID. Status post albumin IV infusion.
- IV ppi. IVF has been stopped.
- Follow H&H and transfuse additional blood products if needed.
- CT scan abd/pelvis
- On high dose of midodrine. Wean pressors as Bp allows but remains difficult.
- Hgb at 8.9. Status post aggressive IV fluid resuscitation. Requiring pressors. Unclear at this point. Cortisol and TSH is normal
Non oliguria
OSMANY on CKD III with anasarca
- Monitor urinary output. Possibly due to cardiorenal syndrome with significant volume overload.
- BUN/Cr bumped further. Check urine lites.
Elevated bilirubin
Thrombocytopenia
-Place dropped as low as 38
-HIT at antibodies negative
-Platelet count improved.
-Heparin resumed
Moderate right pleural effusion
-Pleural effusion noted on the CAT scan
-If with Shortness of breath or worsening hypoxemia may need thoracentesis
-Monitor for now. Plan for diuresis
Vasovagal episode on 04/04/2025
- Likely multifactorial in the setting of shock, atrial fibrillation, hypovolemia, fluid shift
- Blood pressure stabilized to some extent. Remains on pressors.
Persistent Atrial Fibrillation
- now in RVR. IV amiodarone has been transition to po 200mg daily. Hep gtt started. Plan to hold off starting Eliquis for now.
- Lopressor IV at low dose with holding parameters for BP.
- Cardiology following
Anasarca likely secondary to iatrogenic fluid administration PRBC, FFP, IV fluids
- RUE venous doppler negative
- Patient has gained significant weight since admission
- Further diuresis on hold as patient with bump in creatinine and severe hypotension
Acute on chronic HFpEF
Severe pulmonary hypertension
- Diuresis has been difficult due to hypotension and pressor requirement
- Did receive Lasix earlier in the hospitalization.
- Cardiology following
Transaminitis likely secondary to shock
- LFTs are improved
Hypothermia
- Mild hypothermia post-op. Likely combination of anesthesia, blood loss, etc.
- resolved
Acute hypoxic respiratory insufficiency
- Wean O2 as tolerated.
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
-Back on IV insulin per critical care glycemic protocol
- A1C was 5.7 on 03/26/25.
Hypothyroidism
- TFTs normal in February of this year.
- Repeat TFTs given hypothermia- TSH wnl.
- Off IV synthroid. Cont w/home dose 150mcg
Hypocalcemia
Hypomagnesemia
Hypophosphatemia
Hypokalemia
-Replete and monitor
Mild hypernatremia
- Monitor for now. Improved
CODE STATUS: Full code
DVT prophylaxis: Heparin resumed
Anticipated Discharge: > 48 hours
Subjective/Interval History
-
Date of Service: April 17, 2025
States of abd pain
remains with poor appetite
Objective Data
-
Labs:
Laboratory Results
04/17/25
03:12
WBC 14.4 H
Hgb 8.9 L D
Hct 27.4 L
Plt Count 78 L
APTT 76.8 H
Sodium 133 L
Potassium 4.6
Chloride 105
Carbon Dioxide 20 L
BUN 103 H*
Creatinine 2.2 H
Glucose 197 H
Calcium 8.3 L
Total Bilirubin 4.2 H
AST 28
ALT 14
Alkaline Phosphatase 74
Vital Signs:
Vital Signs
Temp Pulse Resp BP Pulse Ox
98.5 F 111 17 91/73 99
04/17/25 08:00 04/17/25 11:00 04/17/25 11:00 04/17/25 11:00 04/17/25 11:00
I&O
04/16/25 04/17/25 04/18/25
06:59 06:59 06:59
Intake Total 2787 / 2886 2944.0 / 3030.5 530.2 / 530.2
Output Total 2205 / 2205 1110 / 1110 70 / 70
Balance 582 / 681 1834.0 / 1920.5 460.2 / 460.2
Data Reviewed
-
Total Time Spent with Patient (in minutes): 55
[2025-04-17 11:29] LABS: Glucose - Point of Care 131 mg/dl (70-99)
--- NOTE | 2025-04-17 12:10 | WOUNDNOTE ---
SACRUM (with photo flash)
--- NOTE | 2025-04-17 12:10 | WOUNDNOTE ---
[facility] RN note: Patient's colostomy appliance is D+I. Soft/loose brown stool in pouch. Appliance was changed by nursing on Monday. Sacral dressing changed. Flap incisional wound with yellow slough cover, dull blanchable red skin around wound. R
posterior hip PRETTY with purulent serous drainage. Skin on heels intact. Foam dressing applied to heels for protection. Patient turned to R lateral side position with help from RN Rand and FLOWER Otero. Heels off bed with pillow. Ostomy supplies in room.
Nursing can change ostomy appliance as needed. Discussed sacral flap wound with Dr. Bradford and Dr. Cintron. Norman texted Dr. Chen sacral flap wound picture asking if ABD pads can be used instead of foam dressing to cover saline gauze dressing d/t
large amount of yellow/jacinto drainage, PRETTY with purulent serous drainage. Dr. Chen agreeable to change in wound care order. Care plan to be updated.
--- NOTE | 2025-04-17 12:10 | WOUNDNOTE ---
[facility] RN note: Patient's colostomy appliance is D+I. Soft/loose brown stool in pouch. Appliance was changed by nursing on Monday. S
--- NOTE | 2025-04-17 12:50 | PTCARENOTE ---
Pt noted to be back in afib with some paced beats on tele-HR is low 100s right now.
--- NOTE | 2025-04-17 12:50 | W.PN.CRS1 ---
Today's Communication / Plan
-
As below
Assessment/Plan
-
74 yo female s/p adjunctive chemo now presenting for operative management of anal cancer
POD #20 RAL APR (CRS), vaginal defect repair with BIANKA/BSO (TIRE SORTER) and VRAM flap (Plastics)
POD #14 Excisional Debridement to muscle [id number] of superficial necrotic tissue, adjacent tissue transfer [id number]
Afebrile, VSS, Vaso off, levo 10, Adam 20
WBC 14.4 from 13.1, Hb 8.8 from 7.3, CR 2.2, UOP 450
�Slightly increasing leukocytosis; plan to discuss with Dr. Chen possible debridement of perineal wound as possible source for infection
-Continue low residue and Megace for appetite stimulant.
-Continue TPN with insulin gtt
�Maintain MAP greater than 65; wean pressors as tolerated; discussed with lan support specialist yesterday and felt septic shock is less likely
�If shock is felt to be due to infectious/septic source, would recommend restarting broad-spectrum antibiotics
�Increasing Cr with oliguria, appreciate primary
-Stoma nurse following for stoma care
�Continue twice daily dressing changes with Santyl
-c/w PRETTY drains, follow outputs
-IS while awake
-Analgesics prn, Tylenol scheduled.
-PPI for GI ppx
- Continue hep drip
-Medical management as per ICU/medicine teams
Subjective Data
Subjective Data
Date of Service: April 17, 2025
No overnight events. Patient still not eating much, but denies N/V. Having ostomy function. Was switched to adam and levo, vaso is off. Received a PRBC yesterday.
Objective Data
-
Vital Signs
Temp Pulse Resp BP Pulse Ox
97.6 F 103 12 95/75 97
04/17/25 11:47 04/17/25 12:02 04/17/25 12:02 04/17/25 12:02 04/17/25 12:02
Intake & Output
04/16/25 04/17/25 04/18/25
06:59 06:59 06:59
Intake Total 2787 / 2886 2944.0 / 3030.5 530.2 / 530.2
Output Total 2205 / 2205 1110 / 1110 70 / 70
Balance 582 / 681 1834.0 / 1920.5 460.2 / 460.2
Intake:
Oral fluids 450 / 450 440 / 440 118 / 118
IV fluids (Total) 1017 / 1061 694.0 / 725.5 137.2 / 137.2
Double concentrated 465 / 486 198 / 198
Neosynephrine
Heparin 264 / 275 264 / 275 55 / 55
Insulin 16.4 / 18.1 7.0 / 7.0
Neosyneprhrine 21 / 21
Norepinephrine 146.6 / 165.4 75.2 / 75.2
Vasopressin 288 / 300 48 / 48
TPN/PPN 1320 / 1375 1210 / 1265 275 / 275
Blood Products 350 / 350
Packed red blood cells 350 / 350
Blood Product Amount Infused ( 250 / 250
mL)
Packed Rbc Leukoreduced Unit 250 / 250
[id number]
Output:
Drain Output (Total) 495 / 495 410 / 410 70 / 70
Left Lower Abdomen Pierce- 50 / 50 20 / 20
Hoover
Right Lower Abdomen Pierce- 320 / 320 250 / 250 70 / 70
Hoover B
Sacrum Pierce-Sneha C 125 / 125 140 / 140
Urine, Roegrs 1560 / 1560 700 / 700
Urine, Voided 150 / 150
Other:
Number of unmeasured liquid
stools
Colostomy 25
Lab Results
04/17/25 03:12
04/17/25 03:12
Physical Exam
-
General: No Acute Distress and AOx3 (Alert and oriented, responding to questions appropriately)
HEENT: Grossly Normal
Abdomen: Soft, Non Distended, Non Tender, No Guarding, No Rebound and Other (JPs x 3 with serous output; ostomy pink and productive of stool; midline incision without erythema or drainage, well-approximated except for inferior 1 to 2 cm with minimal
separation and fibrinous exudate)
Rectal: Other (Deferred)
Skin: Warm and Dry
Wound: No Signs of Infection
--- NOTE | 2025-04-17 12:52 | W.CON.NEPH ---
Consultation
-
Date/Time Consultation Requested: 04/17/25 0838
Date/Time Consultation Performed: 04/17/25 1100
Requesting Provider: Francis Bhatti
Performing Provider: Sari Phelps
Reason for Consultation: OSMANY
Medical History
-
Chief Complaint: Anal cancer and s/p surg
History of Present Illness:
74y F with PMH significant for A-Fib AC with Eliquis, CKD stage3, CHF on diuretics, DM, Obesity, hypothyroidism and anal cancer with recent recurrence who presented to on 03/28 for scheduled surgery for resection of recurrent malignancy. Patient
underwent ureteroscopy with bilateral ureteral stents, robotic APR, BIANKA / BSO, repair of vaginal defect and perineal reconstruction / flap on 03/28/25. POst op she was monitored in ICU for hypotension and has been on and off pressors since then. SHe
is still on levo today along with midodrine. She underwent debridement of flap muscle on 03/31 with concerning of superficial necrosis of the flap. She received total of 6 units PRBC since the surgery. She also with poor po intake hence maintains
on TPN too. She also in Afib with RVR on Amiodarone , heaprin gtt. Through the course she has developed edema and diuresis is been challenging with hypotension and increasing cr. Hence nephrology consulted. Her cr baseline is variable 1.3-1.8 and
today at 2.2. BUN also increased to 103 from 89 on 04/16. Did receive PRBC yesterday for anemia.
Echo shows mod to severe TR with severe pulm HTN.
Past Medical History
Squamous Cell Cancer of the Anus
Persistent Atrial Fibrillation
Chronic HFpEF
ASCVD / CVA
Hypertension
DM-II
Hypothyroidism
Obesity
CKD stage3
Past Surgical History: Other (Robotic APR, BIANKA / BSO, Vaginal Defect Repair, Perineal Reconstruction / Flap (03/28/25) Tubal Ligation PPM Placement Port Placement Anal Biopsy)
Social History
Tobacco: Non-Smoker
Alcohol: Occasional
Drug: None
Family History
Family History: Unable to Obtain
Allergies / Home Medications
Allergy/AdvReac Type Severity Reaction Status Date / Time
sulfamethoxazole (From AdvReac hypotension Verified 04/14/25 18:25
Bactrim)
trimethoprim (From Bactrim) AdvReac hypotension Verified 04/14/25 18:25
�Medication �Instructions �Recorded �Confirmed �Type
cholecalciferol (vitamin D3) 25 1,000 units PO DAILY Supplement 07/31/21 03/28/25 History
mcg (1,000 unit) tablet
tamsulosin 0.4 mg capsule 0.4 mg PO DAILY Urinary issue 07/31/21 03/28/25 History
atorvastatin 40 mg tablet 40 mg PO HS High cholesterol 09/28/22 03/28/25 History
potassium chloride 20 mEq 20 meq PO HS Electrolyte Repletion 12/02/22 03/28/25 History
tablet,extended release
cyanocobalamin (vitamin B-12) 1,000 mcg PO DAILY #30 tabs 12/04/23 03/28/25 Rx
1,000 mcg tablet
ferrous sulfate 325 mg (65 mg 325 mg PO DAILY Supplement 12/04/24 03/28/25 History
iron) tablet (iron)
folic acid 1 mg tablet 1 mg PO DAILY Supplement 12/04/24 03/28/25 History
insulin degludec 100 unit/mL (3 8 unit SQ HS Diabetes 12/04/24 03/28/25 History
mL) subcutaneous pen (Tresiba
FlexTouch U-100 insulin)
furosemide 40 mg tablet 40 mg PO TUTH Fluid 02/18/25 03/28/25 History
Retention/Swelling
levothyroxine 150 mcg tablet 150 mcg PO DAILY Thyroid 02/19/25 03/28/25 History
apixaban 5 mg tablet (Eliquis) 5 mg PO BID #60 tabs 02/24/25 03/28/25 Rx
glipizide 5 mg tablet 2.5 mg (1/2 x 5 mg) PO DAILY #0 07/21/25 08/22/25 Rx
tabs
metoprolol succinate 25 mg 25 mg PO BID #30 tabs 02/24/25 03/28/25 Rx
tablet,extended release 24 hr
(Toprol XL)
metronidazole 500 mg tablet 500 mg PO .1400.1500.2200 Pre-op 03/26/25 03/28/25 History
PPX
neomycin 500 mg tablet 1,000 mg PO .1400.1500.2200 Pre-op 03/26/25 03/28/25 History
PPX
sodium sul 1.479 gram-potas ch 24 tab PO PER PKG DIR Pre-op prep 03/26/25 03/28/25 History
0.188 gram-magnes sul 0.225 gram
tablet (Sutab)
amoxicillin 500 mg capsule 500 mg PO BID Pre-op PPX 03/28/25 03/28/25 History
Review of Systems
-
Unable to obtain full review of systems at this time due to: Acuity
Physical Exam
Vital Signs
Vital Signs
Temp Pulse Resp BP Pulse Ox
97.6 F 103 12 95/75 97
04/17/25 11:47 04/17/25 12:02 04/17/25 12:02 04/17/25 12:02 04/17/25 12:02
Lab Results
WBC 14.4 10^3/uL (4.8-10.8) H 04/17/25 03:12
RBC 2.88 10^6/uL (4.20-5.40) L 04/17/25 03:12
Hgb 8.9 g/dL (12.0-16.0) L D 04/17/25 03:12
Hct 27.4 % (37.0-47.0) L 04/17/25 03:12
Plt Count 78 10^3/uL (130-400) L 04/17/25 03:12
Sodium 133 mmol/L (135-145) L 04/17/25 03:12
Potassium 4.6 mmol/L (3.5-5.1) 04/17/25 03:12
Chloride 105 mmol/L (98-107) 04/17/25 03:12
Carbon Dioxide 20 mmol/L (22-30) L 04/17/25 03:12
BUN 103 mg/dl (7-17) H* 04/17/25 03:12
Creatinine 2.2 mg/dL (0.6-1.0) H 04/17/25 03:12
eGFR 22.81 04/17/25 03:12
Glucose 197 mg/dl (70-99) H 04/17/25 03:12
Calcium 8.3 mg/dl (8.4-10.2) L 04/17/25 03:12
Phosphorus 4.5 mg/dl (2.5-4.5) 04/16/25 03:15
Wsb-P-Ntmgypmgaos Pept > 38821 pg/ml 04/14/25 05:18
Albumin 2.6 g/dl (3.5-5.0) L 04/17/25 03:12
Physical Exam
General: Awake, No Distress and Nontoxic
HEENT: EOMI, Anicteric and Conjunctivae Clear
Respiratory: Normal Excursion, Nonlabored Respirations and Other (coarse BS)
Cardiac: S1/S2, Murmur and Other (irregular )
Breast: Deferred by me
Abdomen: Soft, Nontender, Nondistended and Other (colostomy, midline incision healing )
Musculoskeletal: Edema (anasarca)
Skin: No Rash
Neuro: Nonfocal/Grossly Intact and Other (difficult to assess as pt is slow respond and sleeping )
Psych: Other (difficult to assess as pt is slow respond and sleeping)
Data Reviewed
-
Labs: Labs Reviewed by me, Discussed with Nurse and Discussed with Patient
Assessment/Plan
-
IMP:
Anal Cancer s/p Robotic APR, BIANKA/BSO, Repair of Vaginal Defect, Perineal Reconstruction / Flap 03/28
Concern for superficial necrosis of the flap s/p debridement 03/31
Acute Blood Loss Anemia
Shock likely secondary to hemorrhagic and hypovolemia
OSMANY on CKD III -cr 1.3-1.8
Elevated bilirubin
Thrombocytopenia
Moderate right pleural effusion
Vasovagal episode on 04/04/2025
Persistent Atrial Fibrillation
Acute on chronic HFpEF
Severe pulmonary hypertension
Transaminitis likely secondary to shock
Hypothermia
DM-II
Hypothyroidism
Hypocalcemia -corrected normal
Plan:
A/w elective ext surg for anal cancer on 03/28,
complicated course with hypotension, anemia, vol overload, Afib
OSMANY-baseline is variable 1.3-1.8, today at 2.2
barely non oliguric with brewer
check baseline UA and FEna. floran brewer
no hydro noted on CT on 04/14 with bilat cortical scarring suggesting CKD
given sig wt gain and edema she may be cardiorenal with severe pulm HTN
would try to continue diuretics as much possible , will give bumex 1mg today
azotemia -multifactorial could be from TPN, OSMANY, pulm HTN
her obligatory intake is high -would try to decrease intake as much as possible
BP are hard to maintain , pressors to keep MAP>65, cont midodrine
dose meds renally
avoid nephrotoxins
may consider RHC if no improvement in renal function
prognosis seem poor
CC time spent 45min
d/w nursing
d/w daughter and son on phone in detail about high risk of dialysis if no improvement in renal function and also reviewed that she will likely not tolerate HD with poor hemodynamics-they will think about it.
--- NOTE | 2025-04-17 12:55 | PN.DE.MGMTRT ---
Insulin Management
- -
04/17/2025: Diabetes Management Follow up
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 PMH anal sq. cell CA, pacemaker, diabetes, hypothyroid, obesity, a fib, HTN, ASCVD/CVA, HCL. Prior to admission was taking Tresiba 8 units @ HS with
glyburide 2.5 mg daily. States she has had diabetes 20 years, has glucose monitor. States she only took the glipizide if her glucose was > 135. A1C 5.7%, cr 1.4, eGFR 39.23-->1.6, eGFR 33.42 today.
Patient is awake and alert, oriented, resting in bed, states she feels very weak.
Patient still receiving TPN, diet was advanced to low residue, and NovoLog was changed to AC. Noted for poor appetite and barely eating her meals.
Yesterday was receiving lantus and novolog, glycemic protocol restarted for glucose 278 @ 15:48. Insulin infusion off from 8pm till 3am and restarted for glucose 193. Currently glucose 131 infusion @ 1.7. Will continue glycemic protocol insulin
infusion.
Discussed with Nurse.
Will cont to follow.
Diabetes History
- -
Type of Diabetes: 2 requiring insulin
Pre-Admission Diabetes Regimen
04/17/25
03:12
Creatinine 2.2 H
Lab Results
Hemoglobin A1c 5.7 % (4.0-5.6) H 03/26/25 10:51
Insulin Pump Settings
IP Diabetes Regimen
04/16/25 04/16/25 04/16/25
15:45 17:02 18:03
Glucose
POC Glucose 278 H 200 H 155 H
04/16/25 04/16/25 04/16/25
18:58 20:10 20:32
Glucose
POC Glucose 100 H 57 L 118 H
04/16/25 04/16/25 04/16/25
21:47 22:54 23:59
Glucose
POC Glucose 77 101 H 114 H
04/17/25 04/17/25 04/17/25
01:10 03:07 03:12
Glucose 197 H
POC Glucose 150 H 193 H
04/17/25 04/17/25 04/17/25
04:05 05:03 06:32
Glucose
POC Glucose 198 H 177 H 160 H
04/17/25 04/17/25
09:08 11:18
Glucose
POC Glucose 123 H 131 H
Meal type: Breakfast
Amount consumed: 0
Patient Education
[2025-04-17] MEDS: ROXICODONE 10 MG PO ×3 (13:21→22:04)
--- NOTE | 2025-04-17 13:23 | W.PN.CD ---
Today's Communication / Plan
-
Wean pressors as able
Poor prognosis GOC agree with
Impression / Plan
-
Impression
74y F with PMH significant for A-Fib, CHF and anal cancer with recent recurrence who presented to on 03/28 for scheduled surgery for resection of recurrent malignancy. Patient underwent ureteroscopy with bilateral ureteral stents, robotic APR,
BIANKA / BSO, repair of vaginal defect and perineal reconstruction / flap on 03/28/25. Patient was successfully extubated post-op. She was on pressors post-op which were able to be weaned, but have since been restarted to maintain adequate perfusion.
Plan
#Hemorrhagic/hypovolemic shock should be resolved now still requiring pressor support?
- s/p robotic abdominoperineal resection, repair of vaginal defect, robotic total laparoscopic hysterectomy, bilateral salpingo-oophorectomy, vertical rectus abdominis myocutaneous flap reconstruction of the perineum, cystoscopy and bilateral
ureteral stent insertion (03/28/25)
- post-op course complicated by hypotension requiring blood products, fluids, vasopressors
- s/p 5 U PRBC (4 on 03/28/2025 and 1 on 03/31/2025)
-Requiring BP support on phenylephrine now levophed wean as tolerated
- Maintain MAP > 65.
- random cortisol normal
- Patient likely third spacing
- Hemoglobin�8.9 today
# AFib now sinus
Telemetry reviewed
Heart rates in 80s, patient converted to sinus 04/15/2025
Continue amiodarone 200 mg
Continue heparin GTT
Resume Eliquis when appropriate
#Acute on Chronic HFpEF:
-Echo 04/08/2025�EF 60 to 65%,
-also with moderate mitral stenosis, mod/severe TR, severe pulm HTN
- Patient s/p 1 dose of IV Lasix 80 mg yesterday, weights down to 223 from 228, but needed pressor support with vasopressin in addition to phenylephrine. Vasopressin off today.
- Patient appears volume overloaded, with bilateral upper and lower extremity edema. Renal function�creatinine climbing up to 2.2. Patient on phenylephrine, and levo.
- Patient is off of IV fluids, hopefully she can be off of TPN as well (to reduce fluid load)-decision left to colorectal/surgery.
- On NC 3L, wean as able.
Rest of her chronic conditions management per primary team.
Physical Exam
Vital Signs/Labs
Vital Signs
Temp Pulse Resp BP Pulse Ox
97.6 F 96 18 95/76 100
04/17/25 11:47 04/17/25 13:00 04/17/25 13:00 04/17/25 12:30 04/17/25 13:00
04/16/25 04/17/25 04/18/25
06:59 06:59 06:59
Actual Weight 223 lb 12.307 oz 222 lb 14.197 oz
04/17/25 03:12
04/17/25 03:12
PT 21.5 Sec (11.4-14.6) H 04/04/25 14:51
INR 1.85 04/04/25 14:51
APTT 76.8 Sec (23.4-35.0) H 04/17/25 03:12
Magnesium 2.0 mg/dl (1.6-2.3) 04/16/25 03:15
Triglycerides 92 mg/dl (10-149) 04/14/25 05:18
04/14/25
05:18
Vte-Y-Tzikhxmyckp Pept > [id number]
LAB Results
04/15/25
09:04
Troponin I < 0.012
Physical Exam
Constitutional: No acute distress
EENT: Anicteric
Cardiovascular: Rhythm & rate is regular and Pedal edema present
Respiratory: Lungs clear to auscul.
GI: Soft
Neuro/Psych: Alert and Oriented
Data Reviewed
-
Date of Service: April 17, 2025
Medical Decision Making: Reviewed Test Results
EKG: Tracing Personally Visualized and interpreted (sr)
Echo: Report Reviewed by me
Labs: Labs Reviewed by me
[2025-04-17 13:36] LABS: GGTP 15 U/L (12-43)
[2025-04-17 13:37] LABS: Glucose - Point of Care 112 mg/dl (70-99)
[2025-04-17] MEDS: MERREM 500 MG IV (14:36)
[2025-04-17] MEDS: STERILE WATER FOR INJECTION 10 ML IV (14:36)
--- NOTE | 2025-04-17 14:59 | W.PN.UPDATE ---
Update Note
Progress Note Update
Discussion had today between Gustavo Santizo, and myself regarding patient's situation. Patient unfortunately still on pressors with leukocytosis and is more somnolent. Source of hypotension not entirely clear (?cardiac vs sepsis). I wonder
whether flap ischemia/necrosis may be playing a role here. Will resume empiric antibiotics (meropenem). Dr. Chen considering bedside flap debridement. Discussed situation with patient and her family at the bedside. Prognosis guarded.
[2025-04-17] MEDS: BUMEX 1 MG IV (15:40)
[2025-04-17 15:42] LABS: Glucose - Point of Care 111 mg/dl (70-99)
[2025-04-17 15:45] LABS: Urine Character Clear (Clear)
[2025-04-17 15:49] LABS: Urine Red Blood Cell 0-2 /HPF (0-2); Urine White Cell >100 /HPF (0-5)
--- NOTE | 2025-04-17 16:00 | PTCARENOTE ---
Levo was weaned to off over the course of this shift, BP 139/88 at 16:07. Continuing to monitor.
--- NOTE | 2025-04-17 16:20 | PTCARENOTE ---
Family has decided to make pt DNR/DNI. Dr. Cintron notified-he will come to bedside to confirm with family.
--- NOTE | 2025-04-17 16:36 | W.PN.UPDATE ---
Update Note
Progress Note Update
Had a goals of care discussion with the family, including the son Manuel and the daughter Alysha. Patient's [id number], Camryn, was also at bedside. We discussed her extended hospital course, her continued hypotension requiring vasopressors,
deconditioning with lethargic mental status and now with acute kidney injury and decompensated heart failure. Code status discussed and they would like her to be DNR/DNI. All questions were answered. Code status changed in [facility]. Primary
attending, Dr. Bradford, updated.
--- NOTE | 2025-04-17 17:42 | W.PN.PLAS ---
Today's Communication
-
Bedside wound debridement performed, wound packed with dilute Betadine wet-to-dry's. Will continue twice daily
Progress Note
Subjective Data
Patient interactive and responsive
Explained that I would be obtaining her consent for bedside debridement to clean up her backside wound. She expressed understanding.
Objective Data
Vital Signs
Temp Pulse Resp BP Pulse Ox
97.7 F 109 11 113/63 100
04/17/25 15:34 04/17/25 16:31 04/17/25 16:31 04/17/25 16:31 04/17/25 16:31
Intake and Output
04/16/25 04/17/25 04/18/25
06:59 06:59 06:59
Intake Total 2787 / 2886 2944.0 / 3030.5 1462.0 / 1462.0
Output Total 2205 / 2205 1110 / 1110 455 / 455
Balance 582 / 681 1834.0 / 1920.5 1007.0 / 1007.0
Intake:
Oral fluids 450 / 450 440 / 440 624 / 624
IV fluids (Total) 1017 / 1061 694.0 / 725.5 233.0 / 233.0
Double concentrated 465 / 486 198 / 198
Neosynephrine
Heparin 264 / 275 264 / 275 121 / 121
Insulin 16.4 / 18.1 14.2 / 14.2
Neosyneprhrine 21 / 21
Norepinephrine 146.6 / 165.4 97.8 / 97.8
Vasopressin 288 / 300 48 / 48
TPN/PPN 1320 / 1375 1210 / 1265 605 / 605
Blood Products 350 / 350
Packed red blood cells 350 / 350
Blood Product Amount Infused ( 250 / 250
mL)
Packed Rbc Leukoreduced Unit 250 / 250
[id number]
Output:
Drain Output (Total) 495 / 495 410 / 410 255 / 255
Left Lower Abdomen Pierce- 50 / 50 20 / 20
Hoover
Right Lower Abdomen Pierce- 320 / 320 250 / 250 225 / 225
Hoover B
Sacrum Pierce-Hoover C 125 / 125 140 / 140 30 / 30
Urine, Rogers 1560 / 1560 700 / 700 200 / 200
Urine, Voided 150 / 150
Other:
Number of unmeasured liquid
stools
Colostomy 25
Physical exam:
Interactive, some labored breathing but communicative
Anterior abdominal drains with large volume of thin serous fluid abdominal incision intact
Posterior incisional wound dehiscence with midline fibrinous material
No gross purulence
No evidence of superinfection
Lab Results
04/17/25 03:12
04/17/25 03:12
Wound Documentation
04/17/25 12:10 (created 04/17/25 13:34) Wound Note by Berenice Mathew
SACRAL/BUTTOCKS
Initialized on 04/17/25 13:34 - END OF NOTE
Assessment / Plan
Status post APR and VRAM flap complicated by potential DIC due to shock, blood volume loss leading to flap ischemia postop day 3 and 4. Taken back to the operating room for debridement and removal of nonviable flap with local tissue rearrangement
for pelvic floor closure. Superficial tissues were closed primarily in layers over a drain.
She subsequently developed what appears to be pressure related wound dehiscence. Notable attempts were made to reposition the patient for pressure offloading however given habitus and patient compliance, she remains largely supine. A pressure
offloading mattress was ordered to try to aid in relieving pressure on the wound.
Patient's overall comorbid status, inability to wean pressors, possible superimposed pneumonia, volume overload, heart failure, UTI have created uncertain tolerance for general anesthesia for return to OR. Furthermore there is notable concern she
has previously undiagnosed peripheral arterial disease. This could compromise the viability of a gracilis flap, which would be the next reasonable option. At present, her burden puts her at less risk than undergoing anesthesia. Without evidence
of gross infection of the wound, it is an unclear source of her persistent leukocytosis. Of note, there is no flap that is ischemic or necrotic that remains as it was removed at the last debridement. As such until her overall state improves and
she can tolerate anesthesia, the mainstay will have to be local wound care.
After conversation with the colorectal and metal furnace operator teams, decision was made to perform a superficial bedside debridement just to allow for packing of the wound and rule out a septic source. I explained this to the patient and performed the
bedside debridement after obtaining verbal consent today. The superficial fibrinous Was removed exposing approximately a 5 x 5 cm superficial cavity just below the skin. This was the area of fat necrosis that the drain was draining. This explains
the substance of the drain material. Again no gross purulence or evidence of necrotizing infection. The wound was packed with dilute Betadine wet-to-dry. An ABD pad and paper tape were placed over. Nursing staff to continue with twice daily
dressing changes.
I will continue to follow, but at present I do not have a reasonable indication that her wound is the source of her continued acute care needs. Should this change, we can reevaluate the relative risk of anesthesia for operative intervention.
[2025-04-17 17:48] LABS: Glucose - Point of Care 117 mg/dl (70-99)
[2025-04-17 20:36] LABS: Glucose - Point of Care 110 mg/dl (70-99)
[2025-04-17] MEDS: Parenteral Nutrition, Central 1340 IV (21:59)
[2025-04-17 22:18] LABS: Glucose - Point of Care 110 mg/dl (70-99)
[2025-04-18] VITALS (51 sets, daily range): BP systolic 75–124; BP diastolic 31–81; BMI 42.6
[2025-04-18] MEDS: NEO-SYNEPHRINE 1% 260 MG IV (00:17)
[2025-04-18 00:27] LABS: Glucose - Point of Care 112 mg/dl (70-99)
--- NOTE | 2025-04-18 00:33 | PTCARENOTE ---
BP dropping to 50-70s systolic, MAPs 40s, ICU A OPERATOR made aware and phenylephrine ordered and initiated
[2025-04-18 02:02] LABS: Glucose - Point of Care 125 mg/dl (70-99)
[2025-04-18] MEDS: STERILE WATER FOR INJECTION 10 ML IV ×2 (03:22→15:57)
[2025-04-18] MEDS: HEPARIN 25000 UNITS/250 ML IV ×2 (03:24→22:29)
[2025-04-18] MEDS: MERREM 500 MG IV ×2 (03:24→15:57)
[2025-04-18] MEDS: ROXICODONE 10 MG PO (03:25)
[2025-04-18] MEDS: LEVOPHED 258 MG IV ×3 (03:25→22:29)
[2025-04-18 03:43] LABS: APTT 75.2 Sec (23.4-35.0)
--- NOTE | 2025-04-18 03:50 | PTCARENOTE ---
heparin/levo/merrill/TPN/insulin gtts continue. wound care done. PRN pain meds given - see OCT. no other changes noted in assessment. care continues.
[2025-04-18 03:51] LABS: Hematocrit 28.9 % (37.0-47.0); Hemoglobin 8.9 g/dL (12.0-16.0); Mean Corp Hgb Conc. 30.8 g/dL (33.0-37.0); Mean Corpuscular Volume 95.4 fL (81.0-99.0); Platelet Count 74 10^3/uL (130-400); Red Cell Dist. Width 24.1 % (11.5-14.5)
[2025-04-18 03:58] LABS: Glucose - Point of Care 125 mg/dl (70-99)
[2025-04-18 04:03] LABS: Blood Urea Nitrogen 112 mg/dl (7-17); Calcium 8.3 mg/dl (8.4-10.2); Carbon Dioxide 23 mmol/L (22-30); Chloride 104 mmol/L (98-107); Estimated Creatinine Clearance 23 ml/min; Glucose 127 mg/dl (70-99); Potassium 4.2 mmol/L (3.5-5.1); Sodium 133 mmol/L (135-145); eGFR 21.62
[2025-04-18] MEDS: SYNTHROID 150 MCG PO (05:11)
[2025-04-18 05:59] LABS: Glucose - Point of Care 170 mg/dl (70-99)
--- NOTE | 2025-04-18 08:00 | PN.DE.MGMTRT ---
Insulin Management
- -
04/18/2025: Diabetes Management Follow up
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 PMH anal sq. cell CA, pacemaker, diabetes, hypothyroid, obesity, a fib, HTN, ASCVD/CVA, HCL. Prior to admission was taking Tresiba 8 units @ HS with
glyburide 2.5 mg daily. States she has had diabetes 20 years, has glucose monitor. States she only took the glipizide if her glucose was > 135. A1C 5.7%, Cr 1.4, eGFR 39.23-->2.1, eGFR 21.62 today.
Patient is awake and alert, oriented, resting in bed, states she feels very weak.
Pt is noted for continued hypotension requiring vasopressors, deconditioning with lethargic mental status and now with acute kidney injury and decompensated heart failure. Still receiving TPN, on low residue diet, with poor appetite and barely
eating her meals.
Glycemic protocol restarted for persistent Hyperglycemia.
Currently glucose range 125 to 170 receiving 1.2 to 2 units of insulin/hr
Will continue glycemic protocol insulin infusion. Discussed with Nurse. Will cont to follow.
Diabetes History
- -
Type of Diabetes: 2 requiring insulin
Pre-Admission Diabetes Regimen
04/18/25
03:12
Creatinine 2.3 H
Lab Results
Hemoglobin A1c 5.7 % (4.0-5.6) H 03/26/25 10:51
Insulin Pump Settings
IP Diabetes Regimen
04/17/25 04/17/25 04/17/25
09:08 11:18 13:26
Glucose
POC Glucose 123 H 131 H 112 H
04/17/25 04/17/25 04/17/25
15:30 17:36 20:25
Glucose
POC Glucose 111 H 117 H 110 H
04/17/25 04/18/25 04/18/25
22:02 00:16 01:51
Glucose
POC Glucose 110 H 112 H 125 H
04/18/25 04/18/25 04/18/25
03:12 03:47 05:48
Glucose 127 H
POC Glucose 125 H 170 H
Meal type: Breakfast
Amount consumed: 0
Patient Education
[2025-04-18] MEDS: NOVOLOG FLEXPEN SC ×3 (08:25→18:52)
[2025-04-18 08:33] LABS: Glucose - Point of Care 168 mg/dl (70-99)
[2025-04-18] MEDS: NSS (PRESERVATIVE FREE) 10 ML IV (09:19)
[2025-04-18] MEDS: SANTYL OINTMENT 1 APPLIC TOPICAL (09:19)
[2025-04-18] MEDS: PROTONIX IV 40 MG IV (09:19)
[2025-04-18] MEDS: MEGACE 20 MG PO ×2 (09:19→20:29)
[2025-04-18] MEDS: DESENEX/MITRAZOL/ZEASORB 1 APPLIC TOPICAL ×2 (09:20→20:29)
[2025-04-18] MEDS: PACERONE 200 MG PO (09:20)
--- NOTE | 2025-04-18 09:40 | W.PN.NEPH.PH ---
Today's Communication / Plan
-
lasix
Assessment/Plan
-
IMP:
Anal Cancer s/p Robotic APR, BIANKA/BSO, Repair of Vaginal Defect, Perineal Reconstruction / Flap 03/28
Concern for superficial necrosis of the flap s/p debridement 03/31
Acute Blood Loss Anemia
Shock likely secondary to hemorrhagic and hypovolemia
OSMANY on CKD III -cr 1.3-1.8
Elevated bilirubin
Thrombocytopenia
Moderate right pleural effusion
Vasovagal episode on 04/04/2025
Persistent Atrial Fibrillation
Acute on chronic HFpEF
Severe pulmonary hypertension
Transaminitis likely secondary to shock
Hypothermia
DM-II
Hypothyroidism
Hypocalcemia -corrected normal
Plan:
Follow BMP
Maintain MAP greater than 65
She is volume overloaded but hypotensive and also orthopneic with severe TR but normal EF
Given orthopnea we will continue to attempt diuresis
Prognosis is guarded
TPN per surgery
No emergent dialysis needs
Critical care time 35 minutes
-
-
Date of Service: April 18, 2025
CC / HPI / ROS
-
Chief Complaint:
OSMANY
History of Present Illness:
OSMANY/Cr slightly higher 2.3
Na low 133
on TPN
BP low stable on pressors
critically ill in ICU
weights rising
nonoliguric
Review of Systems:
no CP/SOB
orthopneic
Labs
-
Labs:
WBC 16.2 10^3/uL (4.8-10.8) H 04/18/25 03:12
RBC 3.03 10^6/uL (4.20-5.40) L 04/18/25 03:12
Hgb 8.9 g/dL (12.0-16.0) L 04/18/25 03:12
Hct 28.9 % (37.0-47.0) L 04/18/25 03:12
Plt Count 74 10^3/uL (130-400) L 04/18/25 03:12
Sodium 133 mmol/L (135-145) L 04/18/25 03:12
Potassium 4.2 mmol/L (3.5-5.1) 04/18/25 03:12
Chloride 104 mmol/L (98-107) 04/18/25 03:12
Carbon Dioxide 23 mmol/L (22-30) 04/18/25 03:12
BUN 112 mg/dl (7-17) H* 04/18/25 03:12
Creatinine 2.3 mg/dL (0.6-1.0) H 04/18/25 03:12
eGFR 21.62 04/18/25 03:12
Glucose 127 mg/dl (70-99) H 04/18/25 03:12
Calcium 8.3 mg/dl (8.4-10.2) L 04/18/25 03:12
Phosphorus 4.5 mg/dl (2.5-4.5) 04/16/25 03:15
Exv-V-Thavahdbpls Pept > 03338 pg/ml 04/14/25 05:18
Albumin 2.6 g/dl (3.5-5.0) L 04/17/25 03:12
Physical Exam
-
Vital Signs:
Vital Signs
Temp Pulse Resp BP Pulse Ox
98.6 F 109 18 94/71 100
04/18/25 03:39 04/18/25 06:00 04/18/25 06:00 04/18/25 06:00 04/18/25 06:00
Cardiovascular:: Regular rate and rhythm
Respiratory:: Bilateral: Coarse
Lung Excursion:: Normal
Abdomen:: Nontender and Soft
Bowel Sounds:: Decreased
Extremity Edema:: +3: Bilateral:
--- NOTE | 2025-04-18 09:52 | W.PN.INTV ---
Today's Communication / Plan
Recommendations
plan reviewed with attending.
Assessment
-
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
status post robotic abdominoperineal resection, BIANKA/BSO, VRAM flap perineal reconstruction, 03/28. Patient admitted to ICU postoperatively given significant blood loss, hypotension requiring pressors.
Since last week, pt has gone up on pressor needs with stable leukocytosis, worsened pain control, and fluid retention. Goal of care discussion with family yesterday. Code status DNR
This morning she is reporting feeling better but is more somnolent. BUN steadily increasing to 112 Cr 2.3. Bumex 1mg yesterday with no increase in urine output. Weight up today 102.2 from 101.1 yesterday. Continued on pressors Levo 16, Adam off.
Plastic surgeon performed bedside debridement yesterday finding source of cloudy draining, describing as necrotic but not purulent tissue. Continues on 4L oxygen. Pt reverted back into afib. BC pending back on abx meropenum.
Shock, hemorrhagic related to blood loss and likely post-op vasoplegia
Coagulopathy, suspect transfusion related. RUE negative for DVT
S/p robotic abdominoperineal resection, BIANKA/BSO, repair of vaginal defect, VRAM flap perineal reconstruction, 03/28/25
Concern for superficial necrosis of flap, s/p excisional debridement to muscle 10 x 30 cm with adjacent tissue transfer/ 04/03
OSMANY
Leukocytosis
Thrombocytopenia
Hyperkalemia
Hyperglycemia
Kleb UTI
cholelithiasis without acute cholecystitis
Conditions present prior to admission
History of CKD stage IIIb
Diabetes
Anal squamous cell cancer, stage III
Diagnosed November 2023
s/p chemotherapy/radiation at [facility]
Recurrence of disease per pelvic MRI January 2025
Follows [facility] ([facility])
Atrial fibrillation on Eliquis
Now off amiodarone Per cardiology, remains on beta-joseph (Shadi)
Moderate pulm hypertension, echo March 2025, stable compared to prior echo
With dilated RV, normal function, PA pressure 66
Normal EF
Moderate mitral stenosis
History of stroke 1994 and again 2022 per patient
Suspected sleep apnea
Hypothyroidism
Plan:
Neuro:
Extubated and weaned off sedation
Rass goal 0
Pain control: Oxycodone 10mg.
Cardio:
Shock, hemorrhagic related to blood loss and likely post-op vasoplegia. Continues on midodrine 10mg.
Attempted to wean pressors off yesterday attributing low BP to PAD. This morning, increasing pressor need Norepi 16
PO Amiodarone. Switched into sinus rhythm 04/15. Back in afib 04/18
Chronic HFpEF - f/u CXR stable
Continue telemetry monitoring
Echo 04/08 demonstrated PASP 85 prior 66
EKG 04/15 demonstrated no changes.
Pulm:
Remains on low supplemental o2, wean to off. Currently 4L. Tachypnea improving.
Increased pleural effusions noted on CT and pulmonary vascular engorgement
Encourage I-S
Aspiration precautions
GI:
Diet advanced. Tolerating PO with continued poor appetite. Increased megace.
Stable ostomy output.
S/p robotic abdominoperineal resection, BIANKA/BSO, repair of vaginal defect, VRAM flap perineal reconstruction, 03/28/25
Continues TPN pending PO intake. Discussions with surgery surrounding TPN associated poor appetite. Consider stopping TPN to improve appetite. Strict calorie counting
Denies RUQ pain today. Seems to have cholelithiasis without acute cholecystitis with intermittent RUQ pain. Tbili increasing to 4.1
Colorectal following
PRETTY drains output serous fluid
Perineal flap is yellow sloughing. Plastics performed bedside debridement yesterday.
ID:
Started meropenem yesterday for increasing leukocytosis.
BC pending
Patient returned to OR for excisional debridement 04/03- followed by plastics. Flap evaluated by surgeons today. Unstable for surgery at current moment, so bedside debridement performed with findings of necrotic tissue but no purulence
Lactate WNL
Heme:
Follow CBC. Hgb stable from unit of blood 04/16
Continues on heparin drip with possibility of returning to OR. Awaiting surgery to transition back to home eliquis
:
OSMANY - Decreased urine out put, dry mouth, also hypotensive. Weight increased today
s/p > 2 ltr LR and Albumin 04/06. Albumin given 04/14
Follow creat, IOs. Cr increasing 2.2.
Urine outpt has decreased depsite dose of Bumex yesterday.
Replete electrolytes as needed
Nephrology following
Endocrine:
Placed back on insulin drip
accu checks q1
DVT prophylaxis: SCDs in place. Heparin. Awaiting okay from surgery to restart home eliquis
GI prophylaxis: Protonix
Data:
CXR 04/02/25- Low lung volumes with patchy bibasilar opacities, likely atelectasis and/or small effusion. No significant effusions or pneumothorax appreciated.
03/28/25- Nasogastric tube is present with tip near the gastroesophageal junction and distal sidehole in the distal esophagus. Consideration for advancement of this tube. Interstitial edema. Linear atelectasis in the right midlung. Mild to moderate
elevation of the left hemidiaphragm, new since previous radiograph. Probable small bilateral pleural effusions.
CT CAP 02/21/25- Circumferential anal wall thickening consistent with known malignancy versus posttreatment change. Probably stable. No evidence of metastatic disease. However, extremely limited exam without IV contrast. Tiny pericardial effusion.
Stable. Progressed small right and new tiny left pleural effusions. Findings suggesting moderate bilateral lower lobe and mild upper lobe pneumonia. New. Mild mediastinal lymphadenopathy. Probably reactive. Stable. Gallstones. Stable. Mild diffuse
bladder wall thickening. This can be seen with cystitis or bladder outlet obstruction. Improved.
Findings suggesting bilateral lower third spacing. Progressed
Echo 03/25/2025: Normal biventricular function with mildly dilated RV, moderate mitral stenosis, severe TR, PA pressure 66
Subjective Dataa
Subjective Data
Date of Service:
Date of Service: April 18, 2025
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
Subjective:
Pt is feeling 'fine,' today. She reports controlled pain.
Objective Data
Data Reviewed
Vital Signs / I&O / Oxygen:
Vital Signs
Temp Pulse Resp BP Pulse Ox
98.6 F 109 18 94/71 100
04/18/25 03:39 04/18/25 06:00 04/18/25 06:00 04/18/25 06:00 04/18/25 06:00
Intake and Output
04/17/25 04/18/25 04/19/25
06:59 06:59 06:59
Intake Total 2944.0 / 3030.5 2560.2 / 2663.0 205.6 / 205.6
Output Total 1110 / 1110 1125 / 1125
Balance 1834.0 / 1920.5 1435.2 / 1538.0 205.6 / 205.6
SaO2 100
Nasal Cannula flow liters per 3
minute
Physical Exam
General: Comfortable, Poor Appetite and Other (NAD)
HEENT: Normocephalic, Anicteric and Moist Mucous Membranes
Cardiovascular: Regular Rhythm (converted to sinus last night from afib)
Respiratory: Clear (improved breath sounds bilaterally compared to yesterday), Wheeze, Crackles, Rhonchi and Non-Labored Respirations (tachypenic)
GI: Soft, Non Distended, Tender (diffuse tenderness) and Other (abdominal incisions are noted, sacral drain with purulent fluid, serous fluid in abdominal drain, sacral tissue is yellow)
Neurology: Awake, Alert (eyes clsoed upon speaking to her but appropriate responses and recollection of events) and No Motor Deficits (Generally weak)
Skin: Warm, Good Color (Mild pallor) and Other (yellow sloughing of bottom, edematous third spacing in all 4 extremities)
Labs/Micro/Reports
Lab Data
04/18/25 03:12
04/18/25 03:12
Laboratory Results
04/18/25
03:12
APTT 75.2 H
--- NOTE | 2025-04-18 10:05 | W.PN.CD ---
Today's Communication / Plan
-
Agree with bumex gtt
LV function normal on limited TTE today
Back in AF cont amio
Impression / Plan
-
Impression
74y F with PMH significant for A-Fib, CHF and anal cancer with recent recurrence who presented to on 03/28 for scheduled surgery for resection of recurrent malignancy. Patient underwent ureteroscopy with bilateral ureteral stents, robotic APR,
BIANKA / BSO, repair of vaginal defect and perineal reconstruction / flap on 03/28/25. Patient was successfully extubated post-op. She was on pressors post-op which were able to be weaned, but have since been restarted to maintain adequate perfusion.
Plan
#Hemorrhagic/hypovolemic shock should be resolved now still requiring pressor support?
- s/p robotic abdominoperineal resection, repair of vaginal defect, robotic total laparoscopic hysterectomy, bilateral salpingo-oophorectomy, vertical rectus abdominis myocutaneous flap reconstruction of the perineum, cystoscopy and bilateral
ureteral stent insertion (03/28/25)
- post-op course complicated by hypotension requiring blood products, fluids, vasopressors
- s/p 5 U PRBC (4 on 03/28/2025 and 1 on 03/31/2025)
-Requiring BP support on phenylephrine now levophed wean as tolerated
- Maintain MAP > 65.
- random cortisol normal
- Updated ECho shows normal LV function
- Hemoglobin�8.9 today
# AFib back IN AF
Telemetry reviewed
Heart rates in 80s, patient converted to sinus 04/15/2025
Continue amiodarone 200 mg
Continue heparin GTT
Resume Eliquis when appropriate
#Acute on Chronic HFpEF:
-Echo 04/08/2025�EF 60 to 65%,
-also with moderate mitral stenosis, mod/severe TR, severe pulm HTN
- Receiving lasix today
- Patient appears volume overloaded, with bilateral upper and lower extremity edema. Renal function�creatinine climbing up to 2.3. Patient on phenylephrine, and levo.
- Patient is off of IV fluids, hopefully she can be off of TPN as well (to reduce fluid load)-decision left to colorectal/surgery.
- bumex gtt
- On NC 3L, wean as able.
Rest of her chronic conditions management per primary team.
Physical Exam
Vital Signs/Labs
Vital Signs
Temp Pulse Resp BP Pulse Ox
98.6 F 109 18 94/71 100
04/18/25 03:39 04/18/25 06:00 04/18/25 06:00 04/18/25 06:00 04/18/25 06:00
04/17/25 04/18/25 04/19/25
06:59 06:59 06:59
Actual Weight 222 lb 14.197 oz 225 lb 4.999 oz
04/18/25 03:12
04/18/25 03:12
PT 21.5 Sec (11.4-14.6) H 04/04/25 14:51
INR 1.85 04/04/25 14:51
APTT 75.2 Sec (23.4-35.0) H 04/18/25 03:12
Magnesium 2.0 mg/dl (1.6-2.3) 04/16/25 03:15
Triglycerides 92 mg/dl (10-149) 04/14/25 05:18
04/14/25
05:18
Yml-K-Jnuzxftlkah Pept > 11521
Physical Exam
Constitutional: No acute distress and Comfortable
Cardiovascular: Rhythm/rate is irregular and Pedal edema present
Respiratory: Respiratory effort normal and Crackles Present
GI: Soft
Neuro/Psych: Alert and Oriented
Data Reviewed
-
Date of Service: April 18, 2025
Medical Decision Making: Reviewed Test Results
EKG: Tracing Personally Visualized and interpreted (af)
Echo: Tracing Personally Visualized and interpreted
Labs: Labs Reviewed by me
[2025-04-18 10:45] LABS: Glucose - Point of Care 127 mg/dl (70-99)
[2025-04-18] MEDS: LASIX 80 MG IV (11:12)
[2025-04-18 11:46] LABS: Glucose - Point of Care 123 mg/dl (70-99)
--- NOTE | 2025-04-18 11:55 | W.PN.CRS1 ---
Today's Communication / Plan
-
tpn
lasix
ID consult
Assessment/Plan
-
74 yo female s/p adjunctive chemo now presenting for operative management of anal cancer
POD #22 RAL APR (CRS), vaginal defect repair with BIANKA/BSO (SENIOR TRAINER) and VRAM flap (Plastics)
POD #16 Excisional Debridement to muscle [id number] of superficial necrotic tissue, adjacent tissue transfer [id number]
POD#1 bedside wound debridement - Paligia
Afebrile, VSS, Vaso off, levo, Adam
WBC 16.2 (14.4), Hb 8.9 (8.8) CR 2.2 (2.2), urine output 975ml
-Continue low residue and Megace for appetite stimulant.
-Continue TPN with insulin gtt (no plans to wean TPN at this time)
-Calorie count in place
�Maintain MAP greater than 65; wean pressors as tolerated; discussed with business proposal rep yesterday and felt septic shock is less likely
�ID consulted today
�Increasing Cr with oliguria, appreciate primary and nephrology - lasix ordered
-Stoma nurse following for stoma care
�Continue twice daily dressing changes with Santyl
-c/w PRETTY drains x2, follow outputs
-IS while awake
-Analgesics prn, Tylenol scheduled.
-PPI for GI ppx
- Continue hep drip
-Medical management as per ICU/medicine teams
-Patient made DNR. Dr. Bradford called her daughter, Alysha, earlier today.
Subjective Data
Procedure
20 RAL APR (CRS), vaginal defect repair with BIANKA/BSO (SENIOR TRAINER) and VRAM flap (Plastics)
14 Excisional Debridement to muscle [id number] of superficial necrotic tissue, adjacent tissue transfer [id number]
Subjective Data
Date of Service: April 18, 2025
Patient is sleepy. She says she is not in any abdominal pain but her backside hurts. Not eating much. Denies nausea or vomiting.
Objective Data
-
Vital Signs
Temp Pulse Resp BP Pulse Ox
98.6 F 116 12 94/65 99
04/18/25 03:39 04/18/25 10:30 04/18/25 10:30 04/18/25 10:30 04/18/25 10:30
Intake & Output
04/17/25 04/18/25 04/19/25
06:59 06:59 06:59
Intake Total 2944.0 / 3030.5 2560.2 / 2663.0 752.3 / 752.3
Output Total 1110 / 1110 1125 / 1125 495 / 495
Balance 1834.0 / 1920.5 1435.2 / 1538.0 257.3 / 257.3
Intake:
Oral fluids 440 / 440 624 / 624 250 / 250
IV fluids (Total) 694.0 / 725.5 661.2 / 708.0 222.3 / 222.3
Double concentrated 198 / 198
Neosynephrine
Heparin 264 / 275 253 / 264 55 / 55
Insulin 16.4 / 18.1 29.4 / 31.4
Neosyneprhrine 21 / 21 18 / 18
Norepinephrine 146.6 / 165.4 360.8 / 394.6 157.3 / 157.3
Vasopressin 48 / 48
TPN/PPN 1210 / 1265 1275 / 1331 280 / 280
Blood Products 350 / 350
Packed red blood cells 350 / 350
Blood Product Amount Infused ( 250 / 250
mL)
Packed Rbc Leukoreduced Unit 250 / 250
[id number]
Output:
Liquid stool amount 50 / 50
Colostomy 50 / 50
Drain Output (Total) 410 / 410 475 / 475 120 / 120
Left Lower Abdomen Pierce- 20 / 20
Hoover
Right Lower Abdomen Pierce- 250 / 250 435 / 435 120 / 120
Hoover B
Sacrum Pierce-Hoover C 140 / 140 30 / 30
Urine, Rogers 700 / 700 600 / 600 375 / 375
Lab Results
04/18/25 03:12
04/18/25 03:12
Physical Exam
-
General: No Acute Distress
Abdomen: Soft, Non Distended, Non Tender and Other (JPs x 2 with serous output; ostomy pink and productive of stool; midline incision without erythema or drainage, well-approximated except for inferior 1 to 2 cm with minimal separation and fibrinous
exudate)
Skin: Warm and Dry
--- NOTE | 2025-04-18 12:57 | W.PN.HOSP.TC ---
Today's Communication/Plan
-
Continue with meropenem. ID evaluation for further antibiotics management.? antifungal
Continue with TPN
Continue with pressors
Wean pressors as tolerated. Mentation seems to be fluctuating
DC standing Tylenol
Follow-up on the repeat blood cultures
Assessment / Plan
Assessment / Plan
General: Well Developed, Well Nourished and Obese
HEENT: Normocephalic, Atraumatic
Respiratory: Mild rhonchi anteriorly, oxygen, nonlabored respiration
Cardiac: S1/S2 and regular rhythm
Breast: Deferred by me
GI: Tender and Other (Drains at surgical site with serosanguineous drainage), ostomy
Genito-urinary: Rogers catheter with urine noted
Musculoskeletal: No Clubbing and No Cyanosis
Skin: Warm, diffuse anasarca noted with lower extremity and upper extremity edema
Neuro: Lethargic
Psych: Calm
Impression:
Patient is a 74y F with PMH significant for A-Fib, CHF and anal cancer with recent recurrence who presented to on 03/28 for scheduled surgery for resection of recurrent malignancy. Patient underwent ureteroscopy with bilateral ureteral stents,
robotic APR, BIANKA / BSO, repair of vaginal defect and perineal reconstruction / flap on 03/28/25. She received 2 units PRBC and 1g TXA during the surgeries. Patient was successfully extubated post-op. She was on pressors post-op which were able to
be weaned, but have since been restarted at low dose to maintain adequate perfusion.
Medicine service was consulted for management of patient's multiple medical issues.
Patient Status post debridement on 04/03/2025 of flap to muscle. Pressure offloading per plastics surgery recs.
Worsening thrombocytopenia.
Heparin held, HIT antibody negative
Tolerating clear liquid
Blood pressure dropped and back to pressors
Assessment/plan:
Anal Cancer s/p Robotic APR, BIANKA/BSO, Repair of Vaginal Defect, Perineal Reconstruction / Flap
Concern for superficial necrosis of the flap
- Pain control. OOB/activity
- IV Ancef transition to Zosyn and completed
- Flap ischemia status post debridement on 04/03/2025 of flap to muscle. Pressure offloading per plastics surgery recs
- Patient continued on TPN. Remains with poor appetite.
- Diet advanced to low residue-PO intake remains low. Megace was added.
- Plastic surgery did additional bedside debridement on 04/17/2025. Correspondence noted. Monitor PRETTY drain output. Offloading if tolerating. Wound care as per surgery.
- Patient was additionally started on meropenem
- CT abdomen pelvis done on 04/14/2024 and noted,
- Infectious disease consultation for further antibiotic management. Unclear if patient will require antifungal coverage.
Acute Blood Loss Anemia
Shock likely secondary to hemorrhagic and hypovolemia versus? Cardiogenic in the setting of severe pulmonary hypertension & R ventricular dysfunction versus sepsis (aspiration pneumonia, perineum wound)
- Received 6 units PRBCs total thus far (and 1 g TXA) and 2units of FFP and 10mg of Vitamin K. Hemoglobin at 8.9
- Currently on phenylephrine and levophed for BP support - wean as able. Midodrine 10mg TID. Status post albumin IV infusion.
- IV ppi. IVF has been stopped.
- Wean pressors as Bp allows but remains difficult.
- Hgb at 8.9. Status post aggressive IV fluid resuscitation. Requiring pressors.
- Cardiac etiology. .cortisol and TSH is normal. Adequate blood transfusion. Currently third spacing severe anasarca
- Follow-up on the blood culture results. Antibiotics started. Await further ID input
OSMANY on CKD III with anasarca
- Monitor urinary output. Possibly due to cardiorenal syndrome with significant volume overload.
- BUN/Cr bumped further. Status post Bumex yesterday. Not much urinary output. Plan for additional diuresis today with Lasix
- Nephrology following.
Acute on chronic HFpEF
Severe pulmonary hypertension and right ventricular dysfunction with severe tricuspid regurgitation
- Diuresis has been difficult due to hypotension and pressor requirement
- Currently receiving diuretics per nephrology. May require right heart catheterization.
- Cardiology following
Mild metabolic encephalopathy likely secondary to severe hypotension versus ICU delirium
- Monitor mentation closely. Receiving pain meds due to significant surgery.
Suspected severe peripheral arterial disease
Thrombocytopenia
-Place dropped as low as 38
-HIT at antibodies negative
-Platelet count improved.
-Heparin resumed
Moderate right pleural effusion
-Pleural effusion noted on the CAT scan
-If with Shortness of breath or worsening hypoxemia may need thoracentesis
-Monitor for now. Plan for diuresis
Vasovagal episode on 04/04/2025
- Likely multifactorial in the setting of shock, atrial fibrillation, hypovolemia, fluid shift
- Blood pressure stabilized to some extent. Remains on pressors.
Persistent Atrial Fibrillation
- now in RVR. IV amiodarone has been transition to po 200mg daily. Hep gtt started. Plan to hold off starting Eliquis for now.
- Lopressor IV at low dose with holding parameters for BP.
- Cardiology following
Anasarca likely secondary to iatrogenic fluid administration PRBC, FFP, IV fluids
- RUE venous doppler negative
- Patient has gained significant weight since admission
- Further diuresis on hold as patient with bump in creatinine and severe hypotension
Transaminitis likely secondary to shock
Elevated bilirubin
- AST also normal. Bump in bilirubin noted. GGT normal
Hypothermia
- Mild hypothermia post-op. Likely combination of anesthesia, blood loss, etc.
- resolved
Acute hypoxic respiratory insufficiency
- Wean O2 as tolerated.
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
-Back on IV insulin per critical care glycemic protocol
- A1C was 5.7 on 03/26/25.
Hypothyroidism
- TFTs normal in February of this year.
- Repeat TFTs given hypothermia- TSH wnl.
- Off IV synthroid. Cont w/home dose 150mcg
Hypocalcemia
Hypomagnesemia
Hypophosphatemia
Hypokalemia
-Replete and monitor
Mild hypernatremia
- Monitor for now. Improved
CODE STATUS: Full code
DVT prophylaxis: Heparin resumed
Anticipated Discharge: > 48 hours
Subjective/Interval History
-
Date of Service: April 18, 2025
Remains lethargic. Intermittently opens eyes and states of abdominal pain but then falls back asleep
On oxygen. Remains on pressors.
Objective Data
-
Labs:
Laboratory Results
04/18/25
03:12
WBC 16.2 H
Hgb 8.9 L
Hct 28.9 L
Plt Count 74 L
APTT 75.2 H
Sodium 133 L
Potassium 4.2
Chloride 104
Carbon Dioxide 23
BUN 112 H*
Creatinine 2.3 H
Glucose 127 H
Calcium 8.3 L
Vital Signs:
Vital Signs
Temp Pulse Resp BP Pulse Ox
98.6 F 116 12 94/65 99
04/18/25 03:39 04/18/25 10:30 04/18/25 10:30 04/18/25 10:30 04/18/25 10:30
I&O
04/17/25 04/18/25 04/19/25
06:59 06:59 06:59
Intake Total 2944.0 / 3030.5 2560.2 / 2663.0 752.3 / 752.3
Output Total 1110 / 1110 1125 / 1125 495 / 495
Balance 1834.0 / 1920.5 1435.2 / 1538.0 257.3 / 257.3
Data Reviewed
-
Total Time Spent with Patient (in minutes): 58
[2025-04-18 13:16] LABS: Glucose - Point of Care 128 mg/dl (70-99)
--- NOTE | 2025-04-18 13:46 | CON.ID ---
Consultation
-
Date/Time Consultation Requested: 04/18/25 12:50
Date/Time Consultation Performed: 04/18/25 13:47
Requesting Provider: Dr Gupta
Performing Provider: Dr Myers
Reason for Consultation: antibiotics
Chief Complaint / Past History
Chief Complaint
elective admission for resection of anal cancer
History of Present Illness
Ms Quesada is a 74 year old female with history notable for SCC of the anus s/p chemotherapy/radiation at [place] found to have recurrence of disease per pelvic MRI January 2025 who was electively admitted 03/28 for resection. She underwent robotic
abdominoperineal resection (APR) complicated by vaginal defect which was repaired same day, BIANKA/BSO and vertical rectus abdominis myocutaneous flap reconstruction of the perineum; surgery was complicated by 1L blood loss, hemorrhagic shock and
suspected vasoplegia. Course also notable for anemia requiring 6 units PRBCs total thus far (and 1 g TXA) and 2units of FFP and 10mg of Vitamin K. Course has been notable for superficial necrosis of the flap s/p debridement 04/03 to muscle.
Patient has required high dose pressors essentially since the OR. There was additional debridement 04/17/25. She has required TPN. Also CHF and Severe pulmonary hypertension and right ventricular dysfunction with severe tricuspid regurgitation
with volume overload and OSMANY. Finally course notable for delirium. She remains in the ICU with hypotension requiring pressors. 04/[address] of the abd/pelvis without IV contrast showed: no significant intraabdominal collections. On 04/17, yesterday
she undwent further debridement with serous fluid of the abdominal incision, she was noted to have Posterior incisional wound dehiscence with midline fibrinous material no evidence of purulence or superinfection noted. Her weight is up from 86 kg
on admission to 102 kg.
Past History
Additional Past Medical History:
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
heart failure, ESBL UTI, GERD/gastritis, history of lower GI bleed on anticoagulation
Additional Past Surgical History:
History of pacemaker 2022, tubal ligation
Allergy History:
sulfamethoxazole (From Bactrim) Adverse Reaction (Verified 04/14/25 18:25)
hypotension
trimethoprim (From Bactrim) Adverse Reaction (Verified 04/14/25 18:25)
hypotension
Medications Reviewed: Yes
Social History
Tobacco: Non-Smoker
Alcohol: Occasional
Drug: None
Family History
Family History: Not Pertinent
Review of Systems
Vital Signs
Temp Pulse Resp BP Pulse Ox
98.6 F 116 12 94/65 99
04/18/25 03:39 04/18/25 10:30 04/18/25 10:30 04/18/25 10:30 04/18/25 10:30
Physical Exam
Physical Exam
Constitutional: No Acute Distress and Chronically Ill
Cardiovascular: Regular Rate and S1/S2; Negative Murmur or Rub
Pulmonary: Clear and Symmetric; Negative Wheezes, Rales or Rhonchi
Gastrointestinal: Soft, Non Tender, Non Distended and Normal Bowel Sounds
Musculoskeletal: Other (photos of flap large amount of slough)
Skin: Warm and Dry; Negative Rash or Jaundice
Lab / Diagnostic Study Results
04/18/25 03:12
04/18/25 03:12
Abs Immat Gran (auto) 0.2 10^3/uL (0-0.05) H 04/16/25 14:39
Absolute Neuts (auto) 10.5 10^3/uL (1.4-6.5) H 04/16/25 14:39
Absolute Lymphs (auto) 0.6 10^3/uL (1.2-3.4) L 04/16/25 14:39
Absolute Monos (auto) 0.5 10^3/uL (0.1-0.6) 04/16/25 14:39
Absolute Basos (auto) 0.0 10^3/uL (0-0.2) 04/16/25 14:39
Immature Gran % 1.3 % (0-0.5) H 04/16/25 14:39
Neutrophils % 86.8 % (42.2-75.2) H 04/16/25 14:39
Lymphocytes % 5.3 % (20.5-51.1) L 04/16/25 14:39
Monocytes % 4.0 % (1.7-9.3) 04/16/25 14:39
Eosinophils % 2.4 % (0-6) 04/16/25 14:39
Basophils % 0.2 % (0-2) 04/16/25 14:39
PT 21.5 Sec (11.4-14.6) H 04/04/25 14:51
INR 1.85 04/04/25 14:51
Lactic Acid 1.0 mmol/L (0.7-2.0) 04/17/25 03:12
Urine WBC >100 /HPF (0-5) A 04/17/25 13:43
Ur Squamous Epith Cells 3-5 /LPF (Few) 04/17/25 13:43
Microbiology Results
Micro:
04/18/25 03:12 Blood Culture - Pending
Blood/Venous
Assessment / Plan
Persistent Shock - suspect cardiogenic
Superficial necrosis of abdominal flap
Possible Pneumonia, possible UTI
- blood cultures x2
- UA reflex to culture
- CXR
- 04/[address] without contrast: no fluid collections
- continue meropenem, add vancomycin; would not recommend antifungals at this time
- would consider RHC if consistent with goals of care
Care Review
Plan reviewed with: Physician (Dr Brizuela - persistent shock)
--- NOTE | 2025-04-18 14:06 | PHA.VAN.IN ---
Assessment
- Assessment
Renal Function: SCR Appears Elevated from baseline
Concomitant Antimicrobials: meropenem
Plan
- Plan
Initial / Loading Dose: 2000mg - administration pending
Maintenance Regimen: dosing by level
Monitoring: random 04/19 600
Pharmacokinetics Vancomycin I
- -
Patient Age: 74
Patient Sex: Female
Vancomycin Day #: 1
Indication: Skin And Soft Tissue
Requesting Provider: Dr. Myers
Pertinent Antimicrobial Allergies:
sulfamethoxazole / trimethoprim (From Bactrim) - hypotension
Height / Weight:
Height 5 ft 1 in
Actual Weight 102.2 kg
Pertinent Past Medical History: BMI~43, anal SCC, CKD
- Vital Signs / Lab Results
Temp Pulse Resp BP Pulse Ox
98.6 F 116 12 94/65 99
04/18/25 03:39 04/18/25 10:30 04/18/25 10:30 04/18/25 10:30 04/18/25 10:30
Lab Results - Hematology
04/16/25 04/16/25 04/17/25
03:15 14:39 03:12
WBC 13.1 H 12.1 H 14.4 H
04/18/25
03:12
WBC 16.2 H
Lab Results - Chemistry
04/16/25 04/17/25 04/18/25
03:15 03:12 03:12
BUN 89 H 103 H* 112 H*
Creatinine 1.9 H 2.2 H 2.3 H
Estimated Creat Clear 28 24
Albumin 2.6 L
04/16/25 04/16/25 04/16/25
03:15 14:39 18:21
Lactic Acid 1.7 2.9 H 3.2 H
04/17/25
03:12
Lactic Acid 1.0
Lab Results - Urine
04/17/25
13:43
Urine Nitrite Negative
Ur Leukocyte Esterase 3+ A
Urine WBC >100 A
Ur Squamous Epith Cells 3-5
Urine Bacteria Many A
--- NOTE | 2025-04-18 15:07 | CM ---
Episode A-Fib today, decreased urine output, strict calorie count, wean O2, TPN, IV/Meropenem, pressors. Discharge POC: SNF. Referrals previously forwarded.
[2025-04-18 16:11] LABS: Glucose - Point of Care 150 mg/dl (70-99)
[2025-04-18] MEDS: BUMEX 100 IV (16:22)
[2025-04-18] MEDS: VANCOCIN 540 MG IV (16:22)
[2025-04-18] MEDS: NOVOLIN R INSULIN INFUSION 100 IV (16:31)
--- NOTE | 2025-04-18 17:17 | WOUNDNOTE ---
[facility] RN note: Patient's colostomy appliance changed using Leedey wafer # [id number], Yaneth seal and Roddy pouch # [id number]. Stoma pale pink with slight mucocutaneous separation distally. +Peristomal rash (suspect yeast rash). Peristomal rash treated
with miconazole powder followed blotted by no sting barrier wipe. Small liquid brown stool in removed pouch (150 cc, FLOWER Lee made aware). Midline incision scabbed and approximated. Skin on heels blanchable red. See [facility] RN note from 04/17 regarding
sacral flap. Patient remains on Centrella Max Air. FLOWER Farris given update.
[2025-04-18 18:10] LABS: Glucose - Point of Care 114 mg/dl (70-99)
--- NOTE | 2025-04-18 18:53 | PTCARENOTE ---
Pt lethargic and confused speech at times. Weaning Levophed. Started on Bumex gtt per order. Afib HR 100-110s. +3 general edema and weeping. O2 weaned to 2L NC. Fine crackles noted at bilateral bases. Ostomy putting out brown stool. Poor
appetite. Ate 100% of eggs and 25% of cream of wheat for breakfast. Refused lunch completely and ate 25% of applesauce for dinner. Buttocks wound draining large amount serous fluid. All other assessments unchanged for 1200 and 1600.
[2025-04-18 18:54] LABS: Urine Character Clear (Clear)
[2025-04-18 18:59] LABS: Urine Squamous Cell 0-2 /LPF (Few)
[2025-04-18 19:01] LABS: Urine White Cell 16-20 /HPF (0-5)
[2025-04-18 20:20] LABS: Glucose - Point of Care 131 mg/dl (70-99)
[2025-04-18] MEDS: Parenteral Nutrition, Central 1340 IV (21:01)
--- NOTE | 2025-04-18 21:33 | PTCARENOTE ---
Pt received drowsy but awakens to name. Remains in afib on the monitor. Remains on bumex, levophed, insulin, heparin and TPN. Pt with large amt serous drainage from both arms-+4 anasarca noted. Remains on glycemic protocol. Turning pt side to side.
Assessment as charted.
[2025-04-18 22:14] LABS: Glucose - Point of Care 139 mg/dl (70-99)
[2025-04-19] VITALS (26 sets, daily range): BP systolic 90–129; BP diastolic 46–81; BMI 42.8
[2025-04-19 00:12] LABS: Glucose - Point of Care 167 mg/dl (70-99)
[2025-04-19] MEDS: MERREM 500 MG IV ×2 (01:55→14:13)
[2025-04-19] MEDS: STERILE WATER FOR INJECTION 10 ML IV ×2 (01:55→14:13)
[2025-04-19 02:19] LABS: Glucose - Point of Care 169 mg/dl (70-99)
[2025-04-19] MEDS: ROXICODONE 10 MG PO (03:44)
[2025-04-19 04:19] LABS: Glucose - Point of Care 145 mg/dl (70-99)
[2025-04-19 04:34] LABS: Blood Urea Nitrogen 119 mg/dl (7-17); Calcium 8.4 mg/dl (8.4-10.2); Carbon Dioxide 21 mmol/L (22-30); Chloride 103 mmol/L (98-107); Estimated Creatinine Clearance 23 ml/min; Glucose 137 mg/dl (70-99); Magnesium 2.2 mg/dl (1.6-2.3); Potassium 4.3 mmol/L (3.5-5.1); Sodium 132 mmol/L (135-145); eGFR 21.62
[2025-04-19 04:36] LABS: Hematocrit 26.6 % (37.0-47.0); Hemoglobin 8.4 g/dL (12.0-16.0); Mean Corp Hgb Conc. 31.6 g/dL (33.0-37.0); Mean Corpuscular Volume 95.3 fL (81.0-99.0); Platelet Count 66 10^3/uL (130-400); Red Cell Dist. Width 24.0 % (11.5-14.5)
[2025-04-19 04:50] LABS: APTT 80.1 Sec (23.4-35.0)
--- NOTE | 2025-04-19 04:51 | PTCARENOTE ---
No change in assessment. Pt continues to have large amts serous fluid weeping from both arms. Sacral dsg changed-also had copious amts serous drainage.
[2025-04-19] MEDS: SYNTHROID 150 MCG PO (05:10)
[2025-04-19 06:09] LABS: Glucose - Point of Care 155 mg/dl (70-99)
--- NOTE | 2025-04-19 07:48 | PHA.VAN.FU ---
Vancomycin Assessment / Plan
- Assessment
Renal Function: Stable
WBC's are: Stable
In the past 24 hrs, patient has been: Afebrile
Concomitant Antimicrobials: meropenem
patient on bumetanide drip
- Assessment - Therapeutic Drug Monitoring
Random Level: 17.3 - drawn ~11.5H after 2g loading dose
- Dosing Plan
Dosing by Level: Hold off on dosing today
- Monitoring Plan
Random Level: 04/20 06
- Follow Up
Pharmacy will continue to follow.
Vancomycin Follow UP
- -
Patient Age: 74
Patient Sex: Female
Vancomycin Day #: 2
Indication: Skin And Soft Tissue
Requesting Provider: Dr. Myers
Pertinent Antimicrobial Allergies:
sulfamethoxazole / trimethoprim (From Bactrim) - hypotension
Height / Weight:
Height 5 ft 1 in
Actual Weight 102.6 kg
Pertinent Past Medical History: BMI~43, anal SCC, CKD
- Vital Signs / Lab Results
Temp Pulse Resp BP Pulse Ox
97.6 F 114 13 116/60 97
04/19/25 07:28 04/19/25 07:00 04/19/25 07:00 04/19/25 07:00 04/19/25 07:00
Lab Results - Hematology
04/16/25 04/17/25 04/18/25
14:39 03:12 03:12
WBC 12.1 H 14.4 H 16.2 H
04/19/25
03:54
WBC 16.0 H
Lab Results - Chemistry
04/17/25 04/18/25 04/19/25
03:12 03:12 03:54
BUN 103 H* 112 H* 119 H*
Creatinine 2.2 H 2.3 H 2.3 H
Estimated Creat Clear
Albumin 2.6 L
04/16/25 04/16/25 04/17/25
14:39 18:21 03:12
Lactic Acid 2.9 H 3.2 H 1.0
Lab Results - Urine
04/18/25
18:30
Urine Nitrite (Reflex) Negative
Leukocyte Esterase Rfl 1+ A
Ur Squamous Epith Cells 0-2
Microbiology Results
04/18/25 03:12 Blood Culture - Preliminary
Blood/Venous No Growth in 24 hours- Final report to follow
Therapeutic Drug Monitoring
Random Vancomycin 17.3 ug/ml 04/19/25 03:54
[2025-04-19] MEDS: PROTONIX IV 40 MG IV (07:51)
[2025-04-19] MEDS: MEGACE 20 MG PO ×2 (07:51→21:30)
[2025-04-19] MEDS: NSS (PRESERVATIVE FREE) 10 ML IV (07:51)
[2025-04-19] MEDS: SANTYL OINTMENT 1 APPLIC TOPICAL (07:52)
[2025-04-19] MEDS: DESENEX/MITRAZOL/ZEASORB 1 APPLIC TOPICAL ×2 (07:52→21:30)
[2025-04-19] MEDS: PACERONE 200 MG PO (08:01)
--- NOTE | 2025-04-19 08:11 | W.PN.INTV ---
Today's Communication / Plan
Recommendations
TPN
Levophed
Bumex drip
Trend UOP
Pain control
Insert NGT given severely distended stomach seen on CXR this morning
Keep NPO for today
Repeat CXR tomorrow
Guarded prognosis
Assessment
-
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
status post robotic abdominoperineal resection, BIANKA/BSO, VRAM flap perineal reconstruction, 03/28. Patient admitted to ICU postoperatively given significant blood loss, hypotension requiring pressors.
Impression:
#Circulatory shock/hypotension - likely due to poor end-organ perfusion in setting of suspected severe PAD with possible sepsis
#Suspected sepsis - sources include urine, lung and skin; gallbladder ruled out
#Anemia + thrombocytopenia
#Severe stomach distension with no air seen in ostomy and distended gas-filled loops of bowel concerning for severe ileus vs SBO
#OSMANY on CKD (baseline creatinine approximately 1.4)
#Pulmonary hypertension with right ventricular dysfunction + dilatation and moderate�severe TR
#Acute HFpEF exacerbation
#Acute respiratory failure with hypoxia due to interstitial/alveolar edema in the setting of bilateral pleural effusions (R >L)
#Cholelithiasis without evidence of acute cholecystitis
#Generalized pain
#Morbid obesity
#Anal cancer s/p robotic APR with repair of vaginal defect, BIANKA�BSO and VRAM flap perineal reconstruction (03/28/2025)
#Advanced colorectal cancer s/p radiation with excisional debridement and adjacent tissue transfer (04/03/2025) - operative findings showed necrotic superficial tissue with viable deep muscle at the pelvic inlet
Plan:
- Since this past weekend (03/12 - 03/13), she has become increasingly lethargic; she also has received a large amount of narcotics for pain, as she is writhing in pain otherwise, although pain has improved last few days
- She has suspected PAD as per Dr. Chen - her deep, inferior epigastric vessels were extremely calcified; on 04/15, I performed an arterial line insertion procedure and her radial arteries on both extremities had almost no pulsatility likely due to
stiff arteries with severe calcification and PAD; this is likely systemic
- Ideally would obtain a CT angio abdominal aorta with runoff however in the setting of her OSMANY, would hold off for now and continue trending sCr
- If Cr improves then will check CTA abd aorta with runoff, requested by plastics, to assess gracilis flap blood supply
- Pt remains on levophed and we will continue titrating to keep MAP>65; replete calcium, and could consider albumin to keep serum level >3g/dL
- Continue diuresis as tolerated especially in the setting of her pulmonary hypertension with RV dysfunction with evidence of volume overload seen on chest imaging (bases of lungs on CT A/P from 04/04/2025).
- She is net (+) 17L since admission and she is up 35 pounds since admission as well
- Continue bumex gtt (started 04/18); Nephrology following; she is heading towards HD, recommend goals of care prior to initiating, monitor [K] and Tx for levels >5.5 - 6
- Although she recently completed about 7 days of Zosyn (04/05 - morning of 04/12) and remains afebrile (although had been getting tylenol at times), Abx resumed given her persistent leukoytcosis with concern for a lingering infection - source could be
due to aspiration pneumonia, wound on perineum vs UTI --> started meropenem 04/18; ID started IV vanc on 04/18; follow up set of blood cultures and urinen Cx (04/18)
- Stopped scheduled tylenol on 04/15 as I do not want to mask a fever and it did not seem to be helping her pain
- Continue pain control as tolerated and holding/adjusting dose/frequency if needed based on mental status
- Patient is in and out of A-fib; continue PO amio; replete K>4, Mg>2; cardiology on board, recs appreciated; heparin gtt
- Monitor PRETTY drain x3 output
- Aspiration precautions; maintain SpO2 >90-94%
- Maintain euglycemia with goal BG 140�180
- Pt is high aspiration risk; keep NPO given concern for SBO vs ileus this AM --> insert NGT and place onto LIWS; continue with TPNl, stopping this as soon as clinically necessary to help reduce volume being infused; unfortunately the patient has
very poor appetite and now has malnutrition despite her being obese
- Transfuse blood products if needed to keep Hb >7-8 g/dL + platelets >50k; continue heparin gtt with transition to NOAC when clinically appropriate; she initially was going to go back to OR this or next week, per plastic surgery, however given that
she appears more lethargic, she would not survive an operation at this time and the risks are too high
- Plastic surgery performed bedside wound debridement on 04/18--> fibrinous cap on the backside of her wound was removed and packed wet-to-dry with dilute betadine. No purulent fluid was seen and there was a small superficial cavity, also there were
features of typical pressure related injury seen
DVT ppx: heparin gtt
Stress ulcer ppx: PPI
Guarded prognosis - goals of care discussed on 04/16 and again today on 04/17 (see separate update note from 04/17 for details). Pt is now DNR/DNI but to continue full medical care. This was discussed with the patient's daughter, Alysha, son Manuel, and
[id number], Camryn - all questions were answered.
Continue ICU level of care for this critically ill patient
Critical care statement: A total of 43 minutes of critical care time was provided for this patient today. This includes management of unstable vital signs, evaluation of the patient at bedside, reviewing the patient�s pertinent medical records
including radiographs, microbiology, laboratory evaluations, and��discussion with primary team, consultants, pharmacy, nutrition, physical therapy, case management, charge nurse, critical care nursing, and respiratory therapy.
Data:
CXR 8/27/25- Low lung volumes with patchy bibasilar opacities, likely atelectasis and/or small effusion. No significant effusions or pneumothorax appreciated.
03/28/25- Nasogastric tube is present with tip near the gastroesophageal junction and distal sidehole in the distal esophagus. Consideration for advancement of this tube. Interstitial edema. Linear atelectasis in the right midlung. Mild to moderate
elevation of the left hemidiaphragm, new since previous radiograph. Probable small bilateral pleural effusions.
CT CAP 02/21/25- Circumferential anal wall thickening consistent with known malignancy versus posttreatment change. Probably stable. No evidence of metastatic disease. However, extremely limited exam without IV contrast. Tiny pericardial effusion.
Stable. Progressed small right and new tiny left pleural effusions. Findings suggesting moderate bilateral lower lobe and mild upper lobe pneumonia. New. Mild mediastinal lymphadenopathy. Probably reactive. Stable. Gallstones. Stable. Mild diffuse
bladder wall thickening. This can be seen with cystitis or bladder outlet obstruction. Improved.
Findings suggesting bilateral lower third spacing. Progressed
Echo 03/25/2025: Normal biventricular function with mildly dilated RV, moderate mitral stenosis, severe TR, PA pressure 66
Subjective Dataa
Subjective Data
Date of Service:
Date of Service: April 19, 2025
Chief Complaint: Methods Analyst Follow Up and Pulmonary Follow Up
Subjective:
Patient seen and evaluated this morning. There is no stool or gas seen in her ostomy bag. She is confused this morning, mumbling words and uncomfortable at times. Currently on insulin drip at 1.7 units/h, Levophed at 10 mcg/min, and heparin drip.
Also on Bumex drip at 2 mg/h and she is making urine. Current heart rate 130, BP 81/67 and saturating 94% on 2L/min.
Review of Systems
General: Other (Unobtainable given patient's acute clinical status)
Objective Data
Data Reviewed
Vital Signs / I&O / Oxygen:
Vital Signs
Temp Pulse Resp BP Pulse Ox
97.6 F 126 20 116/57 94
04/19/25 07:28 04/19/25 09:00 04/19/25 09:00 04/19/25 09:00 04/19/25 09:00
Intake and Output
04/18/25 04/19/25 04/20/25
06:59 06:59 06:59
Intake Total 2560.2 / 2663.0 2735.7 / 2827.2 274.5 / 274.5
Output Total 1125 / 1125 1595 / 1595
Balance 1435.2 / 1538.0 1140.7 / 1232.2 274.5 / 274.5
SaO2 94
Nasal Cannula flow liters per 2
minute
Physical Exam
General: Respiratory Distress (negative), Poor Appetite and Other (NAD; appears uncomfortable at times)
HEENT: Normocephalic and Anicteric
Cardiovascular: Irregular Rhythm (Irregularly irregular) and Peripheral Edema (+4 bilateral pitting edema/anasarca)
Respiratory: Wheeze (negative), Crackles (Bilateral), Rhonchi (negative), Accessory Resp Muscle Use (negative) and Stridor (negative)
GI: Soft, Distended (Abdominal obesity), Tender (diffuse tenderness), Other (abdominal incisions are noted, sacral tissue is yellow) and Other (LLQ ostomy with no gas or stool seen in bag)
Neurology: Tremors (negative) and Lethargic (Awakens to verbal stimuli)
Skin: Warm, Good Color (Mild pallor), Jaundice (negative) and Other (yellow sloughing of bottom, edematous third spacing in all 4 extremities)
Labs/Micro/Reports
Lab Data
04/19/25 03:54
04/19/25 03:54
Laboratory Results
04/19/25 04/19/25
03:54 04:27
APTT Cancelled 80.1 H
Microbiology
04/18/25 03:12 Blood/Venous Blood Culture - Preliminary
No Growth in 24 hours- Final report to follow
[2025-04-19 08:17] LABS: Glucose - Point of Care 156 mg/dl (70-99)
--- NOTE | 2025-04-19 08:44 | W.PN.ID1 ---
Date of Service
Date of Service: April 19, 2025
Today's Communication
- continue meropenem, vancomycin; would not recommend antifungals at this time
- would consider RHC if consistent with goals of care
Assessment / Plan
Persistent Shock - suspect cardiogenic
Superficial necrosis of abdominal flap
Possible Pneumonia, possible UTI
- blood cultures x2 in progress
- UA reflex to culture; markedly improved pyuria compared to 04/17
- CXR - most likely pulmonary edema/ARDS
- 04/[address] without contrast: no fluid collections
- continue meropenem, vancomycin; would not recommend antifungals at this time
- would consider RHC if consistent with goals of care
- Patient remains persistently critically ill, would consider goals of care
Chief Complaint
-: Other (cardiogenic shock, wound dehiscence)
Subjective / Review of Systems
afebrile
bp stable
not responsive
Vital Signs / Physical Exam
Vital Signs
Vital Signs
Temp Pulse Resp BP Pulse Ox
97.6 F 122 14 117/70 96
04/19/25 07:28 04/19/25 08:01 04/19/25 08:00 04/19/25 08:01 04/19/25 08:04
Physical Exam
Constitutional: No Acute Distress
Cardiovascular: Regular Rate and S1/S2; Negative Murmur or Rub
Pulmonary: Clear and Symmetric; Negative Wheezes or Rales
Gastrointestinal: Soft, Non Tender, Non Distended and Normal Bowel Sounds
Skin: Warm and Dry; Negative Rash or Jaundice
Lines: Other (port accessed)
Objective Data
Lab Data
Lab Results
04/19/25 03:54
04/19/25 03:54
PT 21.5 Sec (11.4-14.6) H 04/04/25 14:51
INR 1.85 04/04/25 14:51
APTT 80.1 Sec (23.4-35.0) H 04/19/25 04:27
Estimated Creat Clear 23 ml/min 04/19/25 03:54
Lactic Acid 1.0 mmol/L (0.7-2.0) 04/17/25 03:12
Total Bilirubin 4.2 mg/dl (0.2-1.3) H 04/17/25 03:12
GGT 15 U/L (12-43) 04/17/25 03:12
AST 28 U/L (14-36) 04/17/25 03:12
ALT 14 U/L (0-35) 04/17/25 03:12
Alkaline Phosphatase 74 U/L (38-126) 04/17/25 03:12
Most recent labs reviewed.
Micro Results:
04/18/25 03:12 Blood Culture - Preliminary
Blood/Venous No Growth in 24 hours- Final report to follow
04/18/25 17:48 Blood Culture - Pending
Blood/Venous
04/18/25 18:30 Urine Culture - Pending
Urine
--- NOTE | 2025-04-19 09:16 | PTCARENOTE ---
Rec'd care of patient at 0700. Patient lethargic. Arousable to verbal stimuli. Oriented to self and place. Pupils equal and reactive; +3mm. MAEx4. Anxious/tearful at times. Confused with nonsensical speech. Afib on tele. Rate in the 110-120's.
Generalized anasarca. Weeping a large amount from b/l UE. Doppler pulses. Pulse ox 96% on 2L nc. Lung sounds shallow, diminished throughout. Scattered crackles posteriorly. Hypo BS. No output from colostomy. Stoma pink, budded. Abdominal incision
approximated, videotape recording engineer. PRETTY drains x2 with serous drainage (R>L). Flap wound care performed by previous RN, dressing c/d/i. Rogers in place. Heparin/Levophed infusing through R SQ port. TPN/Bumex/Insulin infusing through LDL PICC. GP maintained.
--- NOTE | 2025-04-19 09:53 | W.PN.NEPH.PH ---
Today's Communication / Plan
-
increase bumex gtt
Assessment/Plan
-
IMP:
Anal Cancer s/p Robotic APR, BIANKA/BSO, Repair of Vaginal Defect, Perineal Reconstruction / Flap 03/28
Concern for superficial necrosis of the flap s/p debridement 03/31
Acute Blood Loss Anemia
Shock likely secondary to hemorrhagic and hypovolemia
OSMANY on CKD III -cr 1.3-1.8
Elevated bilirubin
Thrombocytopenia
Moderate right pleural effusion
Vasovagal episode on 04/04/2025
Persistent Atrial Fibrillation
Acute on chronic HFpEF
Severe pulmonary hypertension
Transaminitis likely secondary to shock
Hypothermia
DM-II
Hypothyroidism
Hypocalcemia -corrected normal
Plan:
Follow BMP
Maintain MAP greater than 65
She is volume overloaded but hypotensive and also orthopneic with severe TR but normal EF
Given orthopnea we will continue to attempt diuresis, increase bumex gtt
Prognosis is guarded
TPN per surgery, she is cleared for diet, but not eating
No emergent dialysis needs
Critical care time 31 minutes
-
-
Date of Service: April 19, 2025
CC / HPI / ROS
-
Chief Complaint:
OSMANY
History of Present Illness:
OSMANY/Cr holding 2.3
Na low 132
on TPN
BP low stable on pressors
critically ill in ICU
weights rising
nonoliguric
Review of Systems:
no CP/SOB
orthopneic
Labs
-
Labs:
WBC 16.0 10^3/uL (4.8-10.8) H 04/19/25 03:54
RBC 2.79 10^6/uL (4.20-5.40) L 04/19/25 03:54
Hgb 8.4 g/dL (12.0-16.0) L 04/19/25 03:54
Hct 26.6 % (37.0-47.0) L 04/19/25 03:54
Plt Count 66 10^3/uL (130-400) L 04/19/25 03:54
Sodium 132 mmol/L (135-145) L 04/19/25 03:54
Potassium 4.3 mmol/L (3.5-5.1) 04/19/25 03:54
Chloride 103 mmol/L (98-107) 04/19/25 03:54
Carbon Dioxide 21 mmol/L (22-30) L 04/19/25 03:54
BUN 119 mg/dl (7-17) H* 04/19/25 03:54
Creatinine 2.3 mg/dL (0.6-1.0) H 04/19/25 03:54
eGFR 21.62 04/19/25 03:54
Glucose 137 mg/dl (70-99) H 04/19/25 03:54
Calcium 8.4 mg/dl (8.4-10.2) 04/19/25 03:54
Phosphorus 4.5 mg/dl (2.5-4.5) 04/16/25 03:15
Dih-A-Dmqlvuzzrhu Pept > 68529 pg/ml 04/14/25 05:18
Albumin 2.6 g/dl (3.5-5.0) L 04/17/25 03:12
Physical Exam
-
Vital Signs:
Vital Signs
Temp Pulse Resp BP Pulse Ox
97.6 F 126 20 116/57 94
04/19/25 07:28 04/19/25 09:00 04/19/25 09:00 04/19/25 09:00 04/19/25 09:00
Cardiovascular:: Regular rate and rhythm
Respiratory:: Bilateral: Coarse
Lung Excursion:: Normal
Abdomen:: Nontender and Soft
Bowel Sounds:: Normal
Extremity Edema:: +3: Bilateral:
[2025-04-19] MEDS: NOVOLOG FLEXPEN 2 UNITS SC (10:25)
[2025-04-19 10:31] LABS: Glucose - Point of Care 165 mg/dl (70-99)
[2025-04-19] MEDS: LEVOPHED 258 MG IV (10:39)
--- NOTE | 2025-04-19 10:49 | W.PN.GS2 ---
Today's Communication / Plan
-
`
Assessment / Plan
-
74 yo female s/p adjunctive chemo now presenting for operative management of anal cancer
POD #23 RAL APR (CRS), vaginal defect repair with BIANKA/BSO (LIQUOR CLERK) and VRAM flap (Plastics)
POD #17 Excisional Debridement to muscle [id number] of superficial necrotic tissue, adjacent tissue transfer [id number]
POD #2 bedside wound debridement with plastics
Plan: continue current supportive care
P.o. intake as tolerated
TPN renewed
Medical management as per ICU/medicine teams
OK for therapeutic AC if needed (IV heparin), but would hold off on PO agent until better bowel function.
Subjective Data
-
Date of Service: April 19, 2025
Patient seen and examined with hospitalist at bedside as well.
Somnolent but responsive and answers a few questions.
Denies significant pain at the moment
Objective Data
-
Intake and Output
25 25 04/20/25
06:59 06:59 06:59
Intake Total 2560.2 / 2663.0 2735.7 / 2827.2 366.3 / 366.3
Output Total 1125 / 1125 1595 / 1595 645 / 645
Balance 1435.2 / 1538.0 1140.7 / 1232.2 -278.7 / -278.7
Intake:
Oral fluids 624 / 624 500 / 500
IV fluids (Total) 661.2 / 708.0 891.7 / 927.2 142.3 / 142.3
Heparin 253 / 264 264 / 275 44 / 44
Insulin 29.4 / 31.4 40.6 / 42.3 7.1 / 7.1
Neosyneprhrine 18 / 18
Norepinephrine 360.8 / 394.6 539.1 / 557.9 75.2 / 75.2
bumex 48 / 52 16
TPN/PPN 1275 / 1331 1344 / 1400 224 / 224
Output:
Liquid stool amount 50 / 50 150 / 150
Colostomy 50 / 50 150 / 150
Drain Output (Total) 475 / 475 550 / 550 120 / 120
Left Lower Abdomen Pierce- 10 / 10 10
Hoover
Right Lower Abdomen Pierce- 435 / 435 540 / 540 120 / 120
Hoover B
Sacrum Pierce-Hoover C 30 / 30
Urine, Rogers 600 / 600 895 / 895 525 / 525
Vital Signs
Temp Pulse Resp BP Pulse Ox
97.6 F 120 16 108/72 97
04/19/25 07:28 04/19/25 10:00 04/19/25 10:00 04/19/25 10:00 04/19/25 10:00
Lab Results
04/19/25 03:54
04/19/25 03:54
Calcium 8.4 mg/dl (8.4-10.2) 04/19/25 03:54
Phosphorus 4.5 mg/dl (2.5-4.5) 04/16/25 03:15
Magnesium 2.2 mg/dl (1.6-2.3) 04/19/25 03:54
Total Bilirubin 4.2 mg/dl (0.2-1.3) H 04/17/25 03:12
Direct Bilirubin 2.7 mg/dl (0.0-0.4) H 04/17/25 03:12
AST 28 U/L (14-36) 04/17/25 03:12
ALT 14 U/L (0-35) 04/17/25 03:12
Alkaline Phosphatase 74 U/L (38-126) 04/17/25 03:12
Total Protein 5.6 g/dl (6.3-8.2) L 04/17/25 03:12
Albumin 2.6 g/dl (3.5-5.0) L 04/17/25 03:12
Physical Exam
-
NAD, somnolent in hospital bed
ABD: soft, distended, tenderness to palpation around the incision site.
Stoma pink and appliance in place -dry and decompressed at the moment
JPs with straw-colored serous fluid
[2025-04-19 12:18] LABS: Glucose - Point of Care 151 mg/dl (70-99)
--- NOTE | 2025-04-19 12:21 | PTCARENOTE ---
16Fr salem sump placed in right nare. No s/s respiratory distress. Green output. Placed to LIS. RT at bedside to obtain ABG.
[2025-04-19] MEDS: NOVOLOG FLEXPEN SC ×2 (12:25→15:35)
[2025-04-19] MEDS: BUMEX 100 IV (12:26)
--- NOTE | 2025-04-19 12:35 | W.PN.HOSP.TC ---
Today's Communication/Plan
-
Continue with pressors. Wean as tolerated
Continue with meropenem/vancomycin
On IV Bumex. Monitor urinary output
TPN per surgery
Monitor mentation.
Monitor NG tube output
Prognosis remains guarded.
Assessment / Plan
Assessment / Plan
General: Well Developed, Well Nourished and Obese
HEENT: Normocephalic, Atraumatic
Respiratory: Mild rhonchi anteriorly, oxygen, nonlabored respiration
Cardiac: S1/S2 and regular rhythm
Breast: Deferred by me
GI: Tender and Other (Drains at surgical site with serosanguineous drainage), ostomy with no stool or gas noted
Genito-urinary: Rogers catheter with urine noted
Musculoskeletal: No Clubbing and No Cyanosis
Skin: Warm, diffuse anasarca noted with lower extremity and upper extremity edema
Neuro: Lethargic
Psych: Calm
Impression:
Patient is a 74y F with PMH significant for A-Fib, CHF and anal cancer with recent recurrence who presented to on 03/28 for scheduled surgery for resection of recurrent malignancy. Patient underwent ureteroscopy with bilateral ureteral stents,
robotic APR, BIANKA / BSO, repair of vaginal defect and perineal reconstruction / flap on 03/28/25. She received 2 units PRBC and 1g TXA during the surgeries. Patient was successfully extubated post-op. She was on pressors post-op which were able to
be weaned, but have since been restarted at low dose to maintain adequate perfusion.
Medicine service was consulted for management of patient's multiple medical issues.
Patient Status post debridement on 04/03/2025 of flap to muscle. Pressure offloading per plastics surgery recs. Worsening thrombocytopenia. Heparin held, HIT antibody negative Tolerating clear liquid Blood pressure dropped and back to pressors
Repeat debridement was done by plastic surgery at bedside. Patient was back on pressors persistently. Received blood transfusion. Restarted on antibiotics broad-spectrum with meropenem vancomycin. With diffuse anasarca and was started on IV
diuretics. TPN was continued. Diet was now de-escalated to n.p.o. and NG tube was placed.
Assessment/plan:
Anal Cancer s/p Robotic APR, BIANKA/BSO, Repair of Vaginal Defect, Perineal Reconstruction / Flap
Concern for superficial necrosis of the flap
- Pain control. OOB/activity
- IV Ancef transition to Zosyn and completed
- Flap ischemia status post debridement on 04/03/2025 of flap to muscle. Pressure offloading per plastics surgery recs
- Patient continued on TPN. Remains with poor appetite.
- Diet de-escalated to NPO. Status post NG tube placement on 04/19/2025.
- Plastic surgery did additional bedside debridement on 04/17/2025. Correspondence noted. Monitor PRETTY drain output. Offloading if tolerating. Wound care as per surgery.
- Patient was additionally started on meropenem and vancomycin. Follow-up on the blood culture. Remains negative so far. Urine culture with no growth
- CT abdomen pelvis done on 04/14/2024 and noted,
- Infectious disease consultation for further antibiotic management. Unclear if patient will require antifungal coverage.
Acute Blood Loss Anemia
Shock likely secondary to hemorrhagic and hypovolemia versus? Cardiogenic in the setting of severe pulmonary hypertension & R ventricular dysfunction versus sepsis (aspiration pneumonia, perineum wound)
- Received 6 units PRBCs total thus far (and 1 g TXA) and 2units of FFP and 10mg of Vitamin K. Hemoglobin at 8.4
- Currently on phenylephrine and levophed for BP support - wean as able. Midodrine 10mg TID. Status post albumin IV infusion.
- IV ppi. IVF has been stopped.
- Wean pressors as Bp allows but remains difficult.
- Hgb at 8.4. Status post aggressive IV fluid resuscitation. Requiring pressors.
- Cardiac etiology. .cortisol and TSH is normal. Adequate blood transfusion. Currently third spacing severe anasarca
- Follow-up on the blood culture results. Antibiotics started. Await further ID input
OSMANY on CKD III with anasarca
- Monitor urinary output. Possibly due to cardiorenal syndrome with significant volume overload.
- BUN/Cr bumped further. Status post Bumex yesterday. Not much urinary output. Plan to start patient on Bumex infusion. Dose increased. Patient with 525 cc urine output so far this morning
- Nephrology following.
Acute on chronic HFpEF
Severe pulmonary hypertension and right ventricular dysfunction with severe tricuspid regurgitation
- Diuresis has been difficult due to hypotension and pressor requirement
- Currently receiving diuretics per nephrology. May require right heart catheterization.
- Cardiology following
Mild metabolic encephalopathy likely secondary to severe hypotension versus ICU delirium
- Monitor mentation closely. Receiving pain meds due to significant surgery.
Suspected severe peripheral arterial disease
Thrombocytopenia
-Place dropped as low as 38
-HIT at antibodies negative
-Platelet count improved.
-Heparin resumed
Moderate right pleural effusion
-Pleural effusion noted on the CAT scan
-If with Shortness of breath or worsening hypoxemia may need thoracentesis
-Monitor for now. Plan for diuresis
Vasovagal episode on 04/04/2025
- Likely multifactorial in the setting of shock, atrial fibrillation, hypovolemia, fluid shift
- Blood pressure stabilized to some extent. Remains on pressors.
Persistent Atrial Fibrillation
- now in RVR. IV amiodarone has been transition to po 200mg daily. Hep gtt started. Plan to hold off starting Eliquis for now.
- Lopressor IV at low dose with holding parameters for BP.
- Cardiology following
Anasarca likely secondary to iatrogenic fluid administration PRBC, FFP, IV fluids
- RUE venous doppler negative
- Patient has gained significant weight since admission
- Further diuresis on hold as patient with bump in creatinine and severe hypotension
Transaminitis likely secondary to shock
Elevated bilirubin
- AST also normal. Bump in bilirubin noted. GGT normal
Hypothermia
- Mild hypothermia post-op. Likely combination of anesthesia, blood loss, etc.
- resolved
Acute hypoxic respiratory insufficiency
- Wean O2 as tolerated.
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
-Back on IV insulin per critical care glycemic protocol
- A1C was 5.7 on 03/26/25.
Hypothyroidism
- TFTs normal in February of this year.
- Repeat TFTs given hypothermia- TSH wnl.
- Off IV synthroid. Cont w/home dose 150mcg
Hypocalcemia
Hypomagnesemia
Hypophosphatemia
Hypokalemia
-Replete and monitor
Mild hypernatremia
- Monitor for now. Improved
CODE STATUS: Full code
DVT prophylaxis: Heparin resumed
Anticipated Discharge: > 48 hours
Subjective/Interval History
-
Date of Service: April 19, 2025
Remains somnolent
Remains on pressors.
States of abdominal pain intermittently
Objective Data
-
Labs:
Laboratory Results
04/19/25 04/19/25 04/19/25
03:54 04:27 12:26
WBC 16.0 H
Hgb 8.4 L
Hct 26.6 L
Plt Count 66 L
APTT Cancelled 80.1 H
HCO3 Pending
Sodium 132 L
Potassium 4.3
Chloride 103
Carbon Dioxide 21 L
BUN 119 H*
Creatinine 2.3 H
Glucose 137 H
Calcium 8.4
Vital Signs:
Vital Signs
Temp Pulse Resp BP Pulse Ox
97.5 F 116 21 127/68 96
04/19/25 11:12 04/19/25 12:00 04/19/25 12:00 04/19/25 12:00 04/19/25 12:00
I&O
09/07/3104/19/25 04/20/25
06:59 06:59 06:59
Intake Total 2560.2 / 2663.0 2735.7 / 2827.2 561.6 / 561.6
Output Total 1125 / 1125 1595 / 1595 645 / 645
Balance 1435.2 / 1538.0 1140.7 / 1232.2 -83.4 / -83.4
Data Reviewed
-
Total Time Spent with Patient (in minutes): 56
[2025-04-19 12:58] LABS: B.E. -4.6 mmol/L; HCO3 20.3 mmol/L (21-28); O2 Saturation % 94.5 % (94-98); PCO2 36 mmHg (32-35); PO2 63 mmHg (83-108)
--- NOTE | 2025-04-19 13:19 | W.PN.CD ---
Today's Communication / Plan
-
Agree bumex gtt
remains on pressors
Echo unchanged from priors
Impression / Plan
-
Impression
74y F with PMH significant for A-Fib, CHF and anal cancer with recent recurrence who presented to on 03/28 for scheduled surgery for resection of recurrent malignancy. Patient underwent ureteroscopy with bilateral ureteral stents, robotic APR,
BIANKA / BSO, repair of vaginal defect and perineal reconstruction / flap on 03/28/25. Patient was successfully extubated post-op. She was on pressors post-op which were able to be weaned, but have since been restarted to maintain adequate perfusion.
Plan
#Hemorrhagic/hypovolemic shock should be resolved now still requiring pressor support?
- s/p robotic abdominoperineal resection, repair of vaginal defect, robotic total laparoscopic hysterectomy, bilateral salpingo-oophorectomy, vertical rectus abdominis myocutaneous flap reconstruction of the perineum, cystoscopy and bilateral
ureteral stent insertion (03/28/25)
- post-op course complicated by hypotension requiring blood products, fluids, vasopressors
- s/p 5 U PRBC (4 on 03/28/2025 and 1 on 03/31/2025)
-Requiring BP support on phenylephrine now levophed wean as tolerated
- Maintain MAP > 65.
- random cortisol normal
- Updated ECho shows normal LV function
- Hemoglobin�8.4 today
# AFib back IN AF
Telemetry reviewed
Heart rates in 80s, patient converted to sinus 04/15/2025
Continue amiodarone 200 mg
Continue heparin GTT
Resume Eliquis when appropriate
#Acute on Chronic HFpEF:
-Echo 04/08/2025�EF 60 to 65%,
-also with moderate mitral stenosis, mod/severe TR, severe pulm HTN
- Receiving lasix today
- Patient appears volume overloaded, with bilateral upper and lower extremity edema. Renal function�creatinine climbing up to 2.3. Patient on phenylephrine, and levo.
- Patient is off of IV fluids, hopefully she can be off of TPN as well (to reduce fluid load)-decision left to colorectal/surgery.
- bumex gtt may need metolazone for augmentation
- Cr stable 2.3
- On NC 3L, wean as able.
Rest of her chronic conditions management per primary team.
Physical Exam
Vital Signs/Labs
Vital Signs
Temp Pulse Resp BP Pulse Ox
97.5 F 116 21 127/68 96
04/19/25 11:12 04/19/25 12:00 04/19/25 12:00 04/19/25 12:00 04/19/25 12:00
04/18/25 04/19/25 04/20/25
06:59 06:59 06:59
Actual Weight 225 lb 4.999 oz 226 lb 3.108 oz
04/19/25 03:54
04/19/25 03:54
PT 21.5 Sec (11.4-14.6) H 04/04/25 14:51
INR 1.85 04/04/25 14:51
APTT 80.1 Sec (23.4-35.0) H 04/19/25 04:27
Magnesium 2.2 mg/dl (1.6-2.3) 04/19/25 03:54
Triglycerides 92 mg/dl (10-149) 04/14/25 05:18
04/14/25
05:18
Gil-Y-Bpknpipogec Pept > 81133
Physical Exam
Constitutional: No acute distress
EENT: Anicteric
Cardiovascular: Rhythm/rate is irregular and Pedal edema present
Respiratory: Respiratory effort normal and Crackles Present
GI: Soft
Neuro/Psych: Alert and Oriented
Data Reviewed
-
Date of Service: April 19, 2025
Medical Decision Making: Reviewed Test Results
EKG: Tracing Personally Visualized and interpreted (af)
Echo: Tracing Personally Visualized and interpreted
Labs: Labs Reviewed by me
[2025-04-19 14:24] LABS: Glucose - Point of Care 141 mg/dl (70-99)
[2025-04-19] MEDS: DILAUDID 0.5 MG IV ×3 (14:58→21:50)
[2025-04-19 16:19] LABS: Glucose - Point of Care 149 mg/dl (70-99)
--- NOTE | 2025-04-19 16:33 | PTCARENOTE ---
report received, assessments per work list. patient with increased nonverbal pain cues. see mar. oriented to self only, calling for her mother. monitor afib. gtts per work list. lungs with scattered crackles. +4 weeping anasarca. ngt to LIS, thick
green drainage. no output from colostomy. wound care provided by prior rn.
[2025-04-19 18:10] LABS: Glucose - Point of Care 156 mg/dl (70-99)
--- NOTE | 2025-04-19 20:00 | PTCARENOTE ---
Resumed care of pt laying bed arousable to voice, moaning, and yelling out at times. Pt AAOx2, forgetful to time and date. Pt yelps out in pain with minimal touch, turn, reposition of any extremity. PRN Pain medication administered as ordered prior
to turning pt. PT confused and delirious at times. HR in the 120's-130's in Afib on the monitor, with occasional pacing. +4 anasarca with weeping t/o. POX 97% on 2 LO2 NC. Dec with scattered crackles. Right Nare NGT in place to low intermittent
suction draining thick green drainage. Round obese abd. Colostomy in place with no output. B/L PRETTY drains in place. Rogers in place. Weak peripheral pulses present. Knee high seq in place. heels elevated on pillows. Sacral dressing intact. Right SQ
port infusing Heparin gtt and Double concentrated Levophed. Left dual picc infusing Insulin gtt, TPN, and Bumex gtt as ordered. Emotional support provided. Will continue to monitor.
[2025-04-19 20:05] LABS: Glucose - Point of Care 159 mg/dl (70-99)
[2025-04-19] MEDS: Parenteral Nutrition, Central 1340 IV (21:31)
[2025-04-19] MEDS: HEPARIN 25000 UNITS/250 ML IV (21:35)
[2025-04-19 22:14] LABS: Glucose - Point of Care 164 mg/dl (70-99)
[2025-04-20] VITALS (29 sets, daily range): BP systolic 82–126; BP diastolic 50–74; BMI 41.7
--- NOTE | 2025-04-20 | PTCARENOTE ---
Pt continues to moan and call out at times. When asked if she is ok, she answers yes. Levophed being slowly tapered as BP allows. Pt repositioned per comfort. No other changes in assessment noted at this time. Will continue to monitor.
[2025-04-20 00:09] LABS: Glucose - Point of Care 157 mg/dl (70-99)
[2025-04-20] MEDS: MERREM 500 MG IV ×2 (02:39→13:56)
[2025-04-20] MEDS: STERILE WATER FOR INJECTION 10 ML IV ×2 (02:40→13:56)
[2025-04-20 02:42] LABS: Glucose - Point of Care 156 mg/dl (70-99)
[2025-04-20] MEDS: DILAUDID 0.5 MG IV (03:21)
[2025-04-20 04:16] LABS: Glucose - Point of Care 158 mg/dl (70-99)
--- NOTE | 2025-04-20 04:37 | PTCARENOTE ---
Pt continues to moan and yell out 'help'. Pt confused and talking to self. PRN pain medication administered as ordered. CHG bath provided. Wound care complete. Pt repositioned with fresh linens in place. NO other changes in assessment noted at this
time. Will monitor.
[2025-04-20 04:45] LABS: Hematocrit 26.8 % (37.0-47.0); Hemoglobin 8.4 g/dL (12.0-16.0); Mean Corp Hgb Conc. 31.3 g/dL (33.0-37.0); Mean Corpuscular Volume 93.7 fL (81.0-99.0); Platelet Count 66 10^3/uL (130-400); Red Cell Dist. Width 24.6 % (11.5-14.5)
[2025-04-20 04:53] LABS: APTT 74.2 Sec (23.4-35.0)
[2025-04-20 05:03] LABS: Calcium 8.8 mg/dl (8.4-10.2); Carbon Dioxide 22 mmol/L (22-30); Chloride 105 mmol/L (98-107); Estimated Creatinine Clearance 27 ml/min; Glucose 141 mg/dl (70-99); Potassium 4.0 mmol/L (3.5-5.1); Sodium 136 mmol/L (135-145); eGFR 25.57
[2025-04-20 05:11] LABS: Blood Urea Nitrogen 134 mg/dl (7-17)
[2025-04-20] MEDS: LEVOPHED 258 MG IV (05:18)
[2025-04-20] MEDS: SYNTHROID 150 MCG PO (06:15)
[2025-04-20 06:22] LABS: Glucose - Point of Care 158 mg/dl (70-99)
[2025-04-20] MEDS: NOVOLOG FLEXPEN SC ×3 (06:59→17:22)
[2025-04-20] MEDS: MEGACE PO ×2 (07:00→21:37)
[2025-04-20] MEDS: DILAUDID 1 MG IV ×5 (07:19→22:30)
--- NOTE | 2025-04-20 07:46 | PHA.VAN.FU ---
Vancomycin Assessment / Plan
- Assessment
Renal Function: SCR Decreasing
WBC's are: Stable
In the past 24 hrs, patient has been: Afebrile
Concomitant Antimicrobials: meropenem
on bumetanide drip
- Assessment - Therapeutic Drug Monitoring
Random Level: 13.4 - draw ~24H after previous level of 17.3
Calculated ke: 0.0105
Calculated half life (H): 66
last dose was 2g load on 04/18 (level today ~35.5H after load)
- Dosing Plan
Dosing by Level: Re-dose today (Vanc 1000mg)
- Monitoring Plan
Random Level: 04/21 0600
Monitoring Comments: anticipate will not require re-dosing tomorrow but will trend levels
- Follow Up
Pharmacy will continue to follow.
Vancomycin Follow UP
- -
Patient Age: 74
Patient Sex: Female
Vancomycin Day #: 3
Indication: Skin And Soft Tissue
Requesting Provider: Dr. Myers
Pertinent Antimicrobial Allergies:
sulfamethoxazole / trimethoprim (From Bactrim) - hypotension
Height / Weight:
Height 5 ft 1 in
Actual Weight 100.1 kg
Pertinent Past Medical History: BMI~43, anal SCC, CKD
- Vital Signs / Lab Results
Temp Pulse Resp BP Pulse Ox
97.8 F 131 16 111/74 95
04/20/25 07:10 04/20/25 07:00 04/20/25 07:00 04/20/25 07:00 04/20/25 07:00
Lab Results - Hematology
04/18/25 04/19/25 04/20/25
03:12 03:54 04:13
WBC 16.2 H 16.0 H 16.3 H
Lab Results - Chemistry
04/18/25 04/19/25 04/20/25
03:12 03:54 04:13
BUN 112 H* 119 H* 134 H*
Creatinine 2.3 H 2.3 H 2.0 H
Estimated Creat Clear
Microbiology Results
04/18/25 03:12 Blood Culture - Preliminary
Blood/Venous No Growth in 48 hours- Final report to follow
04/18/25 17:48 Blood Culture - Preliminary
Blood/Venous No Growth in 24 hours- Final report to follow
04/18/25 18:30 Urine Culture - Final
Urine No Significant Growth
Therapeutic Drug Monitoring
Random Vancomycin 13.4 ug/ml 04/20/25 04:13
--- NOTE | 2025-04-20 08:09 | W.PN.INTV ---
Today's Communication / Plan
Recommendations
Poor prognosis --> family meeting to be held today with daughter and patient's sister to discuss goals of care - patient is hospice appropriate
In interim period:
Continue TPN
Keep NGT to LIWS; check flat plate tomorrow
Levophed with goal MAP>65
Bumex drip
Trend UOP
Pain control
Add low dose ativan prn
Keep NPO
Continue ICU level of care
Assessment
-
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
status post robotic abdominoperineal resection, BIANKA/BSO, VRAM flap perineal reconstruction, 03/28. Patient admitted to ICU postoperatively given significant blood loss, hypotension requiring pressors.
Impression:
#Circulatory shock/hypotension - likely due to poor end-organ perfusion in setting of suspected severe PAD with possible sepsis
#Suspected sepsis - sources include urine, lung and skin; gallbladder ruled out
#Anemia + thrombocytopenia
#Severe stomach distension with no air seen in ostomy and distended gas-filled loops of bowel concerning for severe ileus vs SBO
#OSMANY on CKD (baseline creatinine approximately 1.4)
#Pulmonary hypertension with right ventricular dysfunction + dilatation and moderate�severe TR
#Acute HFpEF exacerbation
#Acute respiratory failure with hypoxia due to interstitial/alveolar edema in the setting of bilateral pleural effusions (R >L)
#Cholelithiasis without evidence of acute cholecystitis
#Generalized pain
#Morbid obesity
#Anal cancer s/p robotic APR with repair of vaginal defect, BIANKA�BSO and VRAM flap perineal reconstruction (03/28/2025)
#Advanced colorectal cancer s/p radiation with excisional debridement and adjacent tissue transfer (04/03/2025) - operative findings showed necrotic superficial tissue with viable deep muscle at the pelvic inlet
Plan:
- Since past weekend 03/12 - 03/13, she has become increasingly lethargic; she continues to be in pain after narcotics were adjusted to see if this would improve her mentation; she screams out in pain during nursing care
- She has suspected PAD as per Dr. Chen - her deep, inferior epigastric vessels were extremely calcified; on 04/15, Dr. Cintron performed an arterial line insertion procedure and her radial arteries on both extremities had almost no pulsatility
likely due to stiff arteries with severe calcification and PAD; this is likely systemic
- Ideally would obtain a CT angio abdominal aorta with runoff however in the setting of her OSMANY, would hold off for now and continue trending sCr
- If Cr improves then will check CTA abd aorta with runoff, requested by plastics, to assess gracilis flap blood supply, however pt is likely transitioning to hospice so would hold off on additional imaging
- Pt remains on levophed and we will continue titrating to keep MAP>65; replete calcium, and could consider albumin to keep serum level >3g/dL
- Continue diuresis with bumex gtt (started 04/18) in the setting of her pulmonary hypertension with RV dysfunction with evidence of volume overload seen clinically and on chest imaging (bases of lungs on CT A/P from 04/04/2025).
- She is net (+) 15L since admission and she is up 30 pounds since admission as well
- Nephrology following; she is heading towards HD, however family is likely heading towards hospice, hence would not offer HD at this point as it would prolong suffering. Monitor [K] and Tx for levels >5.5 - 6
- Although she recently completed about 7 days of Zosyn (04/05 - morning of 04/12) and remains afebrile (although had been getting tylenol at times), Abx resumed given her persistent leukocytosis with concern for a lingering infection - source could be
due to aspiration pneumonia, wound on perineum vs UTI --> started meropenem 04/18; ID started IV vanc on 04/18; follow up set of blood cultures and urin Cx (04/18)
- Stopped scheduled tylenol on 04/15 as I do not want to mask a fever and it did not seem to be helping her pain
- Continue pain control as tolerated and holding/adjusting dose/frequency if needed based on mental status
- Patient is in and out of A-fib; continue PO amio; replete K>4, Mg>2; cardiology on board, recs appreciated; heparin gtt
- Monitor PRETTY drain x3 output
- Aspiration precautions; maintain SpO2 >90-94%
- Maintain euglycemia with goal BG 140�180
- Pt is high aspiration risk; keep NPO given concern for SBO vs ileus on AM of 04/19 --NGT inserted, keep on LIWS (700cc output overnight from 04/19 - 04/20); continue with TPN, stopping this as soon as clinically necessary to help reduce volume being
infused; unfortunately the patient has very poor appetite and now has malnutrition despite her being obese
- Transfuse blood products if needed to keep Hb >7-8 g/dL + platelets >50k; continue heparin gtt with transition to NOAC when clinically appropriate; she initially was going to go back to OR next week, per plastic surgery, however given that she is
worsening and is likely being TRX to hospice this upcoming week, surgery is not an option at this juncture. In addition, at this time she would not survive an operation and the risks are too high with low benefit
- Plastic surgery performed bedside wound debridement on 04/18--> fibrinous cap on the backside of her wound was removed and packed wet-to-dry with dilute betadine. No purulent fluid was seen and there was a small superficial cavity, also there were
features of typical pressure related injury seen
DVT ppx: heparin gtt
Stress ulcer ppx: PPI
Guarded prognosis - goals of care discussed on 04/16 and again today on 04/17 (see separate update note from 04/17 for details). Pt is now DNR/DNI but to continue full medical care. This was discussed with the patient's daughter, Alysha, son Manuel, and
[id number], Camryn - all questions were answered.
Continue ICU level of care for this critically ill patient
Critical care statement: A total of 38 minutes of critical care time was provided for this patient today. This includes management of unstable vital signs, evaluation of the patient at bedside, reviewing the patient�s pertinent medical records
including radiographs, microbiology, laboratory evaluations, and��discussion with primary team, consultants, pharmacy, nutrition, physical therapy, case management, charge nurse, critical care nursing, and respiratory therapy.
Data:
CXR 04/02/25- Low lung volumes with patchy bibasilar opacities, likely atelectasis and/or small effusion. No significant effusions or pneumothorax appreciated.
03/28/25- Nasogastric tube is present with tip near the gastroesophageal junction and distal sidehole in the distal esophagus. Consideration for advancement of this tube. Interstitial edema. Linear atelectasis in the right midlung. Mild to moderate
elevation of the left hemidiaphragm, new since previous radiograph. Probable small bilateral pleural effusions.
CT CAP 02/21/25- Circumferential anal wall thickening consistent with known malignancy versus posttreatment change. Probably stable. No evidence of metastatic disease. However, extremely limited exam without IV contrast. Tiny pericardial effusion.
Stable. Progressed small right and new tiny left pleural effusions. Findings suggesting moderate bilateral lower lobe and mild upper lobe pneumonia. New. Mild mediastinal lymphadenopathy. Probably reactive. Stable. Gallstones. Stable. Mild diffuse
bladder wall thickening. This can be seen with cystitis or bladder outlet obstruction. Improved.
Findings suggesting bilateral lower third spacing. Progressed
Echo 03/25/2025: Normal biventricular function with mildly dilated RV, moderate mitral stenosis, severe TR, PA pressure 66
Subjective Dataa
Subjective Data
Date of Service:
Date of Service: April 20, 2025
Chief Complaint: Network Contractor Follow Up and Pulmonary Follow Up
Subjective:
Patient seen and evaluated today at bedside. NG tube placed yesterday due to suspected ileus versus SBO. She remains on Levophed now at 3 mcg/min, also on Bumex drip at 1 mg/h, and heparin gtt. She remains drowsy. Creatinine is slightly improved
although BUN is worsening. Heart rate 120, BP 123/59 and saturating 95% on 2L/min.
Review of Systems
General: Other (Unobtainable due to patient's acute clinical status/drowsiness)
Objective Data
Data Reviewed
Vital Signs / I&O / Oxygen:
Vital Signs
Temp Pulse Resp BP Pulse Ox
97.8 F 125 16 82/57 93
04/20/25 07:10 04/20/25 09:00 04/20/25 09:00 04/20/25 09:00 04/20/25 09:00
Intake and Output
04/19/25 04/20/25 04/21/25
06:59 06:59 06:59
Intake Total 2735.7 / 2827.2 2171.3 / 2255.5 370.7 / 370.7
Output Total 1595 / 1595 4685 / 4685 410 / 410
Balance 1140.7 / 1232.2 -2513.7 / -2429.5 -39.3 / -39.3
SaO2 93
Nasal Cannula flow liters per 2
minute
Physical Exam
General: Respiratory Distress (negative), Pain (generalized pain), Poor Appetite and Other (appears uncomfortable with frequent grimacing; screams in pain during nursing care)
HEENT: Normocephalic, Anicteric and Other (thick neck)
Cardiovascular: Irregular Rhythm (Irregularly irregular) and Peripheral Edema (+4 bilateral pitting edema/anasarca)
Respiratory: Wheeze (negative), Crackles (Bilateral), Rhonchi (negative), Accessory Resp Muscle Use (negative) and Stridor (negative)
GI: Soft, Distended (Abdominal obesity), Tender (diffuse tenderness), NG Tube, Other (abdominal incisions are noted, sacral tissue is yellow) and Other (LLQ ostomy with no gas or stool seen in bag; hypoactive bowel sounds)
Neurology: Tremors (negative) and Lethargic (Awakens to verbal stimuli but then quickly falls back asleep)
Skin: Warm, Good Color (Mild pallor), Jaundice (negative) and Other (yellow sloughing of bottom, edematous third spacing in all 4 extremities)
Labs/Micro/Reports
Lab Data
04/20/25 04:13
04/20/25 04:13
Laboratory Results
04/19/25 04/20/25
04:13
APTT 74.2 H
pH 7.36
pCO2 36 H
pO2 63 L
HCO3 20.3 L
O2 Delivery Level
Microbiology
04/18/25 03:12 Blood/Venous Blood Culture - Preliminary
No Growth in 48 hours- Final report to follow
04/18/25 17:48 Blood/Venous Blood Culture - Preliminary
No Growth in 24 hours- Final report to follow
04/18/25 18:30 Urine Urine Culture - Final
No Significant Growth
[2025-04-20 08:12] LABS: Glucose - Point of Care 160 mg/dl (70-99)
[2025-04-20] MEDS: PROTONIX IV 40 MG IV (08:13)
[2025-04-20] MEDS: DESENEX/MITRAZOL/ZEASORB 1 APPLIC TOPICAL ×2 (08:13→20:33)
[2025-04-20] MEDS: SANTYL OINTMENT TOPICAL (08:14)
[2025-04-20] MEDS: PACERONE 200 MG PO (08:14)
[2025-04-20] MEDS: NSS (PRESERVATIVE FREE) 10 ML IV (08:14)
--- NOTE | 2025-04-20 08:41 | PTCARENOTE ---
patient received moaning loudly, yelling out 'help me'. patient oriented to person and lace, screaming out loud at any touch. medicated with dilaudid per prn order. patient quieter at rest, still moaning. with assessment and care patient yelling
with increased verbal and non verbal pain cues in spite of being premedicated with dilaudid. monitor afib, levophed, insulin, bumex and heparin per work list. glycemic per protocal. lungs with diminished breath sounds and scattered crackles. no
output from ostomy. ngt draining large amount very thick green liquid. foely draining yellow urine. right carleen with large amount serous drainage. safe environment maintained
--- NOTE | 2025-04-20 09:01 | W.PN.ID1 ---
Date of Service
Date of Service: April 20, 2025
Today's Communication
- continue meropenem, vancomycin; would not recommend antifungals at this time
- Patient remains persistently critically ill with some interval improvement
Assessment / Plan
Persistent Shock - suspect cardiogenic
Superficial necrosis of abdominal flap
Possible UTI
- blood cultures x2 in progress
- Urine culture finalized negative; she she did have significant pyuria on 04/17 which improved after initiation of antibiotics
- continue meropenem, vancomycin
- Patient remains persistently critically ill with some interval improvement
Chief Complaint
-: Other (cardiogenic shock, wound dehiscence)
Subjective / Review of Systems
afebrile
bp stable
moaning today
Vital Signs / Physical Exam
Vital Signs
Vital Signs
Temp Pulse Resp BP Pulse Ox
97.8 F 122 16 98/71 93
04/20/25 07:10 04/20/25 08:36 04/20/25 08:36 04/20/25 08:36 04/20/25 08:36
Physical Exam
Constitutional: No Acute Distress
Cardiovascular: Regular Rate and S1/S2; Negative Murmur or Rub
Pulmonary: Clear and Symmetric; Negative Wheezes or Rales
Gastrointestinal: Soft, Non Tender, Non Distended and Normal Bowel Sounds
Skin: Warm and Dry; Negative Rash or Jaundice
Wound: Other (deferred turning)
Objective Data
Lab Data
Lab Results
04/20/25 04:13
04/20/25 04:13
PT 21.5 Sec (11.4-14.6) H 04/04/25 14:51
INR 1.85 04/04/25 14:51
APTT 74.2 Sec (23.4-35.0) H 04/20/25 04:13
Estimated Creat Clear 27 ml/min 04/20/25 04:13
Lactic Acid 1.0 mmol/L (0.7-2.0) 04/17/25 03:12
Total Bilirubin 4.2 mg/dl (0.2-1.3) H 04/17/25 03:12
GGT 15 U/L (12-43) 04/17/25 03:12
AST 28 U/L (14-36) 04/17/25 03:12
ALT 14 U/L (0-35) 04/17/25 03:12
Alkaline Phosphatase 74 U/L (38-126) 04/17/25 03:12
Most recent labs reviewed.
Micro Results:
04/18/25 03:12 Blood Culture - Preliminary
Blood/Venous No Growth in 48 hours- Final report to follow
04/18/25 17:48 Blood Culture - Preliminary
Blood/Venous No Growth in 24 hours- Final report to follow
04/18/25 18:30 Urine Culture - Final
Urine No Significant Growth
--- NOTE | 2025-04-20 09:17 | W.PN.NEPH.PH ---
Today's Communication / Plan
-
reduce bumex
Assessment/Plan
-
IMP:
Anal Cancer s/p Robotic APR, BIANKA/BSO, Repair of Vaginal Defect, Perineal Reconstruction / Flap 03/28
Concern for superficial necrosis of the flap s/p debridement 03/31
Acute Blood Loss Anemia
Shock likely secondary to hemorrhagic and hypovolemia
OSMANY on CKD III -cr 1.3-1.8
Elevated bilirubin
Thrombocytopenia
Moderate right pleural effusion
Vasovagal episode on 04/04/2025
Persistent Atrial Fibrillation
Acute on chronic HFpEF
Severe pulmonary hypertension
Transaminitis likely secondary to shock
Hypothermia
DM-II
Hypothyroidism
Hypocalcemia -corrected normal
Plan:
reduce bumex gtt to 1mg/hr
Follow BMP
Maintain MAP greater than 65, wean pressors as allowed
She is volume overloaded but hypotensive and also orthopneic with severe TR but normal EF
NGT 700ml/d out, +insensible losses, she is
Prognosis is guarded
TPN per surgery, she is cleared for diet, but not eating
No emergent dialysis needs
Critical care time 31 minutes
-
-
Date of Service: April 20, 2025
CC / HPI / ROS
-
Chief Complaint:
OSMANY
History of Present Illness:
OSMANY/Cr down to 2.0
Na better
BUN up to 134
on TPN
BP low stable on pressors
critically ill in ICU
nonoliguric with bumex gtt
Review of Systems:
no CP/SOB
generalized pain
Labs
-
Labs:
WBC 16.3 10^3/uL (4.8-10.8) H 04/20/25 04:13
RBC 2.86 10^6/uL (4.20-5.40) L 04/20/25 04:13
Hgb 8.4 g/dL (12.0-16.0) L 04/20/25 04:13
Hct 26.8 % (37.0-47.0) L 04/20/25 04:13
Plt Count 66 10^3/uL (130-400) L 04/20/25 04:13
Sodium 136 mmol/L (135-145) 04/20/25 04:13
Potassium 4.0 mmol/L (3.5-5.1) 04/20/25 04:13
Chloride 105 mmol/L (98-107) 04/20/25 04:13
Carbon Dioxide 22 mmol/L (22-30) 04/20/25 04:13
BUN 134 mg/dl (7-17) H* 04/20/25 04:13
Creatinine 2.0 mg/dL (0.6-1.0) H 04/20/25 04:13
eGFR 25.57 04/20/25 04:13
Glucose 141 mg/dl (70-99) H 04/20/25 04:13
Calcium 8.8 mg/dl (8.4-10.2) 04/20/25 04:13
Phosphorus 4.5 mg/dl (2.5-4.5) 04/16/25 03:15
Vad-O-Igfiglvojzu Pept > 66266 pg/ml 04/14/25 05:18
Albumin 2.6 g/dl (3.5-5.0) L 04/17/25 03:12
Physical Exam
-
Vital Signs:
Vital Signs
Temp Pulse Resp BP Pulse Ox
97.8 F 122 16 98/71 93
04/20/25 07:10 04/20/25 08:36 04/20/25 08:36 04/20/25 08:36 04/20/25 08:36
Cardiovascular:: Regular rate and rhythm (tachycardic)
Respiratory:: Bilateral: Coarse
Lung Excursion:: Normal
Abdomen:: Nontender and Soft
Bowel Sounds:: Decreased
Extremity Edema:: +3: Bilateral:
[2025-04-20] MEDS: VANCOCIN 200 IV (09:30)
[2025-04-20 10:01] LABS: Glucose - Point of Care 180 mg/dl (70-99)
--- NOTE | 2025-04-20 10:41 | W.PN.CD ---
Addendum entered and electronically signed by Andrade Hsu MD 04/20/25 12:26:
I saw and evaluated the patient, and I provided the substantive portion of the medical decision making.
I reviewed and agree with the note by Dr Nelson and it accurately reflects our care.
I personally performed the medical decision making of the this encounter and my assessment and plan is below:
Cont pressure support
Cont amio and heparin
Cont bumex gtt
Overall, prognosis is guarded; goals of care talks appropriate
Original Note:
Today's Communication / Plan
-
Continue pressure support, wean as tolerated
Continue amiodarone
Continue heparin GTT
Reduced Bumex gtt. to 1 mg/hr.
Monitor weights, I/os, electrolytes.
Impression / Plan
-
Impression
74y F with PMH significant for A-Fib, CHF and anal cancer with recent recurrence who presented to on 03/28 for scheduled surgery for resection of recurrent malignancy. Patient underwent ureteroscopy with bilateral ureteral stents, robotic APR,
BIANKA / BSO, repair of vaginal defect and perineal reconstruction / flap on 03/28/25. Patient was successfully extubated post-op. She was on pressors post-op which were able to be weaned, but have since been restarted to maintain adequate perfusion.
Plan
#Hemorrhagic/hypovolemic shock should be resolved now still requiring pressor support
- s/p robotic abdominoperineal resection, repair of vaginal defect, robotic total laparoscopic hysterectomy, bilateral salpingo-oophorectomy, vertical rectus abdominis myocutaneous flap reconstruction of the perineum, cystoscopy and bilateral
ureteral stent insertion (03/28/25)
post-op course complicated by hypotension requiring blood products, fluids, vasopressors
s/p 5 U PRBC (4 on 03/28/2025 and 1 on 03/31/2025)
-Requiring BP support on Levophed, wean as tolerated
- Maintain MAP > 65.
- random cortisol normal
- Updated ECho shows normal LV function
- Hemoglobin�8.4 today
# Persistent A-fib
Telemetry reviewed
Now with RVR, rates in 130s
Continue amiodarone 200 mg
Continue heparin GTT
Monitor CBC
Resume Eliquis when appropriate
#Acute on Chronic HFpEF:
-Echo 04/08/2025�EF 60 to 65%,
-also with moderate mitral stenosis, mod/severe TR, severe pulm HTn
- Patient appears volume overloaded, with bilateral upper and lower extremity edema.
- Bumex gtt. reduced to 1 mg/hour
- Patient is off of IV fluids, hopefully she can be off of TPN as well (to reduce fluid load)-decision left to colorectal/surgery.
- Cr stable 2.0
- Monitor weight, I/os, electrolytes.
- On NC 3L, wean as able.
#Acute on chronic anemia
Multifactorial�acute blood loss, ACD, aggressive IV fluids, chronic debility
S/p 6 units PRBC, 2 units FFP's
Hemoglobin at 8.4 today
Patient might be third spacing as well, s/p albumin IV infusion
Monitor CBC
Transfuse if Hb <8
Rest of her chronic conditions management per primary team.
Physical Exam
Vital Signs/Labs
Vital Signs
Temp Pulse Resp BP Pulse Ox
97.8 F 125 16 82/57 93
04/20/25 07:10 04/20/25 09:00 04/20/25 09:00 04/20/25 09:00 04/20/25 09:00
04/19/25 04/20/25 04/21/25
06:59 06:59 06:59
Actual Weight 226 lb 3.108 oz 220 lb 10.923 oz
04/20/25 04:13
04/20/25 04:13
PT 21.5 Sec (11.4-14.6) H 04/04/25 14:51
INR 1.85 04/04/25 14:51
APTT 74.2 Sec (23.4-35.0) H 04/20/25 04:13
Magnesium 2.2 mg/dl (1.6-2.3) 04/19/25 03:54
Triglycerides 92 mg/dl (10-149) 04/14/25 05:18
04/14/25
05:18
Mwf-P-Zyrljcikaqp Pept > 14856
Physical Exam
Constitutional: Other (Patient is in a lot of pain)
Cardiovascular: Rhythm/rate is irregular, Pedal edema present and S1S2 is normal
Respiratory: Lungs clear to auscul. (Anteriorly)
GI: Soft, Abdomen is tender and Other
Neuro/Psych: Alert, Oriented and AO x 3
Data Reviewed
-
Date of Service: April 20, 2025
--- NOTE | 2025-04-20 11:07 | W.PN.GS2 ---
Addendum entered and electronically signed by Tee Al MD 04/20/25 11:28:
Patient seen and examined in follow-up with surgical [employer]. Agree with documented progress note
NG tube replaced over the last 24 hours with significant output and there has been no significant colostomy output over the last 1 to 2 days.
Continued vasopressor requirement on Levophed
ABD: Midline incision healing. Generalized tenderness on palpation. Ostomy pink and flat but no air or stool in appliance
A/P: Continue current supportive care
TPN renewed
Primary service to regroup with the patient and family regarding level of care going forward; currently DNR
Original Note:
Today's Communication / Plan
-
NPO/NGT/TPN
Assessment / Plan
-
74 yo female s/p adjunctive chemo now presenting for operative management of anal cancer
POD #24 RAL APR (CRS), vaginal defect repair with BIANKA/BSO ([employer]) and VRAM flap (Plastics)
POD #18 Excisional Debridement to muscle [id number] of superficial necrotic tissue, adjacent tissue transfer [id number]
POD #3 bedside wound debridement with plastics
Tachycardic, Hypotensive and on levophed, Afebrile
Persistent leukocytosis
h/h stable on heparin
thrombocytopenia present
Renal function stable
Plan: continue current supportive care
continue NGT/NPO
TPN renewed
Analgesics prn
Medical management as per ICU/medicine teams
Subjective Data
-
Date of Service: April 20, 2025
Pt seen and examined at bedside with Dr. Al. Christiano, notes abdominal pain. Denies active nausea.
Objective Data
-
Intake and Output
04/19/25 04/20/25 04/21/25
06:59 06:59 06:59
Intake Total 2735.7 / 2827.2 2171.3 / 2255.5 370.7 / 370.7
Output Total 1595 / 1595 4685 / 4685 410 / 410
Balance 1140.7 / 1232.2 -2513.7 / -2429.5 -39.3 / -39.3
Intake:
Oral fluids 500 / 500
IV fluids (Total) 891.7 / 927.2 827.3 / 855.5 82.7 / 82.7
Heparin 264 / 275 264 / 275 33 / 33
Insulin 40.6 / 42.3 41.6 / 43.3 5.1 / 5.1
Norepinephrine 539.1 / 557.9 341.7 / 349.2 20.6 / 20.6
bumex 48 / 52 180 / 188 24 / 24
TPN/PPN 1344 / 1400 1344 / 1400 168 / 168
Amount instilled into GI Tube ( 120 / 120
Total)
[place] Sump 120 / 120
Output:
Liquid stool amount 150 / 150
Colostomy 150 / 150
Drain Output (Total) 550 / 550 585 / 585 60 / 60
Left Lower Abdomen Pierce- 10 / 10 15 / 15
Hoover
Right Lower Abdomen Pierce- 540 / 540 570 / 570 60 / 60
Hoover B
Gastrointestinal tube output ( 800 / 800
Total)
[place] Sump 800 / 800
Urine, Rogers 895 / 895 3300 / 3300 350 / 350
Vital Signs
Temp Pulse Resp BP Pulse Ox
97.8 F 125 16 82/57 93
04/20/25 07:10 04/20/25 09:00 04/20/25 09:00 04/20/25 09:00 04/20/25 09:00
Lab Results
04/20/25 04:13
04/20/25 04:13
Calcium 8.8 mg/dl (8.4-10.2) 04/20/25 04:13
Phosphorus 4.5 mg/dl (2.5-4.5) 04/16/25 03:15
Magnesium 2.2 mg/dl (1.6-2.3) 04/19/25 03:54
Total Bilirubin 4.2 mg/dl (0.2-1.3) H 04/17/25 03:12
Direct Bilirubin 2.7 mg/dl (0.0-0.4) H 04/17/25 03:12
AST 28 U/L (14-36) 04/17/25 03:12
ALT 14 U/L (0-35) 04/17/25 03:12
Alkaline Phosphatase 74 U/L (38-126) 04/17/25 03:12
Total Protein 5.6 g/dl (6.3-8.2) L 04/17/25 03:12
Albumin 2.6 g/dl (3.5-5.0) L 04/17/25 03:12
Physical Exam
-
NAD, somnolent in hospital bed
ABD: soft, distended, tenderness to palpation around the incision site.
Stoma pink and appliance in place -dry and decompressed at the moment
NGT with bilious outputs
JPs with straw-colored serous fluid
[2025-04-20] MEDS: NOVOLIN R INSULIN INFUSION 100 IV (11:18)
--- NOTE | 2025-04-20 12:10 | W.PN.HOSP.TC ---
Today's Communication/Plan
-
Wean pressors as tolerated
Continue with TPN/insulin
Continue with broad-spectrum antibiotics
Continue with Bumex. Monitor urinary output closely
Assessment / Plan
Assessment / Plan
General: Obese, eyes closed
HEENT: Normocephalic, Atraumatic
Respiratory: Mild rhonchi anteriorly, oxygen, nonlabored respiration
Cardiac: S1/S2 irregularly irregular
Breast: Deferred by me
GI: Tender and Other (Drains at surgical site with serosanguineous drainage), ostomy with no stool or gas noted, NG tube with biliary drain noted
Genito-urinary: Rogers catheter with urine noted
Musculoskeletal: No Clubbing and No Cyanosis
Skin: Warm, diffuse anasarca noted with lower extremity and upper extremity edema
Neuro: Lethargic
Psych: Calm
Impression:
Patient is a 74y F with PMH significant for A-Fib, CHF and anal cancer with recent recurrence who presented to on 03/28 for scheduled surgery for resection of recurrent malignancy. Patient underwent ureteroscopy with bilateral ureteral stents,
robotic APR, BIANKA / BSO, repair of vaginal defect and perineal reconstruction / flap on 03/28/25. She received 2 units PRBC and 1g TXA during the surgeries. Patient was successfully extubated post-op. She was on pressors post-op which were able to
be weaned, but have since been restarted at low dose to maintain adequate perfusion.
Medicine service was consulted for management of patient's multiple medical issues.
Patient Status post debridement on 04/03/2025 of flap to muscle. Pressure offloading per plastics surgery recs. Worsening thrombocytopenia. Heparin held, HIT antibody negative Tolerating clear liquid Blood pressure dropped and back to pressors
Repeat debridement was done by plastic surgery at bedside. Patient was back on pressors persistently. Received blood transfusion. Restarted on antibiotics broad-spectrum with meropenem vancomycin. With diffuse anasarca and was started on IV
diuretics. TPN was continued. Diet was now de-escalated to n.p.o. and NG tube was placed.
Assessment/plan:
Anal Cancer s/p Robotic APR, BIANKA/BSO, Repair of Vaginal Defect, Perineal Reconstruction / Flap
Concern for superficial necrosis of the flap
- Pain control. OOB/activity
- IV Ancef transition to Zosyn and completed
- Flap ischemia status post debridement on 04/03/2025 of flap to muscle. Pressure offloading per plastics surgery recs
- Patient continued on TPN.
- Diet de-escalated to NPO. Status post NG tube placement on 04/19/2025 remains with significant biliary output..
- Plastic surgery did additional bedside debridement on 04/17/2025. Correspondence noted. Monitor PRETTY drain output. Offloading if tolerating. Wound care as per surgery.
- Patient was additionally started on meropenem and vancomycin. Follow-up on the blood culture. Remains negative so far. Urine culture with no growth
- CT abdomen pelvis done on 04/14/2024 and noted,
- Infectious disease consultation for further antibiotic management. .
Acute Blood Loss Anemia
Shock likely secondary to hemorrhagic and hypovolemia versus? Cardiogenic in the setting of severe pulmonary hypertension & R ventricular dysfunction versus sepsis (aspiration pneumonia, perineum wound)
- Received 6 units PRBCs total thus far (and 1 g TXA) and 2units of FFP and 10mg of Vitamin K. Hemoglobin at 8.4
- Currently on phenylephrine and levophed for BP support - wean as able. Midodrine 10mg TID. Status post albumin IV infusion.
- IV ppi. IVF has been stopped.
- Wean pressors as Bp allows but remains difficult.
- Hgb at 8.4. Status post aggressive IV fluid resuscitation. Requiring pressors.
- Cardiac etiology. .cortisol and TSH is normal. Adequate blood transfusion. Currently third spacing severe anasarca
- Follow-up on the blood culture results. Antibiotics started. Await further ID input
OSMANY on CKD III with anasarca
- Monitor urinary output. Possibly due to cardiorenal syndrome with significant volume overload.
- Creatinine down trended with mild improvement. Patient with significant urinary output. Continue with Rogers catheter. Bumex drip continued and dose decreased.
- Nephrology following.
Acute on chronic HFpEF
Severe pulmonary hypertension and right ventricular dysfunction with severe tricuspid regurgitation
- Diuresis has been difficult due to hypotension and pressor requirement
- Currently receiving diuretics per nephrology. May require right heart catheterization. Lost weight.
- Cardiology following
Mild metabolic encephalopathy likely secondary to severe hypotension versus ICU delirium
- Monitor mentation closely. Receiving pain meds due to significant surgery.
Suspected severe peripheral arterial disease
Thrombocytopenia
-Place dropped as low as 38
-HIT at antibodies negative
- Monitor platelet counts closely.
-Heparin resumed
Moderate right pleural effusion
-Pleural effusion noted on the CAT scan
-If with Shortness of breath or worsening hypoxemia may need thoracentesis
-Monitor for now. Plan for diuresis
Vasovagal episode on 04/04/2025
- Likely multifactorial in the setting of shock, atrial fibrillation, hypovolemia, fluid shift
- Blood pressure stabilized to some extent. Remains on pressors.
Persistent Atrial Fibrillation
- now in RVR. IV amiodarone has been transition to po 200mg daily. Hep gtt started. Plan to hold off starting Eliquis for now.
- Lopressor IV at low dose with holding parameters for BP.
- Cardiology following
Anasarca likely secondary to iatrogenic fluid administration PRBC, FFP, IV fluids
- RUE venous doppler negative
- Patient has gained significant weight since admission
- Further diuresis on hold as patient with bump in creatinine and severe hypotension
Transaminitis likely secondary to shock
Elevated bilirubin
- AST also normal. Bump in bilirubin noted. GGT normal. Repeat LFTs in the morning
Hypothermia
- Mild hypothermia post-op. Likely combination of anesthesia, blood loss, etc.
- resolved
Acute hypoxic respiratory insufficiency
- Wean O2 as tolerated.
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
-Back on IV insulin per critical care glycemic protocol
- A1C was 5.7 on 03/26/25.
Hypothyroidism
- TFTs normal in February of this year.
- Repeat TFTs given hypothermia- TSH wnl.
- Off IV synthroid. Cont w/home dose 150mcg
Hypocalcemia
Hypomagnesemia
Hypophosphatemia
Hypokalemia
-Replete and monitor
Mild hypernatremia
- Monitor for now. Improved
CODE STATUS: Full code
DVT prophylaxis: Heparin resumed
Anticipated Discharge: > 48 hours
Subjective/Interval History
-
Date of Service: April 20, 2025
Remains lethargic with abdominal pain
Now n.p.o. with NG tube with biliary drainage noted
Remains on pressors
Objective Data
-
Labs:
Laboratory Results
04/20/25
04:13
WBC 16.3 H
Hgb 8.4 L
Hct 26.8 L
Plt Count 66 L
APTT 74.2 H
Sodium 136
Potassium 4.0
Chloride 105
Carbon Dioxide 22
BUN 134 H*
Creatinine 2.0 H
Glucose 141 H
Calcium 8.8
Vital Signs:
Vital Signs
Temp Pulse Resp BP Pulse Ox
97.6 F 125 16 82/57 93
04/20/25 11:31 04/20/25 09:00 04/20/25 09:00 04/20/25 09:00 04/20/25 09:00
I&O
04/19/25 04/20/25 04/21/25
06:59 06:59 06:59
Intake Total 2735.7 / 2827.2 2171.3 / 2255.5 370.7 / 370.7
Output Total 1595 / 1595 4685 / 4685 410 / 410
Balance 1140.7 / 1232.2 -2513.7 / -2429.5 -39.3 / -39.3
Data Reviewed
-
Total Time Spent with Patient (in minutes): 55
[2025-04-20 12:21] LABS: Glucose - Point of Care 179 mg/dl (70-99)
--- NOTE | 2025-04-20 12:55 | PTCARENOTE ---
reassessed. insulin per glycemic. slow wean of levophed. continues to exhibit verbal and nonverbal pain cues. prn dilaudid administered per orders.
[2025-04-20 14:16] LABS: Glucose - Point of Care 129 mg/dl (70-99)
[2025-04-20] MEDS: BUMEX 100 IV ×2 (14:20)
--- NOTE | 2025-04-20 15:30 | W.PN.UPDATE ---
Update Note
Progress Note Update
Discussed clinical status with daughter, Alysha, and sister, Mickie, and I summarized her clinical course up until today. Pt continue to be in pain, now with NGT with bowel dysfunction, and mental confusion. The family agrees that they do not want
Indu to suffer any more. We discussed transitioning to hospice/comfort care, and they are in agreement, they just have other family members they need to call to come in to the hospital. Will continue with current meds for now until family ready
to transition to hospice. In meantime, I will order prn ativan and also order hospice consult. All of the family's questions were answered and emotional support was provided.
--- NOTE | 2025-04-20 15:41 | CM ---
Consult for hospice eval and treat. Referral placed.
--- NOTE | 2025-04-20 15:58 | PTCARENOTE ---
reassessed, phone representative at bedside to discuss goals of care. orders received. complete care given.
[2025-04-20] MEDS: VALIUM INJECTION 2.5 MG IV ×2 (16:14→20:31)
[2025-04-20 16:18] LABS: Glucose - Point of Care 170 mg/dl (70-99)
--- NOTE | 2025-04-20 16:51 | HOSPNOTE ---
Late Hospice referral received. Reviewed records. Reviewed that patient will be initiated on comfort measures after family notifies other family members to come see patient. I support initiating comfort measures. Hospice can evaluate for inpatient
hospice tomorrow morning. I attempted to reach daughter Alysha to review and had to leave a message. Hospice will follow and assess for inpatient hospice eligibility tomorrow morning and will try to reach family again at that time to discuss as well.
[2025-04-20 18:12] LABS: Glucose - Point of Care 165 mg/dl (70-99)
--- NOTE | 2025-04-20 18:29 | PTCARENOTE ---
patient continues to exhibit increased nonverbal pain cues. calling out. oreint to self only. medicated per MAR documentation. repositioned
[2025-04-20] MEDS: Parenteral Nutrition, Central 1340 IV (20:31)
[2025-04-20] MEDS: HEPARIN 25000 UNITS/250 ML IV (20:32)
--- NOTE | 2025-04-20 20:48 | PTCARENOTE ---
Assumed care of pt. approx 1899.
Hemodynamically stable, 2L N/C, however pain control/delirium seems to be an issue as reported from day team, as well as now.
+4 anasarca noted, Bumex gtt infusing, OP via Rogers.
On Norepi, sinus tach w. ectopy, normothermic.
See assessment flow sheet for more details.
[2025-04-20 20:49] LABS: Glucose - Point of Care 181 mg/dl (70-99)
[2025-04-20 21:21] LABS: Glucose - Point of Care 162 mg/dl (70-99)
[2025-04-20] MEDS: MEGACE 20 MG TUBE (21:37)
[2025-04-20 23:18] LABS: Glucose - Point of Care 148 mg/dl (70-99)
[2025-04-21] VITALS (30 sets, daily range): BP systolic 76–104; BP diastolic 35–79; BMI 40.9
--- NOTE | 2025-04-21 00:03 | PTCARENOTE ---
No change in pt. assessment.
[2025-04-21] MEDS: STERILE WATER FOR INJECTION 10 ML IV (01:15)
[2025-04-21] MEDS: MERREM 500 MG IV (01:15)
[2025-04-21] MEDS: VALIUM INJECTION 2.5 MG IV ×2 (01:16→07:35)
[2025-04-21 01:24] LABS: Glucose - Point of Care 165 mg/dl (70-99)
[2025-04-21] MEDS: DILAUDID 1 MG IV ×4 (02:32→12:33)
[2025-04-21 03:10] LABS: Glucose - Point of Care 178 mg/dl (70-99)
--- NOTE | 2025-04-21 03:17 | PTCARENOTE ---
No change in assessment.
[2025-04-21 03:19] LABS: Venous Blood Gas B.E. -2.1 mmol/L (-4 to +4); Venous Blood Gas O2 Sat % 93.8 %
[2025-04-21 03:28] LABS: Hematocrit 26.5 % (37.0-47.0); Hemoglobin 8.4 g/dL (12.0-16.0); Mean Corp Hgb Conc. 31.7 g/dL (33.0-37.0); Mean Corpuscular Volume 94.6 fL (81.0-99.0); Platelet Count 61 10^3/uL (130-400); Red Cell Dist. Width 25.2 % (11.5-14.5)
[2025-04-21 03:43] LABS: APTT 176.1 Sec (23.4-35.0)
[2025-04-21 04:15] LABS: ALT (SGPT) 13 U/L (0-35); AST (SGOT) 33 U/L (14-36); Albumin 2.0 g/dl (3.5-5.0); Alkaline Phosphatase 60 U/L (38-126); Calcium 8.8 mg/dl (8.4-10.2); Carbon Dioxide 23 mmol/L (22-30); Chloride 108 mmol/L (98-107); Estimated Creatinine Clearance 29 ml/min; Glucose 169 mg/dl (70-99); Magnesium 2.3 mg/dl (1.6-2.3); Potassium 3.8 mmol/L (3.5-5.1); Sodium 138 mmol/L (135-145); Total Protein 5.3 g/dl (6.3-8.2); Triglycerides 71 mg/dl (10-149); eGFR 29.02
[2025-04-21 04:34] LABS: Blood Urea Nitrogen 144 mg/dl (7-17)
[2025-04-21 05:29] LABS: Glucose - Point of Care 186 mg/dl (70-99)
[2025-04-21] MEDS: SYNTHROID 150 MCG TUBE (05:36)
[2025-04-21 06:11] LABS: Glucose - Point of Care 166 mg/dl (70-99)
[2025-04-21] MEDS: NOVOLOG FLEXPEN SC ×2 (07:32→10:51)
[2025-04-21] MEDS: PROTONIX IV 40 MG IV (07:33)
[2025-04-21] MEDS: DESENEX/MITRAZOL/ZEASORB 1 APPLIC TOPICAL (07:33)
[2025-04-21] MEDS: TYLENOL 650 MG TUBE (07:34)
[2025-04-21] MEDS: NSS (PRESERVATIVE FREE) 10 ML IV (07:34)
[2025-04-21] MEDS: ROXICODONE 10 MG TUBE (07:35)
[2025-04-21] MEDS: SANTYL OINTMENT 1 APPLIC TOPICAL (07:36)
[2025-04-21] MEDS: MEGACE 20 MG TUBE (07:36)
[2025-04-21] MEDS: PACERONE 200 MG TUBE (07:36)
[2025-04-21 08:08] LABS: Glucose - Point of Care 154 mg/dl (70-99)
--- NOTE | 2025-04-21 08:14 | PN.DE.MGMTRT ---
Insulin Management
- -
04/21/2025: Diabetes Management Follow up
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 PMH anal sq. cell CA, pacemaker, diabetes, hypothyroid, obesity, a fib, HTN, ASCVD/CVA, HCL. Prior to admission was taking Tresiba 8 units @ HS with
glyburide 2.5 mg daily. States she has had diabetes 20 years, has glucose monitor. States she only took the glipizide if her glucose was > 135. A1C 5.7%, Cr 1.4, eGFR 39.23-->2.1, eGFR 21.62 today.
Patient is lethargic and drowsy, unable to participate in discussion about diabetes care plan.
Noted for continued hypotension requiring vasopressors, deconditioning with acute kidney injury and decompensated heart failure.
Still receiving TPN, was made NPO on 04/19 due to mental status changes and was barely eating any of her meals.
Remains on Glycemic protocol due to persistent Hyperglycemia.
Current glucose range is 155 to 186 receiving 1.7 to 3 units of insulin/hr
Will continue glycemic protocol insulin infusion. Discussed with Nurse. Will cont to follow.
Diabetes History
- -
Type of Diabetes: 2 requiring insulin
Pre-Admission Diabetes Regimen
04/21/25
03:09
Creatinine 1.8 H
Lab Results
Hemoglobin A1c 5.7 % (4.0-5.6) H 03/26/25 10:51
Insulin Pump Settings
IP Diabetes Regimen
04/20/25 04/20/25 04/20/25
09:49 12:10 14:05
Glucose
POC Glucose 180 H 179 H 129 H
04/20/25 04/20/25 04/20/25
16:06 17:59 20:38
Glucose
POC Glucose 170 H 165 H 181 H
04/20/25 04/20/25 04/21/25
21:09 23:07 01:13
Glucose
POC Glucose 162 H 148 H 165 H
04/21/25 04/21/25 04/21/25
02:59 03:09 05:17
Glucose 169 H
POC Glucose 178 H 186 H
04/21/25 04/21/25
06:00 07:56
Glucose
POC Glucose 166 H 154 H
Patient Education
--- NOTE | 2025-04-21 08:21 | PHA.VAN.FU ---
Vancomycin Assessment / Plan
- Assessment
Renal Function: SCR Decreasing
WBC's are: Trending Up
In the past 24 hrs, patient has been: Afebrile
Concomitant Antimicrobials: meropenem
- Assessment - Therapeutic Drug Monitoring
Random Level: 18.4 - drawn ~17.5H after previous dose of 1g
- Dosing Plan
Dosing by Level: Hold off on dosing today
- Monitoring Plan
Random Level: 04/22 0600
- Follow Up
Pharmacy will continue to follow.
Vancomycin Follow UP
- -
Patient Age: 74
Patient Sex: Female
Vancomycin Day #: 4
Indication: Skin And Soft Tissue
Requesting Provider: Dr. Myers
Pertinent Antimicrobial Allergies:
sulfamethoxazole / trimethoprim (From Bactrim) - hypotension
Height / Weight:
Height 5 ft 1 in
Actual Weight 98.1 kg
Pertinent Past Medical History: BMI~43, anal SCC, CKD
- Vital Signs / Lab Results
Temp Pulse Resp BP Pulse Ox
98.1 F 135 11 96/56 98
04/21/25 00:00 04/21/25 06:00 04/21/25 06:00 04/21/25 06:00 04/21/25 06:00
Lab Results - Hematology
04/19/25 04/20/25 04/21/25
03:54 04:13 03:09
WBC 16.0 H 16.3 H 18.0 H
Lab Results - Chemistry
04/19/25 04/20/25 04/21/25
03:54 04:13 03:09
BUN 119 H* 134 H* 144 H*
Creatinine 2.3 H 2.0 H 1.8 H
Estimated Creat Clear 23 27 29
Albumin 2.0 L
04/21/25
03:09
Lactic Acid 0.8
Microbiology Results
04/18/25 03:12 Blood Culture - Preliminary
Blood/Venous No Growth in 72 hours- Final report to follow
04/18/25 17:48 Blood Culture - Preliminary
Blood/Venous No Growth in 48 hours- Final report to follow
04/18/25 18:30 Urine Culture - Final
Urine No Significant Growth
Therapeutic Drug Monitoring
Random Vancomycin 18.4 ug/ml 04/21/25 03:09
--- NOTE | 2025-04-21 08:24 | W.PN.ID1 ---
Date of Service
Date of Service: April 21, 2025
Today's Communication
- if patient transitions to hospice then I would stop antibiotics and treat patient symptomatically
Assessment / Plan
Persistent Shock - suspect cardiogenic
Superficial necrosis of abdominal flap
Possible UTI
- blood cultures x2 in progress - no growth to date
- Urine culture finalized negative; she she did have significant pyuria on 04/17 which improved after initiation of antibiotics
- continue meropenem, vancomycin
- Patient remains persistently critically ill
- if patient transitions to hospice then I would stop antibiotics and treat patient symptomatically
Chief Complaint
-: Other (cardiogenic shock, wound dehiscence)
Subjective / Review of Systems
afebrile
remains on pressors - improved dose compared to last week
for transition to hospice when family have gathered
Vital Signs / Physical Exam
Vital Signs
Vital Signs
Temp Pulse Resp BP Pulse Ox
98.1 F 135 11 96/56 98
04/21/25 00:00 04/21/25 06:00 04/21/25 06:00 04/21/25 06:00 04/21/25 06:00
Physical Exam
Constitutional: Acutely Ill and Chronically Ill
Cardiovascular: Regular Rate and S1/S2; Negative Murmur or Rub
Pulmonary: Clear and Symmetric; Negative Wheezes or Rales
Gastrointestinal: Soft, Non Tender, Non Distended and Normal Bowel Sounds
Skin: Warm and Dry; Negative Rash or Jaundice
Objective Data
Lab Data
Lab Results
04/21/25 03:09
04/21/25 03:09
PT 21.5 Sec (11.4-14.6) H 04/04/25 14:51
INR 1.85 04/04/25 14:51
APTT 176.1 Sec (23.4-35.0) H* 04/21/25 03:09
Estimated Creat Clear 29 ml/min 04/21/25 03:09
Lactic Acid 0.8 mmol/L (0.7-2.0) 04/21/25 03:09
Total Bilirubin 2.5 mg/dl (0.2-1.3) H 04/21/25 03:09
GGT 15 U/L (12-43) 04/17/25 03:12
AST 33 U/L (14-36) 04/21/25 03:09
ALT 13 U/L (0-35) 04/21/25 03:09
Alkaline Phosphatase 60 U/L (38-126) 04/21/25 03:09
Most recent labs reviewed.
Micro Results:
04/18/25 03:12 Blood Culture - Preliminary
Blood/Venous No Growth in 72 hours- Final report to follow
04/18/25 17:48 Blood Culture - Preliminary
Blood/Venous No Growth in 48 hours- Final report to follow
04/18/25 18:30 Urine Culture - Final
Urine No Significant Growth
--- NOTE | 2025-04-21 08:27 | W.PN.CD ---
Today's Communication / Plan
-
Continue supportive care
Goals of care to be discussed today
Impression / Plan
-
Impression
74y F with PMH significant for A-Fib, CHF and anal cancer with recent recurrence who presented to on 03/28 for scheduled surgery for resection of recurrent malignancy. Patient underwent ureteroscopy with bilateral ureteral stents, robotic APR,
BIANKA / BSO, repair of vaginal defect and perineal reconstruction / flap on 03/28/25. Patient was successfully extubated post-op. She was on pressors post-op which were able to be weaned, but have since been restarted to maintain adequate perfusion.
Plan
#Hemorrhagic/hypovolemic shock should be resolved now still requiring pressor support
- s/p robotic abdominoperineal resection, repair of vaginal defect, robotic total laparoscopic hysterectomy, bilateral salpingo-oophorectomy, vertical rectus abdominis myocutaneous flap reconstruction of the perineum, cystoscopy and bilateral
ureteral stent insertion (03/28/25)
post-op course complicated by hypotension requiring blood products, fluids, vasopressors
s/p 5 U PRBC (4 on 03/28/2025 and 1 on 03/31/2025)
- Still requiring BP support on Levophed, wean as tolerated
- Maintain MAP > 65.
- random cortisol normal
- Updated ECho shows normal LV function
- Hemoglobin�8.4 today
# Persistent A-fib
Telemetry reviewed
Now with RVR, rates in 130s
Continue amiodarone 200 mg
Continue heparin GTT
Monitor CBC
Resume Eliquis when appropriate
#Acute on Chronic HFpEF:
-Echo 04/08/2025�EF 60 to 65%,
-also with moderate mitral stenosis, mod/severe TR, severe pulm HTn
- Patient appears volume overloaded, with bilateral upper and lower extremity edema.
- Bumex gtt. reduced to 1 mg/hour
- Patient is off of IV fluids, hopefully she can be off of TPN as well (to reduce fluid load)-decision left to colorectal/surgery.
- Cr stable 2.0
- Monitor weight, I/os, electrolytes.
- On NC 3L, wean as able.
#Acute on chronic anemia
Multifactorial�acute blood loss, ACD, aggressive IV fluids, chronic debility
S/p 6 units PRBC, 2 units FFP's
Hemoglobin at 8.4 today
Patient third spacing as well, s/p albumin IV infusion
Monitor CBC
Transfuse if Hb <8
Rest of her chronic conditions management per primary team.
Physical Exam
Vital Signs/Labs
Vital Signs
Temp Pulse Resp BP Pulse Ox
98.1 F 135 11 96/56 98
04/21/25 00:00 04/21/25 06:00 04/21/25 06:00 04/21/25 06:00 04/21/25 06:00
04/20/25 04/21/25 04/22/25
06:59 06:59 06:59
Actual Weight 220 lb 10.923 oz 216 lb 4.375 oz
04/21/25 03:09
04/21/25 03:09
PT 21.5 Sec (11.4-14.6) H 04/04/25 14:51
INR 1.85 04/04/25 14:51
APTT 176.1 Sec (23.4-35.0) H* 04/21/25 03:09
Magnesium 2.3 mg/dl (1.6-2.3) 04/21/25 03:09
Triglycerides 71 mg/dl (10-149) 04/21/25 03:09
04/14/25 04/21/25
05:18 03:09
[id number] Pept > 01769 > 57130
Physical Exam
Constitutional: No acute distress and Other (tired)
EENT: Anicteric
Cardiovascular: Rhythm/rate is irregular and Pedal edema present
Respiratory: Respiratory effort normal and Crackles Present
Neuro/Psych: Alert and Oriented
Data Reviewed
-
Date of Service: April 21, 2025
Medical Decision Making: Reviewed Test Results
EKG: Tracing Personally Visualized and interpreted (af)
Labs: Labs Reviewed by me
--- NOTE | 2025-04-21 08:37 | W.PN.INTV ---
Addendum entered and electronically signed by Ross Antunez MD 04/21/25 12:46:
Update: e learning developer met with family at bedside. Plan to transition to comfort focused care, and hospice care.
Medication orders changed to focus on comfort. Pain control with PRN Dilaudid.
Global Sourcing Manager service will be available as needed.
Original Note:
Today's Communication / Plan
Recommendations
Plan reviewed with attending
Assessment
-
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
status post robotic abdominoperineal resection, BIANKA/BSO, VRAM flap perineal reconstruction, 03/28. Patient admitted to ICU postoperatively given significant blood loss, hypotension requiring pressors.
Today, Pt unresponsive with AMS. Moaning and calling out incoherently. BUN 144, likely uremia contributing to AMS. Tachycardic hypotensive on pressors. Afebrile. Oxygen requirements down to 2L. CXR demonstrates diffuse infiltrates pneumonia vs ARDS.
Abdominal xray demonstrates dilated loops bowel ileus vs obstruction. Continuing goals of care conversations with diffuse multi-organ failure including pulmonary, renal, GI, cardiac insufficiency with worsening AMS.
Plan:
#Circulatory shock/hypotension - likely due to poor end-organ perfusion in setting of suspected severe PAD with possible sepsis
- She has suspected PAD as per Dr. Chen - her deep, inferior epigastric vessels were extremely calcified; on 04/15, Dr. Cintron performed an arterial line insertion procedure and her radial arteries on both extremities had almost no pulsatility
likely due to stiff arteries with severe calcification and PAD; this is likely systemic
- Pt remains on levophed and we will continue titrating to keep MAP>65; replete calcium, and could consider albumin to keep serum level >3g/dL
#Suspected sepsis - sources include urine, lung and skin; gallbladder ruled out
- Although she recently completed about 7 days of Zosyn (8/30 - morning of 04/12) and remains afebrile (although had been getting tylenol at times), Abx resumed given her persistent leukocytosis with concern for a lingering infection - source could be
due to aspiration pneumonia, wound on perineum vs UTI --> started meropenem 04/18; ID started IV vanc on 04/18; follow up set of blood cultures and urin Cx (04/18) No growth to date 04/21
- Stopped scheduled tylenol on 04/15
#Anemia + thrombocytopenia
- Monitoring H and H
- HIT panel negative
#Severe stomach distension with no air seen in ostomy and distended gas-filled loops of bowel concerning for severe ileus vs SBO
- Ostomy continues to have no output
- NPO
- Pt is high aspiration risk; keep NPO given concern for SBO vs ileus on AM of 04/19 --NGT inserted, keep on LIWS (700cc output overnight from 04/19 - 04/20); continue with TPN, stopping this as soon as clinically necessary to help reduce volume being
infused; unfortunately the patient has very poor appetite and now has malnutrition despite her being obese
#OSMANY on CKD (baseline creatinine approximately 1.4)
- Cr improving to 1.8
- Elevated BUN to 144. Uremia possibly associated with AMS
- She is net (+) 15L since admission and she is up 30 pounds since admission
- Nephrology following; she is heading towards HD, however family is likely heading towards hospice, hence would not offer HD at this point as it would prolong suffering. Monitor [K] and Tx for levels >5.5 - 6
#Pulmonary hypertension with right ventricular dysfunction + dilatation and moderate�severe TR
#Acute HFpEF exacerbation
#Paroxysmal afib
- Patient is in and out of A-fib; continue PO amio; replete K>4, Mg>2; cardiology on board, recs appreciated; heparin gtt
#Acute respiratory failure with hypoxia due to interstitial/alveolar edema in the setting of bilateral pleural effusions (R >L)
- On 2L oxygen. Continue to wean as tolerated.
- Stopped bumex. Continue to diurese as needed
- CXR demonstrates diffuse infiltrates pneumonia vs ARDS
#Cholelithiasis without evidence of acute cholecystitis
- LFTs stable. Pt previously complained of RUQ pain. Now diffuse, indistinguishable pain
#Generalized pain
- PRN dilaudid
- Continuing goals of care conversations with family
- She has become increasingly lethargic; she continues to be in pain after narcotics were adjusted; she screams out in pain during nursing care
#Morbid obesity
#Anal cancer s/p robotic APR with repair of vaginal defect, BIANKA�BSO and VRAM flap perineal reconstruction (03/28/2025) patholgically T4N0
#Locally advanced colorectal cancer s/p radiation with excisional debridement and adjacent tissue transfer (04/03/2025) - operative findings showed necrotic superficial tissue with viable deep muscle at the pelvic inlet
- If Cr improves then will check CTA abd aorta with runoff, requested by plastics, to assess gracilis flap blood supply, however pt is likely transitioning to hospice so would hold off on additional imaging
- Monitor PRETTY drain x3 output
- Transfuse blood products if needed to keep Hb >7-8 g/dL + platelets >50k; continue heparin gtt with transition to NOAC when clinically appropriate; she initially was going to go back to OR next week, per plastic surgery, however given that she is
worsening and is likely being TRX to hospice this upcoming week, surgery is not an option at this juncture. In addition, at this time she would not survive an operation and the risks are too high with low benefit
- Plastic surgery performed bedside wound debridement on 04/18--> fibrinous cap on the backside of her wound was removed and packed wet-to-dry with dilute betadine. No purulent fluid was seen and there was a small superficial cavity, also there were
features of typical pressure related injury seen
#NIDDM
- Maintain euglycemia with goal BG 140�180
DVT ppx: heparin gtt
Stress ulcer ppx: PPI
Guarded prognosis - goals of care discussed on 04/16 and again today on 04/17 (see separate update note from 04/17 for details). Pt is now DNR/DNI but to continue full medical care. This was discussed with the patient's daughter, Alysha, son Manuel, and
[id number], Camryn - all questions were answered.
Continue ICU level of care for this critically ill patient
Critical care statement: A total of 38 minutes of critical care time was provided for this patient today. This includes management of unstable vital signs, evaluation of the patient at bedside, reviewing the patient�s pertinent medical records
including radiographs, microbiology, laboratory evaluations, and��discussion with primary team, consultants, pharmacy, nutrition, physical therapy, case management, charge nurse, critical care nursing, and respiratory therapy.
Data:
CXR 04/02/25- Low lung volumes with patchy bibasilar opacities, likely atelectasis and/or small effusion. No significant effusions or pneumothorax appreciated.
03/28/25- Nasogastric tube is present with tip near the gastroesophageal junction and distal sidehole in the distal esophagus. Consideration for advancement of this tube. Interstitial edema. Linear atelectasis in the right midlung. Mild to moderate
elevation of the left hemidiaphragm, new since previous radiograph. Probable small bilateral pleural effusions.
CT CAP 02/21/25- Circumferential anal wall thickening consistent with known malignancy versus posttreatment change. Probably stable. No evidence of metastatic disease. However, extremely limited exam without IV contrast. Tiny pericardial effusion.
Stable. Progressed small right and new tiny left pleural effusions. Findings suggesting moderate bilateral lower lobe and mild upper lobe pneumonia. New. Mild mediastinal lymphadenopathy. Probably reactive. Stable. Gallstones. Stable. Mild diffuse
bladder wall thickening. This can be seen with cystitis or bladder outlet obstruction. Improved.
Findings suggesting bilateral lower third spacing. Progressed
Echo 03/25/2025: Normal biventricular function with mildly dilated RV, moderate mitral stenosis, severe TR, PA pressure 66
Subjective Dataa
Subjective Data
Date of Service:
Date of Service: April 21, 2025
Chief Complaint: Global Sourcing Manager Follow Up and Pulmonary Follow Up
Subjective:
Pt is unrepsonsive to verbal stimulation.
Objective Data
Data Reviewed
Vital Signs / I&O / Oxygen:
Vital Signs
Temp Pulse Resp BP Pulse Ox
98.1 F 135 11 96/56 98
04/21/25 00:00 04/21/25 06:00 04/21/25 06:00 04/21/25 06:00 04/21/25 06:00
Intake and Output
04/20/25 04/21/25 04/22/25
06:59 06:59 06:59
Intake Total 2171.3 / 2255.5 2283.1 / 2283.1
Output Total 4685 / 4685 4060 / 4060
Balance -2513.7 / -2429.5 -1776.9 / -1776.9
SaO2 98
Nasal Cannula flow liters per 2
minute
Physical Exam
General: Respiratory Distress (negative), Pain (generalized pain), Poor Appetite and Other (appears uncomfortable with frequent grimacing; screams in pain during nursing care)
HEENT: Normocephalic, Anicteric and Other (thick neck)
Cardiovascular: Irregular Rhythm (Irregularly irregular) and Peripheral Edema (+4 bilateral pitting edema/anasarca)
Respiratory: Wheeze (negative), Crackles (Bilateral), Rhonchi (negative), Accessory Resp Muscle Use (negative) and Stridor (negative)
GI: Soft, Distended (Abdominal obesity), Tender (diffuse tenderness), NG Tube, Other (abdominal incisions are noted, sacral tissue is yellow) and Other (LLQ ostomy with no gas or stool seen in bag; hypoactive bowel sounds)
Neurology: Tremors (negative) and Lethargic
Skin: Warm, Good Color (Mild pallor), Jaundice (negative) and Other (yellow sloughing of bottom, edematous third spacing in all 4 extremities)
Labs/Micro/Reports
Lab Data
04/21/25 03:09
04/21/25 03:09
Laboratory Results
04/21/25
03:09
APTT 176.1 H*
Microbiology
04/18/25 03:12 Blood/Venous Blood Culture - Preliminary
No Growth in 72 hours- Final report to follow
04/18/25 17:48 Blood/Venous Blood Culture - Preliminary
No Growth in 48 hours- Final report to follow
04/18/25 18:30 Urine Urine Culture - Final
No Significant Growth
--- NOTE | 2025-04-21 09:39 | PTCARENOTE ---
patient received moaning loudly, yelling out 'help me'. patient oriented to person only, moaning at any touch. medicated with roxicodone, tylenol and valium per prn order. patient quieter at rest, still moaning. with assessment and care patient
yelling with increased verbal and non verbal pain cues in spite of being premedicated. monitor afib, levophed, insulin, bumex and heparin per work list. glycemic per protocal. lungs with diminished breath sounds and fine crackles. no output from
ostomy. ngt draining scant amount very thick green liquid. brewer draining yellow urine. right carleen with large amount serous drainage. safe environment maintained
[2025-04-21 09:51] LABS: APTT 61.6 Sec (23.4-35.0)
--- NOTE | 2025-04-21 09:55 | W.PN.CRS1 ---
Addendum entered and electronically signed by Gerry Bradford MD 04/21/25 11:37:
I just now updated Alysha patient's daughter via phone regarding patient's situation and that comfort measures/Hospice would be the most humane option at this point. She appreciated my thoughts.
Original Note:
Today's Communication / Plan
-
continue current measures
now DNR
family discussions
tpn
Assessment/Plan
-
74 yo female s/p adjunctive chemo now presenting for operative management of anal cancer
POD #24 RAL APR (CRS), vaginal defect repair with BIANKA/BSO (POULTRY TRIMMER) and VRAM flap (Plastics)
POD #18 Excisional Debridement to muscle 68m53sd of superficial necrotic tissue, adjacent tissue transfer [id number]
POD #3 bedside wound debridement with plastics
Afebrile, HR 130's, levophed gtt
WBC 18.0 (16.3), Hgb 8.4 (8.4),
NGT: 500ml, stoma no output recorded, Drains: 570ml
-Stop Megace
-Continue TPN with insulin gtt (no plans to wean TPN at this time)
-Stop calorie count
�Appreciate ID consult - maintaining IV abx
-Stoma nurse following for stoma care
�Continue twice daily dressing changes with Santyl
-c/w PRETTY drains x2, follow outputs
-IS while awake
-Analgesics prn, Tylenol scheduled.
-PPI for GI ppx
- Continue hep drip
-Medical management as per ICU/medicine teams
-NGT in place
-Possible hospice per causticiser note. Will reach out to family today.
Subjective Data
Procedure
20 RAL APR (CRS), vaginal defect repair with BIANKA/BSO (POULTRY TRIMMER) and VRAM flap (Plastics)
14 Excisional Debridement to muscle [id number] of superficial necrotic tissue, adjacent tissue transfer 65d00vr
Subjective Data
Date of Service: April 21, 2025
Patient is somnolent and not responsive. She does moan when she is examined.
Objective Data
-
Vital Signs
Temp Pulse Resp BP Pulse Ox
97.6 F 112 22 76/43 98
04/21/25 08:51 04/21/25 09:01 04/21/25 09:01 04/21/25 09:01 04/21/25 09:01
Intake & Output
04/20/25 04/21/25 04/22/25
06:59 06:59 06:59
Intake Total 2171.3 / 2255.5 2283.1 / 2365.4 242.8 / 242.8
Output Total 4685 / 4685 4060 / 4060 275 / 275
Balance -2513.7 / -2429.5 -1776.9 / -1694.6 -32.2 / -32.2
Intake:
IV fluids (Total) 827.3 / 855.5 529.1 / 555.4 74.8 / 74.8
Heparin 264 / 275 249 / 258 27 / 27
Insulin 41.6 / 43.3 47.6 / 49.6 5.7 / 5.7
Norepinephrine 341.7 / 349.2 124.5 / 135.8 30.1 / 30.1
bumex 180 / 188 108 / 112 12
IV piggybacks 200 / 200
TPN/PPN 1344 / 1400 1344 / 1400 168 / 168
Amount instilled into GI Tube ( 210 / 210
Total)
Maverick Sump 210 / 210
Output:
Drain Output (Total) 585 / 585 570 / 570
Left Lower Abdomen Pierce- 150 / 150
Hoover
Right Lower Abdomen Pierce- 570 / 570 420 / 420
Hoover B
Gastrointestinal tube output ( 800 / 800 500 / 500
Total)
Maverick Sump 800 / 800 500 / 500
Urine, Rogers 3300 / 3300 2990 / 2990 275 / 275
Lab Results
04/21/25 03:09
04/21/25 03:09
Physical Exam
-
General: Other (Eyes closed, somnolent)
Abdomen: Soft, Non Distended, Non Tender and Other (PRETTY drains in place, serous)
Skin: Warm and Dry
Wound: Other (Ostomy warm and pink no output. Midline incision healing.)
--- NOTE | 2025-04-21 10:12 | W.PN.NEPH.PH ---
Today's Communication / Plan
-
dc bumex
Assessment/Plan
-
IMP:
Anal Cancer s/p Robotic APR, BIANKA/BSO, Repair of Vaginal Defect, Perineal Reconstruction / Flap 03/28
Concern for superficial necrosis of the flap s/p debridement 03/31
Acute Blood Loss Anemia
Shock likely secondary to hemorrhagic and hypovolemia
OSMANY on CKD III -cr 1.3-1.8
Elevated bilirubin
Thrombocytopenia
Moderate right pleural effusion
Vasovagal episode on 04/04/2025
Persistent Atrial Fibrillation
Acute on chronic HFpEF
Severe pulmonary hypertension
Transaminitis likely secondary to shock
Hypothermia
DM-II
Hypothyroidism
Hypocalcemia -corrected normal
Plan:
Maintain MAP greater than 65, wean pressors as allowed
She is volume overloaded but hypotensive and also orthopneic with severe TR but normal EF
Prognosis is poor at best
TPN per surgery
bun 144 - dc bumex gtt
hospice appropriate as pt is not HD candidate
dw icu

Critical care time 31 minutes
-
-
Date of Service: April 21, 2025
CC / HPI / ROS
-
Chief Complaint:
OSMANY
History of Present Illness:
OSMANY/Cr down to 2.0
Na better
BUN increasing
on TPN
critically ill in ICU
Review of Systems:
no CP/SOB
minimal responsiveness to verbal stim
Labs
-
Labs:
WBC 18.0 10^3/uL (4.8-10.8) H 04/21/25 03:09
RBC 2.80 10^6/uL (4.20-5.40) L 04/21/25 03:09
Hgb 8.4 g/dL (12.0-16.0) L 04/21/25 03:09
Hct 26.5 % (37.0-47.0) L 04/21/25 03:09
Plt Count 61 10^3/uL (130-400) L 04/21/25 03:09
Sodium 138 mmol/L (135-145) 04/21/25 03:09
Potassium 3.8 mmol/L (3.5-5.1) 04/21/25 03:09
Chloride 108 mmol/L (98-107) H 04/21/25 03:09
Carbon Dioxide 23 mmol/L (22-30) 04/21/25 03:09
BUN 144 mg/dl (7-17) H* 04/21/25 03:09
Creatinine 1.8 mg/dL (0.6-1.0) H 04/21/25 03:09
eGFR 29.02 04/21/25 03:09
Glucose 169 mg/dl (70-99) H 04/21/25 03:09
Calcium 8.8 mg/dl (8.4-10.2) 04/21/25 03:09
Phosphorus 3.9 mg/dl (2.5-4.5) 04/21/25 03:09
Jxz-V-Llvhaupttyi Pept > 74078 pg/ml 04/21/25 03:09
Albumin 2.0 g/dl (3.5-5.0) L 04/21/25 03:09
Physical Exam
-
Vital Signs:
Vital Signs
Temp Pulse Resp BP Pulse Ox
97.6 F 112 22 76/43 98
04/21/25 08:51 04/21/25 09:01 04/21/25 09:01 04/21/25 09:01 04/21/25 09:01
[2025-04-21 10:21] LABS: Glucose - Point of Care 175 mg/dl (70-99)
--- NOTE | 2025-04-21 10:27 | PTCARENOTE ---
Bumex gtt stopped as ordered. PTT subtherapeutic, dose increased. Plan for goals of care conversation with family planned for 1300.
--- NOTE | 2025-04-21 11:54 | HOSPNOTE ---
Family meeting scheduled for 1pm. More information to follow.
[2025-04-21 12:21] LABS: Glucose - Point of Care 204 mg/dl (70-99)
--- NOTE | 2025-04-21 13:08 | PTCARENOTE ---
Pt medicated with dilaudid. All gtts stopped. Comfort care started. NGT removed. O2 suppliment removed
[2025-04-21 13:27] LABS: Vitamin D, 25-OH*** 20.2 ng/mL (30-80)
--- NOTE | 2025-04-21 13:31 | PTCARENOTE ---
Changed admission number to hospice account.
--- NOTE | 2025-04-21 14:01 | CM ---
Patient has been discharged from acute care. Will be discharged and readmitted to Inpatient hospice. For transfer to [address] [place] [address]
== END 2025-04-21 13:14 | disposition hospice, inpatient (51) | DRG 329 ==
LOC: ICU 05:58
PROVIDERS: General Practice; Hospitalist; Internal Medicine; Internal Medicine Critical Care Medicine; Nurse Practitioner Family; Nurse Practitioner Primary Care; Obstetrics & Gynecology; Physician Assistant; Registered Nurse; Specialist; ADMITTING PHYSICIAN Surgery; CONSULT PHYSICIAN Internal Medicine; CONSULT PHYSICIAN Internal Medicine Cardiovascular Disease; CONSULT PHYSICIAN Internal Medicine Critical Care Medicine; CONSULT PHYSICIAN Student in an Organized Health Care Education/Training Program; FAMILY PHYSICIAN Physician Assistant; OTHER PHYSICIAN Hospitalist; REFERRING PHYSICIAN Surgery Plastic and Reconstructive Surgery
PROC: 8E0W4CZ Robotic Assisted Procedure of Trunk Region, Percutaneous Endoscopic Approach (ICD-10-PCS; 2025-03-28)
PROC: 0DTP4ZZ Resection of Rectum, Percutaneous Endoscopic Approach (ICD-10-PCS; 2025-03-28)
PROC: 0UT24ZZ Resection of Bilateral Ovaries, Percutaneous Endoscopic Approach (ICD-10-PCS; 2025-03-28)
PROC: 0UDB7ZZ Extraction of Endometrium, Via Natural or Artificial Opening (ICD-10-PCS; 2025-03-28)
PROC: 0UT74ZZ Resection of Bilateral Fallopian Tubes, Percutaneous Endoscopic Approach (ICD-10-PCS; 2025-03-28)
PROC: 0UT94ZZ Resection of Uterus, Percutaneous Endoscopic Approach (ICD-10-PCS; 2025-03-28)
PROC: 0UQG4ZZ Repair Vagina, Percutaneous Endoscopic Approach (ICD-10-PCS; 2025-03-28)
PROC: 0KXK0ZZ Transfer Right Abdomen Muscle, Open Approach (ICD-10-PCS; 2025-03-28)
PROC: 0DTQ4ZZ Resection of Anus, Percutaneous Endoscopic Approach (ICD-10-PCS; 2025-03-28)
PROC: 0D1N4Z4 Bypass Sigmoid Colon to Cutaneous, Percutaneous Endoscopic Approach (ICD-10-PCS; 2025-03-28)
PROC: 30233N1 Transfusion of Nonautologous Red Blood Cells into Peripheral Vein, Percutaneous Approach (ICD-10-PCS; 2025-03-28)
PROC: 0DTN4ZZ Resection of Sigmoid Colon, Percutaneous Endoscopic Approach (ICD-10-PCS; 2025-03-28)
PROC: 30233K1 Transfusion of Nonautologous Frozen Plasma into Peripheral Vein, Percutaneous Approach (ICD-10-PCS; 2025-03-31)
PROC: 0JXC0ZZ Transfer Pelvic Region Subcutaneous Tissue and Fascia, Open Approach (ICD-10-PCS; 2025-04-03)
PROC: 0KBM0ZZ Excision of Perineum Muscle, Open Approach (ICD-10-PCS; 2025-04-03)
PROC: 02HV33Z Insertion of Infusion Device into Superior Vena Cava, Percutaneous Approach (ICD-10-PCS; 2025-04-04)
PROC: 5A12012 Performance of Cardiac Output, Single, Manual (ICD-10-PCS; 2025-04-04)
PROC: 3E0436Z Introduction of Nutritional Substance into Central Vein, Percutaneous Approach (ICD-10-PCS; 2025-04-04)
PROC: 5A09357 Assistance with Respiratory Ventilation, Less than 24 Consecutive Hours, Continuous Positive Airway Pressure (ICD-10-PCS; 2025-04-05)
PROC: 04HY32Z Insertion of Monitoring Device into Lower Artery, Percutaneous Approach (ICD-10-PCS; 2025-04-15)
PROC: 0HB6XZZ Excision of Back Skin, External Approach (ICD-10-PCS; 2025-04-17)
DX: C21.1 Malignant neoplasm of anal canal (principal); A41.9 Sepsis, unspecified organism; G93.41 Metabolic encephalopathy; I50.33 Acute on chronic diastolic (congestive) heart failure; R57.1 Hypovolemic shock; R57.8 Other shock; R57.0 Cardiogenic shock; J69.0 Pneumonitis due to inhalation of food and vomit; R65.21 Severe sepsis with septic shock; J96.01 Acute respiratory failure with hypoxia; I48.19 Other persistent atrial fibrillation; I13.0 Hypertensive heart and chronic kidney disease with heart failure and stage 1 through stage 4 chronic kidney disease, or unspecified chronic kidney disease; Z68.41 Body mass index [BMI] 40.0-44.9, adult; N30.40 Irradiation cystitis without hematuria; N99.72 Accidental puncture and laceration of a genitourinary system organ or structure during other procedure; D62 Acute posthemorrhagic anemia; T81.31XA Disruption of external operation (surgical) wound, not elsewhere classified, initial encounter; T84.410A Breakdown (mechanical) of muscle and tendon graft, initial encounter; N17.9 Acute kidney failure, unspecified; F05 Delirium due to known physiological condition; E87.0 Hyperosmolality and hypernatremia; L89.322 Pressure ulcer of left buttock, stage 2; Z51.5 Encounter for palliative care; E66.9 Obesity, unspecified; T88.51XA Hypothermia following anesthesia, initial encounter; T41.1X5A Adverse effect of intravenous anesthetics, initial encounter; Y83.8 Other surgical procedures as the cause of abnormal reaction of the patient, or of later complication, without mention of misadventure at the time of the procedure; Z66 Do not resuscitate; N18.32 Chronic kidney disease, stage 3b; I25.10 Atherosclerotic heart disease of native coronary artery without angina pectoris; E78.00 Pure hypercholesterolemia, unspecified; E11.22 Type 2 diabetes mellitus with diabetic chronic kidney disease; E03.9 Hypothyroidism, unspecified; D50.9 Iron deficiency anemia, unspecified; Y84.2 Radiological procedure and radiotherapy as the cause of abnormal reaction of the patient, or of later complication, without mention of misadventure at the time of the procedure; E05.90 Thyrotoxicosis, unspecified without thyrotoxic crisis or storm; K21.9 Gastro-esophageal reflux disease without esophagitis; N83.201 Unspecified ovarian cyst, right side; I27.20 Pulmonary hypertension, unspecified; I05.0 Rheumatic mitral stenosis; N95.0 Postmenopausal bleeding; N83.8 Other noninflammatory disorders of ovary, fallopian tube and broad ligament; I45.10 Unspecified right bundle-branch block; I07.1 Rheumatic tricuspid insufficiency; D69.6 Thrombocytopenia, unspecified; R74.01 Elevation of levels of liver transaminase levels; E83.51 Hypocalcemia; E11.65 Type 2 diabetes mellitus with hyperglycemia; E11.51 Type 2 diabetes mellitus with diabetic peripheral angiopathy without gangrene; E83.42 Hypomagnesemia; E83.39 Other disorders of phosphorus metabolism; E87.6 Hypokalemia; Z95.0 Presence of cardiac pacemaker; Z86.73 Personal history of transient ischemic attack (TIA), and cerebral infarction without residual deficits; Z92.3 Personal history of irradiation; Z87.440 Personal history of urinary (tract) infections; Z92.21 Personal history of antineoplastic chemotherapy; Z79.01 Long term (current) use of anticoagulants
CPT/HCPCS: 36415; 36600; 71045; 71275; 74018; 74176; 74177; 76705; 80048; 80053; 80076; 80202; 81003; 81015; 82040; 82248; 82306; 82533; 82570; 82805; 82962; 82977; 83010; 83036; 83605; 83615; 83735; 83880; 84100; 84300; 84443; 84478; 84484; 85014; 85018; 85025; 85027; 85379; 85610; 85730; 86022; 86304; 86850; 86900; 86901; 86920; 87040; 87086; 88305; 88307; 88309; 88311; 88331; 93005; 93308; 93321; 93325; 93971; 97163; 97167; 97530; 97535; A4648; C1729; J1335; J1939; P9016; P9045; P9047; P9059; Q9967

== ENCOUNTER 2025-04-21 13:15 | Inpatient (IN) | payer OTHER, SELFPAY ==
[2025-04-21] MEDS: DILAUDID 1 MG IV ×2 (13:29→14:53)
--- NOTE | 2025-04-21 13:36 | HPS.HSE ---
Family Physician
-
Family Physician: INTERVIEWE UNKNOWN - PT NOT
Chief Complaint
-
Admission to inpatient hospice
History of Present Illness
Patient is 74 years old with history of renal cancer who admitted under surgery service with anal Cancer s/p Robotic APR, BIANKA/BSO, Repair of Vaginal Defect, Perineal Reconstruction / Flap
Concern for superficial necrosis of the flap, as prolonged ICU stay postoperatively complicated with shock, blood loss anemia, renal failure, surgical team discussed with family and plan to admit under hospice service
Medical History
Past Medical History
Past Medical History: Reports Other
Additional Past Medical History:
Squamous Cell Cancer of the Anus
Persistent Atrial Fibrillation
Chronic HFpEF
ASCVD / CVA
Hypertension
DM-II
Hypothyroidism
Obesity
Past Surgical History: Reports Other
Additional Past Surgical History:
Tubal Ligation
PPM Placement
Port Placement
Anal Biopsy
Social History
Tobacco: Non-smoker
Alcohol: Occasional (Rare)
Drug: None
Family History
Family History: Not pertinent
Allergies / Home Medications
Allergies reflects when Allergies were last updated in [facility].
Home Medications with original date entered in [facility]
Allergy/Medication List:
Allergies
Allergy/AdvReac Type Severity Reaction Status Date / Time
sulfamethoxazole (From Allergy hypotension Verified 02/18/25 02:09
Bactrim)
trimethoprim (From Bactrim) Allergy hypotension Verified 02/18/25 02:09
Home Medications
cholecalciferol (vitamin D3) 25 mcg (1,000 unit) tablet 1,000 units PO DAILY Supplement 07/31/21
tamsulosin 0.4 mg capsule 0.4 mg PO DAILY Urinary issue 07/31/21
atorvastatin 40 mg tablet 40 mg PO HS High cholesterol 09/28/22
levothyroxine 125 mcg tablet 125 mcg PO DAILY Thyroid 09/28/22
potassium chloride 20 mEq tablet,extended release 20 meq PO HS Electrolyte Repletion 12/02/22
amiodarone 200 mg tablet 200 mg PO DAILY #30 tabs 12/04/23
cyanocobalamin (vitamin B-12) 1,000 mcg tablet 1,000 mcg PO DAILY #30 tabs 12/04/23
metoprolol tartrate 25 mg tablet 25 mg PO BID #60 tabs 02/17/24
apixaban 2.5 mg tablet (Eliquis) 2.5 mg PO BID 12/04/24
ferrous sulfate 325 mg (65 mg iron) tablet (iron) 325 mg PO DAILY 12/04/24
folic acid 1 mg tablet 1 mg PO DAILY 12/04/24
glipizide 5 mg tablet 2.5 mg PO DAILY PRN high glucose level 12/04/24
insulin degludec 100 unit/mL (3 mL) subcutaneous pen (Tresiba FlexTouch U-100 insulin) 8 unit SQ HS Diabetes 12/04/24
furosemide 40 mg tablet 40 mg PO MOWEFR 02/18/25
Review of Systems
-
Unable to obtain full review of systems at this time due to: Acuity
Physical Exam
Physical Exam
General: Comfortable and Sweats
HEENT: NormoCephalic, Moist mucous membranes and Atraumatic
Respiratory: Rales, Rhonchi and Crackles
Cardiac: Irregular Rhythm and Tachycardia
Breast: Deferred by me
GI: Other (Surgical wound)
Genito-urinary: Deferred by me
Musculoskeletal: No Clubbing
Skin: Warm
Neuro: Other (Not responsive)
Hematologic/Lymphatic: No Lymphadenopathy
Psych: Confused
Impression/Plan
-
IMPRESSION:
Patient is a 74y F with PMH significant for A-Fib, CHF and anal cancer with recent recurrence who presented to on 03/28 for scheduled surgery for resection of recurrent malignancy. Patient underwent ureteroscopy with bilateral ureteral stents,
robotic APR, BIANKA / BSO, repair of vaginal defect and perineal reconstruction / flap on 03/28/25, admitted until surgery service and has prolonged ICU stay with shock, required pressors, anemia required blood transfusion, multiorgan failure, decision
made for comfort measures only by family.
Assessment/plan:
Acute on chronic diastolic (congestive) heart failure (Acute)
Persistent atrial fibrillation (Chronic)
Hyponatremia (Acute)
OSMANY (acute kidney injury) (Acute)
Hypovolemic shock (Acute)
ABLA (acute blood loss anemia) (Acute)
Pressure ulcer of sacral region, stage 2 (Chronic)
Squamous cell cancer, anus (Acute)
Plan:
Comfort measures only.
DNI/DNR.
Inpatient Hospice.
--- NOTE | 2025-04-21 14:08 | CM ---
Patient has been discharged from acute care. Will be discharged and readmitted to Inpatient hospice. For transfer to [address] [place] [address]
[2025-04-21] MEDS: DILAUDID 50 IV (14:30)
[2025-04-21] MEDS: DILAUDID 0.25 MG IV (14:33)
--- NOTE | 2025-04-21 15:28 | PTCARENOTE ---
Pt readmitted for hospice care. IV dilaudid gtt infusing, multiple boluses given as ordered due to grimacing and moaning.
--- NOTE | 2025-04-21 15:46 | PTCARENOTE ---
Time of 1540, pronounced by Dr. King.
--- NOTE | 2025-04-21 15:58 | W.PN.DEATH ---
Pronouncement of
-
Called to see patient to pronounce.
No spontaneous heart tones or respirations noted.
Patient not responsive to verbal stimuli.
Patient is pronounced .
Time of : 15:40
Date of : 04/21/25
Family Notified: Yes
--- NOTE | 2025-04-21 16:10 | W.DCSUMMARY ---
Discharge Summary
Discharge Data
Date of Admission: 04/21/25
Date of Discharge: 04/21/25
Total time spent discharging patient (in min): 40
-
Pending Results: No
Hospital Course
Hospital course
Patient is 74 years old with history of renal cancer who admitted under surgery service with anal Cancer s/p Robotic APR, BIANKA/BSO, Repair of Vaginal Defect, Perineal Reconstruction / Flap
Concern for superficial necrosis of the flap, had prolonged ICU stay postoperatively complicated with shock, blood loss anemia, renal failure, respiratory failure, surgical team discussed with family and plan to admit under hospice service.
Patient admitted under hospice service.
Called to see patient to pronounce.
No spontaneous heart tones or respirations noted.
Patient not responsive to verbal stimuli.
Patient is pronounced .
Case ID:�[id number]
Total time spent on today's encounter was 40 minutes which included time spent in counseling the patient/family regarding diagnosis and treatment plan as listed above, goals of care, and symptom management. Case was discussed with nursing staff,
specialists, and care coordinators/case management. All labs and imaging personally reviewed by me. Remainder the time spent in detailed review of previous records, lab data, imaging, and other medical provider documentation.
Anticipated Discharge: Today
Discharge Plan
-
Patient Disposition:
Date/Time
Date/Time: 04/21/25 15:40
Discharge Date and Time
Print Language: LUX[place]BOURG[place]
--- NOTE | 2025-04-21 17:25 | HOSPNOTE ---
13:00 - Met with family at bedside admitted patient [facility] for management of pain that can not be managed in an outpatient environment. Case discussed with RAVIN Hodges and Dr Antunez who are in agreement. Consents were signed by patient's
daughter Alysha. Discharge planing to commence once symptoms have been managed.
--- NOTE | 2025-04-21 17:47 | PTCARENOTE ---
Pt passed at 1540. Dr. Hays to bedside to pronounce. Family at bedside with passing.
--- NOTE | 2025-04-22 09:06 | CM ---
Patient on 04/21/25 @ 15:40.
== END 2025-04-21 15:40 | disposition expired | DRG 951 ==
LOC: ICU 13:15
PROVIDERS: ADMITTING PHYSICIAN General Practice
DX: Z51.5 Encounter for palliative care (principal); I50.33 Acute on chronic diastolic (congestive) heart failure; I63.9 Cerebral infarction, unspecified; C21.0 Malignant neoplasm of anus, unspecified; I48.19 Other persistent atrial fibrillation; E87.1 Hypo-osmolality and hyponatremia; D62 Acute posthemorrhagic anemia; N17.9 Acute kidney failure, unspecified; I25.10 Atherosclerotic heart disease of native coronary artery without angina pectoris; I11.0 Hypertensive heart disease with heart failure; E11.9 Type 2 diabetes mellitus without complications; E03.9 Hypothyroidism, unspecified; E66.9 Obesity, unspecified; Z85.528 Personal history of other malignant neoplasm of kidney; L89.152 Pressure ulcer of sacral region, stage 2; R57.1 Hypovolemic shock; Z66 Do not resuscitate